=== PATIENT | female | born 1975 | race Caucasian/White ===

== ENCOUNTER → 2020-08-11 12:19 | Outpatient (BNVA) | payer MEDICARE, SELFPAY | PROVIDERS: PCP Internal Medicine; Referring Provider Internal Medicine; Visit Provider Dietitian, Registered | DX: Z76.89 Persons encountering health services in other specified circumstances (principal) ==

== ENCOUNTER → 2020-10-16 08:24 | Outpatient (BNVA) | payer MEDICARE, SELFPAY | PROVIDERS: Visit Provider Physician Assistant | DX: Z76.89 Persons encountering health services in other specified circumstances (principal) ==

== ENCOUNTER → 2020-10-21 13:48 | Outpatient (BNVA) | payer MEDICARE, SELFPAY | PROVIDERS: PCP Internal Medicine; Visit Provider Physician Assistant | DX: Z90.3 Acquired absence of stomach [part of] (principal); Z98.84 Bariatric surgery status | CPT/HCPCS: Q3014 ==

== ENCOUNTER 2020-11-19 11:56 | Outpatient (REF) | payer MEDICARE, SELFPAY ==
[2020-11-19 13:27] LABS: MANUAL DIFF FLAG NO
[2020-11-19 13:46] LABS: Basophils Percent Auto 0.2 % (0-2); Eosinophils Absolute Auto 0.2 X10*3/uL (0.0-0.4); Eosinophils Percent Auto 5.5 % (0-4); Hematocrit 45.2 % (37-47); Hemoglobin 14.4 g/dl (12.0-16.0); Imm Gran Abs Auto 0.01 X10*3/uL (0.00-0.03); Imm Gran Pct Auto 0.2 % (0.0-0.4); Lymphocytes Absolute Auto 1.2 X10*3/uL (1.2-4.9); Lymphocytes Percent Auto 28.6 % (20-40); Mean Corpuscular HGB Conc 31.9 g/dl (31.0-35.0); Mean Corpuscular Hemoglobin 28.9 pg (27.0-33.0); Mean Corpuscular Volume 90.8 fL (80-98); Mean Platelet Volume 10.8 fL (9.4-12.3); Monocytes Absolute Auto 0.2 X10*3/uL (0.1-1.2); Monocytes Percent Auto 4.8 % (2-11); Neutrophils Absolute Auto 2.6 X10*3/uL (2.0-8.3); Neutrophils Percent Auto 60.7 % (45-73); Platelet Count 274 X10*3/uL (160-400); Red Blood Count 4.98 X10*6/uL (4.20-5.50); Red Cell Distribution Width 12.7 % (11.0-16.0); White Blood Count 4.2 X10*3/uL (4.8-10.8)
[2020-11-19 14:07] LABS: Alanine Aminotransferase 9 U/L (0-31); Albumin Level 4.8 g/dL (3.5-5.0); Alkaline Phosphatase 88 U/L (39-117); Anion Gap 14 (12-20); Aspartate Amino Transferase 23 U/L (5-31); Bilirubin Total 0.5 mg/dL (0.0-1.0); Blood Urea Nitrogen 15 mg/dL (9-16); Calcium 9.2 mg/dL (8.4-10.2); Carbon Dioxide 27 mmol/L (22-29); Chloride 106 mmol/L (96-108); Estimated Glomerular Filt Rate > 60; Glucose Random 48 mg/dL (60-115); Potassium 3.8 mmol/l (3.3-5.1); Sodium 143 mmol/L (135-145); Total Protein 8.4 g/dL (6.5-8.0)
[2020-11-19 14:37] LABS: Erythrocyte Sedimentation Rate 19 MM/HR (0-20)
== END 2020-11-19 11:57 | disposition home or self-care (01) ==
LOC: HO.LAB 11:56
PROVIDERS: PCP Internal Medicine; Visit Provider Student in an Organized Health Care Education/Training Program
DX: M05.9 Rheumatoid arthritis with rheumatoid factor, unspecified (principal); M79.7 Fibromyalgia; Z79.899 Other long term (current) drug therapy
CPT/HCPCS: 36415; 80053; 85025; 85652; 86140

== ENCOUNTER 2021-01-09 15:39 | Emergency (ER) | payer MEDICARE, SELFPAY ==
--- NOTE | ~2021-01-09 | XR_ITS ---
EXAMINATION: XR LUMBOSACRAL SPINE XR ELBOW LEFT XR KNEE RIGHT CLINICAL INFORMATION: Status post fall COMPARISON: CT 05/22/2019. Right knee radiographs 11/18/2014 TECHNIQUE: AP and lateral views of the lumbar spine with an additional coned down lateral spot view of the lumbosacral junction. AP, lateral, and oblique views of left elbow. AP, lateral, and bilateral oblique views of the right knee. FINDINGS: 5 non-rib bearing lumbar type vertebral bodies are seen. Prior posterior spinal fusion L4-S1. Intervertebral disc spacers at L4-L5 and L5-S1. There is degenerative endplate irregularity of the superior endplate of S1. Normal sagittal alignment. Vertebral body heights are maintained. No acute osseous abnormality seen. The left elbow is intact. No fracture, dislocation, or joint effusion seen. There is mild medial compartment joint space narrowing of the right knee. No fracture, dislocation, or joint effusion. XR/XR lumbar spine 2-3V IMPRESSION: No acute osseous abnormality of the left elbow, right knee, or lumbar spine.
--- NOTE | ~2021-01-09 | XR_ITS ---
EXAMINATION: XR LUMBOSACRAL SPINE XR ELBOW LEFT XR KNEE RIGHT CLINICAL INFORMATION: Status post fall COMPARISON: CT 05/22/2019. Right knee radiographs 11/18/2014 TECHNIQUE: AP and lateral views of the lumbar spine with an additional coned down lateral spot view of the lumbosacral junction. AP, lateral, and oblique views of left elbow. AP, lateral, and bilateral oblique views of the right knee. FINDINGS: 5 non-rib bearing lumbar type vertebral bodies are seen. Prior posterior spinal fusion L4-S1. Intervertebral disc spacers at L4-L5 and L5-S1. There is degenerative endplate irregularity of the superior endplate of S1. Normal sagittal alignment. Vertebral body heights are maintained. No acute osseous abnormality seen. The left elbow is intact. No fracture, dislocation, or joint effusion seen. There is mild medial compartment joint space narrowing of the right knee. No fracture, dislocation, or joint effusion. XR/XR elbow LT 2V IMPRESSION: No acute osseous abnormality of the left elbow, right knee, or lumbar spine.
--- NOTE | ~2021-01-09 | XR_ITS ---
EXAMINATION: XR LUMBOSACRAL SPINE XR ELBOW LEFT XR KNEE RIGHT CLINICAL INFORMATION: Status post fall COMPARISON: CT 05/22/2019. Right knee radiographs 11/18/2014 TECHNIQUE: AP and lateral views of the lumbar spine with an additional coned down lateral spot view of the lumbosacral junction. AP, lateral, and oblique views of left elbow. AP, lateral, and bilateral oblique views of the right knee. FINDINGS: 5 non-rib bearing lumbar type vertebral bodies are seen. Prior posterior spinal fusion L4-S1. Intervertebral disc spacers at L4-L5 and L5-S1. There is degenerative endplate irregularity of the superior endplate of S1. Normal sagittal alignment. Vertebral body heights are maintained. No acute osseous abnormality seen. The left elbow is intact. No fracture, dislocation, or joint effusion seen. There is mild medial compartment joint space narrowing of the right knee. No fracture, dislocation, or joint effusion. XR/XR knee RT 2V IMPRESSION: No acute osseous abnormality of the left elbow, right knee, or lumbar spine.
[2021-01-09 15:44] VITALS: BP 155/98; PULSE 82; RESP 16; TEMP 36.3; O2SAT 100; BMI 30.4
--- NOTE | 2021-01-09 17:42 | ED_ITS ---
HPI - Fall General Chief Complaint: Fall Stated Complaint: R side pain/back pain S/P fall Time Seen by Provider: 01/09/21 15:59 Source: patient Mode of arrival: ambulatory Limitations: no limitations History of Present Illness HPI Narrative: Slip and fall at home yesterday on ice complaining of right knee, lower back and left elbow pain. Denies any head injury, no LOC, no neck pain. Onset (ago): day(s) Fall from: standing Fall witnessed: yes, by family Place fall occurred: home Loss of consciousness: none Prolonged down time: no Symptoms prior to fall: none Context: tripped/slipped Location of injury: other (Left level, lower back, right knee) Associated symptoms (after fall): denies Related Data Home Medications Medication Instructions Recorded Confirmed albuterol sulfate 90 mcg/actuation 2 puff INHALATION Q4-6H PRN 08/06/20 10/21/20 aerosol inhaler buprenorphine 8 mg-naloxone 2 mg 2 film SUBLINGUAL DAILY 08/06/20 10/21/20 sublingual film bupropion HCl 100 mg tablet 100 mg PO TID 08/06/20 10/21/20 clonazepam 1 mg tablet 1 mg PO BID 08/06/20 10/21/20 dicyclomine 10 mg capsule 10 mg PO TID 08/06/20 10/21/20 fluticasone propionate 50 1 spray INTRANASAL DAILY 08/06/20 10/21/20 mcg/actuation nasal spray,suspension hydroxychloroquine 200 mg tablet 200 mg PO BID 08/06/20 10/21/20 [id number]-opt-[id number] fumarate 18 1 tab-cap PO DAILY 08/06/20 10/21/20 mg-FA 600 mcg-vit K 40 mcg capsule omeprazole 40 mg-sodium 1 cap PO DAILY 08/06/20 08/06/20 bicarbonate 1.1 gram capsule ondansetron 4 mg disintegrating 4 mg PO Q8H 08/06/20 08/06/20 tablet pantoprazole 40 mg tablet,delayed 40 mg PO DAILY 08/06/20 08/06/20 release sod picosulf 10 mg-magnes 3.5 160 ml PO DAILY 08/06/20 08/06/20 gram-citric 12 gram/160 mL oral solution mecobalamin (vitamin B12) 1,000 1,000 mcg PO DAILY 10/21/20 10/21/20 mcg chewable tablet Previous Rx's Medication Instructions Recorded tizanidine 4 mg tablet 4 mg PO TID PRN #90 tab 08/21/20 linaclotide 290 mcg capsule 290 mcg PO QAM #30 cap 09/11/20 alcohol swabs 1 pad TOPICAL DIRECTED #100 pad 10/06/20 folic acid 1 mg tablet 1 mg PO QAM #30 tab 10/28/20 gabapentin 400 mg capsule 400 mg PO TID #90 cap 11/04/20 methotrexate (PF) 25 mg/0.5 mL 25 mg SUBCUT QWEEK #2 ml 12/01/20 subcutaneous auto-injector ibuprofen 600 mg PO Q6H PRN #20 tab 01/09/21 Allergies Allergy/AdvReac Type Severity Reaction Status Date / Time shellfish derived Allergy Severe ANAPHYLAXIS Unverified 07/23/20 16:59 [SHELLFISH DERIVED] latex [LATEX] Allergy Intermediate RASH Unverified 07/23/20 16:59 onion [ONION] Allergy Intermediate RASH Unverified 07/23/20 16:59 ENVIROMENTAL Allergy Intermediate HAYFEVER Uncoded 07/23/20 16:59 Food Allergy Formula Allergy Unknown Uncoded 09/11/19 00:00 latex Allergy Unknown Uncoded 06/24/20 00:00 Onions Allergy Unknown Uncoded 06/24/20 00:00 Pt states no medication Allergy Unknown Uncoded 06/24/20 00:00 allerg seasonal allergies Allergy Unknown Uncoded 09/11/19 00:00 shellfish Allergy Unknown Uncoded 06/24/20 00:00 Review of Systems Review of Systems: Constitutional: No Weight loss, No Fever, No Chills, No Night Sweats, No Fatigue, No Malaise ENT/Mouth: No Hearing loss, No Ear Pain, No Nasal Congestion, No Sinus Pain, No Hoarseness, No sore throat, No Rhinorrhea, No Swallowing Difficulty Eyes: No Eye Pain, No Swelling, No Redness, No Foreign Body, No Discharge, No Vision Changes Cardiovascular: No Chest Pain, No SOB, No Dyspnea on Exertion, No Orthopnea, No Edema, No Palpitations Respiratory: No Cough, No Sputum, No Wheezing, No Dyspnea Gastrointestinal: No Nausea, No Vomiting, No Diarrhea, No Constipation, No abdominal Pain, No Hematochezia, No Melena Genitourinary: No Dysuria, No Urinary Frequency, No Hematuria, No Urinary Incontinence, No Urgency, No Flank Pain, No Urinary Flow Changes, No Hesitancy Musculoskeletal: No joint pain, No Myalgias, No Joint Swelling, as noted per HPI Skin: No Skin Lesions, No rash Neuro: No Weakness, No Numbness, No Paresthesias, No Loss of Consciousness, No Dizziness, No Headache Psych: No Social Issues Heme/Lymph: No Bruising, No Bleeding,No Lymphadenopathy Endocrine: No Polyuria, No Polydipsia, No Temperature Intolerance Yes all other systems are reviewed and are negative [facility] Past Medical History Medical History Anemia Arthritis Asthma Carpal tunnel syndrome on both sides Depression Fibromyalgia Hypertension Kidney calculi Surgical History H/O abdominoplasty H/O section H/O gastric bypass H/O hemorrhoidectomy H/O tubal ligation History of bilateral breast reduction surgery History of knee surgery Social History Social History Advance Directives: No Advance Directives Information Provided: Yes Physical Exam Vital Signs: Vital Signs: Last Vital Signs Temp 97.3 F 01/09/21 15:44 Pulse 82 01/09/21 15:44 Resp 16 01/09/21 15:44 BP 155/98 H 01/09/21 15:44 Pulse Ox 100 01/09/21 15:44 Body Mass Index 30.4 Reviewed Const: General: cooperative and healthy appearing; No acute distress or intoxicated appearing Nutritional Appearance: overweight Orientation/consciousness: patient oriented x3 HENMT: Head: Yes normal to inspection Ears: hearing grossly normal bilaterally Eyes: General: appearance normal, both eyes and all related structures Visual White: normal visual white by confrontation Neck: Neck: Yes normal visual inspection, No positive Brudzinski's sign, No positive Kernig's sign and No tender Thyroid: Thyroid normal Chest: Chest palpation & inspection: normal inspection of the chest, no crepitus and no tenderness Resp: Effort & Inspection: normal respiratory effort Auscultation: clear to auscultation bilaterally Cardio: Jugular venous distension: no JVD Rhythm: regular rhythm Heart sounds: S1 normal heart sound present and S2 normal heart sound present GI: Inspection: Yes normal to inspection Palpation (GI): Soft to palpation Percussion: Yes normal to percussion Auscultation: normal bowel sounds : General: Yes no CVA tenderness Back/Spine/Pelvis: Back: no CVA tenderness Thoracic/Lumbar Spine: paraspinal muscle tenderness (No step-off, rash) on the right Skin: Other: No signs of abrasion or ecchymosis General skin exam: no rashes or lesions noted Neuro: General: patient oriented x3 Extrem: General: Yes normal to inspection Right upper extremity: normal to inspection, full ROM and elbow/forearm Details: tenderness Location: of the olecranon Right lower extremity: full ROM and knee Details: normal to inspection, tenderness Location: of the infrapatellar area and other (Otherwise ligament exam within normal limits) MDM - Fall MDM Narrative Medical decision making narrative: Mechanical fall without prolonged downtime no prodromal symptoms AP strain /contusion type injury plain films rule out acute osseous and treat with muscle relaxants/NSAIDs. Medical Records Attestation: I reviewed the patient's medical records. Lab Data Attestation: I reviewed the patient's lab results. Discharge Plan Discharge Clinical Impression: Fall, Acute lumbar myofascial strain, Contusion Patient Disposition: Home, Self-Care Instructions: Muscle Strain (ED), Contusion in Adults (ED) Additional Instructions: The x-rays of you're right knee lower back and left elbow did not show any evidence of any fracture You have soft tissue contusion and muscle strain You need to do gentle stretching warm compresses and take anti-inflammatory medications such as ibuprofen as prescribed and muscle relaxants such as cyclobenzaprine which will give her prescription today Do not drink alcohol or drive while taking this medication as it can make her sleepy and drowsy Follow up with her primary care doctor as needed Return if any concerns worsening symptoms Thank you Prescriptions: New ibuprofen 600 mg tablet 600 mg PO Q6H PRN (Reason: pain) Qty: 20 RF: 0 No Action tizanidine 4 mg tablet 4 mg PO TID PRN (Reason: muscle spasticity) Qty: 90 RF: 5 linaclotide [Linzess] 290 mcg capsule 290 mcg PO QAM Qty: 30 RF: 3 alcohol swabs [Alcohol Prep Pads] Pads, Medicated 1 pad topical DIRECTED Qty: 100 RF: 5 folic acid 1 mg tablet 1 mg PO QAM Qty: 30 RF: 5 gabapentin 400 mg capsule 400 mg PO TID Qty: 90 RF: 3 Rasuvo (PF) 25 mg/0.5 mL auto-injector 25 mg subcut QWEEK Qty: 2 RF: 3 hydroxychloroquine [Plaquenil] 200 mg tablet 200 mg PO BID RF: 0 Clenpiq 10 mg-3.5 gram -12 gram/160 mL solution 160 ml PO DAILY RF: 0 ondansetron 4 mg tablet,disintegrating 4 mg PO Q8H RF: 0 omeprazole-sodium bicarbonate [Zegerid] 40-1.1 mg-gram capsule 1 cap PO DAILY RF: 0 dicyclomine 10 mg capsule 10 mg PO TID RF: 0 pantoprazole 40 mg tablet,delayed release (DR/EC) 40 mg PO DAILY RF: 0 Multi For Her 18 mg iron-600 mcg-40 mcg capsule 1 tab-cap PO DAILY RF: 0 fluticasone propionate 50 mcg/actuation spray,suspension 1 spray intranasal DAILY RF: 0 bupropion HCl 100 mg tablet 100 mg PO TID RF: 0 buprenorphine-naloxone [Suboxone] 8-2 mg film 2 film sublingual DAILY RF: 0 albuterol sulfate 90 mcg/actuation HFA aerosol inhaler 2 puff inhalation Q4-6H PRNRF: 0 clonazepam 1 mg tablet 1 mg PO BID RF: 0 mecobalamin (vitamin B12) 1,000 mcg tablet,chewable 1,000 mcg PO DAILY RF: 0 Referrals: Kyra Drisocll MD [Primary Care Provider] - 1 week Interventions: ED Discharge Assessment Last Done: 01/09/21 18:05 Discharge Date/Time: 01/09/21 18:05
== END 2021-01-09 18:05 | disposition home or self-care (01) ==
PROVIDERS: Emergency Provider Emergency Medicine; PCP Internal Medicine
DX: S39.012A Strain of muscle, fascia and tendon of lower back, initial encounter (principal); S50.02XA Contusion of left elbow, initial encounter; S80.01XA Contusion of right knee, initial encounter; W00.0XXA Fall on same level due to ice and snow, initial encounter; I10 Essential (primary) hypertension; Y93.89 Activity, other specified; Y92.014 Private driveway to single-family (private) house as the place of occurrence of the external cause; Y99.9 Unspecified external cause status
CPT/HCPCS: 72100; 73070; 73560; 99283

== ENCOUNTER → 2021-02-03 08:09 | Outpatient (BNVA) | payer MEDICARE, SELFPAY | PROVIDERS: PCP Internal Medicine; Visit Provider Physician Assistant | DX: Z13.89 Encounter for screening for other disorder (principal) | CPT/HCPCS: 99212 ==

== ENCOUNTER → 2021-03-02 11:01 | Outpatient (BNVA) | payer MEDICARE, SELFPAY | PROVIDERS: PCP Internal Medicine; Visit Provider Internal Medicine Gastroenterology | CPT/HCPCS: Q3014 ==

== ENCOUNTER 2021-03-04 08:39 | Outpatient (REF) | payer OTHER, SELFPAY ==
[2021-03-04 09:42] LABS: Anion Gap 12 (12-20); Blood Urea Nitrogen 20 mg/dL (9-16); Calcium 9.8 mg/dL (8.4-10.2); Carbon Dioxide 29 mmol/L (22-29); Chloride 102 mmol/L (96-108); Estimated Glomerular Filt Rate > 60; Glucose Fasting 95 mg/dL (60-99); Potassium 4.2 mmol/L (3.3-5.1); Sodium 139 mmol/L (135-145)
[2021-03-04 09:50] LABS: Glucose Fasting 95 mg/dL (60-99)
[2021-03-04 10:04] LABS: Free T4 (Free Thyroxine) 0.86 ng/dL (0.71-1.85); Thyroid Stimulating Hormone 1.93 uIU/mL (0.32-4.0); Vitamin D 25-OH Total 18.1 ng/mL (>30)
[2021-03-04 10:54] LABS: Glucose 1 Hour 161 mg/dL
[2021-03-04 12:51] LABS: Glucose 2 Hour 27 mg/dL
[2021-03-04 13:27] LABS: Glucose 3 Hour 65 mg/dL
[2021-03-05 05:07] LABS: C Peptide 1.09 ng/mL (0.80-3.85)
[2021-03-05 10:17] LABS: DHEA Sulfate 102 mcg/dL (19-231); Insulin Level Total 4.7 uIU/mL
[2021-03-05 22:43] LABS: Adrenocorticotropic Hormone 52 pg/mL (6-50)
[2021-03-10 04:37] LABS: Proinsulin <4.0 pmol/L (< OR = 18.8)
[2021-03-10 21:11] LABS: Insulin Auto Antibody <0.4 U/mL (<0.4)
[2021-03-11 08:22] LABS: Chlorpropamide None Detected; Glimepiride None Detected; Glipizide None Detected; Glyburide None Detected; Nateglinide None Detected; Pioglitazone None Detected; Repaglinide None Detected; Rosiglitazone None Detected; Tolazamide None Detected; Tolbutamide None Detected
[2021-03-12 14:42] LABS: Insulin Growth Factor 2 473 ng/mL (267-616)
[2021-03-19 08:42] LABS: Beta-Hydroxybutyrate 0.5 mg/dL (0.0-3.0)
== END 2021-03-04 08:40 | disposition home or self-care (01) ==
LOC: HO.LAB 08:39
PROVIDERS: PCP Internal Medicine; Visit Provider Internal Medicine
DX: E16.2 Hypoglycemia, unspecified (principal); E55.9 Vitamin D deficiency, unspecified
CPT/HCPCS: 36415; 80048; 80337; 82010; 82024; 82306; 82533; 82627; 82951; 82952; 83525; 83789; 84206; 84439; 84443; 84681; 86337

== ENCOUNTER 2021-03-10 07:51 | Outpatient (REF) | payer OTHER, SELFPAY ==
[2021-03-11 20:56] LABS: Adrenocorticotropic Hormone 14 pg/mL (6-50)
[2021-03-17 12:44] LABS: Dexamethasone 123 ng/dL
== END 2021-03-10 07:52 | disposition home or self-care (01) ==
LOC: HO.LAB 07:51
PROVIDERS: PCP Internal Medicine; Visit Provider Internal Medicine
DX: R79.89 Other specified abnormal findings of blood chemistry (principal)
CPT/HCPCS: 36415; 80299; 82024; 82533

== ENCOUNTER 2021-03-22 12:43 | Day surgery (SDC) | payer OTHER, SELFPAY ==
--- NOTE | 2021-03-19 08:58 | P.CONAN_ITS ---
HPI - Anesthesia Eval Consult details Narrative: 45yo F for Upper Endoscopy and Colonoscopy s/p colonoscopy 07/2020 with [facility] Active Problems Active Problems: All Active Problems (Updated 03/08/21 @ 16:01 by [place] Ospina DO) Elevated cortisol level (Acute) Hypoglycemia (Acute) Epigastric abdominal pain (Acute) Excess skin (Acute) Vitamin D deficiency (Acute) Fibromyalgia (Acute) Arthritis (Acute) History of sleeve gastrectomy (Acute) Past Medical History Medical History Anemia Arthritis Asthma Carpal tunnel syndrome on both sides Depression Elevated cortisol level Fibromyalgia Hypertension Hypoglycemia Kidney calculi Family History Family History Father Diabetes HTN (hypertension) Cancer Heart disease Mother Cancer Diabetes HTN (hypertension) Surgical History Surgical History H/O abdominoplasty H/O section H/O colonoscopy H/O esophagogastroduodenoscopy H/O gastric bypass H/O hemorrhoidectomy H/O tubal ligation History of bilateral breast reduction surgery History of knee surgery Social History Social History Household Members: Children Alcohol intake: current Alcohol intake frequency: does not drink Smoking Status: Current some day smoker Substance Use Type: Marijuana Meds Allergies Allergy/AdvReac Type Severity Reaction Status Date / Time shellfish derived Allergy Severe ANAPHYLAXIS Verified 03/03/21 11:49 [SHELLFISH DERIVED] latex [LATEX] Allergy Intermediate RASH Verified 03/03/21 11:49 onion [ONION] Allergy Intermediate RASH Verified 03/03/21 11:49 ENVIROMENTAL Allergy Intermediate HAYFEVER Uncoded 03/03/21 11:49 Food Allergy Formula Allergy Unknown Anaphylaxis Uncoded 03/03/21 11:49 latex Allergy Unknown Anaphylaxis Uncoded 03/03/21 11:49 Onions Allergy Unknown Anaphylaxis Uncoded 03/03/21 11:49 Pt states no medication Allergy Unknown Anaphylaxis Uncoded 03/03/21 11:49 allerg seasonal allergies Allergy Unknown Anaphylaxis Uncoded 03/03/21 11:49 shellfish Allergy Unknown Anaphylaxis Uncoded 03/03/21 11:49 Home Medications Medication Instructions Recorded Confirmed Last Taken Type albuterol sulfate 90 mcg/actuation 2 puff INHALATION Q4-6H PRN 08/06/20 03/03/21 Unknown History aerosol inhaler buprenorphine 8 mg-naloxone 2 mg 2 film SUBLINGUAL DAILY 08/06/20 03/03/21 Unknown History sublingual film bupropion HCl 100 mg tablet 100 mg PO TID 08/06/20 03/03/21 Unknown History clonazepam 1 mg tablet 1 mg PO BID 08/06/20 03/03/21 Unknown History fluticasone propionate 50 1 spray INTRANASAL DAILY 08/06/20 03/03/21 Unknown History mcg/actuation nasal spray,suspension hydroxychloroquine 200 mg tablet 200 mg PO BID 08/06/20 03/03/21 Unknown History tzdycxhmy-evc-picf fumarate 18 1 tab-cap PO DAILY 08/06/20 03/03/21 Unknown History mg-FA 600 mcg-vit K 40 mcg capsule omeprazole 40 mg-sodium 1 cap PO DAILY 08/06/20 03/03/21 Unknown History bicarbonate 1.1 gram capsule ondansetron 4 mg disintegrating 4 mg PO Q8H 08/06/20 03/03/21 Unknown History tablet pantoprazole 40 mg tablet,delayed 40 mg PO DAILY 08/06/20 03/03/21 Unknown History release sod picosulf 10 mg-magnes 3.5 160 ml PO DAILY 08/06/20 03/03/21 Unknown History gram-citric 12 gram/160 mL oral solution mecobalamin (vitamin B12) 1,000 1,000 mcg PO DAILY 10/21/20 03/03/21 Unknown History mcg chewable tablet buspirone 15 mg tablet 15 mg PO BID 03/02/21 03/03/21 Unknown History vitamin E (dl, acetate) 45 mg (100 100 unit PO BEDTIME 03/02/21 03/03/21 Unknown History unit) capsule blood-glucose meter #1 ea 03/03/21 03/03/21 Unknown History ergocalciferol (vitamin D2) 1,250 1,250 mcg PO 2XW 03/03/21 03/03/21 Unknown History mcg (50,000 unit) capsule glucose 4 gram chewable tablet 4 g PO DIRECTED 03/03/21 03/03/21 Unknown Hist ory lancets 33 gauge #100 ea 03/03/21 03/03/21 Unknown History montelukast 10 mg tablet 10 mg PO QPM 03/03/21 03/03/21 Unknown History thiamine HCl (vitamin B1) 50 mg 50 mg PO QPM 03/03/21 03/03/21 Unknown History tablet Exam Exam Date and Time: March 19, 2021 0858 Pertinent Lab Results Pertinent Lab Results: Laboratory Tests 03/04/21 09:00 Sodium 139 Potassium 4.2 Chloride 102 Carbon Dioxide 29 BUN 20 H Creatinine 0.82 Assessment and Plan Assessment Anesthesia Assessment: Chart Reviewed
[2021-03-22 13:48] VITALS: BP 109/63; PULSE 48; RESP 15; TEMP 36.1; O2SAT 99; BMI 29.2
[2021-03-22] MEDS: Lactated Ringers 1,000 ML 100 ML IVCONT (14:00)
[2021-03-22 14:06] LABS: Glucose, Whole Blood 76 mg/dL (60-115)
--- NOTE | 2021-03-22 14:20 | PC.NURSE ---
Patients BS 76, Asymptomatic. Dr. Dee notified. 100ml dextrose 5% IV hung wide open per order. BS checked again after administration, 76. Patient remains asymptomatic. Dr. Dee aware. Okay to proceed.
--- NOTE | 2021-03-22 14:31 | MHC.SHP ---
Pre-Procedural Eval Section B Chief Complaint: epigastric pain Relevant Family History (Specify if Yes): Yes Relevant Social History: Other (specify) (THC) Present Medications: see Short Stay Collaborative assessment Medical History: Significant History (Anemia Arthritis Asthma Carpal tunnel syndrome on both sides Depression Elevated cortisol level Fibromyalgia Hypertension Hypoglycemia Kidney calculi) History of Previous Operations: Relevant previous surgery/procedure and date(s) (H/O abdominoplasty H/O section H/O colonoscopy H/O esophagogastroduodenoscopy H/O gastric bypass H/O hemorrhoidectomy H/O tubal ligation History of bilateral breast reduction surgery History of knee surgery) Allergies: Allergies Allergy/AdvReac Type Severity Reaction Status Date / Time shellfish derived Allergy Severe ANAPHYLAXIS Verified 03/03/21 11:49 [SHELLFISH DERIVED] latex [LATEX] Allergy Intermediate RASH Verified 03/03/21 11:49 onion [ONION] Allergy Intermediate RASH Verified 03/03/21 11:49 ENVIROMENTAL Allergy Intermediate HAYFEVER Uncoded 03/03/21 11:49 Food Allergy Formula Allergy Unknown Anaphylaxis Uncoded 03/03/21 11:49 latex Allergy Unknown Anaphylaxis Uncoded 03/03/21 11:49 Onions Allergy Unknown Anaphylaxis Uncoded 03/03/21 11:49 Pt states no medication Allergy Unknown Anaphylaxis Uncoded 03/03/21 11:49 allerg seasonal allergies Allergy Unknown Anaphylaxis Uncoded 03/03/21 11:49 shellfish Allergy Unknown Anaphylaxis Uncoded 03/03/21 11:49 Review of Systems Sugical H&P ROS: Negative: Constitution, Cardiovascular, Respiratory, Neurological, Psychiatric, Hem-Onc, Allergic/Immunologic, Gastrointestinal, Genitourinary, Musculoskeletal, Integumentary, Endocrine and Eyes/Ears/Nose/Throat Exam Surgical H&P Exam: Normal: HEENT, Normal: Heart, Normal: Lungs, Normal: Extremities, Normal: Abdomen, Normal: Skin and Normal: Neurological Plan Diagnosis/Plan: Unchanged I have reviewed the history and physical and performed a pertinent physical examination on my patient. No changes have occurred unless specified.
--- NOTE | 2021-03-22 14:43 | P.CONAN_ITS ---
[facility] Active Problems Active Problems: All Active Problems (Updated 03/08/21 @ 16:01 by [place] young DO) Elevated cortisol level (Acute) Hypoglycemia (Acute) Epigastric abdominal pain (Acute) Excess skin (Acute) Vitamin D deficiency (Acute) Fibromyalgia (Acute) Arthritis (Acute) History of sleeve gastrectomy (Acute) Past Medical History Medical History Anemia Arthritis Asthma Carpal tunnel syndrome on both sides Depression Elevated cortisol level Fibromyalgia Hypertension Hypoglycemia Kidney calculi Family History Family History Father Diabetes HTN (hypertension) Cancer Heart disease Mother Cancer Diabetes HTN (hypertension) Surgical History Surgical History H/O abdominoplasty H/O section H/O colonoscopy H/O esophagogastroduodenoscopy H/O gastric bypass H/O hemorrhoidectomy H/O tubal ligation History of bilateral breast reduction surgery History of knee surgery Social History Social History Household Members: Children Alcohol intake: current Alcohol intake frequency: does not drink Smoking Status: Current some day smoker Use of substances other than those prescribed or required for medical reasons: Yes Substance Use Type: Marijuana Substance Use Frequency: Occasionally Advance Directives: No Advance Directives Information Provided: Yes Recently lost weight without trying: No Meds Allergies Allergy/AdvReac Type Severity Reaction Status Date / Time shellfish derived Allergy Severe ANAPHYLAXIS Verified 03/03/21 11:49 [SHELLFISH DERIVED] latex [LATEX] Allergy Intermediate RASH Verified 03/03/21 11:49 onion [ONION] Allergy Intermediate RASH Verified 03/03/21 11:49 ENVIROMENTAL Allergy Intermediate HAYFEVER Uncoded 03/03/21 11:49 Food Allergy Formula Allergy Unknown Anaphylaxis Uncoded 03/03/21 11:49 latex Allergy Unknown Anaphylaxis Uncoded 03/03/21 11:49 Onions Allergy Unknown Anaphylaxis Uncoded 03/03/21 11:49 Pt states no medication Allergy Unknown Anaphylaxis Uncoded 03/03/21 11:49 allerg seasonal allergies Allergy Unknown Anaphylaxis Uncoded 03/03/21 11:49 shellfish Allergy Unknown Anaphylaxis Uncoded 03/03/21 11:49 Active Medications: Current Medications Generic Name Dose Route Start Last Admin Trade Name Freq PRN Reason Stop Dose Admin Albuterol Sulfate 2.5 mg 03/22/21 13:19 Albuterol Sulfate (0.083%) 2.5 Mg/3 Ml Vial.Neb INHALE ONCE PRN Shortness of Breath/Wheezing Lactated Ringer's 1,000 mls @ 100 mls/hr 03/22/21 13:30 03/22/21 14:00 Lr IVCONT 100 mls/hr .Q10H BONITA Administration Home Medications Medication Instructions Recorded Confirmed Last Taken Type albuterol sulfate 90 mcg/actuation 2 puff INHALATION Q4-6H PRN 08/06/20 03/03/21 Unknown History aerosol inhaler buprenorphine 8 mg-naloxone 2 mg 2 film SUBLINGUAL DAILY 08/06/20 03/03/21 Unknown History sublingual film bupropion HCl 100 mg tablet 100 mg PO TID 08/06/20 03/03/21 Unknown History clonazepam 1 mg tablet 1 mg PO BID 08/06/20 03/03/21 Unknown History fluticasone propionate 50 1 spray INTRANASAL DAILY 08/06/20 03/03/21 Unknown History mcg/actuation nasal spray,suspension hydroxychloroquine 200 mg tablet 200 mg PO BID 08/06/20 03/03/21 Unknown History rqbeoxeqv-iei-rsuh fumarate 18 1 tab-cap PO DAILY 08/06/20 03/03/21 Unknown History mg-FA 600 mcg-vit K 40 mcg capsule omeprazole 40 mg-sodium 1 cap PO DAILY 08/06/20 03/03/21 Unknown History bicarbonate 1.1 gram capsule ondansetron 4 mg disintegrating 4 mg PO Q8H 08/06/20 03/03/21 Unknown History tablet pantoprazole 40 mg tablet,delayed 40 mg PO DAILY 08/06/20 03/03/21 Unknown History release sod picosulf 10 mg-magnes 3.5 160 ml PO DAILY 08/06/20 03/03/21 Unknown History gram-citric 12 gram/160 mL oral solution mecobalamin (vitamin B12) 1,000 1,000 mcg PO DAILY 10/21/20 03/03/21 Unknown History mcg chewable tablet buspirone 15 mg tablet 15 mg PO BID 03/02/21 03/03/21 Unknown History vitamin E (dl, acetate) 45 mg (100 100 unit PO BEDTIME 03/02/21 03/03/21 Unknown History unit) capsule blood-glucose meter #1 ea 03/03/21 03/03/21 Unknown History ergocalciferol (vitamin D2) 1,250 1,250 mcg PO 2XW 03/03/21 03/03/21 Unknown History mcg (50,000 unit) capsule glucose 4 gram chewable tablet 4 g PO DIRECTED 03/03/21 03/03/21 Unknown History lancets 33 gauge #100 ea 03/03/21 03/03/21 Unknown History montelukast 10 mg tablet 10 mg PO QPM 03/03/21 03/03/21 Unknown History thiamine HCl (vitamin B1) 50 mg 50 mg PO QPM 03/03/21 03/03/21 Unknown History tablet Exam Exam Date and Time: March 22, 2021 1443 Height,Weight and Vital Signs: Height 5 ft 3 in Weight 74.843 kg Last Vital Signs Temp 97.0 F 03/22/21 13:48 Pulse 48 L 03/22/21 13:48 Resp 15 03/22/21 13:48 BP 109/63 03/22/21 13:48 Pulse Ox 99 03/22/21 13:48 Pertinent Lab Results Pertinent Lab Results: Laboratory Tests 03/22/21 13:45 POC Glucose 76 Airway Mallampati Class: II TM Dist: >3cm Neck ROM: Full Denture: Upper and Lower Partial: Lower Heart: RRR Lungs: CTA
[2021-03-22 14:45] LABS: Glucose, Whole Blood 76 mg/dL (60-115)
--- NOTE | 2021-03-22 15:16 | P.OP_ITS ---
Operative Note Operative Note Date of Service: 03/22/21 Narrative: Operative Information Procedure Description: EGD, Colonoscopy FLEXIBLE TRANSORAL UPPER GASTROINTESTINAL ENDOSCOPY AND COLONOSCOPY PROCEDURE NOTE UPPER ENDOSCOPY Consent: Indications for the procedure and potential complications of bleeding, perforation, reaction to medications and missed diagnosis were discussed with the patient and informed consent was obtained. Instrument: Olympus GIF H 190 J mid size upper endoscope Monitoring: Vital signs and clinical assessment, continuous EKG monitoring, Pulse oximetry, Carbon Dioxide monitoring and blood pressure monitoring were done throughout the procedure. Procedure: The patient was placed in the left lateral decubitis position and pre-procedure medications were administered and a bite block was placed. The endoscope was inserted into the mouth and advanced under direct vision to the jejunum. A careful inspection was made as the upper endoscope was withdrawn including a retroflexed examination of the proximal stomach; Findings and interventions are described below. Findings: Larynx:normal Esophagus: GE junction at 37 cm, diaphragm hiatus at 37 cm, normal mucosa Stomach pouch: Normal mucosa. Biopsies were obtained. Grade 2 flap valve on retroflexed examination of the cardia. Jejunum: Normal Intervention: none COLONOSCOPY Instrument: Olympus variable stiffness pediatric scope 190L Colonoscopy Monitoring: Vital signs and clinical assessment, continuous EKG monitoring, Pulse oximetry, Carbon Dioxide monitoring and blood pressure monitoring were done throughout the procedure. Colon withdrawal time was 8 minutes. Procedure: The patient was placed in the left lateral decubitis position and pre-procedure medications were administered. After a digital rectal examination of the ano-rectum, the video colonoscope was inserted into the rectum and advanced through the colon to the cecum/TI. The colonoscope was slowly withdrawn in a retrograde panoramic fashion and the colon mucosa was carefully examined including a retroflexed view of the rectum. Findings and interventions are described below. Procedure Difficulty:moderate Findings: Terminal Ileum-normal Cecum:normal Ascending Colon: normal Transverse Colon -normal Descending Colon:normal Sigmoid Colon: normal Rectum: Retroflexion with small internal hemorrhoids, grade I Anorectum - normal Colon preparation: [place] Bowel Preparation Scale Right colon; 2 Transverse colon: 2 Left colon; 1 (0 = Unprepared colon segment with mucosa not seen due to solid stool that cannot be cleared. 1 = Portion of mucosa of the colon segment seen, but other areas of the colon segment not well seen due to staining, residual stool and/or opaque liquid. 2 = Minor amount of residual staining, small fragments of stool and/or opaque liquid, but mucosa of colon segment seen well. 3 = Entire mucosa of colon segment seen well with no residual staining, small fragments of stool or opaque liquid) Impression and Post Procedure Diagnosis: Endoscopy Findings: normal Colonoscopy Findings: internal hemorrhoids Plan: Await Pathology results Repeat Colonoscopy in 1-2 years or earlier if clinically indicated High fiber diet leaflet avoid straining at stool, epsom salts and sitz bath, anusol supps or cream prn Above findings were reviewed with the patient and relevant handouts were provided if indicated.
--- NOTE | 2021-03-22 15:16 | PM.OP ---
Brief Operative Note Date of Service: 03/22/21 Pre-op diagnosis: epigastric pain, constipation Post-op diagnosis: same Procedure: see op note Surgeon: Manjula Back MD Anesthesia: MAC Was an Analytics Specialist used for this Procedure?: No Estimated blood loss (mL): 0 Condition: stable Disposition: PACU
[2021-03-22 15:24] VITALS: BP 102/58; PULSE 50; RESP 16; TEMP 36.3; O2SAT 99
[2021-03-22 15:37] VITALS: BP 109/65; PULSE 54; RESP 16; O2SAT 100
[2021-03-22 15:52] VITALS: BP 104/61; PULSE 59; RESP 16; TEMP 36.3; O2SAT 99
[2021-03-22 16:29] LABS: Glucose, Whole Blood 85 mg/dL (60-115)
== END 2021-03-22 16:31 | disposition home or self-care (01) ==
PROVIDERS: PCP Internal Medicine; Visit Provider Internal Medicine Gastroenterology
PROC: (CPT 45378; principal; 2021-03-22 14:10)
DX: K59.00 Constipation, unspecified (principal); R10.13 Epigastric pain; K64.0 First degree hemorrhoids; K44.9 Diaphragmatic hernia without obstruction or gangrene; I10 Essential (primary) hypertension; D64.9 Anemia, unspecified; K64.8 Other hemorrhoids; J45.909 Unspecified asthma, uncomplicated; E16.2 Hypoglycemia, unspecified; R94.7 Abnormal results of other endocrine function studies; Z79.899 Other long term (current) drug therapy; Z91.040 Latex allergy status; Z98.84 Bariatric surgery status; F17.210 Nicotine dependence, cigarettes, uncomplicated; F12.90 Cannabis use, unspecified, uncomplicated
CPT/HCPCS: 45378; 43239; 82947

== ENCOUNTER → 2021-03-23 09:11 | Outpatient (BNVA) | payer OTHER, SELFPAY | PROVIDERS: PCP Internal Medicine; Visit Provider Physician Assistant ==

== ENCOUNTER 2021-03-24 14:00 | Outpatient (RCR) | payer MEDICARE, SELFPAY | END 2021-04-12 13:47 | disposition other institution (70) | LOC: HO.PT 14:00 | PROVIDERS: PCP Internal Medicine; Visit Provider Internal Medicine | DX: M54.5 Low back pain (principal) | CPT/HCPCS: 97110; 97162 ==

== ENCOUNTER 2021-04-13 09:28 | Outpatient (REF) | payer OTHER, SELFPAY ==
[2021-04-13 10:54] LABS: MANUAL DIFF FLAG NO
[2021-04-13 11:06] LABS: Basophils Percent Auto 0.5 % (0-2); Eosinophils Absolute Auto 0.2 X10*3/uL (0.0-0.4); Hematocrit 38.6 % (37-47); Hemoglobin 12.3 g/dl (12.0-16.0); Imm Gran Abs Auto 0.01 X10*3/uL (0.00-0.03); Imm Gran Pct Auto 0.3 % (0.0-0.4); Lymphocytes Absolute Auto 1.3 X10*3/uL (1.2-4.9); Mean Corpuscular HGB Conc 31.9 g/dl (31.0-35.0); Mean Platelet Volume 10.8 fL (9.4-12.3); Monocytes Absolute Auto 0.3 X10*3/uL (0.1-1.2); Monocytes Percent Auto 6.5 % (2-11); Neutrophils Absolute Auto 2.2 X10*3/uL (2.0-8.3); Neutrophils Percent Auto 55.7 % (45-73); Platelet Count 248 X10*3/uL (160-400); Red Blood Count 4.24 X10*6/uL (4.20-5.50); Red Cell Distribution Width 15.1 % (11.0-16.0)
[2021-04-13 11:50] LABS: Erythrocyte Sedimentation Rate 14 MM/HR (0-20)
[2021-04-13 12:02] LABS: Alanine Aminotransferase 7 U/L (0-31); Albumin Level 4.3 g/dL (3.5-5.0); Alkaline Phosphatase 82 U/L (39-117); Anion Gap 10 (12-20); Aspartate Amino Transferase 23 U/L (5-31); Bilirubin Total 0.5 mg/dL (0.0-1.0); Blood Urea Nitrogen 14 mg/dL (9-16); C Reactive Protein 0.24 mg/dL (< or = 0.50); Calcium 9.2 mg/dL (8.4-10.2); Carbon Dioxide 28 mmol/L (22-29); Chloride 107 mmol/L (96-108); Estimated Glomerular Filt Rate > 60; Glucose Random 87 mg/dL (60-115); Potassium 4.4 mmol/L (3.3-5.1); Sodium 141 mmol/L (135-145); Total Protein 7.3 g/dL (6.5-8.0)
== END 2021-04-13 09:29 | disposition home or self-care (01) ==
LOC: HO.LAB 09:28
PROVIDERS: PCP Internal Medicine; Visit Provider Student in an Organized Health Care Education/Training Program
DX: M19.90 Unspecified osteoarthritis, unspecified site (principal)
CPT/HCPCS: 36415; 80053; 85025; 85652; 86140

== ENCOUNTER → 2021-04-26 08:29 | Outpatient (BNVA) | payer OTHER, SELFPAY | PROVIDERS: Visit Provider Internal Medicine | CPT/HCPCS: Q3014 ==

== ENCOUNTER 2021-04-27 13:00 | Outpatient (RCR) | payer OTHER, SELFPAY | END 2021-06-11 11:41 | disposition other institution (70) | LOC: HO.OT 13:00 | PROVIDERS: Visit Provider Student in an Organized Health Care Education/Training Program | DX: M05.9 Rheumatoid arthritis with rheumatoid factor, unspecified (principal) | CPT/HCPCS: 97033; 97110; 97140; 97167 ==

== ENCOUNTER 2021-04-28 06:58 | Outpatient (REF) | payer OTHER, SELFPAY ==
[2021-04-28 08:15] LABS: Alanine Aminotransferase < 6 U/L (0-31); Albumin Level 4.1 g/dL (3.5-5.0); Alkaline Phosphatase 69 U/L (39-117); Anion Gap 9 (12-20); Aspartate Amino Transferase 18 U/L (5-31); Bilirubin Total 0.5 mg/dL (0.0-1.0); Blood Urea Nitrogen 12 mg/dL (9-16); Carbon Dioxide 31 mmol/L (22-29); Chloride 105 mmol/L (96-108); Estimated Glomerular Filt Rate > 60; Glucose Random 101 mg/dL (60-115); Potassium 4.2 mmol/L (3.3-5.1); Sodium 141 mmol/L (135-145); Total Protein 6.7 g/dL (6.5-8.0)
[2021-04-28 08:17] LABS: Vitamin D 25-OH Total 27.5 ng/mL (>30)
[2021-04-30 17:07] LABS: Adrenocorticotropic Hormone 17 pg/mL (6-50)
[2021-05-05 12:27] LABS: Dexamethasone 38 ng/dL
== END 2021-04-28 06:59 | disposition home or self-care (01) ==
LOC: HO.LAB 06:58
PROVIDERS: PCP Internal Medicine; Visit Provider Internal Medicine
DX: R79.89 Other specified abnormal findings of blood chemistry (principal); E16.2 Hypoglycemia, unspecified; E55.9 Vitamin D deficiency, unspecified
CPT/HCPCS: 36415; 80053; 80299; 82024; 82306; 82533

== ENCOUNTER → 2021-05-04 15:44 | Outpatient (BNVA) | payer OTHER, SELFPAY | PROVIDERS: PCP Internal Medicine; Visit Provider Internal Medicine Pulmonary Disease | DX: J45.909 Unspecified asthma, uncomplicated (principal); Z91.09 Other allergy status, other than to drugs and biological substances; G47.33 Obstructive sleep apnea (adult) (pediatric) | CPT/HCPCS: 99202 ==

== ENCOUNTER → 2021-05-07 10:56 | Outpatient (BNVA) | payer OTHER, SELFPAY | PROVIDERS: PCP Internal Medicine; Referring Provider Internal Medicine; Visit Provider Physician Assistant | DX: L98.7 Excessive and redundant skin and subcutaneous tissue (principal); Z90.3 Acquired absence of stomach [part of] | CPT/HCPCS: 99212 ==

== ENCOUNTER → 2021-05-25 15:40 | Outpatient (BNVA) | payer OTHER, SELFPAY | PROVIDERS: PCP Internal Medicine; Visit Provider Student in an Organized Health Care Education/Training Program | DX: M05.9 Rheumatoid arthritis with rheumatoid factor, unspecified (principal); M79.7 Fibromyalgia; Z79.891 Long term (current) use of opiate analgesic; Z79.899 Other long term (current) drug therapy | CPT/HCPCS: 99212 ==

== ENCOUNTER 2021-06-01 12:01 | Emergency (ER) | payer OTHER, SELFPAY ==
--- NOTE | ~2021-06-01 | XR_ITS ---
EXAMINATION: XR CHEST CLINICAL INFORMATION: Chest pain COMPARISON: Chest radiographs 08/08/2019, 02/20/2019 TECHNIQUE: 2 views of the chest were obtained. FINDINGS: Lungs are clear. There is no pneumothorax or pneumomediastinum. No pleural reaction, infiltrate, or effusion. The costophrenic sulci are clear. The heart is normal in size. The hilar and mediastinal contours are unremarkable. No visible acute bony abnormality. XR/XR chest 2V IMPRESSION: Unremarkable examination.
[2021-06-01 12:01] VITALS: BP 135/68; PULSE 43; RESP 16; TEMP 37.3; O2SAT 98; BMI 31.5
--- NOTE | 2021-06-01 12:12 | ECG_ITS ---
Test Reason : WEAKNESS Blood Pressure : / mmHG Vent. Rate : 043 BPM Atrial Rate : 043 BPM P-R Int : 148 ms QRS Dur : 092 ms QT Int : 444 ms P-R-T Axes : 032 024 007 degrees QTc Int : 375 ms Marked sinus bradycardia Abnormal ECG When compared with ECG of 08-AUG-2019 13:21, Vent. rate has decreased BY 23 BPM QT has shortened Referred By: Generic ED Physician Electronically Signed By:STELLA ROBLEDO
[2021-06-01 12:23] LABS: Glucose, Whole Blood 104 mg/dL (60-115)
--- NOTE | 2021-06-01 13:23 | ED.WEAKNESS ---
HPI - Weakness General Chief complaint: Weakness Stated complaint: WEAKNESS X'S 1WEEK,L FOREARM PAIN Time Seen by Provider: 06/01/21 13:06 Source: EMS Mode of arrival: EMS Limitations: no limitations History of Present Illness HPI Narrative: 45 yo female with past medical history of anemia, arthritis, asthma, carpal tunnel syndrome on both sides, depression, seizure disorder, fibromyalgia, seropositive rheumatoid arthritis on methotrexte with complaints of generalized weakness for the last 1 week with feeling lightheaded like she might pass out. Two days ago she started to notice some chest pressure which has been intermittent since then. She feels like this was related to her anxiety. She denies any chest pressure at this time. No shortness of breath, cough, leg swelling, leg pain, fevers or chills. She received her J and J vaccine and January. No sick contact. No recent travel. She tells me she has not had much of an appetite this week. No weight loss. Also complaining of continued left arm pain after a fall in January. She has been seen by her primary care doctor several times for this. She has had negative x-rays. She has done physical therapy with feels like it has not helped. He is scheduling an outpatient MRI for her. She is on Suboxone. She also takes gabapentin, tizanidine. Of note the patient has a heart rate of 43. Patient tells me she used to have a history of tachycardia and was taking medications but has been off of these medications for more than 1 year. Under review of her chart she is noted to have heart rates ranging from 47-52 on her previous visits. Related Data Home Medications Medication Instructions Recorded Confirmed albuterol sulfate 90 mcg/actuation 2 puff INHALATION Q4-6H PRN 08/06/20 05/07/21 aerosol inhaler buprenorphine 8 mg-naloxone 2 mg 2 film SUBLINGUAL DAILY 08/06/20 05/07/21 sublingual film bupropion HCl 100 mg tablet 100 mg PO TID 08/06/20 05/07/21 clonazepam 1 mg tablet 1 mg PO BID 08/06/20 05/07/21 fluticasone propionate 50 1 spray INTRANASAL DAILY 08/06/20 05/07/21 mcg/actuation nasal spray,suspension [id number] fumarate 18 1 tab-cap PO DAILY 08/06/20 05/07/21 mg-FA 600 mcg-vit K 40 mcg capsule omeprazole 40 mg-sodium 1 cap PO DAILY 08/06/20 05/07/21 bicarbonate 1.1 gram capsule ondansetron 4 mg disintegrating 4 mg PO Q8H 08/06/20 05/07/21 tablet pantoprazole 40 mg tablet,delayed 40 mg PO DAILY 08/06/20 05/07/21 release sod picosulf 10 mg-magnes 3.5 160 ml PO DAILY 08/06/20 05/07/21 gram-citric 12 gram/160 mL oral solution mecobalamin (vitamin B12) 1,000 1,000 mcg PO DAILY 10/21/20 05/07/21 mcg chewable tablet buspirone 15 mg tablet 15 mg PO BID 03/02/21 05/07/21 vitamin E (dl, acetate) 45 mg (100 100 unit PO BEDTIME 03/02/21 05/07/21 unit) capsule blood-glucose meter #1 ea 03/03/21 05/07/21 ergocalciferol (vitamin D2) 1,250 1,250 mcg PO 2XW 03/03/21 05/07/21 mcg (50,000 unit) capsule glucose 4 gram chewable tablet 4 g PO DIRECTED 03/03/21 05/07/21 lancets 33 gauge #100 ea 03/03/21 05/07/21 montelukast 10 mg tablet 10 mg PO QPM 03/03/21 05/07/21 thiamine HCl (vitamin B1) 50 mg 50 mg PO QPM 03/03/21 05/07/21 tablet oxcarbazepine 600 mg tablet 600 mg PO BID 05/07/21 05/07/21 Previous Rx's Medication Instructions Recorded linaclotide 290 mcg capsule 290 mcg PO QAM #30 cap 09/11/20 alcohol swabs 1 pad TOPICAL DIRECTED #100 pad 10/06/20 ibuprofen 600 mg PO Q6H PRN #20 tab 01/09/21 gabapentin 400 mg capsule 400 mg PO TID #90 cap 02/16/21 tizanidine 4 mg tablet 4 mg PO TID PRN #90 tab 03/02/21 acarbose 25 mg tablet 25 mg PO TID 30 Days #90 tab 03/04/21 bisacodyl 5 mg tablet,delayed 10 mg PO ONCE 1 Days #2 tab 03/18/21 release polyethylene glycol 3350 17 238 g PO ONCE #238 g 03/18/21 gram/dose oral powder folic acid 1 mg tablet 1 mg PO QAM #30 tab 04/13/21 methotrexate (PF) 25 mg/0.5 mL 25 mg SUBCUT QWEEK #2 ml 04/21/21 subcutaneous auto-injector dexamethasone 1 mg tablet 1 mg PO DAILY 1 Days #1 tab 04/26/21 fluticasone furoate 200 1 inh INHALATION DAILY 30 Days #1 05/04/21 mcg-vilanterol 25 mcg/dose ea inhalation powder hydroxychloroquine 200 mg tablet 400 mg PO QAM #180 tab 05/14/21 dicyclomine 10 mg capsule 10 mg PO .prn 30 Days #30 cap 05/31/21 Allergies Allergy/AdvReac Type Severity Reaction Status Date / Time latex [LATEX] Allergy Intermediate RASH Verified 06/01/21 12:07 ENVIROMENTAL Allergy Intermediate HAYFEVER Uncoded 06/01/21 12:07 Food Allergy Formula Allergy Unknown Anaphylaxis Uncoded 06/01/21 12:07 Onions Allergy Unknown Anaphylaxis Uncoded 06/01/21 12:07 Pt states no medication Allergy Unknown Anaphylaxis Uncoded 06/01/21 12:07 allerg seasonal allergies Allergy Unknown Anaphylaxis Uncoded 06/01/21 12:07 shellfish Allergy Unknown Anaphylaxis Uncoded 06/01/21 12:07 Review of Systems Review of Systems: Yes all other systems are reviewed and are negative Constitutional: Constitutional: Reports no additional constitutional complaints, Denies body ache(s), Denies chills, Denies fever(s), Denies headache(s) and Reports weakness Eyes: Eyes: Reports no additional eye complaints and Denies change in vision ENT: Reports system reviewed and no additional complaints, except as documented, Reports dizziness, Denies headache(s), Denies nasal congestion, Denies nasal discharge and Denies neck pain Cardiovascular: Cardiovascular: Reports no additional cardiovascular complaints, Reports chest pain, Denies leg edema and Denies dyspnea Respiratory: Respiratory: Reports no additional respiratory complaints, Denies cough and Denies dyspnea Gastrointestinal: Gastrointestinal: Reports no additional gastrointestinal complaints, Denies abdominal pain, Denies diarrhea, Denies nausea and Denies vomiting Genitourinary: Genitourinary: Reports no additional female genitourinary complaints and Denies urinary incontinence Musculoskeletal: Musculoskeletal: Reports no additional musculoskeletal complaints, Denies back pain, Denies arthralgias, Denies joint swelling, Denies neck pain, Denies numbness and Denies tingling Integumentary/Breasts: Skin/Breast: Reports system reviewed and no additional complaints, except as docu and Denies rash Neurologic: Reports system reviewed and no additional complaints, except as documented, Denies Abnormal speech present, Reports dizziness, Denies headache(s), Denies numbness, Denies tingling and Reports weakness PMFSH Past Medical History Attestation statement: The following information was validated with the patient. Source: old records reviewed and nursing notes reviewed Medical History Anemia Arthritis Asthma Carpal tunnel syndrome on both sides Depression Elevated cortisol level Fibromyalgia Hypertension Hypoglycemia Kidney calculi Seropositive rheumatoid arthritis Surgical History H/O abdominoplasty H/O section H/O colonoscopy H/O esophagogastroduodenoscopy H/O gastric bypass H/O hemorrhoidectomy H/O tubal ligation History of bilateral breast reduction surgery History of knee surgery Family History Family History Father Diabetes HTN (hypertension) Cancer Heart disease Mother Cancer Diabetes HTN (hypertension) Social History Social History Household Members: Children Alcohol intake: current Alcohol intake frequency: does not drink Patient Tobacco Use Status: Never used Tobacco Substance Use Type: Marijuana Physical Exam Vital Signs: Vital Signs: Last Vital Signs Temp 98.8 F 06/01/21 14:52 Pulse 59 06/01/21 14:52 Resp 14 06/01/21 14:52 BP 118/70 06/01/21 14:52 Pulse Ox 100 06/01/21 14:52 Body Mass Index 31.5 Const: General: cooperative, healthy appearing, comfortable and no acute distress Orientation/consciousness: patient oriented x3 Limitations: no limitations HENMT: Head: Yes normal to inspection Ears: hearing grossly normal bilaterally General nose exam: Normal external nose present Face and sinus: Yes normal facial exam Mouth: Normal oral and palatal mucosa present Throat: Yes posterior oropharynx normal Eyes: General: appearance normal, both eyes and all related structures Pupils: Equal, round and reactive pupils present Neck: Neck: Yes normal visual inspection Chest: Chest palpation & inspection: normal inspection of the chest Resp: Effort & Inspection: normal respiratory effort Auscultation: clear to auscultation bilaterally Cardio: Rate: bradycardic (SB) Rhythm: regular rhythm Peripheral pulses: Peripheral pulses 2+ throughout GI: Inspection: Yes normal to inspection Palpation (GI): Soft to palpation and nontender Auscultation: normal bowel sounds Back/Spine/Pelvis: Thoracic/Lumbar Spine: thoracic and lumbar spine normal to inspection Skin: General skin exam: no rashes or lesions noted Neuro: General: patient oriented x3, no focal motor deficits and normal sensation to monofilament Cranial nerves: Yes CN's II-XII intact bilaterally, Yes Equal, round and reactive pupils present, Yes Bilaterally intact EOM present, Yes Nystagmus not present, Yes Normal facial strength present and Yes Midline tongue present Cognition (Neuro): normal cognition Speech: No Abnormal speech present Gait exam (Neuro): Normal gait present Motor exam (neuro): 5/5 motor strength present throughout Sensory Exam: Normal double simultaneous stimulation for sensation Extrem: General: Yes normal to inspection Course Course Course Narrative: 45-year-old female here with complaints of generalized weakness and feeling lightheaded for the last week worsened with position changes now with chest pressure for 2 days. Seen at [facility] and referred into the emergency department for further evaluation. Patient is not currently complaining of chest pain. Denies any shortness of breath, nausea, vomiting, fevers, chills, cough, leg swelling or pain. No recent travel or sick contact. Of note, the patient is also complaining of chronic left arm pain. She has been followed by her primary care doctor for this and has outpatient physical therapy and it has MRI which is pending. Complaining of continued pain. No new injury or trauma.. On exam the patient is well appearing neuro intact. Vital signs stable. She is noted to have bradycardia with rate of 43-47. Sinus Daniel on EKG. Patient was a previous history of tachycardia but is no longer on any rate control medications for greater than 1 year. On review of the chart the patient is noted to have a heart rate of 40s to 50s on her previous ED visits. Will check labs, EKG, orthostatic vital signs, UA, chest x-ray. [id number]+ortho. Will give 2LNS and re-assess. 1800-patient is feeling improved. Up and ambulatory with a steady gait. Labs, EKG, UA and chest x-ray all unremarkable. Patient tells me she does have continued pain in the left forearm but has a planned follow-up with her primary care doctor and for an outpatient MRI. This has been a chronic problem for her. Reviewed worrisome signs and symptoms of when to return to the emergency department. Comfortable discharge home. MDM - Weakness Medical Records Attestation: I reviewed the patient's medical records. Lab Data Attestation: I reviewed the patient's lab results. Result diagrams: 06/01/21 13:26 06/01/21 13:26 Labs: Lab Results 06/01/21 06/01/21 06/01/21 Range/Units 12:18 13:26 13:26 WBC 4.1 L (4.8-10.8) X10*3/uL RBC 4.18 L (4.20-5.50) X10*6/uL Hgb 12.2 (12.0-16.0) g/dl Hct 37.7 (37-47) % MCV 90.2 (80-98) fL MCH 29.2 (27.0-33.0) pg MCHC 32.4 (31.0-35.0) g/dl RDW 13.3 (11.0-16.0) % Plt Count 196 (160-400) X10*3/uL MPV 11.1 (9.4-12.3) fL Immature Gran % (Auto) 0.2 (0.0-0.4) % Neut % (Auto) 54.0 (45-73) % Lymph % (Auto) 32.8 (20-40) % [place] % (Auto) 9.6 (2-11) % Eos % (Auto) 2.7 (0-4) % Baso % (Auto) 0.7 (0-2) % Lymph # (Auto) 1.3 (1.2-4.9) X10*3/uL [place] # (Auto) 0.4 (0.1-1.2) X10*3/uL Eos # (Auto) 0.1 (0.0-0.4) X10*3/uL Baso # (Auto) 0.0 (0.0-0.2) X10*3/uL Abs Immat Gran (auto) 0.01 (0.00-0.03) X10*3/uL Absolute Neuts (auto) 2.2 (2.0-8.3) X10*3/uL Absolute Nucleated RBC 0.000 (0.0-0.012) X10*3/uL Nucleated RBC % (auto) 0.0 (0.0-0.2) /100WBC PT (9.9-13.0) SEC INR (0.9-1.1) Sodium 142 (135-145) mmol/L Potassium 4.3 (3.3-5.1) mmol/L Chloride 107 (96-108) mmol/L Carbon Dioxide 27 (22-29) mmol/L Anion Gap 12 (12-20) BUN 13 (9-16) mg/dL Creatinine 0.74 (0.5-1.4) mg/dL Estim Creat Clear Calc 94.5 Estimated GFR > 60 POC Glucose 104 (60-115) mg/dL Random Glucose 94 (60-115) mg/dL Calcium 9.3 (8.4-10.2) mg/dL Magnesium 1.9 (1.6-2.6) mg/dL Total Bilirubin (0.0-1.0) mg/dL Direct Bilirubin (0.0-0.5) mg/dL AST (5-31) U/L ALT (0-31) U/L Alkaline Phosphatase (39-117) U/L Total Creatine Kinase (26-140) U/L Troponin I High Sens (<3.5-17.0) ng/L Total Protein (6.5-8.0) g/dL Albumin (3.5-5.0) g/dL COVID-19 ([facility]) (Negative) COVID-19 Clin Com 06/01/21 06/01/21 06/01/21 Range/Units 13:26 13:49 13:49 WBC (4.8-10.8) X10*3/uL RBC (4.20-5.50) X10*6/uL Hgb (12.0-16.0) g/dl Hct (37-47) % MCV (80-98) fL MCH (27.0-33.0) pg MCHC (31.0-35.0) g/dl RDW (11.0-16.0) % Plt Count (160-400) X10*3/uL MPV (9.4-12.3) fL Immature Gran % (Auto) (0.0-0.4) % Neut % (Auto) (45-73) % Lymph % (Auto) (20-40) % [place] % (Auto) (2-11) % Eos % (Auto) (0-4) % Baso % (Auto) (0-2) % Lymph # (Auto) (1.2-4.9) X10*3/uL [place] # (Auto) (0.1-1.2) X10*3/uL Eos # (Auto) (0.0-0.4) X10*3/uL Baso # (Auto) (0.0-0.2) X10*3/uL Abs Immat Gran (auto) (0.00-0.03) X10*3/uL Absolute Neuts (auto) (2.0-8.3) X10*3/uL Absolute Nucleated RBC (0.0-0.012) X10*3/uL Nucleated RBC % (auto) (0.0-0.2) /100WBC PT (9.9-13.0) SEC INR (0.9-1.1) Sodium (135-145) mmol/L Potassium (3.3-5.1) mmol/L Chloride (96-108) mmol/L Carbon Dioxide (22-29) mmol/L Anion Gap (12-20) BUN (9-16) mg/dL Creatinine (0.5-1.4) mg/dL Estim Creat Clear Calc Estimated GFR POC Glucose (60-115) mg/dL Random Glucose (60-115) mg/dL Calcium (8.4-10.2) mg/dL Magnesium (1.6-2.6) mg/dL Total Bilirubin 0.2 (0.0-1.0) mg/dL Direct Bilirubin < 0.2 (0.0-0.5) mg/dL AST 24 (5-31) U/L ALT 10 (0-31) U/L Alkaline Phosphatase 68 (39-117) U/L Total Creatine Kinase 53 (26-140) U/L Troponin I High Sens 3.6 (<3.5-17.0) ng/L Total Protein 6.8 (6.5-8.0) g/dL Albumin 3.9 (3.5-5.0) g/dL COVID-19 ([facility]) Negative (Negative) COVID-19 Clin Com See Note 06/01/21 Range/Units 13:49 WBC (4.8-10.8) X10*3/uL RBC (4.20-5.50) X10*6/uL Hgb (12.0-16.0) g/dl Hct (37-47) % MCV (80-98) fL MCH (27.0-33.0) pg MCHC (31.0-35.0) g/dl RDW (11.0-16.0) % Plt Count (160-400) X10*3/uL MPV (9.4-12.3) fL Immature Gran % (Auto) (0.0-0.4) % Neut % (Auto) (45-73) % Lymph % (Auto) (20-40) % [place] % (Auto) (2-11) % Eos % (Auto) (0-4) % Baso % (Auto) (0-2) % Lymph # (Auto) (1.2-4.9) X10*3/uL [place] # (Auto) (0.1-1.2) X10*3/uL Eos # (Auto) (0.0-0.4) X10*3/uL Baso # (Auto) (0.0-0.2) X10*3/uL Abs Immat Gran (auto) (0.00-0.03) X10*3/uL Absolute Neuts (auto) (2.0-8.3) X10*3/uL Absolute Nucleated RBC (0.0-0.012) X10*3/uL Nucleated RBC % (auto) (0.0-0.2) /100WBC PT 11.8 (9.9-13.0) SEC INR 1.0 (0.9-1.1) Sodium (135-145) mmol/L Potassium (3.3-5.1) mmol/L Chloride (96-108) mmol/L Carbon Dioxide (22-29) mmol/L Anion Gap (12-20) BUN (9-16) mg/dL Creatinine (0.5-1.4) mg/dL Estim Creat Clear Calc Estimated GFR POC Glucose (60-115) mg/dL Random Glucose (60-115) mg/dL Calcium (8.4-10.2) mg/dL Magnesium (1.6-2.6) mg/dL Total Bilirubin (0.0-1.0) mg/dL Direct Bilirubin (0.0-0.5) mg/dL AST (5-31) U/L ALT (0-31) U/L Alkaline Phosphatase (39-117) U/L Total Creatine Kinase (26-140) U/L Troponin I High Sens (<3.5-17.0) ng/L Total Protein (6.5-8.0) g/dL Albumin (3.5-5.0) g/dL COVID-19 ([facility]) (Negative) COVID-19 Clin Com Imaging Data Chest x-ray: Attestation: I personally reviewed and interpreted this imaging study as follows: Radiologist's impression: EXAMINATION: XR CHEST CLINICAL INFORMATION: Chest pain COMPARISON: Chest radiographs 08/08/2019, 02/20/2019 TECHNIQUE: 2 views of the chest were obtained. FINDINGS: Lungs are clear. There is no pneumothorax or pneumomediastinum. No pleural reaction, infiltrate, or effusion. The costophrenic sulci are clear. The heart is normal in size. The hilar and mediastinal contours are unremarkable. No visible acute bony abnormality. XR/XR chest 2V IMPRESSION: Unremarkable examination. ECG Data Attestation: I personally reviewed and interpreted this ECG as follows: ECG interpretation date: 06/01/21 ECG interpretation time: 12:27 Interpretation: Sinus bradycardia with rate of 43, normal SC, normal QRS, normal QT Discharge Plan Discharge Clinical Impression: Orthostasis, Dehydration Patient Disposition: Home, Self-Care Instructions: Dehydration (ED) Additional Instructions: Increase fluids rest Change positions slowly Follow-up with your primary care doctor in regards to your chronic arm pain Prescriptions: No Action linaclotide [Linzess] 290 mcg capsule 290 mcg PO QAM Qty: 30 RF: 3 alcohol swabs [Alcohol Prep Pads] Pads, Medicated 1 pad topical DIRECTED Qty: 100 RF: 5 gabapentin 400 mg capsule 400 mg PO TID Qty: 90 RF: 3 tizanidine 4 mg tablet 4 mg PO TID PRN (Reason: for muscle spasm) Qty: 90 RF: 5 acarbose 25 mg tablet 25 mg PO TID 30 Days Qty: 90 RF: 11 polyethylene glycol 3350 [Miralax] 17 gram/dose powder 238 g PO ONCE Qty: 238 RF: 0 bisacodyl [Dulcolax (bisacodyl)] 5 mg tablet,delayed release (DR/EC) 10 mg PO ONCE 1 Days Qty: 2 RF: 0 folic acid 1 mg tablet 1 mg PO QAM Qty: 30 RF: 5 Rasuvo (PF) 25 mg/0.5 mL auto-injector 25 mg subcut QWEEK Qty: 2 RF: 3 hydroxychloroquine 200 mg tablet 400 mg PO QAM Qty: 180 RF: 1 dicyclomine 10 mg capsule 10 mg PO .prn 30 Days Qty: 30 RF: 1 ibuprofen 600 mg tablet 600 mg PO Q6H PRN (Reason: pain) Qty: 20 RF: 0 Clenpiq 10 mg-3.5 gram -12 gram/160 mL solution 160 ml PO DAILY RF: 0 ondansetron 4 mg tablet,disintegrating 4 mg PO Q8H RF: 0 omeprazole-sodium bicarbonate [Zegerid] 40-1.1 mg-gram capsule 1 cap PO DAILY RF: 0 pantoprazole 40 mg tablet,delayed release (DR/EC) 40 mg PO DAILY RF: 0 Multi For Her 18 mg iron-600 mcg-40 mcg capsule 1 tab-cap PO DAILY RF: 0 fluticasone propionate 50 mcg/actuation spray,suspension 1 spray intranasal DAILY RF: 0 bupropion HCl 100 mg tablet 100 mg PO TID RF: 0 buprenorphine-naloxone [Suboxone] 8-2 mg film 2 film sublingual DAILY RF: 0 albuterol sulfate 90 mcg/actuation HFA aerosol inhaler 2 puff inhalation Q4-6H PRNRF: 0 clonazepam 1 mg tablet 1 mg PO BID RF: 0 vitamin E (dl, acetate) 100 unit capsule 100 unit PO BEDTIME RF: 0 buspirone 15 mg tablet 15 mg PO BID RF: 0 oxcarbazepine 600 mg tablet 600 mg PO BID RF: 0 dexamethasone 1 mg tablet 1 mg PO DAILY 1 Days Qty: 1 RF: 0 mecobalamin (vitamin B12) 1,000 mcg tablet,chewable 1,000 mcg PO DAILY RF: 0 (DME) lancets 33 gauge misc See Rx Instructions ea Not Applicable BID Qty: 100 RF: 0 thiamine HCl (vitamin B1) 50 mg tablet 50 mg PO QPM RF: 0 ergocalciferol (vitamin D2) 1,250 mcg (50,000 unit) capsule 1,250 mcg PO 2XW RF: 0 montelukast 10 mg tablet 10 mg PO QPM RF: 0 glucose 4 gram tablet,chewable 4 g PO DIRECTED RF: 0 (DME) blood-glucose meter Kit See Rx Instructions ea Not Applicable BID Qty: 1 RF: 0 Breo Ellipta 200-25 mcg/dose blister with device 1 inh inhalation DAILY 30 Days Qty: 1 RF: 6 Interventions: ED Discharge Assessment Last Done: 06/01/21 20:25 Discharge Date/Time: 06/01/21 20:26
[2021-06-01 13:32] LABS: MANUAL DIFF FLAG NO
[2021-06-01 13:33] LABS: Basophils Percent Auto 0.7 % (0-2); Eosinophils Absolute Auto 0.1 X10*3/uL (0.0-0.4); Eosinophils Percent Auto 2.7 % (0-4); Hematocrit 37.7 % (37-47); Hemoglobin 12.2 g/dl (12.0-16.0); Imm Gran Abs Auto 0.01 X10*3/uL (0.00-0.03); Imm Gran Pct Auto 0.2 % (0.0-0.4); Lymphocytes Absolute Auto 1.3 X10*3/uL (1.2-4.9); Lymphocytes Percent Auto 32.8 % (20-40); Mean Corpuscular HGB Conc 32.4 g/dl (31.0-35.0); Mean Corpuscular Hemoglobin 29.2 pg (27.0-33.0); Mean Corpuscular Volume 90.2 fL (80-98); Mean Platelet Volume 11.1 fL (9.4-12.3); Monocytes Absolute Auto 0.4 X10*3/uL (0.1-1.2); Monocytes Percent Auto 9.6 % (2-11); Neutrophils Absolute Auto 2.2 X10*3/uL (2.0-8.3); Platelet Count 196 X10*3/uL (160-400); Red Blood Count 4.18 X10*6/uL (4.20-5.50); Red Cell Distribution Width 13.3 % (11.0-16.0); White Blood Count 4.1 X10*3/uL (4.8-10.8)
[2021-06-01 13:59] LABS: Anion Gap 12 (12-20); Blood Urea Nitrogen 13 mg/dL (9-16); Calcium 9.3 mg/dL (8.4-10.2); Carbon Dioxide 27 mmol/L (22-29); Chloride 107 mmol/L (96-108); Creatinine Clr Calc Pharmacy 94.5; Estimated Glomerular Filt Rate > 60; Glucose Random 94 mg/dL (60-115); Magnesium 1.9 mg/dL (1.6-2.6); Potassium 4.3 mmol/L (3.3-5.1); Sodium 142 mmol/L (135-145)
[2021-06-01 14:02] LABS: Prothrombin Time 11.8 SEC (9.9-13.0)
[2021-06-01] MEDS: Acetaminophen 325 MG TABLET 975 MG PO (14:02)
[2021-06-01 14:03] LABS: Troponin-I High Sensitivity 3.6 ng/L (<3.5-17.0)
[2021-06-01 14:06] VITALS: BP 126/65; PULSE 48
[2021-06-01 14:08] VITALS: BP 133/65; BP 136/79; PULSE 49; PULSE 65
[2021-06-01 14:09] LABS: COVID-19 Test Negative (Negative)
[2021-06-01 14:26] LABS: Alanine Aminotransferase 10 U/L (0-31); Albumin Level 3.9 g/dL (3.5-5.0); Alkaline Phosphatase 68 U/L (39-117); Aspartate Amino Transferase 24 U/L (5-31); Bilirubin Direct < 0.2 mg/dL (0.0-0.5); Bilirubin Total 0.2 mg/dL (0.0-1.0); Total Protein 6.8 g/dL (6.5-8.0)
[2021-06-01] MEDS: 0.9 % Sodium Chloride 2,000 ML 999 ML IV (14:31)
[2021-06-01 14:52] VITALS: BP 118/70; PULSE 59; RESP 14; TEMP 37.1; O2SAT 100
[2021-06-02 21:31] LABS: Lyme Abs Screen <0.90 index
== END 2021-06-01 20:26 | disposition home or self-care (01) ==
PROVIDERS: Nurse Practitioner Family; Emergency Provider Emergency Medicine Emergency Medical Services
DX: I95.1 Orthostatic hypotension (principal); E86.0 Dehydration; R53.1 Weakness; M79.632 Pain in left forearm; Z20.822 Contact with and (suspected) exposure to COVID-19; J45.909 Unspecified asthma, uncomplicated; Z79.899 Other long term (current) drug therapy
CPT/HCPCS: 36415; 71046; 80048; 80076; 82550; 82947; 83735; 84484; 85025; 85610; 86617; 86618; 87635; 93005; 96360; 96361; 99285

== ENCOUNTER 2021-06-07 08:18 | Outpatient (REF) | payer OTHER, SELFPAY ==
--- NOTE | ~2021-06-07 | XR_ITS ---
EXAMINATION: XR FOREARM, LEFT CLINICAL INFORMATION: Pain COMPARISON: None TECHNIQUE: AP and lateral views of the left forearm were obtained. FINDINGS: The bones and soft tissues are normal. No fracture. Imaged portions of the elbow and wrist are unremarkable. XR/XR forearm LT 2V IMPRESSION: Normal left forearm.
== END 2021-06-07 08:19 | disposition home or self-care (01) ==
LOC: HO.XRAY 08:18
PROVIDERS: PCP Internal Medicine; Visit Provider Internal Medicine
DX: M79.632 Pain in left forearm (principal)
CPT/HCPCS: 73090

== ENCOUNTER → 2021-06-08 08:53 | Outpatient (BNVA) | payer OTHER, SELFPAY | PROVIDERS: PCP Internal Medicine; Visit Provider Physician Assistant ==

== ENCOUNTER → 2021-06-09 07:49 | Outpatient (BNVA) | payer OTHER, SELFPAY | PROVIDERS: PCP Internal Medicine; Visit Provider Physician Assistant | DX: L98.7 Excessive and redundant skin and subcutaneous tissue (principal) | CPT/HCPCS: 99212 ==

== ENCOUNTER → 2021-07-05 14:49 | Outpatient (REF) | payer OTHER, SELFPAY ==
--- NOTE | ~2021-07-05 | XR_ITS ---
EXAMINATION: XR ANKLE, RIGHT XR FOOT, RIGHT CLINICAL INFORMATION: Sprain of tibiofibular ligament of right ankle. COMPARISON: None TECHNIQUE: AP and oblique views of the right ankle and right foot were obtained. A lateral view was obtained to include the ankle and foot. FINDINGS: RIGHT ANKLE: There is no acute fracture or malalignment. The ankle mortise is intact. There is mild lateral soft tissue swelling. RIGHT FOOT: There is no acute fracture or malalignment. There is a small plantar calcaneal spur. There are dorsal marginal osteophytes at the talonavicular joint. XR/XR ankle RT min 3V IMPRESSION: Right Ankle: Mild lateral soft tissue swelling. No acute fracture. Right Foot: Small plantar calcaneal spur. Mild osteoarthritis of the talonavicular joint. No acute fracture.
--- NOTE | ~2021-07-05 | XR_ITS ---
EXAMINATION: XR ANKLE, RIGHT XR FOOT, RIGHT CLINICAL INFORMATION: Sprain of tibiofibular ligament of right ankle. COMPARISON: None TECHNIQUE: AP and oblique views of the right ankle and right foot were obtained. A lateral view was obtained to include the ankle and foot. FINDINGS: RIGHT ANKLE: There is no acute fracture or malalignment. The ankle mortise is intact. There is mild lateral soft tissue swelling. RIGHT FOOT: There is no acute fracture or malalignment. There is a small plantar calcaneal spur. There are dorsal marginal osteophytes at the talonavicular joint. XR/XR foot RT min 3V IMPRESSION: Right Ankle: Mild lateral soft tissue swelling. No acute fracture. Right Foot: Small plantar calcaneal spur. Mild osteoarthritis of the talonavicular joint. No acute fracture.
== END ==
LOC: HO.SL 14:49
PROVIDERS: Absent Provider Internal Medicine; PCP Internal Medicine; Visit Provider Internal Medicine Pulmonary Disease
DX: G47.33 Obstructive sleep apnea (adult) (pediatric) (principal); S93.431A Sprain of tibiofibular ligament of right ankle, initial encounter
CPT/HCPCS: 73610; 73630; 95806

== ENCOUNTER → 2021-07-21 08:31 | Outpatient (BNVA) | payer OTHER, SELFPAY | PROVIDERS: PCP Internal Medicine; Referring Provider Internal Medicine; Visit Provider Physician Assistant Surgical | DX: E66.3 Overweight (principal); K21.9 Gastro-esophageal reflux disease without esophagitis; L98.7 Excessive and redundant skin and subcutaneous tissue; Z90.3 Acquired absence of stomach [part of] | CPT/HCPCS: 99212 ==

== ENCOUNTER 2021-07-26 14:50 | Outpatient (REF) | payer OTHER, SELFPAY ==
--- NOTE | ~2021-07-26 | MR_ITS ---
EXAMINATION: MR ELBOW WITHOUT CONTRAST, LEFT CLINICAL INFORMATION: Pain in left forearm, lateral epicondylitis. Patient reports left elbow swelling and pain, limited range of motion, unable to bear weight, no recent injury and no previous surgery. COMPARISON: XR left elbow 01/09/2021. TECHNIQUE: MRI of the elbow was performed using routine sequences on a high-field scanner. FINDINGS: Ulnar collateral ligament: Intact Common flexor tendon: Intact Radial collateral ligament: Intact Common extensor tendon: There is slight swelling and patchy signal abnormality of the proximal common extensor tendon. This includes an interstitial tear at the origin measuring 5 mm craniocaudal and 8 mm AP, involving slightly greater than 50% of the thickness of the tendon. Biceps/triceps tendon: Intact Articular cartilage/bone: Intact Ulnar nerve: Intact Joint fluid/soft tissues: Within normal limits. MR/MR elbow LT wo con IMPRESSION: Proximal common extensor tendinosis with focal interstitial tear at the origin.
== END 2021-07-26 14:51 | disposition home or self-care (01) ==
LOC: HO.MRI 14:50
PROVIDERS: Visit Provider Internal Medicine Pulmonary Disease
DX: M77.10 Lateral epicondylitis, unspecified elbow (principal); M79.632 Pain in left forearm
CPT/HCPCS: 73221

== ENCOUNTER 2021-08-02 | Outpatient (REF) | payer OTHER, SELFPAY | END 2021-08-02 00:01 | disposition home or self-care (01) | LOC: CF | PROVIDERS: Visit Provider Physician Assistant | DX: S93.401A Sprain of unspecified ligament of right ankle, initial encounter (principal); E66.3 Overweight; K21.9 Gastro-esophageal reflux disease without esophagitis; Z90.3 Acquired absence of stomach [part of] | CPT/HCPCS: 99202 ==

== ENCOUNTER → 2021-09-09 13:05 | Outpatient (BNVA) | payer OTHER, SELFPAY | PROVIDERS: PCP Internal Medicine; Referring Provider Internal Medicine; Visit Provider Internal Medicine | DX: I95.9 Hypotension, unspecified (principal); R00.1 Bradycardia, unspecified | CPT/HCPCS: 93005; 99202 ==

== ENCOUNTER → 2021-09-20 08:42 | Outpatient (BNVA) | payer OTHER, SELFPAY | PROVIDERS: PCP Internal Medicine; Visit Provider Physician Assistant Surgical | CPT/HCPCS: Q3014 ==

== ENCOUNTER 2021-09-22 19:42 | Outpatient (REF) | payer OTHER, SELFPAY ==
--- NOTE | ~2021-09-22 | MR_ITS ---
EXAMINATION: MR ANKLE WITHOUT CONTRAST, RIGHT CLINICAL INFORMATION: Lateral right ankle pain. COMPARISON: Right ankle and foot radiographs dated 07/05/2021. TECHNIQUE: Multisequence MR imaging of the right ankle was obtained without contrast on a high-field strength scanner. FINDINGS: BONE AND ARTICULAR CARTILAGE: Small plantar calcaneal spur with mild marrow edema. No additional abnormal marrow signal. No stress reaction or fracture. Intact articular cartilage. No talar osteochondral lesion. ACHILLES TENDON: Mild distal Achilles tendinosis. No measurable tendon defect. OTHER TENDONS: Mild fluid within the posterior tibialis tendon sheath, consistent with mild tenosynovitis. No measurable tendon defect. LIGAMENTS: Attenuation the anterior talofibular ligament, consistent with a remote sprain/partial tear. No acute ligament injury. JOINT FLUID AND SOFT TISSUES: Small tibiotalar joint effusion. No abnormal soft tissue mass or fluid collection. PLANTAR FASCIA: Thickening of the proximal plantar fascia without associated edema, consistent with a remote injury. No measurable defect. SINUS TARSI AND TARSAL TUNNEL: Normal. MR/MR ankle RT wo con IMPRESSION: 1. Small plantar calcaneal spur with mild marrow edema. Thickening of the proximal plantar fascia without associated edema, consistent with a remote injury. No measurable defect. 2. Mild distal Achilles tendinosis without a measurable tendon defect. 3. Posterior tibialis tenosynovitis. No tendon tear. 4. Remote sprain/partial tear of the anterior talofibular ligament. 5. Small tibiotalar joint effusion.
== END 2021-09-22 19:43 | disposition home or self-care (01) ==
LOC: HO.MRI 19:42
PROVIDERS: Visit Provider Physician Assistant
DX: S93.401A Sprain of unspecified ligament of right ankle, initial encounter (principal)
CPT/HCPCS: 73721

== ENCOUNTER → 2021-09-27 09:38 | Outpatient (REF) | payer OTHER, SELFPAY ==
--- NOTE | 2021-09-27 09:43 | HM_ITS ---
Conclusion: 1. Patient was monitored for total period of 3 days 2. Baseline rhythm is normal sinus rhythm with average heart rate of 73 beats per minute 3. No significant pauses noted 4. Seven total runs of supraventricular episodes with longest lasting 16 beats at about 150 beats per minute 5. Total 59 PVCs and 242 PACs accounting for rare ectopy 6. Patient reported events correlated mostly with sinus rhythm MTDD
== END ==
LOC: HO.CARD 09:38
PROVIDERS: PCP Internal Medicine; Visit Provider Internal Medicine
DX: R00.1 Bradycardia, unspecified (principal)
CPT/HCPCS: 93242

== ENCOUNTER → 2021-10-11 11:27 | Outpatient (BNVA) | payer OTHER, SELFPAY | PROVIDERS: PCP Internal Medicine; Visit Provider Physician Assistant | DX: S93.401D Sprain of unspecified ligament of right ankle, subsequent encounter (principal) | CPT/HCPCS: 99212 ==

== ENCOUNTER → 2021-10-14 13:05 | Outpatient (BNVA) | payer OTHER, SELFPAY | PROVIDERS: PCP Internal Medicine; Referring Provider Internal Medicine; Visit Provider Internal Medicine | DX: I95.9 Hypotension, unspecified (principal); R00.1 Bradycardia, unspecified | CPT/HCPCS: 99212 ==

== ENCOUNTER → 2021-12-01 08:01 | Outpatient (BNVA) | payer OTHER, SELFPAY | PROVIDERS: PCP Internal Medicine; Visit Provider Surgery | DX: L03.90 Cellulitis, unspecified (principal) | CPT/HCPCS: Q3014 ==

== ENCOUNTER 2021-12-02 13:58 | Outpatient (REF) | payer OTHER, SELFPAY ==
[2021-12-02 14:22] LABS: MANUAL DIFF FLAG NO
[2021-12-02 14:33] LABS: Basophils Percent Auto 0.4 % (0-2); Eosinophils Absolute Auto 0.1 X10*3/uL (0.0-0.4); Eosinophils Percent Auto 1.1 % (0-4); Hematocrit 37.6 % (37.0-47.0); Hemoglobin 12.2 g/dl (12.0-16.0); Imm Gran Abs Auto 0.01 X10*3/uL (0.00-0.03); Imm Gran Pct Auto 0.2 % (0.0-0.4); Lymphocytes Absolute Auto 1.2 X10*3/uL (1.2-4.9); Lymphocytes Percent Auto 25.7 % (20-40); Mean Corpuscular HGB Conc 32.4 g/dl (31.0-35.0); Mean Corpuscular Hemoglobin 28.5 pg (27.0-33.0); Mean Corpuscular Volume 87.9 fL (80.0-98.0); Mean Platelet Volume 10.2 fL (9.4-12.3); Monocytes Absolute Auto 0.3 X10*3/uL (0.1-1.2); Monocytes Percent Auto 5.5 % (2-11); Neutrophils Percent Auto 67.1 % (45-73); Platelet Count 188 X10*3/uL (160-400); Red Blood Count 4.28 X10*6/uL (4.20-5.50); Red Cell Distribution Width 13.7 % (11.0-16.0); White Blood Count 4.5 X10*3/uL (4.8-10.8)
[2021-12-02 14:58] LABS: Prothrombin Time 11.6 SEC (9.9-13.0)
[2021-12-02 14:59] LABS: Alanine Aminotransferase 8 U/L (0-31); Albumin Level 4.2 g/dL (3.5-5.0); Alkaline Phosphatase 74 U/L (39-117); Anion Gap 10 (12-20); Aspartate Amino Transferase 25 U/L (5-31); Bilirubin Direct < 0.2 mg/dL (0.0-0.5); Bilirubin Total 0.2 mg/dL (0.0-1.0); Blood Urea Nitrogen 13 mg/dL (9-16); Calcium 9.2 mg/dL (8.4-10.2); Carbon Dioxide 28 mmol/L (22-29); Chloride 104 mmol/L (96-108); Cholesterol 143 mg/dL; Estimated Glomerular Filt Rate > 60; Glucose Random 101 mg/dL (60-115); HDL Cholesterol 66 mg/dL; LDL Cholesterol Calculated 66 mg/dl; Potassium 3.6 mmol/L (3.3-5.1); Sodium 138 mmol/L (135-145); Total Protein 7.3 g/dL (6.5-8.0); Triglycerides 59 mg/dL
[2021-12-02 15:00] LABS: Alanine Aminotransferase 7 U/L (0-31); Albumin Level 4.2 g/dL (3.5-5.0); Alkaline Phosphatase 74 U/L (39-117); Anion Gap 10 (12-20); Aspartate Amino Transferase 25 U/L (5-31); Bilirubin Total 0.3 mg/dL (0.0-1.0); Blood Urea Nitrogen 13 mg/dL (9-16); Calcium 9.4 mg/dL (8.4-10.2); Carbon Dioxide 28 mmol/L (22-29); Chloride 104 mmol/L (96-108); Estimated Glomerular Filt Rate > 60; Glucose Random 102 mg/dL (60-115); Partial Thromboplastin Time 38.9 SEC (24.1-38.0); Potassium 3.7 mmol/L (3.3-5.1); Sodium 138 mmol/L (135-145); Total Protein 7.4 g/dL (6.5-8.0)
[2021-12-02 15:21] LABS: Vitamin D 25-OH Total 18.1 ng/mL (>30)
[2021-12-02 18:38] LABS: Estimated Average Glucose 108 mg/dL; Hemoglobin A1c % 5.4 %
== END 2021-12-02 13:59 | disposition home or self-care (01) ==
LOC: HO.LAB 13:58
PROVIDERS: Absent Provider Surgery; PCP Internal Medicine; Visit Provider Internal Medicine
DX: K91.2 Postsurgical malabsorption, not elsewhere classified (principal); Z90.3 Acquired absence of stomach [part of]
CPT/HCPCS: 36415; 80048; 80053; 80061; 80076; 82248; 82306; 83036; 85025; 85610; 85730; 86850; 86900; 86901

== ENCOUNTER → 2021-12-06 10:15 | Outpatient (BNVA) | payer OTHER, SELFPAY | PROVIDERS: PCP Internal Medicine; Referring Provider Internal Medicine; Visit Provider Physician Assistant Surgical | DX: L98.7 Excessive and redundant skin and subcutaneous tissue (principal) | CPT/HCPCS: 99212 ==

== ENCOUNTER 2021-12-09 06:05 | Day surgery (SDC) | payer OTHER, SELFPAY ==
[2021-12-01 08:36] VITALS: BMI 26.7
--- NOTE | 2021-12-05 14:00 | MHC.SHP ---
Pre-Procedural Eval Section A Date of Service: 12/05/21 The patient is an INPATIENT: No The History & Physical has been completed within 30 days and I have reviewed it.: Yes Section B Chief Complaint: excessive and redundant skin Relevant Family History (Specify if Yes): No Relevant Social History: None Present Medications: None Medical History: No relevant PMH History of Previous Operations: Relevant previous surgery/procedure and date(s) (Laparoscopic gastric bypass and revision of gastric bypass) Allergies: Allergies Allergy/AdvReac Type Severity Reaction Status Date / Time latex [LATEX] Allergy Intermediate RASH Verified 12/01/21 11:11 ENVIROMENTAL Allergy Intermediate HAYFEVER Uncoded 12/01/21 11:11 Food Allergy Formula Allergy Unknown Anaphylaxis Uncoded 12/01/21 11:11 Onions Allergy Unknown Anaphylaxis Uncoded 12/01/21 11:11 Pt states no medication Allergy Unknown none Uncoded 12/01/21 11:11 allerg seasonal allergies Allergy Unknown Anaphylaxis Uncoded 12/01/21 11:11 shellfish Allergy Unknown Anaphylaxis Uncoded 12/01/21 11:11 Review of Systems Sugical H&P ROS: Negative: Constitution, Cardiovascular, Respiratory, Neurological, Psychiatric, Hem-Onc, Allergic/Immunologic, Gastrointestinal, Genitourinary, Musculoskeletal, Integumentary, Endocrine and Eyes/Ears/Nose/Throat Exam Surgical H&P Exam: Normal: HEENT, Normal: Heart, Normal: Lungs, Normal: Extremities, Normal: Abdomen, Normal: Skin and Normal: Neurological Plan Diagnosis/Plan: Unchanged I have reviewed the history and physical and performed a pertinent physical examination on my patient. No changes have occurred unless specified.
--- NOTE | 2021-12-08 10:53 | P.CONAN_ITS ---
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) Overweight (BMI 25.0-29.9) (Acute) GERD (gastroesophageal reflux disease) (Acute) Sprain of ankle, right (Acute) Bradycardia (Acute) Hypotension (Acute) Seropositive rheumatoid arthritis (Acute) Elevated cortisol level (Acute) Hypoglycemia (Acute) Fibromyalgia (Acute) Arthritis (Acute) Past Medical History Medical History Anemia Arthritis Asthma Carpal tunnel syndrome on both sides Depression Elevated cortisol level Fibromyalgia History of bipolar disorder History of irregular heartbeat History of opioid abuse History of schizophrenia History of seizures Hypertension Hypoglycemia Kidney calculi Migraine Postoperative nausea and vomiting Seropositive rheumatoid arthritis Family History Family History Father Diabetes HTN (hypertension) Cancer Heart disease Mother Cancer Diabetes HTN (hypertension) Surgical History Surgical History H/O abdominoplasty H/O section H/O colonoscopy H/O esophagogastroduodenoscopy H/O gastric bypass H/O hemorrhoidectomy H/O tubal ligation History of back surgery History of bilateral breast reduction surgery History of blepharoplasty History of endometrial ablation History of knee surgery Social History Social History Household Members: Children Household Members Other:: Daughter Are you a primary attending ambulatory care to a significant other at home: No 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 If so, by whom?: No Are you DNR?: No Advance Directives: No Advance Directives Information Provided: Yes (mailed with pre-op instructions) Advance Directives on File: No Recently lost weight without trying: No Eating poorly because of decreased appetite: No Nutrition Risks: No Nutritional Risk Patient : No Current occupational status: retired Current occupation: [employer] Meds Allergies Allergy/AdvReac Type Severity Reaction Status Date / Time latex [LATEX] Allergy Intermediate RASH Verified 12/09/21 06:40 ENVIROMENTAL Allergy Intermediate HAYFEVER Uncoded 12/01/21 11:11 Food Allergy Allergy Unknown Anaphylaxis Uncoded 12/01/21 11:11 Formula Onions Allergy Unknown Anaphylaxis Uncoded 12/01/21 11:11 Pt states no Allergy Unknown none Uncoded 12/01/21 11:11 medication allerg seasonal allergies Allergy Unknown Anaphylaxis Uncoded 12/01/21 11:11 shellfish Allergy Unknown Anaphylaxis Uncoded 12/01/21 11:11 Home Medications Medication Instructions Recorded Confirmed Last Taken Type albuterol sulfate 2 puff 08/06/20 12/01/21 Unknown History 90 mcg/actuation INHALATION Q4-6H PRN aerosol inhaler buprenorphine 8 2 film 08/06/20 12/01/21 Unknown History mg-naloxone 2 mg SUBLINGUAL DAILY sublingual film (Suboxone) fluticasone 1 spray 08/06/20 12/01/21 Unknown History propionate 50 INTRANASAL DAILY mcg/actuation nasal spray,suspension [id number] 1 tab-cap PO BID 08/06/20 12/01/21 Unknown History n fumarate 18 mg-FA 600 mcg-vit K 40 mcg capsule (Multi For Her) ondansetron 4 mg 4 mg PO Q8H PRN 08/06/20 12/01/21 Unknown History disintegrating tablet pantoprazole 40 40 mg PO DAILY 08/06/20 12/01/21 Unknown History mg tablet,delayed release mecobalamin 1,000 mcg PO 10/21/20 12/01/21 Unknown History (vitamin B12) DAILY 1,000 mcg chewable tablet buspirone 15 mg 15 mg PO BID 03/02/21 12/01/21 Unknown History tablet vitamin E (dl, 100 unit PO 03/02/21 12/01/21 Unknown History acetate) 45 mg BEDTIME (100 unit) capsule blood-glucose #1 ea 03/03/21 12/01/21 Unknown History meter ergocalciferol 1,250 mcg PO 2XW 03/03/21 12/01/21 Unknown History (vitamin D2) 1,250 mcg (50,000 unit) capsule glucose 4 gram 4 g PO 03/03/21 12/01/21 Unknown History chewable tablet DIRECTED lancets 33 gauge #100 ea 03/03/21 12/01/21 Unknown History montelukast 10 mg 10 mg PO QPM 03/03/21 12/01/21 Unknown History tablet thiamine HCl 50 mg PO QPM 03/03/21 12/01/21 Unknown History (vitamin B1) 50 mg tablet oxcarbazepine 600 600 mg PO BID 05/07/21 12/01/21 Unknown History mg tablet acarbose 25 mg 25 mg PO TIDAC 12/01/21 12/01/21 Unknown History tablet albuterol sulfate 1 amp INHALATION 12/01/21 12/01/21 Unknown History Q6H PRN ascorbic acid 1 tab PO TID 12/01/21 12/01/21 Unknown History (vitamin C) 250 mg tablet (Vitamin C) clonazepam 1 mg 1 mg PO BID 12/01/21 12/01/21 Unknown History tablet epinephrine 0.3 IM DIRECTED 12/01/21 12/01/21 Unknown History mg/0.3 mL injection, auto-injector Exam Exam Date and Time: December 08, 2021 1053 Height,Weight and Vital Signs: Height 5 ft 4 in Weight 70.76 kg Pertinent Lab Results Pertinent Lab Results: Laboratory Tests 12/02/21 14:15 Blood Type O Positive Antibody Screen NEGATIVE Laboratory Tests 12/02/21 12/02/21 14:15 14:15 WBC 4.5 L Hgb 12.2 Hct 37.6 Plt Count 188 Sodium 138 Potassium 3.7 Chloride 104 Carbon Dioxide 28 BUN 13 Creatinine 0.80 Narrative Narrative: EKG 09/2021 sinus rhythm at 70/Min; incomplete right bundle-branch block pattern 3 Day Holter 09/2021 1. Patient was monitored for total period of 3 days 2. Baseline rhythm is normal sinus rhythm with average heart rate of 73 beats per minute 3. No significant pauses noted 4. Seven total runs of supraventricular episodes with longest lasting 16 beats at about 150 beats per minute 5. Total 59 PVCs and 242 PACs accounting for rare ectopy 6. Patient reported events correlated mostly with sinus rhythm Per 09/2021 cardiol visit echocardiogram from 2016 had shown LVEF of 60-65%, mild LVH, but was otherwise grossly unremarkable.? Last myocardial perfusion imaging studies from 2018 and that shows normal perfusion. Assessment and Plan Assessment Anesthesia Assessment: Chart Reviewed Documented by User: Jimmy Butt 12/09/21 16:27 [facility] Past Medical History Medical History Anemia Arthritis Asthma Carpal tunnel syndrome on both sides Depression Elevated cortisol level Fibromyalgia History of bipolar disorder History of irregular heartbeat History of opioid abuse History of schizophrenia History of seizures Hypertension Hypoglycemia Kidney calculi Migraine Postoperative nausea and vomiting Seropositive rheumatoid arthritis Family History Family History Father Diabetes HTN (hypertension) Cancer Heart disease Mother Cancer Diabetes HTN (hypertension) Family history of problems with anesthesia: No Surgical History Surgical History H/O abdominoplasty H/O section H/O colonoscopy H/O esophagogastroduodenoscopy H/O gastric bypass H/O hemorrhoidectomy H/O tubal ligation History of back surgery History of bilateral breast reduction surgery History of blepharoplasty History of endometrial ablation History of knee surgery History of Problems with Anesthesia: No Social History Social History Household Members: Children Household Members Other:: Daughter Are you a primary attending ambulatory care to a significant other at home: No 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 If so, by whom?: No Are you DNR?: No Advance Directives: No Advance Directives Information Provided: Yes (mailed with pre-op instructions) Advance Directives on File: No Recently lost weight without trying: No Eating poorly because of decreased appetite: No Nutrition Risks: No Nutritional Risk Patient : No Current occupational status: retired Current occupation: [employer] Meds Allergies Allergy/AdvReac Type Severity Reaction Status Date / Time latex [LATEX] Allergy Intermediate RASH Verified 12/09/21 06:40 ENVIROMENTAL Allergy Intermediate HAYFEVER Uncoded 12/01/21 11:11 Food Allergy Allergy Unknown Anaphylaxis Uncoded 12/01/21 11:11 Formula Onions Allergy Unknown Anaphylaxis Uncoded 12/01/21 11:11 Pt states no Allergy Unknown none Uncoded 12/01/21 11:11 medication allerg seasonal allergies Allergy Unknown Anaphylaxis Uncoded 12/01/21 11:11 shellfish Allergy Unknown Anaphylaxis Uncoded 12/01/21 11:11 Home Medications Medication Instructions Recorded Confirmed Last Taken Type albuterol sulfate 2 puff 08/06/20 12/01/21 Unknown History 90 mcg/actuation INHALATION Q4-6H PRN aerosol inhaler buprenorphine 8 2 film 08/06/20 12/01/21 Unknown History mg-naloxone 2 mg SUBLINGUAL DAILY sublingual film (Suboxone) fluticasone 1 spray 08/06/20 12/01/21 Unknown History propionate 50 INTRANASAL DAILY mcg/actuation nasal spray,suspension [id number] 1 tab-cap PO BID 08/06/20 12/01/21 Unknown History n fumarate 18 mg-FA 600 mcg-vit K 40 mcg capsule (Multi For Her) ondansetron 4 mg 4 mg PO Q8H PRN 08/06/20 12/01/21 Unknown History disintegrating tablet pantoprazole 40 40 mg PO DAILY 08/06/20 12/01/21 Unknown History mg tablet,delayed release mecobalamin 1,000 mcg PO 10/21/20 12/01/21 Unknown History (vitamin B12) DAILY 1,000 mcg chewable tablet buspirone 15 mg 15 mg PO BID 03/02/21 12/01/21 Unknown History tablet vitamin E (dl, 100 unit PO 03/02/21 12/01/21 Unknown History acetate) 45 mg BEDTIME (100 unit) capsule blood-glucose #1 ea 03/03/21 12/01/21 Unknown History meter ergocalciferol 1,250 mcg PO 2XW 03/03/21 12/01/21 Unknown History (vitamin D2) 1,250 mcg (50,000 unit) capsule glucose 4 gram 4 g PO 03/03/21 12/01/21 Unknown History chewable tablet DIRECTED lancets 33 gauge #100 ea 03/03/21 12/01/21 Unknown History montelukast 10 mg 10 mg PO QPM 03/03/21 12/01/21 Unknown History tablet thiamine HCl 50 mg PO QPM 03/03/21 12/01/21 Unknown History (vitamin B1) 50 mg tablet oxcarbazepine 600 600 mg PO BID 05/07/21 12/01/21 Unknown History mg tablet acarbose 25 mg 25 mg PO TIDAC 12/01/21 12/01/21 Unknown History tablet albuterol sulfate 1 amp INHALATION 12/01/21 12/01/21 Unknown History Q6H PRN ascorbic acid 1 tab PO TID 12/01/21 12/01/21 Unknown History (vitamin C) 250 mg tablet (Vitamin C) clonazepam 1 mg 1 mg PO BID 12/01/21 12/01/21 Unknown History tablet epinephrine 0.3 IM DIRECTED 12/01/21 12/01/21 Unknown History mg/0.3 mL injection, auto-injector Exam Airway Mallampati Class: III Neck ROM: Full Denture: Upper and Lower Loose/Missing/Broken Teeth: Yes Heart: rrr Lungs: bl breath sounds Assessment and Plan Final Anesthetic Review Family History of Problems with Anesthesia: No History of Problems with Anesthesia: No NPO: Yes ASA Class: III Final Preanesthetic Review: Meds/Allgs Chart Reviewed, Consent Obtained/Reviewed and Anes Risks/Benef Reviewed Patient Risk: High Procedure Risk: Intermediate Anesthetic Plan Anesthetic Plan: GA Disposition: Standard PACU
--- NOTE | 2021-12-08 10:53 | HO.ANESPROP2 ---
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) Overweight (BMI 25.0-29.9) (Acute) GERD (gastroesophageal reflux disease) (Acute) Sprain of ankle, right (Acute) Bradycardia (Acute) Hypotension (Acute) Seropositive rheumatoid arthritis (Acute) Elevated cortisol level (Acute) Hypoglycemia (Acute) Fibromyalgia (Acute) Arthritis (Acute) Past Medical History Medical History Anemia Arthritis Asthma Carpal tunnel syndrome on both sides Depression Elevated cortisol level Fibromyalgia History of bipolar disorder History of irregular heartbeat History of opioid abuse History of schizophrenia History of seizures Hypertension Hypoglycemia Kidney calculi Migraine Postoperative nausea and vomiting Seropositive rheumatoid arthritis Family History Family History Father Diabetes HTN (hypertension) Cancer Heart disease Mother Cancer Diabetes HTN (hypertension) Surgical History Surgical History H/O abdominoplasty H/O section H/O colonoscopy H/O esophagogastroduodenoscopy H/O gastric bypass H/O hemorrhoidectomy H/O tubal ligation History of back surgery History of bilateral breast reduction surgery History of blepharoplasty History of endometrial ablation History of knee surgery Social History Social History Household Members: Children Household Members Other:: Daughter Are you a primary primary care provider to a significant other at home: No Do you presently have visiting nurse or other home services: Yes (hand lens polisher) Alcohol intake: current Alcohol intake frequency: does not drink Patient Tobacco Use Status: Never used Tobacco Use of substances other than those prescribed or required for medical reasons: Yes Substance Use Type: Marijuana Substance Use Frequency: Daily Have you been hit, kicked, punched, or otherwise hurt by someone within the past year? If so, by whom?: No Are you DNR?: No Advance Directives: No Advance Directives Information Provided: Yes (mailed with pre-op instructions) Advance Directives on File: No Recently lost weight without trying: No Eating poorly because of decreased appetite: No Nutrition Risks: No Nutritional Risk Patient : No Current occupational status: retired Current occupation: [employer] Meds Allergies Allergy/AdvReac Type Severity Reaction Status Date / Time latex [LATEX] Allergy Intermediate RASH Verified 12/09/21 06:40 ENVIROMENTAL Allergy Intermediate HAYFEVER Uncoded 12/01/21 11:11 Food Allergy Formula Allergy Unknown Anaphylaxis Uncoded 12/01/21 11:11 Onions Allergy Unknown Anaphylaxis Uncoded 12/01/21 11:11 Pt states no medication Allergy Unknown none Uncoded 12/01/21 11:11 allerg seasonal allergies Allergy Unknown Anaphylaxis Uncoded 12/01/21 11:11 shellfish Allergy Unknown Anaphylaxis Uncoded 12/01/21 11:11 Home Medications Medication Instructions Recorded Confirmed Last Taken Type albuterol sulfate 90 mcg/actuation 2 puff INHALATION Q4-6H PRN 08/06/20 12/01/21 Unknown History aerosol inhaler buprenorphine 8 mg-naloxone 2 mg 2 film SUBLINGUAL DAILY 08/06/20 12/01/21 Unknown History sublingual film (Suboxone) fluticasone propionate 50 1 spray INTRANASAL DAILY 08/06/20 12/01/21 Unknown History mcg/actuation nasal spray,suspension [id number] fumarate 18 1 tab-cap PO BID 08/06/20 12/01/21 Unknown History mg-FA 600 mcg-vit K 40 mcg capsule (Multi For Her) ondansetron 4 mg disintegrating 4 mg PO Q8H PRN 08/06/20 12/01/21 Unknown History tablet pantoprazole 40 mg tablet,delayed 40 mg PO DAILY 08/06/20 12/01/21 Unknown History release mecobalamin (vitamin B12) 1,000 1,000 mcg PO DAILY 10/21/20 12/01/21 Unknown History mcg chewable tablet buspirone 15 mg tablet 15 mg PO BID 03/02/21 12/01/21 Unknown History vitamin E (dl, acetate) 45 mg (100 100 unit PO BEDTIME 03/02/21 12/01/21 Unknown History unit) capsule blood-glucose meter #1 ea 03/03/21 12/01/21 Unknown History ergocalciferol (vitamin D2) 1,250 1,250 mcg PO 2XW 03/03/21 12/01/21 Unknown History mcg (50,000 unit) capsule glucose 4 gram chewable tablet 4 g PO DIRECTED 03/03/21 12/01/21 Unknown History lancets 33 gauge #100 ea 03/03/21 12/01/21 Unknown History montelukast 10 mg tablet 10 mg PO QPM 03/03/21 12/01/21 Unknown History thiamine HCl (vitamin B1) 50 mg 50 mg PO QPM 03/03/21 12/01/21 Unknown History tablet oxcarbazepine 600 mg tablet 600 mg PO BID 05/07/21 12/01/21 Unknown History acarbose 25 mg tablet 25 mg PO TIDAC 12/01/21 12/01/21 Unknown History albuterol sulfate 1 amp INHALATION Q6H PRN 12/01/21 12/01/21 Unknown History ascorbic acid (vitamin C) 250 mg 1 tab PO TID 12/01/21 12/01/21 Unknown History tablet (Vitamin C) clonazepam 1 mg tablet 1 mg PO BID 12/01/21 12/01/21 Unknown History epinephrine 0.3 mg/0.3 mL IM DIRECTED 12/01/21 12/01/21 Unknown History injection, auto-injector Exam Exam Date and Time: December 08, 2021 1053 Height,Weight and Vital Signs: Height 5 ft 4 in Weight 70.76 kg Pertinent Lab Results Pertinent Lab Results: Laboratory Tests 12/02/21 14:15 Blood Type O Positive Antibody Screen NEGATIVE Laboratory Tests 12/02/21 12/02/21 14:15 14:15 WBC 4.5 L Hgb 12.2 Hct 37.6 Plt Count 188 Sodium 138 Potassium 3.7 Chloride 104 Carbon Dioxide 28 BUN 13 Creatinine 0.80 Narrative Narrative: EKG 09/2021 sinus rhythm at 70/Min; incomplete right bundle-branch block pattern 3 Day Holter 09/2021 1. Patient was monitored for total period of 3 days 2. Baseline rhythm is normal sinus rhythm with average heart rate of 73 beats per minute 3. No significant pauses noted 4. Seven total runs of supraventricular episodes with longest lasting 16 beats at about 150 beats per minute 5. Total 59 PVCs and 242 PACs accounting for rare ectopy 6. Patient reported events correlated mostly with sinus rhythm Per 09/2021 cardiol visit echocardiogram from 2016 had shown LVEF of 60-65%, mild LVH, but was otherwise grossly unremarkable.? Last myocardial perfusion imaging studies from 2018 and that shows normal perfusion. Assessment and Plan Assessment Anesthesia Assessment: Chart Reviewed Documented by User: Jimmy Butt 12/09/21 16:27 [facility] Past Medical History Medical History Anemia Arthritis Asthma Carpal tunnel syndrome on both sides Depression Elevated cortisol level Fibromyalgia History of bipolar disorder History of irregular heartbeat History of opioid abuse History of schizophrenia History of seizures Hypertension Hypoglycemia Kidney calculi Migraine Postoperative nausea and vomiting Seropositive rheumatoid arthritis Family History Family History Father Diabetes HTN (hypertension) Cancer Heart disease Mother Cancer Diabetes HTN (hypertension) Family history of problems with anesthesia: No Surgical History Surgical History H/O abdominoplasty H/O section H/O colonoscopy H/O esophagogastroduodenoscopy H/O gastric bypass H/O hemorrhoidectomy H/O tubal ligation History of back surgery History of bilateral breast reduction surgery History of blepharoplasty History of endometrial ablation History of knee surgery History of Problems with Anesthesia: No Social History Social History Household Members: Children Household Members Other:: Daughter Are you a primary primary care provider to a significant other at home: No Do you presently have visiting nurse or other home services: Yes (hand lens polisher) Alcohol intake: current Alcohol intake frequency: does not drink Patient Tobacco Use Status: Never used Tobacco Use of substances other than those prescribed or required for medical reasons: Yes Substance Use Type: Marijuana Substance Use Frequency: Daily Have you been hit, kicked, punched, or otherwise hurt by someone within the past year? If so, by whom?: No Are you DNR?: No Advance Directives: No Advance Directives Information Provided: Yes (mailed with pre-op instructions) Advance Directives on File: No Recently lost weight without trying: No Eating poorly because of decreased appetite: No Nutrition Risks: No Nutritional Risk Patient : No Current occupational status: retired Current occupation: [employer] Meds Allergies Allergy/AdvReac Type Severity Reaction Status Date / Time latex [LATEX] Allergy Intermediate RASH Verified 12/09/21 06:40 ENVIROMENTAL Allergy Intermediate HAYFEVER Uncoded 12/01/21 11:11 Food Allergy Formula Allergy Unknown Anaphylaxis Uncoded 12/01/21 11:11 Onions Allergy Unknown Anaphylaxis Uncoded 12/01/21 11:11 Pt states no medication Allergy Unknown none Uncoded 12/01/21 11:11 allerg seasonal allergies Allergy Unknown Anaphylaxis Uncoded 12/01/21 11:11 shellfish Allergy Unknown Anaphylaxis Uncoded 12/01/21 11:11 Home Medications Medication Instructions Recorded Confirmed Last Taken Type albuterol sulfate 90 mcg/actuation 2 puff INHALATION Q4-6H PRN 08/06/20 12/01/21 Unknown History aerosol inhaler buprenorphine 8 mg-naloxone 2 mg 2 film SUBLINGUAL DAILY 08/06/20 12/01/21 Unknown History sublingual film (Suboxone) fluticasone propionate 50 1 spray INTRANASAL DAILY 08/06/20 12/01/21 Unknown History mcg/actuation nasal spray,suspension [id number]-jeq-atgr fumarate 18 1 tab-cap PO BID 08/06/20 12/01/21 Unknown History mg-FA 600 mcg-vit K 40 mcg capsule (Multi For Her) ondansetron 4 mg disintegrating 4 mg PO Q8H PRN 08/06/20 12/01/21 Unknown History tablet pantoprazole 40 mg tablet,delayed 40 mg PO DAILY 08/06/20 12/01/21 Unknown History release mecobalamin (vitamin B12) 1,000 1,000 mcg PO DAILY 10/21/20 12/01/21 Unknown History mcg chewable tablet buspirone 15 mg tablet 15 mg PO BID 03/02/21 12/01/21 Unknown History vitamin E (dl, acetate) 45 mg (100 100 unit PO BEDTIME 03/02/21 12/01/21 Unknown History unit) capsule blood-glucose meter #1 ea 03/03/21 12/01/21 Unknown History ergocalciferol (vitamin D2) 1,250 1,250 mcg PO 2XW 03/03/21 12/01/21 Unknown History mcg (50,000 unit) capsule glucose 4 gram chewable tablet 4 g PO DIRECTED 03/03/21 12/01/21 Unknown History lancets 33 gauge #100 ea 03/03/21 12/01/21 Unknown History montelukast 10 mg tablet 10 mg PO QPM 03/03/21 12/01/21 Unknown History thiamine HCl (vitamin B1) 50 mg 50 mg PO QPM 03/03/21 12/01/21 Unknown History tablet oxcarbazepine 600 mg tablet 600 mg PO BID 05/07/21 12/01/21 Unknown History acarbose 25 mg tablet 25 mg PO TIDAC 12/01/21 12/01/21 Unknown History albuterol sulfate 1 amp INHALATION Q6H PRN 12/01/21 12/01/21 Unknown History ascorbic acid (vitamin C) 250 mg 1 tab PO TID 12/01/21 12/01/21 Unknown History tablet (Vitamin C) clonazepam 1 mg tablet 1 mg PO BID 12/01/21 12/01/21 Unknown History epinephrine 0.3 mg/0.3 mL IM DIRECTED 12/01/21 12/01/21 Unknown History injection, auto-injector Exam Airway Mallampati Class: III Neck ROM: Full Denture: Upper and Lower Loose/Missing/Broken Teeth: Yes Heart: rrr Lungs: bl breath sounds Assessment and Plan Final Anesthetic Review Family History of Problems with Anesthesia: No History of Problems with Anesthesia: No NPO: Yes ASA Class: III Final Preanesthetic Review: Meds/Allgs Chart Reviewed, Consent Obtained/Reviewed and Anes Risks/Benef Reviewed Patient Risk: High Procedure Risk: Intermediate Anesthetic Plan Anesthetic Plan: GA Disposition: Standard PACU
[2021-12-08 12:54] LABS: COVID-19 Test Negative (Negative); IDNOW Serial# 9DD0AD1C
[2021-12-09] VITALS (15 sets, daily range): BP systolic 122–170; BP diastolic 76–97; PULSE 59–84; RESP 16–20; TEMP 36.1–37.7; O2SAT 97–99
[2021-12-09] MEDS: Scopolamine 1.5 MG PATCH.TD.3 TRANSDERMA (06:23)
[2021-12-09] MEDS: Lactated Ringers 1,000 ML 999 ML IV (06:39)
[2021-12-09 06:49] LABS: Glucose, Whole Blood 90 mg/dL (60-115)
--- NOTE | 2021-12-09 14:11 | PM.OP ---
Brief Operative Note Date of Service: 12/09/21 Pre-op diagnosis: Excessive skin and cellulitis Post-op diagnosis: same Procedure: PROCEDURE: Bilateral brachioplasty and thighplasty INDICATION: This a 46 year old female who underwent laparoscopic sleeve gastrectomy of the gastric pouch (gastric bypass revision) on 03/01/2019. She had an excellent result achieving a BMI of 23.4 kg/m2 with a total weight loss of 93.6lbs, or 40.77% of her TBWL. As a result, she has developed skin irritation and intetrigo in both upper arms and medial thighs. On exam she has extreme skin laxity due to massive weight loss and age with the upper arms 6 cm below the level of the triceps and friction between the?inner thighs. Bilateral brachioplasty and thighplasty was recommended.?Risks and complications were discussed with the patient including bleeding, infection, flap necrosis, asymmetry, dehiscence, seroma, VTE. The patient understood the risks and was in agreement to proceed with surgery. PROCEDURE: The incisions were appropriately marked at the preop area with the patient standing and laying down. After induction of general anesthesia a Fernandez catheter and pneumatic compression devices were placed. The patient was prepped and draped in the usual sterile manner and the incisions were marked again and confirmed. In similar fashion both upper arms and thighs were also marked when the patient was standing. The upper arms were performed first. The skin was infiltrated with lidocaine and epinephrine. Skin was excised with the #15 blade. The anterior incision was made first. I did not commit to the posterior incision until dissection was completed and I could assess the appropriate location for the posterior incision to prevent excessive tension. Cautery was used to separate the skin from subcutaneous tissues. Careful attention was paid to make sure that the plain of excision was superficial as close to the skin as possible and superior to the fascia. The right upper arm skin was 19 cm x 9 cm (weight: 107gr) and the left 28 cm x 9 cm (weight: 113gr). Skin was closed in two layers using interrupted 3.0 Monocryl sutures for the dermis and 4.0 subcuticular Monocryl suture for the skin. In a similar manner the thigh incisions were appropriately marked. The legs were flexed at the knees and abducted at the hip level.?The anterior incision was made first. I did not commit to the posterior incision until dissection was completed and I could assess the appropriate location for the posterior incision to prevent excessive tension. Cautery was used to separate the skin from subcutaneous tissues. Careful attention was paid to make sure that the plain of excision was superficial as close to the skin as possible and superior to the fascia. The right thigh skin was 30 cm x 10 cm (weight: 215gr) and the left 33 cm x 10 cm (weight: 215gr). Skin was closed in two layers using interrupted 3.0 Monocryl sutures for the dermis and 4.0 subcuticular Monocryl suture for the skin. The patient was extubated and was transferred in a stable condition at the recovery room. I was present and performed all steps of the procedure. There were no residents available to assist. Mr. Ruiz was the orthopaedic physician assistant and Ms. Elizabeth Matias PA-C was the second high school assistant football coach. Phil Son MD, PhD, FACS Surgeon: Curtis Son MD Anesthesia: GETA and local Was an Auto Tester used for this Procedure?: Yes Auto Tester: Gregorio Ruiz Estimated blood loss (mL): 20 IV fluids (mL): 2,500 Urine output (mL): 400 Pathology: other (bilateral upper arm and thigh skins) Condition: stable Disposition: PACU
[2021-12-09] MEDS: fentaNYL citrate/PF 100 MCG/2 ML VIAL 50 MCG IVPUSH ×4 (15:26→15:59)
[2021-12-09] MEDS: oxyCODONE HCl Immed Release 5 MG TABLET 10 MG PO (15:51)
== END 2021-12-09 17:39 ==
LOC: HO.SSS 06:05
PROVIDERS: Physician Assistant; PCP Internal Medicine; Visit Provider Surgery
PROC: (CPT 15836; principal; 2021-12-09 07:30)
PROC: (CPT 15836; 2021-12-09 07:30)
DX: L98.7 Excessive and redundant skin and subcutaneous tissue (principal); L03.114 Cellulitis of left upper limb; L03.113 Cellulitis of right upper limb; L03.116 Cellulitis of left lower limb; L03.115 Cellulitis of right lower limb; K91.2 Postsurgical malabsorption, not elsewhere classified; Z98.84 Bariatric surgery status; F32.9 Major depressive disorder, single episode, unspecified; D64.9 Anemia, unspecified; J45.909 Unspecified asthma, uncomplicated; R94.7 Abnormal results of other endocrine function studies; I10 Essential (primary) hypertension; E16.2 Hypoglycemia, unspecified; M05.9 Rheumatoid arthritis with rheumatoid factor, unspecified; M79.7 Fibromyalgia; Z79.51 Long term (current) use of inhaled steroids; Z79.899 Other long term (current) drug therapy; Z91.040 Latex allergy status
CPT/HCPCS: 15836; 15832; 82947; 86850; 86900; 86901; 87635; 88304; J0131; J0690; J1100; J1170; J2250; J2405; J3010

== ENCOUNTER → 2021-12-15 07:57 | Outpatient (BNVA) | payer OTHER, SELFPAY | PROVIDERS: PCP Internal Medicine; Referring Provider Internal Medicine; Visit Provider Surgery | DX: L03.90 Cellulitis, unspecified (principal) | CPT/HCPCS: 99212 ==

== ENCOUNTER → 2022-01-03 14:15 | Outpatient (BNVA) | payer OTHER, SELFPAY | PROVIDERS: PCP Internal Medicine; Visit Provider Physician Assistant Surgical | DX: Z48.89 Encounter for other specified surgical aftercare (principal) | CPT/HCPCS: 99212 ==

== ENCOUNTER → 2022-01-07 11:04 | Outpatient (BNVA) | payer OTHER, SELFPAY | PROVIDERS: PCP Internal Medicine; Referring Provider Internal Medicine; Visit Provider Physician Assistant Surgical | DX: T81.31XD Disruption of external operation (surgical) wound, not elsewhere classified, subsequent encounter (principal); L98.7 Excessive and redundant skin and subcutaneous tissue | CPT/HCPCS: 99212 ==

== ENCOUNTER → 2022-01-14 08:26 | Outpatient (BNVA) | payer OTHER, SELFPAY | PROVIDERS: PCP Internal Medicine; Referring Provider Internal Medicine; Visit Provider Physician Assistant Surgical | DX: L98.7 Excessive and redundant skin and subcutaneous tissue (principal); Z98.84 Bariatric surgery status | CPT/HCPCS: 99212 ==

== ENCOUNTER → 2022-02-01 10:28 | Outpatient (BNVA) | payer OTHER, SELFPAY | PROVIDERS: PCP Internal Medicine; Referring Provider Internal Medicine; Visit Provider Physician Assistant Surgical | DX: L98.7 Excessive and redundant skin and subcutaneous tissue (principal) | CPT/HCPCS: 99212 ==

== ENCOUNTER → 2022-02-14 08:10 | Outpatient (BNVA) | payer OTHER, SELFPAY | PROVIDERS: PCP Internal Medicine; Visit Provider Surgery | DX: M79.3 Panniculitis, unspecified (principal) | CPT/HCPCS: Q3014 ==

== ENCOUNTER → 2022-02-22 05:54 | Day surgery (SDC) | payer OTHER, SELFPAY ==
[2022-02-14 10:36] VITALS: BMI 26.4
[2022-02-16 08:20] LABS: MANUAL DIFF FLAG NO
[2022-02-16 08:53] LABS: Basophils Percent Auto 0.5 % (0-2); Eosinophils Absolute Auto 0.1 X10*3/uL (0.0-0.4); Eosinophils Percent Auto 1.6 % (0-4); Hematocrit 39.4 % (37.0-47.0); Hemoglobin 12.7 g/dl (12.0-16.0); Imm Gran Abs Auto 0.01 X10*3/uL (0.00-0.03); Imm Gran Pct Auto 0.2 % (0.0-0.4); Lymphocytes Absolute Auto 1.1 X10*3/uL (1.2-4.9); Lymphocytes Percent Auto 25.9 % (20-40); Mean Corpuscular HGB Conc 32.2 g/dl (31.0-35.0); Mean Corpuscular Hemoglobin 28.5 pg (27.0-33.0); Mean Corpuscular Volume 88.5 fL (80.0-98.0); Mean Platelet Volume 10.3 fL (9.4-12.3); Monocytes Absolute Auto 0.3 X10*3/uL (0.1-1.2); Monocytes Percent Auto 6.9 % (2-11); Neutrophils Absolute Auto 2.8 x10*3/uL (2.0-8.3); Neutrophils Percent Auto 64.9 % (45-73); Platelet Count 210 X10*3/uL (160-400); Red Blood Count 4.45 X10*6/uL (4.20-5.50); Red Cell Distribution Width 12.8 % (11.0-16.0); White Blood Count 4.4 X10*3/uL (4.8-10.8)
[2022-02-16 08:58] LABS: Prothrombin Time 11.3 SEC (9.9-13.0)
[2022-02-16 09:01] LABS: Partial Thromboplastin Time 43.8 SEC (24.1-38.0)
[2022-02-16 09:13] LABS: Alanine Aminotransferase 8 U/L (0-31); Albumin Level 4.1 g/dL (3.5-5.0); Alkaline Phosphatase 74 U/L (39-117); Anion Gap 11 (12-20); Aspartate Amino Transferase 20 U/L (5-31); Bilirubin Total 0.4 mg/dL (0.0-1.0); Blood Urea Nitrogen 11 mg/dL (9-16); Calcium 9.3 mg/dL (8.4-10.2); Carbon Dioxide 29 mmol/L (22-29); Chloride 105 mmol/L (96-108); Creatinine Clr Calc Pharmacy 94.3; Estimated Glomerular Filt Rate > 60; Glucose Random 95 mg/dL (60-115); Sodium 141 mmol/L (135-145); Total Protein 7.1 g/dL (6.5-8.0)
--- NOTE | 2022-02-16 12:59 | W.MHC.F2F ---
Service Date Service Date: 02/16/22 Encounter Date of encounter: 02/22/22 Reasons for Services Signs and symptoms assessed: pain at incision site Reason for detention: postoperative assessment and/or care MD Overseeing Care: Curtis Son Homebound: Leaving the home is medically contraindicated at this time without the asist of a device and/or another person due th the listed conditions above and below. Reason homebound: pain with ambulation and unable to drive Certification: Based on the above findings, I certify that this patient is confined to the home and needs intermittent detention care, physical therapy and/or speech therapy, or continues to need occupational therapy. The patient is under my care, and I have initiated the establishment of the plan of care. The patient will be followed by a physician who will periodically review the plan of care.
--- NOTE | 2022-02-18 08:46 | P.CONAN_ITS ---
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 (Acute) Overweight (BMI 25.0-29.9) (Acute) GERD (gastroesophageal reflux disease) (Acute) Sprain of ankle, right (Acute) Bradycardia (Acute) Hypotension (Acute) Cellulitis (Acute) Postgastrectomy malabsorption (Acute) Nausea (Acute) Panniculitis (Acute) Seropositive rheumatoid arthritis (Acute) Elevated cortisol level (Acute) Hypoglycemia (Acute) Fibromyalgia (Acute) Arthritis (Acute) Past Medical History Medical History Anemia Arthritis Asthma Carpal tunnel syndrome on both sides Depression Elevated cortisol level Fibromyalgia History of bipolar disorder History of irregular heartbeat History of opioid abuse History of schizophrenia History of seizures Hypertension Hypoglycemia Kidney calculi Migraine Postoperative nausea and vomiting Seropositive rheumatoid arthritis Family History Family History Father Diabetes HTN (hypertension) Cancer Heart disease Mother Cancer Diabetes HTN (hypertension) Family history of problems with anesthesia: No Surgical History Surgical History (Updated 02/22/22 @ 15:36 by JUAN CARLOS Holloway) H/O abdominoplasty H/O section H/O colonoscopy H/O esophagogastroduodenoscopy H/O gastric bypass H/O hemorrhoidectomy H/O tubal ligation History of back surgery History of bilateral breast reduction surgery History of blepharoplasty History of endometrial ablation History of knee surgery S/P brachioplasty S/P thighplasty History of Problems with Anesthesia: No Social History Social History Household Members: Children Household Members Other:: daughter Are you a primary manager medicare to a significant other at home: No Do you 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 If so, by whom?: No Are you DNR?: No Advance Directives: No Advance Directives Information Provided: Yes Advance Directives on File: No Recently lost weight without trying: No Eating poorly because of decreased appetite: No Nutrition Risks: No Nutritional Risk Patient : No Current occupational status: retired Current occupation: [employer] Allergies Allergy/AdvReac Type Severity Reaction Status Date / Time latex [LATEX] Allergy Intermediate RASH Verified 02/22/22 06:29 ENVIROMENTAL Allergy Intermediate HAYFEVER Uncoded 02/22/22 06:29 Food Allergy Formula Allergy Unknown Anaphylaxis Uncoded 02/22/22 06:29 Onions Allergy Unknown Anaphylaxis Uncoded 02/22/22 06:29 Pt states no medication Allergy Unknown none Uncoded 02/22/22 06:29 allerg seasonal allergies Allergy Unknown Difficulty Uncoded 02/22/22 06:29 Breathing shellfish Allergy Unknown Anaphylaxis Uncoded 02/22/22 06:29 Home Medications Medication Instructions Recorded Confirmed Last Taken Type albuterol sulfate 90 mcg/actuation 2 puff INHALATION Q4-6H PRN 08/06/20 02/14/22 Unknown History aerosol inhaler buprenorphine 8 mg-naloxone 2 mg 2 film SUBLINGUAL DAILY 08/06/20 02/22/22 02/21/22 History sublingual film (Suboxone) fluticasone propionate 50 1 spray INTRANASAL DAILY 08/06/20 02/14/22 Unknown History mcg/actuation nasal spray,suspension toxhnhbhz-vac-wrqw fumarate 18 1 tab-cap PO BID 08/06/20 02/14/22 Unknown History mg-FA 600 mcg-vit K 40 mcg capsule (Multi For Her) pantoprazole 40 mg tablet,delayed 40 mg PO DAILY 08/06/20 02/14/22 Unknown History release mecobalamin (vitamin B12) 1,000 1,000 mcg PO DAILY 10/21/20 02/14/22 Unknown History mcg chewable tablet buspirone 15 mg tablet 15 mg PO BID 03/02/21 02/14/22 Unknown History vitamin E (dl, acetate) 45 mg (100 100 unit PO BEDTIME 03/02/21 02/14/22 02/14/22 History unit) capsule blood-glucose meter #1 ea 03/03/21 02/14/22 Unknown History ergocalciferol (vitamin D2) 1,250 1,250 mcg PO 2XW 03/03/21 02/14/22 Unknown History mcg (50,000 unit) capsule glucose 4 gram chewable tablet 4 g PO DIRECTED 03/03/21 02/14/22 Unknown History lancets 33 gauge #100 ea 03/03/21 02/14/22 Unknown History montelukast 10 mg tablet 10 mg PO QPM 03/03/21 02/14/22 Unknown History thiamine HCl (vitamin B1) 50 mg 50 mg PO QPM 03/03/21 02/14/22 Unknown History tablet oxcarbazepine 600 mg tablet 600 mg PO BID 05/07/21 02/14/22 02/14/22 History acarbose 25 mg tablet 25 mg PO TIDAC 12/01/21 02/14/22 02/14/22 History albuterol sulfate 1 amp INHALATION Q6H PRN 12/01/21 02/14/22 Unknown History ascorbic acid (vitamin C) 250 mg 1 tab PO TID 12/01/21 02/14/22 Unknown History tablet (Vitamin C) clonazepam 1 mg tablet 1 mg PO BID 12/01/21 02/14/22 Unknown History epinephrine 0.3 mg/0.3 mL IM DIRECTED 12/01/21 02/14/22 Unknown History injection, auto-injector ferrous sulfate 325 mg (65 mg 325 mg PO BID 12/15/21 02/22/22 02/21/22 History iron) tablet (Feosol) Exam Exam Date and Time: February 18, 2022 0846 Height,Weight and Vital Signs: Height 5 ft 4 in Weight 69.853 kg Pertinent Lab Results Pertinent Lab Results: Laboratory Tests 02/16/22 02/16/22 02/16/22 08:10 08:10 08:10 WBC 4.4 L RBC 4.45 Hgb 12.7 Hct 39.4 MCV 88.5 MCH 28.5 MCHC 32.2 RDW 12.8 Plt Count 210 MPV 10.3 Immature Gran % (Auto) 0.2 Neut % (Auto) 64.9 Lymph % (Auto) 25.9 [place] % (Auto) 6.9 Eos % (Auto) 1.6 Baso % (Auto) 0.5 Lymph # (Auto) 1.1 L [place] # (Auto) 0.3 Eos # (Auto) 0.1 Baso # (Auto) 0.0 Abs Immat Gran (auto) 0.01 Absolute Neuts (auto) 2.8 Absolute Nucleated RBC 0.000 Nucleated RBC % (auto) 0.0 PT 11.3 INR 1.0 APTT 43.8 H Sodium 141 Potassium 4.0 Chloride 105 Carbon Dioxide 29 Anion Gap 11 L BUN 11 Creatinine 0.70 Estim Creat Clear Calc 94.3 Estimated GFR > 60 Random Glucose 95 Calcium 9.3 Total Bilirubin 0.4 AST 20 ALT 8 Alkaline Phosphatase 74 Total Protein 7.1 Albumin 4.1 Blood Type Antibody Screen 02/16/22 08:10 WBC RBC Hgb Hct MCV MCH MCHC RDW Plt Count MPV Immature Gran % (Auto) Neut % (Auto) Lymph % (Auto) [place] % (Auto) Eos % (Auto) Baso % (Auto) Lymph # (Auto) [place] # (Auto) Eos # (Auto) Baso # (Auto) Abs Immat Gran (auto) Absolute Neuts (auto) Absolute Nucleated RBC Nucleated RBC % (auto) PT INR APTT Sodium Potassium Chloride Carbon Dioxide Anion Gap BUN Creatinine Estim Creat Clear Calc Estimated GFR Random Glucose Calcium Total Bilirubin AST ALT Alkaline Phosphatase Total Protein Albumin Blood Type O Positive Antibody Screen NEGATIVE Narrative Narrative: EKG 09/2021 sinus rhythm at 70/Min; incomplete right bundle-branch block pattern 3 Day Holter 09/2021 1. Patient was monitored for total period of 3 days 2. Baseline rhythm is normal sinus rhythm with average heart rate of 73 beats per minute 3. No significant pauses noted 4. Seven total runs of supraventricular episodes with longest lasting 16 beats at about 150 beats per minute 5. Total 59 PVCs and 242 PACs accounting for rare ectopy 6. Patient reported events correlated mostly with sinus rhythm Per 09/2021 cardiol visit echocardiogram from 2016 had shown LVEF of 60-65%, mild LVH, but was otherwise grossly unremarkable.? Last myocardial perfusion imaging studies from 2018 and that shows normal perfusion. Assessment and Plan Assessment Anesthesia Assessment: Chart Reviewed Final Anesthetic Review Family History of Problems with Anesthesia: No History of Problems with Anesthesia: No Documented by User: Jimmy Butt MD 02/22/22 18:37 HPI - Anesthesia Eval Consult details Narrative: 46yo F for Panniculectomy s/p brachioplasty 12/2021 with GA-ETT 7 suboxone daily. Tapperred the dose and stopped it PMFSH Past Medical History Medical History Anemia Arthritis Asthma Carpal tunnel syndrome on both sides Depression Elevated cortisol level Fibromyalgia History of bipolar disorder History of irregular heartbeat History of opioid abuse History of schizophrenia History of seizures Hypertension Hypoglycemia Kidney calculi Migraine Postoperative nausea and vomiting Seropositive rheumatoid arthritis Family History Family History Father Diabetes HTN (hypertension) Cancer Heart disease Mother Cancer Diabetes HTN (hypertension) Surgical History Surgical History (Updated 02/22/22 @ 15:36 by JUAN CARLOS Holloway) H/O abdominoplasty H/O section H/O colonoscopy H/O esophagogastroduodenoscopy H/O gastric bypass H/O hemorrhoidectomy H/O tubal ligation History of back surgery History of bilateral breast reduction surgery History of blepharoplasty History of endometrial ablation History of knee surgery S/P brachioplasty S/P thighplasty Social History Social History Household Members: Children Household Members Other:: daughter Are you a primary manager medicare to a significant other at home: No Do you 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 If so, by whom?: No Are you DNR?: No Advance Directives: No Advance Directives Information Provided: Yes Advance Directives on File: No Recently lost weight without trying: No Eating poorly because of decreased appetite: No Nutrition Risks: No Nutritional Risk Patient : No Current occupational status: retired Current occupation: [employer] Allergies Allergy/AdvReac Type Severity Reaction Status Date / Time latex [LATEX] Allergy Intermediate RASH Verified 02/22/22 06:29 ENVIROMENTAL Allergy Intermediate HAYFEVER Uncoded 02/22/22 06:29 Food Allergy Formula Allergy Unknown Anaphylaxis Uncoded 02/22/22 06:29 Onions Allergy Unknown Anaphylaxis Uncoded 02/22/22 06:29 Pt states no medication Allergy Unknown none Uncoded 02/22/22 06:29 allerg seasonal allergies Allergy Unknown Difficulty Uncoded 02/22/22 06:29 Breathing shellfish Allergy Unknown Anaphylaxis Uncoded 02/22/22 06:29 Home Medications Medication Instructions Recorded Confirmed Last Taken Type albuterol sulfate 90 mcg/actuation 2 puff INHALATION Q4-6H PRN 08/06/20 02/14/22 Unknown History aerosol inhaler buprenorphine 8 mg-naloxone 2 mg 2 film SUBLINGUAL DAILY 08/06/20 02/22/22 02/21/22 History sublingual film (Suboxone) fluticasone propionate 50 1 spray INTRANASAL DAILY 08/06/20 02/14/22 Unknown History mcg/actuation nasal spray,suspension [id number]-tow-idan fumarate 18 1 tab-cap PO BID 08/06/20 02/14/22 Unknown History mg-FA 600 mcg-vit K 40 mcg capsule (Multi For Her) pantoprazole 40 mg tablet,delayed 40 mg PO DAILY 08/06/20 02/14/22 Unknown History release mecobalamin (vitamin B12) 1,000 1,000 mcg PO DAILY 10/21/20 02/14/22 Unknown History mcg chewable tablet buspirone 15 mg tablet 15 mg PO BID 03/02/21 02/14/22 Unknown History vitamin E (dl, acetate) 45 mg (100 100 unit PO BEDTIME 03/02/21 02/14/22 02/14/22 History unit) capsule blood-glucose meter #1 ea 03/03/21 02/14/22 Unknown History ergocalciferol (vitamin D2) 1,250 1,250 mcg PO 2XW 03/03/21 02/14/22 Unknown History mcg (50,000 unit) capsule glucose 4 gram chewable tablet 4 g PO DIRECTED 03/03/21 02/14/22 Unknown History lancets 33 gauge #100 ea 03/03/21 02/14/22 Unknown History montelukast 10 mg tablet 10 mg PO QPM 03/03/21 02/14/22 Unknown History thiamine HCl (vitamin B1) 50 mg 50 mg PO QPM 03/03/21 02/14/22 Unknown History tablet oxcarbazepine 600 mg tablet 600 mg PO BID 05/07/21 02/14/22 02/14/22 History acarbose 25 mg tablet 25 mg PO TIDAC 12/01/21 02/14/22 02/14/22 History albuterol sulfate 1 amp INHALATION Q6H PRN 12/01/21 02/14/22 Unknown History ascorbic acid (vitamin C) 250 mg 1 tab PO TID 12/01/21 02/14/22 Unknown History tablet (Vitamin C) clonazepam 1 mg tablet 1 mg PO BID 12/01/21 02/14/22 Unknown History epinephrine 0.3 mg/0.3 mL IM DIRECTED 12/01/21 02/14/22 Unknown History injection, auto-injector ferrous sulfate 325 mg (65 mg 325 mg PO BID 12/15/21 02/22/22 02/21/22 History iron) tablet (Feosol) Exam Airway Mallampati Class: II Neck ROM: Limited Denture: Upper and Lower Loose/Missing/Broken Teeth: Yes Heart: S1, S2 Lungs: b/l breath sounds Assessment and Plan Assessment Anesthesia Assessment: Anesthesia Plan Discussed Final Anesthetic Review NPO: Yes ASA Class: III Final Preanesthetic Review: No Changes in Pt Med Stat, Meds/Allgs Chart Reviewed, Consent Obtained/Reviewed and Anes Risks/Benef Reviewed Patient Risk: Intermediate Procedure Risk: Intermediate Anesthetic Plan Anesthetic Plan: GA Disposition: Standard PACU
--- NOTE | 2022-02-19 14:39 | P.HPSUR_ITS ---
Pre-Procedural Eval Section A Date of Service: 02/19/22 The patient is an INPATIENT: No The History & Physical has been completed within 30 days and I have reviewed it.: Yes Section B Chief Complaint: excessive and redundant skin and tissue Relevant Family History (Specify if Yes): No Relevant Social History: None Present Medications: None Medical History: No relevant PMH History of Previous Operations: Relevant previous surgery/procedure and date(s) (Sleeve gastrectomy) Allergies: Allergies Allergy/AdvReac Type Severity Reaction Status Date / Time latex [LATEX] Allergy Intermediate RASH Verified 02/14/22 10:00 ENVIROMENTAL Allergy Intermediate HAYFEVER Uncoded 02/14/22 10:00 Food Allergy Formula Allergy Unknown Anaphylaxis Uncoded 02/14/22 10:00 Onions Allergy Unknown Anaphylaxis Uncoded 02/14/22 10:00 Pt states no medication Allergy Unknown none Uncoded 02/14/22 10:00 allerg seasonal allergies Allergy Unknown Anaphylaxis Uncoded 02/14/22 10:00 shellfish Allergy Unknown Anaphylaxis Uncoded 02/14/22 10:00 Review of Systems Sugical H&P ROS: Negative: Constitution, Cardiovascular, Respiratory, Neurological, Psychiatric, Hem-Onc, Allergic/Immunologic, Gastrointestinal, Genitourinary, Musculoskeletal, Integumentary, Endocrine and Eyes/Ears/Nose/Throat Exam Surgical H&P Exam: Normal: HEENT, Normal: Heart, Normal: Lungs, Normal: E xtremities, Normal: Abdomen, Normal: Skin and Normal: Neurological Plan Diagnosis/Plan: Unchanged I have reviewed the history and physical and performed a pertinent physical examination on my patient. No changes have occurred unless specified.
[2022-02-22] VITALS (25 sets, daily range): BP systolic 113–143; BP diastolic 53–85; PULSE 48–77; RESP 13–18; TEMP 36–37.1; O2SAT 98–100
[2022-02-22 06:41] LABS: Glucose, Whole Blood 88 mg/dL (60-115)
[2022-02-22] MEDS: Scopolamine 1.5 MG PATCH.TD.3 TRANSDERMA (06:46)
[2022-02-22] MEDS: Lactated Ringers 1,000 ML 80 ML IVCONT ×2 (06:56→15:26)
--- NOTE | 2022-02-22 11:39 | PM.OP ---
Brief Operative Note Date of Service: 02/22/22 Pre-op diagnosis: Recurrent panniculitis Post-op diagnosis: same Procedure: PROCEDURE: Panniculectomy and subcutaneous fat flap INDICATION: This a 46 year old female who underwent laparoscopic sleeve gastrectomy of her gastric pouch on 02/19/2019. She had an excellent result achieving a BMI of 25.8 kg/m2 with a total weight loss of 79.6lbs, or 35.6% of her TBWL. As a result, she has developed panniculitis which has not resolved despite continuous use of clotrimazole ointment. On exam she has extreme skin laxity due to massive weight loss and age with the abdominal pannus. The patient has a previous panniculectomy. Redo panniculectomy was recommended. We discussed the two options for the panniculectomy of using a combined vertical and horizontal incisions or just a horizontal (bikini) incision. It was my recommendation to do only horizontal incision based on her body habitus and skin laxity. The patient agreed with this. Risks and complications were discussed with the patient including bleeding, infection, umbilical loss, flap necrosis, asymmetry, dehiscence, seroma, VTE. The patient understood the risks and was in agreement to proceed with surgery. PROCEDURE: The incisions were appropriately marked at the preop area with the patient standing and laying down. After induction of general anesthesia, pneumatic compression devices were placed. The patient was prepped and draped in the usual sterile manner and the incisions were marked again and confirmed. The skin was infiltrated with lidocaine and epinephrine. The #10 blade scalpel was used. Cautery was used to divide the subcutaneous tissues until the fascia was identified. Cautery was also used to separate the pannus from the fascia. The inferior incision was made initially and I mobilized the upper flap. This was dififcult due to extensive scarring from previous panniculectomy. When I reached the umbilicus which was transposed at the time of the first panniculectomy, I determined that there would be too much tension to resect above the umbilicus and transpose it again. With the patient in reflex position I confirmed that the skin flaps were appropriate and would allow for the tissues to come together with reasonable tension. At that point a horizontal incision was made 3 cm below the umbilicus. #10 blade was used for the skin and cautery for the remaining tissues. A subcutaneous fat flap was raised from the upper flap in order to fill the space under the skin and support the closure of the two flaps. With this flap I was also able to preserve the umbilical stalk. In addition the inferior flap was mobilized caudally for a few centimeters to create a space for the subcutaneous fat flap as well as relieve tension from the closure. No bleeding was noted anywhere. One ELIZA drain was placed from the left corner of the horizontal incision across the wound and was secured in place with a silk suture. Zynrelef was applied at the fascial bed and underneat the subcutaneous fat flap. The subcutaneous fat flap was secured under the inferior flap with several interrupted 3.0 Monocryl sutures. The two flaps were brought together and were attached at the midline of the horizontal incision with a #3.0 Monocryl suture. In a similar fashion the skin flaps were re-approximated with multiple 3.0 Monocryl sutures. The skin was closed in all incisions with 4.0 Monocryl sutures. Steri-strips, xeroform gauzes and gauzes were used to cover the incisions. An abdominal binder was also placed. The was awaken and was transferred to the recover room in a stable condition. I was present and performed the entire procedure. Mr. Ruiz was the list of first job ideas. Phil Son MD, PhD, FACS Surgeon: Curtis Son MD Surgeon: Curtis Son MD Anesthesia: GETA and local Was an Briquetter Operator used for this Procedure?: Yes Briquetter Operator: Gregorio Ruiz Estimated blood loss (mL): 10 IV fluids (mL): 1,500 Urine output (mL): 0 (No Fernandez to record) Pathology: other (Abdominal pannus) Condition: stable Disposition: PACU
[2022-02-22] MEDS: fentaNYL citrate/PF 100 MCG/2 ML VIAL 25 MCG IVPUSH ×4 (12:21→12:36)
[2022-02-22] MEDS: HYDROmorphone HCl 0.5 MG/0.5 ML SYRINGE 0.25 MG IVPUSH ×4 (12:36→12:51)
[2022-02-22 12:47] LABS: Glucose, Whole Blood 115 mg/dL (60-115)
[2022-02-22] MEDS: HYDROmorphone HCl 0.5 MG/0.5 ML SYRINGE IVPUSH ×3 (13:20→14:00)
--- NOTE | 2022-02-22 15:38 | P.DS_ITS ---
DS: Providers Provider Date of Service: 02/23/22 Primary care physician: Kyra Doyle MD DS: Summary Hospital Course Hospital Course: DISCHARGE SUMMARY ? ADMITTING DIAGNOSIS: panniculitis, s/p GBP revision with laparoscopic sleeve gastrectomy and hiatal hernia repair. ? DISCHARGE DIAGNOSIS: The same. ? PAST SURGICAL HISTORY: , GBP, revision of GBP with Laparoscopic sleeve gastrectomy and hiatal hernia repair. ? PROCEDURE: Panniculectomy. ? HISTORY OF PRESENT ILLNESS: The patient is a46 year-old female with a BMI of 26.4 kg/m2 and associated co- morbidities as described previous. The patient had a revision of GBP with laparoscopic sleeve gastrectomy on02/19/2019 and has lost a total of 79.6 lbs, or 34.67 % of her initial weight and her BMI reduced to 26.4 kg/m2 from 46.3 kg/m2. As a result of the massive weight loss she developed a large abdominal pannus and persistent panniculitis recalcitrant to medical treatment. The patient was electively scheduled for panniculectomy. Risks and complications of the surgery were discussed with the patient in advance, particularly the possibility of , pulmonary embolism, skin necrosis, loss of umbilicus, flap necrosis, wound dehiscence, flap asymmetry, bleeding requiring transfusion. The patient understood all the risks and was in agreement with the surgical plan. ? ? ? On postoperative day #1 the patient was started on Phase 3 bariatric diet. The Fernandez was discontinued. She was allowed to ambulate and she had no dizziness. During the first day, the patient did fairly well,having some incisional pain, but able to ambulate adequately and to tolerate liquids well. All dressings were taken down and the all incisions were inspected. There was no evidence of infection or bleeding or significant discharge. All flaps and umbilicus were viable and there was no dehiscence. ELIZA drains had minimal output with serosanguinous fluid. ? Since the patient is doing well, we decided that the patient was ready to be discharged. The patient was given instructions to follow-up with me next week and to call my office for any fever over 101, persistent abdominal pain, nausea, vomiting, and symptoms of DVT such as calf tenderness, or leg swelling, or pulmonary embolism such as chest pain or shortness of breath. The patient was also instructed to drink 40-60 ounces of liquids per day using the 1-ounce cups and start on 3 Pure protein shakes per day. The patient was given prescription for Tylenol for pain, Zofran prn for nausea and a 10-day course of Keflex twice a day. The patient was encouraged to ambulate and use the incentive spirometer. However it was strongly recommended to do so with assistance and avoid any abdominal straining for at least one month. The patient was allowed only to do sponge baths, and encouraged to use the recliner at home and not the bed. All of these instructions were given to the patient personally. All questions were answered and the patient understood all instructions. The instructions were given to the patient in print as well. Time Spent with Patient Time attestation: Total time spent providing and/or coordinating discharge services: Discharge coordination time: Less than 30 minutes Quality: Safe Use of Opioids Does Pt have an Active Cancer Diagnosis on the Problem List?: No Quality: Stroke Does the patient have a stroke diagnosis?: No Physical Exam Vital Signs: Vital Signs: Last Vital Signs Temp 98.3 F 02/22/22 11:36 Pulse 64 02/22/22 15:30 Resp 16 02/22/22 15:30 BP 128/72 02/22/22 15:30 Pulse Ox 98 02/22/22 15:30 BMI result Body Mass Index 26.4 DS: Data Data Completed and Pending Pending studies at discharge: Pending at discharge 02/22/22 10:10 Surgical [PTH] Routine Labs on day of discharge: Laboratory Results - last 24 hr 02/22/22 02/22/22 06:36 12:43 POC Glucose 88 115 Discharge Plan Discharge Patient Disposition: Home Health Service Referrals: Kyra Driscoll MD [Primary Care Provider] - 1 Week Discharge Medications: Continued alcohol swabs [Alcohol Prep Pads] Pads, Medicated 1 pad topical DIRECTED Qty: 100 5RF tizanidine 4 mg tablet 4 mg PO TID PRN (Reason: for muscle spasm) Qty: 90 5RF hydroxychloroquine 200 mg tablet 400 mg PO QAM Qty: 180 1RF dicyclomine 10 mg capsule 10 mg PO .prn 30 Days Qty: 30 1RF gabapentin 400 mg capsule 400 mg PO TID Qty: 90 5RF Rasuvo (PF) 25 mg/0.5 mL auto-injector 25 mg subcut QWEEK Qty: 2 3RF ondansetron HCl 4 mg tablet 4 mg PO Q6H PRN (Reason: nausea and vomiting) Qty: 30 0RF bacitracin zinc [Antibiotic (bacitracin zinc)] 500 unit/gram ointment 1 appl topical DAILY Qty: 14 0RF Rx Instructions: apply sparingly as directed Breo Ellipta 200-25 mcg/dose blister with device 1 ea inhalation DAILY Qty: 60 0RF acarbose 25 mg tablet 25 mg PO TIDAC 0RF albuterol sulfate 2.5 mg /3 mL (0.083 %) solution for nebulization 1 amp inhalation Q6H PRN (Reason: Wheezing) 0RF clonazepam 1 mg tablet 1 mg PO BID 0RF Rx Instructions: 1 in am 2 in pm epinephrine 0.3 mg/0.3 mL auto-injector IM DIRECTED 0RF ascorbic acid (vitamin C) [Vitamin C] 250 mg tablet 1 tab PO TID 0RF pantoprazole 40 mg tablet,delayed release (DR/EC) 40 mg PO DAILY 0RF Multi For Her 18 mg iron-600 mcg-40 mcg capsule 1 tab-cap PO BID 0RF fluticasone propionate 50 mcg/actuation spray,suspension 1 spray intranasal DAILY 0RF Rx Instructions: administer into each nostril buprenorphine-naloxone [Suboxone] 8-2 mg film 2 film sublingual DAILY 0RF Rx Instructions: place 1 strip/tab under (each) side of tongue albuterol sulfate 90 mcg/actuation HFA aerosol inhaler 2 puff inhalation Q4-6H PRN (Reason: Wheezing) 0RF vitamin E (dl, acetate) 100 unit capsule 100 unit PO BEDTIME 0RF buspirone 15 mg tablet 15 mg PO BID 0RF oxcarbazepine 600 mg tablet 600 mg PO BID 0RF mecobalamin (vitamin B12) 1,000 mcg tablet,chewable 1,000 mcg PO DAILY 0RF (DME) lancets 33 gauge misc See Rx Instructions ea Not Applicable BID Qty: 100 0RF Rx Instructions: As directed thiamine HCl (vitamin B1) 50 mg tablet 50 mg PO QPM 0RF ergocalciferol (vitamin D2) 1,250 mcg (50,000 unit) capsule 1,250 mcg PO 2XW 0RF montelukast 10 mg tablet 10 mg PO QPM 0RF glucose 4 gram tablet,chewable 4 g PO DIRECTED 0RF (DME) blood-glucose meter Kit See Rx Instructions ea Not Applicable BID Qty: 1 0RF Rx Instructions: As directed ferrous sulfate [Feosol] 325 mg (65 mg iron) tablet 325 mg PO BID 0RF cephalexin 500 mg capsule 500 mg PO Q12H Qty: 30 2RF Discontinued clotrimazole 1 % cream 1 appl topical BID Qty: 45 2RF Discharge Orders: Discharge Order (Routine); Ordered 02/23/22 Ordered By: Curtis Son Diet: other Activity on Discharge: Use cane or walker Activity Restrictions/Additional Instructions: 1) Start Keflex antibiotic tonight and take one pill every 12 hours 2) No showers. Only sponge baths 3) Avoid any tension at the abdomen and always have help getting up. Keep knees slightly bent and upper torso flexed forward. No abdominal stretching 4) Take 1 tab of Colace and one tablespoon of Metamucil daily Diet: 4 Celebrate protein shakes with 1 scoop in 8oz of almond milk each one and one Zone Perfect bar until you have a bowel movement. Once you have a bowel movement please change diet plan to 3 Celebrate 4:1 shakes, one Zone Perfect bar and one meal with 4 forks of meat and 4 forks of vegetables or salad. Do not stop or reduce shakes and bars. They are very important for your healing 5) Change dressings daily and send pictures to Dr. Son. Replace loose steri-strips and xeroform gauze along the incisions.On top of the xeroform gauzes place 4x4 dressings and paper tape 6) Supplies needed: Kerlex rolls, 4x4 dressings, xeroform gauze, 1/2'' steri- strips, paper tape. You will need to use several of the above supplies on a daily basis. 7) Avoid heavy lifting for 3 weeks 8) Take Tylenol 500mg every 4 hours, around the clock for the next 3-4 days. If pain has improved you may slowly reduce its frequency 9) Avoid aspirin, Motrin, Aleve, Advil, Naproxyn, Ibuprofen for 2 weeks 7) Call Dr[address] Son at [phone] for fever >101F, persistent incisional pain,, discharge from any of the incisions, swelling, redness, shortness of breath, calf pain 8) A visiting nurse will be seeing you daily to help with dressing changes. Please send me pictures of the drain fluid, the incisions and the umbilicus daily with each dressing change 9) Measure accurately the drain output and record it in a paper for 24 hour periods (7am to 7am). Please bring that sheet with you at your next office appointment.? Care Plan Goals: incisional healing and good protein intake Health Concerns: s/p panniculectomy Plan of Treatment: as above Assessment: stable s/p panniculectomy
[2022-02-22] MEDS: Lactated Ringers 1,000 ML 100 ML IVCONT (15:44)
[2022-02-22] MEDS: ceFAZolin Sodium/Dextrose,Iso 2 GM/50 ML PIGGYBACK IV (15:48)
[2022-02-22 15:59] LABS: Hematocrit 35.3 % (37.0-47.0); Hemoglobin 11.5 g/dl (12.0-16.0)
[2022-02-22 16:18] LABS: Anion Gap 13 (12-20); Blood Urea Nitrogen 11 mg/dL (9-16); Calcium 8.8 mg/dL (8.4-10.2); Carbon Dioxide 25 mmol/L (22-29); Chloride 104 mmol/L (96-108); Creatinine Clr Calc Pharmacy 95.6; Estimated Glomerular Filt Rate > 60; Glucose Random 152 mg/dL (60-115); Potassium 4.3 mmol/L (3.3-5.1); Sodium 138 mmol/L (135-145)
--- NOTE | 2022-02-22 17:28 | P.PNGS_ITS ---
Subjective Subjective Date of Service: 02/23/22 Interval history: Feeling well. Mild incisonal pain. Tolerating phase 3 bariatric diet Physical Exam Vital Signs: Vital Signs: Last Vital Signs Temp 96.8 F 02/22/22 17:20 Pulse 62 02/22/22 17:20 Resp 16 02/22/22 17:20 BP 140/78 H 02/22/22 17:20 Pulse Ox 100 02/22/22 17:20 BMI result Body Mass Index 26.4 GI: Inspection: Yes normal to inspection, Yes incision (clean, dry and intact) and Yes other (Keegan drain with serosanguinous fluid) Extrem: Right lower extremity: normal to inspection (no calf tenderness) Left lower extremity: normal to inspection (no calf tenderness) Objective Data Active Medications Albuterol Sulfate (Albuterol Sulfate (0.083%) 2.5 Mg/3 Ml Vial.Neb) 2.5 mg INHALE Q6H PRN PRN Reason: Wheezing Buprenorphine/Naloxone (Buprenorphine/Naloxone 8/2 Mg Film) 2 film SUBLINGUAL DAILY [facility] Buspirone HCl (Buspirone Hcl 5 Mg Tablet) 15 mg PO BID [facility] Clonazepam (Clonazepam 1 Mg Tablet) 1 mg PO BID [facility] Famotidine (Famotidine/Pf 20 Mg/2 Ml Vial) 20 mg IVPUSH BID [facility] Fluticasone Propionate (Fluticasone Propionate Nasal 16 Gm [place]) 1 spray NOSTRIL-B DAILY [facility] Fluticasone/Vilanterol (Fluticasone/Vilanterol 200/25 Blst.W.Dev) 1 puff INHALE RDAILY [facility] Lactated Ringer's (Lr) 1,000 mls @ 100 mls/hr IVCONT .Q10H [facility] Last Admin: 02/22/22 15:44 Dose: 100 mls/hr Documented by: NELLA Cefazolin Sodium/Dextrose (Ancef) 2 gm in 50 mls @ 100 mls/hr IV POSTOP [facility] Last Admin: 02/22/22 15:48 Dose: 100 mls/hr Documented by: NELLA Acetaminophen (Ofirmev) 1,000 mg in 100 mls @ 16.7 mls/hr IV .Q6H [facility] Last Admin: 02/22/22 16:20 Dose: 16.7 mls/hr Documented by: NELLA Metoclopramide HCl (Metoclopramide Hcl 10 Mg/2 Ml Vial) 10 mg IVPUSH Q6H PRN PRN Reason: Nausea Montelukast Sodium (Montelukast Sodium 10 Mg Tablet) 10 mg PO BEDTIME [facility] Omeprazole (Omeprazole 20 Mg Capsule.Dr) 20 mg PO DAILY [facility] Ondansetron HCl (Ondansetron Hcl 4 Mg/2 Ml Vial) 4 mg IVPUSH Q8H [facility] Oxcarbazepine (Oxcarbazepine 300 Mg Tablet) 600 mg PO BID [facility] Sodium Chloride (0.9 % Sodium Chloride Flush 3 Ml Syringe) 3 ml IVFLUSH QSHIFT [facility] Tizanidine HCl (Tizanidine Hcl 4 Mg Tablet) 4 mg PO TID PRN PRN Reason: for muscle spasm Labs CBC & Chem 7: 02/23/22 05:47 02/23/22 05:47 Labs: Laboratory Results - last 24 hr 02/22/22 02/22/22 02/22/22 06:36 12:43 15:52 Anion Gap 13 Estim Creat Clear Calc 95.6 Estimated GFR > 60 POC Glucose 88 115 Random Glucose 152 H Calcium 8.8 Procedures Date of Service Date of Service: 02/23/22 Progress Note: A&P Assessment and plan (1) S/P panniculectomy: Status: Acute Assessment and Plan: Doing well Dressings were changed. Flaps viable. No bleeding Discharge instructions were discussed and the patient will be discharged home (2) History of sleeve gastrectomy: Status: Acute (3) Excess skin: Status: Acute (4) Panniculitis: Status: Acute Fall Risk Details Current Medications: Current Medications Albuterol Sulfate (Albuterol Sulfate (0.083%) 2.5 Mg/3 Ml Vial.Neb) 2.5 mg INHALE Q6H PRN PRN Reason: Wheezing Buprenorphine/Naloxone (Buprenorphine/Naloxone 8/2 Mg Film) 2 film SUBLINGUAL DAILY [facility] Buspirone HCl (Buspirone Hcl 5 Mg Tablet) 15 mg PO BID [facility] Clonazepam (Clonazepam 1 Mg Tablet) 1 mg PO BID [facility] Famotidine (Famotidine/Pf 20 Mg/2 Ml Vial) 20 mg IVPUSH BID [facility] Fluticasone Propionate (Fluticasone Propionate Nasal 16 Gm [place]) 1 spray NO STRIL-B DAILY [facility] Fluticasone/Vilanterol (Fluticasone/Vilanterol 200/25 Blst.W.Dev) 1 puff INHALE RDAILY [facility] Lactated Ringer's (Lr) 1,000 mls @ 100 mls/hr IVCONT .Q10H [facility] Last Admin: 02/22/22 15:44 Dose: 100 mls/hr Documented by: Cefazolin Sodium/Dextrose (Ancef) 2 gm in 50 mls @ 100 mls/hr IV POSTOP [facility] Last Admin: 02/22/22 15:48 Dose: 100 mls/hr Documented by: Acetaminophen (Ofirmev) 1,000 mg in 100 mls @ 16.7 mls/hr IV .Q6H [facility] Last Admin: 02/22/22 16:20 Dose: 16.7 mls/hr Documented by: Metoclopramide HCl (Metoclopramide Hcl 10 Mg/2 Ml Vial) 10 mg IVPUSH Q6H PRN PRN Reason: Nausea Montelukast Sodium (Montelukast Sodium 10 Mg Tablet) 10 mg PO BEDTIME [facility] Omeprazole (Omeprazole 20 Mg Capsule.Dr) 20 mg PO DAILY [facility] Ondansetron HCl (Ondansetron Hcl 4 Mg/2 Ml Vial) 4 mg IVPUSH Q8H [facility] Oxcarbazepine (Oxcarbazepine 300 Mg Tablet) 600 mg PO BID [facility] Sodium Chloride (0.9 % Sodium Chloride Flush 3 Ml Syringe) 3 ml IVFLUSH QSHIFT [facility] Tizanidine HCl (Tizanidine Hcl 4 Mg Tablet) 4 mg PO TID PRN PRN Reason: for muscle spasm Time Spent With Patient Time: Total time spent is greater than 50% in coordination of care (as documented) at patient's floor/unit and/or counseling patient: Quality Stroke Does the patient have a stroke diagnosis?: No VTE Prior VTE?: No VTE Risk Level:: Surgical - moderate VTE Device Contraindication: N/A - Device Ordered VTE Drug Contraindication: Treatment Not Indicated
[2022-02-22] MEDS: TiZANidine HCL 4 MG TABLET PO (17:52)
[2022-02-22] MEDS: clonazePAM 1 MG TABLET PO (20:05)
[2022-02-22] MEDS: Montelukast Sodium 10 MG TABLET PO (20:05)
[2022-02-22] MEDS: OXcarbazepine 300 MG TABLET 600 MG PO (20:05)
[2022-02-22] MEDS: Famotidine/PF 20 MG/2 ML VIAL IVPUSH (20:05)
[2022-02-22] MEDS: busPIRone HCl 5 MG TABLET 15 MG PO (20:05)
[2022-02-23] MEDS: Lactated Ringers 1,000 ML 100 ML IVCONT (03:33)
[2022-02-23 04:00] VITALS: BP 118/66; PULSE 45; RESP 16; TEMP 36.7; O2SAT 96
[2022-02-23 05:55] LABS: MANUAL DIFF FLAG NO
[2022-02-23 06:16] LABS: Basophils Percent Auto 0.2 % (0-2); Eosinophils Percent Auto 0.5 % (0-4); Hematocrit 31.7 % (37.0-47.0); Hemoglobin 10.3 g/dl (12.0-16.0); Imm Gran Abs Auto 0.02 X10*3/uL (0.00-0.03); Imm Gran Pct Auto 0.3 % (0.0-0.4); Lymphocytes Absolute Auto 1.4 X10*3/uL (1.2-4.9); Lymphocytes Percent Auto 21.2 % (20-40); Mean Corpuscular HGB Conc 32.5 g/dl (31.0-35.0); Mean Corpuscular Hemoglobin 28.9 pg (27.0-33.0); Mean Platelet Volume 10.8 fL (9.4-12.3); Monocytes Absolute Auto 0.6 X10*3/uL (0.1-1.2); Monocytes Percent Auto 8.4 % (2-11); Neutrophils Absolute Auto 4.6 x10*3/uL (2.0-8.3); Neutrophils Percent Auto 69.4 % (45-73); Platelet Count 158 X10*3/uL (160-400); Red Blood Count 3.56 X10*6/uL (4.20-5.50); Red Cell Distribution Width 13.2 % (11.0-16.0); White Blood Count 6.6 X10*3/uL (4.8-10.8)
[2022-02-23 06:20] LABS: Anion Gap 13 (12-20); Blood Urea Nitrogen 13 mg/dL (9-16); Calcium 8.6 mg/dL (8.4-10.2); Carbon Dioxide 25 mmol/L (22-29); Chloride 104 mmol/L (96-108); Estimated Glomerular Filt Rate > 60; Glucose Random 99 mg/dL (60-115); Potassium 4.5 mmol/L (3.3-5.1); Sodium 137 mmol/L (135-145)
[2022-02-23 07:57] VITALS: BP 137/63; PULSE 45; RESP 18; TEMP 36.9; O2SAT 100
[2022-02-23] MEDS: Omeprazole 20 MG CAPSULE.DR PO (08:29)
[2022-02-23] MEDS: clonazePAM 1 MG TABLET PO (08:30)
[2022-02-23] MEDS: Famotidine/PF 20 MG/2 ML VIAL IVPUSH (08:30)
[2022-02-23] MEDS: OXcarbazepine 300 MG TABLET 600 MG PO (08:30)
[2022-02-23] MEDS: ondansetron HCL 4 MG/2 ML VIAL IVPUSH (08:30)
[2022-02-23] MEDS: busPIRone HCl 5 MG TABLET 15 MG PO (08:30)
[2022-02-23] MEDS: Buprenorphine/Naloxone 8/2 mg FILM 2 FILM SUBLINGUAL (08:30)
--- NOTE | 2022-02-23 09:16 | MHC.CM.PN ---
pt dcd home myriam coreas approved by [facility]
--- NOTE | 2022-02-23 09:24 | HO.POSTANES ---
Post Anesthesia Evaluation Post Anesthesia Evaluation Vital Signs: Vital Signs Temp Pulse Resp BP Pulse Ox 02/23/22 07:57 98.5 F 45 L 18 137/63 100 02/23/22 04:00 98.1 F 45 L 16 118/66 96 02/22/22 23:35 97.1 F 48 L 16 129/71 99 Anesthesia: General Endotracheal-GETA Mental Status: Awake Pain Control: Satisfactory Nausea/Vomiting: None Hydration: Adequate Anesthesia-Related Issues: No Anes. Related Issues
== END | disposition home health service (06) ==
LOC: HO.SSS 15:38 → HO.S3 02-23 08:10 → HO.SSS 11-22 03:14
PROVIDERS: Physician Assistant Surgical; PCP Internal Medicine; Visit Provider Surgery
PROC: 0JB80ZZ Excision of Abdomen Subcutaneous Tissue and Fascia, Open Approach (ICD-10-PCS; CPT 15830; principal; 2022-02-22 07:30)
DX: L98.7 Excessive and redundant skin and subcutaneous tissue (principal); M79.3 Panniculitis, unspecified; K91.2 Postsurgical malabsorption, not elsewhere classified; I95.9 Hypotension, unspecified; E16.2 Hypoglycemia, unspecified; E55.9 Vitamin D deficiency, unspecified; M05.9 Rheumatoid arthritis with rheumatoid factor, unspecified; M79.7 Fibromyalgia; Z98.84 Bariatric surgery status; Z90.3 Acquired absence of stomach [part of]; Z98.890 Other specified postprocedural states; J30.2 Other seasonal allergic rhinitis; Z91.02 Food additives allergy status; Z91.040 Latex allergy status; Z91.013 Allergy to seafood; Z91.018 Allergy to other foods; Z79.899 Other long term (current) drug therapy
CPT/HCPCS: 15830; 15847; 36415; 80048; 80053; 82947; 85014; 85018; 85025; 85610; 85730; 86850; 86900; 86901; 88304; 99024; C9399; J0131; J0690; J1100; J1170; J2250; J2405; J3010; J3370

== ENCOUNTER → 2022-03-01 14:44 | Outpatient (BNVA) | payer OTHER, SELFPAY | PROVIDERS: PCP Internal Medicine; Referring Provider Internal Medicine; Visit Provider Surgery | DX: Z48.817 Encounter for surgical aftercare following surgery on the skin and subcutaneous tissue (principal); Z71.3 Dietary counseling and surveillance; Z98.890 Other specified postprocedural states | CPT/HCPCS: 99212 ==

== ENCOUNTER → 2022-03-08 09:46 | Outpatient (BNVA) | payer OTHER, SELFPAY | PROVIDERS: PCP Internal Medicine; Referring Provider Internal Medicine; Visit Provider Physician Assistant Surgical | DX: Z48.89 Encounter for other specified surgical aftercare (principal) | CPT/HCPCS: 99212 ==

== ENCOUNTER → 2022-03-15 12:28 | Outpatient (BNVA) | payer OTHER, SELFPAY | PROVIDERS: PCP Internal Medicine; Referring Provider Internal Medicine; Visit Provider Physician Assistant Surgical | DX: Z98.890 Other specified postprocedural states (principal) | CPT/HCPCS: 99212 ==

== ENCOUNTER → 2022-03-21 10:16 | Outpatient (BNVA) | payer OTHER, SELFPAY | PROVIDERS: PCP Internal Medicine; Visit Provider Internal Medicine | DX: E16.2 Hypoglycemia, unspecified (principal); E55.9 Vitamin D deficiency, unspecified; R79.89 Other specified abnormal findings of blood chemistry; Z98.890 Other specified postprocedural states | CPT/HCPCS: 99212; Q3014 ==

== ENCOUNTER 2022-05-17 06:47 | Outpatient (REF) | payer OTHER, SELFPAY ==
[2022-05-17 08:39] LABS: Vitamin D 25-OH Total 22.5 ng/mL (>30)
[2022-05-17 09:21] LABS: Cortisol Random < 1.0 ug/dL
[2022-05-18 14:57] LABS: Adrenocorticotropic Hormone 8 pg/mL (6-50)
[2022-05-25 16:07] LABS: Dexamethasone 64 ng/dL
== END 2022-05-17 06:48 | disposition home or self-care (01) ==
LOC: HO.LAB 06:47
PROVIDERS: PCP Internal Medicine; Visit Provider Internal Medicine
DX: R79.89 Other specified abnormal findings of blood chemistry (principal); E55.9 Vitamin D deficiency, unspecified
CPT/HCPCS: 36415; 80299; 82024; 82306; 82533

== ENCOUNTER → 2022-05-20 09:19 | Outpatient (BNVA) | payer OTHER, SELFPAY | PROVIDERS: PCP Internal Medicine; Visit Provider Internal Medicine | DX: R79.89 Other specified abnormal findings of blood chemistry (principal); E16.2 Hypoglycemia, unspecified; E55.9 Vitamin D deficiency, unspecified | CPT/HCPCS: 99212 ==

== ENCOUNTER → 2022-05-25 12:39 | Outpatient (BNVA) | payer OTHER, SELFPAY | PROVIDERS: PCP Internal Medicine; Visit Provider Physician Assistant Surgical | DX: Z98.890 Other specified postprocedural states (principal) | CPT/HCPCS: 99212 ==

== ENCOUNTER 2022-06-02 07:18 | Outpatient (REF) | payer OTHER, SELFPAY ==
[2022-06-02 08:03] LABS: Anion Gap 11 (12-20); Blood Urea Nitrogen 16 mg/dL (9-16); Calcium 8.4 mg/dL (8.4-10.2); Carbon Dioxide 28 mmol/L (22-29); Chloride 105 mmol/L (96-108); Estimated Glomerular Filt Rate > 60; Glucose Random 93 mg/dL (60-115); Potassium 3.7 mmol/L (3.3-5.1); Sodium 140 mmol/L (135-145)
[2022-06-02 10:22] LABS: Cortisol Random 21.7 ug/dL
[2022-06-06 21:26] LABS: Adrenocorticotropic Hormone 77 pg/mL (6-50)
== END 2022-06-02 07:19 | disposition home or self-care (01) ==
LOC: HO.LAB 07:18
PROVIDERS: PCP Internal Medicine; Visit Provider Internal Medicine
DX: E16.2 Hypoglycemia, unspecified (principal); M79.7 Fibromyalgia; D64.9 Anemia, unspecified; M05.9 Rheumatoid arthritis with rheumatoid factor, unspecified; Z79.899 Other long term (current) drug therapy
CPT/HCPCS: 36415; 80048; 82024; 82533; 99212

== ENCOUNTER 2022-07-21 10:14 | Emergency (ER) | payer OTHER, SELFPAY ==
--- NOTE | ~2022-07-21 | XR_ITS ---
EXAMINATION: XR CHEST CLINICAL INFORMATION: Chest pain and shortness of breath COMPARISON: 06/01/2021 TECHNIQUE: Frontal view of the chest was obtained. FINDINGS: No significant abnormality is noted involving the heart, lungs, mediastinum, bony thorax or soft tissues. Surgical clips are noted beneath the left hemidiaphragm. XR/XR chest 1V IMPRESSION: Unremarkable examination.
[2022-07-21 10:41] VITALS: BP 153/93; PULSE 59; RESP 18; TEMP 36.9; O2SAT 100; BMI 26.7
--- NOTE | 2022-07-21 10:43 | ECG_ITS ---
Test Reason : chest pain Blood Pressure : / mmHG Vent. Rate : 057 BPM Atrial Rate : 057 BPM P-R Int : 148 ms QRS Dur : 116 ms QT Int : 390 ms P-R-T Axes : 011 008 014 degrees QTc Int : 379 ms Sinus bradycardia Incomplete right bundle branch block Borderline ECG When compared with ECG of 01-JUN-2021 12:27, Incomplete right bundle branch block is now Present Referred By: Generic ED Physician Electronically Signed By:ALPESH MANCINI
--- NOTE | 2022-07-21 10:45 | PC.NURSE ---
PT REFUSED COVID TEST
[2022-07-21 11:08] LABS: Glucose, Whole Blood 81 mg/dL (60-115)
--- NOTE | 2022-07-21 12:01 | ED.CHESTPAIN ---
HPI - Chest Pain General Chief Complaint: General Medical Stated Complaint: chest pain Time Seen by Provider: 07/21/22 12:00 Source: patient and staff interpreter Mode of arrival: ambulatory Limitations: no limitations History of Present Illness HPI narrative: 47 yo female with hx of bipolar, asthma, GERD, HTN, opiate dependence, anemia presents with c/o anxiety and chest pain/shortness of breath for 2 weeks since using nicotine vape. She states she feels like she can't breathe, relax, her chest is tight. She is very anxious. MD complaint: chest discomfort Onset (ago): week(s) (2) Timing of current episode: constant Prior episodes: Yes Onset: other (after using vape pen) Pain location: substernal Pain radiation: none Severity: mild Quality: tightness Relieving factors: nothing Exacerbating factors: movement and stress Associated symptoms: dyspnea and other (anxiety, feels like she has no strength) Treatment prior to arrival: none Related Data Home Medications Medication Instructions Recorded Confirmed albuterol sulfate 90 mcg/actuation 2 puff inhalation Q4-6H PRN 08/06/20 05/25/22 aerosol inhaler Wheezing buprenorphine 8 mg-naloxone 2 mg 2 film sublingual DAILY 08/06/20 06/02/22 sublingual film (Suboxone) fluticasone propionate 50 1 spray intranasal DAILY 08/06/20 06/02/22 mcg/actuation nasal spray,suspension [id number] fumarate 18 1 tab-cap PO BID 08/06/20 06/02/22 mg-FA 600 mcg-vit K 40 mcg capsule (Multi For Her) pantoprazole 40 mg tablet,delayed 40 mg PO DAILY 08/06/20 06/02/22 release mecobalamin (vitamin B12) 1,000 1,000 mcg PO DAILY 10/21/20 06/02/22 mcg chewable tablet buspirone 15 mg tablet 15 mg PO BID 03/02/21 06/02/22 vitamin E (dl, acetate) 45 mg (100 100 unit PO BEDTIME 03/02/21 05/25/22 unit) capsule blood-glucose meter #1 ea 03/03/21 05/25/22 glucose 4 gram chewable tablet 4 g PO DIRECTED hypoglycemia 03/03/21 05/25/22 lancets 33 gauge #100 ea 03/03/21 05/25/22 montelukast 10 mg tablet 10 mg PO QPM 03/03/21 06/02/22 thiamine HCl (vitamin B1) 50 mg 50 mg PO QPM 03/03/21 06/02/22 tablet oxcarbazepine 600 mg tablet 600 mg PO BID 05/07/21 06/02/22 albuterol sulfate 2.5 mg/3 mL 1 amp inhalation Q6H PRN Wheezing 12/01/21 06/02/22 (0.083 %) solution for nebulization ascorbic acid (vitamin C) 250 mg 1 tab PO TID 12/01/21 06/02/22 tablet (Vitamin C) clonazepam 1 mg tablet 1 mg PO BID 12/01/21 05/25/22 epinephrine 0.3 mg/0.3 mL IM DIRECTED 12/01/21 06/02/22 injection, auto-injector ferrous sulfate 325 mg (65 mg 325 mg PO BID 12/15/21 06/02/22 iron) tablet (Feosol) zolpidem 10 mg tablet (Ambien) 10 mg PO BEDTIME PRN 06/02/22 06/02/22 Previous Rx's Medication Instructions Recorded alcohol swabs (Alcohol Prep Pads) 1 pad topical DIRECTED #100 pad 10/06/20 tizanidine 4 mg tablet 4 mg PO TID PRN for muscle spasm 03/02/21 #90 tabs dicyclomine 10 mg capsule 10 mg PO .prn 30 days #30 caps 05/31/21 gabapentin 400 mg capsule 400 mg PO TID #90 caps 06/08/21 methotrexate (PF) 25 mg/0.5 mL 25 mg (0.5 mL) subcut QWEEK #2 mL 08/04/21 subcutaneous auto-injector (Rasuvo (PF)) Breo Ellipta 200 mcg-25 mcg/dose 1 ea inhalation DAILY #60 ea 01/10/22 powder for inhalation (fluticasone furoate-vilanterol) ergocalciferol (vitamin D2) 1,250 1,250 mcg PO 2XW 30 days #9 caps 05/20/22 mcg (50,000 unit) capsule acarbose 50 mg tablet 50 mg PO TID 30 days #90 tabs 06/23/22 cholecalciferol (vitamin D3) 50 50 mcg PO DAILY 30 days #30 caps 06/23/22 mcg (2,000 unit) capsule hydroxychloroquine 200 mg tablet 200 mg PO QAM #90 tabs 06/28/22 cyclobenzaprine 10 mg tablet 10 mg PO TID PRN muscle spasm #14 07/21/22 tabs prednisone 20 mg tablet 20 mg PO DAILY 5 days #5 tabs 07/21/22 Allergies Allergy/AdvReac Type Severity Reaction Status Date / Time latex [LATEX] Allergy Intermediate RASH Verified 06/02/22 07:51 ENVIROMENTAL Allergy Intermediate HAYFEVER Uncoded 06/02/22 07:51 Food Allergy Formula Allergy Unknown Anaphylaxis Uncoded 06/02/22 07:51 Onions Allergy Unknown Anaphylaxis Uncoded 06/02/22 07:51 Pt states no medication Allergy Unknown none Uncoded 06/02/22 07:51 allerg seasonal allergies Allergy Unknown Difficulty Uncoded 06/02/22 07:51 Breathing shellfish Allergy Unknown Anaphylaxis Uncoded 06/02/22 07:51 Review of Systems Review of Systems: Constitutional : No Fever, No Chills ENT/Mouth : No Hoarseness, No sore throat, No Rhinorrhea Eyes: No Redness, No Discharge, No Vision Changes Cardiovascular : pos Chest Pain, positive SOB, positive Dyspnea on Exertion, No Edema Respiratory : positive Cough, No Sputum, positive Wheezing, Gastrointestinal : No Nausea, No Vomiting, No Diarrhea, No abdominal Pain Genitourinary : No Dysuria, No Hematuria Musculoskeletal : No joint pain, No Myalgias Skin : No rash Neuro : pos Weakness, No Numbness, No Headache Psych : pos No anxiety, depression Heme/Lymph: No Bruising, No Bleeding Endocrine : No Polyuria, No Polydipsia All other systems reviewed and are negative [facility] Past Medical History Attestation statement: The following information was validated with the patient. Medical History Anemia Arthritis Asthma Carpal tunnel syndrome on both sides Cellulitis Depression Elevated cortisol level Epigastric abdominal pain Fibromyalgia History of bipolar disorder History of irregular heartbeat History of opioid abuse History of schizophrenia History of seizures Hypertension Hypoglycemia Kidney calculi Migraine Nausea Obstructive sleep apnea Panniculitis Postoperative nausea and vomiting Seropositive rheumatoid arthritis Sprain of ankle, right Surgical History H/O abdominoplasty H/O section H/O colonoscopy H/O esophagogastroduodenoscopy H/O gastric bypass H/O hemorrhoidectomy H/O tubal ligation History of back surgery History of bilateral breast reduction surgery History of blepharoplasty History of endometrial ablation History of knee surgery S/P brachioplasty S/P panniculectomy S/P thighplasty Family History Family History Father Diabetes HTN (hypertension) Cancer Heart disease Mother Cancer Diabetes HTN (hypertension) Social History Social History Household Members: Children Household Members Other:: daughter Are you a primary resident care technician to a significant other at home: No Do you presently have visiting nurse or other home services: Yes ([employer]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 Oriented X3. No acute distress. Eyes: Pupils equal, round and reactive to light. ENT: Pharynx normal. Neck: Normal inspection. Neck supple. CVS: Normal heart rate and rhythm. Pulses normal. Respiratory: No respiratory distress. Breath sounds mild exp wheezes upper lobes Chest: diffuse chest wall ttp Abdomen: Soft and nontender. Skin: Skin warm and dry. Normal skin color. Normal skin turgor. Extremities: No lower extremity edema. No calf ttp Neuro: Oriented X 3. No motor deficit. No sensory deficit. Course Course Course Narrative: negative CXR, trop negative COVID negative stable for DC MDM - Chest Pain MDM Narrative Medical decision making narrative: 48 yo female with hx of HTN, DM, HLD, stroke yesterday here with c/o asthma, wheezing, chest wall pain and feeling overall not well since using vape pen. She is PERC Negative. Will need labs, troponin x 1, CXR, PO ativan for anxiety. albuterol treatment. Dispo per results and findings. Lab Data Result diagrams: 07/21/22 12:32 07/21/22 12:32 Labs: Lab Results 07/21/22 07/21/22 07/21/22 Range/Units 11:05 11:56 12:32 WBC 4.0 L (4.8-10.8) X10*3/uL RBC 4.44 D (4.20-5.50) X10*6/uL Hgb 13.7 D (12.0-16.0) g/dl Hct 40.0 D (37.0-47.0) % MCV 90.1 (80.0-98.0) fL MCH 30.9 (27.0-33.0) pg MCHC 34.3 (31.0-35.0) g/dl RDW 12.4 (11.0-16.0) % Plt Count 193 (160-400) X10*3/uL MPV 10.2 (9.4-12.3) fL Immature Gran % (Auto) 0.2 (0.0-0.4) % Neut % (Auto) 70.5 (45-73) % Lymph % (Auto) 21.9 (20-40) % [place] % (Auto) 6.0 (2-11) % Eos % (Auto) 0.7 (0-4) % Baso % (Auto) 0.7 (0-2) % Lymph # (Auto) 0.9 L (1.2-4.9) X10*3/uL [place] # (Auto) 0.2 (0.1-1.2) X10*3/uL Eos # (Auto) 0.0 (0.0-0.4) X10*3/uL Baso # (Auto) 0.0 (0.0-0.2) X10*3/uL Abs Immat Gran (auto) 0.01 (0.00-0.03) X10*3/uL Absolute Neuts (auto) 2.8 (2.0-8.3) x10*3/uL Absolute Nucleated RBC 0.000 (0.0-0.012) X10*3/uL Nucleated RBC % (auto) 0.0 (0.0-0.2) /100WBC Sodium (135-145) mmol/L Potassium (3.3-5.1) mmol/L Chloride (96-108) mmol/L Carbon Dioxide (22-29) mmol/L Anion Gap (12-20) BUN (9-16) mg/dL Creatinine (0.5-1.4) mg/dL Estim Creat Clear Calc Estimated GFR POC Glucose 81 (60-115) mg/dL Random Glucose (60-115) mg/dL Calcium (8.4-10.2) mg/dL Troponin I High Sens (<3.5-17.0) ng/L COVID-19 (YVONNE) Negative (Negative) COVID-19 Clin Com See Note 07/21/22 07/21/22 Range/Units 12:32 12:32 WBC (4.8-10.8) X10*3/uL RBC (4.20-5.50) X10*6/uL Hgb (12.0-16.0) g/dl Hct (37.0-47.0) % MCV (80.0-98.0) fL MCH (27.0-33.0) pg MCHC (31.0-35.0) g/dl RDW (11.0-16.0) % Plt Count (160-400) X10*3/uL MPV (9.4-12.3) fL Immature Gran % (Auto) (0.0-0.4) % Neut % (Auto) (45-73) % Lymph % (Auto) (20-40) % [place] % (Auto) (2-11) % Eos % (Auto) (0-4) % Baso % (Auto) (0-2) % Lymph # (Auto) (1.2-4.9) X10*3/uL [place] # (Auto) (0.1-1.2) X10*3/uL Eos # (Auto) (0.0-0.4) X10*3/uL Baso # (Auto) (0.0-0.2) X10*3/uL Abs Immat Gran (auto) (0.00-0.03) X10*3/uL Absolute Neuts (auto) (2.0-8.3) x10*3/uL Absolute Nucleated RBC (0.0-0.012) X10*3/uL Nucleated RBC % (auto) (0.0-0.2) /100WBC Sodium 141 (135-145) mmol/L Potassium 4.5 D (3.3-5.1) mmol/L Chloride 103 (96-108) mmol/L Carbon Dioxide 28 (22-29) mmol/L Anion Gap 15 (12-20) BUN 19 H (9-16) mg/dL Creatinine 0.72 (0.5-1.4) mg/dL Estim Creat Clear Calc 87.7 Estimated GFR > 60 POC Glucose (60-115) mg/dL Random Glucose 96 (60-115) mg/dL Calcium 9.3 D (8.4-10.2) mg/dL Troponin I High Sens < 3.5 (<3.5-17.0) ng/L COVID-19 (YVONNE) (Negative) COVID-19 Clin Com ECG Data ECG #1: Attestation: I personally reviewed and interpreted this ECG as follows: ECG interpretation date: 07/21/22 ECG interpretation time: 13:05 Interpretation: Rate: 57 Rhythm: sinus bradycardia [place]: normal Normal P waves. Normal DANNIELLE. incomplete RBBB ST T wave : normal no GIOVANNI qTC:normal prior studies: RBBB noted 2017 The study has been interpreted contemporaneously by me. . Discharge Plan Discharge Clinical Impression: Anxiety, Atypical chest pain Patient Disposition: Home, Self-Care Instructions: Chest Pain (ED), Anxiety (ED) Additional Instructions: return to ED for any worsening symptoms or concerns EKG Chest xray - COVID test normal labs normal Prescriptions: New cyclobenzaprine 10 mg tablet 10 mg PO TID PRN (Reason: muscle spasm) Qty: 14 0RF prednisone 20 mg tablet 20 mg PO DAILY 5 Days Qty: 5 0RF No Action alcohol swabs [Alcohol Prep Pads] Pads, Medicated 1 pad topical DIRECTED Qty: 100 5RF tizanidine 4 mg tablet 4 mg PO TID PRN (Reason: for muscle spasm) Qty: 90 5RF dicyclomine 10 mg capsule 10 mg PO .prn 30 Days Qty: 30 1RF gabapentin 400 mg capsule 400 mg PO TID Qty: 90 5RF Rasuvo (PF) 25 mg/0.5 mL auto-injector 25 mg subcut QWEEK Qty: 2 3RF Breo Ellipta 200-25 mcg/dose blister with device 1 ea inhalation DAILY Qty: 60 0RF acarbose 50 mg tablet 50 mg PO TID 30 Days Qty: 90 3RF cholecalciferol (vitamin D3) 50 mcg (2,000 unit) capsule 50 mcg PO DAILY 30 Days Qty: 30 11RF hydroxychloroquine 200 mg tablet 200 mg PO QAM Qty: 90 1RF albuterol sulfate 2.5 mg /3 mL (0.083 %) solution for nebulization 1 amp inhalation Q6H PRN (Reason: Wheezing) clonazepam 1 mg tablet 1 mg PO BID Rx Instructions: 1 in am 2 in pm epinephrine 0.3 mg/0.3 mL auto-injector IM DIRECTED ascorbic acid (vitamin C) [Vitamin C] 250 mg tablet 1 tab PO TID pantoprazole 40 mg tablet,delayed release (DR/EC) 40 mg PO DAILY Multi For Her 18 mg iron-600 mcg-40 mcg capsule 1 tab-cap PO BID fluticasone propionate 50 mcg/actuation spray,suspension 1 spray intranasal DAILY Rx Instructions: administer into each nostril buprenorphine-naloxone [Suboxone] 8-2 mg film 2 film sublingual DAILY Rx Instructions: place 1 strip/tab under (each) side of tongue albuterol sulfate 90 mcg/actuation HFA aerosol inhaler 2 puff inhalation Q4-6H PRN (Reason: Wheezing) vitamin E (dl, acetate) 100 unit capsule 100 unit PO BEDTIME buspirone 15 mg tablet 15 mg PO BID oxcarbazepine 600 mg tablet 600 mg PO BID mecobalamin (vitamin B12) 1,000 mcg tablet,chewable 1,000 mcg PO DAILY (DME) lancets 33 gauge misc See Rx Instructions Not Applicable BID Qty: 100 Rx Instructions: As directed thiamine HCl (vitamin B1) 50 mg tablet 50 mg PO QPM montelukast 10 mg tablet 10 mg PO QPM glucose 4 gram tablet,chewable 4 g PO DIRECTED (DME) blood-glucose meter Kit See Rx Instructions Not Applicable BID Qty: 1 Rx Instructions: As directed ferrous sulfate [Feosol] 325 mg (65 mg iron) tablet 325 mg PO BID ergocalciferol (vitamin D2) 1,250 mcg (50,000 unit) capsule 1,250 mcg PO 2XW 30 Days Qty: 9 11RF zolpidem [Ambien] 10 mg tablet 10 mg PO BEDTIME PRN Referrals: Kyra Driscoll MD [Primary Care Provider] - 2 days (if not better) Stand Alone Forms: Work/School Release
[2022-07-21] MEDS: LORazepam 1 MG TABLET PO (12:18)
[2022-07-21 12:37] LABS: MANUAL DIFF FLAG NO
[2022-07-21 12:38] LABS: COVID-19 Test Negative (Negative); IDNOW Serial# 9DD0AD1C
[2022-07-21 12:42] LABS: Basophils Percent Auto 0.7 % (0-2); Eosinophils Percent Auto 0.7 % (0-4); Hemoglobin 13.7 g/dl (12.0-16.0); Imm Gran Abs Auto 0.01 X10*3/uL (0.00-0.03); Imm Gran Pct Auto 0.2 % (0.0-0.4); Lymphocytes Absolute Auto 0.9 X10*3/uL (1.2-4.9); Lymphocytes Percent Auto 21.9 % (20-40); Mean Corpuscular HGB Conc 34.3 g/dl (31.0-35.0); Mean Corpuscular Hemoglobin 30.9 pg (27.0-33.0); Mean Corpuscular Volume 90.1 fL (80.0-98.0); Mean Platelet Volume 10.2 fL (9.4-12.3); Monocytes Absolute Auto 0.2 X10*3/uL (0.1-1.2); Neutrophils Absolute Auto 2.8 x10*3/uL (2.0-8.3); Neutrophils Percent Auto 70.5 % (45-73); Platelet Count 193 X10*3/uL (160-400); Red Blood Count 4.44 X10*6/uL (4.20-5.50); Red Cell Distribution Width 12.4 % (11.0-16.0)
[2022-07-21] MEDS: Albuterol Sulfate (0.083%) 2.5 MG/3 ML VIAL.NEB INHALE (12:42)
[2022-07-21 12:43] VITALS: PULSE 59; RESP 18; O2SAT 99
[2022-07-21] MEDS: Acetaminophen 325 MG TABLET 650 MG PO (12:49)
[2022-07-21 12:58] LABS: Troponin-I High Sensitivity < 3.5 ng/L (<3.5-17.0)
[2022-07-21 13:01] LABS: Anion Gap 15 (12-20); Blood Urea Nitrogen 19 mg/dL (9-16); Calcium 9.3 mg/dL (8.4-10.2); Carbon Dioxide 28 mmol/L (22-29); Chloride 103 mmol/L (96-108); Creatinine Clr Calc Pharmacy 87.7; Estimated Glomerular Filt Rate > 60; Glucose Random 96 mg/dL (60-115); Potassium 4.5 mmol/L (3.3-5.1); Sodium 141 mmol/L (135-145)
== END 2022-07-21 13:22 | disposition home or self-care (01) ==
PROVIDERS: Emergency Provider Emergency Medicine; PCP Internal Medicine
DX: R07.89 Other chest pain (principal); R06.02 Shortness of breath; F41.1 Generalized anxiety disorder; F43.0 Acute stress reaction; Z20.822 Contact with and (suspected) exposure to COVID-19; Z79.899 Other long term (current) drug therapy
CPT/HCPCS: 36415; 71045; 80048; 82947; 84484; 85025; 87635; 93005; 94640; 99284

== ENCOUNTER 2022-08-19 08:32 | Outpatient (REF) | payer OTHER, SELFPAY ==
--- NOTE | ~2022-08-19 | XR_ITS ---
EXAMINATION: XR HAND, BILATERAL XR THORACIC SPINE CLINICAL INFORMATION: Rheumatoid arthritis with rheumatoid factor. COMPARISON: None TECHNIQUE: 3 views each hand. 3 views thoracic spine. FINDINGS: LEFT HAND: There is no visible acute fracture, dislocation or subluxation seen. The joint spaces are maintained normal. RIGHT HAND: There is no visible acute fracture, dislocation or subluxation seen. The joint spaces are normal. The soft tissues are normal. THORACIC SPINE 3 VIEWS: There is normal thoracic kyphosis. The vertebral heights, alignment and disc heights are normal. No visible acute fracture, dislocation or subluxation seen. No aggressive lytic or sclerotic process seen. There is mild ventral spondylosis. The paravertebral soft tissues are normal. XR/XR hand RT min 3V IMPRESSION: Unremarkable bilateral hand exam. No visible acute fracture, dislocation or subluxation seen in the dorsal spine.
--- NOTE | ~2022-08-19 | XR_ITS ---
EXAMINATION: XR HAND, BILATERAL XR THORACIC SPINE CLINICAL INFORMATION: Rheumatoid arthritis with rheumatoid factor. COMPARISON: None TECHNIQUE: 3 views each hand. 3 views thoracic spine. FINDINGS: LEFT HAND: There is no visible acute fracture, dislocation or subluxation seen. The joint spaces are maintained normal. RIGHT HAND: There is no visible acute fracture, dislocation or subluxation seen. The joint spaces are normal. The soft tissues are normal. THORACIC SPINE 3 VIEWS: There is normal thoracic kyphosis. The vertebral heights, alignment and disc heights are normal. No visible acute fracture, dislocation or subluxation seen. No aggressive lytic or sclerotic process seen. There is mild ventral spondylosis. The paravertebral soft tissues are normal. XR/XR thoracic spine 2V IMPRESSION: Unremarkable bilateral hand exam. No visible acute fracture, dislocation or subluxation seen in the dorsal spine.
--- NOTE | ~2022-08-19 | XR_ITS ---
EXAMINATION: XR HAND, BILATERAL XR THORACIC SPINE CLINICAL INFORMATION: Rheumatoid arthritis with rheumatoid factor. COMPARISON: None TECHNIQUE: 3 views each hand. 3 views thoracic spine. FINDINGS: LEFT HAND: There is no visible acute fracture, dislocation or subluxation seen. The joint spaces are maintained normal. RIGHT HAND: There is no visible acute fracture, dislocation or subluxation seen. The joint spaces are normal. The soft tissues are normal. THORACIC SPINE 3 VIEWS: There is normal thoracic kyphosis. The vertebral heights, alignment and disc heights are normal. No visible acute fracture, dislocation or subluxation seen. No aggressive lytic or sclerotic process seen. There is mild ventral spondylosis. The paravertebral soft tissues are normal. XR/XR hand LT min 3V IMPRESSION: Unremarkable bilateral hand exam. No visible acute fracture, dislocation or subluxation seen in the dorsal spine.
[2022-08-19 09:22] LABS: Anion Gap 13 (12-20); Blood Urea Nitrogen 16 mg/dL (9-16); Calcium 8.8 mg/dL (8.4-10.2); Carbon Dioxide 29 mmol/L (22-29); Chloride 103 mmol/L (96-108); Estimated Glomerular Filt Rate > 60; Glucose Fasting 93 mg/dL (60-99); Phosphorus 3.5 mg/dL (2.7-4.5); Sodium 141 mmol/L (135-145)
[2022-08-19 09:48] LABS: Vitamin D 25-OH Total 19.4 ng/mL (>30)
[2022-08-21 15:42] LABS: Calcium (PTHI) 8.9 mg/dL (8.6-10.2); PTHI 60 pg/mL (16-77)
== END 2022-08-19 08:33 | disposition home or self-care (01) ==
LOC: HO.XRAY 08:32
PROVIDERS: Absent Provider Internal Medicine; PCP Internal Medicine; Visit Provider Internal Medicine Rheumatology
DX: E55.9 Vitamin D deficiency, unspecified (principal); M05.9 Rheumatoid arthritis with rheumatoid factor, unspecified
CPT/HCPCS: 36415; 72070; 73130; 80048; 82040; 82306; 83970; 84100

== ENCOUNTER → 2022-09-13 10:41 | Outpatient (BNVA) | payer OTHER, SELFPAY | PROVIDERS: PCP Internal Medicine; Visit Provider Nurse Practitioner Family | DX: R06.83 Snoring (principal); F51.8 Other sleep disorders not due to a substance or known physiological condition; R40.0 Somnolence | CPT/HCPCS: 99202 ==

== ENCOUNTER 2022-09-16 13:07 | Outpatient (REF) | payer OTHER, SELFPAY ==
--- NOTE | ~2022-09-16 | MM_ITS ---
EXAMINATION: MM SCREENING DIGITAL BREAST TOMOSYNTHESIS, BILATERAL CLINICAL INFORMATION: Screening. Asymptomatic. History reduction mammoplasty, 2002. COMPARISON: Mammography: 08/03/2018, 04/18/2017 TECHNIQUE: Digital breast tomosynthesis is performed in both the craniocaudal and mediolateral oblique views along with computer-aided detection (CAD). Synthesized 2D images are generated from the tomosynthesis. FINDINGS: There are scattered areas of fibroglandular density (ACR BI-RADS breast composition Category b). There are no significant masses, abnormal calcifications, or other abnormalities. Again, there is minor scarring and some scattered benign calcifications anterior breasts and skin calcifications consistent with the reduction mammoplasty. There is no interval architectural abnormality or developing density or abnormal calcifications. The axilla are unremarkable. MM/MM tomosynthesis screening BI IMPRESSION: No mammographic evidence of malignancy. ASSESSMENT: BI-RADS 2: Benign RECOMMENDATION: Routine annual mammography screening. This patient's information was entered into a reminder system with a target due date for their next mammogram.
== END 2022-09-16 13:08 | disposition home or self-care (01) ==
LOC: HO.MAMMO 13:07
PROVIDERS: Visit Provider Internal Medicine
DX: Z12.31 Encounter for screening mammogram for malignant neoplasm of breast (principal)
CPT/HCPCS: 77063; 77067

== ENCOUNTER 2022-09-30 08:10 | Outpatient (REF) | payer OTHER, SELFPAY ==
--- NOTE | ~2022-09-30 | XR_ITS ---
EXAMINATION: XR CHEST CLINICAL INFORMATION: Preprocedural exam COMPARISON: None TECHNIQUE: 2 views of the chest were obtained. FINDINGS: The cardiac and mediastinal contours are normal. The lungs are clear. No pleural effusion or pneumothorax. Normal bony structures. Evidence of previous surgery under the left hemidiaphragm. XR/XR chest 2V IMPRESSION: No evidence for acute disease in the chest.
== END 2022-09-30 08:11 | disposition home or self-care (01) ==
LOC: HO.XRAY 08:10
PROVIDERS: PCP Internal Medicine; Visit Provider General Practice
DX: Z01.818 Encounter for other preprocedural examination (principal)
CPT/HCPCS: 71046

== ENCOUNTER → 2022-10-19 14:16 | Outpatient (BNVA) | payer OTHER, SELFPAY | PROVIDERS: PCP Internal Medicine; Visit Provider Student in an Organized Health Care Education/Training Program | DX: M05.9 Rheumatoid arthritis with rheumatoid factor, unspecified (principal); M79.7 Fibromyalgia; Z79.899 Other long term (current) drug therapy | CPT/HCPCS: 99212 ==

== ENCOUNTER 2022-10-24 09:20 | Outpatient (REF) | payer OTHER, SELFPAY ==
[2022-10-24 09:35] LABS: MANUAL DIFF FLAG NO
[2022-10-24 10:29] LABS: Basophils Percent Auto 0.7 % (0-2); Eosinophils Absolute Auto 0.1 X10*3/uL (0.0-0.4); Eosinophils Percent Auto 2.1 % (0-4); Hematocrit 40.2 % (37.0-47.0); Hemoglobin 12.9 g/dl (12.0-16.0); Imm Gran Abs Auto 0.01 X10*3/uL (0.00-0.03); Imm Gran Pct Auto 0.2 % (0.0-0.4); Lymphocytes Absolute Auto 1.2 X10*3/uL (1.2-4.9); Lymphocytes Percent Auto 26.7 % (20-40); Mean Corpuscular HGB Conc 32.1 g/dl (31.0-35.0); Mean Corpuscular Hemoglobin 30.4 pg (27.0-33.0); Mean Corpuscular Volume 94.8 fL (80.0-98.0); Monocytes Absolute Auto 0.3 X10*3/uL (0.1-1.2); Monocytes Percent Auto 7.2 % (2-11); Neutrophils Absolute Auto 2.7 x10*3/uL (2.0-8.3); Neutrophils Percent Auto 63.1 % (45-73); Platelet Count 186 X10*3/uL (160-400); Red Blood Count 4.24 X10*6/uL (4.20-5.50); Red Cell Distribution Width 12.2 % (11.0-16.0); White Blood Count 4.3 X10*3/uL (4.8-10.8)
[2022-10-24 10:53] LABS: Alanine Aminotransferase 8 U/L (0-31); Albumin Level 4.3 g/dL (3.5-5.0); Alkaline Phosphatase 87 U/L (39-117); Anion Gap 12 (12-20); Aspartate Amino Transferase 19 U/L (5-31); Bilirubin Total 0.4 mg/dL (0.0-1.0); Blood Urea Nitrogen 13 mg/dL (9-16); C Reactive Protein 0.15 mg/dL (< or = 0.50); Calcium 8.9 mg/dL (8.4-10.2); Carbon Dioxide 29 mmol/L (22-29); Chloride 103 mmol/L (96-108); Estimated Glomerular Filt Rate > 60; Glucose Random 89 mg/dL (60-115); Potassium 3.8 mmol/L (3.3-5.1); Sodium 140 mmol/L (135-145); Total Protein 7.2 g/dL (6.5-8.0)
[2022-10-24 11:33] LABS: Erythrocyte Sedimentation Rate 9 MM/HR (0-20)
== END 2022-10-24 09:21 | disposition home or self-care (01) ==
LOC: HO.LAB 09:20
PROVIDERS: PCP Internal Medicine; Visit Provider Student in an Organized Health Care Education/Training Program
DX: Z79.899 Other long term (current) drug therapy (principal)
CPT/HCPCS: 36415; 80053; 85025; 85652; 86140

== ENCOUNTER → 2022-11-13 19:30 | Outpatient (REF) | payer OTHER, SELFPAY | LOC: HO.SL 19:30 | PROVIDERS: PCP Internal Medicine; Visit Provider Nurse Practitioner Family | DX: R06.83 Snoring (principal); R40.0 Somnolence; F51.8 Other sleep disorders not due to a substance or known physiological condition | CPT/HCPCS: 95810 ==

== ENCOUNTER 2022-11-21 09:10 | Outpatient (REF) | payer OTHER, SELFPAY ==
[2022-11-21 09:53] LABS: Estimated Average Glucose 100 mg/dL; Hemoglobin A1c % 5.1 %
[2022-11-21 10:23] LABS: Alanine Aminotransferase 10 U/L (0-31); Alkaline Phosphatase 92 U/L (39-117); Anion Gap 11 (12-20); Aspartate Amino Transferase 26 U/L (5-31); Bilirubin Total 0.3 mg/dL (0.0-1.0); Blood Urea Nitrogen 19 mg/dL (9-16); Calcium 9.1 mg/dL (8.4-10.2); Carbon Dioxide 30 mmol/L (22-29); Chloride 104 mmol/L (96-108); Estimated Glomerular Filt Rate > 60; Glucose Random 62 mg/dL (60-115); Potassium 3.8 mmol/L (3.3-5.1); Sodium 141 mmol/L (135-145); Total Protein 7.1 g/dL (6.5-8.0)
[2022-11-21 10:41] LABS: Vitamin D 25-OH Total 15.6 ng/mL (>30)
== END 2022-11-21 09:11 | disposition home or self-care (01) ==
LOC: HO.LAB 09:10
PROVIDERS: PCP Internal Medicine; Visit Provider Internal Medicine
DX: E16.2 Hypoglycemia, unspecified (principal); E55.9 Vitamin D deficiency, unspecified; Z79.899 Other long term (current) drug therapy
CPT/HCPCS: 36415; 80053; 82306; 82947; 83036; 99212

== ENCOUNTER → 2022-11-23 13:39 | Outpatient (BNVA) | payer OTHER, SELFPAY | PROVIDERS: PCP Internal Medicine; Visit Provider Physician Assistant Surgical | DX: E66.3 Overweight (principal); Z68.29 Body mass index [BMI] 29.0-29.9, adult | CPT/HCPCS: 99212 ==

== ENCOUNTER → 2022-12-15 12:32 | Outpatient (BNVA) | payer OTHER, SELFPAY | PROVIDERS: PCP Internal Medicine; Visit Provider Student in an Organized Health Care Education/Training Program | DX: M05.9 Rheumatoid arthritis with rheumatoid factor, unspecified (principal); M79.7 Fibromyalgia; M70.61 Trochanteric bursitis, right hip; M70.62 Trochanteric bursitis, left hip; Z79.899 Other long term (current) drug therapy | CPT/HCPCS: 20610; 99212 ==

== ENCOUNTER 2022-12-22 10:24 | Emergency (ER) | payer OTHER, SELFPAY ==
--- NOTE | ~2022-12-22 | XR_ITS ---
EXAMINATION: XR CHEST CLINICAL INFORMATION: Chest pain. COMPARISON: 09/30/2022 chest radiographs TECHNIQUE: 2 views of the chest were obtained. FINDINGS: No significant abnormality is noted involving the heart, lungs, mediastinum, bony thorax or soft tissues. XR/XR chest 2V IMPRESSION: No acute cardiopulmonary process.
[2022-12-22 10:39] VITALS: BP 125/78; BP 138/80; PULSE 64; PULSE 69; RESP 16; TEMP 36.9; O2SAT 97; O2SAT 98; BMI 28.3
[2022-12-22 10:56] LABS: Glucose, Whole Blood 93 mg/dL (60-115)
[2022-12-22 11:51] LABS: Hematocrit 39.9 % (37.0-47.0); Hemoglobin 13.4 g/dl (12.0-16.0); Mean Corpuscular HGB Conc 33.6 g/dl (31.0-35.0); Mean Corpuscular Hemoglobin 30.7 pg (27.0-33.0); Mean Corpuscular Volume 91.3 fL (80.0-98.0); Mean Platelet Volume 9.4 fL (9.4-12.3); Platelet Count 241 X10*3/uL (160-400); Red Blood Count 4.37 X10*6/uL (4.20-5.50); Red Cell Distribution Width 12.5 % (11.0-16.0); White Blood Count 7.6 X10*3/uL (4.8-10.8)
[2022-12-22 12:17] LABS: Anion Gap 15 (12-20); Blood Urea Nitrogen 20 mg/dL (9-16); Calcium 8.8 mg/dL (8.4-10.2); Carbon Dioxide 26 mmol/L (22-29); Chloride 104 mmol/L (96-108); Creatinine Clr Calc Pharmacy 86.6; Estimated Glomerular Filt Rate > 60; Glucose Random 97 mg/dL (60-115); Potassium 4.8 mmol/L (3.3-5.1); Sodium 140 mmol/L (135-145)
--- NOTE | 2022-12-22 12:34 | ED_ITS ---
HPI - General Adult General Chief complaint: General Medical Stated complaint: CP,BLE PAIN PER EMS Time Seen by Provider: 12/22/22 11:37 Source: patient Mode of arrival: ambulatory Limitations: no limitations History of Present Illness HPI narrative: 47-year-old female presents with constellation of symptoms that include chest pain, myalgias, foot cramping. Symptoms started last night with foot cramping. She describes that is severe in nature. Did not generalized. She does not have any active cramping at this time. She does describe some chest discomfort. It is nonexertional in nature. An 8/10. Worse with deep inspiration. She has no history of PE or DVT. She has no lower extremity edema. She has no recent surgery or immobilization. There is no clear relieving features at this time. He has had no fevers, chills, cough, mucus production, nausea, vomiting, diarrhea, constipation. Patient describes her symptoms currently is severe. She still continues to feel lightheaded. She denies any dizziness/vertiginous symptoms. Patient denies any history of these symptoms in the past. She does describe a history of low blood sugar that goes back a year and half. She is post gastric bypass several years ago. Related Data Home Medications Medication Instructions Recorded Confirmed albuterol sulfate 90 mcg/actuation 2 puff inhalation Q4-6H PRN 08/06/20 12/15/22 aerosol inhaler Wheezing buprenorphine 8 mg-naloxone 2 mg 2 film sublingual DAILY 08/06/20 12/15/22 sublingual film (Suboxone) fluticasone propionate 50 1 spray intranasal DAILY 08/06/20 12/15/22 mcg/actuation nasal spray,suspension [id number] fumarate 18 1 tab-cap PO BID 08/06/20 12/15/22 mg-FA 600 mcg-vit K 40 mcg capsule (Multi For Her) pantoprazole 40 mg tablet,delayed 40 mg PO DAILY 08/06/20 12/15/22 release buspirone 15 mg tablet 15 mg PO BID 03/02/21 12/15/22 vitamin E (dl, acetate) 45 mg (100 100 unit PO BEDTIME 03/02/21 12/15/22 unit) capsule glucose 4 gram chewable tablet 4 g PO DIRECTED hypoglycemia 03/03/21 12/15/22 lancets 33 gauge #100 ea 03/03/21 12/15/22 montelukast 10 mg tablet 10 mg PO QPM 03/03/21 12/15/22 thiamine HCl (vitamin B1) 50 mg 50 mg PO QPM 03/03/21 12/15/22 tablet oxcarbazepine 600 mg tablet 600 mg PO BID 05/07/21 12/15/22 albuterol sulfate 2.5 mg/3 mL 1 amp inhalation Q6H PRN Wheezing 12/01/21 12/15/22 (0.083 %) solution for nebulization ascorbic acid (vitamin C) 250 mg 1 tab PO TID 12/01/21 12/15/22 tablet (Vitamin C) epinephrine 0.3 mg/0.3 mL IM DIRECTED 12/01/21 12/15/22 injection, auto-injector ferrous sulfate 325 mg (65 mg 325 mg PO BID 12/15/21 12/15/22 iron) tablet (Feosol) clonazepam 1 mg tablet 1 mg PO BID 09/13/22 12/15/22 diphenhydramine HCl 25 mg tablet 0 mg PO 09/13/22 12/15/22 (Colleen-Dryl) fexofenadine 180 mg tablet 180 mg PO DAILY 09/13/22 12/15/22 (Allergy Relief (fexofenadine)) ketotifen fumarate 0.025 % (0.035 1 drp ophthalmic (eye) BID 09/13/22 12/15/22 %) eye drops ondansetron 4 mg disintegrating 4 mg PO Q12H 09/13/22 12/15/22 tablet cyanocobalamin (vitamin B-12) 1,000 mcg PO DAILY 10/19/22 12/15/22 1,000 mcg tablet docusate sodium 100 mg capsule 100 mg PO DAILY 10/19/22 12/15/22 mirtazapine 30 mg tablet 30 mg PO BEDTIME 10/19/22 12/15/22 multivitamin 1 tab PO 10/19/22 12/15/22 sumatriptan succinate 25 mg tablet 25 mg PO DAILY PRN 10/19/22 12/15/22 meclizine 25 mg tablet mg PO PRN 12/15/22 12/15/22 Previous Rx's Medication Instructions Recorded alcohol swabs (Alcohol Prep Pads) 1 pad topical DIRECTED #100 pad 10/06/20 tizanidine 4 mg tablet 4 mg PO TID PRN for muscle spasm 03/02/21 #90 tabs dicyclomine 10 mg capsule 10 mg PO .prn 30 days #30 caps 05/31/21 Breo Ellipta 200 mcg-25 mcg/dose 1 ea inhalation DAILY #60 ea 01/10/22 powder for inhalation (fluticasone furoate-vilanterol) ergocalciferol (vitamin D2) 1,250 1,250 mcg PO 2XW 30 days #9 caps 05/20/22 mcg (50,000 unit) capsule cholecalciferol (vitamin D3) 50 50 mcg PO DAILY 30 days #30 caps 06/23/22 mcg (2,000 unit) capsule cyclobenzaprine 10 mg tablet 10 mg PO TID PRN muscle spasm #14 07/21/22 tabs acarbose 50 mg tablet 50 mg PO TID 30 days #90 tabs 10/11/22 folic acid 1 mg tablet 1 mg PO DAILY #90 tabs 10/19/22 methotrexate (PF) 25 mg/0.5 mL 25 mg (0.5 mL) subcut QWEEK #2 mL 10/19/22 subcutaneous auto-injector (Rasuvo (PF)) blood-glucose meter #1 ea 11/21/22 flash glucose scanning reader #1 ea 11/24/22 (FreeStyle Cindy 2 Leipsic) flash glucose sensor (FreeStyle #2 ea 11/24/22 Cindy 2 Sensor kit) hydroxychloroquine 200 mg tablet 200 mg PO QAM #90 tabs 12/09/22 gabapentin 400 mg capsule 400 mg PO .COMPLEX #90 caps 12/15/22 Allergies Allergy/AdvReac Type Severity Reaction Status Date / Time latex [LATEX] Allergy Intermediate RASH Verified 12/15/22 12:44 ENVIROMENTAL Allergy Intermediate HAYFEVER Uncoded 12/15/22 12:44 Food Allergy Formula Allergy Unknown Anaphylaxis Uncoded 12/15/22 12:44 Onions Allergy Unknown Anaphylaxis Uncoded 12/15/22 12:44 seasonal allergies Allergy Unknown Difficulty Uncoded 12/15/22 12:44 Breathing shellfish Allergy Unknown Anaphylaxis Uncoded 12/15/22 12:44 Review of Systems Review of Systems: CONSTITUTIONAL: Denies weight loss, fever and chills. HEENT: Denies changes in vision and hearing. RESPIRATORY: Denies SOB and cough. CV: Denies palpitations no CP. GI: Denies abdominal pain, nausea, vomiting and diarrhea. : Denies dysuria and urinary frequency. MSK: Denies myalgia and joint pain. SKIN: Denies rash and pruritus. NEUROLOGICAL: Denies headache and syncope. PSYCHIATRIC: Denies recent changes in mood. Denies anxiety and depression. All other ROS are negative unless in HPI PMFSH Past Medical History Medical History Anemia Arthritis Asthma Carpal tunnel syndrome on both sides Cellulitis Depression Elevated cortisol level Epigastric abdominal pain Fibromyalgia History of bipolar disorder History of irregular heartbeat History of opioid abuse History of schizophrenia History of seizures Hypertension Hypoglycemia Hypoglycemia Kidney calculi Migraine Nausea Obstructive sleep apnea Panniculitis Postoperative nausea and vomiting Seropositive rheumatoid arthritis Sprain of ankle, right Surgical History H/O abdominoplasty H/O section H/O colonoscopy H/O esophagogastroduodenoscopy H/O gastric bypass H/O hemorrhoidectomy H/O tubal ligation History of back surgery History of bilateral breast reduction surgery History of blepharoplasty History of endometrial ablation History of knee surgery S/P brachioplasty S/P panniculectomy S/P thighplasty Family History Family History Father Diabetes HTN (hypertension) Cancer Heart disease Mother Cancer Diabetes HTN (hypertension) Social History Social History Household Members: Children Household Members Other:: daughter Are you a primary resident care director to a significant other at home: No Do you presently have 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) Alcohol intake: never Patient Tobacco Use Status: Never used Tobacco Smoked in Last 30 Days: No Use of substances other than those prescribed or required for medical reasons: No Substance Use Type: Marijuana Advance Directives: No Patient : No service: No Current occupational status: retired 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 Physical Exam ED Vital Signs: Vital Signs - 24 hr 12/22/22 10:39 12/22/22 13:10 12/22/22 13:57 Temperature 98.5 F 98.4 F Pulse Rate 64 69 78 Respiratory Rate 16 16 Blood Pressure 125/78 131/79 122/75 Pulse Oximetry 98 Oxygen Delivery Method Room Air 12/22/22 13:58 12/22/22 13:59 12/22/22 14:25 Temperature 97.8 F Pulse Rate 82 94 76 Respiratory Rate 16 Blood Pressure 130/83 138/94 H 124/73 Pulse Oximetry 99 Oxygen Delivery Method Room Air BMI result Body Mass Index 28.3 GEN: Well developed, no acute distress, alert, oriented HEENT: Normocephalic, atraumatic, normal external ears, nose appears normal, no oropharyngeal edema or exudates Eyes: Normal to appearance Neck: Supple, no lymphadenopathy Respiratory: Talks in complete sentences, no respiratory distress, clear to auscultation bilaterally Cardiovascular: Regular rate and rhythm, no murmurs rubs or gallops Abdomen: Soft, nontender, nondistended, no guarding, no rebound Back: No CVA tenderness Extremities: No clubbing cyanosis or edema Neurologic: No focal neurologic deficits, cranial nerves 2-12 intact, strength is 5/5 bilaterally, gait normal Skin: No rash Course Course Course Narrative: 47-year-old female presents with a constellation symptoms including cramping, chest pain discomfort, lightheadedness. Examination was benign. Possible diagnosis could include electrolyte abnormality, anemia, dehydration, cardiac dysrhythmia. Will have EKG, laboratory analysis. Will also order chest x-ray make sure there is no anatomical reason for symptoms. Will try a GI cocktail and famotidine with IV fluids. Will check orthostatic vital signs. Disposition pending full workup for completion Reevaluation(s) Reevaluation #1: Patient is feeling slightly better. Will repeat troponin. This is negative, her chest discomfort is certainly unlikely to be acute coronary syndrome or cardiac in nature given the atypical story. Etiology of her cramping sensation is unclear at this time. If her workup is negative, I would recommend discharge with follow-up with her primary care provider which I discussed with the patient. Time: 14:48 Reevaluation #2: Second troponin actually decreased. Since her symptoms are atypical, doubt this represents acute coronary syndrome. She can be discharged at this time. Discussed all results and discharge planning with patient. Time: 15:37 Medications Administered Discontinued Medications Generic Name Dose Route Start Last Admin Trade Name Freq PRN Reason Stop Dose Admin Acetaminophen 975 mg 12/22/22 13:03 12/22/22 13:07 Acetaminophen 325 Mg Tablet PO 12/22/22 13:04 Not Given ONCE ONE Acetaminophen 975 mg 12/22/22 13:03 12/22/22 13:08 Acetaminophen 325 Mg Tablet PO 12/22/22 13:04 975 mg ONCE ONE Administration Al Hydroxide/Mg Hydroxide 30 ml 12/22/22 12:33 12/22/22 13:01 Magnesium Hydrox/Alum Hydrox 30 Ml Oral.Susp PO 12/22/22 12:34 Not Given ONCE ONE Belladonna Alkaloids/Phenobarbital 10 ml 12/22/22 12:33 12/22/22 13:01 Phenobarb/Hyoscy/Atropine/Scop 10 Ml Elixir PO 12/22/22 12:34 Not Given ONCE ONE Cyclobenzaprine HCl 10 mg 12/22/22 14:47 12/22/22 15:10 Cyclobenzaprine Hcl 10 Mg Tablet PO 12/22/22 14:48 10 mg ONCE ONE Administration Famotidine 20 mg 12/22/22 12:33 12/22/22 13:08 Famotidine/Pf 20 Mg/2 Ml Vial IVPUSH 12/22/22 12:34 20 mg ONCE ONE Administration Gabapentin 300 mg 12/22/22 14:47 12/22/22 15:09 Gabapentin 300 Mg Capsule PO 12/22/22 14:48 300 mg ONCE ONE Administration Lidocaine HCl 15 ml 12/22/22 12:33 12/22/22 13:01 Lidocaine Hcl Viscous 2 % 15 Ml Solution MUCOUS MEM 12/22/22 12:34 Not Given ONCE ONE Medical Decision Making Medical Decision Making MDM Narrative: 47-year-old female presents with a constellation symptoms including cramping, chest pain discomfort, lightheadedness. Examination was benign. Possible diagnosis could include electrolyte abnormality, anemia, dehydration, cardiac dysrhythmia. Will have EKG, laboratory analysis. Will also order chest x-ray make sure there is no anatomical reason for symptoms. Will try a GI cocktail and famotidine with IV fluids. Will check orthostatic vital signs. Disposition pending full workup for completion Differential Diagnosis Differential Diagnoses: The differential diagnosis associated with the presentation includes (Dehydration, electrolyte abnormality, anemia, cardiac, cardiac dysrhythmia, orthostatic hypertension, vasovagal) Admission/Observation Consideration of admission/observation: Escalation of care including admission/observation considered Lab Data MDM Lab Attestation statement: I reviewed the patient's lab results. 12/22/22 11:46 12/22/22 11:46 Labs: Lab Results 12/22/22 12/22/22 12/22/22 Range/Units 10:52 11:46 11:46 WBC 7.6 (4.8-10.8) X10*3/uL RBC 4.37 (4.20-5.50) X10*6/uL Hgb 13.4 (12.0-16.0) g/dl Hct 39.9 (37.0-47.0) % MCV 91.3 (80.0-98.0) fL MCH 30.7 (27.0-33.0) pg MCHC 33.6 (31.0-35.0) g/dl RDW 12.5 (11.0-16.0) % Plt Count 241 D (160-400) X10*3/uL MPV 9.4 (9.4-12.3) fL Absolute Nucleated RBC 0.000 (0.0-0.012) X10*3/uL Nucleated RBC % (auto) 0.0 (0.0-0.2) /100WBC Sodium 140 (135-145) mmol/L Potassium 4.8 D (3.3-5.1) mmol/L Chloride 104 (96-108) mmol/L Carbon Dioxide 26 (22-29) mmol/L Anion Gap 15 (12-20) BUN 20 H (9-16) mg/dL Creatinine 0.75 (0.5-1.4) mg/dL Estim Creat Clear Calc 86.6 Estimated GFR > 60 POC Glucose 93 (60-115) mg/dL Random Glucose 97 (60-115) mg/dL Calcium 8.8 (8.4-10.2) mg/dL Troponin I High Sens (<3.5-17.0) ng/L 12/22/22 12/22/22 Range/Units 12:51 15:06 WBC (4.8-10.8) X10*3/uL RBC (4.20-5.50) X10*6/uL Hgb (12.0-16.0) g/dl Hct (37.0-47.0) % MCV (80.0-98.0) fL MCH (27.0-33.0) pg MCHC (31.0-35.0) g/dl RDW (11.0-16.0) % Plt Count (160-400) X10*3/uL MPV (9.4-12.3) fL Absolute Nucleated RBC (0.0-0.012) X10*3/uL Nucleated RBC % (auto) (0.0-0.2) /100WBC Sodium (135-145) mmol/L Potassium (3.3-5.1) mmol/L Chloride (96-108) mmol/L Carbon Dioxide (22-29) mmol/L Anion Gap (12-20) BUN (9-16) mg/dL Creatinine (0.5-1.4) mg/dL Estim Creat Clear Calc Estimated GFR POC Glucose (60-115) mg/dL Random Glucose (60-115) mg/dL Calcium (8.4-10.2) mg/dL Troponin I High Sens 7.5 4.5 (<3.5-17.0) ng/L Independent Interpretation I performed an independent interpretation of an: EKG (Normal sinus rhythm heart rate 75, incomplete right bundle branch block, no acute ST elevations depressions, no significant changes compared to 07/21/2022) and Plain X-Ray (Chest x-ray no acute cardiopulmonary disease) External Record Review External record reviewed: Office record (Office note 07/23/2021 endocrinology visit 11/21/2022) Prescription Management I considered prescription management with: Other (Dextrose) Chronic Conditions Patient?s care impacted by: Other (Hypoglycemia) Discharge Plan Discharge Clinical Impression: Hypoglycemia, Light-headedness, Atypical chest pain, Cramping of feet Patient Disposition: Home, Self-Care Instructions: Noncardiac Chest Pain (ED), Non-diabetic Hypoglycemia (ED), Lightheadedness (ED), Leg Cramps (ED) Prescriptions: No Action alcohol swabs [Alcohol Prep Pads] Pads, Medicated 1 pad topical DIRECTED Qty: 100 5RF tizanidine 4 mg tablet 4 mg PO TID PRN (Reason: for muscle spasm) Qty: 90 5RF dicyclomine 10 mg capsule 10 mg PO .prn 30 Days Qty: 30 1RF Breo Ellipta 200-25 mcg/dose blister with device 1 ea inhalation DAILY Qty: 60 0RF cholecalciferol (vitamin D3) 50 mcg (2,000 unit) capsule 50 mcg PO DAILY 30 Days Qty: 30 11RF acarbose 50 mg tablet 50 mg PO TID 30 Days Qty: 90 3RF (DME) blood-glucose meter Kit See Rx Instructions Not Applicable BID Qty: 1 0RF Rx Instructions: As directed (DME) FreeStyle Cindy 2 [place] Misc See Rx Instructions .ROUTE .MEDSUPPLY Qty: 1 0RF Rx Instructions: As directed (DME) FreeStyle Cindy 2 Sensor Kit See Rx Instructions .ROUTE .MEDSUPPLY Qty: 2 11RF Rx Instructions: Once every 14 days hydroxychloroquine 200 mg tablet 200 mg PO QAM Qty: 90 1RF cyclobenzaprine 10 mg tablet 10 mg PO TID PRN (Reason: muscle spasm) Qty: 14 0RF albuterol sulfate 2.5 mg /3 mL (0.083 %) solution for nebulization 1 amp inhalation Q6H PRN (Reason: Wheezing) epinephrine 0.3 mg/0.3 mL auto-injector IM DIRECTED ascorbic acid (vitamin C) [Vitamin C] 250 mg tablet 1 tab PO TID clonazepam 1 mg tablet 1 mg PO BID Rx Instructions: 1 in am 2 in pm pantoprazole 40 mg tablet,delayed release (DR/EC) 40 mg PO DAILY Multi For Her 18 mg iron-600 mcg-40 mcg capsule 1 tab-cap PO BID fluticasone propionate 50 mcg/actuation spray,suspension 1 spray intranasal DAILY Rx Instructions: administer into each nostril buprenorphine-naloxone [Suboxone] 8-2 mg film 2 film sublingual DAILY Rx Instructions: place 1 strip/tab under (each) side of tongue albuterol sulfate 90 mcg/actuation HFA aerosol inhaler 2 puff inhalation Q4-6H PRN (Reason: Wheezing) vitamin E (dl, acetate) 100 unit capsule 100 unit PO BEDTIME buspirone 15 mg tablet 15 mg PO BID oxcarbazepine 600 mg tablet 600 mg PO BID (DME) lancets 33 gauge misc See Rx Instructions Not Applicable BID Qty: 100 Rx Instructions: As directed thiamine HCl (vitamin B1) 50 mg tablet 50 mg PO QPM montelukast 10 mg tablet 10 mg PO QPM glucose 4 gram tablet,chewable 4 g PO DIRECTED ferrous sulfate [Feosol] 325 mg (65 mg iron) tablet 325 mg PO BID mirtazapine 30 mg tablet 30 mg PO BEDTIME cyanocobalamin (vitamin B-12) 1,000 mcg tablet 1,000 mcg PO DAILY multivitamin Tablet 1 tab PO Rasuvo (PF) 25 mg/0.5 mL auto-injector 25 mg subcut QWEEK Qty: 2 3RF folic acid 1 mg tablet 1 mg PO DAILY Qty: 90 1RF meclizine 25 mg tablet PO PRN fexofenadine [Allergy Relief (fexofenadine)] 180 mg tablet 180 mg PO DAILY ondansetron 4 mg tablet,disintegrating 4 mg PO Q12H ketotifen fumarate 0.025 % (0.035 %) drops 1 drp ophthalmic (eye) BID diphenhydramine HCl [Colleen-Dryl] 25 mg tablet 0 mg PO sumatriptan succinate 25 mg tablet 25 mg PO DAILY PRN docusate sodium 100 mg capsule 100 mg PO DAILY ergocalciferol (vitamin D2) 1,250 mcg (50,000 unit) capsule 1,250 mcg PO 2XW 30 Days Qty: 9 11RF gabapentin 400 mg capsule 400 mg PO .COMPLEX Qty: 90 1RF Rx Instructions: Take 1 capsule nightly for 1 week then 1 capsule twice daily for 1 week then 1 capsule 3 times a day Referrals: Kyra Driscoll MD [Primary Care Provider] - 3 days
--- NOTE | 2022-12-22 12:44 | ECG_ITS ---
Test Reason : CP Blood Pressure : / mmHG Vent. Rate : 075 BPM Atrial Rate : 075 BPM P-R Int : 144 ms QRS Dur : 108 ms QT Int : 370 ms P-R-T Axes : 039 006 009 degrees QTc Int : 413 ms Normal sinus rhythm Incomplete right bundle branch block Borderline ECG When compared with ECG of 21-JUL-2022 10:46, No significant change was found Referred By: Marcos Healy Electronically Signed By:Livan Villa
[2022-12-22] MEDS: Famotidine/PF 20 MG/2 ML VIAL IVPUSH (13:08)
[2022-12-22] MEDS: Acetaminophen 325 MG TABLET 975 MG PO (13:08)
[2022-12-22 13:10] VITALS: BP 131/79; PULSE 69; RESP 16; TEMP 36.9
[2022-12-22 13:22] LABS: Troponin-I High Sensitivity 7.5 ng/L (<3.5-17.0)
[2022-12-22 13:57] VITALS: BP 122/75; PULSE 78
[2022-12-22 13:58] VITALS: BP 130/83; PULSE 82
[2022-12-22 13:59] VITALS: BP 138/94; PULSE 94
[2022-12-22 14:25] VITALS: BP 124/73; PULSE 76; RESP 16; TEMP 36.6; O2SAT 99
[2022-12-22] MEDS: Gabapentin 300 MG CAPSULE PO (15:09)
[2022-12-22] MEDS: Cyclobenzaprine HCl 10 MG TABLET PO (15:10)
[2022-12-22 15:29] LABS: Troponin-I High Sensitivity 4.5 ng/L (<3.5-17.0)
== END 2022-12-22 15:47 | disposition home or self-care (01) ==
PROVIDERS: Emergency Provider Emergency Medicine; PCP Internal Medicine
DX: R07.89 Other chest pain (principal); R25.2 Cramp and spasm; R42 Dizziness and giddiness; Z79.899 Other long term (current) drug therapy
CPT/HCPCS: 36415; 71046; 80048; 82947; 84484; 85027; 93005; 96374; 99284; 99285

== ENCOUNTER → 2023-02-21 13:35 | Outpatient (BNVA) | payer OTHER, SELFPAY | PROVIDERS: PCP Internal Medicine; Visit Provider Physician Assistant Surgical | DX: Z90.3 Acquired absence of stomach [part of] (principal) | CPT/HCPCS: 99212 ==

== ENCOUNTER 2023-03-01 12:11 | Outpatient (REF) | payer OTHER, SELFPAY ==
[2023-03-01 12:27] LABS: MANUAL DIFF FLAG NO
[2023-03-01 12:55] LABS: Basophils Percent Auto 0.5 % (0-2); Eosinophils Absolute Auto 0.1 X10*3/uL (0.0-0.4); Hematocrit 40.5 % (37.0-47.0); Hemoglobin 13.3 g/dl (12.0-16.0); Imm Gran Abs Auto 0.01 X10*3/uL (0.00-0.03); Imm Gran Pct Auto 0.3 % (0.0-0.4); Lymphocytes Absolute Auto 1.1 X10*3/uL (1.2-4.9); Lymphocytes Percent Auto 26.8 % (20-40); Mean Corpuscular HGB Conc 32.8 g/dl (31.0-35.0); Mean Corpuscular Hemoglobin 30.8 pg (27.0-33.0); Mean Corpuscular Volume 93.8 fL (80.0-98.0); Mean Platelet Volume 9.6 fL (9.4-12.3); Monocytes Absolute Auto 0.2 X10*3/uL (0.1-1.2); Monocytes Percent Auto 4.8 % (2-11); Neutrophils Absolute Auto 2.6 x10*3/uL (2.0-8.3); Neutrophils Percent Auto 65.6 % (45-73); Platelet Count 250 X10*3/uL (160-400); Red Blood Count 4.32 X10*6/uL (4.20-5.50); Red Cell Distribution Width 13.2 % (11.0-16.0)
[2023-03-01 13:37] LABS: Erythrocyte Sedimentation Rate 18 MM/HR (0-20)
[2023-03-01 13:42] LABS: Alanine Aminotransferase 8 U/L (0-31); Albumin Level 4.3 g/dL (3.5-5.0); Alkaline Phosphatase 82 U/L (39-117); Anion Gap 14 (12-20); Aspartate Amino Transferase 25 U/L (5-31); Bilirubin Total 0.3 mg/dL (0.0-1.0); Blood Urea Nitrogen 11 mg/dL (9-16); Calcium 9.1 mg/dL (8.4-10.2); Carbon Dioxide 26 mmol/L (22-29); Chloride 106 mmol/L (96-108); Cholesterol 171 mg/dL; Estimated Glomerular Filt Rate > 60; Glucose Random 133 mg/dL (60-115); HDL Cholesterol 76 mg/dL; Iron 89 mcg/dL (30-160); LDL Cholesterol Calculated 90 mg/dl; Percent Iron Saturation 31 % (15-50); Potassium 3.9 mmol/L (3.3-5.1); Sodium 142 mmol/L (135-145); Total Iron Binding Capacity 284 mcg/dL (228-428); Total Protein 7.3 g/dL (6.5-8.0); Triglycerides 29 mg/dL; Unsaturated Iron Binding 195 ug/dL
[2023-03-01 14:13] LABS: Folate 11.7 ng/mL (> or = 4.0); Vitamin B12 884 pg/mL (200-900)
[2023-03-03 23:53] LABS: TS Negative Control Passed; TS Panel A 0; TS Panel B 0; TS Positive Control Passed; TSpotTB Negative (Negative)
[2023-03-05 21:09] LABS: Zinc 53 mcg/dL (60-130)
[2023-03-09 16:44] LABS: Vitamin B1 52 nmol/L (8-30)
[2023-03-10 00:34] LABS: Vitamin A 26 mcg/dL (38-98)
== END 2023-03-01 12:12 | disposition home or self-care (01) ==
LOC: HO.LAB 12:11
PROVIDERS: Physician Assistant Surgical; PCP Internal Medicine; Visit Provider Student in an Organized Health Care Education/Training Program
DX: Z11.7 Encounter for testing for latent tuberculosis infection (principal); Z79.899 Other long term (current) drug therapy; Z90.3 Acquired absence of stomach [part of]
CPT/HCPCS: 36415; 80053; 80061; 82306; 82607; 82746; 83540; 84425; 84590; 84630; 85025; 85652; 86140; 86481

== ENCOUNTER → 2023-03-09 14:54 | Outpatient (BNVA) | payer OTHER, SELFPAY | PROVIDERS: PCP Internal Medicine; Visit Provider Student in an Organized Health Care Education/Training Program | DX: M05.9 Rheumatoid arthritis with rheumatoid factor, unspecified (principal); M79.7 Fibromyalgia; M70.61 Trochanteric bursitis, right hip; M70.62 Trochanteric bursitis, left hip; Z79.899 Other long term (current) drug therapy | CPT/HCPCS: 99212 ==

== ENCOUNTER 2025-02-25 13:55 | Outpatient (REF) | payer OTHER, SELFPAY ==
--- OUTSIDE RECORDS SUMMARY | 2025-02-25 16:40 | XMS_ITS | Encounter Summary ---
Author Organization [employer] Address [address] [place] [address] Care Team Providers Care Dispatcher Chief Oil Name Role Phone Kyra Driscoll MD Primary Care Provide r Elizabeth Dean NP Primary Care Provider [phone] Reason for Visit * Reason Comments Med Refill Encounter Details Date Type Department Care Team ([facility] st Contact Info) Description 02/25/2023 Refill [facility] MEDICINE [address], [place] [phone] Porfirio Saldivar MD [address] [place], [place] [phone] Uncomplicated opioid dependence (CMS/HCC) Social History Tobacco Use Types Packs/Day Years Used Date Smoking Tobacco: Never Passive Smoke Exposure: Never Smokeless Tobacco: Never Alcohol Use Standard Drinks/Week Comments Never 0 (1 standard drink = 0.6 oz pur e alcohol) Depression Answer Date Recorded Patient Health Questionnaire-2 Score 0 12/02/2022 Comments Unknown Sex and Gender Information Value Date Recorded Sex Assigned at Female 09/05/2022 10:16 AM EDT Legal Sex Female 10:16 AM EDT Gender Identity Female 09/05/2022 10:16 AM EDT Sexual Orientation Choose not to disclose 2021 10:16 AM EDT COVID-19 Exposure Response Date Recorded In the last 10 days, have yo u been in contact with someone who was confirmed or suspected to have Coronavirus/COVID-19? No / Unsure 02/27/2023 1:08 PM EDT documented as of this encounter Miscellaneous Notes * Telephone Encounter - Noemy Pina RN - 03/07/2023 9:53 AM EDT Pt has been having elevated BP states it is due to pain from fibromyalgia. Denies CP- Message sent to team nurses as a FYI- Today 152 documented in this encounter Plan of Treatment Upcoming Encounters Date Type Department Care Team (Late st Contact Info) Description 03/03/2025 2:30 PM EDT Office Visit [address] [id number] Elizabeth Dean NP [address] [place] [id number] 03/04/2025 10:30 AM EDT Clinical Support [address] [address] Julia Lu RN documented as of this encounter Visit Diagnoses Diagnosis Uncomplicated opioid dependence (CMS/HCC) documented in this encounter Care Teams Dispatcher Chief Oil Relationship Specialty Start Date End Date Kyra Driscoll MD [address] [place] [phone] PCP - General Family Medicine 06/03/19 03/03/24 Elizabeth Dean NP [address] [place] [phone] PCP - General Family Medicine 02/25/25 documented as of this encounter
--- OUTSIDE RECORDS SUMMARY | 2025-02-25 16:40 | XMS_ITS | Clinical Summary ---
Author Organization [employer] Address [address] [place] [address] Care Team Providers Care Information Security Consultant Name Role Phone Kyra Driscoll MD Primary Care Provide r Surgical History Surgery Date Site/Laterality Comments TUBAL LIGATION 2006 Bilateral PROCEDURE: HISTORICAL TUBAL LIGATION OTHER SURGICAL HISTORY 2006 PROCEDURE: [place] HYSTEROSCOPY ENDOMETRIAL ABLATION GASTRIC BYPASS 2003 PROCEDURE: GASTRIC BYPASS FOR OBESIT; COMMENT: revision 2019 BREAST REDUCTION 2002 PROCEDURE: HI BREAST REDUCTION OTHER SURGICAL HISTORY 2009 PROCEDURE: ---- HEMORRHOIDS ---- CARPAL TUNNEL RELEASE 2010 PROCEDURE: HI NEUROPLASTY &/TRANSPOS MEDIAN NRV CARPAL TUNNE KNEE ARTHROPLASTY Right PROCEDURE: HI ARTHRS KNEE ABRASION ARTHRP/PROCESS CONTROL ENGINEER DRLG/MICROFX BACK SURGERY PROCEDURE: HISTORICAL BACK SURGERY; COMMENT: lower back ? 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 ([facility] V24, [facility] V28) DX:Opioid depend w opioid-in maxime psychotic disorder w delusions ([facility]) Back pain DX:Back pain 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 Gastric bypass status for obesity DX:Gastric bypass status for obesity Knee pain DX:Knee pain Back pain DX:Back pain Systolic murmur DX:Systolic murm ur Seizure disorder ([facility] V2 4, [facility] V28) DX:Seizure disorder ([facility]) Bilateral hearing loss DX:Bilate ral hearing loss Bronchitis DX:Bronchitis Migraine DX:Migraine Scalp psoriasis DX:Scalp psorias is Bipolar 1 disorder (CMS/[facility] V24, [facility]/HCC V28) DX:Bipolar 1 disorder (HCC) Family History Medical History Relation Name Comments Breast cancer Aunt maternal Cervical cancer Maternal Grandmother Relation Name Status Comments Aunt Maternal Grandmother Social History Tobacco Use Types Packs/Day Years Used Date Smoking Tobacco: Never Smokeless Tobacco: Never Alcohol Use Standard Drinks/Week Comments No 0 (1 standard drink = 0.6 oz pur e alcohol) Comments Unknown Sex and Gender Information Value Date Recorded Sex Assigned at Not on file Legal Sex Female 8:59 AM EST Gender Identity Not on file Sexual Orientation Not on file Obstetrics History Last Filed Vital Signs Vital Sign Reading Time Taken Comments Blood Pressure - - Pulse 67 02/01/2022 1:46 PM EDT Temperature - - Respiratory Rate - - Oxygen Saturation - - Inhaled Oxygen Concentration - - Weight 83.9 kg (185 lb) 02/01/2022 1:46 PM EDT Height 160 cm (5' 3 ) 02/01/2022 1:46 PM EDT Body Mass Index 32.77 02/01/2022 1:46 PM EDT Plan of Treatment Health Maintenance Due Date Last Done Comments Breast Cancer Screening 1973 COVID-19 Vaccine (#1) 1978 DTaP,Tdap,and Td Vaccines (1 - Tdap) 1992 Hepatitis B Vaccines (1 of 3 - 19+ 3-dose series) 1992 Colorectal Cancer Screening: Colonoscopy 10/09/2022 Depression Screening 10/09/2022 HIV Screening 10/09/2022 Hepatitis C Screening 10/09/2022 Social Influencers of Health Screening 10/09/2022 Cervical Cancer Screening: P ap Smear 03/19/2023 03/19/2020 Pneumococcal Vaccine: 50+ Ye ars (1 of 1 - PCV) 2023 Zoster Vaccines (1 of 2) 2023 Influenza Vaccine (Season Ended) 2025 HIB Vaccines Aged Out No longer eligi ble based on patient's age to complete this topic HPV Vaccines Aged Out No longer eligi ble based on patient's age to complete this topic Hepatitis A Vaccines Aged Out No long er eligible based on patient's age to complete this topic IPV Vaccines Aged Out No longer eligi ble based on patient's age to complete this topic MMR Vaccines Aged Out No longer eligi ble based on patient's age to complete this topic Meningococcal ACWY Vaccine Aged Out N o longer eligible based on patient's age to complete this topic Meningococcal B Vaccine Aged Out No l onger eligible based on patient's age to complete this topic Pneumococcal Vaccine: Pediat rics (0 to 5 Years) and At-Risk Patients (6 to 64 Years) Aged Out No longer eligi ble based on patient's age to complete this topic RSV Immunization Patients Un ludin 20 months Aged Out No longer eligible b ased on patient's age to complete this topic Varicella Vaccines Aged Out No longer eligible based on patient's age to complete this topic Procedures Procedure Name Priority Date/Time Associated Diagnosis Comments PAP SMEAR Routine 03/19/2020 from Last 3 Months or Most Recently Relevant to Health Maintenance Results * Pap smear (03/19/2020) 03/19/2020 Narrative HISTORICAL TESTING LAB RESULTING AGENCY - 03/27/2020 12:15 PM EDT [id number] THINPREP PAP, IMAGED: NEGATIVE FOR SQUAMOUS INTRAEPITHELIAL LESION AND MALIGNANCY . REACTIVE CELLULAR CHANGES. RPATEEK WORRELL , CT(ASCP) (CASE SCREENED 03 25 2020) SABRINA ALAS M.D. , PATHOLOGIST (CASE ELECTRONICALLY SIGNED 03 26 2020) RESULT OF APTIMA HIGH RISK HPV ASSAY: HIGH RISK HPV: ??NEGATIVE (SEROTYPES 16,18,31,33,35,39,45,51,52,56,58,59,66,68) COMPLETED ON 2020-03-23 ADEQUACY: SATISFACTORY ENDOCERVICAL/TRANSFORMATION ZONE COMPONENT PRESENT. SOURCE: THINPREP PAP HPV ANY DX: ??REFLEX 16 AND 18, CERVICAL, IMAGED CLINICAL INFORMATION: HPV ANY DIAGNOSIS. PAP HX NEG, Z12.4. us Isma Casey MD LAB CYTOLOGY ORDERABLES Final Result HISTORICAL TESTING LAB RESULTING AGENCY from Last 3 Months or Most Recently Relevant to Health Maintenance Care Teams Information Security Consultant Relationship Specialty Start Date End Date Kyra Driscoll MD [address] [phone] PCP - General Internal Medicine 08/13/21
--- OUTSIDE RECORDS SUMMARY | 2025-02-25 16:40 | XMS_ITS | Encounter Summary ---
Author Organization [email or web address] Address [address] [facility] [address] [place] [address] Care Team Providers Care Physical Medicine Teacher Name Role Phone Kyra Driscoll MD Primary Care Provide r Elizabeth Dean NP Primary Care Provider [phone] Reason for Visit * Reason Comments Med Refill Encounter Details Date Type Department Care Team ([facility] Contact Info) Description 02/06/2023 Refill [facility] [address] [place] [address] Rachel Cash FNP [address] [place] [address] IFG (impaired fasting glucose); Uncomplicated opioid dependence (CMS/HCC) Social History Tobacco [...] suspected to have Coronavirus/COVID-19? No / Unsure 02/09/2023 10:51 AM EDT documented as of this encounter Plan of Treatment Upcoming Encounters Date Type Department Care Team ([facility] Contact Info) Description 03/03/2025 2:30 PM EDT Office Visit [address] [phone] Elizabeth Dean NP [address] [place] [address] 03/04/2025 10:30 AM EDT Clinical Support [address] [address] Julia Lu RN documented as of this encounter Visit Diagnoses Diagnosis IFG (impaired fasting glucose) Uncomplicated opioid dependence (CMS/HCC) documented in this encounter Care Teams Physical Medicine Teacher Relationship Specialty Start Date End Date Kyra Driscoll MD [address] [place] [id number] PCP - General Family Medicine 06/03/19 03/03/24 Elizabeth Dean NP [address] [place] [phone] PCP - General Family Medicine 02/25/25 documented as of this encounter
--- OUTSIDE RECORDS SUMMARY | 2025-02-25 16:40 | XMS_ITS | Encounter Summary ---
Author Organization [employer] [facility] Address [address] [place] [address] [address] [address] Care Team Providers Care Environmental Program Manager Name Role Phone Kyra Driscoll MD Primary Care Provide r Elizabeth Dean NP Primary Care Provider [phone] Encounter Details Date Type Department Care Team (Late st Contact Info) Description 09/26/[address] [facility] [address] [place] [address] [phone] Kyra Driscoll MD [address] [place] [address] [phone] Social History Tobacco Use Types Packs/Day Years Used Date Smoking Tobacco: Never Assessed Comments Unknown Sex and Gender Information Value Date Recorded Sex Assigned at Female 09/05/2022 10:16 AM EDT Legal Sex Female 10:16 AM EDT Gender Identity Female 09/05/2022 10:16 AM EDT Sexual Orientation Choose not to disclose 2021 10:16 AM EDT documented as of this encounter Plan of Treatment Upcoming Encounters Date Type Department Care Team (Late st Contact Info) Description 03/03/2025 2:30 PM EDT Office Visit [facility] [address] [place] [address] [phone] Elizabeth Dean NP [address] [place], [place] [phone] 03/04/2025 10:30 AM EDT Clinical Support [facility] [address] [place] [phone] Julia Lu RN documented as of this encounter Visit Diagnoses Not on filedocumented in this encounter Care Teams Environmental Program Manager Relationship Specialty Start Date End Date Kyra Driscoll MD [address] [place] [address] PCP - General Family Medicine 06/03/19 03/03/24 Elizabeth Dean NP [address] [place] [address] PCP - General Family Medicine 02/25/25 documented as of this encounter
--- OUTSIDE RECORDS SUMMARY | 2025-02-25 16:40 | XMS_ITS | Encounter Summary ---
Author Organization [employer] [facility] Address [address] [place] [address] [address] [place] [address] Care Team Providers Care Paper Tester Name Role Phone Kyra Driscoll MD Primary Care Provide r Elizabeth Dean NP Primary Care Provider [phone] Reason for Visit * Reason Comments Med Refill Encounter Details Date Type Department Care Team (Late Contact Info) Description 06/16/2023 Refill [facility] [address] [place], [place] [phone] Kyra Driscoll MD [address] [place], [place] [phone] Other muscle spasm Social History Tobacco Use Types Packs/Day Years [...] Description 03/03/2025 2:30 PM EDT Office Visit [facility] [address] [place], [place] [phone] Elizabeth Dean NP [address] [place], [place] [phone] 03/04/2025 10:30 AM EDT Clinical Support [facility] [address] [place] [address] Julia Lu RN documented as of this encounter Visit Diagnoses Diagnosis Other muscle spasm documented in this encounter Care Teams Paper Tester Relationship Specialty Start Date End Date Kyra Driscoll MD [address] [place] [address] PCP - General Family Medicine 06/03/19 03/03/24 Elizabeth Dean NP [address] [place] [address] PCP - General Family Medicine 02/25/25 documented as of this encounter
--- OUTSIDE RECORDS SUMMARY | 2025-02-25 16:41 | XMS_ITS | Encounter Summary ---
Author Organization [employer] Address [address] [facility] [address] 7t [place] [address] Care Team Providers Care Restoration Silversmith Name Role Phone Elizabeth Dean NP Primary Care Provider Encounter Details Date Type Department Care Team (Late st Contact Info) Description 02/25/2025 1:00 PM EDT Office Visit [facility] [address] [place], [place] [phone] Elizabeth Dean NP [address] [place], [place] [phone] Mild intermittent asthma, unspecified whether complicated (Primary Dx); Viral upper respiratory tract infection; Allergy, initial encounter Social History Tobacco Use Types Packs/Day Years Used Date Smoking Tobacco: Never Passive Smoke Exposure: Never Smokeless Tobacco: Never Alcohol Use Standard Drinks/Week Comments Never 0 (1 standard drink = 0.6 oz pur e alcohol) Housing Stability Answer Date Recorded What is your housing situation today? I have francesco kai 02/18/[address] you li ve. Do you have problems with any of the following? None of the above 02/18/2025 Food Insecurity Answer Date Recorded Within the past 12 months, y ou worried that your food would run out before you got money to buy more: Never True 02/18/2025 Within the past 12 months,th e food you bought just didn't last and you didn't have enough money to get more: Never True Transportation Answer Date Recorded In the past 12 months, has l ack of transportation kept you from medical appts, meetings, work or from getting things needed for daily living? No 02/18/2025 Utilities Answer Date Recorded In the past 12 months, has t he electric, gas, oil or water [employer] threatened to shut off services in your home? No 02/18/2025 Depression Answer Date Recorded Patient Health Questionnaire-2 Score 1 02/18/2025 Internet Access Answer Date Recorded Internet Access Q1 No 02/18/2025 Internet Access Q2 I do not want or need it 02/04 Comments Unknown Sex and Gender Information Value Date Recorded Sex Assigned at Female 09/05/2022 10:16 AM EDT Legal Sex Female 10:16 AM EDT Gender Identity Female 09/05/2022 10:16 AM EDT Sexual Orientation Choose not to disclose 2021 10:16 AM EDT documented as of this encounter Last Filed Vital Signs Vital Sign Reading Time Taken Comments Blood Pressure 144/85 02/25/2025 11:01 AM EDT Pulse 84 02/25/2025 11:01 AM EDT Temperature 36.9 ??C (98.4 ??F) 02/25/2025 11:01 AM E DT Respiratory Rate - - Oxygen Saturation 100% 02/25/2025 11:01 AM EDT Inhaled Oxygen Concentration - - Weight - - Height - - Body Mass Index - - documented in this encounter Progress Notes * Nicci Hdz RN - 02/25/2025 1:00 PM EDT Patient presestns to walk in center with a complaint of SOB and chest pain. Pt O2 sat on room air 100 percent pt taking in full sentences shows no signs of respiratory distress wit RR of 18. Last night pt began to have chest pain only when taking a deep breaths and she last used her inhaler 3 weeksago has intermittent dry cough. She reports she also felt like her legs were shaky denies any of these symptoms at this time. * Elizabeth Dean NP - 02/25/2025 1:00 PM EDT Subjective: Christie Ortiz is a 49 y.o. female who presents to the office for a sick visit. HPI 1 day of dry cough, no fever no one side at home Feels burning with inspiration, have albuterol, Not taking roseline, just came from [place] Would like to establish primary care, denies chest pain , fever declines URI poct tests today Patient Active Problem List Diagnosis Anxiety Arthritis Asthma Bilateral hearing loss Chest pain COPD (chronic obstructive pulmonary disease) with chronic bronchitis (CMS/HCC) Cramps of lower extremity Dermatochalasis of both upper eyelids Dyspnea Fibromyositis Gastroesophageal reflux disease HTN (hypertension) Hypoglycemia IFG (impaired fasting glucose) Irregular periods Knee pain Lumbar back pain Migraine headache Migraine without aura, not refractory Mixed stress and urge urinary incontinence Moderate persistent asthma without complication Mood disorder (CMS/HCC) Multiple joint pain Neck pain Obesity Obstructive sleep apnea syndrome Opioid dependence (CMS/HCC) Pain in elbow Positive antinuclear antibody Pterygium Rash Scalp psoriasis Seasonal allergic rhinitis Seizure (CMS/HCC) Seropositive rheumatoid arthritis (CMS/HCC) Snoring Sprain of distal tibiofibular ligament Systolic murmur Tear of ulnar collateral ligament of left elbow Vertigo History of bariatric surgery Folliculitis Allergies Chronic bilateral low back pain without sciatica Neuropathic pain Viral upper respiratory tract infection Review of Systems Constitutional: Negative for activity change and appetite change. Respiratory: Positive for cough and shortness of breath. Negative for apnea, chest tightness, wheezing and stridor. Cardiovascular: Negative for chest pain, palpitations and leg swelling. Genitourinary: Negative for difficulty urinating and dyspareunia. Neurological: Negative for dizziness. Allergies Allergen Reactions Onion Anaphylaxis Latex Other reaction(s): rash Shellfish Allergy Other reaction(s): swelling, rash Objective: Visit Vitals BP (!) 144/85 (BP Location: Left arm, Patient Position: Sitting, BP Cuff Size: Adult) Pulse 84 Temp 98.4 ??F (36.9 ??C) (Oral) SpO2 100% Smoking Status Never Physical Exam Vitals reviewed. HENT: Head: Normocephalic and atraumatic. Nose: Nose normal. Eyes: Conjunctiva/sclera: Conjunctivae normal. Cardiovascular: Rate and Rhythm: Normal rate and regular rhythm. Heart sounds: Normal heart sounds. Pulmonary: Effort: Pulmonary effort is normal. Breath sounds: Normal breath sounds. Musculoskeletal: Cervical back: Normal range of motion and neck supple. Neurological: General: No focal deficit present. Mental Status: She is alert. Assessment/Plan: Problem List Items Addressed This Visit Asthma - Primary Current Assessment & Plan Resume inhalers, pt notes benefit Pt with reassuring resp exam, suspect allergies are trigger from inspirational discomfort No crackles, hypoxia or wheeze Allergies Current Assessment & Plan Resume roseline, Rx sent Viral upper respiratory tract infection Current Outpatient Medications Medication Sig Dispense Refill acarbose (Precose) 50 MG tablet Take 50 mg by mouth 3 times daily. acetaminophen (Tylenol) 500 MG tablet Take 1 tablet by mouth every 6 (six) hours. albuterol (2.5 MG/3ML) 0.083% nebulizer solution USE 1 AMPULE USING A NEBULIZER EVERY 6 HOURS NEEDED 90 mL 1 albuterol (Ventolin HFA) 108 (90 Base) MCG/ACT inhaler Inhale 2 puffs every 4 (four) hours if needed for wheezing or shortness of breath. 18 g 3 Alcohol Swabs (Alcohol Prep) 70 % pads Use twice daily 100 each 11 Ascorbic Acid (vitamin C) 250 MG tablet TAKE 1 TABLET BY MOUTH THREE TIMES DAILY IN THE MORNING, ATNOON, AND IN THE EVENING 90 tablet 11 baclofen (Lioresal) 10 MG tablet Take 1 tablet by mouth in the morning and 1 tablet at noon and 1 tablet in the evening. Blood Glucose Monitoring Suppl ([employer] Lite) w/Device kit USE DIRECTED Blood Pressure Monitoring (Omron 3 Series BP Monitor) device USE ONCE DAILY DIRECTED Buprenorphine HCl-Naloxone HCl (Suboxone) 8-[address] 1 Film under the tongue 3 times daily for 7 days. 21 Film 0 busPIRone (Buspar) 15 MG tablet TAKE 1 TABLET BY MOUTH THREE TIMES DAILY IN THE MORNING, AT NOON, AND IN THE EVENING chpzsrvxde-rpmysbzxnxtyj-qmudlkqm 50-325-40 MG tablet TAKE 1 TO 2 TABLETS BY MOUTH IF NEEDED FOR SEVERE HEADACHE, NOT TO EXCEED 2 TABLETS PER DAY 20 tablet 0 calcium carbonate (Os-Doron) 1250 (500 Ca) MG chewable tablet Chew 1 tablet in the morning. cholecalciferol (D3-5) 5,000 Units tablet Take 1 capsule by mouth in the morning. clonazePAM (KlonoPIN) 1 MG tablet TAKE 1 TABLET BY MOUTH EVERY MORNING and TAKE 2 TABLETS BY MOUTH EVERY DAY AT BEDTIME Continuous Blood Gluc Emt P (Horranceyle Cindy 2 [place]) device USE DIRECTED Continuous Blood Gluc Sensor ([employer], [employer]tyle Cindy 2 Sensor) misc USE DIRECTED. CHANGE EVERY 14 DAYS cromolyn (Opticrom) 4 % ophthalmic solution Administer 1 drop into affected eye(s) every 6 (six) hours. cyanocobalamin (Vitamin B-12) 1000 MCG tablet TAKE 1 TABLET BY MOUTH EVERY MORNING 90 tablet 3 cyclobenzaprine (Flexeril) 10 MG tablet Take 10 mg by mouth if needed in the morning, at noon, and at bedtime. dexAMETHasone (Decadron) 1 MG tablet Take 1 mg by mouth 1 (one) time. Diclofenac Sodium 1 % gel Apply topically every 8 (eight) hours. dilTIAZem ER (Tiazac) 240 MG 24 hr capsule Take 240 mg by mouth. diphenhydrAMINE (BENADryl) 25 MG capsule Take 2 capsules (50 mg) by mouth every 6 (six) hours if needed for sleep or allergies. 30 capsule 3 diphenhydrAMINE (Colleen-Dryl) 25 MG tablet TAKE 2 TABLETS BY MOUTH EVERY 4 TO 6 HOURS NEEDED 60 tablet 0 docusate sodium (Colace) 100 MG capsule TAKE 1 CAPSULE BY MOUTH TWICE DAILY IN THE MORNING AND IN THE EVENING 180 capsule 1 EPINEPHrine (Epipen) 0.3 MG/0.3ML injection syringe Inject into upper leg. Call 911 after use. 2 each 0 ferrous sulfate (FeroSul) 325 (65 Fe) MG tablet TAKE 1 TABLET BY MOUTH THREE TIMES DAILY IN THE MORNING, AT NOON, AND IN THE EVENING 90 tablet 5 fexofenadine (Roseline) 180 MG tablet Take 1 tablet (180 mg) by mouth Once per day. 90 tablet 0 fluocinolone (Necedah-Smoothe) 0.01 % external oil apply by topical route thin layer to damp scalp massage well and cover use for twice weekly. Leave for overnight then wash off fluticasone (Flonase) 50 MCG/ACT nasal spray Administer 1 spray into affected nostril(s) every 12 (twelve) hours. Fluticasone Furoate-Vilanterol (Breo Ellipta) 200-25 MCG/ACT aerosol powder Inhale 1 puff Once per day. INHALE 1 PUFF ONCE DAILY 60 each 1 folic acid (Folvite) 1 MG tablet TAKE 1 TABLET BY MOUTH EVERY MORNING 90 tablet 0 FREESTYLE LITE test strip TEST BLOOD SUGAR TWICE DAILY 100 each 11 gabapentin (Neurontin) 600 MG tablet TAKE 1 TABLET BY MOUTH THREE TIMES DAILY IN THE MORNING, EVENING, AND BEDTIME 90 tablet 1 gabapentin (Neurontin) 800 MG tablet Take 1 tablet (800 mg) by mouth 3 times daily. 270 tablet 0 glucose-vitamin C 4-6 GM-MG oral gel take one in case of low blood sugar hydroxychloroquine (Plaquenil) 200 MG tablet Take 1 tablet by mouth in the morning. ketotifen (Zaditor) 0.025 % ophthalmic solution INSTILL 1 DROP TWICE DAILY INTO THE AFFECTED EYE(S) lisinopril (Zestril) 30 MG tablet Take 1 tablet (30 mg) by mouth in the morning. 30 tablet 11 meclizine (Antivert) 25 MG tablet Take 25 mg by mouth if needed in the morning, at noon, and at bedtime. mirtazapine (Remeron) 30 MG tablet Take 30 mg by mouth at bedtime. montelukast (Singulair) 10 MG tablet Take 1 tablet (10 mg) by mouth at bedtime. 90 tablet 3 Multiple Vitamin (Multivitamin) tablet TAKE 1 TABLET BY MOUTH TWICE DAILY IN THE MORNING AND IN THEEVENING WITH FOOD 180 tablet 3 mupirocin (Bactroban) 2 % ointment APPLY TOPICALLY TO AFFECTED AREA(S) THREE TIMES DAILY IN THE MORNING, AT NOON, AND AT BEDTIME FOR 10 DAYS 22 g 3 nabumetone (Relafen) 500 MG tablet Take 1 tablet by mouth every 12 (twelve) hours. naloxone (Narcan) 4 mg/0.1 mL nasal spray Administer 1 spray (4 mg) into affected nostril(s) if needed for opioid reversal. May repeat every 2-3 minutes if needed, alternating nostrils, until medicalassistance becomes available. 2 each 0 omeprazole (PriLOSEC) [address] capsule Take 1 capsule by mouth every 12 (twelve) hours. ondansetron ODT (Zofran-ODT) 4 MG disintegrating tablet DISSOLVE 1 TABLET BY MOUTH EVERY TWELVE HOURS DIRECTED 30 tablet 1 OXcarbazepine (Trileptal) 600 MG tablet TAKE 1 TABLET BY MOUTH TWICE DAILY IN THE MORNING AND IN THE EVENING pancrelipase, Afm-Gusf-Qmtj, (Creon) 7176-5677 units capsule Take 1 capsule by mouth. Rasuvo 25 MG/0.5ML solution auto-injector INJECT 0.5mls SUBCUTANEOUSLY ONCE WEEKLY DIRECTED Spacer/Aero-Holding Chambers (OptiChamber Sophia) misc 1 each every 4 (four) hours if needed (asthma). 1 each 0 SUMAtriptan (Imitrex) 25 MG tablet TAKE 1 TABLET BY MOUTH AT ONSET OF MIGRAINE. MAY REPEAT ONCE AFTER 2 HOURS IF NEEDED. NO MORE THAN 8 TABLETS DAILY 10 tablet 1 thiamine (Vitamin B-1) 50 MG tablet Take 50 mg by mouth at bedtime. tiZANidine (Zanaflex) 4 MG tablet TAKE 1 TABLET EVERY 8 HOURS NEEDED DO NOT EXCEED 3 TABLET DAILY 90 tablet 0 traZODone (Desyrel) 50 MG tablet take 2 tablet by oral route every day at bedtime as needed TRUEplus Glucose On The Go 4 g chewable tablet CHEW 4 TABLETS BY MOUTH NEEDED FOR BLOOD SUGAR (<70 MG/DL) DIRECTED 40 tablet 1 TRUEplus Lancets 33G [facility] [place] TEST BLOOD SUGAR TWICE DAILY 100 each 11 Vitamin E 45 MG (100 UNIT) capsule TAKE 1 CAPSULE BY MOUTH EVERY EVENING 90 capsule 3 zolpidem (Ambien) 10 MG tablet Take 10 mg by mouth if needed at bedtime. No current facility-administered medications for this visit. documented in this encounter Miscellaneous Notes * Assessment & Plan Note - Elizabeth Dean NP - 02/25/2025 1:16 PM EDTAssociated Problem(s): Allergies Resume roseline, Rx sent * Assessment & Plan Note - Elizabeth Dean NP - 02/25/2025 1:16 PM EDTAssociated Problem(s): Asthma Resume inhalers, pt notes benefit Pt with reassuring resp exam, suspect allergies are trigger from inspirational discomfort No crackles, hypoxia or wheeze documented in this encounter Plan of Treatment Upcoming Encounters Date Type Department Care Team (Late st Contact Info) Description 03/03/2025 2:30 PM EDT Office Visit [facility] MEDICINE [address] [place] [phone] Elizabeth Dean NP [address] [place] [address] 03/04/2025 10:30 AM EDT Clinical Support [facility] [address] [place] [address] Julia Lu RN documented as of this encounter Visit Diagnoses Diagnosis Mild intermittent asthma, unspecified whether complicated- Primary Viral upper respiratory tract infection Acute upper respiratory infections of unspecified site Allergy, initial encounter documented in this encounter Care Teams Restoration Silversmith Relationship Specialty Start Date End Date Elizabeth Dean NP [address] [place] [address] PCP - General Family Medicine 02/25/25 documented as of this encounter
--- OUTSIDE RECORDS SUMMARY | 2025-02-25 16:41 | XMS_ITS | Encounter Summary ---
Author Organization [employer] Address [address] [facility] 7t [place] [address] Care Team Providers Care Community Cultural Development Officer Name Role Phone Elizabeth Dean MARCO Primary Care Provider [phone] Reason for Referral * Consultation (Routine) - Authorized Specialty Diagnoses / Procedures Referred By Randi t Referred To Contact Family Medicine Diagnoses Uncomplicated opioid dependence (CMS/HCC) Porfirio Saldivar MD [address] [place] [address] Phone: tel: fax: Nurys Mcdonnell MD [address] [place] [address] Phone: tel: fax: Referral ID Status Reason Start Date Expiration Date Visits Requested Visits Authorized [id number] Authorized Consult and Treat 02/25/2025 02/25/2026 1 1 * Consultation (Routine) - Authorized Specialty Diagnoses / Procedures Referred By Randi t Referred To Contact Behavioral Health Diagnoses Uncomplicated opioid dependence (CMS/HCC) Porfirio Saldivar MD [address] [place] [address] Phone: tel: fax: Emily Dhaliwal [address] [place], [place] Phone: tel: fax: Referral ID Status Reason Start Date Expiration Date Visits Requested Visits Authorized [id number] Authorized Specialty Services Required 02/25/2025 02/25/2026 1 1 Reason for Visit * Reason Comments OBAT Encounter Details Date Type Department Care Team (Latest Contact Info) Description 02/25/2025 10:15 AM EDT Office Visit [facility] MED[facility] [address] [place] [address] Porfirio Saldivar MD [address] [place] [address] Uncomplicated opioid dependence (CMS/HCC) (Primary Dx) Social History Tobacco Use Types Packs/Day Years Used Date Smoking Tobacco: Never Passive Smoke Exposure: Never Smokeless Tobacco: Never Alcohol Use Standard Drinks/Week Comments Never 0 (1 standard drink = 0.6 oz pur e alcohol) Housing Stability Answer Date Recorded What is your housing situation today? I have francesco quinn 02/18/[address] you li [...] t he electric, gas, oil or water company threatened to shut off services in your [...] Description 03/03/2025 2:30 PM EDT Office Visit [facility] MED[facility]INE [address] [place] [phone] Elizabeth Dean NP [address] [place] [address] 03/04/2025 10:30 AM EDT Clinical Support [facility] [address] [place] [phone] Julia Lu RN Scheduled Orders Name Type Priority Associated Diagnoses Orde r Schedule CBC auto differential Lab Routine Uncomplicated opioid dependence ([facility]/HCC) Expected: 02/25/2025 (Approximate), Expires: 02/25/2026 Drug Monitoring, Barbiturates, Quantitative, Urine Lab Routine Uncomplicated opioid dependence (CMS/HCC) Expected: 02/25/2025 (Approximate), Expires: 02/25/2026 Scheduled Referrals Name Type Priority Associated Diagnoses Order Schedule Referral to Behavioral Health Outpatient Referral Routine Uncomplicated opioid dependence (CMS/HCC) Expected: 02/25/2025 (Approximate), Expires: 02/25/2026 [facility] Referral Routine Uncomplicated opioid dependence (CMS/HCC) Expected: 02/25/2025 (Approximate), Expires: 02/25/2026 documented as of this encounter Procedures Procedure Name Priority Date/Time Associated Diagnosis Comments POCT PERLA-14 URINE DRUG SCREEN Routine 02/25/2025 10:14 AM EDT Uncomplicated opioid dependence ([facility]) documented in this encounter Results * POCT PERLA-14 Urine Drug Screen (02/25/2025 10:14 AM EDT) THC Negative Cocaine Screen, Urine Negative Opiate Screen, Urine Negative Methamphetamine Screen Urine Negative Amphetamine Screen, Urine Negative Benzodiazepines Screen, Urine Negative Barbiturate Screen, Urine Positive Methadone Screen, Urine Negative Buprenophine Screen, Urine Positive TCA, Urine Negative MDMA Urine Negative ng/mL Oxycodone Screen, Urine Negative Phencyclidine (PCP), Urine Negative Fentanyl, Urine Negative Urine Urine specimen obtained by clean catch procedure / Unknown 02/25/2025 10:14 AM EDT us Porfirio Saldivar MD POINT OF CARE TEST ENTER/EDIT ORDERABLES Final Result documented in this encounter Visit Diagnoses Diagnosis Uncomplicated opioid dependence (CMS/HCC)- Primary documented in this encounter Care Teams Community Cultural Development Officer Relationship Specialty Start Date End Date Elizabeth Dean NP [address] [place] [phone] PCP - General Family Medicine 02/25/25 documented as of this encounter
--- OUTSIDE RECORDS SUMMARY | 2025-02-25 16:41 | XMS_ITS | Encounter Summary ---
Author Organization [employer] Address 75 [facility] 7t [place] [address] Care Team Providers Care Bit Sharpener Operator Name Role Phone Kyra Driscoll MD Primary Care Provide r Elizabeth Dean NP Primary Care Provider [phone] Reason for Visit * Reason Comments Med Refill Encounter Details Date Type Department Care Team (Late Contact Info) Description 03/15/2023 Refill [facility] [address] [place], [place] [phone] Nurys Mcdonnell MD [address] [place] [address] Other migraine without status migrainosus, not intractable Social History Tobacco Use Types Packs/Day Years [...] suspected to have Coronavirus/COVID-19? No / Unsure 03/10/2023 1:30 PM EDT documented as of this encounter Plan of Treatment Upcoming Encounters Date Type Department Care Team ([facility] Contact Info) Description 03/03/2025 2:30 PM EDT Office Visit [address] [address] Elizabeth Dean NP [address] [place] [address] 03/04/2025 10:30 AM EDT Clinical Support [address] [address] Julia Lu RN documented as of this encounter Visit Diagnoses Diagnosis Other migraine without status migrainosus, not intractable documented in this encounter Care Teams Bit Sharpener Operator Relationship Specialty Start Date End Date Kyra Driscoll MD [address] [place] [phone] PCP - General Family Medicine 06/03/19 03/03/24 Elizabeth Dean NP [address] [place] [address] PCP - General Family Medicine 02/25/25 documented as of this encounter
--- OUTSIDE RECORDS SUMMARY | 2025-02-25 16:41 | XMS_ITS | Encounter Summary ---
Author Organization [employer] Address 75 [facility] 7t [place] [address] Care Team Providers Care Or Director Name Role Phone Kyra Driscoll MD Primary Care Provide r Elizabeth Dean NP Primary Care Provider [phone] Reason for Visit * Reason Comments Med Refill Encounter Details Date Type Department Care Team (Late Contact Info) Description 04/17/2023 Refill [facility] [address] [place], [place] [phone] [facility] [address] [place] [address] Iron deficiency Social History Tobacco Use Types Packs/Day Years [...] suspected to have Coronavirus/COVID-19? No / Unsure 04/19/2023 9:32 AM EDT documented as of this encounter Plan of Treatment Upcoming Encounters Date Type Department Care Team (Late Contact Info) Description 03/03/2025 2:30 PM EDT Office Visit [address] [phone] Elizabeth Dean NP [address] [place] [address] 03/04/2025 10:30 AM EDT Clinical Support [address] [address] Julia Lu RN documented as of this encounter Visit Diagnoses Diagnosis Iron deficiency Disorders of iron metabolism documented in this encounter Care Teams Or Director Relationship Specialty Start Date End Date Kyra Driscoll MD [address] [place] [phone] PCP - General Family Medicine 06/03/19 03/03/24 Elizabeth Dean NP [address] [place] [phone] PCP - General Family Medicine 02/25/25 documented as of this encounter
--- OUTSIDE RECORDS SUMMARY | 2025-02-25 16:41 | XMS_ITS | Encounter Summary ---
Author Organization [employer] Address 75 [facility] 7t [place] [address] Care Team Providers Care Pathology Manager Name Role Phone Kyra Driscoll MD Primary Care Provide r Elizabeth Dean NP Primary Care Provider [phone] Reason for Visit * Reason Comments Med Refill Encounter Details Date Type Department Care Team ([facility] Contact Info) Description 04/22/2023 Refill [facility] MED[facility] [address] [place], [place] [phone] Kyra Driscoll MD [address] [place], [place] [phone] Moderate persistent asthma without complication Social History Tobacco Use Types Packs/Day Years [...] Upcoming Encounters Date Type Department Care Team ([facility] Contact Info) Description 03/03/2025 2:30 PM EDT Office Visit [address] [address] Elizabeth Dean NP [address] [place] [address] 03/04/2025 10:30 AM EDT Clinical Support [address] [address] Julia Lu RN documented as of this encounter Visit Diagnoses Diagnosis Moderate persistent asthma without complication documented in this encounter Care Teams Pathology Manager Relationship Specialty Start Date End Date Kyra Driscoll MD [address] [place] [phone] PCP - General Family Medicine 06/03/19 03/03/24 Elizabeth Dean NP [address] [place] [phone] PCP - General Family Medicine 02/25/25 documented as of this encounter
--- OUTSIDE RECORDS SUMMARY | 2025-02-25 16:41 | XMS_ITS | Encounter Summary ---
Author Organization [employer] Address [address] [facility] 7t [place] [address] Care Team Providers Care Sulfonator Operator Name Role Phone Kyra Driscoll MD Primary Care Provide r Elizabeth Dean NP Primary Care Provider [phone] Reason for Visit * Reason Comments Med Refill Encounter Details Date Type Department Care Team (Late Contact Info) Description 06/07/2023 Refill [facility] [address] [place], [place] [phone] Kyra Driscoll MD [address] [place], [place] [phone] Chronic nausea; Allergy, subsequent encounter Social History Tobacco Use Types Packs/Day [...] Description 03/03/2025 2:30 PM EDT Office Visit [facility] [address], [place] [phone] Elizabeth Dean NP [address] [place], [place] [phone] 03/04/2025 10:30 AM EDT Clinical Support [facility] [address] [place] [address] Julia Lu RN documented as of this encounter Visit Diagnoses Diagnosis Chronic nausea Nausea alone Allergy, subsequent encounter documented in this encounter Care Teams Sulfonator Operator Relationship Specialty Start Date End Date Kyra Driscoll MD [address] [place] [address] PCP - General Family Medicine 06/03/19 03/03/24 Elizabeth Dean NP [address] [place] [address] PCP - General Family Medicine 02/25/25 documented as of this encounter
--- OUTSIDE RECORDS SUMMARY | 2025-02-25 16:41 | XMS_ITS | Encounter Summary ---
Author Organization [employer] Address [address] [place] [address] [address] [place] [address] Care Team Providers Care Professional Nursing Tutor Name Role Phone Kyra Driscoll MD Primary Care Provide r Elizabeth Dean NP Primary Care Provider [phone] Reason for Visit * Reason Comments Med Refill Encounter Details Date Type Department Care Team (Late Contact Info) Description 06/13/2023 Refill [facility] MED[facility]INE [address] [place], [place] [phone] Porfirio Saldivar MD [address] [place], [place] [phone] Uncomplicated opioid dependence (CMS/HCC) Social History Tobacco [...] Description 03/03/2025 2:30 PM EDT Office Visit [facility]INE [address] [place], [place] [phone] Elizabeth Dean NP [address] [place], [place] [phone] 03/04/2025 10:30 AM EDT Clinical Support [facility] [address] [place] [address] Julia Lu RN documented as of this encounter Visit Diagnoses Diagnosis Uncomplicated opioid dependence (CMS/HCC) documented in this encounter Care Teams Professional Nursing Tutor Relationship Specialty Start Date End Date Kyra Driscoll MD [address] [place] [address] PCP - General Family Medicine 06/03/19 03/03/24 Elizabeth Dean NP [address] [place] [address] PCP - General Family Medicine 02/25/25 documented as of this encounter
--- OUTSIDE RECORDS SUMMARY | 2025-02-25 16:41 | XMS_ITS | Encounter Summary ---
Author Organization [employer] Address [address] [facility] [address] [place] [address] Care Team Providers Care Leather Cutter Name Role Phone Elizabeth Dean MARCO Primary Care Provider [phone] Encounter Details Date Type Department Care Team (Latest Contact Info) Description 02/25/2025 Travel Social History Tobacco Use Types Packs/Day Years [...] Description 03/03/2025 2:30 PM EDT Office Visit [facility] MEDICINE [address] [place] [phone] Elizabeth Dean NP [address] [place] [address] 03/04/2025 10:30 AM EDT Clinical Support [address] [address] Julia Lu RN documented as of this encounter Visit Diagnoses Not on filedocumented in this encounter Care Teams Leather Cutter Relationship Specialty Start Date End Date Elizabeth Dean NP [address] [place] [address] PCP - General Family Medicine 02/25/25 documented as of this encounter
--- OUTSIDE RECORDS SUMMARY | 2025-02-25 16:41 | XMS_ITS | Encounter Summary ---
Author Organization [employer] Address [address] [facility] 7t [place] [address] Care Team Providers Care Shearing Shed Worker Name Role Phone Elizabeth Dean MARCO Primary Care Provider [phone] Reason for Visit * Reason Onset Date Comments Med Refill 02/25/2025 Encounter Details Date Type Department Care Team (Late st Contact Info) Description 02/25/2025 Refill [facility] MED[facility]INE [address] [place], [place] [phone] Julia Lu RN Uncomplicated opioid dependence (CMS/[facility]) Social History Tobacco Use Types Packs/Day Years [...] 03/03/2025 2:30 PM EDT Office Visit [facility] MEDICINE [address] [place] [phone] Elizabeth Dean NP [address] [place] [phone] 03/04/2025 10:30 AM EDT Clinical Support [address] [address] Julia Lu RN documented as of this encounter Visit Diagnoses Diagnosis Uncomplicated opioid dependence (CMS/HCC) documented in this encounter Care Teams Shearing Shed Worker Relationship Specialty Start Date End Date Elizabeth Dean NP [address] [place] [address] PCP - General Family Medicine 02/25/25 documented as of this encounter
--- OUTSIDE RECORDS SUMMARY | 2025-02-25 16:41 | XMS_ITS | Encounter Summary ---
Author Organization [facility] [facility] Address [address] [facility] 7t [place] [address] Care Team Providers Care Supervisor Frame Assembly Name Role Phone Kyra Driscoll MD Primary Care Provide r Elizabeth Dean NP Primary Care Provider [phone] Reason for Visit * Reason Comments Med Refill Encounter Details Date Type Department Care Team ([facility] Contact Info) Description 04/24/2023 Refill [facility] MED[facility] [address] [place], [place] [phone] Kyra Driscoll MD [address] [place], [place] [phone] Allergy, subsequent encounter Social History Tobacco Use [...] Upcoming Encounters Date Type Department Care Team ([facility] Contact Info) Description 03/03/2025 2:30 PM EDT Office Visit [address] [phone] Elizabeth Dean NP [address] [place] [address] 03/04/2025 10:30 AM EDT Clinical Support [address] [address] Julia Lu RN documented as of this encounter Visit Diagnoses Diagnosis Allergy, subsequent encounter documented in this encounter Care Teams Supervisor Frame Assembly Relationship Specialty Start Date End Date Kyra Driscoll MD [address] [place] [address] PCP - General Family Medicine 06/03/19 03/03/24 Elizabeth Dean NP [address] [place] [address] PCP - General Family Medicine 02/25/25 documented as of this encounter
--- OUTSIDE RECORDS SUMMARY | 2025-02-25 16:41 | XMS_ITS | Encounter Summary ---
Author Organization [employer] Address [address] [facility] 7t [place] [address] Care Team Providers Care Advanced Practice Rn Name Role Phone Kyra Driscoll MD Primary Care Provide r Elizabeth Dean NP Primary Care Provider [phone] Reason for Visit * Reason Comments Med Refill Encounter Details Date Type Department Care Team (Late Contact Info) Description 03/10/2023 Refill [facility] [address] [place], [place] [phone] Nurys Mcdonnell MD [address] [place], [place] [phone] Allergy, subsequent encounter Social History Tobacco Use [...] Upcoming Encounters Date Type Department Care Team [facility] Description 03/03/2025 2:30 PM EDT Office Visit [facility] [address] [place] [address] Elizabeth Dean NP [address] [place] [address] 03/04/2025 10:30 AM EDT Clinical Support [address] [address] Julia Lu RN documented as of this encounter Visit Diagnoses Diagnosis Allergy, subsequent encounter documented in this encounter Care Teams Advanced Practice Rn Relationship Specialty Start Date End Date Kyra Driscoll MD [address] [place] [address] PCP - General Family Medicine 06/03/19 03/03/24 Elizabeth Dean NP [address] [place] [address] PCP - General Family Medicine 02/25/25 documented as of this encounter
--- OUTSIDE RECORDS SUMMARY | 2025-02-25 16:41 | XMS_ITS | Clinical Summary ---
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 acetaminophen (Tylenol) 500 MG tablet Take 1 tablet by mouth every 6 (six) hours. Active acarbose (Precose) 50 MG tablet Take 50 mg by mouth 3 times daily. 023 Active baclofen (Lioresal) 10 MG tablet Take 1 tablet by mouth in the morning and 1 tablet at noon and 1 tablet in the evening. 021 Active Blood Glucose Monitoring Suppl ([employer] J[employer]anyle [place] Lite) w/Device kit USE DIRECTED 023 Active Blood Pressure Monitoring (Omron 3 Series BP Monitor) device USE ONCE DAILY DIRECTED 022 Active busPIRone (Buspar) 15 MG tablet TAKE 1 TABLET BY MOUTH THREE TIMES DAILY IN THE MORNING, AT NOON, AND IN THE EVENING 023 Active calcium carbonate (Os-Doron) 1250 (500 Ca) MG chewable tablet Chew 1 tablet in the morning. 019 Active clonazePAM (KlonoPIN) 1 MG tablet TAKE 1 TABLET BY MOUTH EVERY MORNING and TAKE 2 TABLETS BY MOUTH EVERY DAY AT BEDTIME 023 Active Continuous Blood Gluc Bead Cutter ([employer] AmericasStyle Cindy 2 Beauty) device USE DIRECTED 01/20/2 023 Active Continuous Blood Gluc Sensor (FreeStyle Cindy 2 Sensor) [facility] USE DIRECTED. CHANGE EVERY 14 DAYS Active cromolyn (Opticrom) 4 % ophthalmic solution Administer 1 drop into affected eye(s) every 6 (six) hours. Active cyclobenzaprine (Flexeril) 10 MG tablet Take 10 mg by mouth if needed in the morning, at noon, and at bedtime. Active dexAMETHasone (Decadron) 1 MG tablet Take 1 mg by mouth 1 (one) time. Active Diclofenac Sodium 1 % gel Apply topically every 8 (eight) hours. Active dilTIAZem ER (Tiazac) 240 MG 24 hr capsule Take 240 mg by mouth. Active fluocinolone ([place]-Smoothe) 0.01 % external oil apply by topical route thin layer to damp scalp massage well and cover use for twice weekly. Leave for overnight then wash off Active fluticasone (Flonase) 50 MCG/ACT nasal spray Administer 1 spray into affected nostril(s) every 12 (twelve) hours. Active glucose-vitamin C 4-6 GM-MG oral gel take one in case of low blood sugar Active hydroxychloroqui ne (Plaquenil) 200 MG tablet Take 1 tablet by mouth in the morning. Active ketotifen (Zaditor) 0.025 % ophthalmic solution INSTILL 1 DROP TWICE DAILY INTO THE AFFECTED EYE(S) Active meclizine (Antivert) 25 MG tablet Take 25 mg by mouth if needed in the morning, at noon, and at bedtime. Active Rasuvo 25 MG/0.5ML solution auto-injector INJECT 0.5mls SUBCUTANEOUSLY ONCE WEEKLY DIRECTED Active mirtazapine (Remeron) 30 MG tablet Take 30 mg by mouth at bedtime. Active nabumetone (Relafen) 500 MG tablet Take 1 tablet by mouth every 12 (twelve) hours. Active omeprazole (PriLOSEC) [address] capsule Take 1 capsule by mouth every 12 (twelve) hours. 018 Active OXcarbazepine (Trileptal) 600 MG tablet TAKE 1 TABLET BY MOUTH TWICE DAILY IN THE MORNING AND IN THE EVENING Active pancrelipase, Yvc-Puet-Takn, (Creon) 1563-3571 units capsule Take 1 capsule by mouth. 018 Active thiamine (Vitamin B-1) 50 MG tablet Take 50 mg by mouth at bedtime. 022 Active traZODone (Desyrel) 50 MG tablet take 2 tablet by oral route every day at bedtime as needed Active zolpidem (Ambien) 10 MG tablet Take 10 mg by mouth if needed at bedtime. Active cholecalciferol (D3-5) 5,000 Units tablet Take 1 capsule by mouth in the morning. Active diphenhydrAMINE (BENADryl) 25 MG capsuleIndicatio ns:Allergy, subsequent encounter Take 2 capsules (50 mg) by mouth every 6 (six) hours if needed for sleep or allergies. 30 capsule 3 023 Active montelukast (Singulair) 10 MG tabletIndication s:COPD (chronic obstructive pulmonary disease) with chronic bronchitis (CMS/HCC) Take 1 tablet (10 mg) by mouth at bedtime. 90 tablet 3 023 Active FREESTYLE LITE test stripIndications :IFG (impaired fasting glucose) TEST BLOOD SUGAR TWICE DAILY 100 each 11 023 Active TRUEplus Lancets 33G miscIndications: IFG (impaired fasting glucose) TEST BLOOD SUGAR TWICE DAILY 100 each 023 Active Alcohol Swabs (Alcohol Prep) 70 % padsIndications: IFG (impaired fasting glucose) Use twice daily 100 each 11 023 Active Multiple Vitamin (Multivitamin) tablet TAKE 1 TABLET BY MOUTH TWICE DAILY IN THE MORNING AND IN THE EVENING WITH FOOD 180 tablet 3 023 Active albuterol (2.5 MG/3ML) 0.083% nebulizer solutionIndicati ons:Moderate persistent asthma without complication USE 1 AMPULE USING A NEBULIZER EVERY 6 HOURS NEEDED 90 mL 1 023 Active ondansetron ODT (Zofran-ODT) 4 MG disintegrating tabletIndication s:Chronic nausea DISSOLVE 1 TABLET BY MOUTH EVERY TWELVE HOURS DIRECTED 30 tablet 1 023 Active mupirocin (Bactroban) 2 % ointmentIndicati ons:Folliculitis APPLY TOPICALLY TO AFFECTED AREA(S) THREE TIMES DAILY IN THE MORNING, AT NOON, AND AT BEDTIME FOR 10 DAYS 22 g 3 023 Active lisinopril (Zestril) 30 MG tabletIndication s:Primary hypertension Take 1 tablet (30 mg) by mouth in the morning. 30 tablet 11 023 Active gabapentin (Neurontin) 600 MG tabletIndication s:Chronic bilateral low back pain without sciatica TAKE 1 TABLET BY MOUTH THREE TIMES DAILY IN THE MORNING, EVENING, AND BEDTIME 90 tablet 1 023 Active gabapentin (Neurontin) 800 MG tabletIndication s:Neuropathic pain Take 1 tablet (800 mg) by mouth 3 times daily. 270 tablet 023 Active Ascorbic Acid (vitamin C) 250 MG tablet TAKE 1 TABLET BY MOUTH THREE TIMES DAILY IN THE MORNING, AT NOON, AND IN THE EVENING 90 tablet 11 023 Active ferrous sulfate (FeroSul) 325 (65 Fe) MG tabletIndication s:Iron deficiency TAKE 1 TABLET BY MOUTH THREE TIMES DAILY IN THE MORNING, AT NOON, AND IN THE EVENING 90 tablet 5 023 Active EPINEPHrine (Epipen) 0.3 MG/0.3ML injection syringeIndicatio ns:Allergy to bee sting Inject into upper leg. Call 911 after use. 2 each 023 Active Vitamin E 45 MG (100 UNIT) capsule TAKE 1 CAPSULE BY MOUTH EVERY EVENING 90 capsule 3 023 Active cyanocobalamin (Vitamin B-12) 1000 MCG tablet TAKE 1 TABLET BY MOUTH EVERY MORNING 90 tablet 3 023 Active folic acid (Folvite) 1 MG tablet TAKE 1 TABLET BY MOUTH EVERY MORNING 90 tablet 023 Active tiZANidine (Zanaflex) 4 MG tabletIndication s:Other muscle spasm TAKE 1 TABLET EVERY 8 HOURS NEEDED DO NOT EXCEED 3 TABLET DAILY 90 tablet 023 Active TRUEplus Glucose On The Go 4 g chewable tabletIndication s:IFG (impaired fasting glucose) CHEW 4 TABLETS BY MOUTH NEEDED FOR BLOOD SUGAR (<70 MG/DL) DIRECTED 40 tablet 1 023 Active SUMAtriptan (Imitrex) 25 MG tabletIndication s:Other migraine without status migrainosus, not intractable TAKE 1 TABLET BY MOUTH AT ONSET OF MIGRAINE. MAY REPEAT ONCE AFTER 2 HOURS IF NEEDED. NO MORE THAN 8 TABLETS DAILY 10 tablet 1 Active diphenhydrAMINE (Colleen-Dryl) 25 MG tabletIndication s:Allergy, subsequent encounter TAKE 2 TABLETS BY MOUTH EVERY 4 TO 6 HOURS NEEDED 60 tablet 023 Active butalbital-aceta minophen-caffein e 50-325-40 MG tablet TAKE 1 TO 2 TABLETS BY MOUTH IF NEEDED FOR SEVERE HEADACHE, NOT TO EXCEED 2 TABLETS PER DAY 20 tablet Active docusate sodium (Colace) 100 MG capsule TAKE 1 CAPSULE BY MOUTH TWICE DAILY IN THE MORNING AND IN THE EVENING 180 capsule 1 Active naloxone (Narcan) 4 mg/0.1 mL nasal spray Administer 1 spray (4 mg) into affected nostril(s) if needed for opioid reversal. May repeat every 2-3 minutes if needed, alternating nostrils, until medical assistance becomes available. 2 each 025 2025 Active albuterol (Ventolin HFA) 108 (90 Base) MCG/ACT inhaler Inhale 2 puffs every 4 (four) hours if needed for wheezing or shortness of breath. 18 g 3 Active Spacer/Aero-Hold ing Chambers (OptiChamber Sophia) misc 1 each every 4 (four) hours if needed (asthma). 1 each Active Fluticasone Furoate-Vilanter ol (Breo Ellipta) 200-25 MCG/ACT aerosol powder Inhale 1 puff Once per day. INHALE 1 PUFF ONCE DAILY 60 each 1 025 2025 Active fexofenadine (Nupur) 180 MG tablet Take 1 tablet (180 mg) by mouth Once per day. 90 tablet Active Buprenorphine HCl-Naloxone HCl (Suboxone) 8-2 MG SL filmIndications: Uncomplicated opioid dependence (CMS/HCC) Place 1 Film under the tongue 3 times daily for 7 days. 21 Film 025 2024 Active predniSONE (Deltasone) 20 MG tablet TAKE 1 TABLET BY MOUTH ONCE DAILY FOR 5 DAYS 022 2024 Discontinued(T herapy completed) Ventolin HFA 108 (90 Base) MCG/ACT inhaler INHALE 2 PUFFS EVERY 4 TO 6 HOURS NEEDED 18 g 11 023 2024 Discontinued(R eorder (will not trigger notification to Pharmacy)) docusate sodium (Colace) 100 MG capsule TAKE 1 CAPSULE BY MOUTH TWICE DAILY IN THE MORNING AND IN THE EVENING 180 capsule 1 023 2024 Discontinued(R eorder (will not trigger notification to Pharmacy)) Fluticasone Furoate-Vilanter ol (Breo Ellipta) 200-25 MCG/ACT aerosol powder Inhale 1 puff in the morning. INHALE 1 PUFF ONCE DAILY 60 each 1 023 2024 Discontinued(R eorder (will not trigger notification to Pharmacy)) fexofenadine (Nupur) 180 MG tablet TAKE 1 TABLET BY MOUTH EVERY DAY 90 tablet 023 2024 Discontinued(R eorder (will not trigger notification to Pharmacy)) Buprenorphine HCl-Naloxone HCl (Suboxone) 8-2 MG SL filmIndications: Uncomplicated opioid dependence (CMS/HCC) Place 1 Film under the tongue 3 times daily for 8 days. 24 Film 025 2024 Discontinued(R eorder (will not trigger notification to Pharmacy)) Buprenorphine HCl-Naloxone HCl (Suboxone) 8-2 MG SL filmIndications: Uncomplicated opioid dependence (CMS/HCC) Place 1 Film under the tongue 3 times daily for 8 days. 24 Film 025 2024 Discontinued(D uplicate order (will not trigger notification to Pharmacy)) Buprenorphine HCl-Naloxone HCl (Suboxone) 8-2 MG SL filmIndications: Uncomplicated opioid dependence (CMS/HCC) Place 1 Film under the tongue 3 times daily for 7 days. 21 Film 025 2024 Discontinued(R eorder (will not trigger notification to Pharmacy)) Active Problems Problem Noted Date Diagnosed Date Viral upper respiratory tract infection 02/26/20 25 Neuropathic pain 04/04/2023 Assessment & Plan (04/04/2023 2:58 PM EDT): I will increase er gabapentin to see if this medication helps with leg pain and cramps Chronic bilateral low back pain without sciatica 02/09/2023 Assessment & Plan (02/09/2023 12:15 PM EDT): C/w acetaminophen PRN I will increase today her gabapentin to 600mg TID History of bariatric surgery 12/04/2022 Folliculitis 12/04/2022 Allergies 12/04/2022 Assessment & Plan (02/25/2025 1:16 PM EDT): [facility], Rx sent Anxiety 12/02/2022 Arthritis 12/02/2022 Chest pain 12/02/2022 Overview (12/22/2022): 47 y/o woman with HTN, and lupus presents with substernal chest pain 10/10 this morning now 7/10 found to be hypertensive with a new right RBB on EKG. Pt is clinically stable. Referred to ER via ambulance for CP with new right RBB. Assessment & Plan (12/22/2022 10:01 AM EST): 47 y/o woman with HTN, and lupus presents with substernal chest pain 10/10 this morning now 7/10 found to be hypertensive with a new right RBB on EKG. Pt is clinically stable. Referred to ER via ambulance for CP with new right RBB. Gastroesophageal reflux disease 12/02/2022 Hypoglycemia 12/02/2022 Assessment & Plan (04/04/2023 3:00 PM EDT): Continue following with endocrinology Patient will bring paper work for her to be allowed to have a service dog, I advise to bring documentation to medical records and I will help with this as much as I can Assessment & Plan (02/09/2023 12:13 PM EDT): Do not miss appointment with endocrinology 03/06/23 Please report to bariatric specialist It is recommended frequent small meal high in protein low in sugar and carbohydrates Assessment & Plan (01/04/2023 3:58 PM EST): Patient is concerned about her blood sugar. She has an open endo referral. I called [facility]. They said they recently lost 4 or 5 providers so they are booked out until October. They happened to have an open appointment MondayMarch 06 at 1545. [address] [facility], [address], [place]. I called patient and informed her of her appointment. Migraine headache 12/02/2022 Multiple joint pain 12/02/2022 Neck pain 12/02/2022 Obstructive sleep apnea syndrome 12/02/2022 Pain in elbow 12/02/2022 Positive antinuclear antibody 12/02/2022 Rash 12/02/2022 Seropositive rheumatoid arthritis 12/02/2022 Snoring 12/02/2022 Sprain of distal tibiofibular ligament 3 Tear of ulnar collateral ligament of left elbow 12/02/2022 Vertigo 12/02/2022 Mixed stress and urge urinary incontinence 03/13 Dermatochalasis of both upper eyelids 03/15/2019 Seizure 03/15/2019 Bilateral hearing loss 09/17/2018 Dyspnea 09/17/2018 Scalp psoriasis 09/17/2018 Systolic murmur 06/13/2018 Irregular periods 02/06/2018 Moderate persistent asthma without complication 01/17/2018 Pterygium 01/17/2018 COPD (chronic obstructive pu lmonary disease) with chronic bronchitis 11/29/2017 Cramps of lower extremity 11/29/2017 Assessment & Plan (02/09/2023 12:14 PM EDT): I will order today blood work patient to be contacted with results It is advise to maintain hydration Migraine without aura, not refractory 11/29/2017 Seasonal allergic rhinitis 11/29/2017 Opioid dependence 09/04/2015 Fibromyositis 04/26/2013 Asthma 01/23/2013 Assessment & Plan (02/25/2025 1:16 PM EDT): Resume inhalers, pt notes benefit Pt with reassuring resp exam, suspect allergies are trigger from inspirational discomfort No crackles, hypoxia or wheeze HTN (hypertension) 01/23/2013 Assessment & Plan (04/04/2023 2:58 PM EDT): C/w current medication regimen Assessment & Plan (03/24/2023 2:34 PM EDT): - Aerobic exercise to reduce BP. Initial goal of 30 min walk 3-5x/week. Increase as tolerated. - low-sodium diet (goal: <2g/day) and heart healthy diet such as DASH to reduce BP and prevent ASCVD. - Home BP monitoring 1-2 x day with goal of <140/90. - Seek immediate medical attention for chest pain, palpitations, SOB, syncope, or sudden changes in mental status. -I discontinue losartan and put her on lisinopril 30mg - Do not change or discontinue current prescriptions without first consulting health care provider Assessment & Plan (02/09/2023 12:17 PM EDT): Today her BP is high patient states that it is high because of her back pain I recommended: - Aerobic exercise to reduce BP. Initial goal of 30 min walk 3-5x/week. Increase as tolerated. - low-sodium diet (goal: <2g/day) and heart healthy diet such as DASH to reduce BP and prevent ASCVD. - Home BP monitoring 1-2 x day with goal of <140/90. If BP is persistently high please report back - Seek immediate medical attention for chest pain, palpitations, SOB, syncope, or sudden changes in mental status. IFG (impaired fasting glucose) 01/23/2013 Knee pain 01/23/2013 Lumbar back pain 01/23/2013 Assessment & Plan (01/04/2023 3:41 PM EST): Patient states her back is hurting her. We put her on the recall list for an appointment for lumbar back pain. Mood disorder 01/23/2013 Obesity 01/23/2013 Encounters * This document contains information received from the source organization and may not represent a complete record from that organization. Date Type Department Care Team Description 02/25/2025 1:00 PM EDT Office Visit [facility] WALK-IN [address] [address] Elizabeth Dean, MARCO Mild intermittent asthma, unspecified whether complicated (Primary Dx); Viral upper respiratory tract infection; Allergy, initial encounter 02/25/2025 10:15 AM EDT Office Visit [facility] MEDICINE [address] [place] [phone] Porfirio Saldivar MD Uncomplicated opioid dependence ([facility]/HCC) (Primary Dx) 02/25/2025 Refill [facility] MEDICINE [address] [place] [phone] Julia Lu RN Uncomplicated opioid dependence ([facility]/HCC) 02/25/2025 Travel 02/19/2025 Telephone [facility] WALK-IN CENTER [address] [place] [phone] Torres Morillo MD 02/18/2025 1:00 PM EDT Office Visit [facility] MEDICINE [address] [place] [phone] Torres Morillo MD Opioid type dependence, continuous ([facility]/HCC) (Primary Dx) 02/18/2025 Refill [facility] MEDICINE [address] [place] [phone] Julia Lu RN Uncomplicated opioid dependence ([facility]/HCC) 02/18/2025 Travel 02/10/2025 11:30 AM EDT Office Visit [facility] MEDICINE [address] [place] [phone] Julia Lu RN Uncomplicated opioid dependence ([facility]/HCC) 02/10/2025 Refill [facility] MEDICINE [address] [place] [phone] Julia Lu RN Uncomplicated opioid dependence ([facility]/HCC) (Primary Dx) 02/10/2025 Travel 02/05/2025 Telephone [facility] MEDICINE [address] [place] [phone] Daniele Mcfarlane MD New Patient appt. 02/04/2025 Telephone [facility] MEDICINE [address] [place] [phone] Nurys Mcdonnell MD New patient appt from Last 3 Months Immunizations Name Administration Dates Next Due Hep B, adult 06/26/2007,02/06/2007,01/05/2007 Influenza Injectable Quadriv alant Preservative Free IIV4 MDCK 11/11/2020 Influenza injectable quadriv alent IIV4 with preservative 08/22/2019 Influenza injectable quadriv alent preservative free 11/22/2018 Influenza, Split (incl. harshad fied surface antigen) 09/20/2013 Pfizer Covid-19 Vaccine 12+ Bivalent 11/08/2022 Pneumococcal Polysaccharide PPSV23 01/05/2007 TD (adult), 2 Lf tetanus tox oid, preservative free, adsorbed 06/26/2007 Tdap 09/20/2013 Social History Tobacco Use Types Packs/Day Years Used Date Smoking Tobacco: Never Passive Smoke Exposure: Never Smokeless Tobacco: Never Tobacco Cessation:Counseling Given: Not Answered Alcohol Use Standard Drinks/Week Comments Never 0 [...] the past 12 months, has t he [employer], gas, oil or water company threatened to [...] not to disclose 2021 10:16 AM EDT Last Filed Vital Signs Vital Sign Reading Time Taken Comments Blood Pressure 144/85 02/25/2025 11:01 AM EDT Pulse 84 02/25/2025 11:01 AM EDT Temperature 36.9 ??C (98.4 ??F) 02/25/2025 11:01 AM E DT Respiratory Rate 16 03/24/2023 9:25 AM EDT Oxygen Saturation 100% 02/25/2025 11:01 AM EDT Inhaled Oxygen Concentration - - Weight 85.3 kg (188 lb) 02/18/2025 1:11 PM EDT Height 160 cm (5' 3 ) 03/24/2023 9:25 AM EDT Body Mass Index 33.3 03/24/2023 9:25 AM EDT Plan of Treatment Upcoming Encounters Date Type Department Care Team (Late st Contact Info) Description 03/03/2025 2:30 PM EDT Office Visit [facility] MEDICINE [address] [place] [phone] Elizabeth Dean NP [address] [place] [address] 03/04/2025 10:30 AM EDT Clinical Support [address] [phone] Julia Lu, RN Health Maintenance Due Date Last Done Comments CT Colonography 1973 Colonoscopy 1973 Colorectal Cancer Screening 1973 Dental Oral Exam 1973 Dental Prophylaxis 1973 Dental X-Ray: Bitewings 1973 Dental X-Ray: Full Mouth 1973 FIT DNA/Cologuard 1973 FIT 1973 FOBT 1973 Sigmoidoscopy 1973 Family Planning (PISQ) 1988 Pneumococcal Vaccine: 50+ Years (2 of 2 - PCV) 01/06/2008 01/05/2007 Zoster Vaccines (1 of 2) 2023 DTaP/Tdap/Td Vaccines (2 - Td or Tdap) 09/20/2023 09/20/2013, 06/26/2007 COVID-19 Vaccine ( season) 2024 11/08/2022, 02/01/2021 Influenza Vaccine (#1) 2024 , 08/22/2019, 11/22/2018, Additional history exists Mammogram 09/16/2024 09/16/2022, 08/06/2018 Cervical Cancer Screening 03/27/2025 HPV/Cotest 03/27/2025 03/27/2020 Pap Smear 03/27/2025 03/27/2020 Alcohol/Substance Use Screening 02/18/2026 02/18/2025 Depression Screening 02/18/2026 02/18/2025, 02/19/20 25 SDOH Screening 02/18/2026 02/18/2025 Tobacco Screening 02/18/2026 02/18/2025 Lipid Panel 03/01/2028 03/01/2023, 02/05, 11/10/2020 RSV Patients and Patients Aged 60 years or older (1 - 1-dose 75+ series) 2048 Hepatitis B Vaccines Completed 06/26/2007, 02/06/2007, 01/05/2007 HIV Screening Completed 09/20/2022 Hepatitis C Screening Completed 09/20/2022 HIB Vaccines Aged Out No longer eligi [...] patient's age to complete this topic Meningococcal Vaccine Aged Out No jimenez jolene eligible based on patient's age to complete this topic RSV under 20 months Aged Out No longe r eligible based on patient's age to complete this topic Rotavirus Vaccines Aged Out No longer eligible based on patient's age to complete this topic Procedures Procedure Name Priority Date/Time Associated Diagnosis Comments POCT PERLA-14 URINE DRUG SCREEN Routine 02/25/2025 10:14 AM EDT Uncomplicated opioid dependence (CMS/HCC) POCT PERLA-14 URINE DRUG SCREEN Routine 02/18/2025 1:03 PM EDT Opioid type dependence, continuous (CMS/HCC) LIPID PANEL, STANDARD Routine 03/01/2023 11:10 AM EDT Cramps of lower extremity Hypoglycemia Primary hypertension ZZZ HISTORICAL HEPATITIS C AB W/REFL TO HCV RNA, QN, PCR Routine 09/20/2022 9:25 AM EST HIV 1/2 ANTIGEN/ANTIBODY, FOURTH GENERATION W/RFL Routine 09/20/2022 9:25 AM EST MAMMOGRAM GENERIC Routine 09/16/2022 1:3 2 PM EST HM PAP/HPV Routine 03/27/2020 from Last 3 Months or Most Recently Relevant to Health Maintenance Results * POCT PERLA-14 Urine Drug Screen (02/25/2025 10:14 AM EDT) Only the most recent of2 resultswithin the time period is included. THC Negative Cocaine Screen, Urine Negative Opiate [...] procedure / Unknown 02/25/2025 10:14 AM EDT Porfirio Saldivar MD POINT OF CARE TEST ENTER/EDIT ORDERABLES Final Result * Lipid Panel, Standard (03/01/2023 11:10 AM EDT) Cholesterol, Total 159 <200 mg/dL [email or web address] [facility] [facility] HDL Cholesterol 79 > OR = 50 mg/dL [email or web address] [facility] Triglycerides 44 <150 mg/dL [email or web address] [facility] [facility] LDL Cholesterol 67 mg/dL (calc) [facility] [employer] [facility] Comment: Reference range: <100 Desirable range <100 mg/dL for primary prevention; ?? <70 mg/dL for patients with CHD or diabetic patients with > or = 2 CHD risk factors. LDL-C is now calculated using the Jordan calculation, which is a validated novel method providing better accuracy than the Friedewald equation in the estimation of LDL-C. Rayray KESSLER et al. GUILLAUME. 2013;310(19): 7180-8275 (http://[employer]/faq/VQY423) Chol/HDLC Ratio 2.0 <5.0 (calc) [email or web address] [facility] Non-HDL Cholesterol 80 <130 mg/dL (calc) [email or web address] [facility] [facility] Comment: For patients with diabetes plus 1 major ASCVD risk factor, treating to a non-HDL-C goal of <100 mg/dL (LDL-C of <70 mg/dL) is considered a therapeutic option. Blood Venous blood specimen / Unknown 03/01/2023 11:10 AM EDT 03/01/2023 11:11 AM EDT Narrative [facility] - 03/04/2023 6:21 AM EDT FASTING:NO FASTING: NO Kyra Doyle MD LAB BLOOD ORDERABLES Final Result [facility] [address], [place] [address] [email or web address] [facility] [address] [place] [address] * HEPATITIS C AB W/REFL TO HCV RNA, QN, PCR (09/20/2022 9:25 AM EST) HEPATITIS C ANTIBODY NON-REACTI VE NON-REACT GIGI CONVERTED LEGACY LABS INDEX 0.05 <1.00 CONVERTED LEGACY LABS Comment: ?? HCV antibody was non-reactive. There is no laboratory ?? evidence of HCV infection. ?? In most cases, no further action is required. However, if recent HCV exposure is suspected, a test for HCV RNA (test code 01468) is suggested. ?? For additional information please refer to http://[facility].[employer]/faq/ONB39v1 (This link is being provided for informational/ educational purposes only.) ?? 09/20/2022 9:25 AM EST us Porfirio Saldivar MD HISTORICAL/NON ORDERABLE LABS Final Result Performing Organization Address [facility] Co de Phone Number CONVERTED LEGACY LABS * HIV 1/2 ANTIGEN/ANTIBODY,FOURTH GENERATION W/RFL (09/20/2022 9:25 AM EST) HIV-1/2 ANTIGEN AND ANTIBODIES, 4TH GENERATION W/ REFLEX NON-REACT GIGI NON-REACT GIGI CONVERTED LEGACY LABS Comment: HIV-1 antigen and HIV-1/HIV-2 antibodies were not detected. There is no laboratory evidence of HIV infection. ?? PLEASE NOTE: This information has been disclosed to you from records whose confidentiality may be protected by state law. ??If your state requires such protection, then the state law prohibits you from making any further disclosure of the information without the specific written consent of the person to whom it pertains, or as otherwise permitted by law. A general authorization for the release of medical or other information is NOT sufficient for this purpose. ? For additional information please refer to http://education.[employer]/faq/YAY118 (This link is being provided for informational/ educational purposes only.) ? The performance of this assay has not been clinically validated in patients less than 2 years old. ?? 09/20/2022 9:25 AM EST Porfirio Saldivar MD LAB BLOOD ORDERABLES Final Res ult Performing Organization Address [facility] Co de Phone Number CONVERTED LEGACY LABS * Mammography Report 1 (09/16/2022 1:32 PM EST) Anatomical Region Laterality Modality Breast Bilateral Mammography 09/16/2022 1:32 PM EST Narrative 09/19/2022 4:00 PM EST Refer to the Notes tab for result details Legacy Procedure: Mammography Report 1 Procedure Note ProviderDiogo MD - 01/29/2023 Refer to the Notes tab for result details Legacy Procedure: Mammography Report 1 Kyra Doyle MD IMG BI PROCEDURES Fin al Result * Hm Pap Smear (03/27/2020) Pap Negative for intraephithelial lesion or malignancy Negative for intraephithelial lesion or malignancy, Other HPV Undetected Undetected, Indeterminate, Quantitative, Not Detected Historical Provider HEALTH MAINTENANCE Final Result from Last 3 Months or Most Recently Relevant to Health Maintenance Insurance [facility] Care Teams Whey Department Operator Relationship Specialty Start Date End Date Elizabeth Dean NP [address] [place] [address] PCP - General Family Medicine 02/25/25
--- OUTSIDE RECORDS SUMMARY | 2025-02-25 16:41 | XMS_ITS | Encounter Summary ---
Author Organization [employer] Address [address] [facility] [address]t [place] [address] Care Team Providers Care Park Worker Supervisor Name Role Phone Kyra Driscoll MD Primary Care Provide r Elizabeth Dean NP Primary Care Provider [phone] Reason for Visit * Reason Onset Date Comments Durable Medical Equipment 03/28/2023 Encounter Details Date Type Department Care Team (Late st Contact Info) Description 03/28/2023 Telephone [facility] [address] [place], [place] [phone] Kyra Driscoll MD [address] [place], [place] [phone] Durable Medical Equipment Social History Tobacco Use Types Packs/Day Years [...] suspected to have Coronavirus/COVID-19? No / Unsure 03/24/2023 8:57 AM EDT documented as of this encounter Miscellaneous Notes * Telephone Encounter - Kiera Nice - 03/28/2023 1:35 PM EDT Script for pull ups generated for signature * Telephone Encounter - Kieraleeanna Nice - 03/28/2023 9:46 AM EDT Please review DME request for pull ups and advise, thank you. * Telephone Encounter - Sariah Lynn - 03/28/2023 9:38 AM EDT Tc from pt requesting a new script for pull up size M. documented in this encounter Plan of Treatment Upcoming Encounters Date Type Department Care Team (Late st Contact Info) Description 03/03/2025 2:30 PM EDT Office Visit [address] [address] Elizabeth Dean NP [address] [place] [phone] 03/04/2025 10:30 AM EDT Clinical Support [address] [address] Julia Lu, BEN documented as of this encounter Visit Diagnoses Not on filedocumented in this encounter Care Teams Park Worker Supervisor Relationship Specialty Start Date End Date Kyra Driscoll MD [address] [place] [address] PCP - General Family Medicine 06/03/19 03/03/24 Elizabeth Dean NP [address] [place] [address] PCP - General Family Medicine 02/25/25 documented as of this encounter
--- OUTSIDE RECORDS SUMMARY | 2025-02-25 16:41 | XMS_ITS | Encounter Summary ---
Author Organization [employer] Address [address] [place] [address] 7[address] [place] [address] Care Team Providers Care Student Life Coordinator Name Role Phone Kyra Driscoll MD Primary Care Provide r Elizabeth Dean NP Primary Care Provider [phone] Reason for Visit * Reason Comments Med Refill Encounter Details Date Type Department Care Team (Late st Contact Info) Description 05/23/2023 Refill [facility] MEDICINE [address] [place] [address] [phone] Nurys Mcdonnell MD [address] [place], [place] [phone] COPD (chronic obstructive pulmonary disease) with chronic bronchitis ([facility]/HCC) Social History Tobacco Use Types Packs/Day Years [...] Description 03/03/2025 2:30 PM EDT Office Visit [facility] [address] [place] [address] [phone] Elizabeth Dean NP [address] [place] [address] 03/04/2025 10:30 AM EDT Clinical Support [facility] [address] [place] [address] Julia Lu RN documented as of this encounter Visit Diagnoses Diagnosis COPD (chronic obstructive pulmonary disease) with chronic bronchitis (CMS/HCC) documented in this encounter Care Teams Student Life Coordinator Relationship Specialty Start Date End Date Kyra Driscoll MD [address] [place] [address] PCP - General Family Medicine 06/03/19 03/03/24 Elizabeth Dean NP [address] [place] [address] PCP - General Family Medicine 02/25/25 documented as of this encounter
--- OUTSIDE RECORDS SUMMARY | 2025-02-25 16:41 | XMS_ITS | Encounter Summary ---
Author Organization [employer] Address [address] [facility] 7t [place] [address] Care Team Providers Care Title I Director Name Role Phone Kyra Driscoll MD Primary Care Provide r Elizabeth Dean NP Primary Care Provider [phone] Reason for Visit * Reason Comments Med Refill Encounter Details Date Type Department Care Team (Late Contact Info) Description 06/07/2023 Refill [facility] [address] [place], [place] [phone] Rachel Cash FNP [address] [place], [place] [phone] Allergy, subsequent encounter Social History Tobacco Use [...] Description 03/03/2025 2:30 PM EDT Office Visit [facility] [address] [place], [place] [phone] Elizabeth Dean NP [address] [place], [place] [phone] 03/04/2025 10:30 AM EDT Clinical Support [facility] [address] [place] [address] Julia Lu RN documented as of this encounter Visit Diagnoses Diagnosis Allergy, subsequent encounter documented in this encounter Care Teams Title I Director Relationship Specialty Start Date End Date Kyra Driscoll MD [address] [place] [address] PCP - General Family Medicine 06/03/19 03/03/24 Elizabeth Dean NP [address] [place] [address] PCP - General Family Medicine 02/25/25 documented as of this encounter
--- OUTSIDE RECORDS SUMMARY | 2025-02-25 16:41 | XMS_ITS | Encounter Summary ---
Author Organization [employer] Address [address] [facility] 7t [place] [address] Care Team Providers Care Heatset Winder Operator Name Role Phone Kyra Driscoll MD Primary Care Provide r Elizabeth Dean NP Primary Care Provider [phone] Reason for Visit * Reason Comments Med Refill Encounter Details Date Type Department Care Team (Late Contact Info) Description 05/23/2023 Refill [facility] [address] [place], [place] [phone] Kyra Driscoll MD [address] [place], [place] [phone] Social History Tobacco Use Types Packs/Day Years [...] Description 03/03/2025 2:30 PM EDT Office Visit [facility] MEDICINE [address] [place], [place] [phone] Elizabeth Dean NP [address] [place], [place] [phone] 03/04/2025 10:30 AM EDT Clinical Support [facility] MED[facility]INE [address] [place] [address] Julia Lu RN documented as of this encounter Visit Diagnoses Not on filedocumented in this encounter Care Teams Heatset Winder Operator Relationship Specialty Start Date End Date Kyra Driscoll MD [address] [place] [address] PCP - General Family Medicine 06/03/19 03/03/24 Elizabeth Dean NP [address] [place] [address] PCP - General Family Medicine 02/25/25 documented as of this encounter
== END 2025-02-25 13:56 | disposition home or self-care (01) ==
LOC: HO.HHCLNP 13:55
PROVIDERS: Visit Provider Emergency Medicine
DX: F11.20 Opioid dependence, uncomplicated (principal)
CPT/HCPCS: G0480

== ENCOUNTER 2025-03-03 16:39 | Emergency (ER) | payer MEDICARE, SELFPAY ==
--- NOTE | ~2025-03-03 | XR_ITS ---
CLINICAL HISTORY: CP , asthma 1 view chest x-ray Comparison: CR/SR - XR CHEST 2V - 12/22/22 13:38 EST Findings: The lungs are clear. Heart size is normal. No acute fracture. There are surgical clips overlying the left upper quadrant. IMPRESSION: 1. No acute findings. This document has been electronically signed by: Kelli Fowler MD on 03/03/2025 17:20:08
[2025-03-03 16:52] VITALS: BP 123/76; BP 131/75; PULSE 86; PULSE 93; RESP 20; TEMP 37; O2SAT 100; O2SAT 99; BMI 23.4
[2025-03-03 16:58] LABS: Glucose, Whole Blood 107 mg/dL (60-115)
--- NOTE | 2025-03-03 17:02 | ECG_ITS ---
Test Reason : CP Blood Pressure : */* mmHG Vent. Rate : 84 BPM Atrial Rate : 84 BPM P-R Int : 142 ms QRS Dur : 106 ms QT Int : 368 ms P-R-T Axes : 62 -2 10 degrees QTcB Int : 434 ms Normal sinus rhythm Incomplete right bundle branch block Cannot rule out Anterior infarct , age undetermined Abnormal ECG When compared with ECG of 22-Dec-2022 13:24, No significant change was found Referred By: Samantha Pike Electronically Signed By: Livan Villa
--- NOTE | 2025-03-03 17:03 | ED_ITS ---
HPI - SOB/Dyspnea General Chief Complaint: Dyspnea Stated Complaint: sob hx low bgl, poc 52 Time Seen by Provider: 03/03/25 16:53 Source: patient Mode of arrival: ambulatory Limitations: no limitations History of Present Illness ED Provider: Dr. Samantha Pike HPI Narrative: Patient comes to the emergency room, referred from [facility]. Patient states that she has been having pain in his perforation for about 1 week. Patient states that otherwise, she has no chest pain. Patient states she has been having frequent asthma exacerbations, using her inhaler more frequent. Patient states that she has not been diagnosed with COPD. Patient has never smoked but admits that she has been exposed extensively to secondhand smoke. Patient denies any lower extremity pain, no leg swelling, patient denies any chest pain or palpitations. Patient denies any recent history of traveling or sitting for a prolonged period of time Related Data Home Medications ?Medication ?Instructions ?Recorded ?Confirmed albuterol sulfate 90 mcg/actuation 2 puff inhalation Q4-6H PRN 08/06/20 02/21/23 aerosol inhaler Wheezing buprenorphine 8 mg-naloxone 2 mg 2 film sublingual DAILY 08/06/20 02/21/23 sublingual film (Suboxone) fluticasone propionate 50 1 spray intranasal DAILY 08/06/20 02/21/23 mcg/actuation nasal spray,suspension [id number] fumarate 18 1 tab-cap PO BID 08/06/20 02/21/23 mg-FA 600 mcg-vit K 40 mcg capsule (Multi For Her) pantoprazole 40 mg tablet,delayed 40 mg PO DAILY 08/06/20 02/21/23 release buspirone 15 mg tablet 15 mg PO BID 03/02/21 02/21/23 vitamin E (dl, acetate) 45 mg (100 100 unit PO BEDTIME 03/02/21 02/21/23 unit) capsule glucose 4 gram chewable tablet 4 g PO DIRECTED hypoglycemia 03/03/21 02/21/23 lancets 33 gauge #100 ea 03/03/21 02/21/23 montelukast 10 mg tablet 10 mg PO QPM 03/03/21 02/21/23 oxcarbazepine 600 mg tablet 600 mg PO BID 05/07/21 02/21/23 albuterol sulfate 2.5 mg/3 mL 1 amp inhalation Q6H PRN Wheezing 12/01/21 02/21/23 (0.083 %) solution for nebulization ascorbic acid (vitamin C) 250 mg 1 tab PO TID 12/01/21 02/21/23 tablet (Vitamin C) epinephrine 0.3 mg/0.3 mL IM DIRECTED 12/01/21 02/21/23 injection, auto-injector ferrous sulfate 325 mg (65 mg 325 mg PO BID 12/15/21 02/21/23 iron) tablet (Feosol) clonazepam 1 mg tablet 1 mg PO BID 09/13/22 02/21/23 diphenhydramine HCl 25 mg tablet 0 mg PO 09/13/22 02/21/23 (Colleen-Dryl) fexofenadine 180 mg tablet 180 mg PO DAILY 09/13/22 02/21/23 (Allergy Relief (fexofenadine)) ketotifen fumarate 0.025 % (0.035 1 drp ophthalmic (eye) BID 09/13/22 02/21/23 %) eye drops ondansetron 4 mg disintegrating 4 mg PO Q12H 09/13/22 02/21/23 tablet cyanocobalamin (vitamin B-12) 1,000 mcg PO DAILY 10/19/22 02/21/23 1,000 mcg tablet docusate sodium 100 mg capsule 100 mg PO DAILY 10/19/22 02/21/23 mirtazapine 30 mg tablet 30 mg PO BEDTIME 10/19/22 02/21/23 sumatriptan succinate 25 mg tablet 25 mg PO DAILY PRN 10/19/22 02/21/23 meclizine 25 mg tablet mg PO PRN 12/15/22 02/21/23 Previous Rx's ?Medication ?Instructions ?Recorded alcohol swabs (Alcohol Prep Pads) 1 pad topical DIRECTED #100 pad 10/06/20 dicyclomine 10 mg capsule 10 mg PO .prn 30 days #30 caps 05/31/21 Breo Ellipta 200 mcg-25 mcg/dose 1 ea inhalation DAILY #60 ea 01/10/22 powder for inhalation (fluticasone furoate-vilanterol) ergocalciferol (vitamin D2) 1,250 1,250 mcg PO 2XW 30 days #9 caps 05/20/22 mcg (50,000 unit) capsule folic acid 1 mg tablet 1 mg PO DAILY #90 tabs 10/19/22 methotrexate (PF) 25 mg/0.5 mL 25 mg (0.5 mL) subcut QWEEK #2 mL 10/19/22 subcutaneous auto-injector (Rasuvo (PF)) blood-glucose meter #1 ea 11/21/22 flash glucose sensor (FreeStyle #2 ea 11/24/22 Cindy 2 Sensor kit) flash glucose scanning reader #1 ea 12/22/22 (FreeStyle Cindy 2 [place]) flash glucose sensor (FreeStyle #1 ea 12/22/22 Cindy 2 Sensor kit) flash glucose scanning reader #1 ea 12/27/22 (FreeStyle Cindy 2 [place]) gabapentin 400 mg capsule 400 mg PO TID #90 caps 02/14/23 tizanidine 4 mg tablet 4 mg PO TID PRN for muscle spasm 03/10/23 #90 tabs vitamin A palmitate 3,000 mcg 3,000 mcg PO DAILY #60 caps 03/10/23 (10,000 unit) capsule cholecalciferol (vitamin D3) 50 50 mcg PO DAILY 30 days #30 caps 04/20/23 mcg (2,000 unit) capsule hydroxychloroquine 200 mg tablet 200 mg PO QAM #90 tabs 05/23/23 Enbrel SureClick 50 mg/mL (1 mL) 50 mg subcut QWEEK #4 mL 08/23/23 subcutaneous pen injector (etanercept) ibuprofen 600 mg tablet 600 mg PO TID PRN pain #20 tabs 03/03/25 Allergies Allergy/AdvReac Type Severity Reaction Status Date / Time latex [LATEX] Allergy Intermediate RASH Verified 03/03/25 16:55 ENVIROMENTAL Allergy Intermediate HAYFEVER Uncoded 03/03/25 16:55 Food Allergy Formula Allergy Unknown Anaphylaxis Uncoded 03/03/25 16:55 Onions Allergy Unknown Anaphylaxis Uncoded 03/03/25 16:55 seasonal allergies Allergy Unknown Difficulty Uncoded 03/03/25 16:55 Breathing shellfish Allergy Unknown Anaphylaxis Uncoded 03/03/25 16:55 Review of Systems 2 Review of Systems: Constitutional : No Weight loss, No Fever, No Chills, No Night Sweats, No Fatigue, No Malaise ENT/Mouth : No Hearing loss, No Ear Pain, No Nasal Congestion, No Sinus Pain, No Hoarseness, No sore throat, No Rhinorrhea, No Swallowing Difficulty Eyes: No Eye Pain, No Swelling, No Redness, No Foreign Body, No Discharge, No Vision Changes Cardiovascular : Complaining of substernal chest pain with deep inspiration, otherwise no chest pain., No SOB, No Dyspnea on Exertion, No Orthopnea, No Edema, No Palpitations Respiratory : No Cough, No Sputum, No Wheezing, No Smoke Exposure, No Dyspnea Gastrointestinal : No Nausea, No Vomiting, No Diarrhea, No Constipation, No abdominal Pain, No Hematochezia, No Melena Genitourinary : no irregular bleeding, No Dysuria, No Urinary Frequency, No Hematuria, No Urinary Incontinence, No Urgency, No Flank Pain, No Urinary Flow Changes, No Hesitancy Musculoskeletal : No joint pain, No Myalgias, No Joint Swelling Skin : No Skin Lesions, No rash Neuro : No Weakness, No Numbness, No Paresthesias, No Loss of Consciousness, No Dizziness, No Headache Psych : No Anxiety/Panic, No Depression, No SI/HI/AH/VH, No Social Issues, Heme/Lymph: No Bruising, No Bleeding,No Lymphadenopathy Endocrine : No Polyuria, No Polydipsia, No Temperature Intolerance PMFSH Past Medical History Medical History Hypoglycemia Panniculitis Nausea Cellulitis Postoperative nausea and vomiting Migraine History of irregular heartbeat History of opioid abuse History of schizophrenia History of bipolar disorder History of seizures Sprain of ankle, right Obstructive sleep apnea Elevated cortisol level Hypoglycemia Epigastric abdominal pain Asthma Anemia Fibromyalgia Depression Hypertension Kidney calculi Carpal tunnel syndrome on both sides Surgical History S/P panniculectomy S/P thighplasty S/P brachioplasty History of back surgery History of endometrial ablation History of blepharoplasty H/O esophagogastroduodenoscopy H/O colonoscopy H/O section History of knee surgery H/O tubal ligation H/O hemorrhoidectomy H/O abdominoplasty History of bilateral breast reduction surgery H/O gastric bypass Family History Family History Father Diabetes HTN (hypertension) Cancer Heart disease Mother Cancer Diabetes HTN (hypertension) Social History Social History Household Members: Children Household Members Other:: daughter Are you a primary cna caregiver to a significant other at home: No Do you presently have visiting nurse or other home services: 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 Oriented X3. No acute distress. Eyes: Pupils equal, round and reactive to light. ENT: Pharynx normal. Neck: Normal inspection. Neck supple. No lymph nodes noted. No crepitus CVS: Normal heart rate and rhythm. Pulses normal. Normal S1 and S2 Respiratory: No respiratory distress. Breath sounds normal. No Wheezing. No rales , no chest pain to palpation Abdomen: Soft and nontender. No rigidity. No distention. Skin: Skin warm and dry. Normal skin color. Normal skin turgor. Extremities: No lower extremity edema. No Lacerations. No Rash Neuro: Oriented X 3. No motor deficit. No sensory deficit. Moving all extremities. No slurred speech. CN 2 through 12 grossly intact Psych: calm, cooperative, normal affect Course Course Course Narrative: Patient's blood pressure 123/76, heart rate 86, respirations 20, oxygen saturation 100% on room air At this time patient is asymptomatic, denies any chest pain at this time. Denies shortness of breath. Patient states that she does have episodes of hypoglycemia, patient is not diabetic. Patient states that since she had her gastric bypass surgery, her glucose tends to drop. Patient denies any symptoms at this time. Glucose 107 Medical Decision Making Medical Decision Making [facility] Narrative: my interpretation of labs: At baseline hematology and chemistry, D-dimer negative, BNP negative chest x-ray negative Wells criteria score for pulmonary embolism is 0 vitals: Blood pressure 123/76, heart rate 86, respirations 20, temperature 98.6 degrees, oxygen saturation 100% on room air patient likely has pleuritic chest pain Differential Diagnosis Differential Diagnoses: The differential diagnosis associated with the presentation includes ( pleurisy, musculoskeletal pain, costochondritis, less likely PE) Admission/Observation Consideration of admission/observation: Escalation of care including admission/observation considered ( given patient's symptoms, observation was considered) Lab Data MDM Lab Attestation statement: I reviewed the patient's lab results. 03/03/25 17:39 03/03/25 17:39 Labs: Lab Results 03/03/25 03/03/25 03/03/25 Range/Units 16:54 17:39 17:48 WBC 7.8 (4.8-10.8) X10*3/uL RBC 4.03 L (4.20-5.50) X10*6/uL Hgb 12.2 (12.0-16.0) g/dl Hct 36.5 L (37.0-47.0) % MCV 90.6 (80.0-98.0) fL MCH 30.3 (27.0-33.0) pg MCHC 33.4 (31.0-35.0) g/dl RDW 12.0 (11.0-16.0) % Plt Count 174 D (160-400) X10*3/uL MPV 9.6 (9.4-12.3) fL Immature Gran % (Auto) 0.3 (0.0-0.4) % Neut % (Auto) 74.4 H (45-73) % Lymph % (Auto) 17.1 L (20-40) % [place] % (Auto) 5.9 (2-11) % Eos % (Auto) 1.9 (0-4) % Baso % (Auto) 0.4 (0-2) % Lymph # (Auto) 1.3 (1.2-4.9) X10*3/uL [place] # (Auto) 0.5 (0.1-1.2) X10*3/uL Eos # (Auto) 0.2 (0.0-0.4) X10*3/uL Baso # (Auto) 0.0 (0.0-0.2) X10*3/uL Abs Immat Gran (auto) 0.02 (0.00-0.03) X10*3/uL Absolute Neuts (auto) 5.8 (2.0-8.3) x10*3/uL Absolute Nucleated RBC 0.000 (0.0-0.012) X10*3/uL Nucleated RBC % (auto) 0.0 (0.0-0.2) /100WBC D-Dimer High Sensitivty < 150 NG/ML Sodium 140 (135-145) mmol/L Potassium 4.3 (3.3-5.1) mmol/L Chloride 106 (96-108) mmol/L Carbon Dioxide 25 (22-29) mmol/L Anion Gap 13 (12-20) BUN 8 L (9-16) mg/dL Creatinine 0.69 (0.5-1.4) mg/dL Estim Creat Clear Calc 90.3 Estimated GFR > 60 POC Glucose 107 91 (60-115) mg/dL Random Glucose 102 (60-115) mg/dL Calcium 8.6 (8.4-10.2) mg/dL Total Bilirubin 0.2 (0.0-1.0) mg/dL Direct Bilirubin < 0.2 (0.0-0.5) mg/dL AST 45 H (5-31) U/L ALT 24 (0-31) U/L Alkaline Phosphatase 143 H (39-117) U/L Troponin I High Sens 3.2 (<3.5-17.0) ng/L B-Natriuretic Peptide 26 (<100) pg/mL Total Protein 6.6 (6.5-8.0) g/dL Albumin 3.7 (3.5-5.0) g/dL Independent Interpretation I performed an independent interpretation of an: EKG ( my interpretation of EKG, normal sinus rhythm, heart rate 84, no ST segment depression or elevation, nonspecific T-wave inversion in lead 3, QTC 434) Critical Care Time Critical Care Time Critical Care Time: Yes Total Critical Care Time: 35 Attestation: I have personally provided critical care time. Time includes review of lab data, radiology results, discussion with consultants, and monitoring for potential decompensation. Intervention performed as documented. Discharge Plan Discharge Clinical Impression: Pleurisy Patient Disposition: Home, Self-Care Instructions: Pleurisy (ED) Additional Instructions: Please follow-up with your primary care physician tomorrow. If you have any worsening or new symptoms, please return to the emergency room or call 911 Prescriptions: New ibuprofen 600 mg tablet 600 mg PO TID PRN (Reason: pain) Qty: 20 0RF No Action alcohol swabs [Alcohol Prep Pads] Pads, Medicated 1 pad topical DIRECTED Qty: 100 5RF dicyclomine 10 mg capsule 10 mg PO .prn 30 Days Qty: 30 1RF Breo Ellipta 200-25 mcg/dose blister with device 1 ea inhalation DAILY Qty: 60 0RF (DME) blood-glucose meter Kit See Rx Instructions Not Applicable BID Qty: 1 0RF Rx Instructions: As directed (DME) FreeStyle Cindy 2 Sensor Kit See Rx Instructions .ROUTE .MEDSUPPLY Qty: 2 11RF Rx Instructions: Once every 14 days (DME) FreeStyle Cindy 2 [place] Misc See Rx Instructions .ROUTE .MEDSUPPLY Qty: 1 0RF Rx Instructions: As directed gabapentin 400 mg capsule 400 mg PO TID Qty: 90 2RF vitamin A palmitate 3,000 mcg (10,000 unit) capsule 3,000 mcg PO DAILY Qty: 60 0RF cholecalciferol (vitamin D3) 50 mcg (2,000 unit) capsule 50 mcg PO DAILY 30 Days Qty: 30 11RF hydroxychloroquine 200 mg tablet 200 mg PO QAM Qty: 90 1RF Enbrel SureClick 50 mg/mL (1 mL) pen injector 50 mg subcut QWEEK Qty: 4 2RF (DME) FreeStyle Cindy 2 [place] Misc See Rx Instructions .Route Qty: 1 0RF Rx Instructions: As directed (DME) FreeStyle Cindy 2 Sensor Kit See Rx Instructions .Route Qty: 1 0RF Rx Instructions: As directed albuterol sulfate 2.5 mg /3 mL (0.083 %) solution for nebulization 1 amp inhalation Q6H PRN (Reason: Wheezing) epinephrine 0.3 mg/0.3 mL auto-injector IM DIRECTED ascorbic acid (vitamin C) [Vitamin C] 250 mg tablet 1 tab PO TID clonazepam 1 mg tablet 1 mg PO BID Rx Instructions: 1 in am 2 in pm pantoprazole 40 mg tablet,delayed release (DR/EC) 40 mg PO DAILY Multi For Her 18 mg iron-600 mcg-40 mcg capsule 1 tab-cap PO BID fluticasone propionate 50 mcg/actuation spray,suspension 1 spray intranasal DAILY Rx Instructions: administer into each nostril buprenorphine-naloxone [Suboxone] 8-2 mg film 2 film sublingual DAILY Rx Instructions: place 1 strip/tab under (each) side of tongue albuterol sulfate 90 mcg/actuation HFA aerosol inhaler 2 puff inhalation Q4-6H PRN (Reason: Wheezing) vitamin E (dl, acetate) 100 unit capsule 100 unit PO BEDTIME buspirone 15 mg tablet 15 mg PO BID oxcarbazepine 600 mg tablet 600 mg PO BID (DME) lancets 33 gauge misc See Rx Instructions Not Applicable BID Qty: 100 Rx Instructions: As directed montelukast 10 mg tablet 10 mg PO QPM glucose 4 gram tablet,chewable 4 g PO DIRECTED ferrous sulfate [Feosol] 325 mg (65 mg iron) tablet 325 mg PO BID mirtazapine 30 mg tablet 30 mg PO BEDTIME cyanocobalamin (vitamin B-12) 1,000 mcg tablet 1,000 mcg PO DAILY Rasuvo (PF) 25 mg/0.5 mL auto-injector 25 mg subcut QWEEK Qty: 2 3RF folic acid 1 mg tablet 1 mg PO DAILY Qty: 90 1RF meclizine 25 mg tablet PO PRN fexofenadine [Allergy Relief (fexofenadine)] 180 mg tablet 180 mg PO DAILY ondansetron 4 mg tablet,disintegrating 4 mg PO Q12H ketotifen fumarate 0.025 % (0.035 %) drops 1 drp ophthalmic (eye) BID diphenhydramine HCl [Colleen-Dryl] 25 mg tablet 0 mg PO sumatriptan succinate 25 mg tablet 25 mg PO DAILY PRN docusate sodium 100 mg capsule 100 mg PO DAILY ergocalciferol (vitamin D2) 1,250 mcg (50,000 unit) capsule 1,250 mcg PO 2XW 30 Days Qty: 9 11RF tizanidine 4 mg tablet 4 mg PO TID PRN (Reason: for muscle spasm) Qty: 90 2RF Print Language: Lithuanian
[2025-03-03 17:43] LABS: MANUAL DIFF FLAG NO
[2025-03-03 17:46] LABS: Basophils Percent Auto 0.4 % (0-2); Eosinophils Absolute Auto 0.2 X10*3/uL (0.0-0.4); Eosinophils Percent Auto 1.9 % (0-4); Hematocrit 36.5 % (37.0-47.0); Hemoglobin 12.2 g/dl (12.0-16.0); Imm Gran Abs Auto 0.02 X10*3/uL (0.00-0.03); Imm Gran Pct Auto 0.3 % (0.0-0.4); Lymphocytes Absolute Auto 1.3 X10*3/uL (1.2-4.9); Lymphocytes Percent Auto 17.1 % (20-40); Mean Corpuscular HGB Conc 33.4 g/dl (31.0-35.0); Mean Corpuscular Hemoglobin 30.3 pg (27.0-33.0); Mean Corpuscular Volume 90.6 fL (80.0-98.0); Mean Platelet Volume 9.6 fL (9.4-12.3); Monocytes Absolute Auto 0.5 X10*3/uL (0.1-1.2); Monocytes Percent Auto 5.9 % (2-11); Neutrophils Absolute Auto 5.8 x10*3/uL (2.0-8.3); Neutrophils Percent Auto 74.4 % (45-73); Platelet Count 174 X10*3/uL (160-400); Red Blood Count 4.03 X10*6/uL (4.20-5.50); White Blood Count 7.8 X10*3/uL (4.8-10.8)
[2025-03-03 17:52] LABS: Glucose, Whole Blood 91 mg/dL (60-115)
[2025-03-03 17:55] LABS: D Dimer High Sensitivity < 150 NG/ML
[2025-03-03 18:07] LABS: B Type Natriuretic Peptide 26 pg/mL (<100)
[2025-03-03 18:09] LABS: Troponin-I High Sensitivity 3.2 ng/L (<3.5-17.0)
[2025-03-03 18:10] LABS: Alanine Aminotransferase 24 U/L (0-31); Albumin Level 3.7 g/dL (3.5-5.0); Anion Gap 13 (12-20); Aspartate Amino Transferase 45 U/L (5-31); Bilirubin Direct < 0.2 mg/dL (0.0-0.5); Bilirubin Total 0.2 mg/dL (0.0-1.0); Blood Urea Nitrogen 8 mg/dL (9-16); Calcium 8.6 mg/dL (8.4-10.2); Carbon Dioxide 25 mmol/L (22-29); Chloride 106 mmol/L (96-108); Creatinine Clr Calc Pharmacy 90.3; Estimated Glomerular Filt Rate > 60; Glucose Random 102 mg/dL (60-115); Potassium 4.3 mmol/L (3.3-5.1); Sodium 140 mmol/L (135-145); Total Protein 6.6 g/dL (6.5-8.0)
[2025-03-03 18:13] LABS: Alkaline Phosphatase 143 U/L (39-117)
[2025-03-03 18:59] VITALS: BP 123/76; PULSE 86; RESP 20; TEMP 37; O2SAT 100
--- OUTSIDE RECORDS SUMMARY | 2025-03-03 19:08 | XMS_ITS | Clinical Summary ---
[facility] [address] [place] [address] Care Team Providers Care Medical Records Auditor Name Role Phone Kyra Driscoll MD Primary Care Provide r Surgical History Surgery Date Site/Laterality Comments TUBAL LIGATION 2006 Bilateral PROCEDURE: HISTORICAL TUBAL LIGATION OTHER SURGICAL HISTORY 2006 PROCEDURE: [place] HYSTEROSCOPY ENDOMETRIAL ABLATION GASTRIC BYPASS 2003 PROCEDURE: GASTRIC BYPASS FOR OBESIT; COMMENT: revision 2019 BREAST REDUCTION 2002 PROCEDURE: AK BREAST REDUCTION OTHER SURGICAL HISTORY 2009 PROCEDURE: ---- HEMORRHOIDS ---- CARPAL TUNNEL RELEASE 2010 PROCEDURE: AK NEUROPLASTY &/TRANSPOS MEDIAN NRV CARPAL TUNNE KNEE ARTHROPLASTY Right PROCEDURE: AK ARTHRS KNEE ABRASION ARTHRP/SUPERVISOR LENS GENERATING DRLG/MICROFX BACK SURGERY PROCEDURE: HISTORICAL BACK SURGERY; COMMENT: lower back ? 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 ([facility] V24, [facility] V28) DX:Opioid depend w opioid-in maxime psychotic disorder w delusions ([facility]) Back pain DX:Back pain Cramps of lower extremity DX:[employer] mps of lower extremity Gastric bypass status for obesity DX:Gastric bypass status for obesity Knee pain DX:Knee pain Back pain DX:Back pain Systolic murmur DX:Systolic murm ur Seizure disorder ([facility] V2 4, [facility] V28) DX:Seizure disorder ([facility]) Bilateral hearing loss DX:Bilate ral hearing loss Bronchitis DX:Bronchitis Migraine DX:Migraine Scalp psoriasis DX:Scalp psorias is Bipolar 1 disorder (CMS/[facility] V24, [facility]/HCC V28) DX:Bipolar 1 disorder (HCC) Family [...] RESULTING AGENCY - 03/27/2020 12:15 PM EDT [id number] THINPREP PAP, IMAGED: NEGATIVE FOR SQUAMOUS INTRAEPITHELIAL LESION AND MALIGNANCY . REACTIVE CELLULAR CHANGES. PRATEEK WORRELL , CT(ASCP) (CASE SCREENED 03 25 [...] Recently Relevant to Health Maintenance Care Teams Medical Records Auditor Relationship Specialty Start Date End Date Kyra Driscoll MD [address] [id number] PCP - General Internal Medicine 08/13/21
--- OUTSIDE RECORDS SUMMARY | 2025-03-03 19:08 | XMS_ITS | Clinical Summary ---
Author Organization [employer] Address [address] [facility] 7t [place] [address] Care Team Providers Care Sueding Machine Operator Name Role Phone Elizabeth Dean MARCO Primary Care Provider [phone] Allergies Active Allergy Reactions Criticality Noted Date [...] evening. 021 Active Blood Glucose Monitoring Suppl (Kaos Solutionsyle [place] Lite) w/Device kit USE DIRECTED 023 Active [...] AT BEDTIME 023 Active Continuous Blood Gluc Operations Intelligence (Pond BiofuelsStyle Cindy 2 [place]) device USE DIRECTED 01/20/2 023 Active Continuous Blood Gluc Sensor (FreeStyle Cindy 2 Sensor) [facility] USE DIRECTED. CHANGE EVERY 14 DAYS Active [...] Take 240 mg by mouth. Active fluocinolone ([place]-Smoothe) 0.01 % external oil apply by topical [...] MORNING AND IN THE EVENING Active pancrelipase, Vkg-Ftgo-Uumg, (Creon) 9429-1543 units capsule Take 1 capsule by mouth. [...] Active Problems Problem Noted Date Diagnosed Date Tachycardia 03/03/2025 Seizures 02/28/2025 NARCISO positive 02/28/2025 Class 1 obesity 02/28/2025 Migraine 02/28/2025 Hypertension 02/28/2025 GERD (gastroesophageal reflux disease) Viral upper respiratory tract infection 02/26/20 Overproduction of ACTH 01/17/2025 Calculus of gallbladder with acute cholecystitis without obstruction 01/13/2025 Cervical spondylosis without myelopathy 01/14/20 Hospital discharge follow-up 01/13/2025 Incomplete right bundle branch block 01/13/2025 Lumbar radiculopathy 01/13/2025 Mixed bipolar affective disorder, mild Multiple sclerosis 01/13/2025 Spasm 01/13/2025 Systemic lupus erythematosus 01/13/2025 Chest discomfort 01/13/2025 Generalized abdominal pain 01/08/2025 Cholecystitis 01/03/2025 Neuropathic pain 04/04/2023 Assessment & Plan (04/04/2023 [...] and lupus presents with substernal chest pain 08/15 this morning now 05/15 found to be hypertensive with a new [...] has an open endo referral. I called [facility] endo. They said they recently lost 4 or 5 providers so they are booked out until October. They happened to have an open appointment MondayMarch 06 at 1545. [address] [facility], [address], [place]. I called patient and informed her of her appointment. Migraine headache 12/02/2022 Multiple joint pain 12/02/2022 Neck pain 12/02/2022 Obstructive sleep apnea syndrome 12/02/2022 Pain in elbow 12/02/2022 Positive antinuclear antibody 12/02/2022 Rash 12/02/2022 Seropositive rheumatoid arthritis 12/02/2022 Snoring 12/02/2022 Sprain of distal tibiofibular ligament Tear of ulnar collateral ligament of left elbow 12/02/2022 Vertigo 12/02/2022 Atypical chest pain 12/02/2022 Overview (02/28/2025): 47 y/o woman with HTN, and lupus presents with substernal chest pain 10/10 this morning now 7/10 found to be hypertensive with a new right RBB on EKG. Pt is clinically stable. Referred to ER via ambulance for CP with new right RBB. Mixed stress and urge urinary incontinence 03/13 [...] organization. Date Type Department Care Team Description 03/03/2025 2:30 PM EDT Office Visit [facility] [address] [place] [phone] Elizabeth Dean NP Systolic murmur (Primary Dx); Tachycardia 03/03/2025 Travel 02/28/2025 Telephone [facility] [address] [place] [address] [phone] Kenzie Loera MA Chart Prep 02/25/2025 1:00 PM EDT Office Visit [facility] [address] [place] [address] [phone] Elizabeth Dean NP Mild intermittent asthma, unspecified whether complicated (Primary Dx); Viral upper respiratory tract infection; Allergy, initial encounter 02/25/2025 10:15 AM EDT Office Visit [facility] [address] [place] [address] 78052 Porfirio Saldivar MD Uncomplicated opioid dependence (CMS/HCC) (Primary Dx) 02/25/2025 Orders Only [facility] [address] [place] [address] [phone] Porfirio Saldivar MD 02/25/2025 Refill [facility] [address] [place] [address] Julia Lu RN Uncomplicated opioid dependence ([facility]/HCC) 02/25/2025 Travel 02/19/2025 Telephone [facility] [address] [place] [address] 79967 Torres Morillo MD 02/18/2025 1:00 PM EDT Office Visit [facility] [address] [place] [address] [phone] Torres Morillo MD Opioid type dependence, continuous ([facility]/HCC) (Primary Dx) 02/18/2025 Refill [facility] [address] [place] [address] [phone] Julia Lu RN Uncomplicated opioid dependence ([facility]/HCC) 02/18/2025 Travel 02/10/2025 11:30 AM EDT Office Visit [facility] [address] [place] [address] 41933 Julia Lu RN Uncomplicated opioid dependence ([facility]/HCC) 02/10/2025 Refill [facility] [address] [place] [address] 24713 Julia Lu RN Uncomplicated opioid dependence ([facility]/HCC) (Primary Dx) 02/10/2025 Travel 02/05/2025 Telephone [facility] [address] [place] [address] 64979 Daniele Mcfarlane MD New Patient appt. 02/04/2025 Telephone [facility] [address] [place] [address] 32891 Nurys Mcdonnell MD New patient appt from [...] Sign Reading Time Taken Comments Blood Pressure 153/89 03/03/2025 2:41 PM EDT Pulse 111 03/03/2025 2:41 PM EDT Temperature 36.6 ??C (97.8 ??F) 03/03/2025 2:41 PM ED T Respiratory Rate 16 03/03/2025 2:41 PM EDT Oxygen Saturation 97% 03/03/2025 2:41 PM EDT Inhaled Oxygen Concentration - - Weight 86.8 kg (191 lb 6.4 oz) 03/03/2025 2:41 P M EDT Height 160 cm (5' 3 ) 03/03/2025 2:41 PM EDT Body Mass Index 33.9 03/03/2025 2:41 PM EDT Plan of Treatment Upcoming Encounters Date Type Department Care Team (Late st Contact Info) Description 03/04/2025 10:30 AM EDT Clinical Support [facility] [address] [place] [address] 52836 Julia Lu RN 03/11/2025 9:30 AM EDT Office Visit [facility] [address] [place] [address] [phone] Porfirio Saldivar MD [address] [place] [address] [phone] Health Maintenance Due Date Last Done Comments [...] Tdap) 09/20/2023 09/20/2013, 06/26/2007 COVID-19 Vaccine ( - season) 2024 11/08/2022, 02/01/2021 Influenza Vaccine (#1) 2024 , 08/22/2019, 11/22/2018, Additional history exists Mammogram 09/16/2024 09/16/2022, 08/06/2018 Cervical Cancer Screening 03/27/2025 HPV/Cotest 03/27/2025 03/27/2020 Pap Smear 03/27/2025 03/27/2020 Alcohol/Substance Use Screening 02/18/2026 02/18/2025 Depression Screening 02/18/2026 02/18/2025, 02/19/20 SDOH Screening 02/18/2026 02/18/2025 Tobacco Screening 03/03/2026 03/03/2025 Lipid Panel 03/01/2028 03/01/2023, 02/05, 11/10/2020 RSV [...] Procedure Name Priority Date/Time Associated Diagnosis Comments GLUCOSE, WHOLE BLOOD Routine 03/03/2025 5:48 PM EDT XR CHEST 1 VIEW Routine 03/03/2025 5:20 PM EDT ECG 12-LEAD Routine 03/03/2025 2:57 PM EDT Tachycardia OTHER REF TEST - MISC Routine 02/25/2025 11:54 AM EDT POCT PERLA-14 URINE DRUG SCREEN Routine 02/25/2025 [...] Recently Relevant to Health Maintenance Results * Glucose, Whole Blood (03/03/2025 5:48 PM EDT) Glucose, Whole Blood 91 60 - 115 mg/dL [facility] Comment:METER #: [id number] 03/03/2025 5:48 PM EDT 03/03/2025 5:51 PM EDT us Generic External Data Provider LAB BLOOD ORDERAB LES Final Result [facility] [address] [place] [phone] * XR Chest 1 View (03/03/2025 5:20 PM EDT) Anatomical Region Laterality Modality Chest Radiographic Jenna ging 03/03/2025 5:20 PM EDT Narrative 03/03/2025 5:21 PM EDT ? [facility] ?[address] ?[place] [address] ?XRay Report ? Signed ? Patient: Ortiz,Christie N ?MR#: [id number] ?? 29 ? : 1975 ?Acct:[id number] ? Age/Sex: 49 / F ?ADM Date: 04/28/25 ? Loc: HO.ED ? Attending Dr: ? Ordering Physician: Samantha Pike MD ?? Date of Service: 03/03/25 ?? Procedure(s): XR chest 1V ?? Accession Number(s): [id number] ? cc: Elizabeth Dean APPLIED BEHAVIOR SPECIALIST; Samantha Pike MD ? CLINICAL HISTORY: CP , asthma ? 1 view chest x-ray ? Comparison: CR/SR - XR CHEST 2V - 12/22/22 13:38 EST ? Findings: ?? The lungs are clear. ?? Heart size is normal. ?? No acute fracture. ? There are surgical clips overlying the left upper quadrant. ? IMPRESSION: ?? 1. No acute findings. ? This document has been electronically signed by: Kelli Fowler MD on ?? 03/03/2025 17:20:08 ? Dictated By: ?Kelli Fowler MD ? Signed By: ?<Electronically signed by Kelli Fowler MD in OV> ? 03/03/25 1721 ? DD/ 1720 ? TD/TT: 03/03/25 1720 ? Senior Research Engineer: ? Procedure Note Jose Cary - 03/03/[address] [address] XRay Report Signed Patient: Christie Ortiz [facility]#: [id number] [birth year] : 1975Acct:[id number] Age/Sex: 49 / FADM Date: 03/03/25 Loc: .ED Attending Dr: Ordering Physician: Samantha Pike MD Date of Service: 03/03/25 Procedure(s): XR chest 1V Accession Number(s): [id number] cc: Elizabeth Dean APPLIED BEHAVIOR SPECIALIST; Samantha Pike MD CLINICAL HISTORY: CP , asthma 1 view chest x-ray Comparison: CR/SR - XR CHEST 2V - 12/22/22 13:38 EST Findings: The lungs are clear. Heart size is normal. No acute fracture. There are surgical clips overlying the left upper quadrant. IMPRESSION: 1. No acute findings. This document has been electronically signed by: Kelli Fowler MD on 03/03/2025 17:20:08 Dictated By: Kelli Fowler MD Signed By: <Electronically signed by Kelli Fowler MD in OV> 03/03/25 1721 DD/ 1720 TD/TT: 03/03/25 1720 Senior Research Engineer: Result [facility] External Provider IMG XR PROCEDURES Final Result * ECG 12 lead (03/03/2025 2:57 PM EDT) Result [facility] Elizabeth Dean NP ECG ORDERABLES Final Result * Other Reference Test - Misc (02/25/2025 11:54 AM EDT) 02/25/2025 11:5 4 AM EDT 02/25/2025 1:56 PM EDT Narrative [facility] - 02/27/2025 10:45 AM EDT [id number] Result [facility] Porfirio Saldivar MD LAB BLOOD ORDERABLES Final Res ult [facility] [address] [place] [phone] * POCT PERLA-14 Urine Drug Screen (02/25/2025 [...] procedure / Unknown 02/25/2025 10:14 AM EDT Result [facility] Porfirio Saldivar MD POINT OF CARE TEST ENTER/EDIT ORDERABLES Final Result * Lipid Panel, Standard (03/01/2023 11:10 AM EDT) Cholesterol, Total 159 <200 mg/dL [facility] [employer] [facility] [employer] HDL Cholesterol 79 > OR = 50 mg/dL [facility] [place] [employer] Triglycerides 44 <150 mg/dL [facility] [place] [facility] LDL Cholesterol 67 mg/dL (calc) [employer] [place] [facility] Comment: Reference range: <100 Desirable range <100 mg/dL for primary prevention; ?? <70 mg/dL for patients with CHD or diabetic patients with > or = 2 CHD risk factors. LDL-C is now calculated using the Jordan calculation, which is a validated novel method providing better accuracy than the Friedewald equation in the estimation of LDL-C. Rayray SS et al. GUILLAUME. 2013;310(19): 0998-6253 (http://education.Grabhouse/faq/JKQ820) Chol/HDLC Ratio 2.0 <5.0 (calc) [facility] [place] [facility] Non-HDL Cholesterol 80 <130 mg/dL (calc) [employer] [facility] [place] [facility] Comment: For patients with diabetes plus 1 major ASCVD risk factor, treating to a non-HDL-C goal of <100 mg/dL (LDL-C of <70 mg/dL) is considered a therapeutic option. Blood Venous blood specimen / Unknown 03/01/2023 11:10 AM EDT 03/01/2023 11:11 AM EDT Narrative [facility] - 03/04/2023 6:21 AM EDT FASTING:NO FASTING: NO Kyra Doyle MD LAB BLOOD ORDERABLES Final Result [facility] [address], [place] [address] [employer] [place] [facility] [address] [place] [address] * HEPATITIS C AB W/REFL TO HCV [...] a test for HCV RNA (test code 82341) is suggested. ?? For additional information please refer to http://Lessons Only.[employer]./faq/IIL70r3 (This link is being provided for informational/ educational purposes only.) ?? 09/20/2022 9:25 AM EST us Porfirio Saldivar MD HISTORICAL/NON ORDERABLE LABS Final Result [facility] * HIV 1/2 ANTIGEN/ANTIBODY,FOURTH [...] ? For additional information please refer to http://[employer]faq/GLU790 (This link is being provided for informational/ educational purposes only.) ? The performance of this assay has not been clinically validated in patients less than 2 years old. ?? 09/20/2022 9:25 AM EST us Porfirio Saldivar MD LAB BLOOD ORDERABLES Final Res ult [facility] * Mammography Report 1 (09/16/2022 1:32 PM EST) Anatomical Region Laterality Modality Breast Bilateral Mammography 09/16/2022 1:32 PM EST Narrative 09/19/2022 4:00 PM EST Refer to the Notes tab for result details [facility] Procedure: Mammography Report 1 Procedure Note Provider, MD Diogo - 01/29/2023 Refer to the Notes tab for result details [facility] Procedure: Mammography Report 1 Kyra Doyle MD IMG BI PROCEDURES Fin al Result * Hm Pap Smear (03/27/2020) Pap Negative for intraephithelial lesion or malignancy Negative for intraephithelial lesion or malignancy, Other HPV Undetected Undetected, Indeterminate, Quantitative, Not Detected us Historical Provider HEALTH MAINTENANCE Final Result from Last 3 Months or Most Recently Relevant to Health Maintenance Insurance [facility] STANDARD MEDICARE Care Teams Sueding Machine Operator Relationship Specialty Start Date End Date Elizabeth Dean NP [address] [place] [address] [phone] PCP - General Family Medicine 02/25/25
--- OUTSIDE RECORDS SUMMARY | 2025-03-03 19:08 | XMS_ITS | Encounter Summary ---
Author Organization [employer] Address [address] [facility] 7t [place] [address] Care Team Providers Care Water Treatment Plant Operator Name Role Phone Kyra Driscoll MD Primary Care Provide r Elizabeth Dean NP Primary Care Provider [phone] Reason for Visit * Reason Comments Med Refill Encounter Details Date Type Department Care Team ([facility] st Contact Info) Description 02/25/2023 Refill [facility] [address], [place] [phone] Porfirio Saldivar MD [address] [place], [place] [phone] Uncomplicated opioid dependence (CMS/HCC) Social History Tobacco [...] Description 03/04/2025 10:30 AM EDT Clinical Support [address] [address] Julia Lu RN 03/11/2025 9:30 AM EDT Office Visit [address] [address] Porfirio Saldivar MD [address] [place] [phone] documented as of this encounter Visit Diagnoses Diagnosis Uncomplicated opioid dependence (CMS/HCC) documented in this encounter Care Teams Water Treatment Plant Operator Relationship Specialty Start Date End Date Kyra Driscoll MD [address] [place] [address] PCP - General Family Medicine 06/03/19 03/03/24 Elizabeth Dean NP [address] [place] [address] 25129 PCP - General Family Medicine 02/25/25 documented as of this encounter
--- OUTSIDE RECORDS SUMMARY | 2025-03-03 19:08 | XMS_ITS | Encounter Summary ---
Author Organization [employer] Address [address] [facility] 7t [place] [address] Care Team Providers Care Double End Tenoner Operator Name Role Phone Kyra Driscoll MD Primary Care Provide r Elizabeth Dean NP Primary Care Provider [phone] Reason for Visit * Reason Comments Med Refill Encounter Details Date Type Department Care Team ([facility] Contact Info) Description 02/06/2023 Refill [facility] [address] [place] [address] Rachel Cash FNP [address] [place] [address] IFG (impaired fasting glucose); Uncomplicated opioid dependence [...] Upcoming Encounters Date Type Department Care Team ([facility] Contact Info) Description 03/04/2025 10:30 AM EDT Clinical Support [address] [address] Julia Lu RN 03/11/2025 9:30 AM EDT Office Visit [address] [address] Porfirio Saldivar MD [address] [place] [phone] documented as of this encounter Visit Diagnoses Diagnosis IFG (impaired fasting glucose) Uncomplicated opioid dependence (CMS/HCC) documented in this encounter Care Teams Double End Tenoner Operator Relationship Specialty Start Date End Date Kyra Driscoll MD [address] [place] [phone] PCP - General Family Medicine 06/03/19 03/03/24 Elizabeth Dean NP [address] [place] [address]79 PCP - General Family Medicine 02/25/25 documented as of this encounter
--- OUTSIDE RECORDS SUMMARY | 2025-03-03 19:08 | XMS_ITS | Encounter Summary ---
Author Organization [employer] [facility] Address [address] [place] [address] 7t h Floor [place] [phone] Care Team Providers Care Cottage Attendant Name Role Phone Kyra Driscoll MD Primary Care Provide r Elizabeth Dean NP Primary Care Provider [phone] Encounter Details Date Type Department Care Team (Late st Contact Info) Description 09/26/2022 Abstract [facility] [address] [place] [address] [phone] Kyra Driscoll MD [address] [place] [address] [phone] Social History Tobacco Use Types Packs/Day Years [...] Description 03/04/2025 10:30 AM EDT Clinical Support [facility] [address] [place] [address] [phone] Julia Lu RN 03/11/2025 9:30 AM EDT Office Visit [facility] [address] [place] [address] [phone] Porfirio Saldivar MD [address] [place] [address] [phone] documented as of this encounter Visit Diagnoses Not on filedocumented in this encounter Care Teams Cottage Attendant Relationship Specialty Start Date End Date Kyra Driscoll MD [address] [place] [address] PCP - General Family Medicine 06/03/19 03/03/24 Elizabeth Dean NP [address] [place] [address] PCP - General Family Medicine 02/25/25 documented as of this encounter
--- OUTSIDE RECORDS SUMMARY | 2025-03-03 19:08 | XMS_ITS | Encounter Summary ---
Author Organization [employer] [facility] Address [address] [facility] 7t [place] [address] Care Team Providers Care Ceramic Painter Name Role Phone Kyra Driscoll MD Primary Care Provide r Elizabeth Dean NP Primary Care Provider [phone] Reason for Visit * Reason Comments Med Refill Encounter Details Date Type Department Care Team (Late st Contact Info) Description 06/16/2023 Refill [facility] [address] [place] [address] [phone] Kyra Driscoll MD [address] [place], [place] [phone] Other muscle spasm Social History Tobacco Use [...] Description 03/04/2025 10:30 AM EDT Clinical Support [facility] [address] [place] [address] [phone] Julia Lu RN 03/11/2025 9:30 AM EDT Office Visit [facility] [address] [place] [address] Porfirio Saldivar MD [address] [place] [address] documented as of this encounter Visit Diagnoses Diagnosis Other muscle spasm documented in this encounter Care Teams Ceramic Painter Relationship Specialty Start Date End Date Kyra Driscoll MD [address] [place] [address] PCP - General Family Medicine 06/03/19 03/03/24 Elizabeth Dean NP [address] [place] [address] PCP - General Family Medicine 02/25/25 documented as of this encounter
--- OUTSIDE RECORDS SUMMARY | 2025-03-03 19:09 | XMS_ITS | Encounter Summary ---
Author Organization [employer] Address [address] [facility] 7t [place] [address] Care Team Providers Care Weed Cutter Name Role Phone Kyra Driscoll MD Primary Care Provide r Elizabeth Dean NP Primary Care Provider [phone] Reason for Visit * Reason Onset Date Comments Durable Medical Equipment 03/28/2023 Encounter Details Date Type Department Care Team (Late st Contact Info) Description 03/28/2023 Telephone [facility] [address] [place], [place] [phone] Kyra Driscoll MD 230 [place], [place] [phone] Durable Medical Equipment Social History Tobacco Use [...] generated for signature * Telephone Encounter - Kiera Tex - 03/28/2023 9:46 AM EDT Please review [...] Description 03/04/2025 10:30 AM EDT Clinical Support [facility] [address] [place] [phone] Julia Lu RN 03/11/2025 9:30 AM EDT Office Visit [facility] [address] [place] [phone] Porfirio Saldivar MD [address] [place] [phone] documented as of this encounter Visit Diagnoses Not on filedocumented in this encounter Care Teams Weed Cutter Relationship Specialty Start Date End Date Kyra Driscoll MD [address] [place] [address] PCP - General Family Medicine 06/03/19 03/03/24 Elizabeth Dean NP [address] [place] [address] PCP - General Family Medicine 02/25/25 documented as of this encounter
--- OUTSIDE RECORDS SUMMARY | 2025-03-03 19:09 | XMS_ITS | Encounter Summary ---
Author Organization [employer] Address [address] [facility] [address] [place] [address] Care Team Providers Care Human Resources Operations Coordinator Name Role Phone Elizabeth Dean NP Primary Care Provider [phone] Encounter Details Date Type Department Care Team ([facility] st Contact Info) Description 03/03/2025 2:30 PM EDT Office Visit [facility] [address] [place], [place] [phone] Elizabeth Dean NP [address] [place], [place] [phone] Systolic murmur (Primary Dx); Tachycardia Social History Tobacco Use Types Packs/Day Years [...] Mass Index 33.9 03/03/2025 2:41 PM EDT documented in this encounter Plan of Treatment Upcoming Encounters Date Type Department Care Team (Late st Contact Info) Description 03/04/2025 10:30 AM EDT Clinical Support [facility] [address] [place] [address] Julia Lu RN 03/11/2025 9:30 AM EDT Office Visit [facility] [address] [place] [address] Porfirio Saldivar MD [address] [place] [address] documented as of this encounter Procedures Procedure Name Priority Date/Time Associated Diagnosis Comments ECG 12-LEAD Routine 03/03/2025 2:57 PM EDT Tachycardia documented in this encounter Results * ECG 12 lead (03/03/2025 2:57 PM EDT) us Elizabeth Dean NP ECG ORDERABLES Final Result documented in this encounter Visit Diagnoses Diagnosis Systolic murmur- Primary Undiagnosed cardiac murmurs Tachycardia Unspecified tachycardia documented in this encounter Care Teams Human Resources Operations Coordinator Relationship Specialty Start Date End Date Elizabeth Dean NP [address] [place] [address] PCP - General Family Medicine 02/25/25 documented as of this encounter
--- OUTSIDE RECORDS SUMMARY | 2025-03-03 19:09 | XMS_ITS | Encounter Summary ---
Author Organization [employer] Address [address] [facility] 7t [place] [address] Care Team Providers Care Authorization Rep Name Role Phone Elizabeth Dean MARCO Primary Care Provider [phone] Encounter Details Date Type Department Care Team (Latest Contact Info) Description 03/03/2025 Travel Social History Tobacco Use Types Packs/Day [...] Description 03/04/2025 10:30 AM EDT Clinical Support [facility] [address] [place] [address] Julia Lu RN 03/11/2025 9:30 AM EDT Office Visit [facility] [address] [place] [address] 28826 Porfirio Saldivar MD [address] [place] [address] 19[address] documented as of this encounter Visit Diagnoses Not on filedocumented in this encounter Care Teams Authorization Rep Relationship Specialty Start Date End Date Elizabeth Dean NP [address] [place] [address]702 PCP - General Family Medicine 02/25/25 documented as of this encounter
--- OUTSIDE RECORDS SUMMARY | 2025-03-03 19:09 | XMS_ITS | Encounter Summary ---
Author Organization [employer] Address 75 [facility] 7t [place] [address] Care Team Providers Care Dehydrogenation Supervisor Name Role Phone Kyra Driscoll MD Primary Care Provide r Elizabeth Dean NP Primary Care Provider [phone] Reason for Visit * Reason Comments Med Refill Encounter Details Date Type Department Care Team ([facility] Contact Info) Description 06/07/2023 Refill [facility] [address] [place], [place] [phone] Kyra Driscoll MD 230 [place], [place] [phone] Chronic nausea; Allergy, subsequent encounter Social History [...] Upcoming Encounters Date Type Department Care Team ([facility] Contact Info) Description 03/04/2025 10:30 AM EDT Clinical Support [facility] [address] [place] [address] [phone] Julia Lu RN 03/11/2025 9:30 AM EDT Office Visit [facility] 230 [place] [address] Porfirio Saldivar MD 230 [place], [place] [phone] documented as of this encounter Visit Diagnoses Diagnosis Chronic nausea Nausea alone Allergy, subsequent encounter documented in this encounter Care Teams Dehydrogenation Supervisor Relationship Specialty Start Date End Date Kyra Driscoll MD [address] [place] [address] [phone] PCP - General Family Medicine 06/03/19 03/03/24 Elizabeth Dean NP 230 [place], [place] [phone] PCP - General Family Medicine 02/25/25 documented as of this encounter
--- OUTSIDE RECORDS SUMMARY | 2025-03-03 19:09 | XMS_ITS | Encounter Summary ---
Author Organization [employer] Address 75 [facility] 7t [place] [address] Care Team Providers Care Capacitor Assembler Name Role Phone Kyra Driscoll MD Primary Care Provide r Elizabeth Dean NP Primary Care Provider [phone] Reason for Visit * Reason Comments Med Refill Encounter Details Date Type Department Care Team (Late Contact Info) Description 04/17/2023 Refill [facility]S 505 [place], [place] [phone] [facility] 230 [place] [address] Iron deficiency Social History Tobacco Use Types [...] Department Care Team (Late Contact Info) Description 03/04/2025 10:30 AM EDT Clinical Support [address] [address] Julia Lu RN 03/11/2025 9:30 AM EDT Office Visit [address] [address] Porfirio Saldivar MD 230 [place] [address] documented as of this encounter Visit Diagnoses Diagnosis Iron deficiency Disorders of iron metabolism documented in this encounter Care Teams Capacitor Assembler Relationship Specialty Start Date End Date Kyra Driscoll MD [address] [place] [address] 27659 PCP - General Family Medicine 06/03/19 03/03/24 Elizabeth Dean NP [address] [place] [address] 11897 PCP - General Family Medicine 02/25/25 documented as of this encounter
--- OUTSIDE RECORDS SUMMARY | 2025-03-03 19:09 | XMS_ITS | Encounter Summary ---
Author Organization [employer] Address 75 [facility] 7t [place] [address] Care Team Providers Care Lead Burner Apprentice Name Role Phone JovannaElizabeth ham MARCO Primary Care Provider [phone] Reason for Visit * Reason Onset Date Comments Chart Prep 02/28/2025 Encounter Details Date Type Department Care Team ([facility] st Contact Info) Description 02/28/2025 Telephone [facility] 230 [place], [place] [phone] Kenzie Loera MA Chart Prep Social History Tobacco Use Types Packs/Day Years [...] encounter Miscellaneous Notes * Telephone Encounter - Kenzie Loera MA - 02/28/2025 3:47 PM EDT Chart Prep Labs: done Images: done Referrals: complete Vaccines due: Covid, Tdap, Pcv20, Flu, Shingles Screenings: colonoscopy, mammogram, and Cervical cancer Overdue care gaps: Disability screen and Tobacco documented in this encounter Plan of Treatment Upcoming Encounters Date Type Department Care Team (Late st Contact Info) Description 03/04/2025 10:30 AM EDT Clinical Support [facility] [address] [place] [phone] Julia Lu RN 03/11/2025 9:30 AM EDT Office Visit [facility] [address] [place] [address] Porfirio Saldivar MD [address] [place] [address] documented as of this encounter Visit Diagnoses Not on filedocumented in this encounter Care Teams Lead Burner Apprentice Relationship Specialty Start Date End Date Elizabeth Dean NP [address] [place] [address] PCP - General Family Medicine 02/25/25 documented as of this encounter
--- OUTSIDE RECORDS SUMMARY | 2025-03-03 19:09 | XMS_ITS | Encounter Summary ---
Author Organization [employer] Address 75 [facility] 7t [place] [address] Care Team Providers Care Worsted Winder Name Role Phone Elizabeth Dean MARCO Primary Care Provider [phone] Encounter Details Date Type Department Care Team ([facility] st Contact Info) Description 02/25/2025 Orders Only [facility] 230 [place], [place] [phone] Porfirio Saldivar MD 230 [place], [place] [phone] Social History Tobacco Use Types Packs/Day Years [...] Description 03/04/2025 10:30 AM EDT Clinical Support [facility] 230 [place], [place] [phone] Julia Lu RN 03/11/2025 9:30 AM EDT Office Visit [facility] 230 [place], [place] [phone] Porfirio Saldivar MD 230 [place], [place] [phone] documented as of this encounter Procedures Procedure Name Priority Date/Time Associated Diagnosis Comments GLUCOSE, WHOLE BLOOD Routine 03/03/2025 5:48 PM EDT XR CHEST 1 VIEW Routine 03/03/2025 5:20 PM EDT OTHER REF TEST - [facility] Routine 02/25/2025 11:54 AM EDT documented in this encounter Results * Glucose, Whole Blood (03/03/2025 5:48 PM EDT) Glucose, Whole Blood 91 60 - 115 mg/dL [facility] Comment:METER #: [id number] 03/03/2025 5:48 PM EDT 03/03/2025 5:51 PM EDT us Generic External Data Provider LAB BLOOD ORDERAB LES Final Result [facility] [address] [place] [phone] * XR Chest 1 View (03/03/2025 5:20 PM EDT) Anatomical Region Laterality Modality Chest Radiographic Jenna ging 03/03/2025 5:20 PM EDT Narrative 03/03/2025 5:21 PM EDT ? [facility] ?[address] ?Cassandra Thakkar [address] ?XRay Report ? Signed ? Patient: Ortiz,Christie N ?MR#: [id number] ?? 31 ? : 1975 ?Acct:[id number] ? Age/Sex: 49 / F ?ADM Date: 03/03/25 ? Loc: HO.ED ? Attending Dr: ? Ordering Physician: Samantha Pike MD ?? Date of Service: 03/03/25 ?? Procedure(s): XR chest 1V ?? Accession Number(s): [id number] ? cc: Elizabeth Dean NP; Samantha Pike MD ? CLINICAL HISTORY: CP [...] DD/ 1720 ? TD/TT: 03/03/25 1720 ? Patient Navigator: ? Procedure Note Raeann, Jose - 03/03/[address] [address] XRay Report Signed Patient: Christie Ortiz [facility]#: [id number] [birth year] : 1975Acct:[id number] Age/Sex: 49 / FADM Date: 03/03/25 Loc: HO.ED Attending Dr: Ordering Physician: Samantha Pike MD Date of Service: 03/03/25 Procedure(s): XR chest 1V Accession Number(s): [id number] cc: Elizabeth Dean MUSIC SPECIALIST; Samantha Pike MD CLINICAL HISTORY: CP [...] by Kelli Fowler MD in OV> 03/03/25 172 DD/ 19 TD/TT: 03/03/251719 Patient Navigator: [facility] External Provider IMG XR PROCEDURES Final Result * Other Reference Test - Misc (02/25/2025 11:54 AM EDT) 02/25/2025 11:5 4 AM EDT 02/25/2025 1:56 PM EDT Narrative [facility] - 02/27/2025 10:45 AM EDT [phone] Porfirio Saldivar MD LAB BLOOD ORDERABLES Final Res ult [facility] [address] [place] [address] [phone] documented in this encounter Visit Diagnoses Not on filedocumented in this encounter Care Teams Worsted Winder Relationship Specialty Start Date End Date Elizabeth Dean NP [address] [place] [address] PCP - General Family Medicine 02/25/25 documented as of this encounter
--- OUTSIDE RECORDS SUMMARY | 2025-03-03 19:09 | XMS_ITS | Encounter Summary ---
Author Organization [employer] Address 75 [facility] 7t [place] [address] Care Team Providers Care Cell Maker Name Role Phone Kyra Driscoll MD Primary Care Provide r Elizabeth Dean NP Primary Care Provider [phone] Reason for Visit * Reason Comments Med Refill Encounter Details Date Type Department Care Team (Late Contact Info) Description 03/10/[address] [facility] 230 [place], [place] [phone] Nurys Mcdonnell MD 230 [place], [place] [phone] Allergy, subsequent encounter Social History Tobacco Use [...] Description 03/04/2025 10:30 AM EDT Clinical Support [address] [address] Julia Lu RN 03/11/2025 9:30 AM EDT Office Visit [address] [address] Porfirio Saldivar MD [address] [place] [address] documented as of this encounter Visit Diagnoses Diagnosis Allergy, subsequent encounter documented in this encounter Care Teams Cell Maker Relationship Specialty Start Date End Date Kyra Driscoll MD [address] [place] [address] PCP - General Family Medicine 06/03/19 03/03/24 Elizabeth Dean NP [address] [place] [address] PCP - General Family Medicine 02/25/25 documented as of this encounter
--- OUTSIDE RECORDS SUMMARY | 2025-03-03 19:09 | XMS_ITS | Encounter Summary ---
Author Organization [employer] Address 75 [facility] 7t [place] [address] Care Team Providers Care Floor Layer Apprentice Name Role Phone Kyra Driscoll MD Primary Care Provide r Elizabeth Dean NP Primary Care Provider [phone] Reason for Visit * Reason Comments Med Refill Encounter Details Date Type Department Care Team ([facility] Contact Info) Description 05/23/2023 Refill [facility] & PEDS [address] [place], [place] [phone] Kyra Driscoll MD 230 [place], [place] [phone] Social History Tobacco Use Types Packs/Day Years [...] 10:30 AM EDT Clinical Support [facility] [address] [place] [address] [phone] Julia Lu RN 03/11/2025 9:30 AM EDT Office Visit [facility] [address] [place] [address] Porfirio Saldivra MD 230 [place] [address] documented as of this encounter Visit Diagnoses Not on filedocumented in this encounter Care Teams Floor Layer Apprentice Relationship Specialty Start Date End Date Kyra Driscoll MD 230 [place] [address] PCP - General Family Medicine 06/03/19 03/03/24 Elizabeth Dean NP 230 [place] [address] PCP - General Family Medicine 02/25/25 documented as of this encounter
--- OUTSIDE RECORDS SUMMARY | 2025-03-03 19:09 | XMS_ITS | Encounter Summary ---
Author Organization [employer] Address 75 [facility] 7t [place] [address] Care Team Providers Care Manager Nuclear Name Role Phone Kyra Driscoll MD Primary Care Provide r Elizabeth Dean NP Primary Care Provider [phone] Reason for Visit * Reason Comments Med Refill Encounter Details Date Type Department Care Team ([facility] Contact Info) Description 04/22/2023 Refill [facility] 230 [place], [place] [phone] Kyra Driscoll MD 230 [place], [place] [phone] Moderate persistent asthma without complication Social History [...] Encounters Date Type Department Care Team ([facility] Contact Info) Description 03/04/2025 10:30 AM EDT Clinical Support [address] [address] Julia Lu RN 03/11/2025 9:30 AM EDT Office Visit [address] [address] Porfirio Saldivar MD 230 [place] [address] documented as of this encounter Visit Diagnoses Diagnosis Moderate persistent asthma without complication documented in this encounter Care Teams Manager Nuclear Relationship Specialty Start Date End Date Kyra Driscoll MD [address] [place] [address] PCP - General Family Medicine 06/03/19 03/03/24 Elizabeth Dean NP [address] [place] [address] PCP - General Family Medicine 02/25/25 documented as of this encounter
--- OUTSIDE RECORDS SUMMARY | 2025-03-03 19:09 | XMS_ITS | Encounter Summary ---
Author Organization [employer] Address 75 [facility] 7t [place] [address] Care Team Providers Care Partner Marketing Manager Name Role Phone Kyra Driscoll MD Primary Care Provide r Elizabeth Dean NP Primary Care Provider [phone] Reason for Visit * Reason Comments Med Refill Encounter Details Date Type Department Care Team ([facility] Contact Info) Description 04/24/2023 Refill [facility] 230 [place], [place] [phone] Kyra Driscoll MD 230 [place], [place] [phone] Allergy, subsequent encounter Social History Tobacco Use [...] Upcoming Encounters Date Type Department Care Team ([facility] Contact Info) Description 03/04/2025 10:30 AM EDT Clinical Support [address] [address] Jluia Lu RN 03/11/2025 9:30 AM EDT Office Visit [address] [address] Porfirio Saldivar MD 230 [place] [address] documented as of this encounter Visit Diagnoses Diagnosis Allergy, subsequent encounter documented in this encounter Care Teams Partner Marketing Manager Relationship Specialty Start Date End Date Kyra Driscoll MD [address] [place] [address] [phone] PCP - General Family Medicine 06/03/19 03/03/24 Elizabeth Dean NP [address] [place] [address] [phone] PCP - General Family Medicine 02/25/25 documented as of this encounter
--- OUTSIDE RECORDS SUMMARY | 2025-03-03 19:09 | XMS_ITS | Encounter Summary ---
Author Organization [employer] Address [address] [facility] 7t [place] [address] Care Team Providers Care Log Getter Name Role Phone Kyra Driscoll MD Primary Care Provide r Elizabeth Dean NP Primary Care Provider [phone] Reason for Visit * Reason Comments Med Refill Encounter Details Date Type Department Care Team ([facility] Contact Info) Description 06/07/2023 Refill [facility] [address] [place] [address] [phone] Rachel Cash FNP 505 [place], [place] [phone] Allergy, subsequent encounter Social History Tobacco Use [...] 03/04/2025 10:30 AM EDT Clinical Support [facility] [address] [place] [address] [phone] Julia Lu RN 03/11/2025 9:30 AM EDT Office Visit [facility] [address] [place] [address] Porfirio Saldivar MD 230 [place] [address] documented as of this encounter Visit Diagnoses Diagnosis Allergy, subsequent encounter documented in this encounter Care Teams Log Getter Relationship Specialty Start Date End Date Kyra Driscoll MD 230 [place] [address] PCP - General Family Medicine 06/03/19 03/03/24 Elizabeth Dean NP 230 [place], [place] [phone] PCP - General Family Medicine 02/25/25 documented as of this encounter
--- OUTSIDE RECORDS SUMMARY | 2025-03-03 19:09 | XMS_ITS | Encounter Summary ---
Author Organization [employer] Address 75 [facility] 7t [place] [address] Care Team Providers Care Shot Polisher And Inspector Name Role Phone Kyra Driscoll MD Primary Care Provide r Elizabeth Dean NP Primary Care Provider [phone] Reason for Visit * Reason Comments Med Refill Encounter Details Date Type Department Care Team (Late st Contact Info) Description 06/13/2023 Refill [facility] [address] [place] [address] [phone] Porfirio Saldivar MD 230 [place], [place] [phone] Uncomplicated opioid dependence (CMS/HCC) Social History Tobacco [...] Description 03/04/2025 10:30 AM EDT Clinical Support [facility] [address] [place] [address] [phone] Julia Lu RN 03/11/2025 9:30 AM EDT Office Visit [facility] [address] [place] [address] Porfirio Saldivar MD 230 [place], [place] [phone] documented as of this encounter Visit Diagnoses Diagnosis Uncomplicated opioid dependence (CMS/HCC) documented in this encounter Care Teams Shot Polisher And Inspector Relationship Specialty Start Date End Date Kyra Driscoll MD 230 [place], [place] [phone] PCP - General Family Medicine 06/03/19 03/03/24 Elizabeth Dean NP 230 [place], [place] [phone] PCP - General Family Medicine 02/25/25 documented as of this encounter
--- OUTSIDE RECORDS SUMMARY | 2025-03-03 19:09 | XMS_ITS | Encounter Summary ---
Author Organization [employer] Address 75 [facility] 7t [place] [address] Care Team Providers Care Improvement Manager Name Role Phone Kyra Driscoll MD Primary Care Provide r Elizabeth Dean NP Primary Care Provider [phone] Reason for Visit * Reason Comments Med Refill Encounter Details Date Type Department Care Team (Late st Contact Info) Description 05/23/2023 Refill [facility] [address] [place] [address] [phone] Nurys Mcdonnell MD [address] [place] [address] [phone] COPD (chronic obstructive pulmonary disease) with chronic bronchitis ([facility]/HCC) Social History Tobacco Use Types Packs/Day Years [...] Clinical Support [facility] [address] [place] [address] [phone] Julia Lu RN 03/11/2025 9:30 AM EDT Office Visit [facility] 230 [place] [address] Porfirio Saldivar MD 230 [place], [place] [phone] documented as of this encounter Visit Diagnoses Diagnosis COPD (chronic obstructive pulmonary disease) with chronic bronchitis ([facility]) documented in this encounter Care Teams Improvement Manager Relationship Specialty Start Date End Date Kyra Driscoll MD [address] [place] [address] PCP - General Family Medicine 06/03/19 03/03/24 Elizabeth Dean NP 230 [place] [address] PCP - General Family Medicine 02/25/25 documented as of this encounter
--- OUTSIDE RECORDS SUMMARY | 2025-03-03 19:09 | XMS_ITS | Encounter Summary ---
Author Organization [employer] Address 75 [facility] 7t [place] [address] Care Team Providers Care Physical Therapy Aides Teacher Name Role Phone Kyra Driscoll MD Primary Care Provide r Elizabeth Dean NP Primary Care Provider [phone] Reason for Visit * Reason Comments Med Refill Encounter Details Date Type Department Care Team (Late Contact Info) Description 03/15/2023 Refill [facility] MED & PEDS [address] [place], [place] [phone] Nurys Mcdonnell MD 230 [place] [address] Other migraine without status migrainosus, not intractable [...] Upcoming Encounters Date Type Department Care Team ([facility] Contact Info) Description 03/04/2025 10:30 AM EDT Clinical Support [address] [address] Julia Lu RN 03/11/2025 9:30 AM EDT Office Visit [address] [address] Porfirio Saldivar MD [address] [place] [address] documented as of this encounter Visit Diagnoses Diagnosis Other migraine without status migrainosus, not intractable documented in this encounter Care Teams Physical Therapy Aides Teacher Relationship Specialty Start Date End Date Kyra Driscoll MD [address] [place] [address] [phone] PCP - General Family Medicine 06/03/19 03/03/24 Elizabeth Dean NP [address] [place] [address] PCP - General Family Medicine 02/25/25 documented as of this encounter
== END 2025-03-03 18:59 | disposition home or self-care (01) ==
PROVIDERS: Emergency Provider Emergency Medicine; PCP Nurse Practitioner Family
DX: R09.1 Pleurisy (principal); R06.02 Shortness of breath; R07.89 Other chest pain; Z79.899 Other long term (current) drug therapy
CPT/HCPCS: 36415; 71045; 80048; 80076; 82947; 83880; 84484; 85025; 85379; 93005; 99283

== ENCOUNTER → 2025-03-03 17:02 | Outpatient (BNV) | payer OTHER, SELFPAY | PROVIDERS: Emergency Provider Emergency Medicine; PCP Nurse Practitioner Family; Visit Provider Radiology Diagnostic Radiology | DX: R07.9 Chest pain, unspecified (principal); J45.909 Unspecified asthma, uncomplicated | CPT/HCPCS: 71045 ==

== ENCOUNTER → 2025-03-03 17:02 | Outpatient (BNV) | payer OTHER, SELFPAY | PROVIDERS: Emergency Provider Emergency Medicine; PCP Nurse Practitioner Family; Visit Provider Internal Medicine Cardiovascular Disease | DX: I45.10 Unspecified right bundle-branch block (principal) | CPT/HCPCS: 93010 ==

== ENCOUNTER 2025-03-04 10:13 | Outpatient (REF) | payer OTHER, SELFPAY ==
[2025-03-04 11:26] LABS: MANUAL DIFF FLAG NO
--- OUTSIDE RECORDS SUMMARY | 2025-03-04 11:40 | XMS_ITS | Encounter Summary ---
Author Organization [employer] Address 75 [facility] 7t [place] [address] Care Team Providers Care Associate Producer Name Role Phone Kyra Driscoll MD Primary Care Provide r Elizabeth Dean NP Primary Care Provider [phone] Reason for Visit * Reason Comments Med Refill Encounter Details Date Type Department Care Team ([facility] Contact Info) Description 02/06/2023 Refill [facility]INE 230 [place] [address] Rachel Cash FNP 505 [place] [address] IFG (impaired fasting glucose); Uncomplicated opioid dependence [...] Upcoming Encounters Date Type Department Care Team ([facility] Contact Info) Description 03/11/2025 9:30 AM EDT Office Visit [facility] [address] [place] [address] Porfirio Saldivar MD 230 [place] [address] 03/11/2025 11:30 AM EDT Telemedicine [address] [phone] Elizabeth Dean NP 230 [place], [place] [phone] documented as of this encounter Visit Diagnoses Diagnosis IFG (impaired fasting glucose) Uncomplicated opioid dependence (CMS/HCC) documented in this encounter Care Teams Associate Producer Relationship Specialty Start Date End Date Kyra Driscoll MD [address] [place] [address] [phone] PCP - General Family Medicine 06/03/19 03/03/24 Elizabeth Dean NP [address] [place] [address] [phone] PCP - General Family Medicine 02/25/25 documented as of this encounter
--- OUTSIDE RECORDS SUMMARY | 2025-03-04 11:40 | XMS_ITS | Encounter Summary ---
Author Organization [employer] [facility] Address [address] [place] [address] 7t [place] [address] Care Team Providers Care Earth Science Teacher Name Role Phone Kyra Driscoll MD Primary Care Provide r Elizabeth Dean NP Primary Care Provider [phone] Reason for Visit * Reason Comments Med Refill Encounter Details Date Type Department Care Team (Late st Contact Info) Description 06/16/2023 Refill [facility] 230 [place], [place] [phone] Kyra Driscoll MD 230 [place], [place] [phone] Other muscle spasm Social History Tobacco Use [...] Care Team (Late st Contact Info) Description 03/11/2025 9:30 AM EDT Office Visit [facility]INE 230 [place], [place] [phone] Porfirio Saldivar MD 230 [place], [place] [phone] 03/11/2025 11:30 AM EDT Telemedicine [facility]INE 230 [place], [place] [phone] Elizabeth Dean NP 230 [place], [place] [phone] documented as of this encounter Visit Diagnoses Diagnosis Other muscle spasm documented in this encounter Care Teams Earth Science Teacher Relationship Specialty Start Date End Date Kyra Driscoll MD [address] [place] [address] [phone] PCP - General Family Medicine 06/03/19 03/03/24 Elizabeth Dean NP [address] [place] [address] [phone] PCP - General Family Medicine 02/25/25 documented as of this encounter
--- OUTSIDE RECORDS SUMMARY | 2025-03-04 11:40 | XMS_ITS | Encounter Summary ---
Author Organization [employer] Address [address] [place] [address] 7t [place] [address] Care Team Providers Care Casino Banker Name Role Phone Kyra Driscoll MD Primary Care Provide r Elizabeth Dean NP Primary Care Provider [phone] Encounter Details Date Type Department Care Team (Late st Contact Info) Description 09/26/2022 Abstract [facility] [address] [place] [address] [phone] Kyra Driscoll MD [address] [place] [address] [phone] Social History Tobacco Use Types Packs/Day Years [...] Description 03/11/2025 9:30 AM EDT Office Visit [facility] [address] [place] [address] [phone] Porfirio Saldivar MD [address] [place] [address] [phone] 03/11/2025 11:30 AM EDT Telemedicine [facility] [address] [place] [phone] Elizabeth Dean NP [address] [place], [place] [phone] documented as of this encounter Visit Diagnoses Not on filedocumented in this encounter Care Teams Casino Banker Relationship Specialty Start Date End Date Kyra Driscoll MD 230 [place] [address] PCP - General Family Medicine 06/03/19 03/03/24 Elizabeth Dean NP [address] [place] [address] PCP - General Family Medicine 02/25/25 documented as of this encounter
--- OUTSIDE RECORDS SUMMARY | 2025-03-04 11:40 | XMS_ITS | Encounter Summary ---
Author Organization [employer] Address [address] [facility] 7t [place] [address] Care Team Providers Care Supervisor Backfilling Name Role Phone Kyra Driscoll MD Primary Care Provide r Elizabeth Dean NP Primary Care Provider [phone] Reason for Visit * Reason Comments Med Refill Encounter Details Date Type Department Care Team ([facility] st Contact Info) Description 02/25/2023 Refill [facility] 230 [place], [place] [phone] Porfirio Saldivar MD 230 [place], [place] [phone] Uncomplicated opioid dependence (CMS/HCC) Social History Tobacco [...] Description 03/11/2025 9:30 AM EDT Office Visit [facility] [address] [place] [phone] Porfirio Saldivar MD [address] [place] [address] 03/11/2025 11:30 AM EDT Telemedicine [address] [address] Elizabeth Dean NP [address] [place] [phone] documented as of this encounter Visit Diagnoses Diagnosis Uncomplicated opioid dependence (CMS/[facility]) documented in this encounter Care Teams Supervisor Backfilling Relationship Specialty Start Date End Date Kyra Driscoll MD [address] [place] [phone] PCP - General Family Medicine 06/03/19 03/03/24 Elizabeth Dean NP [address] [place] [phone] PCP - General Family Medicine 02/25/25 documented as of this encounter
--- OUTSIDE RECORDS SUMMARY | 2025-03-04 11:40 | XMS_ITS | Clinical Summary ---
Author Organization [facility] Address [address] [place] [address] Care Team Providers Care Corporate Affairs Manager Name Role Phone Kyra Driscoll MD Primary Care Provide r Surgical History Surgery Date Site/Laterality Comments TUBAL LIGATION 2006 Bilateral PROCEDURE: HISTORICAL TUBAL LIGATION OTHER SURGICAL HISTORY 2006 PROCEDURE: [place] HYSTEROSCOPY ENDOMETRIAL ABLATION GASTRIC BYPASS 2003 PROCEDURE: GASTRIC BYPASS FOR OBESIT; COMMENT: revision 2019 BREAST REDUCTION 2002 PROCEDURE: [place] BREAST REDUCTION OTHER SURGICAL HISTORY 2009 PROCEDURE: ---- HEMORRHOIDS ---- CARPAL TUNNEL RELEASE 2010 PROCEDURE: [place] NEUROPLASTY &/TRANSPOS MEDIAN NRV CARPAL TUNNE KNEE ARTHROPLASTY Right PROCEDURE: [place] ARTHRS KNEE ABRASION ARTHRP/AERIAL PLANTING AND CULTIVATION MANAGER DRLG/MICROFX BACK SURGERY PROCEDURE: HISTORICAL BACK SURGERY; COMMENT: lower back ? 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 ([facility] V24, [facility] V28) DX:Opioid depend w opioid-in maxime psychotic disorder w delusions ([facility]) Back pain DX:Back pain Cramps of lower extremity DX:Mixer Whipped Topping mps of lower extremity Gastric bypass status for obesity DX:Gastric bypass status for obesity Knee pain DX:Knee pain Back pain DX:Back pain Systolic murmur DX:Systolic murm ur Seizure disorder ([facility] V2 4, [facility] V28) DX:Seizure disorder ([facility]) Bilateral hearing loss DX:Bilate ral hearing loss Bronchitis DX:Bronchitis Migraine DX:Migraine Scalp psoriasis DX:Scalp psorias is Bipolar 1 disorder (CMS/[facility] V24, [facility]/HCC V28) DX:Bipolar 1 disorder (HCC) Family History [...] RESULTING AGENCY - 03/27/2020 12:15 PM EDT [id number] THINPREP PAP, IMAGED: NEGATIVE FOR SQUAMOUS INTRAEPITHELIAL [...] Recently Relevant to Health Maintenance Care Teams Corporate Affairs Manager Relationship Specialty Start Date End Date Kyra Driscoll MD [address] [phone] PCP - General Internal Medicine 08/13/21
--- OUTSIDE RECORDS SUMMARY | 2025-03-04 11:41 | XMS_ITS | Clinical Summary ---
Author Organization [employer] Address [address] [facility] 7t [place] [address] Care Team Providers Care Organic Extractions Technician Name Role Phone Elizabeth Dean MARCO Primary Care Provider [phone] Allergies Active Allergy Reactions Criticality Noted Date [...] tablet in the evening. 021 Active Blood Pressure Monitoring (Omron 3 Series [...] AT BEDTIME 023 Active Continuous Blood Gluc College Coach (FreeStyle Cindy 2 [place]) device USE DIRECTED Active Continuous Blood Gluc Sensor (FreeStyle Cindy 2 Sensor) misc USE DIRECTED. CHANGE EVERY 14 DAYS Active [...] Take 240 mg by mouth. Active fluocinolone ([place]eriet-Smoothe) 0.01 % external oil apply by topical [...] capsule by mouth every 12 (twelve) hours. Active OXcarbazepine (Trileptal) 600 MG tablet TAKE 1 TABLET BY MOUTH TWICE DAILY IN THE MORNING AND IN THE EVENING Active pancrelipase, Xkb-Udak-Piyc, (Creon) 6991-0432 units capsule Take 1 capsule by mouth. 018 Active thiamine (Vitamin B-1) 50 MG tablet Take 50 mg by mouth at bedtime. 022 Active traZODone (Desyrel) 50 MG tablet take 2 tablet by oral route every day at bedtime as needed Active zolpidem (Ambien) 10 MG tablet Take 10 mg by mouth if needed at bedtime. 022 Active cholecalciferol (D3-5) 5,000 Units tablet Take [...] SUGAR TWICE DAILY 100 each 023 Active TRUEplus Lancets 33G miscIndications: IFG [...] THAN 8 TABLETS DAILY 10 tablet 1 023 Active diphenhydrAMINE (Colleen-Dryl) 25 MG tabletIndication s:Allergy, subsequent encounter TAKE 2 TABLETS BY MOUTH EVERY 4 TO 6 HOURS NEEDED 60 tablet 023 Active butalbital-aceta minophen-caffein e 50-325-40 MG tablet TAKE 1 TO 2 TABLETS BY MOUTH IF NEEDED FOR SEVERE HEADACHE, NOT TO EXCEED 2 TABLETS PER DAY 20 tablet 023 Active docusate sodium (Colace) 100 MG capsule [...] or shortness of breath. 18 g 3 025 Active Spacer/Aero-Hold ing Chambers (OptiChamber Sophia) misc [...] 7 days. 21 Film 025 2024 Active Blood Glucose Monitoring Suppl (ONE TOUCH ULTRA 2) w/Device kit Acti ve glucose blood (OneTouch Ultra Test) test strip 1 each by Other route. Active Lancets (OneTouch Delica) lancets 30G 1 each by Other route. Active Blood Glucose Monitoring Suppl (FreeStyle [place] Lite) w/Device kit USE DIRECTED 023 2024 Discontinued(F ormulary change) predniSONE (Deltasone) 20 MG tablet TAKE 1 [...] for 7 days. 21 Film 025 2024 Discontinued(D uplicate order (will not trigger notification to Pharmacy)) Active [...] & Plan (02/25/2025 1:16 PM EDT): Resume nupur, Rx sent Anxiety 12/02/2022 Arthritis 12/02/2022 Chest [...] has an open endo referral. I called [facility] endo. They said they recently lost 4 or 5 providers so they are booked out until October. They happened to have an open appointment MondayMarch 06 at 1545. [address] [facility], [address], [place]. I called patient and informed her of [...] organization. Date Type Department Care Team Description 03/04/2025 9:45 AM EDT Office Visit [facility] [address] [place] [address] Porfirio Saldivar MD Uncomplicated opioid dependence (CMS/HCC) (Primary Dx) 03/04/2025 Refill [facility] [address] [place] [address] Julia Lu RN Uncomplicated opioid dependence (CMS/HCC) 03/04/2025 Refill [facility] [address] [place] [address] Julia Lu RN Uncomplicated opioid dependence ([facility]/HCC) 03/04/2025 Travel 03/04/2025 Refill [facility] [address] [place] [address] Elizabeth Dean, INDUSTRIAL CLEANING TECHNICIAN Other muscle spasm (Primary Dx); Hypoglycemia 03/03/2025 2:30 PM EDT Office Visit [facility] [address] [place] [phone] Elizabeth Dean, MARCO Systolic murmur (Primary Dx); Tachycardia 03/03/2025 Travel 02/28/2025 Telephone [facility] [address] [place] [phone] Kenzie Loera MA Chart Prep 02/25/2025 1:00 PM EDT Office Visit [facility] [address] [place] [phone] Elizabeth Dean, MARCO Mild intermittent asthma, unspecified whether complicated (Primary Dx); Viral upper respiratory tract infection; Allergy, initial encounter 02/25/2025 10:15 AM EDT Office Visit [facility] [address] [place] [phone] Porfirio Saldivar MD Uncomplicated opioid dependence ([facility]) (Primary Dx) 02/25/2025 Orders Only [facility] [address] [place] [phone] Porfirio Saldivar MD 02/25/2025 Refill [facility] [address] [place] [address] Julia Lu RN Uncomplicated opioid dependence ([facility]/HCC) 02/25/2025 Travel 02/19/2025 Telephone [facility] [address] [place] [phone] Torres Morillo MD 02/18/2025 1:00 PM EDT Office Visit [facility] [address] [place] [phone] Torres Morillo MD Opioid type dependence, continuous ([facility]/HCC) (Primary Dx) 02/18/2025 Refill [facility] [address] [place] [address] Julia Lu RN Uncomplicated opioid dependence ([facility]/HCC) 02/18/2025 Travel 02/10/2025 11:30 AM EDT Office Visit [facility] [address] [place] [address] Julia Lu RN Uncomplicated opioid dependence (CMS/HCC) 02/10/2025 Refill [facility] [address] [place] [address] Julia Lu RN Uncomplicated opioid dependence ([facility]) (Primary Dx) 02/10/2025 Travel 02/05/2025 Telephone [facility] [address] [place] [phone] Daniele Mcfarlane MD New Patient appt. 02/04/2025 Telephone [facility] [address] [place] [address] [phone] Nurys Mcdonnell MD New patient appt from [...] Description 03/11/2025 9:30 AM EDT Office Visit [facility] [address] [place] [address] Porfirio Saldivar MD 230 [place], [place] [phone] 03/11/2025 11:30 AM EDT Telemedicine [facility] [address] [place], [place] [phone] Elizabeth Dean NP [address] [place], [place] [phone] Health Maintenance Due Date Last Done Comments [...] or Tdap) 09/20/2023 09/20/2013, 06/26/2007 COVID-19 Vaccine (3 - season) 2024 11/08/2022, 02/01/2021 Influenza Vaccine [...] Comments POCT PERLA-14 URINE DRUG SCREEN Routine 03/04/2025 9:51 AM EDT Uncomplicated opioid dependence (CMS/HCC) GLUCOSE, WHOLE BLOOD Routine 03/03/2025 5:48 PM [...] Relevant to Health Maintenance Results * POCT PERAL-14 Urine Drug Screen (03/04/2025 9:51 AM EDT) Only the most recent of3 resultswithin the time period is included. THC [...] obtained by clean catch procedure / Unknown 03/04/2025 9:51 AM EDT Porfirio Saldivar MD POINT OF CARE TEST ENTER/EDIT ORDERABLES Final Result * Glucose, Whole Blood (03/03/2025 5:48 PM EDT) Glucose, Whole Blood 91 60 - 115 mg/dL [facility] Comment:METER #: [id number] 03/03/2025 5:48 PM EDT 03/03/2025 5:51 PM EDT us Generic External Data Provider LAB BLOOD ORDERAB LES Final Result [facility] [address] [place] [phone] * XR Chest 1 View (03/03/2025 5:20 PM EDT) Anatomical Region Laterality Modality Chest Radiographic Jenna ging 03/03/2025 5:20 PM EDT Narrative 03/03/2025 5:21 PM EDT ? [facility] ?[address] ?[place] [address] ?XRay Report ? Signed ? Patient: Ortiz,Christie N ?MR#: [id number] ?? 31 ? : 1975 ?Acct:[id number] ? Age/Sex: 49 / F ?ADM Date: 03/03/25 ? Loc: HO.ED ? Attending Dr: ? Ordering Physician: aSmantha Pike MD ?? Date of Service: 03/03/25 ?? Procedure(s): XR chest 1V ?? Accession Number(s): [id number] ? cc: Elizabeth Dean NP; Samantha Pike [...] DD/ 1720 ? TD/TT: 03/03/25 1720 ? Pharmacy Billing Adjudicator: ? Procedure Note Raeann, Image - 03/03/2025 [place] [address] XRay Report Signed Patient: Christie Ortiz NMR#: [id number] 31 : 1975Acct:[id number] Age/Sex: 49 / FADM Date: 03/03/25 Loc: HO.ED Attending Dr: Ordering Physician: Samantha Pike MD Date of Service: 03/03/25 Procedure(s): XR chest 1V Accession Number(s): [id number] cc: Elizabeth Dean INDUSTRIAL CLEANING TECHNICIAN; Samantha Pike MD CLINICAL HISTORY: CP , [...] Fowler MD in OV> 03/03/25 172 DD/ 172 TD/TT: 03/03/25 172 Pharmacy Billing Adjudicator: [employer] External Provider IMG XR PROCEDURES Final Result * ECG 12 lead (03/03/2025 2:57 PM EDT) Result [facility] Elizabeth Dean NP ECG ORDERABLES Final Result * Other Reference Test - Misc (02/25/2025 11:54 AM EDT) 02/25/2025 11:5 4 AM EDT 02/25/2025 1:56 PM EDT Narrative [facility] - 02/27/2025 10:45 AM EDT [phone] Porfirio Saldivar MD LAB BLOOD ORDERABLES Final Res ult [facility] [address] [place] [phone] * Lipid Panel, Standard (03/01/2023 11:10 AM EDT) Cholesterol, Total 159 <200 mg/dL [facility] HDL Cholesterol 79 > OR = 50 mg/dL [facility] Triglycerides 44 <150 mg/dL [facility] LDL Cholesterol 67 mg/dL (calc) [facility] Comment: Reference range: <100 Desirable range <100 mg/dL for primary prevention; ?? <70 mg/dL for patients with CHD or diabetic patients with > or = 2 CHD risk factors. LDL-C is now calculated using the Rayray-Oakes calculation, which is a validated novel method providing better accuracy than the Friedewald equation in the estimation of LDL-C. Rayray SS et al. GUILLAUME. 2013;310(19): 7427-3267 (http://Zakada.Calypso Wireless/faq/RDL677) Chol/HDLC Ratio 2.0 <5.0 (calc) [facility] Non-HDL Cholesterol 80 <130 mg/dL (calc) [facility] Comment: For patients with diabetes plus 1 major ASCVD risk factor, treating to a non-HDL-C goal of <100 mg/dL (LDL-C of <70 mg/dL) is considered a therapeutic option. Blood Venous blood specimen / Unknown 03/01/2023 11:10 AM EDT 03/01/2023 11:11 AM EDT Narrative [facility] - 03/04/2023 6:21 AM EDT FASTING:NO FASTING: NO us Kyra Doyle MD LAB BLOOD ORDERABLES Final Result [facility] [address], [place] [address] [facility] [address] [place] [address] * HEPATITIS C AB W/REFL TO HCV [...] a test for HCV RNA (test code 71294) is suggested. ?? For additional information please refer to http://education.Desk/faq/QHH11w2 (This link is being provided for informational/ educational purposes only.) ?? 09/20/2022 9:25 AM EST us Porfirio Saldivar MD HISTORICAL/NON ORDERABLE LABS Final Result Performing Organization Address [facility] Co de Phone Number CONVERTED LEGACY [...] ? For additional information please refer to http://education.Desk/faq/FNL068 (This link is being provided for informational/ educational purposes only.) ? The performance of this assay has not been clinically validated in patients less than 2 years old. ?? 09/20/2022 9:25 AM EST Porfirio Saldivar MD LAB BLOOD ORDERABLES Final Res ult Performing Organization Address [facility] Co de Phone Number CONVERTED LEGACY [...] Most Recently Relevant to Health Maintenance Insurance [facility] [employer] [place] [address] [phone] Care Teams Organic Extractions Technician Relationship Specialty Start Date End Date Elizabeth Dean NP [address] [place] [address] [phone] PCP - General Family Medicine 02/25/25
--- OUTSIDE RECORDS SUMMARY | 2025-03-04 11:41 | XMS_ITS | Encounter Summary ---
Author Organization [employer] Address [address] [facility] 7t [place] [address] Care Team Providers Care Neighborhood Conservation Officer Name Role Phone Kyra Driscoll MD Primary Care Provide r Elizabeth Dean NP Primary Care Provider [phone] Reason for Visit * Reason Onset Date Comments Durable Medical Equipment 03/28/2023 Encounter Details Date Type Department Care Team (Late st Contact Info) Description 03/28/2023 Telephone [facility] [address] [place], [place] [phone] Kyra Driscoll MD 230 [place], [place] [phone] Durable Medical Equipment Social History Tobacco Use [...] for signature * Telephone Encounter - Kiera Nice - 03/28/2023 9:46 AM EDT Please [...] Description 03/11/2025 9:30 AM EDT Office Visit [facility] [address] [place] [phone] Porfirio Saldivar MD [address] [place] [phone] 03/11/2025 11:30 AM EDT Telemedicine [address] [address] Elizabeth Dean NP 230 [place] [address] documented as of this encounter Visit Diagnoses Not on filedocumented in this encounter Care Teams Neighborhood Conservation Officer Relationship Specialty Start Date End Date Kyra Driscoll MD [address] [place] [phone] PCP - General Family Medicine 06/03/19 03/03/24 Elizabeth Dean NP [address] [place] [phone] PCP - General Family Medicine 02/25/25 documented as of this encounter
--- OUTSIDE RECORDS SUMMARY | 2025-03-04 11:41 | XMS_ITS | Encounter Summary ---
Author Organization [employer] Address [address] [facility] 7t [place] [address] Care Team Providers Care Studio Hand Name Role Phone Elizabeth Dean MARCO Primary Care Provider [phone] Encounter Details Date Type Department Care Team ([facility] st Contact Info) Description 02/25/2025 Orders Only [facility] [address] [place], [place] [phone] Porfirio Saldivar MD [address] [place], [place] [phone] Social History Tobacco Use Types Packs/Day Years [...] Description 03/11/2025 9:30 AM EDT Office Visit [facility] [address] [place] [phone] Porfirio Saldivar MD 230 [place] [address] 03/11/2025 11:30 AM EDT Telemedicine [facility] [address] [place] [address] Elizabeth Dean NP [address] [place] [address] documented as of this encounter Procedures Procedure Name Priority Date/Time Associated Diagnosis Comments GLUCOSE, WHOLE BLOOD Routine 03/03/2025 5:48 PM EDT XR CHEST 1 VIEW Routine 03/03/2025 5:20 PM EDT OTHER [place] [facility] [place] 02/25/2025 11:54 AM EDT documented in this encounter Results * Glucose, Whole Blood (03/03/2025 5:48 PM EDT) Glucose, Whole Blood 91 60 - 115 mg/dL [facility] Comment:METER #: [id number] 03/03/2025 5:48 PM EDT 03/03/2025 5:51 PM EDT us Generic External Data Provider LAB BLOOD ORDERAB LES Final Result [facility] [address] [place] [phone] * XR Chest 1 View (03/03/2025 5:20 PM EDT) Anatomical Region Laterality Modality Chest Radiographic Jenna ging 03/03/2025 5:20 PM EDT Narrative 03/03/2025 5:21 PM EDT ? [facility] ?[address] ?[place] [address] ?XRay Report ? Signed ? Patient: OrtizChristie N ?MR#: [id number] ?? 31 ? : 1975 ?Acct:[id number] ? Age/Sex: 49 / F ?ADM Date: 03/03/25 ? Loc: HO.ED ? Attending Dr: ? Ordering Physician: Samantha Pike MD ?? Date of Service: 03/03/25 ?? Procedure(s): XR chest 1V ?? Accession Number(s): [id number] ? cc: Elizabeth Dean NP; Samantha Pike [...] Kelli Fowler MD in OV> ? 03/03/25 172 ? DD/ 172 ? TD/TT: 03/03/25 1720 ? Beauty Therapist: ? Procedure Note Jose Cary - 03/03/[address] [address] XRay Report Signed Patient: Christie Ortiz NMR#: [id number] 31 : 1975Acct:[id number] Age/Sex: 49 / FADM Date: 03/03/25 Loc: HO.ED Attending Dr: Ordering Physician: Samantha Pike MD Date of Service: 03/03/25 Procedure(s): XR chest 1V Accession Number(s): [id number] cc: Elizabeth Dean BAGGAGE CHECKER; Samantha Pike MD CLINICAL HISTORY: CP , [...] 03/03/25 1721 DD/ 1720 TD/TT: 03/03/25 1720 Beauty Therapist: [facility] External Provider IMG XR PROCEDURES Final Result * Other Reference Test [place] [facility] (02/25/2025 11:54 AM EDT) 02/25/2025 11:5 4 AM EDT 02/25/2025 1:56 PM EDT Narrative [facility] - 02/27/2025 10:45 AM EDT [phone] Porfirio Saldivar MD LAB BLOOD ORDERABLES Final Res ult [facility] [address] [place] [phone] documented in this encounter Visit Diagnoses Not on filedocumented in this encounter Care Teams Studio Hand Relationship Specialty Start Date End Date Elizabeth Dean NP [address] [place] [phone] PCP - General Family Medicine 02/25/25 documented as of this encounter
--- OUTSIDE RECORDS SUMMARY | 2025-03-04 11:41 | XMS_ITS | Encounter Summary ---
Author Organization [employer] Address [address] [employer] 7t [place] [address] Care Team Providers Care Licensing Director Name Role Phone Kyra Driscoll MD Primary Care Provide r Elizabeth Dean NP Primary Care Provider [phone] Reason for Visit * Reason Comments Med Refill Encounter Details Date Type Department Care Team ([facility] Contact Info) Description 06/07/[address] [facility] MEDICINE 230 [place], [place] [phone] Rachel Cash FNP [address] [place], [place] [phone] Allergy, subsequent encounter Social History Tobacco Use [...] Department Care Team (Late Contact Info) Description 03/11/2025 9:30 AM EDT Office Visit [facility] MEDICINE 230 [place], [place] [phone] Porfirio Saldivar MD 230 [place], [place] [phone] 03/11/2025 11:30 AM EDT Telemedicine [facility] MEDICINE [address] [place], [place] [phone] Elizabeth Dean NP 230 [place], [place] [phone] documented as of this encounter Visit Diagnoses Diagnosis Allergy, subsequent encounter documented in this encounter Care Teams Licensing Director Relationship Specialty Start Date End Date Kyra Driscoll MD [address] [place] [address] [phone] PCP - General Family Medicine 06/03/19 03/03/24 Elizabeth Dean NP [address] [place] [address] [phone] PCP - General Family Medicine 02/25/25 documented as of this encounter
--- OUTSIDE RECORDS SUMMARY | 2025-03-04 11:41 | XMS_ITS | Encounter Summary ---
Author Organization [employer] Address [address] [facility] 7t [place] [address] Care Team Providers Care Film Splicer Name Role Phone Elizabeth Dean MARCO Primary Care Provider [phone] Reason for Visit * Reason Comments OBAT F/U Encounter Details Date Type Department Care Team (Latest Contact Info) Description 03/04/2025 9:45 AM EDT Office Visit [facility] MEDICINE 230 [place], [place] [phone] Porfirio Saldivar MD 230 [place] [address] Uncomplicated opioid dependence (CMS/HCC) (Primary Dx) Social History Tobacco Use Types Packs/Day Years Used Date Smoking Tobacco: Never Passive Smoke Exposure: Never Smokeless Tobacco: Never Alcohol Use Standard Drinks/Week Comments Never 0 (1 standard drink = 0.6 oz pur e alcohol) Housing Stability Answer Date Recorded What is your housing situation today? I have francescopieter quinn 02/18/[address] you [...] the past 12 months, has t he Wish, [employer], oil or water [employer] threatened to shut off services in your [...] Description 03/11/2025 9:30 AM EDT Office Visit [facility] MEDICINE [address] [place] [address] Porfirio Saldivar MD [address] [place] [address] [phone] 03/11/2025 11:30 AM EDT Telemedicine [facility] MEDICINE [address] [place] [address] Elizabeth Dean NP 230 [place], [place] [phone] documented as of this encounter Procedures Procedure Name Priority Date/Time Associated Diagnosis Comments POCT PERLA-14 URINE DRUG SCREEN Routine 03/04/2025 9:51 AM EDT Uncomplicated opioid dependence ([facility]) documented in this encounter Results * POCT PERLA-14 Urine Drug Screen (03/04/2025 9:51 AM EDT) THC Negative Cocaine Screen, Urine [...] procedure / Unknown 03/04/2025 9:51 AM EDT us Porfirio Saldivar MD POINT OF CARE TEST ENTER/EDIT ORDERABLES Final Result documented in this encounter Visit Diagnoses Diagnosis Uncomplicated opioid dependence (CMS/HCC)- Primary documented in this encounter Care Teams Film Splicer Relationship Specialty Start Date End Date Elizabeth Dean NP [address] [place] [address] PCP - General Family Medicine 02/25/25 documented as of this encounter
--- OUTSIDE RECORDS SUMMARY | 2025-03-04 11:41 | XMS_ITS | Encounter Summary ---
Author Organization [email or web address] Address 75 [facility] 7t [place] [address] Care Team Providers Care Collector Of Internal Revenue Name Role Phone Kyra Driscoll MD Primary Care Provide r Elizabeth Dean NP Primary Care Provider [phone] Reason for Visit * Reason Comments Med Refill Encounter Details Date Type Department Care Team (Late Contact Info) Description 06/07/2023 Refill [facility] MED & PEDS [address] [place], [place] [phone] Kyra Driscoll MD 230 [place], [place] [phone] Chronic nausea; Allergy, subsequent encounter Social History [...] Upcoming Encounters Date Type Department Care Team ([facility] Contact Info) Description 03/11/2025 9:30 AM EDT Office Visit [facility] MEDICINE 230 [place], [place] [phone] Porfirio Saldivar MD 230 [place], [place] [phone] 03/11/2025 11:30 AM EDT Telemedicine [facility] MEDICINE 230 [place], [place] [phone] Elizabeth Dean NP 230 [place] [address] documented as of this encounter Visit Diagnoses Diagnosis Chronic nausea Nausea alone Allergy, subsequent encounter documented in this encounter Care Teams Collector Of Internal Revenue Relationship Specialty Start Date End Date Kyra Driscoll MD [address] [place] [address] [phone] PCP - General Family Medicine 06/03/19 03/03/24 Elizabeth Dean NP 230 [place], [place] [phone] PCP - General Family Medicine 02/25/25 documented as of this encounter
--- OUTSIDE RECORDS SUMMARY | 2025-03-04 11:41 | XMS_ITS | Encounter Summary ---
Author Organization [employer] Address [address] [place] [address] 7t [place] [address] Care Team Providers Care Fishing Guide Name Role Phone Kyra Driscoll MD Primary Care Provide r Elizabeth Dean NP Primary Care Provider [phone] Reason for Visit * Reason Comments Med Refill Encounter Details Date Type Department Care Team (Late st Contact Info) Description 05/23/2023 Refill [facility] MEDICINE 230 [place], [place] [phone] Nurys Mcdonnell MD 230 [place], [place] [phone] COPD (chronic obstructive pulmonary disease) with chronic bronchitis ([facility]/HCC) Social History Tobacco Use Types Packs/Day Years [...] Description 03/11/2025 9:30 AM EDT Office Visit [facility] MEDICINE 230 [place], [place] [phone] Porfirio Saldivar MD 230 [place], [place] [phone] 03/11/2025 11:30 AM EDT Telemedicine [facility] MEDICINE 230 [place], [place] [phone] Elizabeth Dean NP 230 [place], [place] [phone] documented as of this encounter Visit Diagnoses Diagnosis COPD (chronic obstructive pulmonary disease) with chronic bronchitis ([facility]) documented in this encounter Care Teams Fishing Guide Relationship Specialty Start Date End Date Kyra Driscoll MD [address] [place] [address] [phone] PCP - General Family Medicine 06/03/19 03/03/24 Elizabeth Dean NP [address] [place] [address] [phone] PCP - General Family Medicine 02/25/25 documented as of this encounter
--- OUTSIDE RECORDS SUMMARY | 2025-03-04 11:41 | XMS_ITS | Encounter Summary ---
Author Organization [email or web address] Address [address] [facility] 7t [place] [address] Care Team Providers Care Transportation Escort Name Role Phone Elizabeth Dean MARCO Primary Care Provider [phone] Reason for Visit * Reason Onset Date Comments Med Refill 03/04/2025 Encounter Details Date Type Department Care Team (Late st Contact Info) Description 03/04/2025 Refill [facility] MEDICINE 230 [place], [place] [phone] Julia Lu RN Uncomplicated opioid dependence (CMS/[facility]) Social History Tobacco Use Types Packs/Day Years [...] 9:30 AM EDT Office Visit [facility] MEDICINE [address] [place] [address] Porfirio Saldivar MD [address] [place] [address] 03/11/2025 11:30 AM EDT Telemedicine [facility] MEDICINE [address] [place] [address] Elizabeth Dean NP [address] [place] [address] documented as of this encounter Visit Diagnoses Diagnosis Uncomplicated opioid dependence (CMS/HCC) documented in this encounter Care Teams Transportation Escort Relationship Specialty Start Date End Date Elizabeth Dean NP [address] [place] [address] PCP - General Family Medicine 02/25/25 documented as of this encounter
--- OUTSIDE RECORDS SUMMARY | 2025-03-04 11:41 | XMS_ITS | Encounter Summary ---
Author Organization [employer] Address [address] [place] [address] 7t [place] [address] Care Team Providers Care Human Resources Recruiter Name Role Phone Kyra Driscoll MD Primary Care Provide r Elizabeth Dean NP Primary Care Provider [phone] Reason for Visit * Reason Comments Med Refill Encounter Details Date Type Department Care Team (Late Contact Info) Description 06/13/[address] [facility] MEDICINE 230 [place], [place] [phone] Porfirio Saldivar MD 230 [place], [place] [phone] Uncomplicated opioid dependence (CMS/HCC) Social History Tobacco [...] Description 03/11/2025 9:30 AM EDT Office [address] [facility] MEDICINE 230 [place], [place] [phone] Porfirio Saldivar MD 230 [place], [place] [phone] 03/11/2025 11:[address] [facility] MEDICINE 230 [place], [place] [phone] Elizabeth Dean NP 230 [place] [address] documented as of this encounter Visit Diagnoses Diagnosis Uncomplicated opioid dependence (CMS/HCC) documented in this encounter Care Teams Human Resources Recruiter Relationship Specialty Start Date End Date Kyra Driscoll MD [address] [place] [address] PCP - General Family Medicine 06/03/19 03/03/24 Elizabeth Dean NP [address] [place] [address] PCP - General Family Medicine 02/25/25 documented as of this encounter
--- OUTSIDE RECORDS SUMMARY | 2025-03-04 11:41 | XMS_ITS | Encounter Summary ---
Author Organization [employer] Address 75 [facility] 7t [place] [address] Care Team Providers Care Building Maintenance Mechanic Name Role Phone Kyra Driscoll MD Primary Care Provide r Elizabeth Dean NP Primary Care Provider Reason for Visit * Reason Comments Med Refill Encounter Details Date Type Department Care Team (Late Contact Info) Description 04/17/2023 Refill [facility] CHC MED & PEDS 505 [place], [place] [phone] [facility] 230 [place] [address] Iron deficiency Social History Tobacco Use Types [...] Upcoming Encounters Date Type Department Care Team ([facility] Contact Info) Description 03/11/2025 9:30 AM EDT Office Visit [facility] MEDICINE [address] [place] [phone] Porfirio Saldivar MD 230 [place] [address] 03/11/2025 11:30 AM EDT Telemedicine [facility] MEDICINE [address] [place] [address] Elizabeth Dean NP 230 [place] [address] documented as of this encounter Visit Diagnoses Diagnosis Iron deficiency Disorders of iron metabolism documented in this encounter Care Teams Building Maintenance Mechanic Relationship Specialty Start Date End Date Kyra Driscoll MD [address] [place] [address]683 PCP - General Family Medicine 06/03/19 03/03/24 Elizabeth Dean NP [address] [place] [address] PCP - General Family Medicine 02/25/25 documented as of this encounter
--- OUTSIDE RECORDS SUMMARY | 2025-03-04 11:41 | XMS_ITS | Encounter Summary ---
Author Organization [employer] Address [address] [facility] 7t [place] [address] Care Team Providers Care Order Entry Clerk Name Role Phone Elizabeth Dean NP Primary Care Provider [phone] Reason for Visit * Reason Onset Date Comments Medication Question 03/04/2025 Patient walk ed in Concern with her sensor pt wants to know if she can remove it. Because the reading are different when she does it in her fingers readings. Med Refill 03/04/2025 Patient requesti ng med refill for Naloxone 4mg Encounter Details Date Type Department Care Team (Late st Contact Info) Description 03/04/2025 Refill [facility] MEDICINE 230 [place], [place] [phone] Elizabeth Dean NP 230 [place], [place] [phone] Other muscle spasm (Primary Dx); Hypoglycemia Social History Tobacco Use Types Packs/Day Years [...] encounter Miscellaneous Notes * Telephone Encounter - Kelli Arroyo RN - 03/04/2025 10:56 AM EDT Pt evaluated at [facility] ED 03/03/25 dx: Pleurisy. Appt detail updated for upcoming f/u with pcp. T/C to [facility] pharmacy. Anuja states that pharmacy can fill naloxone rx for pt now. T/C to pt who reports that she was rx a cgm in [place]. Reports that she removed sensor because it was constantly alarming due to low blood sugar but when she checked on her glucometer her sugar was low normal . Pt reports that she no longer has a glucometer as it was lost during travel. No s/s of hypoglycemia reported now. Advised pt of WIC availability if symptomatic. Pt also requesting a med refill for tizanidine 4 mg. Call returned to [facility] pharmacy. Anuja states pt's insurance will pay for One touch Ultra 2 meter, ultra test strips and Delica Lancets. [facility] pharmacy will call insurance to request override oncerx are received. Meds pended to pcp for review. * Telephone Encounter - Baylee Cai - 03/04/2025 9:44 AM EDT Patient requesting med refill for Naloxone 4mg * Telephone Encounter - Baylee Cai - 03/04/2025 9:27 AM EDT Patient walked in Concern with her sensor pt wants to know if she can remove it. Because the reading are different when she does it in her fingers readings. documented in this encounter Plan of Treatment Upcoming Encounters Date Type Department Care Team (Late st Contact Info) Description 03/11/2025 9:30 AM EDT Office Visit [facility] MEDICINE [address] [place] [address] Porfirio Saldivar MD 230 [place] [address] 03/11/2025 11:30 AM EDT Telemedicine [facility] MEDICINE 230 [place] [address] Elizabeth Dean NP 230 [place] [address] documented as of this encounter Visit Diagnoses Diagnosis Other muscle spasm- Primary Hypoglycemia Hypoglycemia, unspecified documented in this encounter Care Teams Order Entry Clerk Relationship Specialty Start Date End Date Elizabeth Dean NP 230 [place] [address] PCP - General Family Medicine 02/25/25 documented as of this encounter
--- OUTSIDE RECORDS SUMMARY | 2025-03-04 11:41 | XMS_ITS | Encounter Summary ---
Author Organization [employer] Address [address] [facility] [address] 7t [place] [address] Care Team Providers Care Cable Lacer Name Role Phone Elizabeth Dean NP Primary Care Provider [phone] Encounter Details Date Type Department Care Team ([facility] st Contact Info) Description 03/03/2025 2:30 PM EDT Office Visit [facility] MEDICINE 230 [place], [place] [phone] Elizabeth Dean NP 230 [place], [place] [phone] Systolic murmur (Primary Dx); Tachycardia Social History [...] Description 03/11/2025 9:30 AM EDT Office Visit [facility] MEDICINE 230 [place] [address] Porfirio Saldivar MD 230 [place] [address] 03/11/2025 11:30 AM EDT Telemedicine [facility] MEDICINE 230 [place], [place] [phone] Elizabeth Dean NP 230 [place] [address] documented as of this encounter Procedures Procedure Name Priority Date/Time Associated Diagnosis Comments ECG 12-LEAD Routine 03/03/2025 2:57 PM EDT Tachycardia documented in this encounter Results * ECG 12 lead (03/03/2025 2:57 PM EDT) Elizabeth Dean NP ECG ORDERABLES Final Result documented in this encounter Visit Diagnoses Diagnosis Systolic murmur- Primary Undiagnosed cardiac murmurs Tachycardia Unspecified tachycardia documented in this encounter Care Teams Cable Lacer Relationship Specialty Start Date End Date Elizabeth Dean NP [address] [place] [address] PCP - General Family Medicine 02/25/25 documented as of this encounter
--- OUTSIDE RECORDS SUMMARY | 2025-03-04 11:41 | XMS_ITS | Encounter Summary ---
Author Organization [employer] Address 75 [facility] 7t [place] [address] Care Team Providers Care Test Borer Name Role Phone Kyra Driscoll MD Primary Care Provide r Elizabeth Dean NP Primary Care Provider [phone] Reason for Visit * Reason Comments Med Refill Encounter Details Date Type Department Care Team ([facility] Contact Info) Description 04/22/2023 Refill [facility] MEDICINE 230 [place], [place] [phone] Kyra Driscoll MD 230 [place], [place] [phone] Moderate persistent asthma without complication Social History [...] Upcoming Encounters Date Type Department Care Team ([facility] Contact Info) Description 03/11/2025 9:30 AM EDT Office Visit [facility] MEDICINE [address] [place] [address] Porfirio Saldivar MD 230 [place] [address] 03/11/2025 11:30 AM EDT Telemedicine [address] [address] Elizabeth Dean NP 230 [place] [address] documented as of this encounter Visit Diagnoses Diagnosis Moderate persistent asthma without complication documented in this encounter Care Teams Test Borer Relationship Specialty Start Date End Date Kyra Driscoll MD [address] [place] [address] PCP - General Family Medicine 06/03/19 03/03/24 Elizabeth Dean NP [address] [place] [address] PCP - General Family Medicine 02/25/25 documented as of this encounter
--- OUTSIDE RECORDS SUMMARY | 2025-03-04 11:41 | XMS_ITS | Encounter Summary ---
Author Organization [employer] Address [address] [facility] 7t [place] [address] Care Team Providers Care Metal Window Screen Assembler Name Role Phone Kyra Driscoll MD Primary Care Provide r Elizabeth Dean NP Primary Care Provider [phone] Reason for Visit * Reason Comments Med Refill Encounter Details Date Type Department Care Team (Late Contact Info) Description 03/15/2023 Refill [facility] CHC MED & PEDS 505 [place], [place] [phone] Nurys Mcdonnell MD 230 [place] [address] Other migraine without status migrainosus, not intractable [...] Upcoming Encounters Date Type Department Care Team ([facility] Contact Info) Description 03/11/2025 9:30 AM EDT Office Visit [facility] MEDICINE [address] [place] [address] Porfirio Saldivar MD [address] [place] [address] 03/11/2025 11:30 AM EDT Telemedicine [address] [address] Elizabeth Dean NP [address] [place] [address] documented as of this encounter Visit Diagnoses Diagnosis Other migraine without status migrainosus, not intractable documented in this encounter Care Teams Metal Window Screen Assembler Relationship Specialty Start Date End Date Kyra Driscoll MD [address] [place] [address] [phone] PCP - General Family Medicine 06/03/19 03/03/24 Elizabeth Dean NP [address] [place] [address] [phone] PCP - General Family Medicine 02/25/25 documented as of this encounter
--- OUTSIDE RECORDS SUMMARY | 2025-03-04 11:41 | XMS_ITS | Encounter Summary ---
Author Organization [employer] Address [address] [facility] [address] 7t [place] [address] Care Team Providers Care Customer Account Representative Name Role Phone Elizabeth Dean MARCO Primary Care Provider [phone] Encounter Details Date Type Department Care Team (Latest Contact Info) Description 03/04/2025 Travel Social History Tobacco Use Types Packs/Day [...] 03/11/2025 9:30 AM EDT Office Visit [facility] MEDICINE [address] [place] [address] Porfirio Saldivar MD 230 [place] [address] 03/11/2025 11:30 AM EDT Telemedicine [facility] MEDICINE [address] [place] [address] Elizabeth Dean NP 230 [place] [address] documented as of this encounter Visit Diagnoses Not on filedocumented in this encounter Care Teams Customer Account Representative Relationship Specialty Start Date End Date Elizabeth Dean NP [address] [place] [address] PCP - General Family Medicine 02/25/25 documented as of this encounter
--- OUTSIDE RECORDS SUMMARY | 2025-03-04 11:41 | XMS_ITS | Encounter Summary ---
Author Organization [employer] Address [address] [facility] [address] 7t [place] [address] Care Team Providers Care Cotton Candy Maker Name Role Phone Elizabeth Dean MARCO Primary Care Provider [phone] Encounter Details Date Type Department Care Team [...] Description 03/11/2025 9:30 AM EDT Office Visit [facility] MEDICINE [address] [place] [address] Porfirio Saldivar MD 230 [place] [address] 03/11/2025 11:30 AM EDT Telemedicine [facility] MEDICINE [address] [place] [address] Elizabeth Dean NP 230 [place] [address] documented as of this encounter Visit Diagnoses Not on filedocumented in this encounter Care Teams Cotton Candy Maker Relationship Specialty Start Date End Date Elizabeth Dean NP [address] [place] [address] PCP - General Family Medicine 02/25/25 documented as of this encounter
--- OUTSIDE RECORDS SUMMARY | 2025-03-04 11:41 | XMS_ITS | Encounter Summary ---
Author Organization [employer] Address 75 [facility] 7t [place] [address] Care Team Providers Care Shoe Lining Fitter Name Role Phone JovannaElizabeth ham MARCO Primary Care Provider [phone] Reason for Visit * Reason Onset Date Comments Chart Prep 02/28/2025 Encounter Details Date Type Department Care Team ([facility] st Contact Info) Description 02/28/2025 Telephone [facility] MEDICINE 230 [place], [place] [phone] Kenzie Loera MA Chart Prep Social History [...] Description 03/11/2025 9:30 AM EDT Office Visit [facility] MEDICINE [address] [place] [address] Porfirio Saldivar MD [address] [place] [address] 03/11/2025 11:30 AM EDT Telemedicine [facility] MEDICINE [address] [place] [address] Elizabeth Dean NP [address] [place] [address] documented as of this encounter Visit Diagnoses Not on filedocumented in this encounter Care Teams Shoe Lining Fitter Relationship Specialty Start Date End Date Elizabeth Dean NP [address] [place] [address] PCP - General Family Medicine 02/25/25 documented as of this encounter
--- OUTSIDE RECORDS SUMMARY | 2025-03-04 11:41 | XMS_ITS | Encounter Summary ---
Author Organization [facility] Address [address] [facility] 7t [place] [address] Care Team Providers Care Corporate Strategist Name Role Phone Kyra Driscoll MD Primary Care Provide r Elizabeth Dean NP Primary Care Provider Reason for Visit * Reason Comments Med Refill Encounter Details Date Type Department Care Team ([facility] Contact Info) Description 04/24/2023 Refill [facility] 230 [place], [place] [phone] Kyra Driscoll MD 230 [place], [place] [phone] Allergy, subsequent encounter Social History Tobacco Use [...] Team ([facility] Contact Info) Description 03/11/2025 9:30 AM EDT Office Visit [facility] [address] [place] [phone] Porfirio Saldivar MD 230 [place] [address] 03/11/2025 11:30 AM EDT Telemedicine [address] [address] Elizabeth Dean NP 230 [place] [address] documented as of this encounter Visit Diagnoses Diagnosis Allergy, subsequent encounter documented in this encounter Care Teams Corporate Strategist Relationship Specialty Start Date End Date Kyra Driscoll MD [address] [place] [address] PCP - General Family Medicine 06/03/19 03/03/24 Elizabeth Dean NP [address] [place] [address] PCP - General Family Medicine 02/25/25 documented as of this encounter
--- OUTSIDE RECORDS SUMMARY | 2025-03-04 11:41 | XMS_ITS | Encounter Summary ---
Author Organization [employer] Address [address] [facility] 7t [place] [address] Care Team Providers Care Director Wholesale Name Role Phone Kyra Driscoll MD Primary Care Provide r Elizabeth Dean NP Primary Care Provider [phone] Reason for Visit * Reason Comments Med Refill Encounter Details Date Type Department Care Team (Late Contact Info) Description 03/10/2023 Refill [facility] 230 [place], [place] [phone] Nurys Mcdonnell MD 230 [place], [place] [phone] Allergy, subsequent encounter Social History Tobacco Use [...] Type Department Care Team ([facility] Contact Info) Description 03/11/2025 9:30 AM EDT Office Visit [facility] [address] [place] [address] [phone] Porfirio Saldivar MD [address] [place], [place] [phone] 03/11/2025 11:30 AM EDT Telemedicine [facility] [address] [place] [phone] Elizabeth Dean NP 230 [place] [address] documented as of this encounter Visit Diagnoses Diagnosis Allergy, subsequent encounter documented in this encounter Care Teams Director Wholesale Relationship Specialty Start Date End Date Kyra Driscoll MD [address] [place] [address] [phone] PCP - General Family Medicine 06/03/19 03/03/24 Elizabeth Dean NP [address] [place] [address] [phone] PCP - General Family Medicine 02/25/25 documented as of this encounter
--- OUTSIDE RECORDS SUMMARY | 2025-03-04 11:41 | XMS_ITS | Encounter Summary ---
Author Organization [employer] Address [address] [facility] 7t [place] [address] Care Team Providers Care Pediatric Critical Care Nurse Name Role Phone Elizabeth Dean MARCO Primary Care Provider [phone] Reason for Visit * Reason Onset Date Comments Med Refill 03/04/2025 Insurance 03/04/2025 Encounter Details Date Type Department Care Team (Late st Contact Info) Description 03/04/2025 Refill [facility] 230 [place], [place] [phone] Julia Lu RN Uncomplicated opioid dependence (CMS/[facility]) Social History Tobacco Use Types Packs/Day Years [...] encounter Miscellaneous Notes * Telephone Encounter - Doreen Louie - 03/04/2025 11:17 AM EDT Outgoing call to patient. No answer. Left a voicemail informing the patient that her insurance on file is assigned to the [facility]. Patient needs to switch Insurance to the [facility]. documented in this encounter Plan of Treatment Upcoming Encounters Date Type Department Care Team (Late st Contact Info) Description 03/11/2025 9:30 AM EDT Office Visit [facility] MED[facility] [address] [place] [address] Porfirio Saldivar MD [address] [place] [address] 03/11/2025 11:30 AM EDT Telemedicine [facility] [address] [place] [address] Elizabeth Dean NP 230 [place] [address] documented as of this encounter Visit Diagnoses Diagnosis Uncomplicated opioid dependence (CMS/HCC) documented in this encounter Care Teams Pediatric Critical Care Nurse Relationship Specialty Start Date End Date Elizabeth Dean NP [address] [place] [phone] PCP - General Family Medicine 02/25/25 documented as of this encounter
--- OUTSIDE RECORDS SUMMARY | 2025-03-04 11:41 | XMS_ITS | Encounter Summary ---
Author Organization [employer] Address [address] [facility] 7t [place] [address] Care Team Providers Care Division Officer Weapons Department Name Role Phone Kyra Driscoll MD Primary Care Provide r Elizabeth Dean NP Primary Care Provider [phone] Reason for Visit * Reason Comments Med Refill Encounter Details Date Type Department Care Team (Late st Contact Info) Description 05/23/2023 Refill [facility] [address] [place], [place] [phone] Kyra Driscoll MD 230 [place], [place] [phone] Social History Tobacco Use Types Packs/Day Years [...] Description 03/11/2025 9:30 AM EDT Office Visit [facility] 230 [place], [place] [phone] Porfirio Saldivar MD 230 [place], [place] [phone] 03/11/2025 11:30 AM EDT Telemedicine [facility] MED[facility]INE 230 [place], [place] [phone] Elizabeth Dean NP 230 [place], [place] [phone] documented as of this encounter Visit Diagnoses Not on filedocumented in this encounter Care Teams Division Officer Weapons Department Relationship Specialty Start Date End Date Kyra Driscoll MD [address] [place] [address] [phone] PCP - General Family Medicine 06/03/19 03/03/24 Elizabeth Dean NP [address] [place] [address] [phone] PCP - General Family Medicine 02/25/25 documented as of this encounter
[2025-03-04 11:44] LABS: Basophils Percent Auto 0.4 % (0-2); Eosinophils Absolute Auto 0.2 X10*3/uL (0.0-0.4); Eosinophils Percent Auto 3.6 % (0-4); Hematocrit 39.5 % (37.0-47.0); Hemoglobin 12.7 g/dl (12.0-16.0); Imm Gran Abs Auto 0.02 X10*3/uL (0.00-0.03); Imm Gran Pct Auto 0.4 % (0.0-0.4); Lymphocytes Absolute Auto 0.9 X10*3/uL (1.2-4.9); Lymphocytes Percent Auto 16.7 % (20-40); Mean Corpuscular HGB Conc 32.2 g/dl (31.0-35.0); Mean Corpuscular Hemoglobin 29.7 pg (27.0-33.0); Mean Corpuscular Volume 92.5 fL (80.0-98.0); Mean Platelet Volume 10.5 fL (9.4-12.3); Monocytes Absolute Auto 0.4 X10*3/uL (0.1-1.2); Monocytes Percent Auto 6.7 % (2-11); Neutrophils Absolute Auto 3.8 x10*3/uL (2.0-8.3); Neutrophils Percent Auto 72.2 % (45-73); Platelet Count 199 X10*3/uL (160-400); Red Blood Count 4.27 X10*6/uL (4.20-5.50); Red Cell Distribution Width 12.1 % (11.0-16.0); White Blood Count 5.2 X10*3/uL (4.8-10.8)
[2025-03-04 11:56] LABS: Alanine Aminotransferase 23 U/L (0-31); Alkaline Phosphatase 144 U/L (39-117); Aspartate Amino Transferase 42 U/L (5-31); Bilirubin Direct 0.1 mg/dL (0.0-0.5); Bilirubin Total 0.3 mg/dL (0.0-1.0); Total Protein 7.1 g/dL (6.5-8.0)
[2025-03-04 12:10] LABS: HBS Num1 14.81 mIU/mL (0-7.99); HBc Num1 0.26 S/CO (0.00-0.79); HBsAGNum1 0.32 S/CO (0.00-0.99); HIV AB/AG Nonreactive (Nonreactive); HIV Num 1 0.09 S/CO (0.00-0.99); Hepatitis B Core Antibody Nonreactive (Nonreactive); Hepatitis B Surface Antigen Negative (Negative); ~HepC Num1 0.13 S/CO (0.00-0.79); ~Hepatitis B Surface Antibody REACTIVE (Nonreactive); ~Hepatitis C Antibody Nonreactive (Nonreactive)
[2025-03-04 12:32] LABS: Hepatitis A Antibody IgG Nonreactive (Nonreactive); ~Hepatitis A Antibody IgG 0.35 S/CO (0.00-0.99)
[2025-03-06 10:09] LABS: RPR Rapid Plasma Reagin NON-REACTIVE (NON-REACTIVE)
[2025-03-07 01:54] LABS: TS Negative Control Passed; TS Panel A 0; TS Panel B 1; TS Positive Control Passed; TSpotTB Negative (Negative)
== END 2025-03-04 10:14 | disposition home or self-care (01) ==
LOC: HO.HHCL 10:13
PROVIDERS: Emergency Medicine; Visit Provider Emergency Medicine
DX: F11.20 Opioid dependence, uncomplicated (principal)
CPT/HCPCS: 36415; 80076; 85025; 86481; 86592; 86704; 86706; 86708; 86803; 87340; 87389

== ENCOUNTER 2025-04-07 14:00 | Outpatient (REF) | payer OTHER, SELFPAY ==
--- NOTE | ~2025-04-07 | XR_ITS ---
EXAMINATION: XR CHEST CLINICAL INFORMATION: PAIN, right lower chest pain COMPARISON: 01/19/2023 TECHNIQUE: 2 views of the chest were obtained. FINDINGS: Lungs are clear and well aerated. No pleural effusions are evident. Heart and mediastinal contours are within normal limits. Bony structures are unremarkable. Surgical clips project over the left hemidiaphragm. XR/XR chest 2V IMPRESSION: Stable chest x-ray. No acute disease. Electronically signed by: Garcia Ortiz MD 04/07/2025 02:32 PM EDT
--- OUTSIDE RECORDS SUMMARY | 2025-04-07 15:19 | XMS_ITS | Clinical Summary ---
[facility] Organization [facility] Address [address] [place] [address] Care Team Providers Care Jet Worker Name Role Phone Kyra Driscoll MD Primary Care Provide r Surgical History Surgery Date Site/Laterality Comments TUBAL LIGATION 2006 Bilateral PROCEDURE: HISTORICAL TUBAL LIGATION OTHER SURGICAL HISTORY 2006 PROCEDURE: [place] HYSTEROSCOPY ENDOMETRIAL ABLATION GASTRIC BYPASS 2003 PROCEDURE: GASTRIC BYPASS FOR OBESIT; COMMENT: revision 2019 BREAST REDUCTION 2002 PROCEDURE: [place] BREAST REDUCTION OTHER SURGICAL HISTORY 2009 PROCEDURE: ---- HEMORRHOIDS ---- CARPAL TUNNEL RELEASE 2010 PROCEDURE: [place] NEUROPLASTY &/TRANSPOS MEDIAN NRV CARPAL TUNNE KNEE ARTHROPLASTY Right PROCEDURE: [place] ARTHRS KNEE ABRASION ARTHRP/JOB COMPOSITOR DRLG/MICROFX BACK SURGERY PROCEDURE: HISTORICAL BACK SURGERY; COMMENT: lower back ? 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 ([facility] V24, [facility] V28) DX:Opioid depend w opioid-in maxime psychotic disorder w delusions ([facility]) Back pain DX:Back pain Cramps of lower extremity DX:Gum Sprayer mps of lower extremity Gastric bypass status for obesity DX:Gastric bypass status for obesity Knee pain DX:Knee pain Back pain DX:Back pain Systolic murmur DX:Systolic murm ur Seizure disorder ([facility] V2 4, [facility] V28) DX:Seizure disorder ([facility]) Bilateral hearing loss DX:Bilate ral hearing loss Bronchitis DX:Bronchitis Migraine DX:Migraine Scalp psoriasis DX:Scalp psorias is Bipolar 1 disorder (CMS/[facility] V24, [facility]/HCC V28) DX:Bipolar 1 disorder (HCC) Family [...] RESULTING AGENCY - 03/27/2020 12:15 PM EDT [id number] THINPREP PAP, IMAGED: NEGATIVE FOR SQUAMOUS INTRAEPITHELIAL [...] Recently Relevant to Health Maintenance Care Teams Jet Worker Relationship Specialty Start Date End Date Kyra Driscoll MD [address] [address] PCP - General Internal Medicine 08/13/21
== END 2025-04-07 14:01 | disposition home or self-care (01) ==
LOC: HO.HHCX 14:00
PROVIDERS: Visit Provider Nurse Practitioner Family
DX: R07.9 Chest pain, unspecified (principal)
CPT/HCPCS: 71046

== ENCOUNTER → 2025-04-07 14:04 | Outpatient (BNV) | payer OTHER, SELFPAY | PROVIDERS: Visit Provider Radiology Diagnostic Radiology | DX: R07.89 Other chest pain (principal) | CPT/HCPCS: 71046 ==

== ENCOUNTER 2025-04-15 13:12 | Outpatient (REF) | payer MEDICARE, MEDICAID, SELFPAY ==
[2025-04-15 13:32] LABS: Barbiturates, Urine POSITIVE (Not Detect)
--- OUTSIDE RECORDS SUMMARY | 2025-04-15 15:35 | XMS_ITS | Encounter Summary ---
Author Organization [employer] Address [address] [facility] 7t [place] [address] Care Team Providers Care Manager Front Office Name Role Phone Kyra Driscoll MD Primary Care Provide r Elizabeth Dean NP Primary Care Provider [phone] Reason for Visit * Reason Comments Med Refill Encounter Details Date Type Department Care Team (Late Contact Info) Description 06/16/2023 Refill [facility] 230 [place], [place] [phone] Kyra Driscoll MD 230 [place], [place] [phone] Other muscle spasm Social History Tobacco Use [...] Care Team (Late st Contact Info) Description 04/22/2025 2:30 PM EDT Office Visit [facility] 230 [place], [place] [phone] Elizabeth Dean NP 230 [place], [place] [phone] 04/29/2025 10:30 AM EDT Clinical Support [facility] [address] [place] [address] Julia Lu RN documented as of this encounter Visit Diagnoses Diagnosis Other muscle spasm documented in this encounter Care Teams Manager Front Office Relationship Specialty Start Date End Date Kyra Driscoll MD 230 [place] [address] PCP - General Family Medicine 06/03/19 03/03/24 Elizabeth Dean NP 230 [place] [address] PCP - General Family Medicine 02/25/25 documented as of this encounter
== END 2025-04-15 13:13 | disposition home or self-care (01) ==
LOC: HO.HHCLNP 13:12
PROVIDERS: Visit Provider Emergency Medicine
DX: F11.20 Opioid dependence, uncomplicated (principal)
CPT/HCPCS: 80307; G0480

== ENCOUNTER 2025-04-22 17:24 | Outpatient (REF) | payer MEDICARE, MEDICAID, SELFPAY ==
--- OUTSIDE RECORDS SUMMARY | 2025-04-22 18:44 | XMS_ITS | Encounter Summary ---
Author Organization [employer] Address [address] [facility] 7t [place] [address] Care Team Providers Care Supervisor Lace Tearing Name Role Phone Kyra Driscoll MD Primary Care Provide r Elizabeth Dean NP Primary Care Provider [phone] Reason for Visit * Reason Comments Med Refill Encounter Details Date Type Department Care Team (Late st Contact Info) Description 06/16/2023 Refill [facility] MED[facility]INE [address] [place] [address] [phone] Kyra Driscoll MD 230 [place], [place] [phone] Other muscle spasm Social History Tobacco Use [...] Care Team (Late st Contact Info) Description 04/29/2025 10:30 AM EDT Clinical Support [facility] [address] [place] [address] [phone] Julia Lu RN 05/12/2025 11:00 AM EDT Office Visit [facility] [address] [place] [address] [phone] 06/10/2025 1:00 PM EDT Procedure Visit [facility] 230 [place], [place] [phone] Elizabeth Dean NP 230 [place], [place] [phone] documented as of this encounter Visit Diagnoses Diagnosis Other muscle spasm documented in this encounter Care Teams Supervisor Lace Tearing Relationship Specialty Start Date End Date Kyra Driscoll MD 230 [place], [place] [phone] PCP - General Family Medicine 06/03/19 03/03/24 Elizabeth Dean NP 230 [place], [place] [phone] PCP - General Family Medicine 02/25/25 documented as of this encounter
[2025-04-23 10:06] LABS: Bacterial Vaginosis PCR NEGATIVE (Negative); Candida Group PCR DETECTED (Not Detect); Candida glab krusei PCR NOT DETECTED (Not Detect); Trichomonas vaginalis PCR NOT DETECTED (Not Detect)
== END 2025-04-22 17:25 | disposition home or self-care (01) ==
LOC: HO.HHCLNP 17:24
PROVIDERS: Visit Provider Nurse Practitioner Family
DX: N89.8 Other specified noninflammatory disorders of vagina (principal)
CPT/HCPCS: 81515

== ENCOUNTER 2025-06-10 16:06 | Outpatient (REF) | payer MEDICARE, MEDICAID, SELFPAY ==
--- OUTSIDE RECORDS SUMMARY | 2025-06-10 16:15 | XMS_ITS | Clinical Summary ---
Author Organization [facility] Address [address] [place] [address] Care Team Providers Care Heater Room Helper Name Role Phone Kyra Driscoll MD Primary Care Provide r Surgical History Surgery Date Site/Laterality Comments TUBAL LIGATION 2006 Bilateral PROCEDURE: HISTORICAL TUBAL LIGATION OTHER SURGICAL HISTORY 2006 PROCEDURE: [place] HYSTEROSCOPY ENDOMETRIAL ABLATION GASTRIC BYPASS 2003 PROCEDURE: GASTRIC BYPASS FOR OBESIT; COMMENT: revision 2019 BREAST REDUCTION 2002 PROCEDURE: [place] BREAST REDUCTION OTHER SURGICAL HISTORY 2009 PROCEDURE: ---- HEMORRHOIDS ---- CARPAL TUNNEL RELEASE 2010 PROCEDURE: [place] NEUROPLASTY &/TRANSPOS MEDIAN NRV CARPAL TUNNE KNEE ARTHROPLASTY Right PROCEDURE: [place] ARTHRS KNEE ABRASION ARTHRP/COLLISION TECHNICIAN DRLG/MICROFX BACK SURGERY PROCEDURE: HISTORICAL BACK SURGERY; COMMENT: lower back ? 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 ([facility] V24, [facility] V28) DX:Opioid depend w opioid-in maxime psychotic disorder w delusions ([facility]) Back pain DX:Back pain Cramps of lower extremity DX:Stock Clerk mps of lower extremity Gastric bypass status for obesity DX:Gastric bypass status for obesity Knee pain DX:Knee pain Back pain DX:Back pain Systolic murmur DX:Systolic murm ur Seizure disorder ([facility] V2 4, [facility] V28) DX:Seizure disorder ([facility]) Bilateral hearing loss DX:Bilate ral hearing loss Bronchitis DX:Bronchitis Migraine DX:Migraine Scalp psoriasis DX:Scalp psorias is Bipolar 1 disorder (CMS/[facility] V24, [facility]/HCC V28) DX:Bipolar 1 disorder (HCC) Family [...] series) 1992 Colorectal Cancer Screening: Colonoscopy 10/09/2022 HIV Screening 10/09/2022 Hepatitis C Screening 10/09/2022 Social Influencers of Health Screening 10/09/2022 Cervical Cancer Screening: P ap Smear 03/19/2023 03/19/2020 Pneumococcal Vaccine: 50+ Ye ars (1 of 1 - PCV) 2023 Zoster Vaccines (1 of 2) 2023 Depression Screening 11/06/2024 Influenza Vaccine (#1) 2025 HIB Vaccines Aged Out No longer [...] RESULTING AGENCY - 03/27/2020 12:15 PM EDT [id number] THINPREP PAP, IMAGED: NEGATIVE FOR SQUAMOUS INTRAEPITHELIAL LESION AND MALIGNANCY . REACTIVE CELLULAR CHANGES. PRATEEK WORRELL , CT(ASCP) (CASE SCREENED 03 25 2020) SABRINA ALAS M.D. , PATHOLOGIST (CASE ELECTRONICALLY SIGNED 03 26 2020) RESULT OF [facility] HIGH RISK HPV ASSAY: HIGH RISK HPV: NEGATIVE (SEROTYPES 16,18,31,33,35,39,45,51,52,56,58,59,66,68) COMPLETED ON 2020-03-23 ADEQUACY: SATISFACTORY ENDOCERVICAL/TRANSFORMATION ZONE COMPONENT PRESENT. SOURCE: THINPREP PAP HPV ANY DX: REFLEX 16 AND 18, CERVICAL, IMAGED CLINICAL INFORMATION: HPV ANY DIAGNOSIS. PAP HX NEG, Z12.4. us Isma Casey MD LAB CYTOLOGY ORDERABLES Final Result HISTORICAL TESTING LAB RESULTING AGENCY from Last 3 Months or Most Recently Relevant to Health Maintenance Care Teams Heater Room Helper Relationship Specialty Start Date End Date Kyra Driscoll MD [address] [phone] PCP - General Internal Medicine 08/13/21
--- OUTSIDE RECORDS SUMMARY | 2025-06-10 16:15 | XMS_ITS | Encounter Summary ---
Author Organization [facility] Address [address] [facility] [address] [place] [address] Phone Care Team Providers Care Binder Roller Name Role Phone Nohemi Nunez DO Primary Care Provider Encounter Details Date Type Department Care Team (Late st Contact Info) Description 01/15/2018 Ancillary Orders [facility] [address] [place] [address] [place], [place] [phone] Kyle Lundberg DO [address] [place] [address] Tachycardia Social History Tobacco Use Types Packs/Day Years Used Date Smoking Tobacco: Never Assessed Comments Unknown Sex and Gender Information Value Date Recorded Sex Assigned at Not on file Legal Sex Female 10:31 PM EDT Gender Identity Not on file Sexual Orientation Not on file documented as of this encounter Plan of Treatment Not on file documented as of this encounter Results * Holter Monitor 24 Hours (01/15/2018 11:23 AM EDT) Anatomical Region Laterality Modality Heart Other Narrative 01/15/2018 4:56 PM EDT 24-hour monitor: No symptoms reported. Patient event markers pressed. Baseline rhythm is sinus with a minimum heart rate 50 maximum 155 average 86 bpm. Rare PACs and PVCs present. Patient event markers during sinus rhythm and sinus tachycardia. Impression: Normal 24-hour monitor. Symptoms during sinus rhythm and sinus tachycardia. Kyle Lundberg DO [facility] ORDERABLE S Final Result documented in this encounter Visit Diagnoses Diagnosis Tachycardia Unspecified tachycardia Tachycardia Unspecified tachycardia documented in this encounter Care Teams Binder Roller Relationship Specialty Start Date End Date Nohemi Nunez DO [address] [place] [address] PCP - General 11/09/17 documented as of this encounter Additional Source Comments The information contained in this document represents components of the legal health record. It is not the complete legal health record.[facility]
== END 2025-06-10 16:07 | disposition home or self-care (01) ==
LOC: HO.HHCLNP 16:06
PROVIDERS: Visit Provider Nurse Practitioner Family
DX: Z12.4 Encounter for screening for malignant neoplasm of cervix (principal); Z11.51 Encounter for screening for human papillomavirus (HPV)
CPT/HCPCS: 87626; 88175

== ENCOUNTER 2025-08-27 09:59 | Outpatient (REF) | payer MEDICARE, MEDICAID, SELFPAY ==
--- OUTSIDE RECORDS SUMMARY | 2025-08-27 12:04 | XMS_ITS | Clinical Summary ---
Author Organization [facility] Address [address] [place] [address] Phone Care Team Providers Care Mobile Web Application Developer Name Role Phone Mayra Nohemi Primary Care Provider Social History Tobacco Use Types Packs/Day Years Used Date Smoking Tobacco: Never Assessed Education Answer Date Recorded Are you interested in more education? Not on citlali e 03/03/2023 Are you concerned about learning? Not on file 03/03/2023 No 03/03/2023 No 03/03/2023 Digital Access Answer Date Recorded No 04/03/2023 No 04/03/2023 No 04/03/2023 Reliable internet access at home? Not on file 04/03/2023 Device with a working camera? Not on file Comments Unknown Sex and Gender Information Value Date Recorded Sex Assigned at Not on file Legal Sex Female 10:31 PM EDT Gender Identity Not on file Sexual Orientation Not on file Plan of Treatment Not on file Medical Devices Not on file Insurance MEDICARE PART A & B [facility] MEDICARE PART A & B [facility] MEDICARE PART A & B [place] [facility] & [place] & B Member Subscriber Plan / Payer ( fective 2017-Present) Name:Christie Ortiz Member ID:[id number] Relation to Subscriber:Self Name:Christie Ortiz Subscriber ID:[id number] Payer ID:[id number] Group ID:Not on file Type:Medicare Address: [employer] [address] [place] [phone] [place] [facility] Care Teams Mobile Web Application Developer Relationship Specialty Start Date End Date Nohemi Nunez DO [address] [place] [phone] PCP - General 11/09/17 Additional Source Comments The information contained in this document represents components of the legal health record. It is not the complete legal health record.[facility]
--- OUTSIDE RECORDS SUMMARY | 2025-08-27 12:04 | XMS_ITS | Clinical Summary ---
Author Organization [facility] Address [address] [place] [address] Care Team Providers Care Leaf Blender Name Role Phone Kyra Driscoll MD Primary Care Provide r Surgical History Surgery Date Site/Laterality Comments TUBAL LIGATION 2006 Bilateral PROCEDURE: HISTORICAL TUBAL LIGATION OTHER SURGICAL HISTORY 2006 PROCEDURE: [place] HYSTEROSCOPY ENDOMETRIAL ABLATION GASTRIC BYPASS 2003 PROCEDURE: GASTRIC BYPASS FOR OBESIT; COMMENT: revision 2019 BREAST REDUCTION 2002 PROCEDURE: [place] BREAST REDUCTION OTHER SURGICAL HISTORY 2009 PROCEDURE: ---- HEMORRHOIDS ---- CARPAL TUNNEL RELEASE 2010 PROCEDURE: [place] NEUROPLASTY &/TRANSPOS MEDIAN NRV CARPAL TUNNE KNEE ARTHROPLASTY Right PROCEDURE: [place] ARTHRS KNEE ABRASION ARTHRP/TRANSPORTATION COORDINATOR DRLG/MICROFX BACK SURGERY PROCEDURE: HISTORICAL BACK SURGERY; COMMENT: lower back ? 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 ([facility] V24, [facility] V28) DX:Opioid depend w opioid-in maxime psychotic disorder w delusions ([facility]) Back pain DX:Back pain Cramps of lower extremity DX:Plastic Parts Fabricator mps of lower extremity Gastric bypass status for obesity DX:Gastric bypass status for obesity Knee pain DX:Knee pain Back pain DX:Back pain Systolic murmur DX:Systolic murm ur Seizure disorder ([facility] V2 4, [facility] V28) DX:Seizure disorder ([facility]) Bilateral hearing loss DX:Bilate ral hearing loss Bronchitis DX:Bronchitis Migraine DX:Migraine Scalp psoriasis DX:Scalp psorias is Bipolar 1 disorder (CMS/[facility] V24, [facility]/HCC V28) DX:Bipolar 1 disorder (HCC) Family [...] Last Done Comments Breast Cancer Screening 1973 Colorectal Cancer Screening: Colonoscopy 1973 DTaP,Tdap,and Td Vaccines (1 - Tdap) 1992 Hepatitis B Vaccines (1 of 3 - 19+ 3-dose series) 1992 HIV Screening 10/09/2022 Hepatitis C Screening 10/09/2022 Social Influencers of Health Screening 10/09/2022 Cervical Cancer Screening: P ap Smear 03/19/2023 03/19/2020 Pneumococcal Vaccine: 50+ Ye ars (1 of 1 - PCV) 2023 Zoster Vaccines (1 of 2) 2023 Depression Screening 11/06/2024 COVID-19 Vaccine ( - 2023-2 5 season) 2025 Influenza Vaccine (#1) 2025 RSV Immunization Adult Patie nts (1 - 1-dose 75+ series) 2048 HIB Vaccines Aged Out No longer eligi [...] RESULTING AGENCY - 03/27/2020 12:15 PM EDT [id number] THINPREP PAP, IMAGED: NEGATIVE FOR SQUAMOUS INTRAEPITHELIAL [...] Recently Relevant to Health Maintenance Care Teams Leaf Blender Relationship Specialty Start Date End Date Kyra Driscoll MD [address] [phone] PCP - General Internal Medicine 08/13/21
--- OUTSIDE RECORDS SUMMARY | 2025-08-27 12:04 | XMS_ITS | Encounter Summary ---
Author Organization [facility] Address [address] [facility] [address] [place] [address] Phone Care Team Providers Care Die Reamer Name Role Phone Nohemi Nunez Primary Care Provider [phone] Encounter Details Date Type Department Care Team (Late st Contact Info) Description 01/16/2019 Ancillary Orders [facility] [address] [place] [address] Zora Hughes PA [address] [place] [address] [email or web address] Social History Tobacco Use Types Packs/Day Years [...] of this encounter Results * Holter Monitor 48 Hours (01/16/2019 11:59 AM EDT) Anatomical Region Laterality Modality Heart Other Narrative 01/16/2019 1:18 PM EDT Holter monitor of good quality recorded for 48 hours. Baseline rhythm is sinus with an average heart rate of 69 and a range of 32 to a maximum of 135. There is rare supraventricular and ventricular ectopy with a single 3 beat atrial run. Remaining ectopic beats are all isolated. No high-grade dysrhythmia. Diary is submitted and there are 12 patient activations including chest pain fainting dizziness shortness of breath and palpitations. All occurred during sinus rhythm without ectopy. Impression: Normal 48-hour Holter monitor. Patient symptoms occurred during sinus rhythm without ectopy. Procedure Note Wilfred Burrell MD - 01/16/2019 Holter monitor of good quality recorded for 48 hours. Baseline rhythm issinus with an average heart rate of 69 and a range of 32 to a maximum of135. There is rare supraventricular and ventricular ectopy with a single3 beat atrial run. Remaining ectopic beats are all isolated. Nohigh-grade dysrhythmia. Diary is submitted and there are 12 patientactivations including chest pain fainting dizziness shortness of breathand palpitations. All occurred during sinus rhythm without ectopy. Impression: Normal 48-hour Holter monitor. Patient symptoms occurredduring sinus rhythm without ectopy. [facility]ora [facility] ORDER[facility] BLES Final Result documented in this encounter Visit Diagnoses Diagnosis Palpitations Palpitations documented in this encounter Care Teams Die Reamer Relationship Specialty Start Date End Date Nohemi Nunez DO [address] [place] [address] PCP - General 11/09/17 documented as of this encounter Additional Source Comments The information contained in this document represents components of the legal health record. It is not the complete legal health record.[facility]
--- OUTSIDE RECORDS SUMMARY | 2025-08-27 12:04 | XMS_ITS | Encounter Summary ---
Author Organization [facility] Address [address] [facility] [address] [place] [address] Phone Care Team Providers Care Sap Business Intelligence Consultant Name Role Phone Nohemi Nunez DO Primary Care Provider Encounter Details Date Type Department Care Team (Late st Contact Info) Description 01/15/2018 Ancillary Orders [facility] [address] [place] [address] [place], [place] [id number] Kyle Lundberg DO [address] [place] [address] Tachycardia Social History Tobacco Use Types Packs/Day [...] tachycardia documented in this encounter Care Teams Sap Business Intelligence Consultant Relationship Specialty Start Date End Date Nohemi Nunez DO [address] [place] [address] PCP - General 11/09/17 documented as of this encounter Additional Source Comments The information contained in this document represents components of the legal health record. It is not the complete legal health record.[facility]
[2025-08-27 12:31] LABS: Alanine Aminotransferase 14 U/L (0-31); Albumin Level 4.6 g/dL (3.5-5.0); Alkaline Phosphatase 132 U/L (39-117); Anion Gap 11 (12-20); Aspartate Amino Transferase 37 U/L (5-31); Blood Urea Nitrogen 11 mg/dL (9-16); Calcium 9.0 mg/dL (8.4-10.2); Carbon Dioxide 28 mmol/L (22-29); Chloride 108 mmol/L (96-108); Estimated Glomerular Filt Rate > 60; Potassium 3.5 mmol/L (3.3-5.1); Sodium 143 mmol/L (135-145); Total Protein 7.8 g/dL (6.5-8.0)
== END 2025-08-27 10:00 | disposition home or self-care (01) ==
LOC: HO.HHCL 09:59
PROVIDERS: PCP Internal Medicine; Visit Provider Nurse Practitioner Family
DX: R73.03 Prediabetes (principal)
CPT/HCPCS: 36415; 80053; 83036

== ENCOUNTER 2025-09-01 13:51 | Outpatient (AMB) | payer MEDICARE, MEDICAID, SELFPAY ==
[2025-09-01 13:57] VITALS: BP 124/68; PULSE 84; BMI 32.4
--- NOTE | 2025-09-01 13:57 | MHC.OFFVIS ---
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 rosario Enrollment Consultant Required: Yes Enrollment Consultant Services: Enrollment Consultant Offered & Declined Allergies latex (LATEX) Allergy (Intermediate, Verified 03/03/25 16:55) RASH ENVIROMENTAL Allergy (Intermediate, Uncoded 03/03/25 16:55) HAYFEVER Food Allergy Formula Allergy (Unknown, Uncoded 03/03/25 16:55) Anaphylaxis Onions Allergy (Unknown, Uncoded 03/03/25 16:55) Anaphylaxis seasonal allergies Allergy (Unknown, Uncoded 03/03/25 16:55) Difficulty Breathing shellfish Allergy (Unknown, Uncoded 03/03/25 16:55) Anaphylaxis Medication List - Last Reconciled 09/01/25 by Paul Rosario MD albuterol sulfate 1 amp inhalation Q6H PRN albuterol sulfate 90 mcg/actuation 2 puffs inhalation Q4-6H PRN alcohol swabs (Alcohol Prep Pads) 1 pad topical DIRECTED ascorbic acid (vitamin C) (Vitamin C) 1 tab PO TID blood-glucose meter As directed Breo Ellipta 200-25 mcg/dose (fluticasone furoate-vilanterol) 1 ea inhalation DAILY NS buprenorphine-naloxone 8-2 mg (Suboxone) 2 film sublingual DAILY buspirone 15 mg PO BID cyanocobalamin (vitamin B-12) 1,000 mcg PO DAILY diphenhydramine HCl (Colleen-Dryl) 0 mg PO docusate sodium 100 mg PO DAILY Enbrel SureClick (etanercept) 50 mg subcut QWEEK NS epinephrine IM DIRECTED fexofenadine (Allergy Relief (fexofenadine)) 180 mg PO DAILY flash glucose scanning reader (FreeStyle Cindy 2 Rutherford) As directed flash glucose scanning reader (FreeStyle Cindy 2 Rutherford) As directed flash glucose sensor (FreeStyle Cindy 2 Sensor kit) As directed flash glucose sensor (FreeStyle Cindy 2 Sensor kit) Once every 14 days fluticasone propionate 50 mcg/actuation 1 spray intranasal DAILY glucose 4 grams PO DIRECTED ketotifen fumarate 0.025%(0.035%) 1 drp ophthalmic (eye) BID lancets As directed meclizine mg PO PRN montelukast 10 mg PO QPM vcekuhlnuryu-aou-vrpg-FA-vit K 18 mg iron-600 mcg-40 mcg (Multi For Her) 1 tab-cap PO BID ondansetron 4 mg PO Q12H oxcarbazepine 600 mg PO BID tizanidine 4 mg PO TID PRN HPI Comments Details: The patient is a 50-year-old female presenting with dizziness, chest pain, and shortness of breath. The dizziness has been a recurring issue, although it has subsided at times. The patient reports experiencing chest pain that occurs both at rest and during activity, described as a feeling of tightness or pressure. The chest pain is sometimes accompanied by shortness of breath, particularly when walking or engaging in physical activity. She has a history of morbid obesity with weight as much as 400 lb but currently at 200 lb. The patient is being evaluated for sleep apnea, as she reports breathing difficulties that cause discomfort. [facility] Medical History Hypoglycemia Panniculitis Nausea Cellulitis Postoperative nausea and vomiting Migraine History of irregular heartbeat History of opioid abuse History of schizophrenia History of bipolar disorder History of seizures Sprain of ankle, right Obstructive sleep apnea Elevated cortisol level Hypoglycemia Epigastric abdominal pain Asthma Anemia Fibromyalgia Depression Hypertension Kidney calculi Carpal tunnel syndrome on both sides Surgical History S/P panniculectomy S/P thighplasty S/P brachioplasty History of back surgery History of endometrial ablation History of blepharoplasty H/O esophagogastroduodenoscopy H/O colonoscopy H/O section History of knee surgery H/O tubal ligation H/O hemorrhoidectomy H/O abdominoplasty History of bilateral breast reduction surgery H/O gastric bypass Family History Father Diabetes HTN (hypertension) Cancer Heart disease Mother Cancer Diabetes HTN (hypertension) Social History Household Members: Children Household Members Other:: daughter Are you a primary child care attendant school to a significant other at home: No Do you presently have visiting nurse or other home services: Yes ([employer]) Alcohol intake: never Patient Tobacco Use Status: Never used Tobacco Substance Use Type: Marijuana service: No Current occupational status: retired 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 Review of Systems Const Denies weakness ENT Reports dizziness Card Denies chest pain, Denies chest pain with activity, Denies syncope, Denies rapid heart rate, Denies pedal edema, Denies edema, Denies leg edema, Denies lightheadedness, Reports palpitations, Reports dyspnea, Reports dyspnea on exertion and Denies orthopnea Resp Denies cough, Reports dyspnea and Reports dyspnea on exertion GI Denies hematochezia and Denies change in stool character Musc Denies abnormal gait, Denies muscle cramps, Denies muscle weakness, Denies numbness, Denies radiating pain into limb and Denies tingling Neuro Denies abnormal gait, Reports dizziness, Denies syncope, Denies numbness, Denies tingling and Denies weakness Endo Reports palpitations Physical Exam Vital Signs: Last Vital Signs Pulse 84 09/01/25 13:57 BP 124/68 09/01/25 13:57 BMI result Body Mass Index 32.4 Const General: comfortable and no acute distress Orientation/consciousness: patient oriented x3 HEENT Other: Unremarkable Head: Yes normal to inspection Neck Neck: Yes normal visual inspection Chest Chest palpation & inspection: normal inspection of the chest Resp Auscultation: clear to auscultation bilaterally Cardio Palpation: normal PMI Heart sounds: S1 normal heart sound present, S2 normal heart sound present, no gallops, no murmurs and no rubs GI Palpation (GI): Soft to palpation Back/Spine/Pelvis Other: unremarkable Skin General skin exam: no rashes or lesions noted Neuro General: patient oriented x3 Extrem General: Yes normal to inspection Psych Mental Status: mental status grossly normal Assessment & Plan Assessment & Plan (1) Precordial chest pain: Code(s): R07.2 - Precordial pain Category: Medical (2) SOB (shortness of breath) on exertion: Code(s): R06.02 - Shortness of breath Category: Medical Plan In the EKG, underlying rhythm is sinus at 84/Min; incomplete right bundle-branch block pattern; normal NC and corrected QT. The right bundle-branch block pattern goes more than 10 years. Somewhat atypical sounding symptoms but with morbid obesity history. Coronary CTA is a reasonable test for her, but there are numerous listed allergies and hence we can start with an echocardiogram/stress test. Based on the findings, we will plan further care. Orders: Orders NM cardiolite stress test Today R07.2 - Precordial pain CA lexiscan stress w santiago Today I20.9 - Angina pectoris, unspecified, R07.2 - Precordial pain CA echo transthoracic complete Today R06.02 - Shortness of breath Coding Level of Care Code New Pt Level 4 (67131) Complex EM visit Add On G2211 Diagnoses Precordial chest pain R07.2 SOB (shortness of breath) on exertion R06.02
--- OUTSIDE RECORDS SUMMARY | 2025-09-01 17:30 | XMS_ITS | Encounter Summary ---
Author Organization [facility] Address [address] [facility] [address] [place] [address] Phone Care Team Providers Care Uptwist Spinner Name Role Phone Nohemi Nunez DO Primary Care Provider Encounter Details Date Type Department Care Team (Late st Contact Info) Description 01/15/2018 Ancillary Orders [facility] [address] [place] [address] [place], [place] [phone] Kyle Lundberg DO [address] [place] [address] Tachycardia Social History Tobacco Use Types Packs/Day [...] tachycardia documented in this encounter Care Teams Uptwist Spinner Relationship Specialty Start Date End Date Nohemi Nunez DO [address] [place] [address] PCP - General 11/09/17 documented as of this encounter Additional Source Comments The information contained in this document represents components of the legal health record. It is not the complete legal health record.[facility]
--- OUTSIDE RECORDS SUMMARY | 2025-09-01 17:30 | XMS_ITS | Encounter Summary ---
Author Organization [facility] Address [address] [facility] [address] [place] [address] Phone Care Team Providers Care National Van Truck Driver Name Role Phone Nohemi Nunez Primary Care Provider [phone] Encounter Details Date Type Department Care Team (Late st Contact Info) Description 01/16/2019 Ancillary Orders [facility] [address] [place] [address] Zora Hughes PA [address] [place] [address] [email or web address] Social History Tobacco Use Types Packs/Day [...] Palpitations documented in this encounter Care Teams National Van Truck Driver Relationship Specialty Start Date End Date Nohemi Nunez DO [address] [place] [address] PCP - General 11/09/17 documented as of this encounter Additional Source Comments The information contained in this document represents components of the legal health record. It is not the complete legal health record.[facility]
--- OUTSIDE RECORDS SUMMARY | 2025-09-01 17:30 | XMS_ITS | Clinical Summary ---
[facility] Address [address] [place] [address] Care Team Providers Care Pelletizer Operator Name Role Phone Kyra Driscoll MD Primary Care Provide r Surgical History Surgery Date Site/Laterality Comments TUBAL LIGATION 2006 Bilateral PROCEDURE: HISTORICAL TUBAL LIGATION OTHER SURGICAL HISTORY 2006 PROCEDURE: PA HYSTEROSCOPY ENDOMETRIAL ABLATION GASTRIC BYPASS 2003 PROCEDURE: GASTRIC BYPASS FOR OBESIT; COMMENT: revision 2019 BREAST REDUCTION 2002 PROCEDURE: PA BREAST REDUCTION OTHER SURGICAL HISTORY 2009 PROCEDURE: ---- HEMORRHOIDS ---- CARPAL TUNNEL RELEASE 2010 PROCEDURE: PA NEUROPLASTY &/TRANSPOS MEDIAN NRV CARPAL TUNNE KNEE ARTHROPLASTY Right PROCEDURE: PA ARTHRS KNEE ABRASION ARTHRP/FOUNTAIN MANAGER DRLG/MICROFX BACK SURGERY PROCEDURE: HISTORICAL BACK SURGERY; COMMENT: lower back ? 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 ([facility] V24, [facility] V28) DX:Opioid depend w opioid-in maxime psychotic disorder w delusions ([facility]) Back pain DX:Back pain Cramps of lower extremity DX:Ash Conveyor Operator mps of lower extremity Gastric bypass status for obesity DX:Gastric bypass status for obesity Knee pain DX:Knee pain Back pain DX:Back pain Systolic murmur DX:Systolic murm ur Seizure disorder ([facility] V2 4, [facility] V28) DX:Seizure disorder ([facility]) Bilateral hearing loss DX:Bilate ral hearing loss Bronchitis DX:Bronchitis Migraine DX:Migraine Scalp psoriasis DX:Scalp psorias is Bipolar 1 disorder (CMS/[facility] V24, [facility]/HCC V28) DX:Bipolar 1 disorder (HCC) Family History [...] RESULTING AGENCY - 03/27/2020 12:15 PM EDT [id number] THINPREP PAP, IMAGED: NEGATIVE FOR SQUAMOUS INTRAEPITHELIAL [...] Recently Relevant to Health Maintenance Care Teams Pelletizer Operator Relationship Specialty Start Date End Date Kyra Driscoll MD [address] [id number] PCP - General Internal Medicine 08/13/21
--- OUTSIDE RECORDS SUMMARY | 2025-09-01 17:30 | XMS_ITS | Clinical Summary ---
Author Organization [facility] Address [address] [facility] [address] [place] [address] Phone Care Team Providers Care Weasand Trimmer Name Role Phone Mayra Nohemi Primary Care [...] file Insurance MEDICARE PART A & B [facility] MEDICARE PART A & B [facility] MEDICARE PART A & B Member Subscriber Plan / Payer ( fective 2017-Present) Name:Christie Ortiz Member ID:[id number] Relation to Subscriber:Self Name:Christie Ortiz Subscriber ID:[id number] Payer ID:[id number] Group ID:Not on file Type:Medicare Address: [employer] [address] [place] [phone] [place] [facility] [place] B Member Subscriber Plan / Payer ( fective 2017-Present) Name:Christie Ortiz Member ID:[id number] Relation to Subscriber:Self Name:Christie Ortiz Subscriber ID:[id number] Payer ID:[id number] Group ID:Not on file Type:Medicare Address: [employer] [address] [place] [phone] [place] [facility] Care Teams Weasand Trimmer Relationship Specialty Start Date End Date Nohemi Nunez DO [address] [place] [address] PCP - General 11/09/17 Additional Source Comments The information contained in this document represents components of the legal health record. It is not the complete legal health record.[facility]
== END 2025-09-01 14:40 | disposition home or self-care (01) ==
LOC: HO.HCS 13:51
PROVIDERS: PCP Internal Medicine; Visit Provider Internal Medicine
DX: R07.2 Precordial pain (principal); R06.02 Shortness of breath
CPT/HCPCS: 99204; G2211

== ENCOUNTER → 2025-09-01 13:51 | Outpatient (BNVA) | payer MEDICARE, MEDICAID, SELFPAY | PROVIDERS: PCP Internal Medicine; Visit Provider Internal Medicine | DX: R07.2 Precordial pain (principal); R06.02 Shortness of breath; R42 Dizziness and giddiness | CPT/HCPCS: 99202 ==

== ENCOUNTER 2025-09-05 13:10 | Outpatient (AMB) | payer MEDICARE, MEDICAID, SELFPAY ==
--- NOTE | 2025-09-05 13:42 | MHC.OFFVIS ---
Vital Signs 09/05/25 13:44 Height 5 ft 6 in Weight 206 lb 9.17 oz BMI 33.3 BP 132/78 Blood Pressure Location Lt brachial Position Sitting Pulse 80 Pulse Source Pulse Oximeter Pulse Oximetry (%) 98 Oxygen Delivery Method Room Air Intake Visit Reasons: RA Intake Note: Patient presents for RA follow up today. Patient is requesting Rheumatology refills today. Interventional Physician Required: No Accompanied by: Self / Same As Patient Allergies latex (LATEX) Allergy (Intermediate, Verified 09/05/25 13:48) RASH ENVIROMENTAL Allergy (Intermediate, Uncoded 09/05/25 13:48) HAYFEVER Food Allergy Formula Allergy (Unknown, Uncoded 09/05/25 13:48) Anaphylaxis Onions Allergy (Unknown, Uncoded 09/05/25 13:48) Anaphylaxis seasonal allergies Allergy (Unknown, Uncoded 09/05/25 13:48) Difficulty Breathing shellfish Allergy (Unknown, Uncoded 09/05/25 13:48) Anaphylaxis Medication List - Last Reconciled 09/05/25 by Tamar Sanchez MD albuterol sulfate 1 amp inhalation Q6H PRN albuterol sulfate 90 mcg/actuation 2 puffs inhalation Q4-6H PRN alcohol swabs (Alcohol Prep Pads) 1 pad topical DIRECTED ascorbic acid (vitamin C) (Vitamin C) 1 tab PO TID Breo Ellipta 200-25 mcg/dose (fluticasone furoate-vilanterol) 1 ea inhalation DAILY NS buprenorphine-naloxone 8-2 mg (Suboxone) 2 film sublingual DAILY buspirone 15 mg PO BID cyanocobalamin (vitamin B-12) 1,000 mcg PO DAILY diphenhydramine HCl (Colleen-Dryl) 0 mg PO docusate sodium 100 mg PO DAILY epinephrine IM DIRECTED fexofenadine (Allergy Relief (fexofenadine)) 180 mg PO DAILY fluticasone propionate 50 mcg/actuation 1 spray intranasal DAILY folic acid 1 mg PO DAILY gabapentin 800 mg PO TID glucose 4 grams PO DIRECTED ketotifen fumarate 0.025%(0.035%) 1 drp ophthalmic (eye) BID lancets As directed meclizine mg PO PRN methotrexate sodium 15 mg (6 x 2.5 mg) PO QWEEK 90 days montelukast 10 mg PO QPM doxdzoxceepq-top-zhde-FA-vit K 18 mg iron-600 mcg-40 mcg (Multi For Her) 1 tab-cap PO BID ondansetron 4 mg PO Q12H oxcarbazepine 600 mg PO BID tizanidine 2 mg PO TID PRN HPI Comments Details: Patient is a 50-year-old female with depression, schizophrenia, bipolar disorder, hypertension, MEL, seropositive rheumatoid arthritis and fibromyalgia here today for follow up Interval History: Patient last seen 03/09/[address] Restrepo - On Rasuvo 25mg weekly, folic acid and Hydroxychloroquine 200mg daily - Patient has been on Rasuvo since November of 2022. She also takes hydroxychloroquine 1 tab daily. Patient continues to have diffuse body pain especially in her hands, fingers, the outside of both hips. She stated that the steroid injection for her hips helped her for 3 or 4 weeks then the pain came back. She gained 6 lb after that injection that she attributes to the steroid injection. It mentions that gabapentin provides some relief of her generalized fibromyalgia pain. - Had synovitis on exam - Enbrel added Today - Not on any DMARDs - Moved to [place] and could not get an appointment with rheumatology - Has been off medication for about 1 year - Since stopping her medication she has noticed worsening of her joint pain and stiffness - Davidson the Enbrel was helping with 70% of her pain Rheumatologic History: +RF+NARCISO -ve CCP Plaquenil 02/2018. Methotrexate added 12/2018. Stopped sometime in 2021 MTX Restarted 11/28 Current Rheumatology Medication(s): [facility] Medical History Hypoglycemia Panniculitis Nausea Cellulitis Postoperative nausea and vomiting Migraine History of irregular heartbeat History of opioid abuse History of schizophrenia History of bipolar disorder History of seizures Sprain of ankle, right Obstructive sleep apnea Elevated cortisol level Hypoglycemia Epigastric abdominal pain Asthma Anemia Fibromyalgia Depression Hypertension Kidney calculi Carpal tunnel syndrome on both sides Surgical History S/P panniculectomy S/P thighplasty S/P brachioplasty History of back surgery History of endometrial ablation History of blepharoplasty H/O esophagogastroduodenoscopy H/O colonoscopy H/O section History of knee surgery H/O tubal ligation H/O hemorrhoidectomy H/O abdominoplasty History of bilateral breast reduction surgery H/O gastric bypass Family History Father Diabetes HTN (hypertension) Cancer Heart disease Mother Cancer Diabetes HTN (hypertension) Social History Household Members: Children Household Members Other:: daughter Are you a primary foster care social worker to a significant other at home: No Do you presently have visiting nurse or other home services: Yes ([employer]) Alcohol intake: never Patient Tobacco Use Status: Never used Tobacco Substance Use Type: Marijuana service: No Current occupational status: retired Current occupation: [employer] Review of Systems Narrative Review of Systems Constitutional: Denies fever, chills, weight loss ENT: Denies vision changes, eye pain or eye redness, dental caries, dry mouth GI: Denies nausea, vomiting, diarrhea, abdominal pain, change in BM Pulm: Denies SOB, CORONA, hemoptysis, wheezing Cards: Denies chest pain, palpitations Skin: Denies Raynaud's, rash, nail changes, photosensitivity, BANDER HAND: Denies headaches, weakness, paresthesias, recurrent falls MSK: as per HPI All other systems reviewed and are unremarkable except noted above Physical Exam Exam Exam: Vital signs reviewed Physical Examination CONSTITUITIONAL Patient alert and cooperative. Well appearing and in no apparent painful distress MSK Hands Right Hand: Able to make a fist. No swelling but TTP of the MCPs, PIPs and DIPs Left Hand: Able to make a fist. No swelling but TTP of the MCPs, PIPs and DIPs Herbedens nodes noted bilaterally Wrists Right Wrist: Full ROM to flexion and extension. No swelling but TTP Left Wrist: Full ROM to flexion and extension. No swelling but TTP Elbows Right Elbow: Full ROM. No swelling or TTP. No TTP of the medial epicondyle. No TTP of the lateral epicondyle Left Elbow: Full ROM. No swelling or TTP. No TTP of the medial epicondyle. No TTP of the lateral epicondyle Shoulders Right shoulder: No swelling noted. No TTP of the AC joint. No TTP of the subacromial bursa. No TTP of the posterior shoulder Left shoulder: No swelling noted. No TTP of the AC joint. No TTP of the subacromial bursa. No TTP of the posterior shoulder Decreased ROM bilaterally 2/2 pain in the neck and tight trapezius Hip bursa: Tenderness to palpation bilaterally Knees Right knee: In brace. No swelling noted. TTP of the knee joint line. TTP of pes anserine bursa Left knee: Decreased ROM. No swelling noted. TTP of the knee joint line. TTP of pes anserine bursa. Crepitations felt bilaterally Ankles Right ankle: Good ankle dorsiflexion and plantar flexion. No swelling. No TTP of the ankle joint Left ankle: Good ankle dorsiflexion and plantar flexion. No swelling. No TTP of the ankle joint Feet Right foot: Negative squeeze test Left foot: Negative squeeze test Tender points? Tenderness to palpation of the bilateral trapezius, supraspinatus, anterior costochondral junctions, bilateral suboccipital muscle insertions SKIN No rashes Vital Signs: Last Vital Signs Pulse 80 09/05/25 13:44 BP 132/78 09/05/25 13:44 Pulse Ox 98 09/05/25 13:44 Oxygen Delivery Method Room Air 09/05/25 13:44 BMI result Body Mass Index 33.3 Results Reviewed Results Reviewed: Laboratory Tests 03/01/23 03/04/25 08/27/25 12:22 10:16 10:10 WBC 5.2 RBC 4.27 Hgb 12.7 Hct 39.5 Plt Count 199 ESR 18 Sodium 143 Potassium 3.5 Chloride 108 Carbon Dioxide 28 BUN 11 Creatinine 0.69 AST 37 H ALT 14 Laboratory Tests 11/15/18 09:35 Rheumatoid Factor 46.8 H Cycl Citrul Peptide IgG <16 Assessment & Plan Assessment & Plan (1) Seropositive rheumatoid arthritis: Comment: +RF+NARCISO -ve CCP Plaquenil 02/2018. Methotrexate added 12/2018. Stopped sometime in 2021 MTX Restarted 11/28 Code(s): M05.9 - Rheumatoid arthritis with rheumatoid factor, unspecified Category: Medical Plan: #RA Patient is a 50-year-old female with seropositive rheumatoid arthritis here today to reestablish care. Patient not on any DMARD due to leaving the state to move to [place] and not finding a telephone ad taker there. Her exam shows tenderness to palpation of several joints indicating RA activity. We will start patient back gradually with methotrexate 15 mg weekly. We will also get updated x-rays involving her hands, neck, knees and hips. Plan - Methotrexate 15mg PO weekly - Folic acid 1mg - XRs: hands, knees, C spine, L spine, SI joint, hips - Labs: CBC, CMP, ESR, CRP, Hepatitis panel and T spot, RF, CCP - RTC 3 months - Labs before visit: CBC, CMP, ESR, CRP (2) Fibromyalgia: Code(s): M79.7 - Fibromyalgia Category: Medical Plan: #Fibromylagia Patient's disease course is complicated by fibromyalgia. Currently on maximum dose gabapentin and tizanidine as well as antidepressants. Discussed with the patient that unfortunately fibromyalgia is not a disease that can be treated in totality and all the current medications on the market simply reduce the pain by a small amount. The real treatment for fibromyalgia is continue daily stretching and activity (3) Polyarticular osteoarthritis: Code(s): M15.9 - Polyosteoarthritis, unspecified Plan: #Polyarticular OA Patient's disease is also complicated by polyarticular osteoarthritis. We will 1st try to treat her rheumatoid arthritis symptoms and then we will consider other modalities for treating her osteoarthritis (4) Encounter for methotrexate monitoring: Code(s): Z51.81 - Encounter for therapeutic drug level monitoring; Z79.631 - long-term (current) use of antimetabolite agent Plan: #Long-term Current Use of Methotrexate Discussed with patient the benefits and risks of methotrexate for managing their rheumatic condition Benefits include reduced pain, reduced mortality, maintenance of remission and reduction of flares Risks include oral ulcers, photosensitivity, hepatotoxicity, hematologic toxicity, pneumonitis, flu-like symptoms (especially day after administration), nodulosis, lymphomas ? Limit alcohol and avoid Bactrim ? Monitoring: CBC, BMP, LFTs every 3-4 months and hepatitis serologies as needed ? Methotrexate is teratogenic. If planning need to discontinue 3 months prior to conception Plan This is my 1st visit with the patient. I spent 45 minutes reviewing the record and labs, taking a history, examining the patient, discussing the treatment plan, counseling patient, ordering diagnostic work up and documenting in the medical record Orders: Orders C Reactive Protein Today M05.9 - Rheumatoid arthritis with rheumatoid factor, unspecified, Z79.899 - Other telecommunications network planner (current) drug therapy T Spot TB Today M05.9 - Rheumatoid arthritis with rheumatoid factor, unspecified, Z79.899 - Other telecommunications network planner (current) drug therapy Rheumatoid Factor Today M05.9 - Rheumatoid arthritis with rheumatoid factor, unspecified Cyclic Citrullinated Peptide Today M05.9 - Rheumatoid arthritis with rheumatoid factor, unspecified XR Hand Bilat min 3v Today M05.9 - Rheumatoid arthritis with rheumatoid factor, unspecified XR wrist LT min 3V Today M05.9 - Rheumatoid arthritis with rheumatoid factor, unspecified Complete Blood Count Auto Diff Today M05.9 - Rheumatoid arthritis with rheumatoid factor, unspecified, Z79.899 - Other telecommunications network planner (current) drug therapy Comprehensive Met. Panel Today M05.9 - Rheumatoid arthritis with rheumatoid factor, unspecified, Z79.899 - Other custodial (current) drug therapy Erythrocyte Sedimentation Rate Today M05.9 - Rheumatoid arthritis with rheumatoid factor, unspecified, Z79.899 - Other custodial (current) drug therapy Hepatitis B,C Profile Today M05.9 - Rheumatoid arthritis with rheumatoid factor, unspecified, Z79.899 - Other telecommunications network planner (current) drug therapy XR lumbar spine 4V min Today M05.9 - Rheumatoid arthritis with rheumatoid factor, unspecified XR sacroiliac joint min 3V Today M05.9 - Rheumatoid arthritis with rheumatoid factor, unspecified XR cervical spine w flex/ext Today M05.9 - Rheumatoid arthritis with rheumatoid factor, unspecified XR knee RT 3V Today M05.9 - Rheumatoid arthritis with rheumatoid factor, unspecified XR knee LT 3V Today M05.9 - Rheumatoid arthritis with rheumatoid factor, unspecified XR wrist RT min 3V Today M05.9 - Rheumatoid arthritis with rheumatoid factor, unspecified XR hip LT min 2V Today M05.9 - Rheumatoid arthritis with rheumatoid factor, unspecified XR hip RT min 2V Today M05.9 - Rheumatoid arthritis with rheumatoid factor, unspecified Medications: New methotrexate sodium 15 mg (6 x 2.5 mg) PO QWEEK 78 tabs 1RF 90 days M05.9 - Rheumatoid arthritis with rheumatoid factor, unspecified folic acid 1 mg PO DAILY 90 tabs 1RF M05.9 - Rheumatoid arthritis with rheumatoid factor, unspecified Discontinued flash glucose sensor (FreeStyle Cindy 2 Sensor kit) Discontinued Reason: Doctor's Order As directed 1 ea 0RF E16.2 - Hypoglycemia, unspecified flash glucose scanning reader (FreeStyle Cindy 2 Amidon) Discontinued Reason: Patient Completed Course As directed 1 ea 0RF E16.2 - Hypoglycemia, unspecified blood-glucose meter Discontinued Reason: Patient Completed Course As directed 1 ea 0RF diabetes mellitus flash glucose sensor (FreeStyle Cindy 2 Sensor kit) Discontinued Reason: Patient Completed Course Once every 14 days 2 ea 11RF E16.2 - Hypoglycemia, unspecified, E55.9 - Vitamin D deficiency, unspecified flash glucose scanning reader (FreeStyle Cindy 2 Amidon) Discontinued Reason: Patient Completed Course As directed 1 ea 0RF E16.2 - Hypoglycemia, unspecified tizanidine Discontinued Reason: Patient Completed Course 4 mg PO TID PRN 90 tabs 2RF for muscle spasm Enbrel SureClick (etanercept) Discontinued Reason: Doctor's Order 50 mg subcut QWEEK 4 mL 2RF NS Coding Level of Care Code Est Pt Level 5 (36023) Complex EM visit Add On G2211 Diagnoses Seropositive rheumatoid arthritis M05.9 Fibromyalgia M79.7 Polyarticular osteoarthritis M15.9 Encounter for methotrexate monitoring Z51.81; Z79.631
[2025-09-05 13:44] VITALS: BP 132/78; PULSE 80; O2SAT 98; BMI 33.3
--- OUTSIDE RECORDS SUMMARY | 2025-09-05 14:18 | XMS_ITS | Encounter Summary ---
Author Organization [employer] Address [address] [place] [address] 7t [place] [address] Care Team Providers Care Sheet Finisher Name Role Phone Kyra Driscoll MD Primary Care Provide r Elizabeth Dean NP Primary Care Provider [phone] Reason for Visit * Reason Comments Med Refill Encounter Details Date Type Department Care Team (Late st Contact Info) Description 05/23/2023 Refill [facility] [address] [place], [place] [phone] Nurys Mcdonnell MD [address] [place], [place] [phone] COPD (chronic obstructive pulmonary disease) with chronic bronchitis ([facility]/HCC) Social History Tobacco Use Types Packs/Day [...] Department Care Team (Late Contact Info) Description 09/09/2025 2:00 PM EST Medication Management [facility] [address] [place], [place] [phone] Juni Haji, HennyD [address] [place], [place] [phone] 09/16/2025 10:30 AM EST Office Visit [facility] [address] [place] [address] Porfirio Saldivar MD [address] [place] [phone] 11/04/2025 1:45 PM EST Office Visit [facility] [address] [place] [phone] Elizabeth Dean NP [address] [place] [address] documented as of this encounter Visit Diagnoses Diagnosis COPD (chronic obstructive pulmonary disease) with chronic bronchitis (CMS/HCC) (HCC) documented in this encounter Care Teams Sheet Finisher Relationship Specialty Start Date End Date Kyra Driscoll MD [address] [place] [phone] PCP - General Family Medicine 06/03/19 03/03/24 Elizabeth Dean NP [address] [place] [address] [phone] PCP - General Family Medicine 02/25/25 documented as of this encounter
--- OUTSIDE RECORDS SUMMARY | 2025-09-05 14:18 | XMS_ITS | Encounter Summary ---
Author Organization [employer] Address [address] [facility] 7t [place] [address] Care Team Providers Care Scouring Machine Tender Name Role Phone Kyra Driscoll MD Primary Care Provide r Elizabeth Dean NP Primary Care Provider [phone] Reason for Visit * Reason Comments Med Refill Encounter Details Date Type Department Care Team ([facility] Contact Info) Description 04/24/2023 Refill [facility] [address] [place], [place] [phone] Kyra Driscoll MD [address] [place], [place] [phone] Allergy, subsequent encounter Social History Tobacco Use [...] Care Team ([facility] Contact Info) Description 09/09/2025 2:00 PM EST Medication Management [address] [address] Juni Haji, eHnnyD [address] [place] [address] 09/16/2025 10:30 AM EST Office Visit [address] [address] Porfirio Saldivar MD [address] [place] [address] 11/04/2025 1:45 PM EST Office Visit [address] [address] Elizabeth Dean NP [address] [place] [address] documented as of this encounter Visit Diagnoses Diagnosis Allergy, subsequent encounter documented in this encounter Care Teams Scouring Machine Tender Relationship Specialty Start Date End Date Kyra Driscoll MD [address] [place] [address] [phone] PCP - General Family Medicine 06/03/19 03/03/24 Elizabeth Dean NP [address] [place] [address] [phone] PCP - General Family Medicine 02/25/25 documented as of this encounter
--- OUTSIDE RECORDS SUMMARY | 2025-09-05 14:18 | XMS_ITS | Encounter Summary ---
Author Organization [employer] Address [address] [facility] 7t [place] [address] Care Team Providers Care Sectionizer Name Role Phone Kyra Driscoll MD Primary Care Provide r Elizabeth Dean NP Primary Care Provider [phone] Reason for Visit * Reason Comments Med Refill Encounter Details Date Type Department Care Team ([facility] Contact Info) Description 04/22/2023 Refill [facility] [address] [place], [place] [phone] Kyra Driscoll MD [address] [place], [place] [phone] Moderate persistent asthma without complication Social History [...] Date Type Department Care Team ([facility] Contact Info) Description 09/09/2025 2:00 PM EST Medication Management [address] [address] Juni Haji, HennyD [address] [place] [address] 09/16/2025 10:30 AM EST Office Visit [address] [address] Porfirio Saldivar MD [address] [place] [address] 11/04/2025 1:45 PM EST Office Visit [address] [address] Elizabeth Dean NP [address] [place] [address] documented as of this encounter Visit Diagnoses Diagnosis Moderate persistent asthma without complication documented in this encounter Care Teams Sectionizer Relationship Specialty Start Date End Date Kyra Driscoll MD [address] [place] [phone] PCP - General Family Medicine 06/03/19 03/03/24 Elizabeth Dean NP [address] [place] [address] [phone] PCP - General Family Medicine 02/25/25 documented as of this encounter
--- OUTSIDE RECORDS SUMMARY | 2025-09-05 14:18 | XMS_ITS | Encounter Summary ---
Author Organization [employer] Address [address] [facility] 7t [place] [address] Care Team Providers Care Correctional Treatment Specialist Name Role Phone Kyra Driscoll MD Primary Care Provide r Elizabeth Dean NP Primary Care Provider [phone] Reason for Visit * Reason Comments Med Refill Encounter Details Date Type Department Care Team ([facility] Contact Info) Description 06/07/2023 Refill [facility] [address] [place], [place] [phone] Rachel Cash FNP [address] [place], [place] [phone] Allergy, subsequent encounter Social History Tobacco Use [...] Description 09/09/2025 2:00 PM EST Medication Management [facility] [address] [place], [place] [phone] Juni Haji, PharmD [address] [place], [place] [phone] 09/16/2025 10:30 AM EST Office Visit [address] [address] Porfirio Saldivar MD [address] [place] [address] 11/04/2025 1:45 PM EST Office Visit [address] [address] Elizabeth eDan NP [address] [place] [phone] documented as of this encounter Visit Diagnoses Diagnosis Allergy, subsequent encounter documented in this encounter Care Teams Correctional Treatment Specialist Relationship Specialty Start Date End Date Kyra Driscoll MD [address] [place] [phone] PCP - General Family Medicine 06/03/19 03/03/24 Elizabeth Dean NP [address] [place] [phone] PCP - General Family Medicine 02/25/25 documented as of this encounter
--- OUTSIDE RECORDS SUMMARY | 2025-09-05 14:18 | XMS_ITS | Encounter Summary ---
Author Organization [employer] Address [address] [place] [address] 7[address] [place] [address] Care Team Providers Care Butter Maker Name Role Phone Kyra Driscoll MD Primary Care Provide r Elizabeth Dean NP Primary Care Provider [phone] Reason for Visit * Reason Comments Med Refill Encounter Details Date Type Department Care Team (Late st Contact Info) Description 06/16/2023 Refill [facility] [address] [place], [place] [phone] Kyra Driscoll MD [address] [place], [place] [phone] Other muscle spasm Social History Tobacco Use [...] Care Team (Late st Contact Info) Description 09/09/2025 2:00 PM EST Medication Management [facility] [address] [place], [place] [phone] Juni Haji, PharmD [address] [place], [place] [phone] 09/16/2025 10:30 AM EST Office Visit [address] [address] Porfirio Saldivar MD [address] [place] [address] 11/04/2025 1:45 PM EST Office Visit [address] [address] Elizabeth Dean NP [address] [place] [address] documented as of this encounter Visit Diagnoses Diagnosis Other muscle spasm documented in this encounter Care Teams Butter Maker Relationship Specialty Start Date End Date Kyra Driscoll MD [address] [place] [address] PCP - General Family Medicine 06/03/19 03/03/24 Elizabeth Dean NP [address] [place] [phone] PCP - General Family Medicine 02/25/25 documented as of this encounter
--- OUTSIDE RECORDS SUMMARY | 2025-09-05 14:18 | XMS_ITS | Encounter Summary ---
Author Organization [employer] Address [address] [facility] 7t [place] [address] Care Team Providers Care Nuclear Plant Operator Name Role Phone Kyra Driscoll MD Primary Care Provide r Elizabeth Dean NP Primary Care Provider [phone] Reason for Visit * Reason Comments Med Refill Encounter Details Date Type Department Care Team (Late st Contact Info) Description 05/23/[address] [facility] [address] [place], [place] [phone] Kyra Driscoll MD [address] [place], [place] [phone] Social History Tobacco Use Types Packs/Day Years [...] Description 09/09/2025 2:00 PM EST Medication Management [facility] 230 [place], [place] [phone] Juni Haji, PharmD [address] [place], [place] [phone] 09/16/2025 10:30 AM EST Office Visit [address] [address] Porfirio Saldivar MD [address] [place] [address] 11/04/2025 1:45 PM EST Office Visit [address] [address] Elizabeth Dean NP [address] [place] [address] documented as of this encounter Visit Diagnoses Not on filedocumented in this encounter Care Teams Nuclear Plant Operator Relationship Specialty Start Date End Date Kyra Driscoll MD [address] [place] [phone] PCP - General Family Medicine 06/03/19 03/03/24 Elizabeth Dean NP [address] [place] [phone] PCP - General Family Medicine 02/25/25 documented as of this encounter
--- OUTSIDE RECORDS SUMMARY | 2025-09-05 14:18 | XMS_ITS | Encounter Summary ---
Author Organization [employer] Address [address] [place] [address] [address] [place] [address] Care Team Providers Care Technician Anatomic Pathology Name Role Phone Kyra Driscoll MD Primary Care Provide r Elizabeth Dean NP Primary Care Provider [phone] Encounter Details Date Type Department Care Team (Late st Contact Info) Description 09/26/2022 Abstract [facility] [address] [place] [address] [phone] Kyra Driscoll MD [address] [place] [address] [phone] Social History Tobacco Use Types Packs/Day Years [...] Description 09/09/2025 2:00 PM EST Medication Management [facility] [address] [place] [address] [phone] Juni Haji, PharmD [address] [place] [address] [phone] 09/16/2025 10:30 AM EST Office Visit [facility] [address] [place] [address] Porfirio Saldivar MD [address] [place] [address] [phone] 11/04/2025 1:45 PM EST Office Visit [facility] 230 [place], [place] [phone] Elizabeth Dean NP 230 [place], [place] [phone] documented as of this encounter Visit Diagnoses Not on filedocumented in this encounter Care Teams Technician Anatomic Pathology Relationship Specialty Start Date End Date Kyra Driscoll MD [address] [place] [address] [phone] PCP - General Family Medicine 06/03/19 03/03/24 Elizabeth Dean NP [address] [place] [address] [phone] PCP - General Family Medicine 02/25/25 documented as of this encounter
--- OUTSIDE RECORDS SUMMARY | 2025-09-05 14:18 | XMS_ITS | Encounter Summary ---
Author Organization [employer] Address [address] [facility] 7t [place] [address] Care Team Providers Care Construction Foreman Name Role Phone Elizabeth Dean NP Primary Care Provider [phone] Reason for Visit * Reason Comments Med Refill Encounter Details Date Type Department Care Team ([facility] st Contact Info) Description 08/11/2025 Refill [facility]INE 230 [place], [place] [phone] Elizabeth Dean NP 230 [place], [place] [phone] Moderate persistent asthma without complication Social History Tobacco Use Types Packs/Day Years Used Date Smoking Tobacco: Never Passive Smoke Exposure: Never Smokeless Tobacco: Never Alcohol Use Standard Drinks/Week Comments Never 0 (1 standard drink = 0.6 oz pur e alcohol) Depression Answer Date Recorded Patient Health Questionnaire-9 Score 20 04/11/2025 Patient Health Questionnaire-9 Score 20 04/11/2025 Last PHQ-9: Questionnaire Data Not on file 0 04/11/2025 Housing Stability Answer Date Recorded What is [...] Answer Date Recorded Patient Health Questionnaire-2 Score 5 04/11/2025 Internet Access Answer Date Recorded Internet Access [...] Description 09/09/2025 2:00 PM EST Medication Management [facility] MED[facility]INE [address] [place] [address] Juni Haji, PharmD [address] [place] [address] 09/16/2025 10:30 AM EST Office Visit [address] [address] Porfirio Saldivar MD [address] [place] [address] 11/04/2025 1:45 PM EST Office Visit [address] [address] Elizabeth Dean NP [address] [place] [address] documented as of this encounter Visit Diagnoses Diagnosis Moderate persistent asthma without complication documented in this encounter Additional Health Concerns Assessment Noted Time PHQ-9 Depression Total Score: 20 025 7:51 AM EDT documented as of this encounter Care Teams Construction Foreman Relationship Specialty Start Date End Date Elizabeth Dean NP [address] [place] [address] PCP - General Family Medicine 02/25/25 documented as of this encounter
--- OUTSIDE RECORDS SUMMARY | 2025-09-05 14:18 | XMS_ITS | Encounter Summary ---
Author Organization [employer] Address [address] [facility] 7t [place] [address] Care Team Providers Care Pad Assembler Name Role Phone Kyra Driscoll MD Primary Care Provide r Elizabeth Dean NP Primary Care Provider [phone] Reason for Visit * Reason Comments Med Refill Encounter Details Date Type Department Care Team (Late st Contact Info) Description 06/13/2023 Refill [facility] 230 [place], [place] [phone] Porfirio Saldivar MD 230 [place], [place] [phone] Uncomplicated opioid dependence (CMS/HCC) Social History Tobacco [...] Description 09/09/2025 2:00 PM EST Medication Management [facility] 230 [place], [place] [phone] Juni Haji, PharmD 230 [place], [place] [phone] 09/16/2025 10:30 AM EST Office Visit [address] [address] Porfirio Saldivar MD [address] [place] [address] 11/04/2025 1:45 PM EST Office Visit [facility] [address] [place] [address] Elizbaeth Dean NP [address] [place] [address] documented as of this encounter Visit Diagnoses Diagnosis Uncomplicated opioid dependence (CMS/HCC) (HCC) documented in this encounter Care Teams Pad Assembler Relationship Specialty Start Date End Date Kyra Driscoll MD [address] [place] [address] [phone] PCP - General Family Medicine 06/03/19 03/03/24 Elizabeth Dean NP [address] [place] [address] [phone] PCP - General Family Medicine 02/25/25 documented as of this encounter
--- OUTSIDE RECORDS SUMMARY | 2025-09-05 14:19 | XMS_ITS | Encounter Summary ---
Author Organization [facility] Address [address] [facility] [address] [place] [address] Phone Care Team Providers Care Graphic Art Designer Name Role Phone Nohemi Nunez Primary Care Provider [phone] Encounter Details Date Type Department Care Team (Late st Contact Info) Description 01/16/2019 Ancillary Orders [facility] [address] [place] [address] Zora Hughes PA [address] [place] [address] [email or web address] Palpitations Social History Tobacco Use Types Packs/Day [...] Palpitations documented in this encounter Care Teams Graphic Art Designer Relationship Specialty Start Date End Date Nohemi Nunez DO 230 [place] [address] PCP - General 11/09/17 documented as of this encounter Additional Source Comments The information contained in this document represents components of the legal health record. It is not the complete legal health record.[facility]
--- OUTSIDE RECORDS SUMMARY | 2025-09-05 14:19 | XMS_ITS | Encounter Summary ---
Author Organization [employer] Address [address] [facility] 7t [place] [address] Care Team Providers Care Fulfillment Mail Clerk Name Role Phone Kyra Driscoll MD Primary Care Provide r Elizabeth Dean NP Primary Care Provider [phone] Reason for Visit * Reason Comments Med Refill Encounter Details Date Type Department Care Team ([facility] Contact Info) Description 02/06/2023 Refill [facility] 230 [place], [place] [phone] Rachel Cash FNP [address] [place] [address] IFG (impaired fasting glucose); Uncomplicated opioid dependence [...] Upcoming Encounters Date Type Department Care Team ([facility] Contact Info) Description 09/09/2025 2:00 PM EST Medication Management [address] [address] Juni Haji, HennyD [address] [place] [address] 09/16/2025 10:30 AM EST Office Visit [address] [address] Porfirio Saldivar MD [address] [place] [address] 11/04/2025 1:45 PM EST Office Visit [address] [address] Elizabeth Dean NP [address] [place] [phone] documented as of this encounter Visit Diagnoses Diagnosis IFG (impaired fasting glucose) Uncomplicated opioid dependence (CMS/HCC) (HCC) documented in this encounter Care Teams Fulfillment Mail Clerk Relationship Specialty Start Date End Date Kyra Driscoll MD [address] [place] [phone] PCP - General Family Medicine 06/03/19 03/03/24 Elizabeth Dean NP [address] [place] [address] PCP - General Family Medicine 02/25/25 documented as of this encounter
--- OUTSIDE RECORDS SUMMARY | 2025-09-05 14:19 | XMS_ITS | Encounter Summary ---
Author Organization [employer] Address [address] [facility] 7t [place] [address] Care Team Providers Care Carboy Filler Name Role Phone Kyra Driscoll MD Primary Care Provide r Elizabeth Dean NP Primary Care Provider [phone] Reason for Visit * Reason Comments Med Refill Encounter Details Date Type Department Care Team ([facility] st Contact Info) Description 02/25/2023 Refill [facility] MED[facility]INE 230 [place], [place] [phone] Porfirio Saldivar MD 230 [place], [place] [phone] Uncomplicated opioid dependence (CMS/HCC) Social History Tobacco [...] Description 09/09/2025 2:00 PM EST Medication Management [facility]ICINE [address] [place] [address] Juni Haji, PharmD [address] [place] [address] 09/16/2025 10:30 AM EST Office Visit [address] [address] Porfirio Saldivar MD [address] [place] [address] 11/04/2025 1:45 PM EST Office Visit [address] [address] Elizabeth Dean NP [address] [place] [address] documented as of this encounter Visit Diagnoses Diagnosis Uncomplicated opioid dependence (CMS/HCC) (HCC) documented in this encounter Care Teams Carboy Filler Relationship Specialty Start Date End Date Kyra Driscoll MD [address] [place] [address] PCP - General Family Medicine 06/03/19 03/03/24 Elizabeth Dean NP [address] [place] [address] PCP - General Family Medicine 02/25/25 documented as of this encounter
--- OUTSIDE RECORDS SUMMARY | 2025-09-05 14:19 | XMS_ITS | Encounter Summary ---
Author Organization [employer] Address [address] [facility] 7t [place] [address] Care Team Providers Care Manufacturing Sales Representative Name Role Phone Kyra Driscoll MD Primary Care Provide r Elizabeth Dean NP Primary Care Provider [phone] Reason for Visit * Reason Comments Med Refill Encounter Details Date Type Department Care Team (Late Contact Info) Description 04/17/2023 Refill [facility] [address] [place], [place] [phone] [facility] [address] [place] [address] Iron deficiency Social History Tobacco Use Types [...] Description 09/09/2025 2:00 PM EST Medication Management [address] [address] Juni Haji, HennyD [address] [place] [address] 09/16/2025 10:30 AM EST Office Visit [address] [address] Porfirio Saldivar MD [address] [place] [address] 11/04/2025 1:45 PM EST Office Visit [address] [address] Elizabeth Dean NP [address] [place] [address] documented as of this encounter Visit Diagnoses Diagnosis Iron deficiency Disorders of iron metabolism documented in this encounter Care Teams Manufacturing Sales Representative Relationship Specialty Start Date End Date Kyra Driscoll MD [address] [place] [address] PCP - General Family Medicine 06/03/19 03/03/24 Elizabeth Dean NP [address] [place] [address] PCP - General Family Medicine 02/25/25 documented as of this encounter
--- OUTSIDE RECORDS SUMMARY | 2025-09-05 14:19 | XMS_ITS | Encounter Summary ---
Author Organization [employer] Address [address] [facility] 7t [place] [address] Care Team Providers Care Lawyer Criminal Name Role Phone Elizabeth Dean NP Primary Care Provider [phone] Reason for Visit * Reason Comments Med Refill Encounter Details Date Type Department Care Team ([facility] Contact Info) Description 03/27/2025 Refill [facility] 230 [place], [place] [phone] Elizabeth Dean NP 230 [place], [place] [phone] Other muscle spasm Social History Tobacco Use Types Packs/Day Years Used Date Smoking Tobacco: Never Passive Smoke Exposure: Never Smokeless Tobacco: Never Alcohol Use Standard Drinks/Week Comments Never 0 (1 standard drink = 0.6 oz pur e alcohol) Depression Answer Date Recorded Patient Health Questionnaire-9 Score 19 03/07/2025 Patient Health Questionnaire-9 Score 19 03/07/2025 Last PHQ-9: Questionnaire Data Not on file 0 03/07/2025 Housing Stability Answer Date Recorded What is [...] Date Recorded Patient Health Questionnaire-2 Score 5 03/07/2025 Internet Access Answer Date Recorded Internet Access [...] encounter Miscellaneous Notes * Telephone Encounter - Odilia Dhaliwal MA - 04/08/2025 1:05 PM EDT Patient came explaing that PCP said she was gonna prescribe clonozopin 1mg until PT saw phyciatric but patient didnt recieve medication during yesterday medication pickup. documented in this encounter Plan of Treatment Upcoming Encounters Date Type Department Care Team (Late st Contact Info) Description 09/09/2025 2:00 PM EST Medication Management [facility] MED[facility]INE [address] [place] [address] Juni Haji, PharmD [address] [place] [address] 09/16/2025 10:30 AM EST Office Visit [address] [address] Porfirio Saldivar MD [address] [place] [address] 11/04/2025 1:45 PM EST Office Visit [address] [address] Elizabeth Dean NP [address] [place] [address] documented as of this encounter Visit Diagnoses Diagnosis Other muscle spasm documented in this encounter Additional Health Concerns Assessment Noted Time PHQ-9 Depression Total Score: 19 025 7:51 AM EDT documented as of this encounter Care Teams Lawyer Criminal Relationship Specialty Start Date End Date Elizabeth Dean NP 230 [place] [address] PCP - General Family Medicine 02/25/25 documented as of this encounter
--- OUTSIDE RECORDS SUMMARY | 2025-09-05 14:19 | XMS_ITS | Encounter Summary ---
Author Organization [employer] Address [address] [facility] 7t [place] [address] Care Team Providers Care Document Management Specialist Name Role Phone Elizabeth Dean NP Primary Care Provider [phone] Encounter Details Date Type Department Care Team ([facility] st Contact Info) Description 09/01/2025 Telephone [facility] MEDICINE 230 [place], [place] [phone] Elizabeth Dean NP 230 [place], [place] [phone] Social History Tobacco Use Types Packs/Day Years [...] encounter Miscellaneous Notes * Telephone Encounter - Kasia Moran LPN - 09/01/2025 1:51 PM EDT 2nd call to Hoda Haji, [facility], to 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 Nurse will call Monday, after 8:00 AM documented in this encounter Plan of Treatment Upcoming Encounters Date Type Department Care Team (Late st Contact Info) Description 09/09/2025 2:00 PM EST Medication Management [facility] MEDICINE [address] [place] [address] Juni Haji, PharmD [address] [place] [address] 09/16/2025 10:30 AM EST Office Visit [address] [address] Porfirio Saldivar MD [address] [place] [address] 11/04/2025 1:45 PM EST Office Visit [address] [address] Elizabeth Dean NP [address] [place] [address] documented as of this encounter Visit Diagnoses Not on filedocumented in this encounter Additional Health Concerns Assessment Noted Time PHQ-9 Depression Total Score: 20 025 7:51 AM EDT documented as of this encounter Care Teams Document Management Specialist Relationship Specialty Start Date End Date Elizabeth Dean NP 230 [place] [address] PCP - General Family Medicine 02/25/25 documented as of this encounter
--- OUTSIDE RECORDS SUMMARY | 2025-09-05 14:19 | XMS_ITS | Encounter Summary ---
Author Organization [employer] Address [address] [facility] 7t [place] [address] Care Team Providers Care Fur Examiner Name Role Phone Krya Driscoll MD Primary Care Provide r Elizabeth eDan NP Primary Care Provider [phone] Reason for Visit * Reason Comments Med Refill Encounter Details Date Type Department Care Team (Late Contact Info) Description 03/15/2023 Refill [facility] 505 [place], [place] [phone] Nurys Mcdonnell MD 230 [place] [address] Other migraine without status migrainosus, not intractable [...] Care Team [facility]) Description 09/09/2025 2:00 PM EST Medication Management [address] [address] Juni Haji, PharmD 230 [place] [address] 09/16/2025 10:30 AM EST Office Visit [address] [address] Porfirio Saldivar MD 230 [place] [address] 11/04/2025 1:45 PM EST Office Visit [address] [address] Elizabeth Dean NP 230 [place] [address] documented as of this encounter Visit Diagnoses Diagnosis Other migraine without status migrainosus, not intractable documented in this encounter Care Teams Fur Examiner Relationship Specialty Start Date End Date Kyra Driscoll MD [address] [place] [address] PCP - General Family Medicine 06/03/19 03/03/24 Elizabeth Dean NP [address] [place] [address] PCP - General Family Medicine 02/25/25 documented as of this encounter
--- OUTSIDE RECORDS SUMMARY | 2025-09-05 14:19 | XMS_ITS | Clinical Summary ---
Author Organization [employer] Address [address] [place] [address] Care Team Providers Care Billet Inspector Name Role Phone Elizabeth Dean MARCO Primary Care Provider [phone] Allergies Active Allergy Reactions Criticality Noted Date [...] device USE ONCE DAILY DIRECTED 022 Active calcium carbonate (Os-Doron) 1250 (500 Ca) MG chewable tablet Chew 1 tablet in the morning. 019 Active clonazePAM (KlonoPIN) 1 MG tablet TAKE 1 TABLET BY MOUTH EVERY MORNING and TAKE 2 TABLETS BY MOUTH EVERY DAY AT BEDTIME 023 Active Continuous Blood Gluc Senior Bi Architect (FreeStyle Cindy 2 [place]) device USE DIRECTED 023 Active Continuous Blood Gluc Sensor (FreeStyle Cindy 2 Sensor) misc USE DIRECTED. CHANGE EVERY 14 DAYS 023 Active cromolyn (Opticrom) 4 % ophthalmic solution Administer 1 drop into affected eye(s) every 6 (six) hours. 05/09/2 019 Active cyclobenzaprine (Flexeril) 10 MG tablet Take 10 mg by mouth if needed in the morning, at noon, and at bedtime. Active dexAMETHasone (Decadron) 1 MG tablet Take 1 mg by mouth 1 (one) time. Active Diclofenac Sodium 1 % gel Apply topically every 8 (eight) hours. Active dilTIAZem ER (Tiazac) 240 MG 24 hr capsule Take 240 mg by mouth. Active fluocinolone ([place]-Smoothe) 0.01 % external oil apply by topical [...] tablet by mouth in the morning. Active meclizine (Antivert) 25 MG tablet Take 25 mg by mouth if needed in the morning, at noon, and at bedtime. Active nabumetone (Relafen) 500 MG tablet Take 1 tablet by mouth every 12 (twelve) hours. Active omeprazole (PriLOSEC) [address] capsule Take 1 capsule by mouth every 12 (twelve) hours. Active pancrelipase, Wku-Qjdv-Mnyk, (Creon) 1402-5653 units capsule Take 1 capsule by mouth. Active thiamine (Vitamin B-1) 50 MG tablet Take 50 mg by mouth at bedtime. Active cholecalciferol (D3-5) 5,000 Units tablet Take 1 capsule by mouth in the morning. Active diphenhydrAMINE (BENADryl) 25 MG capsuleIndicatio ns:Allergy, subsequent encounter Take 2 capsules (50 mg) by mouth every 6 (six) hours if needed for sleep or allergies. 30 capsule 3 01/29/2 023 Active FREESTYLE LITE test stripIndications :IFG (impaired fasting glucose) TEST BLOOD SUGAR TWICE DAILY 100 each 023 Active TRUEplus Lancets 33G miscIndications: IFG (impaired fasting glucose) TEST BLOOD SUGAR TWICE DAILY 100 each 023 Active Multiple Vitamin (Multivitamin) tablet TAKE 1 TABLET BY MOUTH TWICE DAILY IN THE MORNING AND IN THE EVENING WITH FOOD 180 tablet 3 023 Active mupirocin (Bactroban) 2 % ointmentIndicati ons:Folliculitis APPLY TOPICALLY TO AFFECTED AREA(S) THREE TIMES DAILY IN THE MORNING, AT NOON, AND AT BEDTIME FOR 10 DAYS 22 g 023 Active gabapentin (Neurontin) 600 MG tabletIndication s:Chronic bilateral low back pain without sciatica TAKE 1 TABLET BY MOUTH THREE TIMES DAILY IN THE MORNING, EVENING, AND BEDTIME 90 tablet 1 023 Active Ascorbic Acid (vitamin C) 250 MG tablet TAKE 1 TABLET BY MOUTH THREE TIMES DAILY IN THE MORNING, AT NOON, AND IN THE EVENING 90 tablet 11 023 Active ferrous sulfate (FeroSul) 325 (65 Fe) MG tabletIndication s:Iron deficiency TAKE 1 TABLET BY MOUTH THREE TIMES DAILY IN THE MORNING, AT NOON, AND IN THE EVENING 90 tablet 5 023 Active Vitamin E 45 MG (100 UNIT) capsule TAKE 1 CAPSULE BY MOUTH EVERY EVENING 90 capsule 023 Active cyanocobalamin (Vitamin B-12) 1000 MCG tablet TAKE 1 TABLET BY MOUTH EVERY MORNING 90 tablet 023 Active folic acid (Folvite) 1 MG tablet TAKE 1 TABLET BY MOUTH EVERY MORNING 90 tablet 023 Active TRUEplus Glucose On The Go 4 g chewable tabletIndication s:IFG (impaired fasting glucose) CHEW 4 TABLETS BY MOUTH NEEDED FOR BLOOD SUGAR (<70 MG/DL) DIRECTED 40 tablet 023 Active butalbital-aceta minophen-caffein e 50-325-40 MG tablet TAKE 1 TO 2 TABLETS BY MOUTH IF NEEDED FOR SEVERE HEADACHE, NOT TO EXCEED 2 TABLETS PER DAY 20 tablet 023 Active Spacer/Aero-Hold ing Chambers (OptiChamber Sophia) misc 1 each every 4 (four) hours if needed (asthma). 1 each 025 Active Blood Glucose Monitoring Suppl (ONE TOUCH ULTRA 2) w/Device kitIndications:H ypoglycemia 1 Units if needed in the morning, at noon, in the evening, and at bedtime (hypoglycmia). Use to check blood sugar once daily by fingerstick route 1 kit Active glucose blood (OneTouch Ultra Test) test stripIndications :Hypoglycemia 1 each by Other route if needed in the morning, at noon, in the evening, and at bedtime (hypoglcemia). Use to check blood sugar by subcutaneous route once daily 100 each 3 025 Active lamoTRIgine (LaMICtal) 25 MG tablet Take 1 tablet (25 mg) by mouth every other day. 30 tablet 2 Active magnesium oxide (Mag-Ox) 400 MG tablet Take 1 tablet (400 mg) by mouth Once per day. 30 tablet 11 025 2025 Active ketoconazole (NIZOral) 2 % shampooIndicatio ns:Seborrheic dermatitis Apply topically 2 (two) times a week. 240 mL 1 025 Active albuterol 108 (90 Base) MCG/ACT inhaler INHALE 2 PUFFS BY MOUTH EVERY 4 HOURS NEEDED FOR WHEEZING OR SHORTNESS OF BREATH 18 g 3 025 Active Accu-Chek FastClix Lancets miscIndications: Hypoglycemia 1 each by Other route every 8 (eight) hours if needed (for low blood sugar). Use to check blood sugar by fingerstick route once daily. 100 each 2 Active fexofenadine (Nupur) 180 MG tabletIndication s:Allergy, subsequent encounter Take 1 tablet (180 mg) by mouth Once per day. 90 tablet 025 Active diphenhydrAMINE (Colleen-Dryl) 25 MG tabletIndication s:Allergy, subsequent encounter TAKE 2 TABLETS BY MOUTH EVERY 4 TO 6 HOURS NEEDED 60 tablet Active gabapentin (Neurontin) 800 MG tabletIndication s:Neuropathic pain Take 1 tablet (800 mg) by mouth 3 times daily. 270 tablet 025 2025 Active Alcohol Swabs (Alcohol Prep) 70 % padsIndications: IFG (impaired fasting glucose) Use twice daily 100 each 11 025 Active naloxone (Narcan) 4 mg/0.1 mL nasal spray FOR SUSPECTED OPIOID OVERDOSE. SPRAY 0.1mL IN ONE NOSTRIL. REPEAT IN ALTERNATE NOSTRIL 2-3 MINUTES IF NEEDED. SEEK MEDICAL ATTENTION IMMEDIATELY EVEN IF PATIENT RESPONDS. 2 each 025 Active primidone (Mysoline) 50 MG tablet TAKE 1/2 TABLET BY MOUTH AT BEDTIME 15 tablet 2 025 Active albuterol (2.5 MG/3ML) 0.083% nebulizer solutionIndicati ons:Moderate persistent asthma without complication USE 1 AMPULE USING A NEBULIZER EVERY 6 HOURS NEEDED 90 mL 1 025 Active clobetasol (Temovate) 0.05 % external solutionIndicati ons:Seborrheic dermatitis APPLY TO THE AFFECTED AREA(S) THREE TIMES PER WEEK 50 mL 1 025 Active escitalopram (Lexapro) 5 MG tabletIndication s:Major depressive disorder in full remission, unspecified whether recurrent (CMS/HCC) TAKE 1 TABLET BY MOUTH EVERY DAY 30 tablet 1 025 Active Suboxone 8-2 MG SL filmIndications: Uncomplicated opioid dependence (CMS/HCC) ([facility]) Place 1 Film under the tongue 3 times daily for 28 days. 84 Film 025 2024 Active Vraylar 1.5 MG capsule TAKE 1 CAPSULE BY MOUTH ONCE DAILY 30 capsule 025 Active tiZANidine (Zanaflex) 4 MG tabletIndication s:Other muscle spasm TAKE 1 TABLET BY MOUTH EVERY 8 HOURS NEEDED. DO NOT EXCEED 3 TABLETS PER DAY. 90 tablet 025 Active ondansetron (Zofran) 4 MG tabletIndication s:Nausea,Anxiety TAKE 2 TABLETS BY MOUTH EVERY 12 HOURS NEEDED FOR NAUSEA AND VOMITING FOR UP TO 7 DAYS 20 tablet 025 Active docusate sodium (Colace) 100 MG capsule TAKE 1 CAPSULE BY MOUTH TWICE DAILY IN THE MORNING AND IN THE EVENING 180 capsule 1 025 Active Blood Pressure kit 1 kit Once per day. 1 kit 025 2024 Active Fluticasone Furoate-Vilanter ol (Breo Ellipta) 200-25 MCG/ACT aerosol powder Inhale 1 puff Once per day. 30 each 1 025 2024 Active OXcarbazepine (Trileptal) 600 MG tabletIndication s:Seizure (CMS/HCC) ([facility]) Take 1 tablet (600 mg) by mouth 2 times daily. 60 tablet 2 Active ondansetron ODT (Zofran-ODT) 4 MG disintegrating tabletIndication s:Chronic nausea DISSOLVE 1 TABLET BY MOUTH EVERY TWELVE HOURS DIRECTED 30 tablet 1 Active montelukast (Singulair) 10 MG tabletIndication s:COPD (chronic obstructive pulmonary disease) with chronic bronchitis (CMS/HCC) ([facility]) Take 1 tablet (10 mg) by mouth at bedtime. 90 tablet 3 Active topiramate (Topamax) 25 MG tablet Take 1 tablet (25 mg) by mouth Once per day. 30 tablet 2 025 2025 Active Ubrogepant (Ubrelvy) 100 MG tabletIndication s:Other migraine without status migrainosus, intractable Take 1 tablet (100 mg) by mouth Once daily as needed (headache) for up to 28 days. 14 tablet 1 025 2024 Active Ketotifen Fumarate 0.035 % solutionIndicati ons:Seasonal allergic rhinitis due to pollen INSTILL 1 DROP IN EACH EYE TWICE DAILY IN THE MORNING AND AT BEDTIME NEEDED FOR ITCHING OR FOR ALLERGIES 10 mL 2 Active prazosin (Minipress) 1 MG capsule TAKE 1 CAPSULE BY MOUTH EVERY DAY AT BEDTIME NEEDED 30 capsule 1 Active EPINEPHrine (Epipen) 0.3 MG/0.3ML injection syringeIndicatio ns:Allergy, subsequent encounter INJECT INTRAMUSCULARLY DIRECTED ON PACKAGE AND GO TO EMERGENCY ROOM 2 each 2 Active OXcarbazepine (Trileptal) 600 MG tablet TAKE 1 TABLET BY MOUTH TWICE DAILY IN THE MORNING AND IN THE EVENING 023 2024 Discontinued( Reorder (will not trigger notification to Pharmacy)) montelukast (Singulair) 10 MG tabletIndication s:COPD (chronic obstructive pulmonary disease) with chronic bronchitis (CMS/HCC) ([facility]) Take 1 tablet (10 mg) by mouth at bedtime. 90 tablet 3 023 2024 Discontinued( Reorder (will not trigger notification to Pharmacy)) ondansetron ODT (Zofran-ODT) 4 MG disintegrating tabletIndication s:Chronic nausea DISSOLVE 1 TABLET BY MOUTH EVERY TWELVE HOURS DIRECTED 30 tablet 1 023 2024 Discontinued( Reorder (will not trigger notification to Pharmacy)) SUMAtriptan (Imitrex) 25 MG tabletIndication s:Other migraine without status migrainosus, not intractable TAKE 1 TABLET BY MOUTH AT ONSET OF MIGRAINE. MAY REPEAT ONCE AFTER 2 HOURS IF NEEDED. NO MORE THAN 8 TABLETS DAILY 10 tablet 1 023 2024 Discontinued( Ineffective) docusate sodium (Colace) 100 MG capsule TAKE 1 CAPSULE BY MOUTH TWICE DAILY IN THE MORNING AND IN THE EVENING 180 capsule 1 025 2024 Discontinued Ketotifen Fumarate 0.035 % solutionIndicati ons:Seasonal allergic rhinitis due to pollen Administer 1 drop into both eyes if needed in the morning and at bedtime (itching watering eyes). 10 mL 2 025 2024 Discontinued Vraylar 1.5 MG capsule TAKE 1 CAPSULE BY MOUTH ONCE DAILY 30 capsule 025 2024 Discontinued ondansetron (Zofran) 4 MG tabletIndication s:Nausea,Anxiety TAKE 2 TABLETS BY MOUTH EVERY 12 HOURS NEEDED FOR NAUSEA AND VOMITING FOR UP TO 7 DAYS 20 tablet 025 2024 Discontinued prazosin (Minipress) 1 MG capsule TAKE 1 CAPSULE BY MOUTH EVERY DAY AT BEDTIME NEEDED (NIGHTMARES) 30 capsule 1 025 2024 Discontinued tiZANidine (Zanaflex) 4 MG tabletIndication s:Other muscle spasm TAKE 1 TABLET BY MOUTH EVERY 8 HOURS NEEDED. DO NOT EXCEED 3 TABLETS PER DAY. 90 tablet 025 2024 Discontinued Suboxone 8-2 MG SL filmIndications: Uncomplicated opioid dependence (CMS/HCC) ([facility]) Place 1 Film under the tongue 3 times daily for 28 days. 84 Film 025 2024 Discontinued( Reorder (will not trigger notification to Pharmacy)) EPINEPHrine (Epipen) 0.3 MG/0.3ML injection syringeIndicatio ns:Allergy, subsequent encounter INJECT INTRAMUSCULARLY DIRECTED ON PACKAGE AND GO TO EMERGENCY ROOM 2 each 2 025 2024 Discontinued Fluticasone Furoate-Vilanter ol (Breo Ellipta) 200-25 MCG/ACT aerosol powder INHALE 1 PUFF BY MOUTH EVERY DAY AT THE SAME TIME RINSE MOUTH AFTER USING 30 each 1 025 2024 Discontinued( Reorder (will not trigger notification to Pharmacy)) ondansetron (Zofran) 4 MG tabletIndication s:Nausea,Anxiety TAKE 2 TABLETS BY MOUTH EVERY TWELVE HOURS NEEDED FOR NAUSEA AND VOMITING OF FOR UP TO 7 DAYS 20 tablet 025 2024 Discontinued Active Problems Problem Noted Date Diagnosed Date Acute right ankle pain 08/25/2025 Assessment & Plan (08/25/2025 1:04 PM EDT): Orders: Referral to Orthopaedic Surgery; Future Referral to Physical Therapy; Future Elevated blood pressure reading 08/25/2025 Assessment & Plan (08/25/2025 1:04 PM EDT): Hypoglycemia after GI (gastrointestinal) surgery 08/25/2025 Assessment & Plan (08/25/2025 1:04 PM EDT): Orders: Referral to Endocrinology; Future Referral to Pharmacy MTM Pre-diabetes 08/25/2025 Assessment & Plan (08/25/2025 1:04 PM EDT): Orders: Referral to Endocrinology; Future Comprehensive Metabolic Panel; Future Hemoglobin A1c; Future Primary osteoarthritis of right knee 06/10/2025 Assessment & Plan (06/10/2025 3:22 PM EDT): Rx for new hinged knee brace sent Seborrheic dermatitis 06/10/2025 Assessment & Plan (06/10/2025 3:23 PM EDT): Of scalp, possible psoriasis, Topical ketoconazole, and topical steroid rx Breast screening 06/10/2025 Assessment & Plan (06/10/2025 3:22 PM EDT): Mammogram ordered Cervical cancer screening 06/10/2025 Overview (06/10/2025): Screening hpv and cytology 2024 Assessment & Plan (06/10/2025 3:23 PM EDT): Pap and hpv cotesting sent today Vaginal discharge 04/22/2025 Assessment & Plan (04/29/2025 12:44 PM EDT): Self swab completed Major depressive disorder with current active ep isode 04/22/2025 Assessment & Plan (04/29/2025 12:43 PM EDT): Trial low dose lexapro, pt recalls benefit from SSRI but cannot recall which one, pt self discontinued cymbalta Sprain of right ankle 04/22/2025 Assessment & Plan (05/07/2025 1:52 PM EDT): Chronic issue, now impacting lumbar region Would benefit from stability of air cast as this is impacting chronic pain level Grief 04/11/2025 Disturbance of skin sensation 04/08/2025 Nausea 04/07/2025 Assessment & Plan (04/07/2025 4:22 PM EDT): Zofran rx sent Pt reports was also on magnesium (likely for headaches) Magnesium renewed Incontinence in female 04/07/2025 Assessment & Plan (08/25/2025 1:04 PM EDT): Assessment & Plan (04/07/2025 4:19 PM EDT): Stress incontinence and dysuria Internal hemorrhoids 04/04/2025 Essential hypertension 04/04/2025 Palpitation 03/11/2025 Tachycardia 03/03/2025 Assessment & Plan (03/27/2025 12:06 PM EDT): Pt with complicated pmh inclduing vague cardiac hx, today presents tachycardia, sob, incomplete rbbb on EKG, as well as increased sense of difficulty breathing. case reviewed with Dr. Heidi Foreman called to [facility] and pt transported via ambulance Seizures ([facility]) 02/28/2025 NARCISO positive 02/28/2025 Class 1 obesity 02/28/2025 Migraine 02/28/2025 Assessment & Plan (08/25/2025 1:04 PM EDT): Orders: Ubrogepant (Ubrelvy) 100 MG tablet; Take 1 tablet (100 mg) by mouth Once daily as needed (headache) for up to 28 days. Hypertension 02/28/2025 GERD (gastroesophageal reflux disease) Overproduction of ACTH 01/17/2025 Calculus of gallbladder with acute cholecystitis without obstruction 01/13/2025 Cervical spondylosis without myelopathy 01/14/20 Assessment & Plan (04/07/2025 4:21 PM EDT): Pt requesting neck pillow Dme set up Incomplete right bundle branch block 01/13/2025 Lumbar radiculopathy 01/13/2025 Mixed bipolar affective disorder, mild ([facility]) 01/13/2025 Assessment & Plan (04/07/2025 4:20 PM EDT): Referral to psychiatry, [facility] meds Multiple sclerosis 01/13/2025 Spasm 01/13/2025 Systemic lupus erythematosus ([facility]) Assessment & Plan (03/11/2025 11:55 AM EDT): Referral to rheum Generalized abdominal pain 01/08/2025 Cholecystitis 01/03/2025 Neuropathic [...] 1:16 PM EDT): Resume nupur, Rx sent SHERYL (generalized anxiety disorder) 12/02/2022 Assessment & Plan (04/29/2025 12:46 PM EDT): With insomnia, pt endorses night terrors, discontinue mirtazapine as pt stated was no longer working Prn prazazosin sent Arthritis 12/02/2022 Assessment & Plan (04/29/2025 12:45 PM EDT): Limiting ability to sit on lowered toilet, toilet seat rx ed Chest pain 12/02/2022 Overview (04/07/2025): RBB. Assessment & Plan (04/07/2025 4:17 PM EDT): Pain with inspiration right lower lobe denies sob, X-ray ordered Assessment & Plan (03/11/2025 11:54 AM EDT): Referral to cardiology due to intermittent palpitations and RBB Assessment & Plan (12/22/2022 10:01 AM EST): [...] has an open endo referral. I called [facility] endo. They said they recently lost 4 or 5 providers so they are booked out until October. They happened to have an open appointment MondayMarch 06 at 1545. [address], [address], [place]. I called patient and informed her of her appointment. Migraine headache 12/02/2022 Neck pain 12/02/2022 Obstructive sleep apnea syndrome 12/02/2022 Assessment & Plan (08/25/2025 1:04 PM EDT): Orders: Referral to Sleep Medicine; Future Pain in elbow 12/02/2022 Positive antinuclear antibody 12/02/2022 Rash 12/02/2022 Seropositive rheumatoid arthritis ([facility]/HCC) 11/07 Assessment & Plan (03/11/2025 11:55 AM EDT): Referral to rheumatolgy Dme for walker with seat Snoring 12/02/2022 Sprain of distal tibiofibular ligament [...] Mixed stress and urge urinary incontinence 03/13 Assessment & Plan (04/29/2025 12:44 PM EDT): Chronic issue, referrals for incontinence supplies, Dermatochalasis of both upper eyelids 03/15/2019 Seizure ([facility]) 03/15/2019 Assessment & Plan (08/25/2025 1:04 PM EDT): Orders: Referral to Neurology; Future Referral to Pharmacy MTM OXcarbazepine (Trileptal) 600 MG tablet; Take 1 tablet (600 mg) by mouth 2 times daily. Referral to Physical Therapy; Future Assessment & Plan (04/07/2025 4:21 PM EDT): Hx of , referral to neurology Bilateral hearing loss 09/17/2018 Dyspnea 09/17/2018 Scalp psoriasis 09/17/2018 Systolic murmur 06/13/2018 Irregular periods 02/06/2018 Moderate persistent asthma without complication 01/17/2018 Pterygium 01/17/2018 COPD (chronic obstructive pu lmonary disease) with chronic bronchitis ([facility]) 11/29/2017 Assessment & Plan (08/25/2025 1:04 PM EDT): Orders: montelukast (Singulair) 10 MG tablet; Take 1 tablet (10 mg) by mouth at bedtime. Assessment & Plan (03/11/2025 11:55 AM EDT): Referral to pulm as pt report persistent pain with inspiration No wheeze Cramps of lower extremity 11/29/2017 Assessment & Plan (02/09/2023 12:14 PM EDT): I will order today blood work patient to be contacted with results It is advise to maintain hydration Migraine without aura, not refractory 11/29/2017 Seasonal allergic rhinitis 11/29/2017 Opioid use disorder, moderat e, in early remission, on maintenance therapy, dependence ([facility]) 09/04/2015 Fibromyositis 04/26/2013 Assessment & Plan (04/08/2025 3:32 PM EDT): Pt attended and participated in chronic pain group today - good engagement with group model of care - continue to use combination of non-pharmacological modalities to address pain - followup in one week for theme stress and pain Asthma 01/23/2013 Assessment & Plan (08/25/2025 1:04 PM EDT): Orders: Referral to Pulmonology; Future Referral to Allergy; Future Assessment & Plan (02/25/2025 1:16 PM EDT): [...] (impaired fasting glucose) 01/23/2013 Knee pain 01/23/2013 Assessment & Plan (08/25/2025 1:04 PM EDT): Orders: Referral to Orthopaedic Surgery; Future Referral to Physical Therapy; Future Lumbar back pain 01/23/2013 Assessment & Plan (01/04/2023 3:41 PM EST): Patient states her back is hurting her. We put her on the recall list for an appointment for lumbar back pain. Resolved Problems Problem Noted Date Diagnosed Date Resolved Date Anxiety 04/07/2025 04/11/2025 Anxiety state 04/04/2025 04/08/2025 Muscle pain 04/04/2025 04/08/2025 Depressive disorder 04/04/2025 04/11/20 25 Viral upper respiratory tract infection 02/25/2025 04/08/2025 Hospital discharge follow-up 01/13/2025 04/08/2025 Chest discomfort 01/13/2025 04/08/2025 Multiple joint pain 12/02/2022 04/08/20 25 Mood disorder 01/23/2013 03/07/2025 Obesity 01/23/2013 04/08/2025 Encounters Date Type Department Care Team Description 09/03/[address] [facility] [address] [place] [phone] Elizabeth Dean NP Seasonal allergic rhinitis due to pollen; Allergy, subsequent encounter 09/01/[address] [facility] [address] [place] [address] [phone] Elizabeth Dean NP 08/29/[address] [facility] [address] [place] [address] [phone] Elizabeth Dean NP Durable Medical Equipment 08/28/[address] [facility] [address] [place] [address] [phone] Mile Neri [facility] Supports 08/28/[address] [facility] [address] [place] [address] [phone] Elizabeth Dean NP 08/25/2025 11:30 AM EDT Office Visit [facility] [address] [place] [address] [phone] Elizabeth Dean NP Acute right ankle pain (Primary Dx); Acute pain of right knee; Pre-diabetes; Hypoglycemia after GI (gastrointestinal) surgery; Seizure ([facility]) ([facility]); Moderate asthma without complication, unspecified whether persistent; Elevated blood pressure reading; Chronic nausea; COPD (chronic obstructive pulmonary disease) with chronic bronchitis ([facility]) ([facility]); Other migraine without status migrainosus, intractable; Incontinence in female; Obstructive sleep apnea syndrome; Morbid obesity ([facility]) ([facility]) 08/25/2025 Travel 08/25/[address] [facility] [address] [place] [phone] Torres Morillo MD 08/22/[address] [facility] [address] [place] [phone] Elizabeth Dean NP chart prep 08/19/2025 9:30 AM EDT Clinical Support [facility] [address] [place] [address] [phone] Julia Lu RN Uncomplicated opioid dependence ([facility]) ([facility]) 08/19/2025 Travel 08/14/[address] [facility] [address] [place] [address] [phone] Elizabeth Dean NP Other muscle spasm; Nausea; Anxiety 08/12/[address] [facility] [address] [place] [phone] Julia Lu RN Uncomplicated opioid dependence ([facility]) ([facility]) 08/11/[address] [facility] [address] [place] [phone] Aron Hernández Recovery Supports 08/11/[address] [facility] [address] [place] [phone] Elizabeth Dean NP Moderate persistent asthma without complication 08/06/[address] [facility] [address] [place] [address] [phone] Elizabeth Dean NP Nausea; Anxiety 08/02/[address] [facility] [address] [place] [address] [phone] Elizabeth Dean NP Seborrheic dermatitis; Major depressive disorder in full remission, unspecified whether recurrent ([facility]) 07/31/[address] [facility] [address] [place] [address] [phone] Elizabeth Dean NP Prior Authorization 07/31/[address] [facility] [address] [place] [address] [phone] Elizabeth Dean NP med b form 07/29/[address] [facility] [address] [place] [address] [phone] Elizabeth Dean NP Moderate persistent asthma without complication 07/25/2025 Patient Outreach [address] [phone] Bartolo Petit Recovery Supports 07/22/2025 9:15 AM EDT Office Visit [address] [phone] Porfirio Saldivar MD Uncomplicated opioid dependence ([facility]) (Primary Dx) 07/22/[address] [facility] [address] [place] [phone] Elizabeth Dean NP Allergy, subsequent encounter 07/22/2025 Travel 07/15/[address] [facility] [address] [place] [address] Julia Lu RN Uncomplicated opioid dependence (CMS/HCC) 07/03/[address] [facility] [address] [place] [phone] Elizabeth Dean NP 07/03/[address] [facility] [address] [place] [address] 17769 Elizabeth Dean NP Per Elizabeth 07/02/[address] [facility] [address] [place] [address] 13975 Elizabeth Dean NP Other muscle spasm 06/26/[address] [facility] [address] [place] [address] Elizabeth Dean NP 06/24/2025 Results Follow-Up [address] [address] Elizabeth Dean NP Pap Smear, HPV High Risk with Reflex to Subtypes 06/23/[address] [facility] [address] [place] [address] 84288 Porfirio Saldivar MD Hypoglycemia; Allergy, subsequent encounter; Neuropathic pain; IFG (impaired fasting glucose) 06/23/[address] [facility] [place] [place] [address] Elizabeth Dean NP Hypoglycemia; Nausea; Anxiety; Other muscle spasm 06/23/[address] [facility] [place] [address] Torres Morillo MD 06/19/2025 Telephone [facility] [address] Julia Lu RN Med Refill; Durable Medical Equipment (Pt walked in staying the ankle brace she haves bothers her and is very uncomfortable. Pt is requesting a different ankle brace . ) 06/18/[address] [facility] [place] [address] Julia Lu RN Uncomplicated opioid dependence (CMS/HCC) 06/17/2025 10:00 AM EDT Clinical Support [facility] [place] [address] Julia Lu RN Uncomplicated opioid dependence (CMS/HCC) (Primary Dx) 06/17/2025 Travel 06/14/[address] [facility] [place] [address] Elizabeth Dean NP Major depressive disorder in full remission, unspecified whether recurrent (CMS/HCC) 06/13/[address] [facility] [place] [address] Torres Morillo MD 06/10/2025 1:00 PM EDT Procedure Visit [facility] [place] [address] Elizabeth Dean NP Cervical cancer screening (Primary Dx); Breast screening; Seborrheic dermatitis; Primary osteoarthritis of right knee 06/10/2025 Telephone [facility] [place] [address] Elizabeth Dean NP Durable Medical Equipment 06/10/[address] [facility] [place] [address] Elizabeth Dean NP Seborrheic dermatitis 06/10/[address] [facility] [address] [place] [address] Julia Lu RN Uncomplicated opioid dependence ([facility]) 06/10/2025 Travel 06/09/[address] [facility] [address] [place] [address] Julia Lu RN Uncomplicated opioid dependence ([facility]) 06/09/[address] [facility] [address] [place] [address] Porfirio Saldivar MD 06/05/[address] [facility] [address] [place] [address] Elizabeth Dean NP Other muscle spasm from Last 3 Months Immunizations Immunization Administration Dates Next Due Hep B, adult [...] the past 12 months, has t he [employer], gas, oil or water company threatened to [...] Sign Reading Time Taken Comments Blood Pressure 158/98 08/25/2025 11:55 AM EDT Pulse 71 08/25/2025 11:43 AM EDT Temperature 36.7 C (98.1 F) 08/25/2025 11:43 AM EDT Respiratory Rate 16 08/25/2025 11:43 AM EDT Oxygen Saturation 99% 08/25/2025 11:43 AM EDT Inhaled Oxygen Concentration - - Weight 93.2 kg (205 lb 8 oz) 08/25/2025 11:43 AM EDT Height 160 cm (5' 3 ) 08/25/2025 11:43 AM EDT Body Mass Index 36.4 08/25/2025 11:43 AM EDT Plan of Treatment Upcoming Encounters Date Type Department Care Team (Late st Contact Info) Description 09/09/2025 2:00 PM EST Medication Management [facility] [address] [place] [address] Juni Haji, PharmD [address] [place], [place] [phone] 09/16/2025 10:30 AM EST Office Visit [facility] [address] [place] [address] Porfirio Saldivar MD [address] [place] [address] 11/04/2025 1:45 PM EST Office Visit [facility] [address] [place] [phone] Elizabeth Dean, MARCO [address] [place] [address] Health Maintenance Due Date Last Done Comments [...] - Td or Tdap) 09/20/2023 09/20/2013, 06/26/2007 Mammogram 09/16/2024 09/16/2022, 08/06/2018 COVID-19 Vaccine (3 - season) 2025 11/08/2022, 02/01/2021 Influenza Vaccine (#1) 2025 , 08/22/2019, 11/22/2018, Additional history exists Depression Monitoring 10/11/2025 04/11/2025, 025 Alcohol/Substance Use Screening 02/18/2026 02/18/2025 SDOH Screening 02/18/2026 02/18/2025 Disability Screening 03/03/2026 03/03/2025 Tobacco Screening 08/25/2026 08/25/2025 Lipid Panel 03/01/2028 03/01/2023, 02/05, 11/10/2020 Cervical Cancer Screening 06/10/2030 HPV/Cotest 06/10/2030 06/10/2025, 03/27/2020 Pap Smear 06/10/2030 06/10/2025, 03/27/2020 RSV Patients and Patients Aged 60 years or older (1 - 1-dose 75+ series) 2048 Hepatitis B Vaccines Completed 06/26/2007, 02/06/2007, 01/05/2007 HIV Screening Completed 03/04/2025, 09/20/2022 Hepatitis C Screening Completed 03/04/2025, 022 HIB Vaccines Aged Out No longer eligi [...] Procedure Name Priority Date/Time Associated Diagnosis Comments HEMOGLOBIN A1C Routine 08/27/2025 10:10 AM EDT Pre-diabetes COMPREHENSIVE METABOLIC PANEL Routine 08/27/2025 10:10 AM EDT Pre-diabetes POCT PERLA-14 URINE DRUG SCREEN Routine 07/22/2025 9:47 AM EDT Uncomplicated opioid dependence (CMS/HCC) POCT PERLA-14 URINE DRUG SCREEN Routine 06/17/2025 10:01 AM EDT Uncomplicated opioid dependence (CMS/HCC) PAP SMEAR Routine 06/10/2025 1:25 PM EDT Cervical cancer screening HPV DNA, LOW/HIGH RISK Routine 06/10/2025 1:25 PM EDT Cervical cancer screening HEPATITIS C AB W/REFL TO HCV RNA, QN, PCR Routine 03/04/2025 10:16 AM EDT Opioid type dependence, continuous (CMS/HCC) HIV 1/2 ANTIGEN/ANTIBODY, FOURTH GENERATION W/RFL Routine 03/04/2025 10:16 AM EDT Opioid type dependence, continuous (CMS/HCC) LIPID PANEL, STANDARD Routine 03/01/2023 11:10 AM EDT Cramps of lower extremity Hypoglycemia Primary hypertension MAMMOGRAM GENERIC Routine 09/16/2022 1:3 2 PM EST from Last 3 Months or Most Recently Relevant to Health Maintenance Results * Hemoglobin A1c (08/27/2025 10:10 AM EDT) Hemoglobin A1c 5.5 <6.0 % [facility] Comment:Hemoglobin A1C Refer ence Range Adults: 4.8 - 6.0 % Non diabetic: < 6.0 % Goal: < 7.0 %Additional Action Suggested: > 8.0 %Note: Hemoglobin A1c results are invalid for patients with abnormal amounts of HbF. Blood transfusions may impact the HbA1c concentration in the patient sample. Estimated Average Glucose 111 mg/dL [facility] Comment:eAG = Estimated ave rage glucose which is %A1C expressed asaverage glucose, using the formula of the G7E-RbsnldlVwvzaah Glucose study (ADAG), Diabetes Care, Vol.31,#8,Jun. 2007 Blood Venous blood specimen / Unknown 08/27/2025 10:10 AM EDT 08/27/2025 11:26 AM EDT us Elizabeth Dean NP LAB BLOOD ORDERABLES Final Resul t [facility] [address] [place] [phone] * (ABNORMAL) Comprehensive Metabolic Panel (08/27/2025 10:10 AM EDT) Sodium 143 135 - 145 mmol/L [facility] Potassium 3.5 3.3 - 5.1 mmol/L [facility] Chloride 108 96 - 108 mmol/L [facility] Carbon Dioxide 28 22 - 29 mmol/L [facility] Anion Gap 11(L) 12 - 20 [facility] Urea Nitrogen (BUN) 11 9 - 16 mg/dL [facility] Creatinine, Serum 0.69 0.5 - 1.4 mg/dL [facility] Estimated Glomerular Filt Rate >60 [facility] Comment:Chronic Kidney Disea se: Estimated GFR < 60 mL/min/[id number] Kidney Disease: Estimated GFR < 15 mL/min/1.73m2 Glucose 121(H) 60 - 115 mg/dL [facility] Calcium 9.0 8.4 - 10.2 mg/dL [facility] Bilirubin, Total 0.4 0.0 - 1.0 mg/dL [facility] Aspartate Amino Transferase 37(H) 5 - 31 U/L [facility] Alanine Aminotransferase 14 0 - 31 U/L [facility] Total Protein 7.8 6.5 - 8.0 g/dL [facility] Albumin Level 4.6 3.5 - 5.0 g/dL [facility] Alkaline Phosphatase 132(H) 39 - 117 U/L [facility] Blood Venous blood specimen / Unknown 08/27/2025 10:10 AM EDT 08/27/2025 11:26 AM EDT us Elizabeth Dean NP LAB BLOOD ORDERABLES Final Resul t [facility] [address] [place] [phone] * (ABNORMAL) POCT PERLA-14 Urine Drug Screen (07/22/2025 9:47 AM EDT) Only the most recent of2 resultswithin the time period is included. THC Negative Negative Cocaine Screen, Urine Negative Negative Opiate Screen, Urine Negative Negative Methamphetamine Screen Urine Negative Negative Amphetamine Screen, Urine Negative Negative Benzodiazepines Screen, Urine Negative Negative Barbiturate Screen, Urine Positive(A) Negative Methadone Screen, Urine Negative Negative Buprenophine Screen, Urine Positive(A) Negative TCA, Urine Negative Negative MDMA Urine Negative Negative ng/mL Oxycodone Screen, Urine Negative Negative Phencyclidine (PCP), Urine Negative Negative Fentanyl, Urine Negative Negative Urine Urine specimen obtained by clean catch procedure / Unknown 07/22/2025 9:47 AM EDT us Porfirio Saldivar MD POINT OF CARE TEST ENTER/EDIT ORDERABLES Final Result * HPV High Risk with Reflex to Subtypes (06/10/2025 1:25 PM EDT) HPV High Risk Negative Negative [facility] HPV Genotype 16 Negative Negative [facility] HPV Genotype 18 Negative Negative [facility] Comment:HPV testing performe d at [facility] (CLIA#[id number]), [address] [place] [address].Testing for HPV was performed using the Osorio LOLA 6800system. The presence of HPV in the female genital tract isassociated with a number of diseases, including cervicalcarcinoma. The HPV DNA high risk pool tests for HPV 31, 33,35, 39, 45, 51, 52, 56, 58, 59, 66 and 68. The testing forHPV 16 and 18 genotypes has also been performed. A positiveresult indicates detection of nucleic acid sequences fromone or more subtypes, whereas a negative result indicatessuch sequences were not detected. Pap Vial 06/10/2025 1:25 PM EDT 06/11/2025 8:30 AM EDT us Elizabeth Dean NP LAB BLOOD ORDERABLES Final Resul t [facility] [address] [place] [phone] * Pap Smear (06/10/2025 1:25 PM EDT) Swab Cervix uteri structure / Unknown 06/10/2025 1:25 PM EDT 06/11/2025 8:30 AM EDT [facility] - 06/17/2025 8:19 AM EDT ----- ------- Name: Christie Ortiz Kal Age/Sex: 49/F : 1975 Unit#: [id number] Attend Dr: Elizabeth Dean BRINE PURIFIER Re06/10/25 Status: DEP REF Location: HO.HHCLNP Disch: ----- ------- SPEC : [id number] RECD: 06/11/25 STATUS: SUMMER GARCIA NUM: [id number] RADHA: 06/10/25-[address] [facility] [address]: Elizabeth Dean BRINE PURIFIER ENTERED: 06/11/25 SP TYPE: Pap Smr OTHR : ORDERED: Pap Smear Interpretation Satisfactory for evaluation (following reprocessing with acid wash procedure) Negative for intraepithelial lesion or malignancy. Scant cellularity. HPV High Risk: Negative HPV Genotyping 16: Negative HPV Genotyping 18: Negative Clinical Information LMP: Postmenopausal Previous PAP test: Unknown date/findings Material Received ThinPrep-Cervical PAP Disclaimer As of August 28, 2024, the technical services to include automated prescreening performed by the ThinPrep Imaging System, PAP screening and HPV testing will be performed at [facility] (CLIA #[id number]), [address] [place] [address]. Testing for HPV was performed using the [employer]ai[employer] LOLA 6800 system. The presence of HPV in the female genital tract is associated with a number of diseases, including cervical carcinoma. The HPV DNA high risk pool tests for HPV 31, 33, 35, 39, 45, 51, 52, 56, 58, 59, 66 and 68. The testing for HPV 16 and 18 genotypes has also been performed. A positive result indicates detection of nucleic acid sequences from one or more subtypes, whereas a negative result indicates such sequences were not detected. All professional services are performed by [facility] ([address], [place] [id number]; ; CLIA #[id number]). The PAP Test is a screening procedure with the inherent possibility of both false negative and false positive results. Results should be interpreted in the context of historic and current clinical findings. Reliability of the PAP Test is enhanced by performing the test on a regular repetitive basis. ----- ------- Signed (signature on file) CORDELIA Frederick (ASCP) 06/17/25 0819 ----- ------- END OF REPORT us Elizabeth Dean NP LAB CYTOLOGY ORDERABLES Final Re sult Performing Organization Address [facility] Co de Phone Number [facility] [address] [place] [address] [phone] * Hepatitis C Antibody with Reflex to HCV, RNA, Quantitative, Real-Time PCR (03/04/2025 10:16 AM EDT) Hepatitis C Antibody Nonreactive Nonreactive [facility] Comment:Antibodies to HCV no t detected; does not exclude early acuteHCV infection. Blood Venous blood specimen / Unknown 03/04/2025 10:16 AM EDT 03/04/2025 11:22 AM EDT us Torres Morillo MD LAB BLOOD ORDERABLES Final Resul t Performing Organization Address [facility] Co de Phone Number [facility] [address] [place] [phone] * HIV-1/2 Antigen and Antibodies, Fourth Generation, with Reflexes (03/04/2025 10:16 AM EDT) HIV AB/AG Nonreactive Nonreactive [facility] Comment:HIV-1 p24 Ag and/or HIV-1/HIV-2 Ab not detected.A test result that is nonreactive does not exclude thepossibility of exposure to or infection with HIV-1 and/orHIV-2. Nonreactive results in this assay for individualswith prior exposure to HIV-1 and/or HIV-2 may be due toantigen and antibody levels that are below the limit ofdetection of this assay.The [employer] HIV Ag/Ab Combo assay result andsupplemental assay results should be interpreted inconjunction with the patient's clinical presentation,history and other laboratory results. If the results areinconsistent with clinical evidence, additional testing issuggested to confirm the result. Blood Venous blood specimen / Unknown 03/04/2025 10:16 AM EDT 03/04/2025 11:22 AM EDT us Torres Morillo MD LAB BLOOD ORDERABLES Final Resul t Performing Organization Address City/[facility]/ZIP Co de Phone Number [facility] [address] [place] [address] [phone] * Lipid Panel, Standard (03/01/2023 11:10 AM EDT) Cholesterol, Total 159 <200 mg/dL [facility] HDL Cholesterol 79 > OR = 50 mg/dL [facility] Triglycerides 44 <150 mg/dL [facility] LDL Cholesterol 67 mg/dL (calc) [facility] Comment: Reference range: <100 Desirable range <100 mg/dL for primary prevention; <70 mg/dL for patients with CHD or diabetic patients with > or = 2 CHD risk factors. LDL-C is now calculated using the Jordan calculation, which is a validated novel method providing better accuracy than the Friedewald equation in the estimation of LDL-C. Rayray SS et al. GUILLAUME. 2013;310(19): 5791-3343 (http://education.[employer]/faq/QMJ873) Chol/HDLC Ratio 2.0 <5.0 (calc) [facility] Non-HDL Cholesterol 80 <130 mg/dL (calc) [facility] Comment: For patients with diabetes plus 1 major ASCVD risk factor, treating to a non-HDL-C goal of <100 mg/dL (LDL-C of <70 mg/dL) is considered a therapeutic option. Blood Venous blood specimen / Unknown 03/01/2023 11:10 AM EDT 03/01/2023 11:11 AM EDT Narrative [facility] - 03/04/2023 6:21 AM EDT FASTING:NO FASTING: NO Kyra Doyle MD LAB BLOOD ORDERABLES Final Result Performing Organization Address City/[facility]/ZIP Co de Phone Number [facility] [address], [place] [address] [facility] [address] [place] [phone] * Mammography Report 1 (09/16/2022 1:32 PM [...] MD IMG BI PROCEDURES Fin al Result from Last 3 Months or Most Recently Relevant to Health Maintenance Insurance [facility] STANDARD MEDICARE Care Teams Billet Inspector Relationship Specialty Start Date End Date Elizabeth Dean NP [address] [place] [phone] PCP - General Family Medicine 02/25/25
--- OUTSIDE RECORDS SUMMARY | 2025-09-05 14:19 | XMS_ITS | Encounter Summary ---
Author Organization [employer] Address [address] [facility] 7t [place] [address] Care Team Providers Care Administration Internship Name Role Phone Elizabeth Dean NP Primary Care Provider [phone] Reason for Visit * Reason Comments Med Refill Encounter Details Date Type Department Care Team ([facility] st Contact Info) Description 09/03/2025 Refill [facility] [address] [place], [place] [phone] Elizabeth Dean NP [address] [place], [place] [phone] Seasonal allergic rhinitis due to pollen; Allergy, subsequent encounter Social History Tobacco Use [...] Description 09/09/2025 2:00 PM EST Medication Management [address] [address] Juni Haji, PharmD [address] [place] [address] 09/16/2025 10:30 AM EST Office Visit [address] [address] Porfirio Saldivar MD [address] [place] [address] 11/04/2025 1:45 PM EST Office Visit [address] [address] Elizabeth Dean NP [address] [place] [address] documented as of this encounter Visit Diagnoses Diagnosis Seasonal allergic rhinitis due to pollen Allergy, subsequent encounter documented in this encounter Additional Health Concerns Assessment Noted Time PHQ-9 Depression Total Score: 20 025 7:51 AM EDT documented as of this encounter Care Teams Administration Internship Relationship Specialty Start Date End Date Elizabeth Dean NP [address] [place] [phone] PCP - General Family Medicine 02/25/25 documented as of this encounter
--- OUTSIDE RECORDS SUMMARY | 2025-09-05 14:19 | XMS_ITS | Encounter Summary ---
Author Organization [email or web address] Address [address] [facility] 7t [place] [address] Care Team Providers Care Message And Delivery Service Pricer Name Role Phone Kyra Driscoll MD Primary Care Provide r Elizabeth Dean NP Primary Care Provider [phone] Reason for Visit * Reason Onset Date Comments Durable Medical Equipment 03/28/2023 Encounter Details Date Type Department Care Team (Late st Contact Info) Description 03/28/2023 Telephone [facility] [address] [place], [place] [phone] Kyra Driscoll MD [address] [place], [place] [phone] Durable Medical Equipment Social History Tobacco Use [...] Description 09/09/2025 2:00 PM EST Medication Management [address] [address] Juni Haji, PharmD [address] [place] [address] 09/16/2025 10:30 AM EST Office Visit [address] [address] Porfirio Saldivar MD [address] [place] [address] 11/04/2025 1:45 PM EST Office Visit [address] [address] Elizabeth Dean NP [address] [place] [address] documented as of this encounter Visit Diagnoses Not on filedocumented in this encounter Care Teams Message And Delivery Service Pricer Relationship Specialty Start Date End Date Kyra Driscoll MD [address] [place] [phone] PCP - General Family Medicine 06/03/19 03/03/24 Elizabeth Dean NP [address] [place] [phone] PCP - General Family Medicine 02/25/25 documented as of this encounter
--- OUTSIDE RECORDS SUMMARY | 2025-09-05 14:19 | XMS_ITS | Encounter Summary ---
Author Organization [employer] Address [address] [facility] 7t [place] [address] Care Team Providers Care Analysis Mgr Name Role Phone Kyra Driscoll MD Primary Care Provide r Elizabeth Dean NP Primary Care Provider [phone] Reason for Visit * Reason Comments Med Refill Encounter Details Date Type Department Care Team (Late st Contact Info) Description 06/07/2023 Refill [facility] [address] [place], [place] [phone] Kyra Driscoll MD [address] [place], [place] [phone] Chronic nausea; Allergy, subsequent encounter Social History [...] Description 09/09/2025 2:00 PM EST Medication Management [facility] [address] [place], [place] [phone] Juni Haji, PharmD [address] [place], [place] [phone] 09/16/2025 10:30 AM EST Office Visit [facility] [address] [place] [address] Porfirio Saldivar MD [address] [place] [address] 11/04/2025 1:45 PM EST Office Visit [address] [address] Elizabeth Dean NP [address] [place] [address] documented as of this encounter Visit Diagnoses Diagnosis Chronic nausea Nausea alone Allergy, subsequent encounter documented in this encounter Care Teams Analysis Mgr Relationship Specialty Start Date End Date Kyra Driscoll MD [address] [place] [address] [phone] PCP - General Family Medicine 06/03/19 03/03/24 Elizabeth Dean NP [address] [place] [address] PCP - General Family Medicine 02/25/25 documented as of this encounter
--- OUTSIDE RECORDS SUMMARY | 2025-09-05 14:19 | XMS_ITS | Encounter Summary ---
Author Organization [employer] Address [address] [facility] 7t [place] [address] Care Team Providers Care Farm Manager Name Role Phone Elizabeth Dean MARCO Primary Care Provider [phone] Reason for Visit * Reason Comments Med Refill Encounter Details Date Type Department Care Team ([facility] st Contact Info) Description 03/25/2025 Refill [facility] [address] [place], [place] [phone] Porfirio Saldivar MD [address] [place], [place] [phone] Uncomplicated opioid dependence (CMS/HCC) Social History Tobacco [...] Description 09/09/2025 2:00 PM EST Medication Management [address] [address] Juni Haji, PharmD [address] [place] [address] 09/16/2025 10:30 AM EST Office Visit [address] [address] Porfirio Saldivar MD [address] [place] [address] 11/04/2025 1:45 PM EST Office Visit [address] [address] Elizabeth Dean NP [address] [place] [address] documented as of this encounter Visit Diagnoses Diagnosis Uncomplicated opioid dependence (CMS/HCC) (HCC) documented in this encounter Additional Health Concerns Assessment Noted Time PHQ-9 Depression Total Score: 19 025 7:51 AM EDT documented as of this encounter Care Teams Farm Manager Relationship Specialty Start Date End Date Elizabeth Dean NP [address] [place] [phone] PCP - General Family Medicine 02/25/25 documented as of this encounter
--- OUTSIDE RECORDS SUMMARY | 2025-09-05 14:19 | XMS_ITS | Encounter Summary ---
Author Organization [employer] Address [address] [facility] 7t [place] [address] Care Team Providers Care Four Corner Former Machine Operator Name Role Phone Kyra Driscoll MD Primary Care Provide r Elizabeth Dean NP Primary Care Provider [phone] Reason for Visit * Reason Comments Med Refill Encounter Details Date Type Department Care Team (Late Contact Info) Description 03/10/2023 Refill [facility] MEDICINE 230 [place], [place] [phone] Nurys Mcdonnell MD 230 [place], [place] [phone] Allergy, subsequent encounter Social History Tobacco Use [...] Care Team ([facility] Contact Info) Description 09/09/2025 2:00 PM EST Medication Management [address] [address] Juni Haji, PharmD [address] [place] [address] 09/16/2025 10:30 AM EST Office Visit [address] [address] Porfirio Saldivar MD [address] [place] [address] 11/04/2025 1:45 PM EST Office Visit [address] [address] Elizabeth Dean NP [address] [place] [address] documented as of this encounter Visit Diagnoses Diagnosis Allergy, subsequent encounter documented in this encounter Care Teams Four Corner Former Machine Operator Relationship Specialty Start Date End Date Kyra Driscoll MD [address] [place] [address] PCP - General Family Medicine 06/03/19 03/03/24 Elizabeth Dean NP [address] [place] [address] PCP - General Family Medicine 02/25/25 documented as of this encounter
--- OUTSIDE RECORDS SUMMARY | 2025-09-05 14:19 | XMS_ITS | Clinical Summary ---
Author Organization [facility] Address [address] [facility] [address] [place] [address] Phone Care Team Providers Care Rn Immunology Name Role Phone Mayra Nohemi Primary Care [...] file Insurance MEDICARE PART A & B [facility] MEDICARE PART A & B [facility] MEDICARE PART A & B [place] [facility] PART [facility] [place] & B Member Subscriber Plan / Payer ( fective 2017-Present) Name:Christie Ortiz Member ID:[id number] Relation to Subscriber:Self Name:Christie Ortiz Subscriber ID:[id number] Payer ID:[id number] Group ID:Not on file Type:Medicare Address: [employer] [address] [place] [phone] [place] A & [place] & B [facility] Care Teams Rn Immunology Relationship Specialty Start Date End Date Nohemi Nunez DO [address] [place] [address] PCP - General 11/09/17 Additional Source Comments The information contained in this document represents components of the legal health record. It is not the complete legal health record.[facility]
--- OUTSIDE RECORDS SUMMARY | 2025-09-05 14:19 | XMS_ITS | Encounter Summary ---
Author Organization [facility] Address [address] [facility] [address] [place] [address] Phone Care Team Providers Care Auto Heater Mechanic Name Role Phone Nohemi Nunez DO Primary Care Provider Encounter Details Date Type Department Care Team (Late st Contact Info) Description 01/15/2018 Ancillary Orders [facility] [address] [place] [address] [place], [place] [phone] Kyle Lundberg DO [address] [place] [address] Tachycardia Social History Tobacco Use Types Packs/Day [...] tachycardia documented in this encounter Care Teams Auto Heater Mechanic Relationship Specialty Start Date End Date Nohemi Nunez DO [address] [place] [address] PCP - General 11/09/17 documented as of this encounter Additional Source Comments The information contained in this document represents components of the legal health record. It is not the complete legal health record.[facility]
--- OUTSIDE RECORDS SUMMARY | 2025-09-05 14:19 | XMS_ITS | Clinical Summary ---
Author Organization [facility] Address [address] [place] [address] Care Team Providers Care Dental Scheduler Name Role Phone Kyra Driscoll MD Primary Care Provide r Surgical History Surgery Date Site/Laterality Comments TUBAL LIGATION 2006 Bilateral PROCEDURE: HISTORICAL TUBAL LIGATION OTHER SURGICAL HISTORY 2006 PROCEDURE: CO HYSTEROSCOPY ENDOMETRIAL ABLATION GASTRIC BYPASS 2003 PROCEDURE: GASTRIC BYPASS FOR OBESIT; COMMENT: revision 2019 BREAST REDUCTION 2002 PROCEDURE: CO BREAST REDUCTION OTHER SURGICAL HISTORY 2009 PROCEDURE: ---- HEMORRHOIDS ---- CARPAL TUNNEL RELEASE 2010 PROCEDURE: CO NEUROPLASTY &/TRANSPOS MEDIAN NRV CARPAL TUNNE KNEE ARTHROPLASTY Right PROCEDURE: CO ARTHRS KNEE ABRASION ARTHRP/CAMP ADVISOR DRLG/MICROFX BACK SURGERY PROCEDURE: HISTORICAL BACK SURGERY; COMMENT: lower back ? 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 ([facility] V24, [facility] V28) DX:Opioid depend w opioid-in maxime psychotic disorder w delusions ([facility]) Back pain DX:Back pain Cramps of lower extremity DX:Reconciliation Specialist mps of lower extremity Gastric bypass status for obesity DX:Gastric bypass status for obesity Knee pain DX:Knee pain Back pain DX:Back pain Systolic murmur DX:Systolic murm ur Seizure disorder ([facility] V2 4, [facility] V28) DX:Seizure disorder ([facility]) Bilateral hearing loss DX:Bilate ral hearing loss Bronchitis DX:Bronchitis Migraine DX:Migraine Scalp psoriasis DX:Scalp psorias is Bipolar 1 disorder (CMS/[facility] V24, [facility]/HCC V28) DX:Bipolar 1 disorder (HCC) Family History [...] RESULTING AGENCY - 03/27/2020 12:15 PM EDT [id number] THINPREP PAP, IMAGED: NEGATIVE FOR SQUAMOUS INTRAEPITHELIAL [...] Recently Relevant to Health Maintenance Care Teams Dental Scheduler Relationship Specialty Start Date End Date Kyra Driscoll MD [address] [phone] PCP - General Internal Medicine 08/13/21
== END 2025-09-05 14:25 | disposition home or self-care (01) ==
LOC: HO.RHES 13:11
PROVIDERS: PCP Internal Medicine; Visit Provider Student in an Organized Health Care Education/Training Program
DX: M05.79 Rheumatoid arthritis with rheumatoid factor of multiple sites without organ or systems involvement (principal); M79.7 Fibromyalgia; M15.9 Polyosteoarthritis, unspecified; Z51.81 Encounter for therapeutic drug level monitoring; Z79.631 Long term (current) use of antimetabolite agent
CPT/HCPCS: 99215; G2211

== ENCOUNTER → 2025-09-05 13:10 | Outpatient (BNVA) | payer MEDICARE, MEDICAID, SELFPAY | PROVIDERS: PCP Internal Medicine; Visit Provider Student in an Organized Health Care Education/Training Program | DX: M05.9 Rheumatoid arthritis with rheumatoid factor, unspecified (principal); M79.7 Fibromyalgia; M15.9 Polyosteoarthritis, unspecified; Z51.81 Encounter for therapeutic drug level monitoring; Z79.631 Long term (current) use of antimetabolite agent | CPT/HCPCS: 99212 ==

== ENCOUNTER 2025-09-10 14:12 | Outpatient (AMB) | payer MEDICARE, MEDICAID, SELFPAY ==
[2025-09-10 14:34] VITALS: BMI 36.4
--- NOTE | 2025-09-10 14:34 | MHC.OFFVIS ---
Vital Signs 09/10/25 14:34 Height 5 ft 3 in Weight 205 lb 8 oz BMI 36.4 Intake Visit Reasons: Right Ankle Pain Intake Note: Christie is a 50 year old female who presents today for an evaluation of her right ankle pain without injuries. Patient reports she has been experiencing this pain for over 1 month. She was prescribed naproxen by her PCP, and she takes OTC tylenol to help manage her pain symptoms and she has found slight relief. Allergies latex (LATEX) Allergy (Intermediate, Verified 09/10/25 14:36) RASH ENVIROMENTAL Allergy (Intermediate, Uncoded 09/05/25 13:48) HAYFEVER Food Allergy Formula Allergy (Unknown, Uncoded 09/05/25 13:48) Anaphylaxis Onions Allergy (Unknown, Uncoded 09/05/25 13:48) Anaphylaxis seasonal allergies Allergy (Unknown, Uncoded 09/05/25 13:48) Difficulty Breathing shellfish Allergy (Unknown, Uncoded 09/05/25 13:48) Anaphylaxis HPI Comments Details: The patient is a 50-year-old female with a past medical history as seen below presenting with severe right ankle pain. The pain is localized to the right ankle and is noted mostly to the lateral aspect of the ankle and has been persistent without any recent trauma or fall. The patient reports a history of epilepsy but denies any recent seizures or falls associated with her condition. The patient has been using a sleeve brace which she finds ineffective. Patient states she was previously prescribed naproxen which provides mild relief. Patient states she takes [id number] Tylenol with mild relief. Patient denies any radiation of pain. Patient states she experiences intermittent swelling to the right ankle. She denies any other pedal concerns. [facility] Medical History (Updated 09/10/25 @ 14:53 by Sagrario Diane DPM) Chronic instability of ankle Right ankle pain Hypoglycemia Panniculitis Nausea Cellulitis Postoperative nausea and vomiting Migraine History of irregular heartbeat History of opioid abuse History of schizophrenia History of bipolar disorder History of seizures Sprain of ankle, right Obstructive sleep apnea Elevated cortisol level Hypoglycemia Epigastric abdominal pain Asthma Anemia Fibromyalgia Depression Hypertension Kidney calculi Carpal tunnel syndrome on both sides Surgical History S/P panniculectomy S/P thighplasty S/P brachioplasty History of back surgery History of endometrial ablation History of blepharoplasty H/O esophagogastroduodenoscopy H/O colonoscopy H/O section History of knee surgery H/O tubal ligation H/O hemorrhoidectomy H/O abdominoplasty History of bilateral breast reduction surgery H/O gastric bypass Family History Father Diabetes HTN (hypertension) Cancer Heart disease Mother Cancer Diabetes HTN (hypertension) Social History Household Members: Children Household Members Other:: daughter Are you a primary respiratory care faculty to a significant other at home: No Do you presently have visiting nurse or other home services: Yes ([employer]) Alcohol intake: never Patient Tobacco Use Status: Never used Tobacco Substance Use Type: Marijuana service: No Current occupational status: retired Current occupation: [employer] Review of Systems Const Details: - Musculoskeletal: Reports severe right ankle pain and swelling, denies radiation of pain - Neurological: Denies recent seizures or falls, reports intact sensation in the ankle region. All systems reviewed & are unremarkable except as noted in HPI and below Physical Exam Vital Signs: BMI result Body Mass Index 36.4 Extrem Other: Right lower extremity focused physical exam: Derm: No open lesions abrasions or wounds noted. No ecchymosis or discoloration noted. No maceration or clinical signs of infection noted. Skin supple and turgor within normal limits. Vascular: DP/PT pulses palpable. Capillary refill time less than 3 seconds. Temperature gradient warm to warm. Pedal hair absent. No varicosities noted. Mild edema noted to the ankle. Neuro: Protective sensation is grossly intact. MSK: Pain on palpation to the ankle mostly to the lateral aspect of the ankle in the lateral gutter along the course of the ATFL , PTFL, and CFL. Mild Pain on palpation along the deltoid ligaments in medial gutter. Positive anterior drawer test. Range of motion of the ankle noted to be painful and limited due to guarding from pain. MMT 4/5. Range of motion of the forefoot and hindfoot within normal limits. No crepitus noted. Antalgic gait noted with the use of a walker. Results Reviewed Results Reviewed: Ordered right ankle three-view weight-bearing x-rays to be performed prior to next visit. Assessment & Plan Assessment & Plan (1) Right ankle pain: Code(s): M25.571 - Pain in right ankle and joints of right foot Category: Medical Qualifiers: Chronicity: chronic Qualified Code(s): M25.571 - Pain in right ankle and joints of right foot; G89.29 - Other chronic pain (2) Sprain of ankle, right: Code(s): S93.401A - Sprain of unspecified ligament of right ankle, initial encounter Category: Medical Qualifiers: Encounter type: initial encounter Involved ligament of ankle: unspecified ligament Qualified Code(s): S93.401A - Sprain of unspecified ligament of right ankle, initial encounter (3) Chronic instability of ankle: Code(s): M25.373 - Other instability, unspecified ankle Category: Medical Plan Patient was informed and verbally consented to the use of an ambient scribe for clinic note documentation during this visit. I discussed with the patient the likely diagnosis of a ligament sprain and chronic ankle instability and the management plan, including the use of a new brace, physical therapy, and medication adjustment. We reviewed the need for new x-rays. We also discussed the potential for surgery if conservative measures fail. The patient was advised to return in three weeks for a follow-up evaluation. - Ordered right ankle x-rays to be performed prior to next visit.. - provided patient with a lace-up stabilizing ankle brace to be worn while ambulating and with activity. - provided referral for physical therapy to strengthen the ankle and improve function. - prescribed Tylenol 650 mg to be taken as needed for pain. - advised patient to avoid barefoot walking and to wear supportive shoe gear. - adhere to RICE protocol. RTC in 3 weeks. Orders: Orders PT Evaluation and Treatment Today M25.373 - Other instability, unspecified ankle, M25.571 - Pain in right ankle and joints of right foot, M70.61 - Trochanteric bursitis, right hip, M70.62 - Trochanteric bursitis, left hip, S93.401A - Sprain of unspecified ligament of right ankle, initial encounter XR ankle RT min 3V Today M25.571 - Pain in right ankle and joints of right foot Medications: New acetaminophen ER (Tylenol Arthritis Pain) 650 mg PO Q8H PRN 30 tabs 1RF pain M25.373 - Other instability, unspecified ankle, M25.571 - Pain in right ankle and joints of right foot, S93.401A - Sprain of unspecified ligament of right ankle, initial encounter Coding Level of Care Code New Pt Level 4 (92403) Diagnoses Chronic pain of right ankle M25.571; G89.29 Chronicity: chronic Sprain of right ankle, unspecified ligament, initial encounter S93.401A Encounter type: initial encounter Involved ligament of ankle: unspecified ligament Chronic instability of ankle M25.373 Time Spent (min) 46
--- OUTSIDE RECORDS SUMMARY | 2025-09-10 17:21 | XMS_ITS | Encounter Summary ---
Author Organization [employer] Address [address] [facility] 7t [place] [address] Care Team Providers Care Flash Designer Name Role Phone Kyra Driscoll MD Primary Care Provide r Elizabeth Dean NP Primary Care Provider [phone] Reason for Visit * Reason Comments Med Refill Encounter Details Date Type Department Care Team ([facility] Contact Info) Description 04/24/2023 Refill [facility] MEDICINE 230 [place], [place] [phone] Kyra Driscoll MD 230 [place], [place] [phone] Allergy, subsequent encounter Social History Tobacco Use [facility] Description 09/16/2025 10:30 AM EST Office Visit [address] [address] Porfirio Saldivar MD [address] [place] [address] 09/16/2025 2:00 PM EST Medication Management [address] [address] Juni Haji, PharmD [address] [place] [address] 10/14/2025 9:30 AM EST Clinical Support [address] [address] Julia Lu RN 11/04/2025 1:45 PM EST Office Visit [address] [address] Elizabeth Dean NP [address] [place] [address] documented as of this encounter Visit Diagnoses Diagnosis Allergy, subsequent encounter documented in this encounter Care Teams Flash Designer Relationship Specialty Start Date End Date Kyra Driscoll MD [address] [place] [address] PCP - General Family Medicine 06/03/19 03/03/24 Elizabeth Dean NP [address] [place] [address] PCP - General Family Medicine 02/25/25 documented as of this encounter
--- OUTSIDE RECORDS SUMMARY | 2025-09-10 17:21 | XMS_ITS | Encounter Summary ---
Author Organization [employer] Address [address] [facility] 7t [place] [address] Care Team Providers Care Chief Talent Officer Name Role Phone Kyra Driscoll MD Primary Care Provide r Elizabeth Dean NP Primary Care Provider [phone] Reason for Visit * Reason Comments Med Refill Encounter Details Date Type Department Care Team ([facility] Contact Info) Description 04/22/2023 Refill [facility] MEDICINE 230 [place], [place] [phone] Kyra Driscoll MD 230 [place], [place] [phone] Moderate persistent asthma without complication Social History [...] Upcoming Encounters Date Type Department Care Team ([facility] Contact Info) Description 09/16/2025 10:30 AM EST Office Visit [address] [address] Porfirio Saldivar MD [address] [place] [address] 09/16/2025 2:00 PM EST Medication Management [address] [address] Juni Haji, PharmD [address] [place] [address] 10/14/2025 9:30 AM EST Clinical Support [address] [address] Julia Lu RN 11/04/2025 1:45 PM EST Office Visit [address] [address] Elizabeth Dean NP [address] [place] [address] documented as of this encounter Visit Diagnoses Diagnosis Moderate persistent asthma without complication documented in this encounter Care Teams Chief Talent Officer Relationship Specialty Start Date End Date Kyra Driscoll MD [address] [place] [address] PCP - General Family Medicine 06/03/19 03/03/24 Elizabeth Dean NP [address] [place] [address] PCP - General Family Medicine 02/25/25 documented as of this encounter
--- OUTSIDE RECORDS SUMMARY | 2025-09-10 17:21 | XMS_ITS | Encounter Summary ---
Author Organization [employer] Address [address] [facility] 7t [place] [address] Care Team Providers Care Coater Operator Name Role Phone Kyra Driscoll MD Primary Care Provide r Elizabeth Dean NP Primary Care Provider [phone] Reason for Visit * Reason Comments Med Refill Encounter Details Date Type Department Care Team ([facility] st Contact Info) Description 02/25/2023 Refill [facility] MEDICINE 230 [place], [place] [phone] Porfirio Saldivar MD 230 [place], [place] [phone] Uncomplicated opioid dependence (CMS/HCC) Social History Tobacco [...] Care Team (Late st Contact Info) Description 09/16/2025 10:30 AM EST Office Visit [address] [address] Porfirio Saldivar MD [address] [place] [address] 09/16/2025 2:00 PM EST Medication Management [address] [address] Juni Haji, PharmD [address] [place] [address] 10/14/2025 9:30 AM EST Clinical Support [address] [address] Julia Lu RN 11/04/2025 1:45 PM EST Office Visit [address] [address] Elizabeth Dean NP [address] [place] [address] documented as of this encounter Visit Diagnoses Diagnosis Uncomplicated opioid dependence (CMS/HCC) (HCC) documented in this encounter Care Teams Coater Operator Relationship Specialty Start Date End Date Kyra Driscoll MD [address] [place] [address] PCP - General Family Medicine 06/03/19 03/03/24 Elizabeth Dean NP [address] [place] [address] PCP - General Family Medicine 02/25/25 documented as of this encounter
--- OUTSIDE RECORDS SUMMARY | 2025-09-10 17:21 | XMS_ITS | Encounter Summary ---
Author Organization [facility] Address [address] [facility] [address] [place] [address] Phone Care Team Providers Care Block Cleaner Name Role Phone Nohemi Nunez DO Primary Care Provider Encounter Details Date Type Department Care Team (Late st Contact Info) Description 01/15/2018 Ancillary Orders [facility] [address] [place] [address] [place], [place] [phone] Kyle Lundberg DO 146 [place] [address] Tachycardia Social History Tobacco Use Types Packs/Day [...] tachycardia documented in this encounter Care Teams Block Cleaner Relationship Specialty Start Date End Date Nohemi Nunez DO [address] [place] [address] PCP - General 11/09/17 documented as of this encounter Additional Source Comments The information contained in this document represents components of the legal health record. It is not the complete legal health record.[facility]
--- OUTSIDE RECORDS SUMMARY | 2025-09-10 17:21 | XMS_ITS | Encounter Summary ---
Author Organization [employer] Address [address] [facility] 7t [place] [address] Care Team Providers Care Data Center Engineer Name Role Phone Kyra Driscoll MD Primary Care Provide r Elizabeth Dean NP Primary Care Provider [phone] Reason for Visit * Reason Comments Med Refill Encounter Details Date Type Department Care Team (Late Contact Info) Description 06/07/[address] [facility] MEDICINE 230 [place], [place] [phone] Rachel Cash FNP [address] [place], [place] [phone] Allergy, subsequent encounter Social History Tobacco Use [...] Description 09/16/2025 10:30 AM EST Office Visit [facility] 230 [place], [place] [phone] Porfirio Saldivar MD 230 [place], [place] [phone] 09/16/2025 2:00 PM EST Medication Management [address] [address] Juni Haji, HennyD [address] [place] [address] 10/14/2025 9:30 AM EST Clinical Support [address] [address] Julia Lu, BEN 11/04/2025 1:45 PM EST Office Visit [address] [address] Elizabeth Dean NP [address] [place] [address] documented as of this encounter Visit Diagnoses Diagnosis Allergy, subsequent encounter documented in this encounter Care Teams Data Center Engineer Relationship Specialty Start Date End Date Kyra Driscoll MD [address] [place] [address] PCP - General Family Medicine 06/03/19 03/03/24 Elizabeth Dean NP [address] [place] [address] PCP - General Family Medicine 02/25/25 documented as of this encounter
--- OUTSIDE RECORDS SUMMARY | 2025-09-10 17:21 | XMS_ITS | Encounter Summary ---
Author Organization [facility] Address [address] [facility] [address] [place] [address] Phone Care Team Providers Care Lead Process Engineer Name Role Phone Nohemi Nunez Primary Care Provider [phone] Encounter Details Date Type Department Care Team (Late st Contact Info) Description 01/16/2019 Ancillary Orders [facility] [address] [place] [address] Zora Hughes PA [address] [place] [address] [email or web address] Palpitations Social History Tobacco Use Types Packs/Day [...] Palpitations documented in this encounter Care Teams Lead Process Engineer Relationship Specialty Start Date End Date Nohemi Nunez DO 230 [place] [address] PCP - General 11/09/17 documented as of this encounter Additional Source Comments The information contained in this document represents components of the legal health record. It is not the complete legal health record.[facility]
--- OUTSIDE RECORDS SUMMARY | 2025-09-10 17:21 | XMS_ITS | Encounter Summary ---
Author Organization [employer] Address [address] [facility] 7t [place] [address] Care Team Providers Care Senior Principal Process Engineer Name Role Phone Kyra Driscoll MD Primary Care Provide r Elizabeth Dean NP Primary Care Provider [phone] Reason for Visit * Reason Comments Med Refill Encounter Details Date Type Department Care Team (Late Contact Info) Description 03/15/2023 Refill [facility] CHC MED & PEDS [address] [place], [place] [phone] Nurys Mcdonnell MD 230 [place] [address] Other migraine without status migrainosus, not intractable [...] Department Care Team (Late Contact Info) Description 09/16/2025 10:30 AM EST Office Visit [address] [place] [address] Porfirio Saldivar MD [facility] [place] [place] [address] 09/16/2025 2:00 PM EST Medication Management [address] [address] Juni Haji, PharmD [address] [place] [address] [place] [address] 10/14/2025 9:30 AM EST Clinical Support [address] [address] Julia Lu RN 11/04/2025 1:45 PM EST Office Visit [address] [place] [address] Elizabeth Dean NP [address] [place] [address] documented as of this encounter Visit Diagnoses Diagnosis Other migraine without status migrainosus, not intractable documented in this encounter Care Teams Senior Principal Process Engineer Relationship Specialty Start Date End Date Kyra Driscoll MD [facility] [place] [address] PCP - General Family Medicine 06/03/19 03/03/24 Elizabeth Dean NP [address] [place] [address] PCP - General Family Medicine 02/25/25 documented as of this encounter
--- OUTSIDE RECORDS SUMMARY | 2025-09-10 17:21 | XMS_ITS | Encounter Summary ---
Author Organization [employer] Address 75 [facility] 7t [place] [address] Care Team Providers Care Sintering Plant Supervisor Name Role Phone Kyra Driscoll MD Primary Care Provide r Elizabeth Dean NP Primary Care Provider [phone] Reason for Visit * Reason Comments Med Refill Encounter Details Date Type Department Care Team (Late Contact Info) Description 04/17/2023 Refill [facility] CHC MED & PEDS [address] [place], [place] [phone] [facility] [address] [place] [address] Iron deficiency Social History Tobacco Use Types [...] Description 09/16/2025 10:30 AM EST Office Visit [address] [address] Porfirio Saldivar MD [address] [place] [address] 09/16/2025 2:00 PM EST Medication Management [address] [address] Juni Haji, PharmD [address] [place] [address] 10/14/2025 9:30 AM EST Clinical Support [address] [address] Julia Lu RN 11/04/2025 1:45 PM EST Office Visit [address] [address] Elizabeth Dean NP [address] [place] [address] documented as of this encounter Visit Diagnoses Diagnosis Iron deficiency Disorders of iron metabolism documented in this encounter Care Teams Sintering Plant Supervisor Relationship Specialty Start Date End Date Kyra Driscoll MD [address] [place] [address] PCP - General Family Medicine 06/03/19 03/03/24 Elizabeth Dean NP [address] [place] [address] PCP - General Family Medicine 02/25/25 documented as of this encounter
--- OUTSIDE RECORDS SUMMARY | 2025-09-10 17:21 | XMS_ITS | Encounter Summary ---
Author Organization [employer] Address [address] [place] [address] 7[place] [address] Care Team Providers Care Bottle Tester Name Role Phone Kyra Driscoll MD Primary Care Provide r Elizabeth Dean NP Primary Care Provider [phone] Encounter Details Date Type Department Care Team (Late st Contact Info) Description 09/26/2022 Abstract [facility] MEDICINE [address] [place] [address] [phone] Kyra Driscoll MD [address] [place] [address] [phone] Social History Tobacco Use Types Packs/Day Years [...] Description 09/16/2025 10:30 AM EST Office Visit [facility] MEDICINE [address] [place] [address] [phone] Porfirio Saldivar MD [address] [place] [address] [phone] 09/16/2025 2:00 PM EST Medication Management [facility] MEDICINE [address] [place] [address] [phone] Juni Haji, PharmD [address] [place] [address] [phone] 10/14/2025 9:30 AM EST Clinical Support [address] [address] Julia Lu RN 11/04/2025 1:45 PM EST Office Visit [address] [address] Elizabeth Dean NP [address] [place] [address] documented as of this encounter Visit Diagnoses Not on filedocumented in this encounter Care Teams Bottle Tester Relationship Specialty Start Date End Date Kyra Driscoll MD [address] [place] [address] PCP - General Family Medicine 06/03/19 03/03/24 Elizabeth Dean NP [address] [place] [address] PCP - General Family Medicine 02/25/25 documented as of this encounter
--- OUTSIDE RECORDS SUMMARY | 2025-09-10 17:21 | XMS_ITS | Encounter Summary ---
Author Organization [employer] Address 75 [facility] 7t [place] [address] Care Team Providers Care Manager Educational Name Role Phone Kyra Driscoll MD Primary Care Provide r Elizabeth Dean NP Primary Care Provider [phone] Reason for Visit * Reason Comments Med Refill Encounter Details Date Type Department Care Team (Late st Contact Info) Description 05/23/[address] [facility] MEDICINE [address] [place], [place] [phone] Nurys Mcdonnell MD 230 [place], [place] [phone] COPD (chronic obstructive pulmonary disease) with chronic bronchitis ([facility]/HCC) Social History Tobacco Use Types Packs/Day Years [...] Office Visit [facility] MEDICINE 230 [place], [place] [phone] Porfirio Saldivar MD 230 [place], [place] [phone] 09/16/2025 2:00 PM EST Medication Management [address] [address] Juni Haji, PharmD [address] [place] [address] 10/14/2025 9:30 AM EST Clinical Support [address] [address] Julia Lu, BEN 11/04/2025 1:45 PM EST Office Visit [address] [address] Elizabeth Dean NP [address] [place] [address] documented as of this encounter Visit Diagnoses Diagnosis COPD (chronic obstructive pulmonary disease) with chronic bronchitis (CMS/HCC) (HCC) documented in this encounter Care Teams Manager Educational Relationship Specialty Start Date End Date Kyra Driscoll MD [address] [place] [address] PCP - General Family Medicine 06/03/19 03/03/24 Elizabeth Dean NP [address] [place] [address] PCP - General Family Medicine 02/25/25 documented as of this encounter
--- OUTSIDE RECORDS SUMMARY | 2025-09-10 17:21 | XMS_ITS | Encounter Summary ---
Author Organization [employer] Address 75 [facility] 7t [place] [address] Care Team Providers Care Curator Of Collections Name Role Phone Kyra Driscoll MD Primary Care Provide r Elizabeth Dean NP Primary Care Provider [phone] Reason for Visit * Reason Onset Date Comments Durable Medical Equipment 03/28/2023 Encounter Details Date Type Department Care Team (Late st Contact Info) Description 03/28/2023 Telephone [facility] MEDICINE 230 [place], [place] [phone] Kyra Driscoll MD 230 [place], [place] [phone] Durable Medical Equipment Social History Tobacco Use [...] Description 09/16/2025 10:30 AM EST Office Visit [address] [address] Porfirio Saldivar MD [address] [place] [address] 09/16/2025 2:00 PM EST Medication Management [address] [address] Juni Haji, PharmD [address] [place] [address] 10/14/2025 9:30 AM EST Clinical Support [address] [address] Julia Lu, BEN 11/04/2025 1:45 PM EST Office Visit [address] [address] Elizabeth Dean NP [address] [place] [address] documented as of this encounter Visit Diagnoses Not on filedocumented in this encounter Care Teams Curator Of Collections Relationship Specialty Start Date End Date Kyra Driscoll MD [address] [place] [address], [place] [address] PCP - General Family Medicine 06/03/19 03/03/24 Elizabeth Dean NP 230 [place] [address] PCP - General Family Medicine 02/25/25 documented as of this encounter
--- OUTSIDE RECORDS SUMMARY | 2025-09-10 17:21 | XMS_ITS | Encounter Summary ---
Author Organization [employer] Address 75 [facility] 7t [place] [address] Care Team Providers Care Day Treatment Clinician/Art Therapist Name Role Phone Kyra Driscoll MD Primary Care Provide r Elizabeth Dean NP Primary Care Provider [phone] Reason for Visit * Reason Comments Med Refill Encounter Details Date Type Department Care Team ([facility] Contact Info) Description 02/06/2023 Refill [facility] MEDICINE 230 [place], [place] [phone] Rachel Cash FNP 505 [place] [address] IFG (impaired fasting glucose); Uncomplicated opioid dependence [...] Encounters Date Type Department Care Team ([facility] Contact Info) Description 09/16/2025 10:30 AM EST Office Visit [address] [address] Porfirio Saldivar MD [address] [place] [address] 09/16/2025 2:00 PM EST Medication Management [address] [address] Juni Haji, PharmD [address] [place] [address] 10/14/2025 9:30 AM EST Clinical Support [address] [address] Julia Lu RN 11/04/2025 1:45 PM EST Office Visit [address] [address] Elizabeth Dean NP [address] [place] [address] documented as of this encounter Visit Diagnoses Diagnosis IFG (impaired fasting glucose) Uncomplicated opioid dependence (CMS/HCC) (HCC) documented in this encounter Care Teams Day Treatment Clinician/Art Therapist Relationship Specialty Start Date End Date Kyra Driscoll MD [address] [place] [address] PCP - General Family Medicine 06/03/19 03/03/24 Elizabeth Dean NP [address] [place] [address] PCP - General Family Medicine 02/25/25 documented as of this encounter
--- OUTSIDE RECORDS SUMMARY | 2025-09-10 17:21 | XMS_ITS | Clinical Summary ---
Author Organization [facility] Address [address] [place] [address] Care Team Providers Care Inventory Controller Name Role Phone Kyra Driscoll MD Primary Care Provide r Surgical History Surgery Date Site/Laterality Comments TUBAL LIGATION 2006 Bilateral PROCEDURE: HISTORICAL TUBAL LIGATION OTHER SURGICAL HISTORY 2006 PROCEDURE: [place] HYSTEROSCOPY ENDOMETRIAL ABLATION GASTRIC BYPASS 2003 PROCEDURE: GASTRIC BYPASS FOR OBESIT; COMMENT: revision 2019 BREAST REDUCTION 2002 PROCEDURE: [place] BREAST REDUCTION OTHER SURGICAL HISTORY 2009 PROCEDURE: ---- HEMORRHOIDS ---- CARPAL TUNNEL RELEASE 2010 PROCEDURE: [place] NEUROPLASTY &/TRANSPOS MEDIAN NRV CARPAL TUNNE KNEE ARTHROPLASTY Right PROCEDURE: [place] ARTHRS KNEE ABRASION ARTHRP/MOLDING AND TRIM INSTALLER DRLG/MICROFX BACK SURGERY PROCEDURE: HISTORICAL BACK SURGERY; COMMENT: lower back ? 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 ([facility] V24, [facility] V28) DX:Opioid depend w opioid-in maxime psychotic disorder w delusions ([facility]) Back pain DX:Back pain Cramps of lower extremity DX:Rigging Man mps of lower extremity Gastric bypass status for obesity DX:Gastric bypass status for obesity Knee pain DX:Knee pain Back pain DX:Back pain Systolic murmur DX:Systolic murm ur Seizure disorder ([facility] V2 4, [facility] V28) DX:Seizure disorder ([facility]) Bilateral hearing loss DX:Bilate ral hearing loss Bronchitis DX:Bronchitis Migraine DX:Migraine Scalp psoriasis DX:Scalp psorias is Bipolar 1 disorder (CMS/[facility] V24, [facility]/HCC V28) DX:Bipolar 1 disorder (HCC) Family [...] RESULTING AGENCY - 03/27/2020 12:15 PM EDT [id number] THINPREP PAP, IMAGED: NEGATIVE FOR SQUAMOUS INTRAEPITHELIAL [...] Recently Relevant to Health Maintenance Care Teams Inventory Controller Relationship Specialty Start Date End Date Kyra Driscoll MD [address] [phone] PCP - General Internal Medicine 08/13/21
--- OUTSIDE RECORDS SUMMARY | 2025-09-10 17:21 | XMS_ITS | Encounter Summary ---
Author Organization [employer] Address 75 [facility] 7t [place] [address] Care Team Providers Care Surgical Nurse Name Role Phone Kyra Driscoll MD Primary Care Provide r Elizabeth Dean NP Primary Care Provider [phone] Reason for Visit * Reason Comments Med Refill Encounter Details Date Type Department Care Team (Late st Contact Info) Description 06/07/2023 Refill [facility] CHC MED & PEDS [address] [place], [place] [phone] Kyra Driscoll MD 230 [place], [place] [phone] Chronic nausea; Allergy, subsequent encounter Social History [...] Description 09/16/2025 10:30 AM EST Office Visit [facility] MEDICINE 230 [place], [place] [phone] Porfirio Saldivar MD 230 [place], [place] [phone] 09/16/2025 2:00 PM EST Medication Management [address] [address] Juni Haji, PharmD [address] [place] [address] 10/14/2025 9:30 AM EST Clinical Support [address] [phone] Julia Lu, BEN 11/04/2025 1:45 PM EST Office Visit [address] [address] Elizabeth Dean NP [address] [place] [address] documented as of this encounter Visit Diagnoses Diagnosis Chronic nausea Nausea alone Allergy, subsequent encounter documented in this encounter Care Teams Surgical Nurse Relationship Specialty Start Date End Date Kyra Driscoll MD [address] [place] [address] PCP - General Family Medicine 06/03/19 03/03/24 Elizabeth Dean NP [address] [place] [address] PCP - General Family Medicine 02/25/25 documented as of this encounter
--- OUTSIDE RECORDS SUMMARY | 2025-09-10 17:21 | XMS_ITS | Encounter Summary ---
Author Organization [employer] Address [address] [place] [address] 7[place] [address] Care Team Providers Care Valet Cashier Name Role Phone Kyra Driscoll MD Primary Care Provide r Elizabeth Dean NP Primary Care Provider [phone] Reason for Visit * Reason Comments Med Refill Encounter Details Date Type Department Care Team (Late st Contact Info) Description 06/16/2023 Refill [facility] MEDICINE 230 [place], [place] [phone] Kyra Driscoll MD 230 [place], [place] [phone] Other muscle spasm Social History Tobacco Use [...] Description 09/16/2025 10:30 AM EST Office Visit [facility] MEDICINE 230 [place], [place] [phone] Porfirio Saldivar MD 230 [place], [place] [phone] 09/16/2025 2:00 PM EST Medication Management [address] [address] Juni Haji, PharmD 230 [place] [address] 10/14/2025 9:30 AM EST Clinical Support [address] [address] Julia Lu, BEN 11/04/2025 1:45 PM EST Office Visit [address] [address] Elizabeth Dean NP [address] [place] [address] documented as of this encounter Visit Diagnoses Diagnosis Other muscle spasm documented in this encounter Care Teams Valet Cashier Relationship Specialty Start Date End Date Kyra Driscoll MD [address] [place] [address] PCP - General Family Medicine 06/03/19 03/03/24 Elizabeth Dean NP [address] [place] [address] PCP - General Family Medicine 02/25/25 documented as of this encounter
--- OUTSIDE RECORDS SUMMARY | 2025-09-10 17:21 | XMS_ITS | Encounter Summary ---
Author Organization [employer] Address 75 [facility] 7t [place] [address] Care Team Providers Care Copy Cutter Name Role Phone Kyra Driscoll MD Primary Care Provide r Elizabeth Dean NP Primary Care Provider [phone] Reason for Visit * Reason Comments Med Refill Encounter Details Date Type Department Care Team (Late st Contact Info) Description 06/13/2023 Refill [facility] MEDICINE 230 [place], [place] [phone] Porfirio Saldivar MD 230 [place], [place] [phone] Uncomplicated opioid dependence (CMS/HCC) Social History Tobacco [...] Description 09/16/2025 10:30 AM EST Office Visit [facility] MEDICINE 230 [place], [place] [phone] Porfirio Saldivar MD 230 [place], [place] [phone] 09/16/2025 2:00 PM EST Medication Management [address] [address] Juni Haji, PharmD [address] [place] [address] 10/14/2025 9:30 AM EST Clinical Support [address] [address] Julia Lu, BEN 11/04/2025 1:45 PM EST Office Visit [address] [address] Elizabeth Dean NP [address] [place] [address] documented as of this encounter Visit Diagnoses Diagnosis Uncomplicated opioid dependence (CMS/HCC) (HCC) documented in this encounter Care Teams Copy Cutter Relationship Specialty Start Date End Date Kyra Driscoll MD [address] [place] [address] PCP - General Family Medicine 06/03/19 03/03/24 Elizabeth Dean NP [address] [place] [address] PCP - General Family Medicine 02/25/25 documented as of this encounter
--- OUTSIDE RECORDS SUMMARY | 2025-09-10 17:21 | XMS_ITS | Encounter Summary ---
Author Organization [employer] Address 75 [facility] 7t [place] [address] Care Team Providers Care Medication Administration Professional Name Role Phone Elizabeth Dean NP Primary Care Provider [phone] Reason for Visit * Reason Comments Med Refill Encounter Details Date Type Department Care Team ([facility] st Contact Info) Description 08/11/2025 Refill [facility] MEDICINE 230 [place], [place] [phone] Elizabeth Dean NP 230 [place], [place] [phone] Moderate persistent asthma without complication Social History [...] Description 09/16/2025 10:30 AM EST Office Visit [address] [address] Porfirio Saldivar MD [address] [place] [address] 09/16/2025 2:00 PM EST Medication Management [address] [address] Juni Haji, PharmD [address] [place] [address] 10/14/2025 9:30 AM EST Clinical Support [address] [address] Julia Lu, BEN 11/04/2025 1:45 PM EST Office Visit [address] [address] Elizabeth Dean NP [address] [place] [address] documented as of this encounter Visit Diagnoses Diagnosis Moderate persistent asthma without complication documented in this encounter Additional Health Concerns Assessment Noted Time PHQ-9 Depression Total Score: 20 025 7:51 AM EDT documented as of this encounter Care Teams Medication Administration Professional Relationship Specialty Start Date End Date Elizabeth Dean NP 230 [place] [address] PCP - General Family Medicine 02/25/25 documented as of this encounter
--- OUTSIDE RECORDS SUMMARY | 2025-09-10 17:21 | XMS_ITS | Encounter Summary ---
Author Organization [employer] Address 75 [facility] 7t [place] [address] Care Team Providers Care Knife Edger Name Role Phone Kyra Driscoll MD Primary Care Provide r Elizabeth Dean NP Primary Care Provider [phone] Reason for Visit * Reason Comments Med Refill Encounter Details Date Type Department Care Team (Late st Contact Info) Description 05/23/2023 Refill [facility] CHC MED & PEDS [address] [place], [place] [phone] Kyra Driscoll MD 230 [place], [place] [phone] Social History Tobacco Use Types Packs/Day Years [...] Description 09/16/2025 10:30 AM EST Office Visit [facility] MEDICINE 230 [place], [place] [phone] Porfirio Saldivar MD 230 [place], [place] [phone] 09/16/2025 2:00 PM EST Medication Management [address] [address] Juni Haji, PharmD 230 [place] [address] 10/14/2025 9:30 AM EST Clinical Support [address] [address] Julia Lu, BEN 11/04/2025 1:45 PM EST Office Visit [address] [address] Elizabeth Dean NP [address] [place] [address] documented as of this encounter Visit Diagnoses Not on filedocumented in this encounter Care Teams Knife Edger Relationship Specialty Start Date End Date Kyra Driscoll MD [address] [place] [address] PCP - General Family Medicine 06/03/19 03/03/24 Elizabeth Dean NP [address] [place] [address] PCP - General Family Medicine 02/25/25 documented as of this encounter
--- OUTSIDE RECORDS SUMMARY | 2025-09-10 17:21 | XMS_ITS | Encounter Summary ---
Author Organization [employer] Address 75 [facility] 7t [place] [address] Care Team Providers Care Shopper Marketing Manager Name Role Phone Kyra Driscoll MD Primary Care Provide r Elizabeth Dean NP Primary Care Provider [phone] Reason for Visit * Reason Comments Med Refill Encounter Details Date Type Department Care Team (Late Contact Info) Description 03/10/2023 Refill [facility] MEDICINE 230 [place], [place] [phone] Nurys Mcdonnell MD 230 [place], [place] [phone] Allergy, subsequent encounter Social History Tobacco Use [...] Upcoming Encounters Date Type Department Care Team ([facility] Contact Info) Description 09/16/2025 10:30 AM EST Office Visit [address] [address] Porfirio Saldivar MD [address] [place] [address] 09/16/2025 2:00 PM EST Medication Management [address] [address] Juni Haji, PharmD [address] [place] [address] 10/14/2025 9:30 AM EST Clinical Support [address] [address] Julia Lu RN 11/04/2025 1:45 PM EST Office Visit [address] [address] Elizabeth Dean NP [address] [place] [address] documented as of this encounter Visit Diagnoses Diagnosis Allergy, subsequent encounter documented in this encounter Care Teams Shopper Marketing Manager Relationship Specialty Start Date End Date Kyra Driscoll MD [address] [place] [address] PCP - General Family Medicine 06/03/19 03/03/24 Elizabeth Dean NP [address] [place] [address] PCP - General Family Medicine 02/25/25 documented as of this encounter
--- OUTSIDE RECORDS SUMMARY | 2025-09-10 17:22 | XMS_ITS | Clinical Summary ---
Author Organization [employer] Address [address] [facility] 7[address] [place] [address] Care Team Providers Care Brick Kiln Burner Name Role Phone Elizabeth Dean MARCO Primary Care Provider [phone] Allergies Active Allergy Reactions Criticality Noted Date [...] AT BEDTIME 023 Active Continuous Blood Gluc Data Modeling Specialist (FreeStyle Cindy 2 [place]) device USE DIRECTED 023 Active Continuous Blood [...] Take 240 mg by mouth. Active fluocinolone (Manley-Smoothe) 0.01 % external oil apply by topical [...] mouth every 12 (twelve) hours. Active pancrelipase, Ecx-Gnnx-Oirr, (Creon) 2877-7221 units capsule Take 1 capsule by mouth. [...] EVERY DAY 30 tablet 1 025 Active Vraylar 1.5 MG capsule TAKE 1 CAPSULE BY MOUTH ONCE DAILY 30 capsule 025 Active ondansetron (Zofran) 4 MG tabletIndication [...] OXcarbazepine (Trileptal) 600 MG tabletIndication s:Seizure (CMS/HCC) (HCC) Take 1 tablet (600 mg) by mouth 2 times daily. 60 tablet 2 025 Active ondansetron ODT (Zofran-ODT) 4 MG disintegrating tabletIndication s:Chronic nausea DISSOLVE 1 TABLET BY MOUTH EVERY TWELVE HOURS DIRECTED 30 tablet 1 Active montelukast (Singulair) 10 MG tabletIndication s:COPD (chronic obstructive pulmonary disease) with chronic bronchitis (CMS/HCC) ([facility]) Take 1 tablet (10 mg) by mouth [...] TO EMERGENCY ROOM 2 each 2 Active tiZANidine (Zanaflex) 4 MG tabletIndication s:Other muscle spasm TAKE 1 TABLET BY MOUTH EVERY 8 HOURS NEEDED, DO NOT EXCEED 3 TABLETS / DAY 90 tablet Active Suboxone 8-2 MG SL filmIndications: Uncomplicated opioid dependence (CMS/HCC) ([facility]) Place 1 Film under the tongue 3 times daily for 28 days. 84 Film 025 2024 Active OXcarbazepine (Trileptal) 600 MG tablet TAKE 1 TABLET BY MOUTH TWICE DAILY IN THE MORNING AND IN THE EVENING 023 2024 Discontinued( Reorder (will not trigger notification to Pharmacy)) montelukast (Singulair) 10 MG tabletIndication s:COPD (chronic obstructive pulmonary disease) with chronic bronchitis (CMS/HCC) ([facility]) Take 1 tablet (10 mg) by mouth [...] ONCE DAILY 30 capsule 025 2024 Discontinued prazosin (Minipress) 1 MG capsule TAKE 1 CAPSULE BY MOUTH EVERY DAY AT BEDTIME NEEDED ([facility]) 30 capsule 1 025 2024 Discontinued tiZANidine (Zanaflex) 4 MG tabletIndication s:Other muscle spasm TAKE 1 TABLET BY MOUTH EVERY 8 HOURS NEEDED. DO NOT EXCEED 3 TABLETS PER DAY. 90 tablet 025 2024 Discontinued Suboxone 8-2 MG SL filmIndications: Uncomplicated opioid dependence (CMS/HCC) ([facility]) Place 1 Film under the tongue 3 [...] 7 DAYS 20 tablet 025 2024 Discontinued Suboxone 8-2 MG SL filmIndications: Uncomplicated opioid dependence (CMS/HCC) ([facility]) Place 1 Film under the tongue 3 times daily for 28 days. 84 Film 025 2024 Discontinued( Reorder (will not trigger notification to Pharmacy)) tiZANidine (Zanaflex) 4 MG tabletIndication s:Other muscle spasm TAKE 1 TABLET BY MOUTH EVERY 8 HOURS NEEDED. DO NOT EXCEED 3 TABLETS PER DAY. 90 tablet 025 2024 Discontinued Active Problems Problem [...] reviewed with Dr. Heidi Foreman called to [facility] and pt transported via ambulance Seizures ([facility]) 02/28/2025 NARCISO positive 02/28/2025 Class 1 obesity [...] radiculopathy 01/13/2025 Mixed bipolar affective disorder, mild ([facility]) 01/13/2025 Assessment & Plan (04/07/2025 4:20 PM EDT): Referral to psychiatry, Renewed meds Multiple sclerosis 01/13/2025 Spasm 01/13/2025 Systemic lupus erythematosus ([facility]) Assessment & Plan (03/11/2025 11:55 AM EDT): [...] substernal chest pain 08/15 this morning now 10 found to be hypertensive with a new [...] has an open endo referral. I called [facility] endo. They said they recently lost 4 or 5 providers so they are booked out until October. They happened to have an open appointment MondayMarch 06 at 1545. [address], [address], [place]. I called patient and informed her of her appointment. Migraine headache 12/02/2022 Neck pain 12/02/2022 Obstructive sleep apnea syndrome 12/02/2022 Assessment & Plan (08/25/2025 1:04 PM EDT): Orders: Referral to Sleep Medicine; Future Pain in elbow 12/02/2022 Positive antinuclear antibody 12/02/2022 Rash 12/02/2022 Seropositive rheumatoid arthritis ([facility]) 11/07 Assessment & Plan (03/11/2025 11:55 AM [...] Dermatochalasis of both upper eyelids 03/15/2019 Seizure ([facility]) 03/15/2019 Assessment & Plan (08/25/2025 1:04 PM [...] obstructive pu lmonary disease) with chronic bronchitis ([facility]) 11/29/2017 Assessment & Plan (08/25/2025 1:04 PM [...] in early remission, on maintenance therapy, dependence ([facility]) 09/04/2015 Fibromyositis 04/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 Assessment & Plan (04/08/2025 [...] Encounters Date Type Department Care Team Description 09/08/2025 Refill [facility] [address] [place] [address] Julia Lu RN Uncomplicated opioid dependence (CMS/[facility]) ([facility]) 09/08/2025 Refill [facility] [address] [place] [address] Elizabeth Dean NP Other muscle spasm 09/03/2025 Refill [facility] [address] [place] [address] Elizabeth Dean NP Seasonal allergic rhinitis due to pollen; Allergy, subsequent encounter 09/01/2025 Telephone [facility] [address] [place] [address] Elizabeth Dean NP 08/29/2025 Telephone [facility] [address] [place] [address] Elizabeth Dean NP Durable Medical Equipment 08/28/2025 Patient Outreach [facility] [address] [facility] [place] [address] [facility] 08/28/2025 Telephone [facility] [address] [facility] [place] [address] Elizabeth Dean NP 08/25/2025 11:30 AM EDT Office Visit [facility] [address] [facility] [place] [address] Elizabeth Dean NP Acute right ankle pain (Primary Dx); Acute pain of right knee; Pre-diabetes; Hypoglycemia after GI (gastrointestinal) surgery; Seizure ([facility]) ([facility]); Moderate asthma without complication, unspecified whether persistent; Elevated blood pressure reading; Chronic nausea; COPD (chronic obstructive pulmonary disease) with chronic bronchitis ([facility]) ([facility]); Other migraine without status migrainosus, intractable; Incontinence in female; Obstructive sleep apnea syndrome; Morbid obesity ([facility]) ([facility]) 08/25/2025 Travel 08/25/2025 Refill [facility] [address] [facility] [place] [address] Torres Morillo MD 08/22/2025 Telephone [facility] Juan Daniel [facility] [place] [address] Elizabeth Dean NP chart prep 08/19/2025 9:30 AM EDT Clinical Support [facility] Juan Daniel [facility] [place] [address] Julia Lu RN Uncomplicated opioid dependence ([facility]) ([facility]) 08/19/2025 Travel 08/14/2025 Refill [facility] [address] [facility] [place] [address] Elizabeth Dean NP Other muscle spasm; Nausea; Anxiety 08/12/2025 Refill [facility] [address] [facility] [place] [address] Julia Lu, RN Uncomplicated opioid dependence ([facility]) ([facility]) 08/11/2025 Patient Outreach [facility] [address] [facility] [place] [address] Aron Hernández [facility] 08/11/2025 Refill [facility] [address] [place] [address] Elizabeth Dean NP Moderate persistent asthma without complication 08/06/2025 Refill [facility] [address] [place] [address] Elizabeth Dean NP Nausea; Anxiety 08/02/2025 Refill [facility] [address] [place] [address] Elizabeth Dean NP Seborrheic dermatitis; Major depressive disorder in full remission, unspecified whether recurrent ([facility]) 07/31/2025 Telephone [facility] [address] [place] [address] Elizabeth Dean NP Prior Authorization 07/31/2025 Telephone [facility] [address] [place] [address] Elizabeth Dean NP med b form 07/29/2025 Refill [facility] [address] [place] [address] Elizabeth Dean NP Moderate persistent asthma without complication 07/25/2025 Patient Outreach [address] [address] Bartolo Petit [facility] 07/22/2025 9:15 AM EDT Office Visit [address] [address] Porfirio Saldivar MD Uncomplicated opioid dependence ([facility]) (Primary Dx) 07/22/2025 Refill [facility] [address] [place] [address] Elizabeth Dean NP Allergy, subsequent encounter 07/22/2025 Travel 07/15/2025 Refill [facility] [address] [place] [address] Julia Lu RN Uncomplicated opioid dependence ([facility]) 07/03/2025 Telephone [facility] [address] [place] [address] Elizabeth Dean NP 07/03/2025 Telephone [facility] [address] [place] [address] Elizabeth Dean NP Per Elizabeth 07/02/2025 Refill [facility] [address] [place] [address] Elizabeth Dean NP Other muscle spasm 06/26/2025 Refill [facility] [address] [facility] [place] [address] Elizabeth Dean NP 06/24/2025 Results Follow-Up [address] [address] Elizabeth Dean NP Pap Smear, HPV High Risk with Reflex to Subtypes 06/23/2025 Refill [facility] [address] [place] [address] Porfirio Saldivar MD Hypoglycemia; Allergy, subsequent encounter; Neuropathic pain; IFG (impaired fasting glucose) 06/23/2025 Refill [facility] [address] [place] [address] Elizabeth Dean NP Hypoglycemia; Nausea; Anxiety; Other muscle spasm 06/23/2025 Refill [facility] [address] [place] [address] Torres Morillo MD 06/19/[address] [address] Julia Lu RN Med Refill; Durable Medical Equipment (Pt walked in staying the ankle brace she haves bothers her and is very uncomfortable. Pt is requesting a different ankle brace . ) 06/18/2025 Refill [facility] [address] [place] [address] Julia Lu RN Uncomplicated opioid dependence (CMS/HCC) 06/17/2025 10:00 AM EDT Clinical Support [address] [address] Julia Lu RN Uncomplicated opioid dependence (CMS/HCC) (Primary Dx) 06/17/2025 Travel 06/14/2025 Refill [facility] [address] [place], [place] [address]m[place] [address] Elizabeth Dean NP Major depressive disorder in full remission, unspecified whether recurrent (CMS/HCC) 06/13/2025 Refill [facility] [address] [place] [address] Torres Morillo MD 06/10/2025 1:00 PM EDT Procedure Visit [facility] [address] [place] [address] Elizabeth Dean NP Cervical cancer screening (Primary Dx); Breast screening; Seborrheic dermatitis; Primary osteoarthritis of right knee 06/10/2025 Telephone [facility] [address] [place] [address] Elizabeth Dean NP Durable Medical Equipment 06/10/2025 Refill [facility] [address] [place] [address] Elizabeth Dean NP Seborrheic dermatitis 06/10/2025 Refill [facility] [address] [place], [place] [phone] Julia Lu RN Uncomplicated opioid dependence ([facility]) 06/10/2025 Travel from Last 3 Months Immunizations Immunization Administration [...] Description 09/16/2025 10:30 AM EST Office Visit [facility] [address] [place] [address] Porfirio Saldivar MD [address] [place] [address] 09/16/2025 2:00 PM EST Medication Management [address] [address] Juni Haji, PharmD [address] [place] [address] 10/14/2025 9:30 AM EST Clinical Support [address] [phone] Julia Lu RN 11/04/2025 1:45 PM EST Office Visit [address] [phone] Elizabeth Dean NP [address] [place], [place] [phone] Health Maintenance Due Date Last Done Comments [...] AM EDT) Hemoglobin A1c 5.5 <6.0 % [facility] Comment:Hemoglobin A1C Refer ence Range Adults: 4.8 - 6.0 % Non diabetic: < 6.0 % Goal: < 7.0 %Additional Action Suggested: > 8.0 %Note: Hemoglobin A1c results are invalid for patients with abnormal amounts of HbF. Blood transfusions may impact the HbA1c concentration in the patient sample. Estimated Average Glucose 111 mg/dL [facility] Comment:eAG = Estimated ave rage glucose which is %A1C expressed asaverage glucose, using the formula of the C5B-NtpyuffVqsnwqd Glucose study (ADAG), Diabetes Care, Vol.31,#8,Jun. 2007 Blood Venous blood specimen / Unknown 08/27/2025 10:10 AM EDT 08/27/2025 11:26 AM EDT us Elizabeth Dean CONTRACTS LAW PROFESSOR LAB BLOOD ORDERABLES Final Resul t Performing Organization Address City/[facility]/ZIP Co de Phone Number [facility] [address] [place] [address] [phone] * (ABNORMAL) Comprehensive Metabolic Panel (08/27/2025 10:10 AM EDT) Sodium 143 135 - 145 mmol/L [facility] Potassium 3.5 3.3 - 5.1 mmol/L [facility] Chloride 108 96 - 108 mmol/L [facility] Carbon Dioxide 28 22 - 29 mmol/L [facility] Anion Gap 11(L) 12 - 20 [facility] Urea Nitrogen (BUN) 11 9 - 16 mg/dL [facility] Creatinine, Serum 0.69 0.5 - 1.4 mg/dL [facility] Estimated Glomerular Filt Rate >60 [facility] Comment:Chronic Kidney Disea se: Estimated GFR < 60 mL/min/1.92z1Rucwxt Kidney Disease: Estimated GFR < 15 mL/min/1.73m2 Glucose 121(H) 60 - 115 mg/dL [facility] Calcium 9.0 8.4 - 10.2 mg/dL [facility] Bilirubin, Total 0.4 0.0 - 1.0 mg/dL [facility] Aspartate Amino Transferase 37(H) 5 - 31 U/L [facility] Alanine Aminotransferase 14 0 - 31 U/L [facility] Total Protein 7.8 6.5 - 8.0 g/dL [facility] Albumin Level 4.6 3.5 - 5.0 g/dL [facility] Alkaline Phosphatase 132(H) 39 - 117 U/L [facility] Blood Venous blood specimen / Unknown 08/27/2025 10:10 AM EDT 08/27/2025 11:26 AM EDT us Elizabeth Dean CONTRACTS LAW PROFESSOR LAB BLOOD ORDERABLES Final Resul t [facility] [address] [place] [address] [phone] * (ABNORMAL) POCT PERLA-14 Urine Drug [...] procedure / Unknown 07/22/2025 9:47 AM EDT Porfirio Saldivar MD POINT OF CARE TEST ENTER/EDIT ORDERABLES Final Result * HPV High Risk with Reflex to Subtypes (06/10/2025 1:25 PM EDT) HPV High Risk Negative Negative [facility] HPV Genotype 16 Negative Negative [facility] HPV Genotype 18 Negative Negative [facility] Comment:HPV testing performe d at [facility] (CLIA#[id number]), [address] [place] [address].Testing for HPV was performed using the Osorio [...] NP LAB BLOOD ORDERABLES Final Resul t [facility] [address] [place] [phone] * Pap Smear (06/10/2025 1:25 PM EDT) Swab Cervix uteri structure / Unknown 06/10/2025 1:25 PM EDT 06/11/2025 8:30 AM EDT Narrative [facility] - 06/17/2025 8:19 AM EDT ----- ------- Name: Christie Ortiz Kal Age/Sex: 49/F : 1975 Unit#: [id number] Attend Dr: Elizabeth Dean CONTRACTS LAW PROFESSOR Re06/10/25 Status: DEP REF Location: [facility] Disch: ----- ------- SPEC : [id number] RECD: 06/11/25 STATUS: SUMMER GARCIA NUM: [id number] RADHA: 06/10/25-[address]: Eilzabeth Dean CONTRACTS LAW PROFESSOR ENTERED: 06/11/25 SP TYPE: Pap Smr OTHR DR: ORDERED: Pap Smear Interpretation Satisfactory for evaluation [...] and HPV testing will be performed at [facility] (CLIA #[id number]), [address] [place] [address]. Testing for HPV was performed using the [employer] system. The presence of HPV in the [...] detected. All professional services are performed by [facility] ([address] [place] [address]; ; CLIA #[id number]). The PAP Test is a screening procedure [...] 06/17/25 0819 ----- ------- END OF REPORT Elizabeth Dean NP LAB CYTOLOGY ORDERABLES Final Re sult Performing Organization Address [facility]/ZIP Co de Phone Number [facility] [address] [place] [address] [phone] * Hepatitis C Antibody with Reflex to HCV, RNA, Quantitative, Real-Time PCR (03/04/2025 10:16 AM EDT) Hepatitis C Antibody Nonreactive Nonreactive [facility] Comment:Antibodies to HCV no t detected; does not exclude early acuteHCV infection. Blood Venous blood specimen / Unknown 03/04/2025 10:16 AM EDT 03/04/2025 11:22 AM EDT Torres Morillo MD LAB BLOOD ORDERABLES Final Resul t Performing Organization Address [facility] Co de Phone Number [facility] [address] [place] [address] [phone] * HIV-1/2 Antigen and Antibodies, Fourth Generation, with Reflexes (03/04/2025 10:16 AM EDT) HIV AB/AG Nonreactive Nonreactive [facility] Comment:HIV-1 p24 Ag and/or HIV-1/HIV-2 Ab not detected.A test result that is nonreactive does not exclude thepossibility of exposure to or infection with HIV-1 and/orHIV-2. Nonreactive results in this assay for individualswith prior exposure to HIV-1 and/or HIV-2 may be due toantigen and antibody levels that are below the limit ofdetection of this assay.The Animating Touch HIV Ag/Ab Combo assay result andsupplemental assay results should be interpreted inconjunction with the patient's clinical presentation,history and other laboratory results. If the results areinconsistent with clinical evidence, additional testing issuggested to confirm the result. Blood Venous blood specimen / Unknown 03/04/2025 10:16 AM EDT 03/04/2025 11:22 AM EDT us Torres Morillo MD LAB BLOOD ORDERABLES Final Resul t [facility] [address] [place] [address] [phone] * Lipid Panel, Standard (03/01/2023 11:10 AM EDT) Cholesterol, Total 159 <200 mg/dL [facility] HDL Cholesterol 79 > OR = 50 mg/dL [facility] Triglycerides 44 <150 mg/dL [facility] LDL Cholesterol 67 mg/dL (calc) [facility] Comment: Reference range: <100 Desirable range <100 mg/dL for primary prevention; <70 mg/dL for patients with CHD or diabetic patients with > or = 2 CHD risk factors. LDL-C is now calculated using the Rayray-Oakes calculation, which is a validated novel method providing better accuracy than the Friedewald equation in the estimation of LDL-C. Rayray SS et al. GUILLAUME. 2013;310(19): 3637-9526 (http://education.Xendo/faq/NQK840) Chol/HDLC Ratio 2.0 <5.0 (calc) [facility] Non-HDL Cholesterol 80 <130 mg/dL (calc) [facility] Comment: For patients with diabetes plus 1 major ASCVD risk factor, treating to a non-HDL-C goal of <100 mg/dL (LDL-C of <70 mg/dL) is considered a therapeutic option. Blood Venous blood specimen / Unknown 03/01/2023 11:10 AM EDT 03/01/2023 11:11 AM EDT Narrative [facility] - 03/04/2023 6:21 AM EDT FASTING:NO FASTING: NO us Kyra Doyle MD LAB BLOOD ORDERABLES Final Result [facility] [address] [facility], [facility], [place] [address] [facility] [address] [place] [address] * Mammography Report 1 (09/16/2022 1:32 PM [...] Most Recently Relevant to Health Maintenance Insurance [facility] STAND[facility] MEDICARE Care Teams Brick Kiln Burner Relationship Specialty Start Date End Date Elizabeth Dean NP [address] [place] [phone] PCP - General Family Medicine 02/25/25
--- OUTSIDE RECORDS SUMMARY | 2025-09-10 17:22 | XMS_ITS | Clinical Summary ---
Author Organization [facility] Address [address] [facility] [address] [place] [address] Phone Care Team Providers Care Shoe Shanker Name Role Phone Mayra Nohemi Primary Care [...] file Insurance MEDICARE PART A & B [facility] MEDICARE PART A & B [facility] MEDICARE PART A & B [place] [facility] [place] & B Member Subscriber Plan / Payer ( fective 2017-Present) Name:Christie Ortiz Member ID:[id number] Relation to Subscriber:Self Name:Christie Ortiz Subscriber ID:[id number] Payer ID:[id number] Group ID:Not on file Type:Medicare Address: [employer] [address] [place] [phone] [place] & [place] B [facility] Care Teams Shoe Shanker Relationship Specialty Start Date End Date Nohemi Nunez DO [address] [place] [phone] PCP - General 11/09/17 Additional Source Comments The information contained in this document represents components of the legal health record. It is not the complete legal health record.[facility]
--- OUTSIDE RECORDS SUMMARY | 2025-09-10 17:22 | XMS_ITS | Encounter Summary ---
Author Organization [employer] Address [address] [facility] 7[address] [place] [address] Care Team Providers Care Punch Finisher Name Role Phone Elizabeth Dean NP Primary Care Provider [phone] Reason for Visit * Reason Comments Med Refill Encounter Details Date Type Department Care Team ([facility] Contact Info) Description 03/27/[address] [facility] [address] [place], [place] [phone] Elizabeth Dean NP [address] [place], [place] [phone] Other muscle spasm Social History Tobacco Use [...] Description 09/16/2025 10:30 AM EST Office Visit [address] [address] Porfirio Saldivar MD [address] [place] [address] 09/16/2025 2:00 PM EST Medication Management [address] [address] Juni Haji, HennyD [address] [place] [address] 10/14/2025 9:30 AM EST Clinical Support [address] [address] Julia Lu RN 11/04/2025 1:45 PM EST Office Visit [address] [place] [address] Elizabeth Dean NP [address] [place] [address] documented as of this encounter Visit Diagnoses Diagnosis Other muscle spasm documented in this encounter Additional Health Concerns Assessment Noted Time PHQ-9 Depression Total Score: 19 025 7:51 AM EDT documented as of this encounter Care Teams Punch Finisher Relationship Specialty Start Date End Date Elizabeth Dean NP [address] [place] [address] PCP - General Family Medicine 02/25/25 documented as of this encounter
--- OUTSIDE RECORDS SUMMARY | 2025-09-10 17:22 | XMS_ITS | Encounter Summary ---
Author Organization [employer] Address 75 [facility] 7t [place] [address] Care Team Providers Care Headwaiter/Headwaitress Name Role Phone Elizabeth Dean MARCO Primary Care Provider [phone] Reason for Visit * Reason Onset Date Comments Med Refill 09/08/2025 Encounter Details Date Type Department Care Team (Late st Contact Info) Description 09/08/2025 Refill [facility] MEDICINE 230 [place], [place] [phone] Julia Lu RN Uncomplicated opioid dependence (CMS/HCC) ([facility]) Social History Tobacco Use Types Packs/Day Years [...] Description 09/16/2025 10:30 AM EST Office Visit [address] [address] Porfirio Saldivar MD [address] [place] [address] 09/16/2025 2:00 PM EST Medication Management [address] [address] Juni Haji, PharmD [address] [place] [address] 10/14/2025 9:30 AM EST Clinical Support [address] [address] Julia Lu RN 11/04/2025 1:45 PM EST Office Visit [address] [address] Elizabeth Dean NP [address] [place] [address] documented as of this encounter Visit Diagnoses Diagnosis Uncomplicated opioid dependence (CMS/HCC) (HCC) documented in this encounter Additional Health Concerns Assessment Noted Time PHQ-9 Depression Total Score: 20 025 7:51 AM EDT documented as of this encounter Care Teams Headwaiter/Headwaitress Relationship Specialty Start Date End Date Elizabeth Dean NP 230 [place] [address] PCP - General Family Medicine 02/25/25 documented as of this encounter
--- OUTSIDE RECORDS SUMMARY | 2025-09-10 17:22 | XMS_ITS | Encounter Summary ---
Author Organization [employer] Address 75 [facility] 7t [place] [address] Care Team Providers Care Fire Prevention Specialist Name Role Phone Elizabeth Dean NP Primary Care Provider [phone] Reason for Visit * Reason Comments Med Refill Encounter Details Date Type Department Care Team ([facility] Contact Info) Description 09/08/2025 Refill [facility] MEDICINE 230 [place], [place] [phone] Elizabeth Dean NP 230 [place], [place] [phone] Other muscle spasm Social History Tobacco Use [...] 09/16/2025 10:30 AM EST Office Visit [address] [address] Porfirio Saldivar MD [address] [place] [address] 09/16/2025 2:00 PM EST Medication Management [address] [address] Juni Haji, PharmD [address] [place] [address] 10/14/2025 9:30 AM EST Clinical Support [address] [address] Julia Lu, BEN 11/04/2025 1:45 PM EST Office Visit [address] [address] Elizabeth Dean NP [address] [place] [address] documented as of this encounter Visit Diagnoses Diagnosis Other muscle spasm documented in this encounter Additional Health Concerns Assessment Noted Time PHQ-9 Depression Total Score: 20 025 7:51 AM EDT documented as of this encounter Care Teams Fire Prevention Specialist Relationship Specialty Start Date End Date Elizabeth Dean NP 230 [place] [address] PCP - General Family Medicine 02/25/25 documented as of this encounter
--- OUTSIDE RECORDS SUMMARY | 2025-09-10 17:22 | XMS_ITS | Encounter Summary ---
Author Organization [employer] Address 75 [facility] 7t [place] [address] Care Team Providers Care Cytology Teacher Name Role Phone Elizabeth Dean MARCO Primary Care Provider [phone] Reason for Visit * Reason Comments Med Refill Encounter Details Date Type Department Care Team ([facility] st Contact Info) Description 03/25/2025 Refill [facility] MEDICINE 230 [place], [place] [phone] Porfirio Saldivar MD 230 [place], [place] [phone] Uncomplicated opioid dependence (CMS/HCC) Social History Tobacco [...] Description 09/16/2025 10:30 AM EST Office Visit [address] [address] Porfirio Saldivar MD [address] [place] [address] 09/16/2025 2:00 PM EST Medication Management [address] [address] Juni Haji, PharmD [address] [place] [address] 10/14/2025 9:30 AM EST Clinical Support [address] [address] Julia Lu RN 11/04/2025 1:45 PM EST Office Visit [address] [address] Elizabeth Dean NP [address] [place] [address] documented as of this encounter Visit Diagnoses Diagnosis Uncomplicated opioid dependence (CMS/HCC) (HCC) documented in this encounter Additional Health Concerns Assessment Noted Time PHQ-9 Depression Total Score: 19 025 7:51 AM EDT documented as of this encounter Care Teams Cytology Teacher Relationship Specialty Start Date End Date Elizabeth Dean NP 230 [place] [address] PCP - General Family Medicine 02/25/25 documented as of this encounter
== END 2025-09-10 14:55 | disposition home or self-care (01) ==
LOC: HO.HPODS 14:13
PROVIDERS: PCP Internal Medicine; Visit Provider Student in an Organized Health Care Education/Training Program
DX: M25.571 Pain in right ankle and joints of right foot (principal); G89.29 Other chronic pain; S93.401A Sprain of unspecified ligament of right ankle, initial encounter; M25.373 Other instability, unspecified ankle
CPT/HCPCS: 99204

== ENCOUNTER → 2025-09-10 14:12 | Outpatient (BNVA) | payer MEDICARE, MEDICAID, SELFPAY | PROVIDERS: PCP Internal Medicine; Visit Provider Student in an Organized Health Care Education/Training Program | DX: S93.401A Sprain of unspecified ligament of right ankle, initial encounter (principal); M25.571 Pain in right ankle and joints of right foot; G89.29 Other chronic pain; M25.373 Other instability, unspecified ankle; X58.XXXA Exposure to other specified factors, initial encounter; Y93.9 Activity, unspecified; Y92.9 Unspecified place or not applicable; Y99.9 Unspecified external cause status | CPT/HCPCS: 99202 ==

== ENCOUNTER 2025-09-16 11:06 | Outpatient (REF) | payer MEDICARE, MEDICAID, SELFPAY ==
--- NOTE | ~2025-09-16 | XR_ITS ---
EXAMINATION: XR KNEE, LEFT CLINICAL INFORMATION: M05.9 - Rheumatoid arthritis with rheumatoid factor, unspecified COMPARISON: Previous x-ray May 2020 TECHNIQUE: Four views of the left knee. FINDINGS: Bone alignment is normal. No fracture or dislocation. Mild medial femoral tibial joint space narrowing. Joint spaces otherwise normal. No erosions. No joint effusion. XR/XR knee LT 3V IMPRESSION: Mild medial femoral tibial joint space narrowing. Electronically signed by: Gricelda Shah MD 09/16/2025 03:50 PM EST
--- NOTE | ~2025-09-16 | XR_ITS ---
EXAMINATION: XR HIP, LEFT CLINICAL INFORMATION: M05.9 - Rheumatoid arthritis with rheumatoid factor, unspecified COMPARISON: Correlated to CT abdomen pelvis dated May 22, 2019. TECHNIQUE: AP and oblique views of the left hip. FINDINGS: Sclerosis along the articular surface of the acetabulum. Subchondral cyst formation left acetabulum. Asymmetric joint space narrowing. No acute fracture or dislocation. No lytic or blastic lesions. XR/XR hip LT min 2V IMPRESSION: Mild osteoarthrosis/osteoarthritis, left hip. Electronically signed by: Andrew Parks MD 09/16/2025 03:33 PM EST
--- NOTE | ~2025-09-16 | XR_ITS ---
EXAMINATION: XR ANKLE, right CLINICAL INFORMATION: M25.571 - Pain in right ankle and joints of right foot COMPARISON: July 05, 2021 TECHNIQUE: AP, lateral, and mortise views lower extremity joint, ankle. FINDINGS: Ankle mortise is congruent. There is no widening of the syndesmosis. Talar dome is intact. There is a calcaneal enthesophyte(s). Marginal osteophyte is present at the medial malleolar tip, similar to the prior. XR/XR ankle RT min 3V IMPRESSION: Mild degenerative change in the medial ankle joint, similar to the prior. Electronically signed by: Garcia Ortiz MD 09/16/2025 03:32 PM EST
--- NOTE | ~2025-09-16 | XR_ITS ---
EXAMINATION: XR WRIST, RIGHT CLINICAL INFORMATION: M05.9 - Rheumatoid arthritis with rheumatoid factor, unspecified COMPARISON: None available. TECHNIQUE: PA, lateral, and oblique views of the right wrist. FINDINGS: No fracture or dislocation. No significant joint space narrowing or marginal osteophytes. No osseous erosion. No abnormal soft tissue calcification. XR/XR wrist RT min 3V IMPRESSION: No significant osseous findings. Electronically signed by: Alban Monsalve MD 09/16/2025 03:49 PM [facility]
--- NOTE | ~2025-09-16 | XR_ITS ---
EXAMINATION: XR HIP, RIGHT CLINICAL INFORMATION: M05.9 - Rheumatoid arthritis with rheumatoid factor, unspecified COMPARISON: Correlated to CT abdomen pelvis dated May 22, 2019. TECHNIQUE: AP and oblique views of the right hip. FINDINGS: Sclerosis and the articular surface of the right acetabulum with subchondral cyst formation. Asymmetric joint space narrowing. No acute fracture or dislocation. No lytic or blastic lesions. XR/XR hip RT min 2V IMPRESSION: Mild osteoarthrosis/osteoarthritis, right hip. Electronically signed by: Andrew Parks MD 09/16/2025 03:34 PM EST
--- NOTE | ~2025-09-16 | XR_ITS ---
EXAMINATION: XR WRIST, LEFT CLINICAL INFORMATION: M05.9 - Rheumatoid arthritis with rheumatoid factor, unspecified COMPARISON: August 19, 2022 TECHNIQUE: PA, lateral, and oblique views of the left wrist. FINDINGS: There is vague lucency at the ulnar base of the fifth metacarpal and adjacent hamate that appears unchanged when compared to the prior study. Minimal cystic lucency of the radial styloid tip is also stable. There is stable vague subtle lucency at the distal ulnar side of the scaphoid tuberosity. No new erosions are identified. XR/XR wrist LT min 3V IMPRESSION: Mild changes of inflammatory arthropathy in remission. Electronically signed by: Garcia Ortiz MD 09/16/2025 03:47 PM EST
--- NOTE | ~2025-09-16 | XR_ITS ---
EXAMINATION: XR LUMBOSACRAL SPINE WITH OBLIQUES CLINICAL INFORMATION: M05.9 - Rheumatoid arthritis with rheumatoid factor, unspecified COMPARISON: January 09, 2021. TECHNIQUE: AP oblique and lateral views. FINDINGS: Metallic hardware placed through the trans pedicle screws secured with rods from L4 to S1. Intervertebral disc spacer placement. No acute cortical disruption or gross malalignment. No lytic or blastic lesions. Small marginal osteophyte formation and mild endplate sclerosis and the upper lumbar spine. XR/XR lumbar spine 4V min IMPRESSION: Status post posterior fusion L4 S1 with intact hardware and no acute fracture or listhesis. Electronically signed by: Andrew Parks MD 09/16/2025 03:32 PM EST
--- NOTE | ~2025-09-16 | XR_ITS ---
EXAMINATION: XR KNEE, RIGHT CLINICAL INFORMATION: M05.9 - Rheumatoid arthritis with rheumatoid factor, unspecified COMPARISON: Previous x-ray January 2021 TECHNIQUE: 3 views of the right knee. FINDINGS: Bone alignment is normal. No fracture or dislocation. Mild osteopenia. Normal joint spaces. No erosions. Soft tissue calcification adjacent to the lateral femoral condyle likely related to old trauma new from previous exam. No joint effusion. XR/XR knee RT 3V IMPRESSION: Osteopenia. New small soft tissue calcification adjacent to the lateral femoral condyle probably related to old trauma. Electronically signed by: Gricelda Shah MD 09/16/2025 03:48 PM EST
--- NOTE | ~2025-09-16 | XR_ITS ---
Exam: XR HAND 3 VIEWS BILATERAL, bilateral hand x-rays TECHNIQUE: AP, lateral, and oblique views upper extremity, bilateral hands INDICATION: M05.9 - Rheumatoid arthritis with rheumatoid factor, unspecified COMPARISON: August 19, 2022 FINDINGS: RIGHT HAND: Joint spaces are preserved. There is bilateral cystic lucency with sclerotic margin in the volar radial aspect of the fourth or carpal heads that was vaguely evident on the prior study and probably represents an erosion in remission. There is also lucency with sclerotic margins involving the ulnar base of the fourth proximal phalanx, possibly the third, also consistent with erosion in remission. LEFT HAND: Stable cystic changes with sclerotic margin is present in the radial radial and volar aspect of the fourth metacarpal head. A lucency at the ulnar base of the second proximal phalanx is unchanged. No active erosions are identified. XR/XR Hand Bilat min 3v IMPRESSION: Right hand: Changes consistent with rheumatoid arthritis in remission. Left hand: Changes consistent with rheumatoid arthritis in remission. Electronically signed by: Garcia Ortiz MD 09/16/2025 03:45 PM EST
--- OUTSIDE RECORDS SUMMARY | 2025-09-16 10:30 | XMS_ITS | Encounter Summary ---
Author Organization [employer] Address 75 [facility] 7t [place] [address] Care Team Providers Care Health Promotion Specialist Name Role Phone Elizabeth Dean MARCO Primary Care Provider [phone] Reason for Visit * Reason Comments OBAT F/U Encounter Details Date Type Department Care Team (Latest Contact Info) Description 09/16/2025 10:30 AM EST Office Visit [facility] MEDICINE 230 [place], [place] [phone] Porfirio Saldivar MD 230 [place], [place] [phone] Uncomplicated opioid dependence (CMS/HCC) (HCC) (Primary Dx) Social History Tobacco Use Types [...] Team (Late st Contact Info) Description 09/16/2025 2:00 PM EST Medication Management [address] [address] Juni Haji, PharmD [address] [place] [address] 11/04/2025 1:45 PM EST Office Visit [address] [address] Elizabeth Dean NP [address] [place] [address] 11/11/2025 9:30 AM EST Clinical Support [address] [address] Julia Lu, BEN documented as of this encounter Visit Diagnoses Diagnosis Uncomplicated opioid dependence (CMS/HCC) (HCC)- Primary documented in this encounter Additional Health Concerns Assessment Noted Time PHQ-9 Depression Total Score: 20 025 7:51 AM EDT documented as of this encounter Care Teams Health Promotion Specialist Relationship Specialty Start Date End Date Elizabeth Dean NP [address] [place] [address] PCP - General Family Medicine 02/25/25 documented as of this encounter
--- OUTSIDE RECORDS SUMMARY | 2025-09-16 13:16 | XMS_ITS | Encounter Summary ---
Author Organization [employer] Address [address] [place] [address] 7[place] [address] Care Team Providers Care Oil Truck Driver Name Role Phone Kyra Driscoll MD Primary Care Provide r Elizabeth Dean NP Primary Care Provider [phone] Reason for Visit * Reason Comments Med Refill Encounter Details Date Type Department Care Team (Late st Contact Info) Description 06/16/2023 Refill [facility] MEDICINE 230 [place], [place] [phone] Kyra Driscoll MD 230 [place], [place] [phone] Other muscle spasm Social History Tobacco Use [...] Description 09/16/2025 2:00 PM EST Medication Management [facility] MEDICINE 230 [place], [place] [phone] Juni Haji, PharmD 230 [place], [place] [phone] 11/04/2025 1:45 PM EST Office Visit [address] [address] Elizabeth Dean [place] [address] 11/11/2025 9:30 AM EST Clinical Support [address] [address] Julia Lu RN documented as of this encounter Visit Diagnoses Diagnosis Other muscle spasm documented in this encounter Care Teams Oil Truck Driver Relationship Specialty Start Date End Date Kyra Driscoll MD [address] [place] [address] PCP - General Family Medicine 06/03/19 03/03/24 Elizabeth Dean NP [address] [place] [address] PCP - General Family Medicine 02/25/25 documented as of this encounter
--- OUTSIDE RECORDS SUMMARY | 2025-09-16 13:16 | XMS_ITS | Encounter Summary ---
Author Organization [employer] Address 75 [facility] 7t [place] [address] Care Team Providers Care Architectural Administrative Assistant Name Role Phone Kyra Driscoll MD Primary Care Provide r Elizabeth Dean NP Primary Care Provider [phone] Reason for Visit * Reason Comments Med Refill Encounter Details Date Type Department Care Team ([facility] st Contact Info) Description 02/25/2023 Refill [facility] MEDICINE 230 [place], [place] [phone] Porfirio Saldivar MD 230 [place], [place] [phone] Uncomplicated opioid dependence (CMS/HCC) Social History Tobacco [...] Description 09/16/2025 2:00 PM EST Medication Management [address] [address] Juni Haji, HennyD [address] [place] [address] 11/04/2025 1:45 PM EST Office Visit [address] [address] Elizabeth Dean NP [address] [place] [address] 11/11/2025 9:30 AM EST Clinical Support [address] [address] Julia Lu RN documented as of this encounter Visit Diagnoses Diagnosis Uncomplicated opioid dependence (CMS/HCC) (HCC) documented in this encounter Care Teams Architectural Administrative Assistant Relationship Specialty Start Date End Date Kyra Driscoll MD [address] [place] [address] PCP - General Family Medicine 06/03/19 03/03/24 Elizabeth Dean NP [address] [place] [address] PCP - General Family Medicine 02/25/25 documented as of this encounter
--- OUTSIDE RECORDS SUMMARY | 2025-09-16 13:16 | XMS_ITS | Encounter Summary ---
Author Organization [employer] Address 75 [facility] 7t [place] [address] Care Team Providers Care Nurse Practitioner Manager Name Role Phone Kyra Driscoll MD Primary Care Provide r Elizabeth Dean NP Primary Care Provider [phone] Reason for Visit * Reason Comments Med Refill Encounter Details Date Type Department Care Team ([facility] Contact Info) Description 02/06/2023 Refill [facility] MEDICINE 230 [place] [address] Rachel Cash FNP 505 [place] [address] IFG (impaired fasting glucose); Uncomplicated opioid dependence [...] Upcoming Encounters Date Type Department Care Team ([facility] Contact Info) Description 09/16/2025 2:00 PM EST Medication Management [address] [address] Juni Haji, Liliana [address] [place] [address] 11/04/2025 1:45 PM EST Office Visit [address] [address] Elizabeth Dean NP [address] [place] [address] 11/11/2025 9:30 AM EST Clinical Support [address] [address] Julia Lu RN documented as of this encounter Visit Diagnoses Diagnosis IFG (impaired fasting glucose) Uncomplicated opioid dependence (CMS/HCC) (HCC) documented in this encounter Care Teams Nurse Practitioner Manager Relationship Specialty Start Date End Date Kyra Driscoll MD [address] [place] [address] PCP - General Family Medicine 06/03/19 03/03/24 Elizabeth Dean NP [address] [place] [address] PCP - General Family Medicine 02/25/25 documented as of this encounter
--- OUTSIDE RECORDS SUMMARY | 2025-09-16 13:16 | XMS_ITS | Encounter Summary ---
Author Organization [employer] Address 75 [facility] 7t [place] [address] Care Team Providers Care Cheese Cutter Name Role Phone Elizabeth Dean NP Primary Care Provider [phone] Reason for Visit * Reason Comments Med Refill Encounter Details Date Type Department Care Team ([facility] st Contact Info) Description 08/11/2025 Refill [facility] MEDICINE 230 [place], [place] [phone] Elizabeth Dean NP 230 [place], [place] [phone] Moderate persistent asthma without complication Social History [...] Description 09/16/2025 2:00 PM EST Medication Management [address] [address] Juni Haji, HennyD [address] [place] [address] 11/04/2025 1:45 PM EST Office Visit [address] [address] Elizabeth Dean NP [address] [place] [address] 11/11/2025 9:30 AM EST Clinical Support [address] [address] Julia Lu, BEN documented as of this encounter Visit Diagnoses Diagnosis Moderate persistent asthma without complication documented in this encounter Additional Health Concerns Assessment Noted Time PHQ-9 Depression Total Score: 20 025 7:51 AM EDT documented as of this encounter Care Teams Cheese Cutter Relationship Specialty Start Date End Date Elizabeth Dean NP [address] [place] [address] PCP - General Family Medicine 02/25/25 documented as of this encounter
--- OUTSIDE RECORDS SUMMARY | 2025-09-16 13:16 | XMS_ITS | Encounter Summary ---
Author Organization [employer] Address 75 [facility] 7t [place] [address] Care Team Providers Care Interventional Physiatrist Name Role Phone Kyra Driscoll MD Primary Care Provide r Elizabeth Dean NP Primary Care Provider [phone] Reason for Visit * Reason Onset Date Comments Durable Medical Equipment 03/28/2023 Encounter Details Date Type Department Care Team (Late st Contact Info) Description 03/28/2023 Telephone [facility] MEDICINE 230 [place], [place] [phone] Kyra Driscoll MD 230 [place], [place] [phone] Durable Medical Equipment Social History Tobacco Use [...] Description 09/16/2025 2:00 PM EST Medication Management [address] [address] Juni Haji, PharmD [address] [place] [address] 11/04/2025 1:45 PM EST Office Visit [address] [address] Elizabeth Dean NP [address] [place] [address] 11/11/2025 9:30 AM EST Clinical Support [address] [address] Julia Lu RN documented as of this encounter Visit Diagnoses Not on filedocumented in this encounter Care Teams Interventional Physiatrist Relationship Specialty Start Date End Date Kyra Driscoll MD [address] [place] [address] PCP - General Family Medicine 06/03/19 03/03/24 Elizabeth Dean NP [address] [place] [address] PCP - General Family Medicine 02/25/25 documented as of this encounter
--- OUTSIDE RECORDS SUMMARY | 2025-09-16 13:16 | XMS_ITS | Encounter Summary ---
Author Organization [employer] Address 75 [facility] 7t [place] [address] Care Team Providers Care Rand Butting Machine Operator Name Role Phone Kyra Driscoll MD Primary Care Provide r Elizabeth Dean NP Primary Care Provider [phone] Reason for Visit * Reason Comments Med Refill Encounter Details Date Type Department Care Team ([facility] Contact Info) Description 04/22/2023 Refill [facility] MEDICINE 230 [place], [place] [phone] Kyra Driscoll MD 230 [place], [place] [phone] Moderate persistent asthma without complication Social History [...] Upcoming Encounters Date Type Department Care Team ([facility] Contact Info) Description 09/16/2025 2:00 PM EST Medication Management [address] [address] Juni Haji, HennyD 230 [place] [address] 11/04/2025 1:45 PM EST Office Visit [address] [address] Elizabeth Dean NP [address] [place] [address] 11/11/2025 9:30 AM EST Clinical Support [address] [address] Julia Lu RN documented as of this encounter Visit Diagnoses Diagnosis Moderate persistent asthma without complication documented in this encounter Care Teams Rand Butting Machine Operator Relationship Specialty Start Date End Date Kyra Driscoll MD [address] [place] [address] PCP - General Family Medicine 06/03/19 03/03/24 Elizabeth Dean NP [address] [place] [address] PCP - General Family Medicine 02/25/25 documented as of this encounter
--- OUTSIDE RECORDS SUMMARY | 2025-09-16 13:16 | XMS_ITS | Encounter Summary ---
Author Organization [facility] Address [address] [facility] [address] [place] [address] Phone Care Team Providers Care Sales Engineer Account Manager Name Role Phone Nohemi Nunez DO Primary Care Provider Encounter Details Date Type Department Care Team (Late st Contact Info) Description 01/15/2018 Ancillary Orders [facility] [address] [place] [address] [place], [place] [phone] Kyle Lundberg DO [address] [place] [address] Tachycardia Social History Tobacco Use Types Packs/Day [...] tachycardia documented in this encounter Care Teams Sales Engineer Account Manager Relationship Specialty Start Date End Date Nohemi Nunez DO [address] [place] [address] PCP - General 11/09/17 documented as of this encounter Additional Source Comments The information contained in this document represents components of the legal health record. It is not the complete legal health record.[facility]
--- OUTSIDE RECORDS SUMMARY | 2025-09-16 13:16 | XMS_ITS | Encounter Summary ---
Author Organization [employer] Address 75 [facility] 7t [place] [address] Care Team Providers Care Principal Technical Specialist Name Role Phone Elizabeth Dean NP Primary Care Provider [phone] Encounter Details Date Type Department Care Team ([facility] st Contact Info) Description 09/12/2025 Telephone [facility] MEDICINE 230 [place], [place] [phone] Elizabeth Dean NP 230 [place], [place] [phone] Social History Tobacco Use Types Packs/Day Years [...] Telephone Encounter - Kasia Moran LPN - 09/12/2025 1:41 PM EST 3rd TC to Hoda Haji regarding Pt's recently submitted request. No answer. LVM documented in this encounter Plan of Treatment Upcoming Encounters Date Type Department Care Team (Late st Contact Info) Description 09/16/2025 2:00 PM EST Medication Management [address] [address] Juni Haji, PharmD 230 [place] [address] 11/04/2025 1:45 PM EST Office Visit [address] [address] Elizabeth Dean, MARCO 230 [place] [address] 11/11/2025 9:30 AM EST Clinical Support [address] [address] Julia Lu, BEN documented as of this encounter Visit Diagnoses Not on filedocumented in this encounter Additional Health Concerns Assessment Noted Time PHQ-9 Depression Total Score: 20 025 7:51 AM EDT documented as of this encounter Care Teams Principal Technical Specialist Relationship Specialty Start Date End Date Elizabeth Dean NP [address] [place] [address] PCP - General Family Medicine 02/25/25 documented as of this encounter
--- OUTSIDE RECORDS SUMMARY | 2025-09-16 13:16 | XMS_ITS | Encounter Summary ---
Author Organization [employer] Address [address] [place] [address] 7t [place] [address] Care Team Providers Care Slasher Name Role Phone Kyra Driscoll MD Primary Care Provide r Elizabeth Dean NP Primary Care Provider [phone] Reason for Visit * Reason Comments Med Refill Encounter Details Date Type Department Care Team (Late st Contact Info) Description 05/23/2023 Refill [facility] MEDICINE 230 [place], [place] [phone] Nurys Mcdonnell MD 230 [place], [place] [phone] COPD (chronic obstructive pulmonary disease) with chronic bronchitis ([facility]/HCC) Social History Tobacco Use Types Packs/Day Years [...] Care Team (Late Contact Info) Description 09/16/2025 2:00 PM EST Medication Management [facility] MEDICINE 230 [place], [place] [phone] Juni Haji, HennyD 230 [place], [place] [phone] 11/04/2025 1:45 PM EST Office Visit [address] [address] Elizabeth Dean NP [address] [place] [address] 11/11/2025 9:30 AM EST Clinical Support [address] [address] Julia Lu RN documented as of this encounter Visit Diagnoses Diagnosis COPD (chronic obstructive pulmonary disease) with chronic bronchitis (CMS/HCC) (HCC) documented in this encounter Care Teams Slasher Relationship Specialty Start Date End Date Kyra Driscoll MD [address] [place] [address] PCP - General Family Medicine 06/03/19 03/03/24 Elizabeth Dean NP [address] [place] [address] PCP - General Family Medicine 02/25/25 documented as of this encounter
--- OUTSIDE RECORDS SUMMARY | 2025-09-16 13:16 | XMS_ITS | Encounter Summary ---
Author Organization [employer] Address 75 [facility] 7t [place] [address] Care Team Providers Care Tube Blower Name Role Phone Elizabeth Dean NP Primary Care Provider [phone] Reason for Visit * Reason Onset Date Comments Error (VOID this visit) 09/11/2025 Entered in error Encounter Details Date Type Department Care Team ([facility] st Contact Info) Description 09/11/2025 Telephone [facility] MEDICINE 230 [place], [place] [phone] Elizabeth Dean NP 230 [place], [place] [phone] Error (VOID this visit) (Entered in error/) Social History Tobacco Use Types Packs/Day Years [...] Description 09/16/2025 2:00 PM EST Medication Management [address] [address] Juni Haji, PharmD [address] [place] [address] 11/04/2025 1:45 PM EST Office Visit [address] [address] Elizabeth Dean NP [address] [place] [address] 11/11/2025 9:30 AM EST Clinical Support [address] [address] Julia Lu RN documented as of this encounter Visit Diagnoses Not on filedocumented in this encounter Additional Health Concerns Assessment Noted Time PHQ-9 Depression Total Score: 20 025 7:51 AM EDT documented as of this encounter Care Teams Tube Blower Relationship Specialty Start Date End Date Elizabeth Dean NP [address] [place] [address] PCP - General Family Medicine 02/25/25 documented as of this encounter
--- OUTSIDE RECORDS SUMMARY | 2025-09-16 13:16 | XMS_ITS | Encounter Summary ---
Author Organization [employer] Address 75 [facility] 7t [place] [address] Care Team Providers Care Driver Guard Name Role Phone Kyra Driscoll MD Primary Care Provide r Elizabeth Dean NP Primary Care Provider [phone] Reason for Visit * Reason Comments Med Refill Encounter Details Date Type Department Care Team (Late Contact Info) Description 04/17/2023 Refill [facility] [address] [place], [place] [phone] [facility] [address] [place] [address] Iron deficiency Social History Tobacco Use Types [...] Description 09/16/2025 2:00 PM EST Medication Management [address] [address] Juni Haji, PharmD 230 [place] [address] 11/04/2025 1:45 PM EST Office Visit [address] [address] Elizabeth Dean NP [address] [place] [address] 11/11/2025 9:30 AM EST Clinical Support [address] [address] Julia Lu RN documented as of this encounter Visit Diagnoses Diagnosis Iron deficiency Disorders of iron metabolism documented in this encounter Care Teams Driver Guard Relationship Specialty Start Date End Date Kyra Driscoll MD [address] [place] [address] PCP - General Family Medicine 06/03/19 03/03/24 Elizabeth Dean NP [address] [place] [address] PCP - General Family Medicine 02/25/25 documented as of this encounter
--- OUTSIDE RECORDS SUMMARY | 2025-09-16 13:16 | XMS_ITS | Encounter Summary ---
Author Organization [employer] Address 75 [facility] 7t [place] [address] Care Team Providers Care Diving Supervisor Name Role Phone Kyra Driscoll MD Primary Care Provide r Elizabeth Dean NP Primary Care Provider [phone] Reason for Visit * Reason Comments Med Refill Encounter Details Date Type Department Care Team (Late Contact Info) Description 03/15/2023 Refill [facility] MED & PEDS [address] [place], [place] [phone] Nurys Mcdonnell MD 230 [place] [address] Other migraine without status migrainosus, not intractable [...] Upcoming Encounters Date Type Department Care Team ([facility] Contact Info) Description 09/16/2025 2:00 PM EST Medication Management [address] [address] Juni Haji, HennyD [address] [place] [address] 11/04/2025 1:45 PM EST Office Visit [address] [address] Elizabeth Dean NP [address] [place] [address] 11/11/2025 9:30 AM EST Clinical Support [address] [address] Julia Lu RN documented as of this encounter Visit Diagnoses Diagnosis Other migraine without status migrainosus, not intractable documented in this encounter Care Teams Diving Supervisor Relationship Specialty Start Date End Date Kyra Driscoll MD [address] [place] [address] PCP - General Family Medicine 06/03/19 03/03/24 Elizabeth Dean NP [address] [place] [address] PCP - General Family Medicine 02/25/25 documented as of this encounter
--- OUTSIDE RECORDS SUMMARY | 2025-09-16 13:16 | XMS_ITS | Encounter Summary ---
Author Organization [employer] Address 75 [facility] 7t [place] [address] Care Team Providers Care Seamer Operator Name Role Phone Kyra Driscoll MD Primary Care Provide r Elizabeth Dean NP Primary Care Provider Reason for Visit * Reason Comments Med Refill Encounter Details Date Type Department Care Team (Late Contact Info) Description 06/07/2023 Refill [facility] MEDICINE 230 [place], [place] [phone] Rachel Cash FNP 505 [place], [place] [phone] Allergy, subsequent encounter Social History Tobacco Use [...] Description 09/16/2025 2:00 PM EST Medication Management [facility] 230 [place], [place] [phone] Juni Haji, PharmD 230 [place], [place] [phone] 11/04/2025 1:45 PM EST Office Visit [address] [address] Elizabeth Dean NP [address] [place] [address] 11/11/2025 9:30 AM EST Clinical Support [address] [phone] Julia Lu RN documented as of this encounter Visit Diagnoses Diagnosis Allergy, subsequent encounter documented in this encounter Care Teams Seamer Operator Relationship Specialty Start Date End Date Kyra Driscoll MD [address] [place] [address] PCP - General Family Medicine 06/03/19 03/03/24 Elizabeth Dean NP [address] [place] [address] PCP - General Family Medicine 02/25/25 documented as of this encounter
--- OUTSIDE RECORDS SUMMARY | 2025-09-16 13:16 | XMS_ITS | Encounter Summary ---
Author Organization [employer] Address 75 [facility] 7t h Floor [place] [phone] Care Team Providers Care Director Water And Waste Services Name Role Phone Elizabeth Dean NP Primary Care Provider [phone] Reason for Visit * Reason Onset Date Comments Prior Authorization 09/12/2025 Encounter Details Date Type Department Care Team ([facility] st Contact Info) Description 09/12/2025 Telephone [facility] MEDICINE 230 [place], [place] [phone] Elizabeth Dean NP 230 [place] [address] Prior Authorization Social History Tobacco Use Types Packs/Day Years [...] encounter Miscellaneous Notes * Telephone Encounter - Margaux Gould - 09/12/2025 10:15 AM EST PA initiated on Covermymeds for [employer]. Approval/denial pending. Mckenzie: [id number] documented in this encounter Plan of Treatment Upcoming Encounters Date Type Department Care Team (Late st Contact Info) Description 09/16/2025 2:00 PM EST Medication Management [address] [address] Juni Haji, HennyD [address] [place] [address] 11/04/2025 1:45 PM EST Office Visit [address] [address] Elizabeth Dean NP 230 [place], [place] [phone] 11/11/2025 9:30 AM EST Clinical Support [address] [address] Julia Lu RN documented as of this encounter Visit Diagnoses Not on filedocumented in this encounter Additional Health Concerns Assessment Noted Time PHQ-9 Depression Total Score: 20 025 7:51 AM EDT documented as of this encounter Care Teams Director Water And Waste Services Relationship Specialty Start Date End Date Elizabeth Dean NP 230 [place] [address] PCP - General Family Medicine 02/25/25 documented as of this encounter
--- OUTSIDE RECORDS SUMMARY | 2025-09-16 13:16 | XMS_ITS | Encounter Summary ---
Author Organization [employer] Address 75 [facility] 7t [place] [address] Care Team Providers Care Ocular Care Aide Name Role Phone Kyra Driscoll MD Primary Care Provide r Elizabeth Dean NP Primary Care Provider [phone] Reason for Visit * Reason Comments Med Refill Encounter Details Date Type Department Care Team (Late st Contact Info) Description 06/13/2023 Refill [facility] MEDICINE 230 [place], [place] [phone] Porfirio Saldivar MD 230 [place], [place] [phone] Uncomplicated opioid dependence (CMS/HCC) Social History Tobacco [...] Description 09/16/2025 2:00 PM EST Medication Management [facility] MEDICINE 230 [place], [place] [phone] Juni Haji, PharmD 230 [place], [place] [phone] 11/04/2025 1:45 PM EST Office Visit [address] [address] Elizabeth Dean NP [address] [place] [address] 11/11/2025 9:30 AM EST Clinical Support [address] [address] Julia Lu RN documented as of this encounter Visit Diagnoses Diagnosis Uncomplicated opioid dependence (CMS/HCC) (HCC) documented in this encounter Care Teams Ocular Care Aide Relationship Specialty Start Date End Date Kyra Driscoll MD [address] [place] [address] PCP - General Family Medicine 06/03/19 03/03/24 Elizabeth Dean NP [address] [place] [address] PCP - General Family Medicine 02/25/25 documented as of this encounter
--- OUTSIDE RECORDS SUMMARY | 2025-09-16 13:16 | XMS_ITS | Clinical Summary ---
Author [facility] Address [address] [place] [address] Care Team Providers Care Bottom Liner Name Role Phone Kyra Driscoll MD Primary Care Provide r Surgical History Surgery Date Site/Laterality Comments TUBAL LIGATION 2006 Bilateral PROCEDURE: HISTORICAL TUBAL LIGATION OTHER SURGICAL HISTORY 2006 PROCEDURE: IA HYSTEROSCOPY ENDOMETRIAL ABLATION GASTRIC BYPASS 2003 PROCEDURE: GASTRIC BYPASS FOR OBESIT; COMMENT: revision 2019 BREAST REDUCTION 2002 PROCEDURE: IA BREAST REDUCTION OTHER SURGICAL HISTORY 2009 PROCEDURE: ---- HEMORRHOIDS ---- CARPAL TUNNEL RELEASE 2010 PROCEDURE: IA NEUROPLASTY &/TRANSPOS MEDIAN NRV CARPAL TUNNE KNEE ARTHROPLASTY Right PROCEDURE: IA ARTHRS KNEE ABRASION ARTHRP/COMMERCIAL LOAN ASSISTANT DRLG/MICROFX BACK SURGERY PROCEDURE: HISTORICAL BACK SURGERY; COMMENT: lower back ? 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 ([facility] V24, [facility] V28) DX:Opioid depend w opioid-in maxime psychotic disorder w delusions ([facility]) Back pain DX:Back pain Cramps of lower extremity DX:Expansion Envelope Maker Hand mps of lower extremity Gastric bypass status for obesity DX:Gastric bypass status for obesity Knee pain DX:Knee pain Back pain DX:Back pain Systolic murmur DX:Systolic murm ur Seizure disorder ([facility] V2 4, [facility] V28) DX:Seizure disorder ([facility]) Bilateral hearing loss DX:Bilate ral hearing loss Bronchitis DX:Bronchitis Migraine DX:Migraine Scalp psoriasis DX:Scalp psorias is Bipolar 1 disorder (CMS/[facility] V24, [facility]/HCC V28) DX:Bipolar [...] Depression Screening 11/06/2024 COVID-19 Vaccine ( - 2024-2 6 season) 2025 Influenza Vaccine (#1) 2025 RSV [...] RESULTING AGENCY - 03/27/2020 12:15 PM EDT [id number] THINPREP PAP, IMAGED: NEGATIVE FOR SQUAMOUS INTRAEPITHELIAL [...] Recently Relevant to Health Maintenance Care Teams Bottom Liner Relationship Specialty Start Date End Date Kyra Driscoll MD [address] [phone] PCP - General Internal Medicine 08/13/21
--- OUTSIDE RECORDS SUMMARY | 2025-09-16 13:16 | XMS_ITS | Encounter Summary ---
Author Organization [employer] Address 75 [facility] 7t [place] [address] Care Team Providers Care Senior Finance Manager Name Role Phone Kyra Driscoll MD Primary Care Provide r Elizabeth Dean NP Primary Care Provider [phone] Reason for Visit * Reason Comments Med Refill Encounter Details Date Type Department Care Team (Late st Contact Info) Description 05/23/2023 Refill [facility] MED & PEDS [address] [place], [place] [phone] Kyra Driscoll MD 230 [place], [place] [phone] Social History Tobacco Use Types Packs/Day Years [...] Description 09/16/2025 2:00 PM EST Medication Management [facility] MEDICINE 230 [place], [place] [phone] Juni Haji, PharmD 230 [place], [place] [phone] 11/04/2025 1:45 PM EST Office Visit [address] [address] Elizabeth Dean NP [address] [place] [address] 11/11/2025 9:30 AM EST Clinical Support [address] [address] Julia Lu RN documented as of this encounter Visit Diagnoses Not on filedocumented in this encounter Care Teams Senior Finance Manager Relationship Specialty Start Date End Date Kyra Driscoll MD [address] [place] [address] PCP - General Family Medicine 06/03/19 03/03/24 Elizabeth Dean NP [address] [place] [address] PCP - General Family Medicine 02/25/25 documented as of this encounter
--- OUTSIDE RECORDS SUMMARY | 2025-09-16 13:16 | XMS_ITS | Encounter Summary ---
Author Organization [facility] Address [address] [facility] [address] [place] [address] Phone Care Team Providers Care Physician Practice Market Manager Name Role Phone Nohemi Nunez Primary Care Provider [phone] Encounter Details Date Type Department Care Team (Late st Contact Info) Description 01/16/2019 Ancillary Orders [facility] [address] [place] [address] Zora Hughes PA [address] [place] [address] [email or web address] Palpitations Social History Tobacco Use Types Packs/Day [...] Palpitations documented in this encounter Care Teams Physician Practice Market Manager Relationship Specialty Start Date End Date Nohemi Nunez DO 230 [place] [address] PCP - General 11/09/17 documented as of this encounter Additional Source Comments The information contained in this document represents components of the legal health record. It is not the complete legal health record.[facility]
--- OUTSIDE RECORDS SUMMARY | 2025-09-16 13:16 | XMS_ITS | Encounter Summary ---
Author Organization [employer] Address 75 [facility] 7t [place] [address] Care Team Providers Care Drill Operator Automatic Name Role Phone Kyra Driscoll MD Primary Care Provide r Elizabeth Dean NP Primary Care Provider Reason for Visit * Reason Comments Med Refill Encounter Details Date Type Department Care Team (Late Contact Info) Description 03/10/2023 Refill [facility] MEDICINE 230 [place], [place] [phone] Nurys Mcdonnell MD 230 [place], [place] [phone] Allergy, subsequent encounter Social History Tobacco Use [...] Upcoming Encounters Date Type Department Care Team ([facility] Contact Info) Description 09/16/2025 2:00 PM EST Medication Management [address] [address] Juni Haji, PharmD 230 [place] [address] 11/04/2025 1:45 PM EST Office Visit [address] [address] Elizabeth Dean NP [address] [place] [address] 11/11/2025 9:30 AM EST Clinical Support [address] [address] Julia Lu RN documented as of this encounter Visit Diagnoses Diagnosis Allergy, subsequent encounter documented in this encounter Care Teams Drill Operator Automatic Relationship Specialty Start Date End Date Kyra Driscoll MD [address] [place] [address] PCP - General Family Medicine 06/03/19 03/03/24 Elizabeth Dean NP [address] [place] [phone] PCP - General Family Medicine 02/25/25 documented as of this encounter
--- OUTSIDE RECORDS SUMMARY | 2025-09-16 13:16 | XMS_ITS | Encounter Summary ---
Author Organization [employer] Address 75 [facility] 7t [place] [address] Care Team Providers Care Events Intern Name Role Phone Kyra Driscoll MD Primary Care Provide r Elizabeth Dean NP Primary Care Provider [phone] Reason for Visit * Reason Comments Med Refill Encounter Details Date Type Department Care Team (Late st Contact Info) Description 06/07/2023 Refill [facility] CHC MED & PEDS [address] [place], [place] [phone] Kyra Driscoll MD 230 [place], [place] [phone] Chronic nausea; Allergy, subsequent encounter Social History [...] Description 09/16/2025 2:00 PM EST Medication Management [facility] MEDICINE 230 [place], [place] [phone] Juni Haji, PharmD 230 [place], [place] [phone] 11/04/2025 1:45 PM EST Office Visit [address] [address] Elizabeth Dean NP [address] [place] [address] 11/11/2025 9:30 AM EST Clinical Support [address] [address] Julia Lu RN documented as of this encounter Visit Diagnoses Diagnosis Chronic nausea Nausea alone Allergy, subsequent encounter documented in this encounter Care Teams Events Intern Relationship Specialty Start Date End Date Kyra Driscoll MD [address] [place] [address] PCP - General Family Medicine 06/03/19 03/03/24 Elizabeth Dean NP [address] [place] [address] PCP - General Family Medicine 02/25/25 documented as of this encounter
--- OUTSIDE RECORDS SUMMARY | 2025-09-16 13:16 | XMS_ITS | Encounter Summary ---
Author Organization [employer] Address 75 [facility] 7t [place] [address] Care Team Providers Care Manager Benefit Name Role Phone Kyra Driscoll MD Primary Care Provide r Elizabeth Dean NP Primary Care Provider [phone] Reason for Visit * Reason Comments Med Refill Encounter Details Date Type Department Care Team ([facility] Contact Info) Description 04/24/2023 Refill [facility] MEDICINE 230 [place], [place] [phone] Kyra Driscoll MD 230 [place], [place] [phone] Allergy, subsequent encounter Social History Tobacco Use [...] Upcoming Encounters Date Type Department Care Team ([facility] Contact Info) Description 09/16/2025 2:00 PM EST Medication Management [address] [address] Juni Haji, HennyD [address] [place] [address] 11/04/2025 1:45 PM EST Office Visit [address] [address] Elizabeth Dean NP [address] [place] [address] 11/11/2025 9:30 AM EST Clinical Support [address] [address] Julia Lu RN documented as of this encounter Visit Diagnoses Diagnosis Allergy, subsequent encounter documented in this encounter Care Teams Manager Benefit Relationship Specialty Start Date End Date Kyra Driscoll MD [address] [place] [address] PCP - General Family Medicine 06/03/19 03/03/24 Elziabeth Dean NP [address] [place] [address] PCP - General Family Medicine 02/25/25 documented as of this encounter
--- OUTSIDE RECORDS SUMMARY | 2025-09-16 13:16 | XMS_ITS | Encounter Summary ---
Author Organization [employer] Address [address] [place] [address] 7t [place] [address] Care Team Providers Care Skidder Driver Name Role Phone Kyra Driscoll MD Primary Care Provide r Elizabeth Dean NP Primary Care Provider [phone] Encounter Details Date Type Department Care Team (Late st Contact Info) Description 09/26/2022 Abstract [facility] MEDICINE [address] [place] [address] [phone] Kyra Driscoll MD [address] [place] [address] [phone] Social History Tobacco Use Types Packs/Day Years [...] Description 09/16/2025 2:00 PM EST Medication Management [address] [address] Juni Haji, PharmD [address] [place] [address] 11/04/2025 1:45 PM EST Office Visit [facility]ICINE [address] [place] [address] Elizabeth Dean NP 230 [place] [address] 11/11/2025 9:30 AM EST Clinical Support [facility] MEDICINE 230 [place] [address] Julia Lu, BEN documented as of this encounter Visit Diagnoses Not on filedocumented in this encounter Care Teams Skidder Driver Relationship Specialty Start Date End Date Kyra Driscoll MD 230 [place] [address] PCP - General Family Medicine 06/03/19 03/03/24 Elizabeth Dean NP 230 [place] [address] PCP - General Family Medicine 02/25/25 documented as of this encounter
--- OUTSIDE RECORDS SUMMARY | 2025-09-16 13:17 | XMS_ITS | Encounter Summary ---
Author Organization [employer] Address 75 [facility] 7t [place] [address] Care Team Providers Care Field Artillery Operations Man Name Role Phone Elizabeth Dean MARCO Primary Care Provider [phone] Reason for Visit * Reason Comments Med Refill Encounter Details Date Type Department Care Team ([facility] st Contact Info) Description 03/25/2025 Refill [facility] MEDICINE 230 [place], [place] [phone] Porfirio Saldivar MD 230 [place], [place] [phone] Uncomplicated opioid dependence (CMS/HCC) Social History Tobacco [...] Description 09/16/2025 2:00 PM EST Medication Management [address] [address] Juni Haji, PharmD [address] [place] [address] 11/04/2025 1:45 PM EST Office Visit [address] [address] Elizabeth Dean NP [address] [place] [address] 11/11/2025 9:30 AM EST Clinical Support [address] [address] Julia Lu, BEN documented as of this encounter Visit Diagnoses Diagnosis Uncomplicated opioid dependence (CMS/HCC) (HCC) documented in this encounter Additional Health Concerns Assessment Noted Time PHQ-9 Depression Total Score: 19 025 7:51 AM EDT documented as of this encounter Care Teams Field Artillery Operations Man Relationship Specialty Start Date End Date Elizabeth Dean NP [address] [place] [address] PCP - General Family Medicine 02/25/25 documented as of this encounter
--- OUTSIDE RECORDS SUMMARY | 2025-09-16 13:17 | XMS_ITS | Encounter Summary ---
Author Organization [employer] Address [address] [facility] [address] 7t [place] [address] Care Team Providers Care Advice Clerk Name Role Phone Elizabeth Dean MARCO Primary Care Provider [phone] Encounter Details Date Type Department Care Team (Latest Contact Info) Description 09/16/2025 Travel Social History Tobacco Use Types Packs/Day [...] Description 09/16/2025 2:00 PM EST Medication Management [address] [address] Juni Haji, PharmD [address] [place] [address] 11/04/2025 1:45 PM EST Office Visit [address] [address] Elizabeth Dean NP [address] [place] [address] 11/11/2025 9:30 AM EST Clinical Support [address] [address] Julia Lu, BEN documented as of this encounter Visit Diagnoses Not on filedocumented in this encounter Additional Health Concerns Assessment Noted Time PHQ-9 Depression Total Score: 20 025 7:51 AM EDT documented as of this encounter Care Teams Advice Clerk Relationship Specialty Start Date End Date Elizabeth Dean NP [address] [place] [address] PCP - General Family Medicine 02/25/25 documented as of this encounter
--- OUTSIDE RECORDS SUMMARY | 2025-09-16 13:17 | XMS_ITS | Clinical Summary ---
Author Organization [facility] Address [address] [facility] [address] [place] [address] Phone Care Team Providers Care Paper Bag Maker Name Role Phone Mayra Nohemi Primary Care [...] file Insurance MEDICARE PART A & B [facility] & B [facility] MEDIC[facility] PART A & B [place] [facility] [place] & B Member Subscriber Plan / Payer ( fective 2017-Present) Name:Christie Ortiz Member ID:[id number] Relation to Subscriber:Self Name:Christie Ortiz Subscriber ID:[id number] Payer ID:[id number] Group ID:Not on file Type:Medicare Address: [employer] [address] [place] [id number] [place] A [place] B [facility] Care Teams Paper Bag Maker Relationship Specialty Start Date End Date Nohemi Nunez DO [address] [place] [address] PCP - General 11/09/17 Additional Source Comments The information contained in this document represents components of the legal health record. It is not the complete legal health record.[facility]
--- OUTSIDE RECORDS SUMMARY | 2025-09-16 13:17 | XMS_ITS | Encounter Summary ---
Author Organization [employer] Address 75 [facility] 7t [place] [address] Care Team Providers Care Campus Security Officer Name Role Phone Elizabeth Dean NP Primary Care Provider [phone] Reason for Visit * Reason Comments Med Refill Encounter Details Date Type Department Care Team ([facility] st Contact Info) Description 09/16/2025 Refill [facility] MEDICINE 230 [place], [place] [phone] Elizabeth Dean NP 230 [place], [place] [phone] Allergy, subsequent encounter; Neuropathic pain Social History Tobacco Use Types Packs/Day Years [...] Description 09/16/2025 2:00 PM EST Medication Management [address] [address] Juni Haji, PharmD [address] [place] [address] 11/04/2025 1:45 PM EST Office Visit [address] [address] Elizabeth Dean NP [address] [place] [address] 11/11/2025 9:30 AM EST Clinical Support [address] [address] Julia Lu, BEN documented as of this encounter Visit Diagnoses Diagnosis Allergy, subsequent encounter Neuropathic pain documented in this encounter Additional Health Concerns Assessment Noted Time PHQ-9 Depression Total Score: 20 025 7:51 AM EDT documented as of this encounter Care Teams Campus Security Officer Relationship Specialty Start Date End Date Elizabeth Dean NP [address] [place] [address] PCP - General Family Medicine 02/25/25 documented as of this encounter
--- OUTSIDE RECORDS SUMMARY | 2025-09-16 13:17 | XMS_ITS | Encounter Summary ---
Author Organization [employer] Address [address] [facility] 7t [place] [address] Care Team Providers Care [employer] Worker Name Role Phone Elizabeth Dean NP Primary Care Provider [phone] Reason for Visit * Reason Comments Med Refill Encounter Details Date Type Department Care Team ([facility] Contact Info) Description 03/27/2025 Refill [facility] [address] [place], [place] [phone] Elizabeth Dean NP [address] [place], [place] [phone] Other muscle spasm Social History Tobacco Use [...] Description 09/16/2025 2:00 PM EST Medication Management [address] [address] Juni Haji, PharmD [address] [place] [address] 11/04/2025 1:45 PM EST Office Visit [address] [address] Elizabeth Dean NP [address] [place] [address] 11/11/2025 9:30 AM EST Clinical Support [address] [address] Julia Lu RN documented as of this encounter Visit Diagnoses Diagnosis Other muscle spasm documented in this encounter Additional Health Concerns Assessment Noted Time PHQ-9 Depression Total Score: 19 025 7:51 AM EDT documented as of this encounter Care Teams [employer] Worker Relationship Specialty Start Date End Date Elizabeth Dean NP [address] [place] [address] PCP - General Family Medicine 02/25/25 documented as of this encounter
--- OUTSIDE RECORDS SUMMARY | 2025-09-16 13:17 | XMS_ITS | Clinical Summary ---
Author Organization [employer] Address [address] [facility] 7t [place] [address] Care Team Providers Care Chief Estimator Name Role Phone Elizabeth Dean MARCO Primary Care Provider Allergies Active Allergy Reactions Criticality Noted Date [...] AT BEDTIME 023 Active Continuous Blood Gluc Computer Systems Integrator (FreeStyle Cindy 2 [place]) device USE DIRECTED 023 Active Continuous Blood [...] Take 240 mg by mouth. Active fluocinolone (Parnell-Smoothe) 0.01 % external oil apply by topical [...] mouth every 12 (twelve) hours. Active pancrelipase, Ljq-Zreu-Tiyw, (Creon) 9573-2316 units capsule Take 1 capsule by mouth. [...] obstructive pulmonary disease) with chronic bronchitis (CMS/HCC) ([facility]) Take 1 tablet (10 mg) by mouth [...] EXCEED 3 TABLETS / DAY 90 tablet 025 Active Buprenorphine HCl-Naloxone HCl (Suboxone) 8-2 MG SL filmIndications: Uncomplicated opioid dependence (CMS/HCC) ([facility]) Place 1 Film under the tongue 3 times daily. 84 Film 1 025 2025 Active OXcarbazepine (Trileptal) 600 MG tablet TAKE 1 TABLET BY MOUTH TWICE DAILY IN THE MORNING AND IN THE EVENING 023 2024 Discontinued( Reorder (will not trigger notification to Pharmacy)) montelukast (Singulair) 10 MG tabletIndication s:COPD (chronic obstructive pulmonary disease) with chronic bronchitis (CMS/HCC) ([facility]) Take 1 tablet (10 mg) by mouth [...] eyes). 10 mL 2 025 2024 Discontinued prazosin (Minipress) 1 MG capsule TAKE 1 CAPSULE BY MOUTH EVERY DAY AT BEDTIME NEEDED (NIGHTMARES) 30 capsule 1 025 2024 Discontinued EPINEPHrine (Epipen) 0.3 MG/0.3ML injection syringeIndicatio ns:Allergy, subsequent encounter INJECT INTRAMUSCULARLY DIRECTED ON PACKAGE AND GO TO EMERGENCY ROOM 2 each 2 025 2024 Discontinued Fluticasone Furoate-Vilanter ol (Breo Ellipta) 200-25 MCG/ACT aerosol powder INHALE 1 PUFF BY MOUTH EVERY DAY AT THE SAME TIME RINSE MOUTH AFTER USING 30 each 1 025 2024 Discontinued( Reorder (will not trigger notification to Pharmacy)) Suboxone 8-2 MG SL filmIndications: Uncomplicated opioid dependence (CMS/HCC) ([facility]) Place 1 Film under the tongue 3 times daily for 28 days. 84 Film 025 2024 Discontinued( Reorder (will not trigger notification to Pharmacy)) tiZANidine (Zanaflex) 4 MG tabletIndication s:Other muscle spasm TAKE 1 TABLET BY MOUTH EVERY 8 HOURS NEEDED. DO NOT EXCEED 3 TABLETS PER DAY. 90 tablet 025 2024 Discontinued Suboxone 8-2 MG SL filmIndications: Uncomplicated opioid dependence (CMS/HCC) ([facility]) Place 1 Film under the tongue 3 times daily for 28 days. 84 Film 025 2024 Discontinued( Med list cleanup (will not trigger notification to Pharmacy)) Active [...] reviewed with Dr. Heidi Foreman called to [facility] and pt transported via ambulance Seizures ([facility]) 02/28/2025 NARCISO positive 02/28/2025 Class 1 obesity [...] radiculopathy 01/13/2025 Mixed bipolar affective disorder, mild ([facility]) 01/13/2025 Assessment & Plan (04/07/2025 4:20 PM EDT): Referral to psychiatry, [facility] meds Multiple sclerosis 01/13/2025 Spasm 01/13/2025 Systemic lupus erythematosus ([facility]) Assessment & Plan (03/11/2025 11:55 AM EDT): [...] substernal chest pain 08/15 this morning now 7/10 found to be [...] has an open endo referral. I called [facility] endo. They said they recently lost 4 or 5 providers so they are booked out until October. They happened to have an open appointment MondayMarch 06 at 1545. [address] [facility], [address], [place]. I called patient and informed her of her appointment. Migraine headache 12/02/2022 Neck pain 12/02/2022 Obstructive sleep apnea syndrome 12/02/2022 Assessment & Plan (08/25/2025 1:04 PM EDT): Orders: Referral to Sleep Medicine; Future Pain in elbow 12/02/2022 Positive antinuclear antibody 12/02/2022 Rash 12/02/2022 Seropositive rheumatoid arthritis ([facility]) 11/07 Assessment & Plan (03/11/2025 11:55 AM [...] Dermatochalasis of both upper eyelids 03/15/2019 Seizure (CMS/HCC) 03/15/2019 Assessment & Plan (08/25/2025 1:04 PM [...] obstructive pu lmonary disease) with chronic bronchitis ([facility]) 11/29/2017 Assessment & Plan (08/25/2025 1:04 PM [...] in early remission, on maintenance therapy, dependence ([facility]) 09/04/2015 Fibromyositis 04/26/2013 Assessment & Plan (04/08/2025 [...] Encounters Date Type Department Care Team Description 09/16/2025 10:30 AM EST Office Visit [facility] MED[facility]INE [address] [place] [address] Porfirio Saldivar MD Uncomplicated opioid dependence (CMS/HCC) ([facility]) (Primary Dx) 09/16/2025 Refill [facility] [address] [facility] [place] [address] Elizabeth Dean NP Allergy, subsequent encounter; Neuropathic pain 09/16/2025 Travel 09/12/2025 Telephone [facility] [address] [facility] [place] [address] Elizabeth Dean NP 09/12/2025 Telephone [facility] MED[facility]INE [address] [place] [address] Elizabeth Dean NP Prior Authorization 09/11/2025 Telephone [facility] [address] [place] [address] Elizabeth Dean NP Error (VOID this visit) (Entered in error/) 09/08/2025 Refill [facility] [address] [facility] [place] [address] Julia Lu RN Uncomplicated opioid dependence (CMS/HCC) (HCC) 09/08/2025 Refill [facility] [address] [facility] [place] [address] Elizabeth Dean NP Other muscle spasm 09/03/2025 Refill [facility] [address] [facility] [address] Elizabeth Dean NP Seasonal allergic rhinitis due to pollen; Allergy, subsequent encounter 09/01/2025 Telephone [facility] [address] [facility] [place] [address] Elizabeth Dean NP 08/29/[address] [address] Elizabeth Dean NP Durable Medical Equipment 08/28/2025 Patient Outreach [address] [address] Mile [facility] Supports 08/28/[address] [address] Elizabeth Dean NP 08/25/2025 11:30 AM EDT Office Visit [address] [address] Elizabeth Dean NP Acute right ankle pain (Primary Dx); Acute pain of right knee; Pre-diabetes; Hypoglycemia after GI (gastrointestinal) surgery; Seizure (CMS/HCC) ([facility]); Moderate asthma without complication, unspecified whether persistent; Elevated blood pressure reading; Chronic nausea; COPD (chronic obstructive pulmonary disease) with chronic bronchitis (CMS/HCC) ([facility]); Other migraine without status migrainosus, intractable; Incontinence in female; Obstructive sleep apnea syndrome; Morbid obesity (CMS/HCC) ([facility]) 08/25/2025 Travel 08/25/2025 Refill [facility] [place] [address] Torres Morillo MD 08/22/[address] [address] Elizabeth Dean NP chart prep 08/19/2025 9:30 AM EDT Clinical Support [address] [address] Julia Lu RN Uncomplicated opioid dependence (CMS/HCC) ([facility]) 08/19/2025 Travel 08/14/2025 Refill [facility] [address] [place] [address] Elizabeth Dean NP Other muscle spasm; Nausea; Anxiety 08/12/2025 Refill [facility] [address] [place] [address] Julia Lu RN Uncomplicated opioid dependence ([facility]) ([facility]) 08/11/2025 Patient Outreach [facility] [address] [place] [address] Aron Hernández Recovery Supports 08/11/2025 Refill [facility] [address] [place] [address] Elizabeth Dean NP Moderate persistent asthma without complication 08/06/2025 Refill [facility] [address] [place] [address] Elizabeth Dean NP Nausea; Anxiety 08/02/2025 Refill [facility] [address] [place] [address] Elizabeth Dean NP Seborrheic dermatitis; Major depressive disorder in full remission, unspecified whether recurrent ([facility]) 07/31/2025 Telephone [facility] [address] [place] [address] Elizabeth Dean NP Prior Authorization 07/31/2025 Telephone [facility] [address] [place] [address] Elizabeth Dean NP med b form 07/29/2025 Refill [facility] [address] [place] [address] Elizabeth Dean NP Moderate persistent asthma without complication 07/25/2025 Patient Outreach [facility] [address] [place] [address] Bartolo Petit Recovery Supports 07/22/2025 9:15 AM EDT Office Visit [facility] [address] [place] [address] Porfirio Saldivar MD Uncomplicated opioid dependence ([facility]) (Primary Dx) 07/22/2025 Refill [facility] [address] [place] [address] Elizabeth Dean NP Allergy, subsequent encounter 07/22/2025 Travel 07/15/2025 Refill [facility] [address] [place] [address] Julia Lu RN Uncomplicated opioid dependence ([facility]) 07/03/2025 Telephone [facility] [address] [place] [address] Elizabeth Dean NP 07/03/[address] [address] Elizabeth Dean NP Per Elizabeth 07/02/[address] [address] Elizabeth Dean NP Other muscle spasm 06/26/2025 Refill [facility] [address] [place] [address] Elizabeth Dean NP 06/24/2025 Results Follow-Up [address] [address] Elizabeth Dean NP Pap Smear, HPV High Risk with Reflex to Subtypes 06/23/[address] [address] Porfirio Saldivar MD Hypoglycemia; Allergy, subsequent encounter; Neuropathic pain; IFG (impaired fasting glucose) 06/23/[address] [address] Elizabeth Dean NP Hypoglycemia; Nausea; Anxiety; Other muscle spasm 06/23/[address] [address] Torres Morillo MD 06/19/[address] [address] Julia Lu RN Med Refill; Durable Medical Equipment (Pt walked in staying the ankle brace she haves bothers her and is very uncomfortable. Pt is requesting a different ankle brace . ) 06/18/2025 Refill [facility] [address] [place] [address] Julia Lu RN Uncomplicated opioid dependence ([facility]) 06/17/2025 10:00 AM EDT Clinical Support [address] [address] Enko, Julia, RN Uncomplicated opioid dependence ([facility]) (Primary Dx) 06/17/2025 Travel from Last 3 Months Immunizations Immunization [...] 09/16/2025 2:00 PM EST Medication Management [address] [address] Juni Haji, PharmD [address] [place] [address] 11/04/2025 1:45 PM EST Office Visit [address] [address] Elizabeth Dean, MARCO [address] [place] [address] 11/11/2025 9:30 AM EST Clinical Support [address] [address] Julia Lu, RN Health Maintenance Due Date [...] 06/26/2007 Mammogram 09/16/2024 09/16/2022, 08/06/2018 COVID-19 Vaccine ( - season) 2025 11/08/2022, 02/01/2021 Influenza Vaccine [...] 10:01 AM EDT Uncomplicated opioid dependence (CMS/HCC) HPV DNA, LOW/HIGH RISK Routine 06/10/2025 1:25 PM EDT Cervical cancer screening PAP SMEAR Routine 06/10/2025 1:25 PM EDT [...] AM EDT) Hemoglobin A1c 5.5 <6.0 % [facility] Comment:Hemoglobin A1C Refer ence Range Adults: 4.8 - 6.0 % Non diabetic: < 6.0 % Goal: < 7.0 %Additional Action Suggested: > 8.0 %Note: Hemoglobin A1c results are invalid for patients with abnormal amounts of HbF. Blood transfusions may impact the HbA1c concentration in the patient sample. Estimated Average Glucose 111 mg/dL [facility] Comment:eAG = Estimated ave rage glucose which is %A1C expressed asaverage glucose, using the formula of the Q3E-CacvpjyEqvebnv Glucose study (ADAG), Diabetes Care, Vol.31,#8,Jun. 2007 Blood Venous blood specimen / Unknown 08/27/2025 10:10 AM EDT 08/27/2025 11:26 AM EDT us Elizabeth Dean HELP DESK ADMINISTRATOR LAB BLOOD ORDERABLES Final Resul t [facility] [address] [place] [phone] [phone] * (ABNORMAL) Comprehensive Metabolic Panel (08/27/2025 10:10 AM EDT) Sodium 143 135 - 145 mmol/L [facility] Potassium 3.5 3.3 - 5.1 mmol/L [facility] Chloride 108 96 - 108 mmol/L [facility] Carbon Dioxide 28 22 - 29 mmol/L [facility] Anion Gap 11(L) 12 - 20 [facility] Urea Nitrogen (BUN) 11 9 - 16 mg/dL [facility] Creatinine, Serum 0.69 0.5 - 1.4 mg/dL [facility] Estimated Glomerular Filt Rate >60 [facility] Comment:Chronic Kidney Disea se: Estimated GFR < 60 mL/min/1.82z0Cgbiwj Kidney Disease: Estimated GFR < 15 mL/min/1.73m2 Glucose 121(H) 60 - 115 mg/dL [facility] Calcium 9.0 8.4 - 10.2 mg/dL [facility] Bilirubin, Total 0.4 0.0 - 1.0 mg/dL [facility] Aspartate Amino Transferase 37(H) 5 - 31 U/L [facility] Alanine Aminotransferase 14 0 - 31 U/L [facility] Total Protein 7.8 6.5 - 8.0 g/dL [facility] Albumin Level 4.6 3.5 - 5.0 g/dL [facility] Alkaline Phosphatase 132(H) 39 - 117 U/L [facility] Blood Venous blood specimen / Unknown 08/27/2025 10:10 AM EDT 08/27/2025 11:26 AM EDT us Elizabeth Dean NP LAB BLOOD ORDERABLES Final Resul t [facility] [address] [place] [phone] * (ABNORMAL) POCT PERLA-14 Urine Drug [...] PM EDT) HPV High Risk Negative Negative [facility] HPV Genotype 16 Negative Negative [facility] HPV Genotype 18 Negative Negative [facility] Comment:HPV testing performe d at [facility] (CLIA#[id number]), [address] [place] [phone].Testing for HPV was performed using the [employer] LOL[employer] Mutualink0system. The presence of HPV in the female [...] NP LAB BLOOD ORDERABLES Final Resul t [facility] [address] [place] [phone] * Pap Smear (06/10/2025 1:25 PM EDT) Swab Cervix uteri structure / Unknown 06/10/2025 1:25 PM EDT 06/11/2025 8:30 AM EDT Narrative [facility] - 06/17/2025 8:19 AM EDT ----- ------- Name: Christie Ortiz Age/Sex: 49/F : 1975 Unit#: [id number] Attend Dr: Elizabeth Dean HELP DESK ADMINISTRATOR Re06/10/25 Status: [facility] Disch: ----- ------- SPEC : [id number] RECD: 06/11/25 STATUS: SUMMER GARCIA NUM: [id number] RADHA: 06/10/25-[address] [facility] [address]: Elizabeth Dean HELP DESK ADMINISTRATOR ENTERED: 06/11/25 SP TYPE: Pap Smr OTHR [...] will be performed at [facility] (CLIA #[id number]), [address] [place] [address]. Testing for HPV was performed using the O[employer] LOLA 6800 system. The presence of HPV [...] detected. All professional services are performed by ([address] [place] [address], [place] [address]; ; CLIA #[id number]). The PAP Test is a screening procedure with the inherent possibility of both false negative and false positive results. Results should be interpreted in the context of historic and current clinical findings. Reliability of the PAP Test is enhanced by performing the test on a regular repetitive basis. ----- ------- Signed (signature on file) CORDELIA Frederick (ASC) 06/17/25 0819 ----- ------- END OF REPORT Elizabeth Dean NP LAB CYTOLOGY ORDERABLES Final Re sult Performing Organization Address [facility] Co de Phone Number [facility] [address] [place] [phone] * Hepatitis C Antibody with Reflex to HCV, RNA, Quantitative, Real-Time PCR (03/04/2025 10:16 AM EDT) Hepatitis C Antibody Nonreactive Nonreactive [facility] Comment:Antibodies to HCV no t detected; does not exclude early acuteHCV infection. Blood Venous blood specimen / Unknown 03/04/2025 10:16 AM EDT 03/04/2025 11:22 AM EDT Torres Morillo MD LAB BLOOD ORDERABLES Final Resul t Performing Organization Address [facility]/ZIP Co de Phone Number [facility] [address] [place] [phone] * HIV-1/2 Antigen and Antibodies, Fourth Generation, with Reflexes (03/04/2025 10:16 AM EDT) HIV AB/AG Nonreactive Nonreactive [facility] Comment:HIV-1 p24 Ag and/or HIV-1/HIV-2 Ab not detected.A test result that is nonreactive does not exclude thepossibility of exposure to or infection with HIV-1 and/orHIV-2. Nonreactive results in this assay for individualswith prior exposure to HIV-1 and/or HIV-2 may be due toantigen and antibody levels that are below the limit ofdetection of this assay.The [employer] HIV Ag/Ab Combo assay result andsupplemental assay results should be interpreted inconjunction with the patient's clinical presentation,history and other laboratory results. If the results areinconsistent with clinical evidence, additional testing issuggested to confirm the result. Blood Venous blood specimen / Unknown 03/04/2025 10:16 AM EDT 03/04/2025 11:22 AM EDT Torres Morillo MD LAB BLOOD ORDERABLES Final Resul t Performing Organization Address [facility] Co de Phone Number [facility] [address] [place] [address] [phone] * Lipid Panel, Standard (03/01/2023 11:10 AM EDT) Cholesterol, Total 159 <200 mg/dL [facility] HDL Cholesterol 79 > OR = 50 mg/dL [facility] Triglycerides 44 <150 mg/dL [facility] LDL Cholesterol 67 mg/dL (calc) [facility] Comment: Reference range: <100 Desirable range <100 mg/dL for primary prevention; <70 mg/dL for patients with CHD or diabetic patients with > or = 2 CHD risk factors. LDL-C is now calculated using the Rayray-Oakes calculation, which is a validated novel method providing better accuracy than the Friedewald equation in the estimation of LDL-C. Rayray SS et al. GUILLAUME. 2013;310(19): 9692-4931 (http://education.Viki/faq/ZKH301) Chol/HDLC Ratio 2.0 <5.0 (calc) [facility] Non-HDL Cholesterol 80 <130 mg/dL (calc) [facility] Comment: For patients with diabetes plus 1 major ASCVD risk factor, treating to a non-HDL-C goal of <100 mg/dL (LDL-C of <70 mg/dL) is considered a therapeutic option. Blood Venous blood specimen / Unknown 03/01/2023 11:10 AM EDT 03/01/2023 11:11 AM EDT Narrative [facility] - 03/04/2023 6:21 AM EDT FASTING:NO FASTING: NO Kyra Doyle MD LAB BLOOD ORDERABLES Final Result [address], [place] [address] [facility] [address] [place] [phone] * Mammography Report 1 (09/16/2022 1:32 PM [...] Most Recently Relevant to Health Maintenance Insurance [facility] STANDARD MEDICARE Care Teams Chief Estimator Relationship Specialty Start Date End Date Elizabeth Dean NP [address] [place] [address] PCP - General Family Medicine 02/25/25
[2025-09-16 13:44] LABS: MANUAL DIFF FLAG NO
[2025-09-16 13:50] LABS: Hematocrit 38.8 % (37.0-47.0); Hemoglobin 12.3 g/dl (12.0-16.0); Imm Gran Abs Auto 0.01 X10*3/uL (0.00-0.03); Imm Gran Pct Auto 0.2 % (0.0-0.4); Lymphocytes Absolute Auto 1.1 X10*3/uL (1.2-4.9); Mean Corpuscular HGB Conc 31.7 g/dl (31.0-35.0); Mean Corpuscular Hemoglobin 28.5 pg (27.0-33.0); Mean Corpuscular Volume 89.8 fL (80.0-98.0); NRBC Abs Auto 0.000 X10*3/uL (0.0-0.012); NRBC Pct Auto 0.0 /100WBC (0.0-0.2); Platelet Count 244 X10*3/uL (160-400); Red Blood Count 4.32 X10*6/uL (4.20-5.50); White Blood Count 4.3 X10*3/uL (4.8-10.8)
[2025-09-16 14:08] LABS: Alanine Aminotransferase 15 U/L (0-31); Albumin Level 4.4 g/dL (3.5-5.0); Alkaline Phosphatase 131 U/L (39-117); Anion Gap 11 (12-20); Aspartate Amino Transferase 45 U/L (5-31); Blood Urea Nitrogen 19 mg/dL (9-16); Calcium 9.0 mg/dL (8.4-10.2); Carbon Dioxide 27 mmol/L (22-29); Chloride 103 mmol/L (96-108); Estimated Glomerular Filt Rate > 60; Potassium 4.3 mmol/L (3.3-5.1); Sodium 137 mmol/L (135-145); Total Protein 7.6 g/dL (6.5-8.0)
[2025-09-17 04:21] LABS: HBS Num1 14.14 mIU/mL (0-7.99); HBc Num1 0.18 S/CO (0.00-0.79); HBsAGNum1 0.61 S/CO (0.00-0.99); Hepatitis B Surface Antigen Negative (Negative); ~HepC Num1 0.14 S/CO (0.00-0.79); ~Hepatitis B Surface Antibody REACTIVE (Nonreactive); ~Hepatitis C Antibody Nonreactive (Nonreactive)
[2025-09-19 06:53] LABS: TS Negative Control Passed; TS Panel A 2; TS Panel B 4; TS Positive Control Passed; TSpotTB Negative (Negative)
== END 2025-09-16 11:07 | disposition home or self-care (01) ==
LOC: HO.HHCX 11:06
PROVIDERS: PCP Nurse Practitioner Family; Referring Provider Student in an Organized Health Care Education/Training Program; Visit Provider Student in an Organized Health Care Education/Training Program
DX: Z11.1 Encounter for screening for respiratory tuberculosis (principal); M25.571 Pain in right ankle and joints of right foot; M05.9 Rheumatoid arthritis with rheumatoid factor, unspecified; Z79.899 Other long term (current) drug therapy
CPT/HCPCS: 36415; 72110; 73110; 73130; 73502; 73562; 73610; 80053; 85025; 85652; 86140; 86200; 86431; 86481; 86704; 86706; 86803; 87340

== ENCOUNTER → 2025-09-16 12:34 | Outpatient (BNV) | payer MEDICARE, MEDICAID, SELFPAY | PROVIDERS: PCP Nurse Practitioner Family; Referring Provider Student in an Organized Health Care Education/Training Program; Visit Provider Radiology Diagnostic Radiology | DX: M05.9 Rheumatoid arthritis with rheumatoid factor, unspecified (principal); Z98.1 Arthrodesis status; M16.0 Bilateral primary osteoarthritis of hip | CPT/HCPCS: 72110; 73502; 73562 ==

== ENCOUNTER 2025-09-23 13:43 | Outpatient (AMB) | payer MEDICARE, MEDICAID, SELFPAY ==
[2025-09-23 13:48] VITALS: BP 118/72; PULSE 83; O2SAT 97; BMI 37.3
--- NOTE | 2025-09-23 13:48 | MHC.OFFVIS ---
Vital Signs 09/23/25 13:48 Height 5 ft 3 in Weight 210 lb 8.663 oz BMI 37.3 BP 118/72 Blood Pressure Location Rt brachial Position Sitting Pulse 83 Pulse Source Pulse Oximeter Pulse Oximetry (%) 97 Oxygen Delivery Method Room Air Intake Visit Reasons: Hypoglycemia after GI surgery Intake Note: NEW Patient presents today to establish care for Hypoglycemia: No acute complaints reported at this time. Patient reports she was using Dexcom until insurance no longer approved it. She stated she does not have a glucometer as well due to insurance not covering testing strips. She states when she feels sympathetic she will correct it with candy or something sweet. Random Glucose: 126 mg/dl, patient reports nausea and dizziness. Contact Center Assistant Required: Yes Contact Center Assistant Language: Medical Technicians Services: Contact Center Assistant Present Contact Center Assistant Name: [facility] [place] Information Interpreted: non-clinical & clinical Accompanied by: Self / Same As Patient Allergies latex (LATEX) Allergy (Intermediate, Verified 09/23/25 13:49) RASH ENVIROMENTAL Allergy (Intermediate, Uncoded 09/23/25 13:49) HAYFEVER Food Allergy Formula Allergy (Unknown, Uncoded 09/23/25 13:49) Anaphylaxis Onions Allergy (Unknown, Uncoded 09/23/25 13:49) Anaphylaxis seasonal allergies Allergy (Unknown, Uncoded 09/23/25 13:49) Difficulty Breathing shellfish Allergy (Unknown, Uncoded 09/23/25 13:49) Anaphylaxis Medication List - Last Reconciled 09/23/25 by Yeset Simon Aguirre MD acetaminophen ER (Tylenol Arthritis Pain) 650 mg PO Q8H PRN albuterol sulfate 1 amp inhalation Q6H PRN albuterol sulfate 90 mcg/actuation 2 puffs inhalation Q4-6H PRN alcohol swabs (Alcohol Prep Pads) 1 pad topical DIRECTED ascorbic acid (vitamin C) (Vitamin C) 1 tab PO TID blood sugar diagnostic (FreeStyle Lite Strips) As directed to check BG 4-5 times per day blood-glucose sensor (FreeStyle Cindy 3 Plus Sensor device) As directed to check BG continuously for early detection of hypoglycemia blood-glucose,director of events,cont (FreeStyle Cindy 3 [place]) As directed Breo Ellipta 200-25 mcg/dose (fluticasone furoate-vilanterol) 1 ea inhalation DAILY NS buprenorphine-naloxone 8-2 mg (Suboxone) 2 film sublingual DAILY buspirone 15 mg PO BID cyanocobalamin (vitamin B-12) 1,000 mcg PO DAILY diphenhydramine HCl (Colleen-Dryl) 0 mg PO docusate sodium 100 mg PO DAILY epinephrine IM DIRECTED escitalopram oxalate 5 mg PO DAILY fexofenadine (Allergy Relief (fexofenadine)) 180 mg PO DAILY fluticasone propionate 50 mcg/actuation 1 spray intranasal DAILY folic acid 1 mg PO DAILY gabapentin 800 mg PO TID glucose 4 grams PO DIRECTED ketotifen fumarate 0.025%(0.035%) 1 drp ophthalmic (eye) BID lancets As directed meclizine mg PO PRN methotrexate sodium 15 mg (6 x 2.5 mg) PO QWEEK 90 days montelukast 10 mg PO QPM gvsnggiqfcuc-zxw-zgzo-FA-vit K 18 mg iron-600 mcg-40 mcg (Multi For Her) 1 tab-cap PO BID ondansetron 4 mg PO Q12H oxcarbazepine 600 mg PO BID prazosin 1 mg PO BEDTIME PRN primidone 25 mg PO BEDTIME semaglutide (Ozempic) 0.5 mg (0.736 mL) subcut QWEEK tizanidine 2 mg PO TID PRN topiramate 25 mg PO DAILY HPI Comments Details: 50 YO Female with PMHx Yulia En Y gastric bypass in 2003, seen in the office for evaluation and management of hypoglycemia. She was lost to follow up after last visit in . She reports that she moved to [place]. She reports she began experiencing hypoglycemia in Nov 2020. These episodes occur 2-3 hours after a meal. She has no episodes overnight or am fasting. She does report symptoms of hypoglycemia with anything less than 90. She has had readings less than 70, but not often. She did have a serum glucose of 48 on her labs. She previously completed a full biochemical assessment which revealed an abnormal 4 hour OGTT with her glucose dropping abruptly from 160's at the 1 hour kasie to 27 at the 2 hour kasie. She was symptomatic. The remainder of her labs showed an elevated am cortisol, but was otherwise WNL. 1 mg overnight DSST was WNL, ruling out alex's disease. The patient describes her current diet as starting with two boiled eggs and a whole-grain toast for breakfast, a snack of cheese and crackers mid-morning, a salad with tuna and tomato for lunch, hummus as an afternoon snack, and a piece of fruit in the evening. She is also drinking plenty of water and is focusing on healthy eating. She was having a weekly injection (trulicity) and she was then was transitioned to Ozempic in [place] in 2023. She has not being measuring her BG because she does not have the tools. She reports having low blood BG every day, or most days at least. Usually around 1 hour after the meals. She has not have any treatment since February 2025. She reports that Ozempic was working for her. She was using 0.5mg. She reports regular appetite. She has not being eating frequently as before. Physical exam: General: Well appearing. NAD. Neck/Thyroid: Thyroid not palpable, no nodules. CV: RRR, no murmur. No edema. Resp:Lungs clear to auscultation bilaterally Abdomen: Soft, nontender. nondistended Extremities/Neuro: No weakness or tremor of outstretched hands Laboratory Tests 08/27/25 09/16/25 09/23/25 10:10 11:33 14:01 Sodium 143 137 Potassium 3.5 4.3 D Anion Gap 11 L 11 L BUN 11 19 H Creatinine 0.69 0.69 Estimated GFR > 60 > 60 Glucose (Clinic) 126 H Random Glucose 121 H 88 Hemoglobin A1c % 5.5 Calcium 9.0 9.0 AST 37 H 45 H ALT 14 15 Alkaline Phosphatase 132 H 131 H [facility] Medical History (Updated 09/10/25 @ 14:53 by Sagrario Diane DPM) Chronic instability of ankle Right ankle pain Hypoglycemia Panniculitis Nausea Cellulitis Postoperative nausea and vomiting Migraine History of irregular heartbeat History of opioid abuse History of schizophrenia History of bipolar disorder History of seizures Sprain of ankle, right Obstructive sleep apnea Elevated cortisol level Hypoglycemia Epigastric abdominal pain Asthma Anemia Fibromyalgia Depression Hypertension Kidney calculi Carpal tunnel syndrome on both sides Surgical History S/P panniculectomy S/P thighplasty S/P brachioplasty History of back surgery History of endometrial ablation History of blepharoplasty H/O esophagogastroduodenoscopy H/O colonoscopy H/O section History of knee surgery H/O tubal ligation H/O hemorrhoidectomy H/O abdominoplasty History of bilateral breast reduction surgery H/O gastric bypass Family History Father Diabetes HTN (hypertension) Cancer Heart disease Mother Cancer Diabetes HTN (hypertension) Social History Household Members: Children Household Members Other:: daughter Are you a primary daycare worker to a significant other at home: No Do you presently have visiting nurse or other home services: Yes (DIRECTOR METABOLISM) Alcohol intake: never Patient Tobacco Use Status: Never used Tobacco Substance Use Type: Marijuana service: No Current occupational status: retired 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 Per her reports she was using Trulicity, then Ozempic when she moved to [place]. Unfortunately she moved back to [place] and had been off medication since February 2025. She did report that with the Ozempic she saw that is frequent episodes of hypoglycemia. We discussed the pathophysiology of reactive hypoglycemia including relative hyperinsulinemia due to increased insulin resistance and obesity, and persistent relative hyperinsulinemia after bariatric surgery. We discussed that besides medications, dietary habits are important, and the need for frequent meals, decrease in simple carb intake and increase in proteins and complex carbs would be paramount to avoid frequent hypoglycemia. Recommendations - Restart Ozempic (Semaglutide) 0.5 mg weekly - Prescribe a continuous glucose monitor to better track blood sugar levels - Refer to a tile picker for dietary management and education on carbohydrate intake - Encourage small, frequent meals with a focus on complex carbohydrates and proteins - Schedule a follow-up in three months to assess treatment efficacy and adjust as necessary - Plan for a possible extended follow-up to six months if symptoms stabilize Plan 45 minutes spent reviewing previous records, labs, imaging, education and documenting in the chart Orders: Referrals Supervisor [employer] Referral E16.2 - Hypoglycemia, unspecified, Z90.3 - Acquired absence of stomach [part of] Medications: New blood-glucose sensor (FreeStyle Cindy 3 Plus Sensor device) As directed to check BG continuously for early detection of hypoglycemia 2 ea 3RF E16.2 - Hypoglycemia, unspecified blood-glucose,director of events,cont (FreeStyle Cindy 3 [place]) As directed 1 ea 0RF E16.2 - Hypoglycemia, unspecified semaglutide (Ozempic) 0.5 mg (0.736 mL) subcut QWEEK 3 mL 3RF E16.2 - Hypoglycemia, unspecified, Z90.3 - Acquired absence of stomach [part of] blood sugar diagnostic (FreeStyle Lite Strips) As directed to check BG 4-5 times per day 100 ea 4RF E16.2 - Hypoglycemia, unspecified, Z90.3 - Acquired absence of stomach [part of] Patient Instructions: ?Qu? es la Hipoglucemia Reactiva? La hipoglucemia reactiva es jeff condici?n en la que el nivel de az?car en la yannick (glucosa) baja demasiado unas pocas horas despu?s de comer, generalmente entre 2 y 4 horas despu?s de jeff comida. [place] ocurre porque el cuerpo libera demasiada insulina en respuesta a la comida, lo que hace que el az?car en la yannick baje m?s de lo normal. ?Por Qu? Sucede? Despu?s de comer, el cuerpo digiere los alimentos y absorbe el az?car en la yannick. En respuesta, el p?ncreas libera insulina para ayudar a que el az?car pase de la yannick a las c?lulas, donde se usa apolinar energ?a. En la hipoglucemia reactiva, el cuerpo libera m?s insulina de la necesaria, lo que provoca que el nivel de az?car en la yannick baje demasiado. S?ntomas Comunes Puede experimentar s?ntomas apolinar: Temblor o sensaci?n de nerviosismo Sudoraci?n Ansiedad o irritabilidad Latidos card?acos r?pidos Mareo o sensaci?n de desmayo Hambre Dolor de ramu Dificultad para concentrarse Estos s?ntomas suelen mejorar r?pidamente despu?s de comer o beber algo con az?car. ?C?mo se Diagnostica? El diagn?stico se basa en los s?ntomas y en la medici?n del nivel de az?car en la yannick. Es posible que le pidamos que mida brown az?car cuando tenga s?ntomas, o que realicemos jeff prueba especial en la cl?beti para confirmar la bajada de az?car despu?s de jeff comida. ?C?mo se Maneja? La mayor?a de las personas pueden controlar la hipoglucemia reactiva con cambios sencillos en la alimentaci?n: Coma comidas nicholas?as y frecuentes a lo myron del d?a. Elija alimentos ricos en fibra y prote?stewart, y bajos en az?cares simples. Evite alimentos y bebidas azucaradas, especialmente con el est?azam vac?o. Incluya cereales integrales, verduras y prote?stewart magras en manju comidas. Limite la cafe?na y el alcohol, ya que pueden afectar el nivel de az?car. ?Cu?ndo Buscar Ayuda? Si presenta s?ntomas graves apolinar confusi?n, desmayo o convulsiones, o si los s?ntomas no mejoran con los cambios en la dieta, comun?quese con brown m?dico. Coding Level of Care Code New Pt Level 4 (27009) Diagnoses Hypoglycemia E16.2
[2025-09-23 14:05] LABS: Glucose, Whole Blood 126 mg/dL (60-115)
--- OUTSIDE RECORDS SUMMARY | 2025-09-24 07:19 | XMS_ITS | Encounter Summary ---
Author Organization [employer] Address [address] [facility] 7t [place] [address] Care Team Providers Care Wardrobe Assistant Name Role Phone Elizabeth Dean NP Primary Care Provider [phone] Reason for Visit * Reason Comments Med Refill Encounter Details Date Type Department Care Team ([facility] st Contact Info) Description 08/11/2025 Refill [facility] MEDICINE [address] [place], [place] [phone] Elizabeth Dean NP [address] [place], [place] [phone] Moderate persistent asthma without complication Social History [...] Care Team (Late st Contact Info) Description 10/21/2025 1:00 PM EST Medication Management [address] [address] Juni Haij, HennyD [address] [place] [address] 11/04/2025 1:45 PM EST Office Visit [address] [address] Elizabeth Dean NP [address] [place] [address] 11/11/2025 9:30 AM EST Clinical Support [address] [address] Julia Lu, BEN documented as of this encounter Visit Diagnoses Diagnosis Moderate persistent asthma without complication documented in this encounter Additional Health Concerns Assessment Noted Time PHQ-9 Depression Total Score: 20 025 7:51 AM EDT documented as of this encounter Care Teams Wardrobe Assistant Relationship Specialty Start Date End Date Elizabeth Dean NP [address] [place] [address] PCP - General Family Medicine 02/25/25 documented as of this encounter
--- OUTSIDE RECORDS SUMMARY | 2025-09-24 07:20 | XMS_ITS | Encounter Summary ---
Author Organization [employer] Address [address] [place] [address] [address] [place] [address] Care Team Providers Care Regional Director Of Admissions Name Role Phone Kyra Driscoll MD Primary Care Provide r Elizabeth Dean NP Primary Care Provider [phone] Reason for Visit * Reason Comments Med Refill Encounter Details Date Type Department Care Team (Late st Contact Info) Description 06/16/2023 Refill [facility] MEDICINE [address] [place], [place] [phone] Kyra Driscoll MD [address] [place], [place] [phone] Other muscle spasm Social History Tobacco Use [...] Description 10/21/2025 1:00 PM EST Medication Management [facility] MEDICINE [address] [place], [place] [phone] Juni Haji, PharmD [address] [place], [place] [phone] 11/04/2025 1:45 PM EST Office Visit [address] [address] Elizabeth Dean [place] [address] 11/11/2025 9:30 AM EST Clinical Support [address] [address] Julia Lu RN documented as of this encounter Visit Diagnoses Diagnosis Other muscle spasm documented in this encounter Care Teams Regional Director Of Admissions Relationship Specialty Start Date End Date Kyra Driscoll MD [address] [place] [phone] PCP - General Family Medicine 06/03/19 03/03/24 Elizabeth Dean NP [address] [place] [address] PCP - General Family Medicine 02/25/25 documented as of this encounter
--- OUTSIDE RECORDS SUMMARY | 2025-09-24 07:20 | XMS_ITS | Encounter Summary ---
Author Organization [employer] Address [address] [place] [address] 7t [place] [address] Care Team Providers Care Dust Mixer Name Role Phone Kyra Driscoll MD Primary Care Provide r Elizabeth Dean NP Primary Care Provider [phone] Encounter Details Date Type Department Care Team (Late st Contact Info) Description 09/26/2022 Abstract [facility] MEDICINE [address] [place] [phone] Kyra Driscoll MD [address] [place] [address] [phone] Social History Tobacco Use Types Packs/Day Years [...] Department Care Team (Late Contact Info) Description 10/21/2025 1:00 PM EST Medication Management [address] [address] Juni Haji, PharmD [address] [place] [address] 11/04/2025 1:45 PM EST Office Visit [facility] MED[facility]INE [address] [place] [phone] Elizabeth Dean NP [address] [place] [address] 11/11/2025 9:30 AM EST Clinical Support [facility] [address] [place] [address] Julia Lu, BEN documented as of this encounter Visit Diagnoses Not on filedocumented in this encounter Care Teams Dust Mixer Relationship Specialty Start Date End Date Kyra Driscoll MD [address] [place] [address] PCP - General Family Medicine 06/03/19 03/03/24 Elizabeth Dean NP [address] [place] [address] PCP - General Family Medicine 02/25/25 documented as of this encounter
--- OUTSIDE RECORDS SUMMARY | 2025-09-24 07:20 | XMS_ITS | Encounter Summary ---
Author Organization [employer] Address [address] [facility] 7t [place] [address] Care Team Providers Care Retail Seasonal Specialist Name Role Phone Kyra Driscoll MD Primary Care Provide r Elizabeth Dean NP Primary Care Provider [phone] Reason for Visit * Reason Comments Med Refill Encounter Details Date Type Department Care Team (Late st Contact Info) Description 05/23/2023 Refill [facility] [address] [place], [place] [phone] Kyra Driscoll MD [address] [place], [place] [phone] Social History Tobacco Use Types Packs/Day Years [...] Description 10/21/2025 1:00 PM EST Medication Management [facility] MEDICINE [address] [place], [place] [phone] Juni Haji, PharmD [address] [place], [place] [phone] 11/04/2025 1:45 PM EST Office Visit [address] [address] Elizabeth Dean NP [address] [place] [address] 11/11/2025 9:30 AM EST Clinical Support [address] [address] Julia Lu RN documented as of this encounter Visit Diagnoses Not on filedocumented in this encounter Care Teams Retail Seasonal Specialist Relationship Specialty Start Date End Date Kyra Driscoll MD [address] [place] [phone] PCP - General Family Medicine 06/03/19 03/03/24 Elizabeth Dean NP [address] [place] [address] PCP - General Family Medicine 02/25/25 documented as of this encounter
--- OUTSIDE RECORDS SUMMARY | 2025-09-24 07:20 | XMS_ITS | Encounter Summary ---
Author Organization [employer] Address [address] [facility] 7t [place] [address] Care Team Providers Care It Program Manager Name Role Phone Kyra Driscoll MD Primary Care Provide r Elizabeth Dean NP Primary Care Provider [phone] Reason for Visit * Reason Comments Med Refill Encounter Details Date Type Department Care Team (Late st Contact Info) Description 05/23/[address] [facility] MEDICINE [address] [place], [place] [phone] Nurys Mcdonnell MD [address] [place], [place] [phone] COPD (chronic obstructive pulmonary disease) with chronic bronchitis ([facility]/HCC) Social History Tobacco Use Types Packs/Day [...] Description 10/21/2025 1:00 PM EST Medication Management [facility] MEDICINE [address] [place], [place] [phone] Juni Haji, HennyD [address] [place], [place] [phone] 11/04/2025 1:45 PM EST Office Visit [address] [address] Elizabeth Dean NP [address] [place] [address] 11/11/2025 9:30 AM EST Clinical Support [address] [address] Julia Lu RN documented as of this encounter Visit Diagnoses Diagnosis COPD (chronic obstructive pulmonary disease) with chronic bronchitis (CMS/HCC) (HCC) documented in this encounter Care Teams It Program Manager Relationship Specialty Start Date End Date Kyra Driscoll MD [address] [place] [address] PCP - General Family Medicine 06/03/19 03/03/24 Elizabeth Dean NP [address] [place] [address] PCP - General Family Medicine 02/25/25 documented as of this encounter
--- OUTSIDE RECORDS SUMMARY | 2025-09-24 07:20 | XMS_ITS | Encounter Summary ---
Author Organization [employer] Address [address] [facility] 7t [place] [address] Care Team Providers Care Freight Broker Agent Name Role Phone Kyra Driscoll MD Primary Care Provide r Elizabeth Dean NP Primary Care Provider [phone] Reason for Visit * Reason Comments Med Refill Encounter Details Date Type Department Care Team ([facility] Contact Info) Description 06/07/2023 Refill [facility] [address] [place], [place] [phone] Rachel Cash FNP [address] [place], [place] [phone] Allergy, subsequent encounter Social History Tobacco Use [...] Description 10/21/2025 1:00 PM EST Medication Management [facility] [address] [place], [place] [phone] Juni Haji, PharmD 230 [place], [place] [phone] 11/04/2025 1:45 PM EST Office Visit [address] [address] Elizabeth Dean NP [address] [place] [address] 11/11/2025 9:30 AM EST Clinical Support [address] [phone] Julia Lu RN documented as of this encounter Visit Diagnoses Diagnosis Allergy, subsequent encounter documented in this encounter Care Teams Freight Broker Agent Relationship Specialty Start Date End Date Kyra Driscoll MD [address] [place] [address] PCP - General Family Medicine 06/03/19 03/03/24 Elizabeth Dean NP [address] [place] [address] PCP - General Family Medicine 02/25/25 documented as of this encounter
--- OUTSIDE RECORDS SUMMARY | 2025-09-24 07:20 | XMS_ITS | Encounter Summary ---
Author Organization [employer] Address [address] [facility] 7t [place] [address] Care Team Providers Care Assistant Professor Of Marine Biology Name Role Phone Kyra Driscoll MD Primary Care Provide r Elizabeth Dean NP Primary Care Provider [phone] Reason for Visit * Reason Comments Med Refill Encounter Details Date Type Department Care Team ([facility] Contact Info) Description 04/24/2023 Refill [facility] 230 [place], [place] [phone] Kyra Driscoll MD 230 [place], [place] [phone] Allergy, subsequent encounter Social History Tobacco Use [...] Upcoming Encounters Date Type Department Care Team ([facility] Contact Info) Description 10/21/2025 1:00 PM EST Medication Management [address] [address] Juni Haji, HennyD [address] [place] [address] 11/04/2025 1:45 PM EST Office Visit [address] [address] Elizabeth Dean NP [address] [place] [address] 11/11/2025 9:30 AM EST Clinical Support [address] [address] Julia Lu RN documented as of this encounter Visit Diagnoses Diagnosis Allergy, subsequent encounter documented in this encounter Care Teams Assistant Professor Of Marine Biology Relationship Specialty Start Date End Date Kyra Driscoll MD [address] [place] [address] PCP - General Family Medicine 06/03/19 03/03/24 Elizabeth Dean NP [address] [place] [address] PCP - General Family Medicine 02/25/25 documented as of this encounter
--- OUTSIDE RECORDS SUMMARY | 2025-09-24 07:20 | XMS_ITS | Encounter Summary ---
Author Organization [employer] Address [address] [facility] 7t [place] [address] Care Team Providers Care Transportation Supervisor Name Role Phone Kyra Driscoll MD Primary Care Provide r Elizabeth Dean NP Primary Care Provider [phone] Reason for Visit * Reason Comments Med Refill Encounter Details Date Type Department Care Team ([facility] Contact Info) Description 04/22/2023 Refill [facility] 230 [place], [place] [phone] Kyra Driscoll MD [address] [place], [place] [phone] Moderate persistent asthma without complication Social History [...] Department Care Team ([facility] Contact Info) Description 10/21/2025 1:00 PM EST Medication Management [address] [address] Juni Haji, HennyD [address] [place] [address] 11/04/2025 1:45 PM EST Office Visit [address] [address] Elizabeth Dean NP [address] [place] [address] 11/11/2025 9:30 AM EST Clinical Support [address] [address] Julia Lu RN documented as of this encounter Visit Diagnoses Diagnosis Moderate persistent asthma without complication documented in this encounter Care Teams Transportation Supervisor Relationship Specialty Start Date End Date Kyra Driscoll MD [address] [place] [address] PCP - General Family Medicine 06/03/19 03/03/24 Elizabeth Dean NP [address] [place] [address]88 PCP - General Family Medicine 02/25/25 documented as of this encounter
--- OUTSIDE RECORDS SUMMARY | 2025-09-24 07:20 | XMS_ITS | Encounter Summary ---
Author Organization [employer] Address [address] [facility] 7t [place] [address] Care Team Providers Care Audit Machine Operator Name Role Phone Kyra Driscoll MD Primary Care Provide r [place] Dean NP Primary Care Provider [phone] Reason for Visit * Reason Comments Med Refill Encounter Details Date Type Department Care Team (Late st Contact Info) Description 06/13/2023 Refill [facility] 230 [place], [place] [phone] Porfirio Saldivar MD 230 [place], [place] [phone] Uncomplicated opioid dependence (CMS/HCC) Social History Tobacco [...] Description 10/21/2025 1:00 PM EST Medication Management [facility] 230 [place], [place] [phone] Juni Haji, PharmD 230 [place], [place] [phone] 11/04/2025 1:45 PM EST Office Visit [address] [address] Elizabeth Dean NP [address] [place] [address] 11/11/2025 9:30 AM EST Clinical Support [address] [address] Julia Lu RN documented as of this encounter Visit Diagnoses Diagnosis Uncomplicated opioid dependence (CMS/HCC) (HCC) documented in this encounter Care Teams Audit Machine Operator Relationship Specialty Start Date End Date Kyra Driscoll MD [address] [place] [address] PCP - General Family Medicine 06/03/19 03/03/24 Elizabeth Dean NP [address] [place] [address] PCP - General Family Medicine 02/25/25 documented as of this encounter
--- OUTSIDE RECORDS SUMMARY | 2025-09-24 07:21 | XMS_ITS | Encounter Summary ---
Author Organization [facility] Address [address] [facility] [address] [place] [address] Phone Care Team Providers Care Finish Sander Name Role Phone Nohemi Nunez DO Primary Care Provider Encounter Details Date Type Department Care Team (Late st Contact Info) Description 01/15/2018 Ancillary Orders [facility] [address] [place] [address] [place], [place] [phone] Kyle Lundberg DO 146 [place] [address] Tachycardia Social History Tobacco Use Types Packs/Day [...] tachycardia documented in this encounter Care Teams Finish Sander Relationship Specialty Start Date End Date Nohemi Nunez DO [address] [place] [address] PCP - General 11/09/17 documented as of this encounter Additional Source Comments The information contained in this document represents components of the legal health record. It is not the complete legal health record.[facility]
--- OUTSIDE RECORDS SUMMARY | 2025-09-24 07:21 | XMS_ITS | Encounter Summary ---
Author Organization [employer] Address [address] [facility] 7t [place] [address] Care Team Providers Care Track Vehicle Repairer Name Role Phone Kyra Driscoll MD Primary Care Provide r Elizabeth Dean NP Primary Care Provider [phone] Reason for Visit * Reason Comments Med Refill Encounter Details Date Type Department Care Team (Late Contact Info) Description 04/17/2023 Refill [facility] [address] [place], [place] [phone] [facility] [address] [place] [address] Iron deficiency Social History Tobacco Use Types [...] Description 10/21/2025 1:00 PM EST Medication Management [address] [address] Juni Haji, PharmD 230 [place] [address] 11/04/2025 1:45 PM EST Office Visit [address] [address] Elizabeth Dean NP [address] [place] [address] 11/11/2025 9:30 AM EST Clinical Support [address] [address] Julia Lu RN documented as of this encounter Visit Diagnoses Diagnosis Iron deficiency Disorders of iron metabolism documented in this encounter Care Teams Track Vehicle Repairer Relationship Specialty Start Date End Date Kyra Driscoll MD [address] [place] [address] PCP - General Family Medicine 06/03/19 03/03/24 Elizabeth Dean NP [address] [place] [address] PCP - General Family Medicine 02/25/25 documented as of this encounter
--- OUTSIDE RECORDS SUMMARY | 2025-09-24 07:21 | XMS_ITS | Encounter Summary ---
Author Organization [employer] Address 75 [facility] 7t [place] [address] Care Team Providers Care Underwear Cutter Name Role Phone Kyra Driscoll MD Primary Care Provide r [place] Dean NP Primary Care Provider [phone] Reason for Visit * Reason Comments Med Refill Encounter Details Date Type Department Care Team ([facility] Contact Info) Description 02/06/2023 Refill [facility]INE 230 [place] [address] Rachel Cash FNP 505 [place] [address] IFG (impaired fasting glucose); Uncomplicated opioid dependence [...] Upcoming Encounters Date Type Department Care Team ([facility] Contact Info) Description 10/21/2025 1:00 PM EST Medication Management [address] [address] Juni Haji, Liliana [address] [place] [address] 11/04/2025 1:45 PM EST Office Visit [address] [address] Elizabeth Dean NP [address] [place] [address] 11/11/2025 9:30 AM EST Clinical Support [address] [address] Julia Lu RN documented as of this encounter Visit Diagnoses Diagnosis IFG (impaired fasting glucose) Uncomplicated opioid dependence (CMS/HCC) (HCC) documented in this encounter Care Teams Underwear Cutter Relationship Specialty Start Date End Date Kyra Driscoll MD [address] [place] [address] PCP - General Family Medicine 06/03/19 03/03/24 Elizabeth Dean NP [address] [place] [address] PCP - General Family Medicine 02/25/25 documented as of this encounter
--- OUTSIDE RECORDS SUMMARY | 2025-09-24 07:21 | XMS_ITS | Encounter Summary ---
Author Organization [employer] Address [address] [facility] 7t [place] [address] Care Team Providers Care Coding Compliance Auditor Name Role Phone Kyra Driscoll MD Primary Care Provide r [place] Dean NP Primary Care Provider [phone] Reason for Visit * Reason Onset Date Comments Durable Medical Equipment 03/28/2023 Encounter Details Date Type Department Care Team (Late st Contact Info) Description 03/28/2023 Telephone [facility] MED[facility]INE 230 [place], [place] [phone] Kyra Driscoll MD 230 [place], [place] [phone] Durable Medical Equipment Social History Tobacco Use [...] Description 10/21/2025 1:00 PM EST Medication Management [address] [address] Juni Haji, PharmD [address] [place] [address] 11/04/2025 1:45 PM EST Office Visit [address] [address] Elizabeth Dean NP [address] [place] [address] 11/11/2025 9:30 AM EST Clinical Support [address] [address] Julia Lu RN documented as of this encounter Visit Diagnoses Not on filedocumented in this encounter Care Teams Coding Compliance Auditor Relationship Specialty Start Date End Date Kyra Driscoll MD [address] [place] [address] PCP - General Family Medicine 06/03/19 03/03/24 Elizabeth Dean NP [address] [place] [address] PCP - General Family Medicine 02/25/25 documented as of this encounter
--- OUTSIDE RECORDS SUMMARY | 2025-09-24 07:21 | XMS_ITS | Encounter Summary ---
Author Organization [employer] Address 75 [facility] 7t [place] [address] Care Team Providers Care Celebrity Chef Entrepreneur Media Personality Name Role Phone Kyra Driscoll MD Primary Care Provide r [place] Dean NP Primary Care Provider [phone] Reason for Visit * Reason Comments Med Refill Encounter Details Date Type Department Care Team ([facility] st Contact Info) Description 02/25/2023 Refill [facility]INE 230 [place], [place] [phone] Porfirio Saldivar MD 230 [place], [place] [phone] Uncomplicated opioid dependence (CMS/HCC) Social History Tobacco [...] Description 10/21/2025 1:00 PM EST Medication Management [address] [address] Juni Haji, HennyD [address] [place] [address] 11/04/2025 1:45 PM EST Office Visit [address] [address] Elizabeth Dean NP [address] [place] [address] 11/11/2025 9:30 AM EST Clinical Support [address] [address] Julia Lu RN documented as of this encounter Visit Diagnoses Diagnosis Uncomplicated opioid dependence (CMS/HCC) (HCC) documented in this encounter Care Teams Celebrity Chef Entrepreneur Media Personality Relationship Specialty Start Date End Date Kyra Driscoll MD [address] [place] [address] PCP - General Family Medicine 06/03/19 03/03/24 Elizabeth Dean NP [address] [place] [address] PCP - General Family Medicine 02/25/25 documented as of this encounter
--- OUTSIDE RECORDS SUMMARY | 2025-09-24 07:21 | XMS_ITS | Encounter Summary ---
Author Organization [employer] Address [address] [facility] 7t [place] [address] Care Team Providers Care Computer Education Professor Name Role Phone Kyra Driscoll MD Primary Care Provide r [place] Dean NP Primary Care Provider [phone] Reason for Visit * Reason Comments Med Refill Encounter Details Date Type Department Care Team (Late Contact Info) Description 03/10/2023 Refill [facility] MEDICINE 230 [place], [place] [phone] Nurys Mcdonnell MD 230 [place], [place] [phone] Allergy, subsequent encounter Social History Tobacco Use [...] Care Team ([facility] Contact Info) Description 10/21/2025 1:00 PM EST Medication Management [address] [address] Juni Haji, PharmD 230 [place] [address] 11/04/2025 1:45 PM EST Office Visit [address] [address] Elizabeth Dean NP [address] [place] [address] 11/11/2025 9:30 AM EST Clinical Support [address] [address] Julia Lu RN documented as of this encounter Visit Diagnoses Diagnosis Allergy, subsequent encounter documented in this encounter Care Teams Computer Education Professor Relationship Specialty Start Date End Date Kyra Driscoll MD [address] [place] [address] PCP - General Family Medicine 06/03/19 03/03/24 Elizabeth Dean NP [address] [place] [address] [phone] PCP - General Family Medicine 02/25/25 documented as of this encounter
--- OUTSIDE RECORDS SUMMARY | 2025-09-24 07:21 | XMS_ITS | Patient Health Record ---
Author Organization [employer] Address [address] [place] [address] [address] [place] [address] Care Team Providers Care Head Bander And Liner Operator Name Role Phone Bhavesh Lopez Primary Care Provider [phone] Reason For Referral No Information Medications Medication SIG (Take, Route, Frequency, Duration) Notes Start Date End Date Status Lisinopril-hydroCHLOROthiazi d e 20-25 MG 1 tablet Orally Once a day; Duration: 30 day(s) 07/30/2012 Active Voltaren 1 % as directed Transdermal 4 GRAM AFECTED AREA; Duration: 30 days 11/09/2012 Active Advair Diskus 250-50 MCG/DOSE 1 puff Inh alation Twice a day; Duration: 30 days 07/16/2012 Active Hydroxychloroquine Sulfate 200 MG 1 tablet with food or milk Orally Once a day; Duration: 10 day(s) Active Viibryd 40 MG 1 tablet with food Orally Once a day; Duration: 30 day(s) 10/19/2012 Active Percocet 5-325 MG 1 tablet as needed Orally every 6 hrs; Duration: 30 days Active Ultram 50 MG 1 tablet as needed for pain Orally every 6 hrs; Duration: 30 days 06/18/2012 Active Methotrexate 2.5 MG 1 tablet Orally 6 tablets once a week; Duration: 30day(s) Active Folic Acid 1 MG as directed Orally daily; Duration: 30 days Active Sulindac 200 MG 1 tablet with food Orally BID; Duration: 30 day(s) Active amLODIPine Besylate 10 MG 1 tablet Orall y Once a day; Duration: 30 day(s) 09/03/2012 Active miSOPROStol 100 MCG 1 tablet with meals and at bedtime Orally BID; Duration: 30 day(s) Active Anusol-HC 25 MG 1 suppository Rectal Twice a day; Duration: 14 day(s) 09/24/2012 Active Flexeril 10 MG 1 tablet Orally Thre e times a day; Duration: 30 day(s) 06/18/2012 Active Proctosol HC 2.5 % 1 application to affected area Rectal Twice a day EXTERNAL AREA; Duration: 30 day(s) 09/24/2012 Active Albuterol Sulfate (2.5 MG/3ML) 0.083% 3 ml Inhalation Three times a day; Duration: 30 days 07/16/2012 Active Albuterol Sulfate HFA 108 (9 0 Base) MCG/ACT 2 puffs as needed Inhalation every 6 hours; Duration: 30 days 07/16/2012 Active Problems Problem Type SNOMED Code ICD Code Onset Dates Problem Status W/U Status Risk Notes Problem Anxiety state (547637943) Anxiety state, unspecified (300.00) Active confirmed Problem Depressive disorder (75516898) Depressive disorder, not elsewhere classified (311) Active confirmed Problem Internal hemorrhoids (disorder) (95504776) Internal hemorrhoids without mention of complication (455.0) Active confirmed Problem Asthma (disorder) (762447735) Asthma, unspecified, unspecified status (493.90) Active confirmed Problem Disturbance of skin sensation (380260443) Disturbance of skin sensation (782.0) Active confirmed Problem Essential hypertension (19507384) HTN Hypertension essential uns (401.9) Active confirmed Problem Muscle pain (54015290) Myalgia and myositis Uns (729.1) Active confirmed Plan Of Treatment Pending Test Test Name Order Date MRI : Knee, right with/without contrast 09/03/2012 X ray : Spines, dorsal 06/18/2012 X ray : Lumbar Spine 2-3 Views 2 X ray : Cervical spine w/obliques 5 AP R /L 06/18/2012 MRI : Lumbar without contrast 07/16/2012 PAIN MANAGEMENT PROFILE 1 W/ CONFIRMATIO N, URINE-Q 10/19/2012 ANACHOICE(R) SPECIFIC AB CASCADING REFLE X 06/18/2012 Insurance Providers Payer Name Payer Address Payer Phone Subscriber Number Group Number Insured Name Patient Relationship to Insured Coverage Start Date Coverage End Date [facility] [address] [address] [place], [place] [id number] Christie Ortiz Self - patient is the insured Medications Administered Medication Instructions Date of Administration Dosage Notes Solumedrol up to 125 mg 07/16/2012 Medical (General) History Medical History History ICD Code fibromyalgia Surgical History Surgery Date(Month/Year) gastric bypass tummy tuck breast reduction left wrist tubaligation Hospitalization History Reason Date(Month/Year)
--- OUTSIDE RECORDS SUMMARY | 2025-09-24 07:21 | XMS_ITS | Encounter Summary ---
Author Organization [employer] Address 75 [facility] 7t [place] [address] Care Team Providers Care Directional Driller Name Role Phone Kyra Driscoll MD Primary Care Provide r [place] Dean NP Primary Care Provider [phone] Reason for Visit * Reason Comments Med Refill Encounter Details Date Type Department Care Team (Late Contact Info) Description 03/15/2023 Refill [facility] 505 [place], [place] [phone] Nurys Mcdonnell MD 230 [place] [address] Other migraine without status migrainosus, not intractable [...] Upcoming Encounters Date Type Department Care Team ([facility] Contact Info) Description 10/21/2025 1:00 PM EST Medication Management [address] [address] Juni Haji, HennyD [address] [place] [address] 11/04/2025 1:45 PM EST Office Visit [address] [address] Elizabeth Dean NP [address] [place] [address] 11/11/2025 9:30 AM EST Clinical Support [address] [address] Julia Lu RN documented as of this encounter Visit Diagnoses Diagnosis Other migraine without status migrainosus, not intractable documented in this encounter Care Teams Directional Driller Relationship Specialty Start Date End Date Kyra Driscoll MD [address] [place] [address] PCP - General Family Medicine 06/03/19 03/03/24 Elizabeth Dean NP [address] [place] [address] PCP - General Family Medicine 02/25/25 documented as of this encounter
--- OUTSIDE RECORDS SUMMARY | 2025-09-24 07:21 | XMS_ITS | Clinical Summary ---
Author [facility] Address [address] [place] [address] Care Team Providers Care Animal Rescuer Name Role Phone Kyra Driscoll MD Primary Care Provide r Surgical History Surgery Date Site/Laterality Comments TUBAL LIGATION 2006 Bilateral PROCEDURE: HISTORICAL TUBAL LIGATION OTHER SURGICAL HISTORY 2006 PROCEDURE: ND HYSTEROSCOPY ENDOMETRIAL ABLATION GASTRIC BYPASS 2003 PROCEDURE: GASTRIC BYPASS FOR OBESIT; COMMENT: revision 2019 BREAST REDUCTION 2002 PROCEDURE: ND BREAST REDUCTION OTHER SURGICAL HISTORY 2009 PROCEDURE: ---- HEMORRHOIDS ---- CARPAL TUNNEL RELEASE 2010 PROCEDURE: ND NEUROPLASTY &/TRANSPOS MEDIAN NRV CARPAL TUNNE KNEE ARTHROPLASTY Right PROCEDURE: ND ARTHRS KNEE ABRASION ARTHRP/OIL FIRE SPECIALIST DRLG/MICROFX BACK SURGERY PROCEDURE: HISTORICAL BACK SURGERY; COMMENT: lower back ? 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 ([facility] V24, [facility] V28) DX:Opioid depend w opioid-in maxime psychotic disorder w delusions ([facility]) Back pain DX:Back pain Cramps of lower extremity DX:Medical Health Researcher mps of lower extremity Gastric bypass status for obesity DX:Gastric bypass status for obesity Knee pain DX:Knee pain Back pain DX:Back pain Systolic murmur DX:Systolic murm ur Seizure disorder ([facility] V2 4, [facility] V28) DX:Seizure disorder ([facility]) Bilateral hearing loss DX:Bilate ral hearing loss Bronchitis DX:Bronchitis Migraine DX:Migraine Scalp psoriasis DX:Scalp psorias is Bipolar 1 disorder (CMS/[facility] V24, [facility]/HCC V28) DX:Bipolar 1 disorder (HCC) Family [...] RESULTING AGENCY - 03/27/2020 12:15 PM EDT [id number] THINPREP PAP, IMAGED: NEGATIVE FOR SQUAMOUS INTRAEPITHELIAL [...] Recently Relevant to Health Maintenance Care Teams Animal Rescuer Relationship Specialty Start Date End Date Kyra Driscoll MD [address] [phone] PCP - General Internal Medicine 08/13/21
--- OUTSIDE RECORDS SUMMARY | 2025-09-24 07:21 | XMS_ITS | Encounter Summary ---
Author Organization [employer] Address [address] [facility] 7t [place] [address] Care Team Providers Care Machine Bobbin Winder Name Role Phone Kyra Driscoll MD Primary Care Provide r Elizabeth Dean NP Primary Care Provider [phone] Reason for Visit * Reason Comments Med Refill Encounter Details Date Type Department Care Team (Late st Contact Info) Description 06/07/2023 Refill [facility] MED & PEDS [address] [place], [place] [phone] Kyra Driscoll MD [address] [place], [place] [phone] Chronic nausea; Allergy, subsequent encounter Social History [...] Description 10/21/2025 1:00 PM EST Medication Management [facility] MEDICINE [address] [place], [place] [phone] Juni Haji, PharmD [address] [place], [place] [phone] 11/04/2025 1:45 PM EST Office Visit [address] [address] Elizabeth Dean NP [address] [place] [address] 11/11/2025 9:30 AM EST Clinical Support [address] [address] Julia Lu RN documented as of this encounter Visit Diagnoses Diagnosis Chronic nausea Nausea alone Allergy, subsequent encounter documented in this encounter Care Teams Machine Bobbin Winder Relationship Specialty Start Date End Date Kyra Driscoll MD [address] [place] [address] PCP - General Family Medicine 06/03/19 03/03/24 Elizabeth Dean NP [address] [place] [id number] PCP - General Family Medicine 02/25/25 documented as of this encounter
--- OUTSIDE RECORDS SUMMARY | 2025-09-24 07:22 | XMS_ITS | Encounter Summary ---
Author Organization [employer] Address [address] [facility] 7t [place] [address] Care Team Providers Care [employer] Member Name Role Phone Elizabeth Dean NP Primary Care Provider [phone] Reason for Visit * Reason Comments Med Refill Encounter Details Date Type Department Care Team ([facility] Contact Info) Description 03/27/2025 Refill [facility] MEDICINE [address] [place], [place] [phone] Elizabeth Dean NP [address] [place], [place] [phone] Other muscle spasm Social History Tobacco Use [...] Description 10/21/2025 1:00 PM EST Medication Management [address] [address] Juni Haji, PharmD [address] [place] [address] 11/04/2025 1:45 PM EST Office Visit [address] [address] Elizabeth Dean NP [address] [place] [address] 11/11/2025 9:30 AM EST Clinical Support [address] [address] Julia Lu RN documented as of this encounter Visit Diagnoses Diagnosis Other muscle spasm documented in this encounter Additional Health Concerns Assessment Noted Time PHQ-9 Depression Total Score: 19 025 7:51 AM EDT documented as of this encounter Care Teams [employer] Member Relationship Specialty Start Date End Date Elizabeth Dean NP [address] [place] [address] PCP - General Family Medicine 02/25/25 documented as of this encounter
--- OUTSIDE RECORDS SUMMARY | 2025-09-24 07:22 | XMS_ITS | Encounter Summary ---
Author Organization [facility] Address [address] [place] [address] Phone Care Team Providers Care Power Barker Name Role Phone Nohemi Nunez Primary Care Provider [phone] Encounter Details Date Type Department Care Team (Late st Contact Info) Description 01/16/2019 Ancillary Orders [facility] [address] [place] [address] Zora Hughes PA [address] [place] [address] [email or web address] Palpitations Social History Tobacco Use Types Packs/Day [...] Palpitations documented in this encounter Care Teams Power Barker Relationship Specialty Start Date End Date Nohemi Nunez DO [address] [place] [address] PCP - General 11/09/17 documented as of this encounter Additional Source Comments The information contained in this document represents components of the legal health record. It is not the complete legal health record.[facility]
--- OUTSIDE RECORDS SUMMARY | 2025-09-24 07:22 | XMS_ITS | Encounter Summary ---
Author Organization [employer] Address [address] [facility] 7[address] [place] [address] Care Team Providers Care Sales Advisor Name Role Phone Elizabeth Dean MARCO Primary Care Provider [phone] Reason for Visit * Reason Comments Med Refill Encounter Details Date Type Department Care Team ([facility] st Contact Info) Description 03/25/2025 Refill [facility] MEDICINE [address] [place], [place] [phone] Porfirio Saldivar MD [address] [place], [place] [phone] Uncomplicated opioid dependence (CMS/HCC) Social History Tobacco [...] Description 10/21/2025 1:00 PM EST Medication Management [address] [address] Juni Haji, PharmD [address] [place] [address] 11/04/2025 1:45 PM EST Office Visit [address] [address] Elizabeth Dean NP [address] [place] [phone] 11/11/2025 9:30 AM EST Clinical Support [address] [address] Julia Lu, BEN documented as of this encounter Visit Diagnoses Diagnosis Uncomplicated opioid dependence (CMS/HCC) (HCC) documented in this encounter Additional Health Concerns Assessment Noted Time PHQ-9 Depression Total Score: 19 025 7:51 AM EDT documented as of this encounter Care Teams Sales Advisor Relationship Specialty Start Date End Date Elizabeth Dean NP [address] [place] [id number] PCP - General Family Medicine 02/25/25 documented as of this encounter
--- OUTSIDE RECORDS SUMMARY | 2025-09-24 07:22 | XMS_ITS | Clinical Summary ---
Author Organization [employer] Address [address] [facility] [address] [place] [address] Care Team Providers Care Panel Monitor Name Role Phone Elizabeth Dean MARCO Primary Care Provider [phone] Allergies Active Allergy Reactions Criticality Noted Date Comments Latex 12/02/2022 Other reaction(s): rash Onion Anaphylaxis High 02/04/2013 Shellfish Allergy 10/18/2022 Other reaction(s): swelling, rash Medications * This document contains information received from the source organization and may not represent a complete record from that organization. Blood Pressure Monitoring (Omron 3 Series BP Monitor) device USE ONCE DAILY DIRECTED 022 Active cromolyn (Opticrom) 4 % ophthalmic solution Administer 1 drop into affected eye(s) every 6 (six) hours. 019 Active fluticasone (Flonase) 50 MCG/ACT nasal spray Administer 1 spray into affected nostril(s) every 12 (twelve) hours. 018 Active FREESTYLE LITE test stripIndications :IFG (impaired fasting glucose) TEST BLOOD SUGAR TWICE DAILY 100 each 11 023 Active TRUEplus Lancets 33G miscIndications: IFG (impaired fasting glucose) TEST BLOOD SUGAR TWICE DAILY 100 each 11 023 Active Multiple Vitamin (Multivitamin) tablet TAKE 1 TABLET BY MOUTH TWICE DAILY IN THE MORNING AND IN THE EVENING WITH FOOD 180 tablet 3 023 Active folic acid (Folvite) 1 MG tablet TAKE 1 TABLET BY MOUTH EVERY MORNING 90 tablet 023 Active TRUEplus Glucose On The Go 4 g chewable tabletIndication s:IFG (impaired fasting glucose) CHEW 4 TABLETS BY MOUTH NEEDED FOR BLOOD SUGAR (<70 MG/DL) DIRECTED 40 tablet 1 06/23/2 023 Active Spacer/Aero-Hold ing Chambers (OptiChamber Sophia) misc 1 each every 4 (four) hours if needed (asthma). 1 each 025 Active Blood Glucose Monitoring Suppl (ONE TOUCH ULTRA 2) w/Device kitIndications:H ypoglycemia 1 Units if needed in the morning, at noon, in the evening, and at bedtime (hypoglycmia). Use to check blood sugar once daily by fingerstick route 1 kit 025 Active glucose blood (OneTouch Ultra Test) test stripIndications :Hypoglycemia 1 each by Other route if needed in the morning, at noon, in the evening, and at bedtime (hypoglcemia). Use to check blood sugar by subcutaneous route once daily 100 each 3 025 Active magnesium oxide (Mag-Ox) 400 MG tablet [...] fingerstick route once daily. 100 each 2 025 Active diphenhydrAMINE (Colleen-Dryl) 25 MG tabletIndication s:Allergy, subsequent encounter TAKE 2 TABLETS BY MOUTH EVERY 4 TO 6 HOURS NEEDED 60 tablet 025 Active Alcohol Swabs (Alcohol Prep) 70 % padsIndications: IFG (impaired fasting glucose) Use twice daily 100 each 11 025 Active naloxone (Narcan) 4 mg/0.1 mL nasal spray FOR SUSPECTED OPIOID OVERDOSE. SPRAY 0.1mL IN ONE NOSTRIL. REPEAT IN ALTERNATE NOSTRIL 2-3 MINUTES IF NEEDED. SEEK MEDICAL ATTENTION IMMEDIATELY EVEN IF PATIENT RESPONDS. 2 each 08/22/2 025 Active primidone (Mysoline) 50 MG tablet TAKE 1/2 TABLET BY MOUTH AT BEDTIME 15 tablet 2 09/19/20 25 1:26 PM EST Active albuterol (2.5 MG/3ML) 0.083% nebulizer solutionIndicati ons:Moderate persistent asthma without complication USE 1 AMPULE USING A NEBULIZER EVERY 6 HOURS NEEDED 90 mL 1 025 Active clobetasol (Temovate) 0.05 % external solutionIndicati ons:Seborrheic dermatitis APPLY TO THE AFFECTED AREA(S) THREE TIMES PER WEEK 50 mL 1 09/19/20 25 1:26 PM EST Active docusate sodium (Colace) 100 MG capsule TAKE 1 CAPSULE BY MOUTH TWICE DAILY IN THE MORNING AND IN THE EVENING 180 capsule 1 09/19/20 25 1:26 PM EST Active Fluticasone Furoate-Vilanter ol (Breo Ellipta) 200-25 MCG/ACT aerosol powder Inhale 1 puff Once per day. 30 each 1 09/19/20 25 1:26 PM EST 025 2024 Active OXcarbazepine (Trileptal) 600 MG tabletIndication s:Seizure (CMS/HCC) ([facility]) Take 1 tablet (600 mg) by mouth 2 times daily. 60 tablet 2 Active ondansetron ODT (Zofran-ODT) 4 MG disintegrating tabletIndication s:Chronic nausea DISSOLVE 1 TABLET BY MOUTH EVERY TWELVE HOURS DIRECTED 30 tablet 1 Active montelukast (Singulair) 10 MG tabletIndication s:COPD (chronic obstructive pulmonary disease) with chronic bronchitis (CMS/HCC) ([facility]) Take 1 tablet (10 mg) by mouth at bedtime. 90 tablet 3 Active topiramate (Topamax) 25 MG tablet Take 1 tablet (25 mg) by mouth Once per day. 30 tablet 2 025 2025 Active Ketotifen Fumarate 0.035 % solutionIndicati ons:Seasonal allergic rhinitis due to pollen INSTILL 1 DROP IN EACH EYE TWICE DAILY IN THE MORNING AND AT BEDTIME NEEDED FOR ITCHING OR FOR ALLERGIES 10 mL 2 Active prazosin (Minipress) 1 MG capsule TAKE 1 CAPSULE BY MOUTH EVERY DAY AT BEDTIME NEEDED 30 capsule 1 09/19/20 25 1:26 PM EST Active EPINEPHrine (Epipen) 0.3 MG/0.3ML injection syringeIndicatio ns:Allergy, subsequent encounter INJECT INTRAMUSCULARLY DIRECTED ON PACKAGE AND GO TO EMERGENCY ROOM 2 each 2 Active tiZANidine (Zanaflex) 4 MG tabletIndication s:Other muscle spasm TAKE 1 TABLET BY MOUTH EVERY 8 HOURS NEEDED, DO NOT EXCEED 3 TABLETS / DAY 90 tablet Active fexofenadine (Nupur) 180 MG tabletIndication s:Allergy, subsequent encounter TAKE 1 TABLET BY MOUTH EVERY DAY 90 tablet 09/19/20 25 1:26 PM EST Active gabapentin (Neurontin) 800 MG tabletIndication s:Neuropathic pain TAKE 1 TABLET BY MOUTH THREE TIMES DAILY 270 tablet 09/19/20 25 1:26 PM EST Active Buprenorphine HCl-Naloxone HCl (Suboxone) 8-2 MG SL filmIndications: Uncomplicated opioid dependence (CMS/HCC) ([facility]) Place 1 Film under the tongue 3 times daily. 84 Film 1 2025 Active busPIRone (Buspar) 7.5 MG tablet Take 1 tablet by mouth 2 times daily. Active methotrexate 2.5 MG tablet TAKE 6 TABLETS BY MOUTH ONCE A WEEK ON THE SAME DAY Active QUEtiapine (SEROquel) 25 MG tablet Take 1 tablet by mouth at bedtime. Active lamoTRIgine (LaMICtal) 25 MG tablet Take 1 tablet (25 mg) by mouth every other day. 30 tablet 2 025 2024 Active acetaminophen (Tylenol 8 Hour) 650 MG ER tablet Take 1 tablet by mouth every 8 (eight) hours if needed for pain. Active acetaminophen (Tylenol) 500 MG tablet Take 1 tablet by mouth every 6 (six) hours. 2024 Discontinued( Med list cleanup (will not trigger notification to Pharmacy)) acarbose (Precose) 50 MG tablet Take 50 mg by mouth 3 times daily. 2024 Discontinued( Med list cleanup (will not trigger notification to Pharmacy)) baclofen (Lioresal) 10 MG tablet Take 1 tablet by mouth in the morning and 1 tablet at noon and 1 tablet in the evening. 2024 Discontinued( Med list cleanup (will not trigger notification to Pharmacy)) calcium carbonate (Os-Doron) 1250 (500 Ca) MG chewable tablet Chew 1 tablet in the morning. 019 2024 Discontinued( Med list cleanup (will not trigger notification to Pharmacy)) clonazePAM (KlonoPIN) 1 MG tablet TAKE 1 TABLET BY MOUTH EVERY MORNING and TAKE 2 TABLETS BY MOUTH EVERY DAY AT BEDTIME 2024 Discontinued( Med list cleanup (will not trigger notification to Pharmacy)) Continuous Blood Gluc Wash Box Operator (FreeStyle Cindy 2 [place]) device USE DIRECTED 2024 Discontinued( Med list cleanup (will not trigger notification to Pharmacy)) Continuous Blood Gluc Sensor (FreeStyle Cindy 2 Sensor) misc USE DIRECTED. CHANGE EVERY 14 DAYS 2024 Discontinued( Med list cleanup (will not trigger notification to Pharmacy)) cyclobenzaprine (Flexeril) 10 MG tablet Take 10 mg by mouth if needed in the morning, at noon, and at bedtime. 2024 Discontinued( Med list cleanup (will not trigger notification to Pharmacy)) dexAMETHasone (Decadron) 1 MG tablet Take 1 mg by mouth 1 (one) time. 2024 Discontinued( Med list cleanup (will not trigger notification to Pharmacy)) Diclofenac Sodium 1 % gel Apply topically every 8 (eight) hours. 2024 Discontinued( Med list cleanup (will not trigger notification to Pharmacy)) dilTIAZem ER (Tiazac) 240 MG 24 hr capsule Take 240 mg by mouth. 018 2024 Discontinued( Med list cleanup (will not trigger notification to Pharmacy)) fluocinolone (Nokomis-Smoothe) 0.01 % external oil apply by topical route thin layer to damp scalp massage well and cover use for twice weekly. Leave for overnight then wash off 2024 Discontinued( Med list cleanup (will not trigger notification to Pharmacy)) glucose-vitamin C 4-6 GM-MG oral gel take one in case of low blood sugar 2024 Discontinued( Med list cleanup (will not trigger notification to Pharmacy)) hydroxychloroqui ne (Plaquenil) 200 MG tablet Take 1 tablet by mouth in the morning. 2024 Discontinued( Med list cleanup (will not trigger notification to Pharmacy)) meclizine (Antivert) 25 MG tablet Take 25 mg by mouth if needed in the morning, at noon, and at bedtime. 2024 Discontinued( Med list cleanup (will not trigger notification to Pharmacy)) nabumetone (Relafen) 500 MG tablet Take 1 tablet by mouth every 12 (twelve) hours. 2024 Discontinued( Med list cleanup (will not trigger notification to Pharmacy)) omeprazole (PriLOSEC) [address] capsule Take 1 capsule by mouth every 12 (twelve) hours. 2024 Discontinued( Med list cleanup (will not trigger notification to Pharmacy)) pancrelipase, Fuu-Jbmw-Dons, (Creon) 1337-9748 units capsule Take 1 capsule by mouth. 2024 Discontinued( Med list cleanup (will not trigger notification to Pharmacy)) thiamine (Vitamin B-1) 50 MG tablet Take 50 mg by mouth at bedtime. 2024 Discontinued( Med list cleanup (will not trigger notification to Pharmacy)) cholecalciferol (D3-5) 5,000 Units tablet Take 1 capsule by mouth in the morning. 2024 Discontinued( Med list cleanup (will not trigger notification to Pharmacy)) diphenhydrAMINE (BENADryl) 25 MG capsuleIndicatio ns:Allergy, subsequent encounter Take 2 capsules (50 mg) by mouth every 6 (six) hours if needed for sleep or allergies. 30 capsule 3 2024 Discontinued( Med list cleanup (will not trigger notification to Pharmacy)) mupirocin (Bactroban) 2 % ointmentIndicati ons:Folliculitis APPLY TOPICALLY TO AFFECTED AREA(S) THREE TIMES DAILY IN THE MORNING, AT NOON, AND AT BEDTIME FOR 10 DAYS 22 g 3 023 2024 Discontinued( Med list cleanup (will not trigger notification to Pharmacy)) gabapentin (Neurontin) 600 MG tabletIndication s:Chronic bilateral low back pain without sciatica TAKE 1 TABLET BY MOUTH THREE TIMES DAILY IN THE MORNING, EVENING, AND BEDTIME 90 tablet 1 023 2024 Discontinued( Med list cleanup (will not trigger notification to Pharmacy)) Ascorbic Acid (vitamin C) 250 MG tablet TAKE 1 TABLET BY MOUTH THREE TIMES DAILY IN THE MORNING, AT NOON, AND IN THE EVENING 90 tablet 11 023 2024 Discontinued( Med list cleanup (will not trigger notification to Pharmacy)) ferrous sulfate (FeroSul) 325 (65 Fe) MG tabletIndication s:Iron deficiency TAKE 1 TABLET BY MOUTH THREE TIMES DAILY IN THE MORNING, AT NOON, AND IN THE EVENING 90 tablet 5 2024 Discontinued( Med list cleanup (will not trigger notification to Pharmacy)) Vitamin E 45 MG (100 UNIT) capsule TAKE 1 CAPSULE BY MOUTH EVERY EVENING 90 capsule 3 023 2024 Discontinued( Med list cleanup (will not trigger notification to Pharmacy)) cyanocobalamin (Vitamin B-12) 1000 MCG tablet TAKE 1 TABLET BY MOUTH EVERY MORNING 90 tablet 3 023 2024 Discontinued( Med list cleanup (will not trigger notification to Pharmacy)) butalbital-aceta minophen-caffein e 50-325-40 MG tablet TAKE 1 TO 2 TABLETS BY MOUTH IF NEEDED FOR SEVERE HEADACHE, NOT TO EXCEED 2 TABLETS PER DAY 20 tablet 023 2024 Discontinued( Med list cleanup (will not trigger notification to Pharmacy)) docusate [...] eyes). 10 mL 2 025 2024 Discontinued lamoTRIgine (LaMICtal) 25 MG tablet Take 1 tablet (25 mg) by mouth every other day. 30 tablet 2 2024 Discontinued( Reorder (will not trigger notification to Pharmacy)) fexofenadine (Nupur) 180 MG tabletIndication s:Allergy, subsequent encounter Take 1 tablet (180 mg) by mouth Once per day. 90 tablet 2024 Discontinued gabapentin (Neurontin) 800 MG tabletIndication s:Neuropathic pain Take 1 tablet (800 mg) by mouth 3 times daily. 270 tablet 2024 Discontinued prazosin (Minipress) 1 MG capsule TAKE 1 CAPSULE BY MOUTH EVERY DAY AT BEDTIME NEEDED (NIGHTMARES) 30 capsule 1 2024 Discontinued EPINEPHrine (Epipen) 0.3 MG/0.3ML injection syringeIndicatio ns:Allergy, subsequent encounter INJECT INTRAMUSCULARLY DIRECTED ON PACKAGE AND GO TO EMERGENCY ROOM 2 each 2 2024 Discontinued escitalopram (Lexapro) 5 MG tabletIndication s:Major depressive disorder in full remission, unspecified whether recurrent (CMS/HCC) TAKE 1 TABLET BY MOUTH EVERY DAY 30 tablet 1 2024 Discontinued( Med list cleanup (will not trigger notification to Pharmacy)) Suboxone 8-2 MG SL filmIndications: Uncomplicated opioid dependence (CMS/HCC) (HCC) Place 1 Film under the tongue 3 times daily for 28 days. 84 Film 2024 Discontinued( Reorder (will not trigger notification to Pharmacy)) Vraylar 1.5 MG capsule TAKE 1 CAPSULE BY MOUTH ONCE DAILY 30 capsule 025 2024 Discontinued( Med list cleanup (will not trigger notification to Pharmacy)) tiZANidine (Zanaflex) 4 MG tabletIndication s:Other muscle spasm TAKE 1 TABLET BY MOUTH EVERY 8 HOURS NEEDED. DO NOT EXCEED 3 TABLETS PER DAY. 90 tablet 025 2024 Discontinued ondansetron (Zofran) 4 MG tabletIndication s:Nausea,Anxiety TAKE 2 TABLETS BY MOUTH EVERY 12 HOURS NEEDED FOR NAUSEA AND VOMITING FOR UP TO 7 DAYS 20 tablet 025 2024 Discontinued( Med list cleanup (will not trigger notification to Pharmacy)) Blood Pressure kit 1 kit Once per day. 1 kit 2024 Discontinued( Med list cleanup (will not trigger notification to Pharmacy)) Ubrogepant (Ubrelvy) 100 MG tabletIndication s:Other migraine without status migrainosus, intractable Take 1 tablet (100 mg) by mouth Once daily as needed (headache) for up to 28 days. 14 tablet 1 2024 Suboxone 8-2 MG SL filmIndications: Uncomplicated opioid dependence (CMS/HCC) ([facility]) Place 1 Film under the tongue 3 times daily for 28 days. 84 Film 2024 Discontinued( Med list cleanup (will not [...] reviewed with Dr. Heidi Foreman called to [facility] and pt transported via ambulance Seizures ([facility]) 02/28/2025 NARCISO positive 02/28/2025 Class [...] radiculopathy 01/13/2025 Mixed bipolar affective disorder, mild ([facility]) 01/13/2025 Assessment & Plan (04/07/2025 4:20 PM EDT): Referral to psychiatry, Renewed meds Multiple sclerosis 01/13/2025 Spasm 01/13/2025 Systemic lupus erythematosus ([facility]) Assessment & Plan (03/11/2025 11:55 [...] has an open endo referral. I called [facility] endo. They said they recently lost 4 or 5 providers so they are booked out until October. They happened to have an open appointment MondayMarch 06 at 1545. [address], [address], [place]. I called patient and informed her of her appointment. Migraine headache 12/02/2022 Neck pain 12/02/2022 Obstructive sleep apnea syndrome 12/02/2022 Assessment & Plan (08/25/2025 1:04 PM EDT): Orders: Referral to Sleep Medicine; Future Pain in elbow 12/02/2022 Positive antinuclear antibody 12/02/2022 Rash 12/02/2022 Seropositive rheumatoid arthritis ([facility]) 11/07 Assessment & Plan (03/11/2025 [...] Dermatochalasis of both upper eyelids 03/15/2019 Seizure ([facility]) 03/15/2019 Assessment & Plan (08/25/2025 [...] obstructive pu lmonary disease) with chronic bronchitis ([facility]) 11/29/2017 Assessment & Plan (08/25/2025 [...] in early remission, on maintenance therapy, dependence ([facility]) 09/04/2015 Fibromyositis 04/26/2013 Assessment & [...] Encounters Date Type Department Care Team Description 09/18/2025 Refill [facility] [address] [place] [address] Elizabeth Dean NP 09/16/2025 10:30 AM EST Office Visit [facility] [address] [place] [address] Porfirio Saldivar MD Opioid dependence on maintenance agonist therapy, no symptoms (CMS/HCC) (HCC) (Primary Dx); Uncomplicated opioid dependence (CMS/HCC) (HCC) 09/16/2025 Orders Only [facility] External Provider, [facility] 09/16/2025 Refill [facility] [address] [place] [address] Elizabeth Dean NP Allergy, subsequent encounter; Neuropathic pain 09/16/2025 Travel 09/12/2025 Telephone [facility] [address] [place] [phone] Elizabeth Dean NP 09/12/2025 Telephone [facility] [address] [place] [phone] Elizabeth Dean NP Prior Authorization 09/11/2025 Telephone [facility] [address] [place] [phone] Elizabeth Dean NP Error (VOID this visit) (Entered in error/) 09/08/2025 Refill [facility] [place] [address] Julia Lu RN Uncomplicated opioid dependence (CMS/[facility]) ([facility]) 09/08/2025 Refill [facility] [address] [place] [phone] Elizabeth Dean NP Other muscle spasm 09/03/2025 Refill [facility] [address] [place] [phone] Elizabeth Dean NP Seasonal allergic rhinitis due to pollen; Allergy, subsequent encounter 09/01/2025 Telephone [facility] [address] [place] [phone] Elizabeth Dean NP 08/29/2025 Telephone [facility] [address] [place] [phone] Elizabeth Dean NP Durable Medical Equipment 08/28/2025 Patient Outreach [address] [address] [facility] 08/28/[address] [phone] Elizabeth Dean NP 08/25/2025 11:30 AM EDT Office Visit [facility] [address] [place] [phone] Elizabeth Dean NP Acute right ankle pain (Primary Dx); Acute pain of right knee; Pre-diabetes; Hypoglycemia after GI (gastrointestinal) surgery; Seizure (CMS/HCC) ([facility]); Moderate asthma without complication, unspecified whether persistent; Elevated blood pressure reading; Chronic nausea; COPD (chronic obstructive pulmonary disease) with chronic bronchitis (CMS/HCC) ([facility]); Other migraine without status migrainosus, intractable; Incontinence in female; Obstructive sleep apnea syndrome; Morbid obesity ([facility]) ([facility]) 08/25/2025 Travel 08/25/2025 Refill [facility] [address] [place] [address] Torres Morillo MD 08/22/2025 Telephone [facility] [address] [place] [phone] Elizabeth Dean NP chart prep 08/19/2025 9:30 AM EDT Clinical Support [facility] [address] [place] [address] Julia Lu RN Uncomplicated opioid dependence ([facility]) ([facility]) 08/19/2025 Travel 08/14/2025 Refill [facility] [address] [place] [phone] Elizabeth Dean NP Other muscle spasm; Nausea; Anxiety 08/12/2025 Refill [facility] [address] [place] [phone] Julia Lu RN Uncomplicated opioid dependence ([facility]) ([facility]) 08/11/2025 Patient Outreach [facility] [address] [place] [phone] Aron Hern[facility]dez [facility] 08/11/2025 Refill [facility] [address] [place] [phone] Elizabeth Dean NP Moderate persistent asthma without complication 08/06/2025 Refill [facility] [address] [place] [address] [phone] Elizabeth Dean NP Nausea; Anxiety 08/02/2025 Refill [facility] [address] [place] [phone] Elizabeth Dean NP Seborrheic dermatitis; Major depressive disorder in full remission, unspecified whether recurrent ([facility]) 07/31/2025 Telephone [facility] [address] [place] [phone] Elizabeth Dean NP Prior Authorization 07/31/2025 Telephone [facility] [address] [place] [address] [phone] Elizabeth Dean NP med b form 07/29/2025 Refill [facility] [address] [place] [phone] Elizabeth Dean NP Moderate persistent asthma without complication 07/25/2025 Patient Outreach [address] [phone] Bartolo Petit [facility] 07/22/2025 9:15 AM EDT Office Visit [address] [phone] Porfirio Saldivar MD Uncomplicated opioid dependence ([facility]) (Primary Dx) 07/22/2025 Refill [facility] [address] [place] [phone] Elizabeth Dean NP Allergy, subsequent encounter 07/22/2025 Travel 07/15/2025 Refill [facility] [address] [place] [phone] Julia Lu RN Uncomplicated opioid dependence ([facility]) 07/03/2025 Telephone [facility] [address] [place] [phone] Elizabeth Dean NP 07/03/2025 Telephone [facility] [address] [place] [phone] Elizabeth Dean NP Per Elizabeth 07/02/2025 Refill [facility] [address] [place] [phone] Elizabeth Dean NP Other muscle spasm 06/26/2025 Refill [facility] [address] [place] [phone] Elizabeth Dean NP 06/24/2025 Results Follow-Up [facility] [address] [place] [phone] Elizabeth Dean NP Pap Smear, HPV High Risk with Reflex to Subtypes from Last 3 Months Immunizations Immunization Administration [...] EDT Sexual Orientation Choose not to disclose 10/31/ 2022 10:16 AM EDT Last Filed Vital Signs Vital Sign Reading Time Taken Comments Blood Pressure 134/78 09/16/2025 2:51 PM EST Pulse 56 09/16/2025 2:51 PM EST Temperature 36.7 C (98.1 F) 08/25/2025 11:43 [...] Description 10/21/2025 1:00 PM EST Medication Management [address] [address] Juni Haji, PharmD [address] [place] [phone] 11/04/2025 1:45 PM EST Office Visit [address] [phone] Elizabeth Dean NP [address] [place] [address] 11/11/2025 9:30 AM EST Clinical Support [address] [phone] Julia Lu, BEN Health Maintenance Due Date Last Done Comments CT Colonography 1973 Colonoscopy 1973 Colorectal Cancer Screening 1973 Dental Oral Exam 1973 Dental Prophylaxis 1973 Dental X-Ray: Bitewings 1973 Dental X-Ray: Full Mouth 1973 FIT DNA/Cologuard 1973 FIT 1973 FOBT 1973 Sigmoidoscopy 1973 Family Planning (PISQ) 1988 Pneumococcal Vaccine: 50+ Years (2 of 2 - PCV) 01/06/2008 01/05/2007 RSV Patients and Patients Aged 60 years or older (1 - Risk 50-74 years 1-dose series) 2023 Zoster Vaccines (1 of 2) 2023 DTaP/Tdap/Td [...] 06/10/2025, 03/27/2020 Pap Smear 06/10/2030 06/10/2025, 03/27/2020 Hepatitis B Vaccines Completed 06/26/2007, 02/06/2007, 01/05/2007 HIV Screening Completed 03/04/2025, 09/20/2022 Hepatitis C Screening Completed 09/16/2025 , 03/04/2025, 09/20/2022 HIB Vaccines Aged Out No longer [...] Procedure Name Priority Date/Time Associated Diagnosis Comments XR WRIST 3+ VIEWS LEFT Routine 09/16/2025 3:20 PM EST XR LUMBAR SPINE COMPLETE 4+ VIEWS Routine 09/16/2025 1:48 PM EST XR ANKLE 3+ VIEWS RIGHT Routine 09/16/2025 1:41 PM EST XR HIP 2 OR 3 VIEWS LEFT Routine 09/16/2025 1:31 PM EST XR HIP 2 OR 3 VIEWS RIGHT Routine 09/16/2025 1:30 PM EST XR KNEE 3 VIEWS RIGHT Routine 09/16/2025 1:28 PM EST XR WRIST 3+ VIEWS RIGHT Routine 09/16/2025 1:26 PM EST XR HAND 3+ VIEWS BILATERAL Routine 09/16/2025 1:22 PM EST XR KNEE 3 VIEWS LEFT Routine 09/16/2025 1:19 PM EST CYCLIC CITRULLINATED PEPTIDE (CCP) AB (IGG) Routine 09/16/2025 11:33 AM EST T-SPOT(R).TB Routine 09/16/2025 11:33 AM EST HEPATITIS B, C PROFILE Routine 09/16/2025 11:33 AM EST SED RATE BY MODIFIED WESTERGREN Routine 09/16/2025 11:33 AM EST RHEUMATOID FACTOR Routine 09/16/2025 11: 33 AM EST C-REACTIVE PROTEIN Routine 09/16/2025 11 :33 AM EST COMPREHENSIVE METABOLIC PANEL Routine 09/16/2025 11:33 AM EST CBC WITH AUTO DIFFERENTIAL Routine 09/16/2025 11:33 AM EST HEMOGLOBIN A1C Routine 08/27/2025 10:10 AM EDT Pre-diabetes COMPREHENSIVE METABOLIC PANEL Routine 08/27/2025 10:10 AM EDT Pre-diabetes POCT PERLA-14 URINE DRUG SCREEN Routine 07/22/2025 9:47 AM EDT Uncomplicated opioid dependence (CMS/HCC) HPV DNA, LOW/HIGH RISK Routine 06/10/2025 1:25 PM EDT Cervical cancer screening PAP SMEAR Routine 06/10/2025 1:25 PM EDT Cervical cancer screening HIV 1/2 ANTIGEN/ANTIBODY, FOURTH GENERATION W/RFL Routine 03/04/2025 10:16 AM EDT Opioid type dependence, continuous (CMS/HCC) LIPID PANEL, STANDARD Routine 03/01/2023 11:10 AM EDT Cramps of lower extremity Hypoglycemia Primary hypertension MAMMOGRAM GENERIC Routine 09/16/2022 1:3 2 PM EST from Last 3 Months or Most Recently Relevant to Health Maintenance Results * XR Wrist 3+ Views Left (09/16/2025 3:20 PM EST) Anatomical Region Laterality Modality Upper Extremities, Wrist Left Radiogr aphic Imaging 09/16/2025 3:20 PM EST Narrative 09/16/2025 3:50 PM EST [address] [address] XRay Report Signed Patient: Christie Ortiz MR#: [id number] 31 : 1975 Acct:[id number] Age/Sex: 50 / F ADM Date: 09/16/25 Loc: .HHCX Attending Dr: Tamar Sanchez MD Ordering Physician: Tamar Sanchez MD Date of Service: 09/16/25 Procedure(s): XR wrist LT min 3V Accession Number(s): [id number] cc: Tamar Sanchez MD; Elizabeth Dean NP Reason for Exam: M05.9 - Rheumatoid arthritis with rheumatoid factor, unspecified EXAMINATION: XR WRIST, LEFT CLINICAL INFORMATION: M05.9 - Rheumatoid arthritis with rheumatoid factor, unspecified COMPARISON: August 19, 2022 TECHNIQUE: PA, lateral, and oblique views of the left wrist. FINDINGS: There is vague lucency at the ulnar base of the fifth metacarpal and adjacent hamate that appears unchanged when compared to the prior study. Minimal cystic lucency of the radial styloid tip is also stable. There is stable vague subtle lucency at the distal ulnar side of the scaphoid tuberosity. No new erosions are identified. XR/XR wrist LT min 3V IMPRESSION: Mild changes of inflammatory arthropathy in remission. Electronically signed by: Garcia Ortiz MD 09/16/2025 03:47 PM EST Dictated By: Garcia Ortiz MD Signed By: <Electronically signed by Garcia Ortiz MD in OV> 09/16/25 1547 DD/ 1520 TD/TT: 09/16/25 1526 Medical Health Researcher: Procedure Note Donotuseinterpreter, Image - 09/16/2025 [place] [address] XRay Report Signed Patient: Christie Ortiz [facility]#: [id number] 31 : 1975Acct:[id number] Age/Sex: 50 / FADM Date: 09/16/25 Loc: HO.HHCX Attending Dr: Tamar Sanchez MD Ordering Physician: Tamar Sanchez MD Date of Service: 09/16/25 Procedure(s): XR wrist LT min 3V Accession Number(s): [id number] cc: Tamar Sanchez MD; Elizabeth Dean NP Reason for Exam: M05.9 - Rheumatoid arthritis with rheumatoid factor,unspecified EXAMINATION: XR WRIST, LEFT CLINICAL INFORMATION: M05.9 - Rheumatoid arthritis with rheumatoid factor, unspecified COMPARISON: August 19, 2022 TECHNIQUE: PA, lateral, and oblique views of the left wrist. FINDINGS: There is vague lucency at the ulnar base of the fifth metacarpal and adjacent hamate that appears unchanged when compared to the prior study. Minimal cystic lucency of the radial styloid tip is also stable. There is stable vague subtle lucency at the distal ulnar side of the scaphoid tuberosity. No new erosions are identified. XR/XR wrist LT min 3V IMPRESSION: Mild changes of inflammatory arthropathy in remission. Electronically signed by: Garcia Ortiz MD 09/16/2025 03:47 PM EST RP Dictated By: Garcia Ortiz MD Signed By: <Electronically signed by Garcia Ortiz MD in OV> 09/16/25 1547 DD/ 1520 TD/TT: 09/16/25 1526 Medical Health Researcher: [facility] External Provider IMG XR PROCEDURES Final Result * XR Lumbar Spine Complete 4+ Views (09/16/2025 1:48 PM EST) Anatomical Region Laterality Modality Spine, L-spine Radiographic Jenna ging 09/16/2025 1:48 PM EST Narrative 09/16/2025 3:35 PM EST [address] [address] XRay Report Signed Patient: Christie Ortiz MR#: [id number] [birth year] : 1975 Acct:[id number] Age/Sex: 50 / F ADM Date: 09/16/25 Loc: HO.HHCX Attending Dr: Tamar Sanchez MD Ordering Physician: Tamar Sanchez MD Date of Service: 09/16/25 Procedure(s): XR lumbar spine 4V min Accession Number(s): [id number] cc: Tamar Sanchez MD; Elizabeth Dean NP Reason for Exam: M05.9 - Rheumatoid arthritis with rheumatoid factor, unspecified EXAMINATION: XR LUMBOSACRAL SPINE WITH OBLIQUES CLINICAL INFORMATION: M05.9 - Rheumatoid arthritis with rheumatoid factor, unspecified COMPARISON: January 09, 2021. TECHNIQUE: AP oblique and lateral views. FINDINGS: Metallic hardware placed through the trans pedicle screws secured with rods from L4 to S1. Intervertebral disc spacer placement. No acute cortical disruption or gross malalignment. No lytic or blastic lesions. Small marginal osteophyte formation and mild endplate sclerosis and the upper lumbar spine. XR/XR lumbar spine 4V min IMPRESSION: Status post posterior fusion L4 S1 with intact hardware and no acute fracture or listhesis. Electronically signed by: Andrew Parks MD 09/16/2025 03:32 PM EST Dictated By: Andrew Nichols MD Signed By: <Electronically signed by Andrew Ma MD in OV> 09/16/25 1532 DD/ 1348 TD/TT: 09/16/25 1526 Medical Health Researcher: Procedure Note Donotuseinterpreter, Image - 09/16/[address] [address] XRay Report Signed Patient: Christie Ortiz [facility]#: [id number] 31 : 1975Acct:[id number] Age/Sex: 50 / FADM Date: 09/16/25 Loc: HO.HHCX Attending Dr: Tamar Sanchez MD Ordering Physician: Tamar Sanchez MD Date of Service: 09/16/25 Procedure(s): XR lumbar spine 4V min Accession Number(s): [id number] cc: Tamar Sanchez MD; Elizabeth Dean NP Reason for Exam: M05.9 - Rheumatoid arthritis with rheumatoid factor,unspecified EXAMINATION: XR LUMBOSACRAL SPINE WITH OBLIQUES CLINICAL INFORMATION: M05.9 - Rheumatoid arthritis with rheumatoid factor, unspecified COMPARISON: January 09, 2021. TECHNIQUE: AP oblique and lateral views. FINDINGS: Metallic hardware placed through the trans pedicle screws secured with rods from L4 to S1. Intervertebral disc spacer placement. No acute cortical disruption or gross malalignment. No lytic or blastic lesions. Small marginal osteophyte formation and mild endplate sclerosis and the upper lumbar spine. XR/XR lumbar spine 4V min IMPRESSION: Status post posterior fusion L4 S1 with intact hardware and no acute fracture or listhesis. Electronically signed by: Andrew Parks MD 09/16/2025 03:32 PM EST RP Dictated By: Andrew Nichols MD Signed By: <Electronically signed by Andrew Ma MDin OV> 09/16/25 1532 DD/ 1348 TD/TT: 09/16/25 1526 Medical Health Researcher: [facility] External Provider IMG XR PROCEDURES Final Result * XR Ankle 3+ Views Right (09/16/2025 1:41 PM EST) Anatomical Region Laterality Modality Lower Extremities, Ankle Right Radiogr aphic Imaging 09/16/2025 1:41 PM EST Narrative 09/16/2025 3:35 PM EST [facility] [address] [place] [address] XRay Report Signed Patient: Christie Ortiz MR#: [id number] 31 : 1975 Acct:[id number] Age/Sex: 50 / F ADM Date: 09/16/25 Loc: HO.HHCX Attending Dr: Tamar Sanchez MD Ordering Physician: Sagrario Diane DPM Date of Service: 09/16/25 Procedure(s): XR ankle RT min 3V Accession Number(s): [id number] cc: Elizabeth Dean DIALER; Sagrario Diane DPM Reason for Exam: M25.571 - Pain in right ankle and joints of right foot EXAMINATION: XR ANKLE, right CLINICAL INFORMATION: M25.571 - Pain in right ankle and joints of right foot COMPARISON: July 05, 2021 TECHNIQUE: AP, lateral, and mortise views lower extremity joint, ankle. FINDINGS: Ankle mortise is congruent. There is no widening of the syndesmosis. Talar dome is intact. There is a calcaneal enthesophyte(s). Marginal osteophyte is present at the medial malleolar tip, similar to the prior. XR/XR ankle RT min 3V IMPRESSION: Mild degenerative change in the medial ankle joint, similar to the prior. Electronically signed by: Garcia Ortiz MD 09/16/2025 03:32 PM EST Dictated By: Garcia Ortiz MD Signed By: <Electronically signed by Garcia Ortiz MD in OV> 09/16/25 1532 DD/ 1341 TD/TT: 09/16/25 1526 Medical Health Researcher: Procedure Note Donotuseinterpreter, Image - 09/16/[address] [address] XRay Report Signed Patient: Christie Ortiz NMR#: [id number] 31 : 1975Acct:[id number] Age/Sex: 50 / FADM Date: 09/16/25 Loc: HO.HHCX Attending Dr: Tamar Sanchez MD Ordering Physician: Sagrario Diane DPM Date of Service: 09/16/25 Procedure(s): XR ankle RT min 3V Accession Number(s): [id number] cc: Elizabeth Dean DIALER; Sagrario Diane DPM Reason for Exam: M25.571 - Pain in right ankle and joints of right foot EXAMINATION: XR ANKLE, right CLINICAL INFORMATION: M25.571 - Pain in right ankle and joints of right foot COMPARISON: July 05, 2021 TECHNIQUE: AP, lateral, and mortise views lower extremity joint, ankle. FINDINGS: Ankle mortise is congruent. There is no widening of the syndesmosis. Talar dome is intact. There is a calcaneal enthesophyte(s). Marginal osteophyte is present at the medial malleolar tip, similar to the prior. XR/XR ankle RT min 3V IMPRESSION: Mild degenerative change in the medial ankle joint, similar to the prior. Electronically signed by: Garcia Ortiz MD 09/16/2025 03:32 PM EST RP Dictated By: Garcia Ortiz MD Signed By: <Electronically signed by Garcia Ortiz MD in OV> 09/16/25 1532 DD/ 1341 TD/TT: 09/16/25 1526 Medical Health Researcher: [facility] External Provider IMG XR PROCEDURES Final Result * XR Hip 2 or 3 Views Left (09/16/2025 1:31 PM EST) Anatomical Region Laterality Modality Lower Extremities, Hip Left Radiograp hic Imaging 09/16/2025 1:31 PM EST Narrative 09/16/2025 3:36 PM EST [facility] [address] [place] [address] XRay Report Signed Patient: Christie Ortiz MR#: [id number] 31 : 1975 Acct:[id number] Age/Sex: 50 / F ADM Date: 09/16/25 Loc: HO.HHCX Attending Dr: Tamar Sanchez MD Ordering Physician: Tamar Sanchez MD Date of Service: 09/16/25 Procedure(s): XR hip LT min 2V Accession Number(s): [id number] cc: Tamar Sanchez MD; Elizabeth Dean NP Reason for Exam: M05.9 - Rheumatoid arthritis with rheumatoid factor, unspecified EXAMINATION: XR HIP, LEFT CLINICAL INFORMATION: M05.9 - Rheumatoid arthritis with rheumatoid factor, unspecified COMPARISON: Correlated to CT abdomen pelvis dated May 22, 2019. TECHNIQUE: AP and oblique views of the left hip. FINDINGS: Sclerosis along the articular surface of the acetabulum. Subchondral cyst formation left acetabulum. Asymmetric joint space narrowing. No acute fracture or dislocation. No lytic or blastic lesions. XR/XR hip LT min 2V IMPRESSION: Mild osteoarthrosis/osteoarthritis, left hip. Electronically signed by: Andrew Parks MD 09/16/2025 03:33 PM EST RP Dictated By: Andrew Nichols MD Signed By: <Electronically signed by Andrew Ma MD in OV> 09/16/25 1533 DD/ 1331 TD/TT: 09/16/25 152 Medical Health Researcher: Procedure Note Donotradhainterpreter, Image - 09/16/2025 [facility] [address] [place] [address] XRay Report Signed Patient: Christie Ortiz NMR#: [id number] 31 : 1975Acct:[id number] Age/Sex: 50 / FADM Date: 09/16/25 Loc: HO.HHCX Attending Dr: Tamar Sanchez MD Ordering Physician: Tamar Sanchez MD Date of Service: 09/16/25 Procedure(s): XR hip LT min 2V Accession Number(s): [id number] cc: Tamar Sanchez MD; Elizabeth Dean NP Reason for Exam: M05.9 - Rheumatoid arthritis with rheumatoid factor,unspecified EXAMINATION: XR HIP, LEFT CLINICAL INFORMATION: M05.9 - Rheumatoid arthritis with rheumatoid factor, unspecified COMPARISON: Correlated to CT abdomen pelvis dated May 22, 2019. TECHNIQUE: AP and oblique views of the left hip. FINDINGS: Sclerosis along the articular surface of the acetabulum. Subchondral cyst formation left acetabulum. Asymmetric joint space narrowing. No acute fracture or dislocation. No lytic or blastic lesions. XR/XR hip LT min 2V IMPRESSION: Mild osteoarthrosis/osteoarthritis, left hip. Electronically signed by: Andrew Parks MD 09/16/2025 03:33 PM EST Dictated By: Andrew Nichols MD Signed By: <Electronically signed by Andrew Ma MDin OV> 09/16/25 1533 DD/ 30 TD/TT: 09/16/25 1526 Medical Health Researcher: [facility] External Provider IMG XR PROCEDURES Final Result * XR Hip 2 or 3 Views Right (09/16/2025 1:30 PM EST) Anatomical Region Laterality Modality Lower Extremities, Hip Right Radiograp hic Imaging 09/16/2025 1:30 PM EST Narrative 09/16/2025 3:37 PM EST [address] XRay Report Signed Patient: Christie Ortiz MR#: [id number] 31 : 1975 Acct:[id number] Age/Sex: 50 / F ADM Date: 09/16/25 Loc: HOSASHACX Attending Dr: Tamar Sanchez MD Ordering Physician: Tamar Sanchez MD Date of Service: 09/16/25 Procedure(s): XR hip RT min 2V Accession Number(s): [id number] cc: Tamar Sanchez MD; Elizabeth Dean NP Reason for Exam: M05.9 - Rheumatoid arthritis with rheumatoid factor, unspecified EXAMINATION: XR HIP, RIGHT CLINICAL INFORMATION: M05.9 - Rheumatoid arthritis with rheumatoid factor, unspecified COMPARISON: Correlated to CT abdomen pelvis dated May 22, 2019. TECHNIQUE: AP and oblique views of the right hip. FINDINGS: Sclerosis and the articular surface of the right acetabulum with subchondral cyst formation. Asymmetric joint space narrowing. No acute fracture or dislocation. No lytic or blastic lesions. XR/XR hip RT min 2V IMPRESSION: Mild osteoarthrosis/osteoarthritis, right hip. Electronically signed by: Andrew Parks MD 09/16/2025 03:34 PM EST Dictated By: Andrew Nichols MD Signed By: <Electronically signed by Andrew Ma MD in OV> 09/16/25 1534 DD/ 1330 TD/TT: 09/16/25 1526 Medical Health Researcher: Procedure Note Donotuseinterpreter, Image - 09/16/[address] [address] XRay Report Signed Patient: Christie Ortiz NMR#: [id number] 31 : 1975Acct:[id number] Age/Sex: 50 / FADM Date: 09/16/25 Loc: KISHANCX Attending Dr: Tamar Sanchez MD Ordering Physician: Tamar Sanchez MD Date of Service: 09/16/25 Procedure(s): XR hip RT min 2V Accession Number(s): [id number] cc: Tamar Sanchez MD; Elizabeth Dean NP Reason for Exam: M05.9 - Rheumatoid arthritis with rheumatoid factor,unspecified EXAMINATION: XR HIP, RIGHT CLINICAL INFORMATION: M05.9 - Rheumatoid arthritis with rheumatoid factor, unspecified COMPARISON: Correlated to CT abdomen pelvis dated May 22, 2019. TECHNIQUE: AP and oblique views of the right hip. FINDINGS: Sclerosis and the articular surface of the right acetabulum with subchondral cyst formation. Asymmetric joint space narrowing. No acute fracture or dislocation. No lytic or blastic lesions. XR/XR hip RT min 2V IMPRESSION: Mild osteoarthrosis/osteoarthritis, right hip. Electronically signed by: Andrew Parks MD 09/16/2025 03:34 PM EST Dictated By: Andrew Nichols MD Signed By: <Electronically signed by Andrew Ma MDin OV> 09/16/25 1534 DD/ 1330 TD/TT: 09/16/25 1526 Medical Health Researcher: [facility] External Provider IMG XR PROCEDURES Final Result * XR Knee 3 Views Right (09/16/2025 1:28 PM EST) Anatomical Region Laterality Modality Lower Extremities, Knee Right Radiogra phic Imaging 09/16/2025 1:28 PM EST Narrative 09/16/2025 3:51 PM EST [facility] [address] [place] [address] XRay Report Signed Patient: Christie Ortiz MR#: [id number] [birth year] : 1975 Acct:[id number] Age/Sex: 50 / F ADM Date: 09/16/25 Loc: HO.HHCX Attending Dr: Tamar Sanchez MD Ordering Physician: Tamar Sanchez MD Date of Service: 09/16/25 Procedure(s): XR knee RT 3V Accession Number(s): [id number] cc: Tamar Sanchez MD; Elizabeth Dean DIALER Reason for Exam: M05.9 - Rheumatoid arthritis with rheumatoid factor, unspecified EXAMINATION: XR KNEE, RIGHT CLINICAL INFORMATION: M05.9 - Rheumatoid arthritis with rheumatoid factor, unspecified COMPARISON: Previous x-ray January 2021 TECHNIQUE: 3 views of the right knee. FINDINGS: Bone alignment is normal. No fracture or dislocation. Mild osteopenia. Normal joint spaces. No erosions. Soft tissue calcification adjacent to the lateral femoral condyle likely related to old trauma new from previous exam. No joint effusion. XR/XR knee RT 3V IMPRESSION: Osteopenia. New small soft tissue calcification adjacent to the lateral femoral condyle probably related to old trauma. Electronically signed by: Gricelda Shah MD 09/16/2025 03:48 PM EST Dictated By: Gricelda Shah MD Signed By: <Electronically signed by Gricelda Shah MD in OV> 09/16/25 1548 DD/ 1328 TD/TT: 09/16/25 1526 Medical Health Researcher: RUEL Procedure Note Donotuseinterpreter, Image - 09/16/2025 [place] [address] XRay Report Signed Patient: Christie Ortiz [facility]#: [id number] 31 : 1975Acct:[id number] Age/Sex: 50 / FADM Date: 09/16/25 Loc: HO.HHCX Attending Dr: Tamar Sanchez MD Ordering Physician: Tamar Sanchez MD Date of Service: 09/16/25 Procedure(s): XR knee RT 3V Accession Number(s): [id number] cc: Tamar Sanchez MD; Elizabeth Dean DIALER Reason for Exam: M05.9 - Rheumatoid arthritis with rheumatoid factor,unspecified EXAMINATION: XR KNEE, RIGHT CLINICAL INFORMATION: M05.9 - Rheumatoid arthritis with rheumatoid factor, unspecified COMPARISON: Previous x-ray January 2021 TECHNIQUE: 3 views of the right knee. FINDINGS: Bone alignment is normal. No fracture or dislocation. Mild osteopenia. Normal joint spaces. No erosions. Soft tissue calcification adjacent to the lateral femoral condyle likely related to old trauma new from previous exam. No joint effusion. XR/XR knee RT 3V IMPRESSION: Osteopenia. New small soft tissue calcification adjacent to the lateral femoral condyle probably related to old trauma. Electronically signed by: Gricelda Shah MD 09/16/2025 03:48 PM EST RP Dictated By: Gricelda Shah MD Signed By: <Electronically signed by Gricelda Shah MD in OV> 09/16/25 1548 DD/ 1328 TD/TT: 09/16/25 1526 Medical Health Researcher: RUEL [facility] External Provider IMG XR PROCEDURES Final Result * XR Wrist 3+ Views Right (09/16/2025 1:26 PM EST) Anatomical Region Laterality Modality Upper Extremities, Wrist Right Radiogr aphic Imaging 09/16/2025 1:26 PM EST Narrative 09/16/2025 3:51 PM EST [address] [address] XRay Report Signed Patient: Christie Ortiz MR#: [id number] 31 : 1975 Acct:[id number] Age/Sex: 50 / F ADM Date: 09/16/25 Loc: HO.HHCX Attending Dr: Tamar Sanchez MD Ordering Physician: Tamar Sanchez MD Date of Service: 09/16/25 Procedure(s): XR wrist RT min 3V Accession Number(s): [id number] cc: Tamar Sanchez MD; Elizabeth Dean NP Reason for Exam: M05.9 - Rheumatoid arthritis with rheumatoid factor, unspecified EXAMINATION: XR WRIST, RIGHT CLINICAL INFORMATION: M05.9 - Rheumatoid arthritis with rheumatoid factor, unspecified COMPARISON: None available. TECHNIQUE: PA, lateral, and oblique views of the right wrist. FINDINGS: No fracture or dislocation. No significant joint space narrowing or marginal osteophytes. No osseous erosion. No abnormal soft tissue calcification. XR/XR wrist RT min 3V IMPRESSION: No significant osseous findings. Electronically signed by: Alban Monsalve MD 09/16/2025 03:49 PM EST RP Dictated By: Alban Monsalve MD Signed By: <Electronically signed by Alban Monsalve MD in OV> 09/16/25 1549 DD/ 1326 TD/TT: 09/16/25 1526 Medical Health Researcher: WALTER Procedure Note Donotuseinterpreter, Image - 09/16/2025 [facility] [address] [place] [address] XRay Report Signed Patient: Christie Ortiz NMR#: [id number] 31 : 1975Acct:[id number] Age/Sex: 50 / FADM Date: 09/16/25 Loc: HO.HHCX Attending Dr: Tamar Sanchez MD Ordering Physician: Tamar Sanchez MD Date of Service: 09/16/25 Procedure(s): XR wrist RT min 3V Accession Number(s): [id number] cc: Tamar Sanchez MD; Elizabeth Dean NP Reason for Exam: M05.9 - Rheumatoid arthritis with rheumatoid factor,unspecified EXAMINATION: XR WRIST, RIGHT CLINICAL INFORMATION: M05.9 - Rheumatoid arthritis with rheumatoid factor, unspecified COMPARISON: None available. TECHNIQUE: PA, lateral, and oblique views of the right wrist. FINDINGS: No fracture or dislocation. No significant joint space narrowing or marginal osteophytes. No osseous erosion. No abnormal soft tissue calcification. XR/XR wrist RT min 3V IMPRESSION: No significant osseous findings. Electronically signed by: Alban Monsalve MD 09/16/2025 03:49 PM EST RP Dictated By: Alban Monsalve MD Signed By: <Electronically signed by Alban Monsalve MD in OV> 09/16/25 1549 DD/ 1326 TD/TT: 09/16/25 1526 Medical Health Researcher: WALTER [facility] External Provider IMG XR PROCEDURES Final Result * XR Hand 3+Views Bilateral (09/16/2025 1:22 PM EST) Anatomical Region Laterality Modality Upper Extremities, Hand [facility] 09/16/2025 1:22 PM EST Narrative 09/16/2025 3:48 PM EST [facility] [address] [place] [address] XRay Report Signed Patient: Christie Ortiz MR#: [id number] [birth year] : 1975 Acct:[id number] Age/Sex: 50 / F ADM Date: 09/16/25 Loc: HO.HHCX Attending Dr: Tamar Sanchez MD Ordering Physician: Tamar Sanchez MD Date of Service: 09/16/25 Procedure(s): XR Hand Bilat min 3v Accession Number(s): [id number] cc: Tamar Sanchez MD; Elizabeth Dean NP Reason for Exam: M05.9 - Rheumatoid arthritis with rheumatoid factor, unspecified Exam: XR HAND 3 VIEWS BILATERAL, bilateral hand x-rays TECHNIQUE: AP, lateral, and oblique views upper extremity, bilateral hands INDICATION: M05.9 - Rheumatoid arthritis with rheumatoid factor, unspecified COMPARISON: August 19, 2022 FINDINGS: RIGHT HAND: Joint spaces are preserved. There is bilateral cystic lucency with sclerotic margin in the volar radial aspect of the fourth or carpal heads that was vaguely evident on the prior study and probably represents an erosion in remission. There is also lucency with sclerotic margins involving the ulnar base of the fourth proximal phalanx, possibly the third, also consistent with erosion in remission. LEFT HAND: Stable cystic changes with sclerotic margin is present in the radial radial and volar aspect of the fourth metacarpal head. A lucency at the ulnar base of the second proximal phalanx is unchanged. No active erosions are identified. XR/XR Hand Bilat min 3v IMPRESSION: Right hand: Changes consistent with rheumatoid arthritis in remission. Left hand: Changes consistent with rheumatoid arthritis in remission. Electronically signed by: Garcia Ortiz MD 09/16/2025 03:45 PM EST Dictated By: Garcia Ortiz MD Signed By: <Electronically signed by Garcia Ortiz MD in OV> 09/16/25 1545 DD/ 1322 TD/TT: 09/16/25 1526 Medical Health Researcher: Procedure Note Dashawnter, Image - 09/16/[address] [address] XRay Report Signed Patient: Christie Ortiz NMR#: [id number] 31 : 1975Acct:[id number] Age/Sex: 50 / FADM Date: 09/16/25 Loc: HO.HHCX Attending Dr: Tamar Sanchez MD Ordering Physician: Tamar Sanchez MD Date of Service: 09/16/25 Procedure(s): XR Hand Bilat min 3v Accession Number(s): [id number] cc: Tamar Sanchez MD; Elizabeth Dean NP Reason for Exam: M05.9 - Rheumatoid arthritis with rheumatoid factor,unspecified Exam: XR HAND 3 VIEWS BILATERAL, bilateral hand x-rays TECHNIQUE: AP, lateral, and oblique views upper extremity, bilateral hands INDICATION: M05.9 - Rheumatoid arthritis with rheumatoid factor, unspecified COMPARISON: August 19, 2022 FINDINGS: RIGHT HAND: Joint spaces are preserved. There is bilateral cystic lucency with sclerotic margin in the volar radial aspect of the fourth or carpal heads that was vaguely evident on the prior study and probably represents an erosion in remission. There is also lucency with sclerotic margins involving the ulnar base of the fourth proximal phalanx, possibly the third, also consistent with erosion in remission. LEFT HAND: Stable cystic changes with sclerotic margin is present in the radial radial and volar aspect of the fourth metacarpal head. A lucency at the ulnar base of the second proximal phalanx is unchanged. No active erosions are identified. XR/XR Hand Bilat min 3v IMPRESSION: Right hand: Changes consistent with rheumatoid arthritis in remission. Left hand: Changes consistent with rheumatoid arthritis in remission. Electronically signed by: Garcia Ortiz MD 09/16/2025 03:45 PM [facility] Dictated By: Garcia Ortiz MD Signed By: <Electronically signed by Garcia Ortiz MD in OV> 09/16/25 1545 DD/ 1322 TD/TT: 09/16/25 1526 Medical Health Researcher: [facility] External Provider IMG XR PROCEDURES Final Result * XR Knee 3 Views Left (09/16/2025 1:19 PM EST) Anatomical Region Laterality Modality Lower Extremities, Knee Left Radiogra phic Imaging 09/16/2025 1:19 PM EST Narrative 09/16/2025 3:52 PM EST [facility] [address] [place] [address] XRay Report Signed Patient: Christie Ortiz MR#: [id number] [birth year] : 1975 Acct:[id number] Age/Sex: 50 / F ADM Date: 09/16/25 [facility] Dr: Tamar Sanchez MD Ordering Physician: Tamar Sanchez MD Date of Service: 09/16/25 Procedure(s): XR knee LT 3V Accession Number(s): [id number] cc: Tamar Sanchez MD; Elizabeth Dean NP Reason for Exam: M05.9 - Rheumatoid arthritis with rheumatoid factor, unspecified EXAMINATION: XR KNEE, LEFT CLINICAL INFORMATION: M05.9 - Rheumatoid arthritis with rheumatoid factor, unspecified COMPARISON: Previous x-ray May 2020 TECHNIQUE: Four views of the left knee. FINDINGS: Bone alignment is normal. No fracture or dislocation. Mild medial femoral tibial joint space narrowing. Joint spaces otherwise normal. No erosions. No joint effusion. XR/XR knee LT 3V IMPRESSION: Mild medial femoral tibial joint space narrowing. Electronically signed by: Gricelda Shah MD 09/16/2025 03:50 PM EST Dictated By: Gricelda Shah MD Signed By: <Electronically signed by Gricelda Shah MD in OV> 09/16/25 1550 DD/ 1319 TD/TT: 09/16/25 1526 Medical Health Researcher: RUEL Procedure Note Donotuseinterpreter, Image - 09/16/2025 [facility] [address] [place] [address] XRay Report Signed Patient: Christie Ortiz [facility]#: [id number] [birth year] : 1975Acct:[id number] Age/Sex: 50 / FADM Date: 09/16/25 Loc: [facility]X Attending Dr: Tamar Sanchez MD Ordering Physician: Tamar Sanchez MD Date of Service: 09/16/25 Procedure(s): XR knee LT 3V Accession Number(s): [id number] cc: Tamar Sanchez MD; Elizabeth Dean NP Reason for Exam: M05.9 - Rheumatoid arthritis with rheumatoid factor,unspecified EXAMINATION: XR KNEE, LEFT CLINICAL INFORMATION: M05.9 - Rheumatoid arthritis with rheumatoid factor, unspecified COMPARISON: Previous x-ray May 2020 TECHNIQUE: Four views of the left knee. FINDINGS: Bone alignment is normal. No fracture or dislocation. Mild medial femoral tibial joint space narrowing. Joint spaces otherwise normal. No erosions. No joint effusion. XR/XR knee LT 3V IMPRESSION: Mild medial femoral tibial joint space narrowing. Electronically signed by: Gricelda Shah MD 09/16/2025 03:50 PM EST Dictated By: Gricelda Shah MD Signed By: <Electronically signed by Gricelda Shah MD in OV> 09/16/25 1550 DD/ 1319 TD/TT: 09/16/25 1526 Medical Health Researcher: RUEL [facility] External Provider IMG XR PROCEDURES Final Result * Hepatitis B, C Profile (09/16/2025 11:33 AM EST) ~Hepatitis B Surface Antibody REACTIVE Nonreactive [facility] Comment:REACTIVE: > 11.99 mI U/mL Hepatitis B Core Antibody Nonreactive Nonreactive [facility] Hepatitis C Antibody Nonreactive Nonreactive [facility] Comment:Antibodies to HCV no t detected; does not exclude early acuteHCV infection. Hepatitis B Surface Ag Negative Negative [facility] 09/16/2025 11:3 3 AM EST 09/16/2025 1:34 PM EST us Generic External Data Provider LAB BLOOD ORDERAB LES Final Result [facility] [address] [place] [address] [phone] * T-SPOT??.TB (09/16/2025 11:33 AM EST) T Spot TB Negative Negative [facility] Comment:A negative test resu lt does not exclude the possibilityof exposure to or infection with Mycobacteriumtuberculosis (M. tuberculosis). Patients with recentexposure to TB infected individuals exhibiting anegative T-SPOT.TB result should be considered forretesting within 6 weeks or if other relevant clinicalsymptoms indicate. Results from T-SPOT.TB testing mustbe used in conjunction with each individual'sepidemiological history, current medical status,and results of other diagnostic evaluations.The T-SPOT.TB test is qualitative and results arereported as positive, borderline, or negative, giventhat the test controls perform as expected. In linewith the Centers for Disease Control and Prevention's2010 recommendation to report quantitative measurementsalongside the qualitative result, the laboratoryprovides spot counts for informational purposes only.The T-SPOT.TB test should not be interpreted as aquantitative test. TS PANEL A 2 [facility] TS PANEL B 4 [facility] Negative Control Passed [facility] Positive Control Passed [facility] Comment:For additional infor mation, please refer tohttp://education.[employer]ico.[employer]/faq/TCM161(This link is being provided for informational/educational purposes only.)THIS TEST WAS PERFORMED AT:[facility] [id number] [place] [address]TCVJXVGKENDAL RON MD,PHD 09/16/2025 11:3 3 AM EST 09/16/2025 1:34 PM EST us Generic External Data Provider LAB BLOOD ORDERAB LES Final Result [facility] [address] [place], [place] [phone] * (ABNORMAL) CBC auto differential (09/16/2025 11:33 AM EST) White Blood Count 4.3(L) 4.8 - 10.8 X10*3/uL [facility] Red Blood Count 4.32 4.20 - 5.50 X10*6/uL [facility] Hemoglobin 12.3 12.0 - 16.0 g/dl [facility] Hematocrit 38.8 37.0 - 47.0 % [facility] Mean Corpuscular Volume 89.8 80.0 - 98.0 fL [facility] Mean Corpuscular Hemoglobin 28.5 27.0 - 33.0 pg [facility] Mean Corpuscular HGB Conc 31.7 31.0 - 35.0 g/dl [facility] Red Cell Distribution Width 12.2 11.0 - 16.0 % [facility] Platelet Count 244 160 - 400 X10*3/uL [facility] Mean Platelet Volume 10.3 9.4 - 12.3 fL [facility] Neutrophils Percent Auto 65.2 45 - 73 % [facility] Imm Gran Pct Auto 0.2 0.0 - 0.4 % [facility] Lymphocytes Percent Auto 24.7 20 - 40 % [facility] Monocytes Percent Auto 7.4 2 - 11 % [facility] Eosinophils Percent Auto 2.3 0 - 4 % [facility] Basophils Percent Auto 0.2 0 - 2 % [facility] NRBC Pct Auto 0.0 0.0 - 0.2 /100WBC [facility] Neutrophils Absolute Auto 2.8 2.0 - 8.3 x10*3/uL [facility] Imm Gran Abs Auto 0.01 0.00 - 0.03 X10*3/uL [facility] Lymphocytes Absolute Auto 1.1(L) 1.2 - 4.9 X10*3/uL [facility] Monocytes Absolute Auto 0.3 0.1 - 1.2 X10*3/uL [facility] Eosinophils Absolute Auto 0.1 0.0 - 0.4 X10*3/uL [facility] Basophils Absolute Auto 0.0 0.0 - 0.2 X10*3/uL [facility] NRBC Abs Auto 0.000 0.0 - 0.012 X10*3/uL [facility] 09/16/2025 11:3 3 AM EST 09/16/2025 1:34 PM EST Generic External Data Provider LAB BLOOD ORDERAB LES Final Result Performing Organization Address [facility] Co de Phone Number [facility] [address] [place] [phone] * Cyclic Citrullinated Peptide (CCP) Antibody (IgG) (09/16/2025 11:33 AM EST) Pathologist [facility] Cyclic Citrullinated Peptide <16 UNITS [facility] Comment:Reference RangeNegat katelyn: <20Weak Positive: 20-39Moderate Positive: 40-59Strong Positive: >59THIS TEST WAS PERFORMED AT:[facility] [address] [phone] SENIOR MD 09/16/2025 11:3 3 AM EST 09/16/2025 1:34 PM EST Generic External Data Provider LAB BLOOD ORDERAB LES Final Result Performing Organization Address [facility] Co de Phone Number [facility] [address] [place] [address] [phone] * Sed Rate by Chong Nina (09/16/2025 11:33 AM EST) Erythrocyte Sedimentation Rate 20 0 - 20 MM/HR [facility] Comment:Patients with polycy themia and many hemoglobin abnormalitiesmay have depressed sed rates whereas patients with anemiamay have elevated sed rates. 09/16/2025 11:3 3 AM EST 09/16/2025 1:34 PM EST Generic External Data Provider LAB BLOOD ORDERAB LES Final Result Performing Organization Address [facility] Co de Phone Number [facility] [address] [place] [phone] * (ABNORMAL) Rheumatoid Factor (09/16/2025 11:33 AM EST) Pathologist [facility] Rheumatoid Factor 64.8(H) <15.0 IU/mL [facility] 09/16/2025 11:3 3 AM EST 09/16/2025 1:34 PM EST Generic External Data Provider LAB BLOOD ORDERAB LES Final Result Performing Organization Address [facility] Phone Number [facility] [address] [place] [phone] * C-reactive Protein (09/16/2025 11:33 AM EST) [facility] C Reactive Protein 0.49 < or = 0.50 mg/dL [facility] 09/16/2025 11:3 3 AM EST 09/16/2025 1:34 PM EST Generic External Data Provider LAB BLOOD ORDERAB LES Final Result Performing Organization Address [facility] de Phone Number [facility] [address] [place] [phone] * (ABNORMAL) Comprehensive Metabolic Panel (09/16/2025 11:33 AM EST) Only the most recent of2 resultswithin the time period is included. Pathologist [facility] Sodium 137 135 - 145 mmol/L [facility] Potassium 4.3 3.3 - 5.1 mmol/L [facility] Chloride 103 96 - 108 mmol/L [facility] Carbon Dioxide 27 22 - 29 mmol/L [facility] Anion Gap 11(L) 12 - 20 [facility] Urea Nitrogen (BUN) 19(H) 9 - 16 mg/dL [facility] Creatinine, Serum 0.69 0.5 - 1.4 mg/dL [facility] Estimated Glomerular Filt Rate >60 [facility] Comment:Chronic Kidney Disea se: Estimated GFR < 60 mL/min/1.18d5Drtwua Kidney Disease: Estimated GFR < 15 mL/min/1.73m2 Glucose 88 60 - 115 mg/dL [facility] Calcium 9.0 8.4 - 10.2 mg/dL [facility] Bilirubin, Total 0.2 0.0 - 1.0 mg/dL [facility] Aspartate Amino Transferase 45(H) 5 - 31 U/L [facility] Alanine Aminotransferase 15 0 - 31 U/L [facility] Total Protein 7.6 6.5 - 8.0 g/dL [facility] Albumin Level 4.4 3.5 - 5.0 g/dL [facility] Alkaline Phosphatase 131(H) 39 - 117 U/L [facility] 09/16/2025 11:3 3 AM EST 09/16/2025 1:34 PM EST us Generic External Data Provider LAB BLOOD ORDERAB LES Final Result [facility] [address] [place] [phone] * Hemoglobin A1c (08/27/2025 10:10 AM EDT) Hemoglobin A1c 5.5 <6.0 % [facility] Comment:Hemoglobin A1C Refer ence Range Adults: 4.8 - 6.0 % Non diabetic: < 6.0 % Goal: < 7.0 %Additional Action Suggested: > 8.0 %Note: Hemoglobin A1c results are invalid for patients with abnormal amounts of HbF. Blood transfusions may impact the HbA1c concentration in the patient sample. Estimated Average Glucose 111 mg/dL [facility] Comment:eAG = Estimated ave rage glucose which is %A1C expressed asaverage glucose, using the formula of the E0N-EhpqsinXfuwioy Glucose study (ADAG), Diabetes Care, Vol.31,#8,2007 Blood Venous blood specimen / Unknown 08/27/2025 10:10 AM EDT 08/27/2025 11:26 AM EDT us Elizabeth Dean DIALER LAB BLOOD ORDERABLES Final Resul t [facility] [address] [place] [phone] * (ABNORMAL) POCT PERLA-14 Urine Drug Screen (07/22/2025 9:47 AM EDT) THC Negative Negative Cocaine Screen, Urine Negative [...] PM EDT) HPV High Risk Negative Negative [facility] HPV Genotype 16 Negative Negative [facility] HPV Genotype 18 Negative Negative [facility] Comment:HPV testing performe d at [facility] (CLIA#[id number]), [address] [place] [phone].Testing for HPV was performed using the Osorio [...] NP LAB BLOOD ORDERABLES Final Resul t [facility] [address] [place] [phone] * Pap Smear (06/10/2025 1:25 PM EDT) Swab Cervix uteri structure / Unknown 06/10/2025 1:25 PM EDT 06/11/2025 8:30 AM EDT Flavia [facility] - 06/17/2025 8:19 AM EDT ----- ------- Name: OrtizChristie N Age/Sex: 49/F : 1975 Unit#: [id number] Attend Dr: Elizabeth Dean NP Re06/10/25 Status: DEP [facility] Disch: ----- ------- SPEC : [id number] RECD: 06/11/25 STATUS: SUMMER GARCIA NUM: [id number] RADHA: 06/10/25 [facility] DR: Elizabeth Dean DIALER ENTERED: 06/11/25 SP TYPE: Pap Smr OT DR: ORDERED: Pap Smear Interpretation Satisfactory for [...] and HPV testing will be performed at [facility] (CLIA #[id number]), [address] [place] [address]. Testing for HPV was performed using the [employer] system. The presence of HPV in the [...] detected. All professional services are performed by [facility] ([address] [place] [address]; ; CLIA #[id number]). The PAP Test is a screening procedure with the inherent possibility of both false negative and false positive results. Results should be interpreted in the context of historic and current clinical findings. Reliability of the PAP Test is enhanced by performing the test on a regular repetitive basis. ----- ------- Signed (signature on file) CORDELIA Frederick ([facility]) 06/17/25 0819 ----- ------- END OF REPORT us Elizabeth Dean NP LAB CYTOLOGY ORDERABLES Final Re sult [facility] [address] [place] [phone] * HIV-1/2 Antigen and Antibodies, Fourth Generation, with Reflexes (03/04/2025 10:16 AM EDT) [facility] HIV AB/AG Nonreactive Nonreactive [facility] Comment:HIV-1 p24 Ag and/or HIV-1/HIV-2 Ab not detected.A test result that is nonreactive does not exclude thepossibility of exposure to or infection with HIV-1 and/orHIV-2. Nonreactive results in this assay for individualswith prior exposure to HIV-1 and/or HIV-2 may be due toantigen and antibody levels that are below the limit ofdetection of this assay.The Glomera HIV Ag/Ab Combo assay result andsupplemental assay results should be interpreted inconjunction with the patient's clinical presentation,history and other laboratory results. If the results areinconsistent with clinical evidence, additional testing issuggested to confirm the result. Blood Venous blood specimen / Unknown 03/04/2025 10:16 AM EDT 03/04/2025 11:22 AM EDT us Torres Morillo MD LAB BLOOD ORDERABLES Final Resul t Performing Organization Address City/[facility]/ZIP Co de Phone Number [facility] [address] [place] [phone] * Lipid Panel, Standard (03/01/2023 11:10 AM EDT) Cholesterol, Total 159 <200 mg/dL [employer] HDL Cholesterol 79 > OR = 50 mg/dL [employer] Triglycerides 44 <150 mg/dL [employer] LDL Cholesterol 67 mg/dL (calc) [employer] Comment: Reference range: <100 Desirable range <100 mg/dL for primary prevention; <70 mg/dL for patients with CHD or diabetic patients with > or = 2 CHD risk factors. LDL-C is now calculated using the Jordan calculation, which is a validated novel method providing better accuracy than the Friedewald equation in the estimation of LDL-C. Rayray SS et al. GUILLAUME. 2013;310(19): 2540-2953 (http://education.Wedding.com.my/faq/JGA397) Chol/HDLC Ratio 2.0 <5.0 (calc) [employer] Non-HDL Cholesterol 80 <130 mg/dL (calc) [employer] Comment: For patients with diabetes plus 1 major ASCVD risk factor, treating to a non-HDL-C goal of <100 mg/dL (LDL-C of <70 mg/dL) is considered a therapeutic option. Blood Venous blood specimen / Unknown 03/01/2023 11:10 AM EDT 03/01/2023 11:11 AM EDT Narrative [facility] - 03/04/2023 6:21 AM EDT FASTING:NO FASTING: NO Kyra Doyle MD LAB BLOOD ORDERABLES Final Result Performing Organization Address City/[facility]/ZIP Co de Phone Number [facility] [address], [place] [address] [employer] [address] [place] [phone] * Mammography Report 1 (09/16/2022 1:32 PM [...] Most Recently Relevant to Health Maintenance Insurance [facility] MEDICARE Care Teams Panel Monitor Relationship Specialty Start Date End Date Elizabeth Dean NP [address] [place] [phone] PCP - General Family Medicine 02/25/25
--- OUTSIDE RECORDS SUMMARY | 2025-09-24 07:22 | XMS_ITS | Clinical Summary ---
Author Organization [facility] Address [address] [facility] [address] [place] [phone] Phone Care Team Providers Care Appeals Manager Name Role Phone Mayra Nohemi Primary Care [...] file Insurance MEDICARE PART A & B [facility] MEDICARE PART A & B [facility] MEDICARE PART A & B [place] [facility] & [place] & B Member Subscriber Plan / Payer ( fective 2017-Present) Name:Christie Ortiz Member ID:[id number] Relation to Subscriber:Self Name:Christie Ortiz Subscriber ID:[id number] Payer ID:[id number] Group ID:Not on file Type:Medicare Address: [employer] [address] [place] [phone] [place] B [facility] Care Teams Appeals Manager Relationship Specialty Start Date End Date Nohemi Nunez DO [address] [place] [phone] PCP - General 11/09/17 Additional Source Comments The information contained in this document represents components of the legal health record. It is not the complete legal health record.[facility]
== END 2025-09-23 14:34 | disposition home or self-care (01) ==
LOC: HO.ENCR 13:44
PROVIDERS: Visit Provider Student in an Organized Health Care Education/Training Program
DX: E16.2 Hypoglycemia, unspecified (principal)
CPT/HCPCS: 99204

== ENCOUNTER → 2025-09-23 13:43 | Outpatient (BNVA) | payer MEDICARE, MEDICAID, SELFPAY | PROVIDERS: Visit Provider Student in an Organized Health Care Education/Training Program | DX: E16.2 Hypoglycemia, unspecified (principal); Z90.3 Acquired absence of stomach [part of]; E66.9 Obesity, unspecified; Z68.37 Body mass index [BMI] 37.0-37.9, adult | CPT/HCPCS: 82947; 99202 ==

== ENCOUNTER 2025-10-01 11:19 | Outpatient (REF) | payer MEDICARE, MEDICAID, SELFPAY ==
--- NOTE | ~2025-10-01 | XR_ITS ---
EXAMINATION: XR CERVICAL SPINE CLINICAL INFORMATION: M05.9 - Rheumatoid arthritis with rheumatoid factor, unspecified COMPARISON: None available. TECHNIQUE: 6 views of the cervical spine, inclusive of flexion and extension views, were obtained. EXAM: CR Xr Cervical Spine W Flex/ex TECHNIQUE: AP, AP odontoid, bilateral oblique, and lateral: Flexion, neutral, and extension view x-rays of the cervical spine. INDICATION: Neck pain , M05.9 - Rheumatoid arthritis with rheumatoid factor, unspecified PRIOR: None FINDINGS: There is mild reversal of the normal cervical lordosis. No fractures are identified. There is no prevertebral soft tissue swelling. There is no widening of the atlantodental space during flexion and extension. C3-4: There is mild disc space narrowing. There is physiologic retrolisthesis during extension. C4-5: There is mild to moderate disc space narrowing with endplate sclerosis and osteophytes. There is moderate bony foraminal narrowing. C5-6: There is mild disc space narrowing. There is 2.5 mm retrolisthesis during extension. Level is aligned during flexion. There is possible left bony foraminal narrowing. Disc spaces are preserved otherwise. XR/XR cervical spine w flex/ext IMPRESSION: There is mild reversal of cervical lordosis. This can be related to degenerative changes, positioning, muscle spasm, or posterior soft tissue injury. Degenerative disc disease is most advanced at C4-5. C5-6 demonstrate borderline instability. There is 2.5 mm retrolisthesis during extension. Level is aligned during flexion. Electronically signed by: Garcia Ortiz MD 10/01/2025 12:32 PM [facility]
--- NOTE | ~2025-10-01 | XR_ITS ---
EXAMINATION: XR SACROILIAC JOINTS CLINICAL INFORMATION: M05.9 - Rheumatoid arthritis with rheumatoid factor, unspecified COMPARISON: None available. TECHNIQUE: 3 views of the sacroiliac joints FINDINGS: The SI joints are symmetrical without erosions, narrowing, sclerosis, or effusion. Postsurgical changes related to posterior lumbar interbody fusion with interbody graft is evident at L4-S1. XR/XR sacroiliac joint min 3V IMPRESSION: Unremarkable sacroiliac joints. Electronically signed by: Garcia Ortiz MD 10/01/2025 12:26 PM [facility]
--- OUTSIDE RECORDS SUMMARY | 2025-10-01 14:08 | XMS_ITS | Encounter Summary ---
Author Organization [employer] Address [address] [place] [address] 7[address] [place] [address] Care Team Providers Care Chapter Relations Administrator Name Role Phone Kyra Driscoll MD Primary Care Provide r Elizabeth Dean NP Primary Care Provider [phone] Encounter Details Date Type Department Care Team (Late st Contact Info) Description 09/26/2022 Abstract [facility] [address] [place] [address] [phone] Kyra Driscoll MD [address] [place] [address] [phone] Social History Tobacco Use Types Packs/Day Years [...] 10/21/2025 1:00 PM EST Medication Management [address] [address] Juni Haji, PharmD [address] [place] [address] 11/04/2025 1:45 PM EST Office Visit [facility] [address] [place] [phone] Elizabeth Dean NP [address] [place] [address] 11/11/2025 9:30 AM EST Clinical Support [facility] [address] [place] [address] Julia Lu, BEN documented as of this encounter Visit Diagnoses Not on filedocumented in this encounter Care Teams Chapter Relations Administrator Relationship Specialty Start Date End Date Kyra Driscoll MD [address] [place] [address] PCP - General Family Medicine 06/03/19 03/03/24 Elizabeth Dean NP [address] [place] [address] PCP - General Family Medicine 02/25/25 documented as of this encounter
--- OUTSIDE RECORDS SUMMARY | 2025-10-01 14:08 | XMS_ITS | Encounter Summary ---
Author Organization [email or web address] Address [address] [facility] 7t [place] [address] Care Team Providers Care Erector Operator Name Role Phone Kyra Driscoll MD Primary Care Provide r Elizabeth Dean NP Primary Care Provider [phone] Reason for Visit * Reason Comments Med Refill Encounter Details Date Type Department Care Team (Late st Contact Info) Description 05/23/2023 Refill [facility] [address] [place], [place] [phone] Kyra Driscoll MD [address] [place], [place] [phone] Social History Tobacco Use Types Packs/Day Years [...] 1:00 PM EST Medication Management [facility] MEDICINE [address] [place], [place] [phone] Juni Haji, PharmD [address] [place], [place] [phone] 11/04/2025 1:45 PM EST Office Visit [address] [address] Elizabeth Dean NP [address] [place] [address] 11/11/2025 9:30 AM EST Clinical Support [address] [address] Julia Lu RN documented as of this encounter Visit Diagnoses Not on filedocumented in this encounter Care Teams Erector Operator Relationship Specialty Start Date End Date Kyra Driscoll MD [address] [place] [phone] PCP - General Family Medicine 06/03/19 03/03/24 Elizabeth Dean NP [address] [place] [address] PCP - General Family Medicine 02/25/25 documented as of this encounter
--- OUTSIDE RECORDS SUMMARY | 2025-10-01 14:08 | XMS_ITS | Encounter Summary ---
Author Organization [employer] Address [address] [facility] 7[address] [place] [address] Care Team Providers Care Supervisor Tile [employer]ottle Name Role Phone Kyra Driscoll MD Primary Care Provide r Elizabeth Dean NP Primary Care Provider [phone] Reason for Visit * Reason Comments Med Refill Encounter Details Date Type Department Care Team (Late Contact Info) Description 03/15/2023 Refill [facility]EDS [address] [place], [place] [phone] Nurys Mcdonnell MD [address] [place] [address] Other migraine without status migrainosus, not intractable [...] Upcoming Encounters Date Type Department Care Team ([facility] Contact Info) Description 10/21/2025 1:00 PM EST Medication Management [address] [address] Juni Haji, HennyD [address] [place] [phone] 11/04/2025 1:45 PM EST Office Visit [address] [address] Elizabeth Dean NP [address] [place] [address] 11/11/2025 9:30 AM EST Clinical Support [address] [address] Julia Lu RN documented as of this encounter Visit Diagnoses Diagnosis Other migraine without status migrainosus, not intractable documented in this encounter Care Teams Supervisor [employer]ott[employer] Relationship Specialty Start Date End Date Kyra Driscoll MD [address] [place] [phone] PCP - General Family Medicine 06/03/19 03/03/24 Elizabeth Dean NP [address] [place] [address] PCP - General Family Medicine 02/25/25 documented as of this encounter
--- OUTSIDE RECORDS SUMMARY | 2025-10-01 14:08 | XMS_ITS | Encounter Summary ---
Author Organization [employer] Address 75 [facility] 7t [place] [address] Care Team Providers Care Locomotive Electrician Name Role Phone Kyra Driscoll MD Primary Care Provide r Elizabeth Dean NP Primary Care Provider [phone] Reason for Visit * Reason Comments Med Refill Encounter Details Date Type Department Care Team (Late st Contact Info) Description 05/23/2023 Refill [facility] MEDICINE 230 [place], [place] [phone] Nurys Mcdonnell MD 230 [place], [place] [phone] COPD (chronic obstructive pulmonary disease) with chronic bronchitis ([facility]/HCC) Social History Tobacco Use Types Packs/Day [...] Description 10/21/2025 1:00 PM EST Medication Management [facility] 230 [place], [place] [phone] Juni Haji, HennyD 230 [place], [place] [phone] 11/04/2025 1:45 PM EST Office Visit [address] [address] Elizabeth Dean NP [address] [place] [address] 11/11/2025 9:30 AM EST Clinical Support [address] [address] Julia Lu RN documented as of this encounter Visit Diagnoses Diagnosis COPD (chronic obstructive pulmonary disease) with chronic bronchitis (CMS/HCC) (HCC) documented in this encounter Care Teams Locomotive Electrician Relationship Specialty Start Date End Date Kyra Driscoll MD [address] [place] [address] PCP - General Family Medicine 06/03/19 03/03/24 Elizabeth Dean NP [address] [place] [address] PCP - General Family Medicine 02/25/25 documented as of this encounter
--- OUTSIDE RECORDS SUMMARY | 2025-10-01 14:08 | XMS_ITS | Encounter Summary ---
Author Organization [facility] Address [address] [facility] [address] [place] [address] Phone Care Team Providers Care Light Technician Name Role Phone Nohemi Nunez Primary Care Provider [phone] Encounter Details Date Type Department Care Team (Late st Contact Info) Description 01/16/2019 Ancillary Orders [facility] [address] [place] [address] Zora Hughes PA [address] [place] [address] [email or web address] Palpitations Social History Tobacco Use Types Packs/Day [...] Palpitations documented in this encounter Care Teams Light Technician Relationship Specialty Start Date End Date Nohemi Nunez DO 230 [place] [address] PCP - General 11/09/17 documented as of this encounter Additional Source Comments The information contained in this document represents components of the legal health record. It is not the complete legal health record.[facility]
--- OUTSIDE RECORDS SUMMARY | 2025-10-01 14:08 | XMS_ITS | Encounter Summary ---
Author Organization [employer] Address 75 [facility] 7t [place] [address] Care Team Providers Care Fruit Grower Name Role Phone Kyra Driscoll MD Primary Care Provide r Elizabeth Dean NP Primary Care Provider [phone] Reason for Visit * Reason Comments Med Refill Encounter Details Date Type Department Care Team ([facility] st Contact Info) Description 02/25/2023 Refill [facility] MED[facility] 230 [place], [place] [phone] Porfirio Saldivar MD 230 [place], [place] [phone] Uncomplicated opioid dependence (CMS/HCC) Social History Tobacco [...] Description 10/21/2025 1:00 PM EST Medication Management [address] [address] Juni Haji, HennyD [address] [place] [address] 11/04/2025 1:45 PM EST Office Visit [address] [address] Elizabeth Dean NP [address] [place] [address] 11/11/2025 9:30 AM EST Clinical Support [address] [address] Julia Lu RN documented as of this encounter Visit Diagnoses Diagnosis Uncomplicated opioid dependence (CMS/HCC) (HCC) documented in this encounter Care Teams Fruit Grower Relationship Specialty Start Date End Date Kyra Driscoll MD [address] [place] [address] PCP - General Family Medicine 06/03/19 03/03/24 Elizabeth Dean NP [address] [place] [address] PCP - General Family Medicine 02/25/25 documented as of this encounter
--- OUTSIDE RECORDS SUMMARY | 2025-10-01 14:08 | XMS_ITS | Encounter Summary ---
Author Organization [employer] Address 75 [facility] 7t [place] [address] Care Team Providers Care Funeral Director/Embalmer Name Role Phone Kyra Driscoll MD Primary Care Provide r Elizabeth Dean NP Primary Care Provider [phone] Reason for Visit * Reason Comments Med Refill Encounter Details Date Type Department Care Team (Late st Contact Info) Description 06/07/2023 Refill [facility] [address] [place], [place] [phone] Kyra Driscoll MD 230 [place], [place] [phone] Chronic nausea; Allergy, subsequent encounter Social History [...] Description 10/21/2025 1:00 PM EST Medication Management [facility] 230 [place], [place] [phone] Juni Haji, PharmD 230 [place], [place] [phone] 11/04/2025 1:45 PM EST Office Visit [address] [address] Elizabeth Dean NP [address] [place] [address] 11/11/2025 9:30 AM EST Clinical Support [address] [address] Julia Lu RN documented as of this encounter Visit Diagnoses Diagnosis Chronic nausea Nausea alone Allergy, subsequent encounter documented in this encounter Care Teams Funeral Director/Embalmer Relationship Specialty Start Date End Date Kyra Driscoll MD [address] [place] [address] PCP - General Family Medicine 06/03/19 03/03/24 Elizabeth Dean NP [address] [place] [address] PCP - General Family Medicine 02/25/25 documented as of this encounter
--- OUTSIDE RECORDS SUMMARY | 2025-10-01 14:08 | XMS_ITS | Encounter Summary ---
Author Organization [employer] Address 75 [facility] 7t [place] [address] Care Team Providers Care Mail Officer Name Role Phone Kyra Driscoll MD Primary Care Provide r Elizabeth Dean NP Primary Care Provider [phone] Reason for Visit * Reason Comments Med Refill Encounter Details Date Type Department Care Team ([facility] Contact Info) Description 04/22/2023 Refill [facility] MEDICINE 230 [place], [place] [phone] Kyra Driscoll MD 230 [place], [place] [phone] Moderate persistent asthma without complication Social History [...] Upcoming Encounters Date Type Department Care Team ([facility] Contact Info) Description 10/21/2025 1:00 PM EST Medication Management [address] [address] Juni Haji, HennyD 230 [place] [address] 11/04/2025 1:45 PM EST Office Visit [address] [address] Elizabeth Dean NP [address] [place] [address] 11/11/2025 9:30 AM EST Clinical Support [address] [address] Julia Lu RN documented as of this encounter Visit Diagnoses Diagnosis Moderate persistent asthma without complication documented in this encounter Care Teams Mail Officer Relationship Specialty Start Date End Date Kyra Driscoll MD [address] [place] [address] PCP - General Family Medicine 06/03/19 03/03/24 Elizabeth Dean NP [address] [place] [address] PCP - General Family Medicine 02/25/25 documented as of this encounter
--- OUTSIDE RECORDS SUMMARY | 2025-10-01 14:08 | XMS_ITS | Encounter Summary ---
Author Organization [employer] Address 75 [facility] 7t [place] [address] Care Team Providers Care Cane Packer Name Role Phone Elizabeth Dean NP Primary Care Provider [phone] Reason for Visit * Reason Onset Date Comments Med Refill 10/01/2025 Encounter Details Date Type Department Care Team ([facility] st Contact Info) Description 10/01/2025 Telephone [facility] MEDICINE 230 [place], [place] [phone] Elizabeth Dean NP 230 [place] [address] Med Refill Social History Tobacco Use Types Packs/Day Years [...] encounter Miscellaneous Notes * Telephone Encounter - Sharyn Stephenson - 10/01/2025 1:07 PM EST Patient here to get med refill for Buspiron 7.5 mg , Quetiapine 25 mg and Primidone 50 mg. Patient unable to get med refill for BHN due to pt missed visit and needs meds. documented in this encounter Plan of Treatment Upcoming Encounters Date Type Department Care Team (Late st Contact Info) Description 10/21/2025 1:00 PM EST Medication Management [address] [address] Juni Haji, HennyD [address] [place] [address] 11/04/2025 1:45 PM EST Office Visit [address] [address] Elizabeth Dean NP [address] [place] [address] 11/11/2025 9:30 AM EST Clinical Support [address] [address] Julia Lu RN documented as of this encounter Visit Diagnoses Not on filedocumented in this encounter Additional Health Concerns Assessment Noted Time PHQ-9 Depression Total Score: 20 025 7:51 AM EDT documented as of this encounter Care Teams Cane Packer Relationship Specialty Start Date End Date Elizabeth Dean NP [address] [place] [address] PCP - General Family Medicine 02/25/25 documented as of this encounter
--- OUTSIDE RECORDS SUMMARY | 2025-10-01 14:08 | XMS_ITS | Encounter Summary ---
Author Organization [employer] Address [address] [place] [address] 7t [place] [address] Care Team Providers Care Wet Room Worker Name Role Phone Kyra Driscoll MD Primary Care Provide r Elizabeth Dean NP Primary Care Provider [phone] Reason for Visit * Reason Comments Med Refill Encounter Details Date Type Department Care Team (Late st Contact Info) Description 06/16/2023 Refill [facility] MEDICINE 230 [place], [place] [phone] Kyra Driscoll MD 230 [place], [place] [phone] Other muscle spasm Social History Tobacco Use [...] Description 10/21/2025 1:00 PM EST Medication Management [facility] MED[facility]INE 230 [place], [place] [phone] Juni Haji, PharmD 230 [place], [place] [phone] 11/04/2025 1:45 PM EST Office Visit [address] [address] Elizabeth Dean [place] [address] 11/11/2025 9:30 AM EST Clinical Support [address] [address] Julia Lu RN documented as of this encounter Visit Diagnoses Diagnosis Other muscle spasm documented in this encounter Care Teams Wet Room Worker Relationship Specialty Start Date End Date Kyra Driscoll MD [address] [place] [address] PCP - General Family Medicine 06/03/19 03/03/24 Elizabeth Dean NP [address] [place] [address] PCP - General Family Medicine 02/25/25 documented as of this encounter
--- OUTSIDE RECORDS SUMMARY | 2025-10-01 14:08 | XMS_ITS | Clinical Summary ---
Author Organization [facility] Address [address] [place] [address] Care Team Providers Care Mailroom Messenger Name Role Phone Kyra Driscoll MD Primary Care Provide r Surgical History Surgery Date Site/Laterality Comments TUBAL LIGATION 2006 Bilateral PROCEDURE: HISTORICAL TUBAL LIGATION OTHER SURGICAL HISTORY 2006 PROCEDURE: AL HYSTEROSCOPY ENDOMETRIAL ABLATION GASTRIC BYPASS 2003 PROCEDURE: GASTRIC BYPASS FOR OBESIT; COMMENT: revision 2019 BREAST REDUCTION 2002 PROCEDURE: AL BREAST REDUCTION OTHER SURGICAL HISTORY 2009 PROCEDURE: ---- HEMORRHOIDS ---- CARPAL TUNNEL RELEASE 2010 PROCEDURE: AL NEUROPLASTY &/TRANSPOS MEDIAN NRV CARPAL TUNNE KNEE ARTHROPLASTY Right PROCEDURE: AL ARTHRS KNEE ABRASION ARTHRP/CREDIT CASHIER DRLG/MICROFX BACK SURGERY PROCEDURE: HISTORICAL BACK SURGERY; COMMENT: lower back ? 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 ([facility] V24, [facility] V28) DX:Opioid depend w opioid-in maxime psychotic disorder w delusions ([facility]) Back pain DX:Back pain Cramps of lower extremity DX:Medical Records Analyst mps of lower extremity Gastric bypass status for obesity DX:Gastric bypass status for obesity Knee pain DX:Knee pain Back pain DX:Back pain Systolic murmur DX:Systolic murm ur Seizure disorder ([facility] V2 4, [facility] V28) DX:Seizure disorder ([facility]) Bilateral hearing loss DX:Bilate ral hearing loss Bronchitis DX:Bronchitis Migraine DX:Migraine Scalp psoriasis DX:Scalp psorias is Bipolar 1 disorder (CMS/[facility] V24, [facility]/HCC V28) DX:Bipolar 1 disorder (HCC) Family [...] RESULTING AGENCY - 03/27/2020 12:15 PM EDT [id number] THINPREP PAP, IMAGED: NEGATIVE FOR SQUAMOUS INTRAEPITHELIAL [...] Recently Relevant to Health Maintenance Care Teams Mailroom Messenger Relationship Specialty Start Date End Date Kyra Driscoll MD [address] [phone] PCP - General Internal Medicine 08/13/21
--- OUTSIDE RECORDS SUMMARY | 2025-10-01 14:08 | XMS_ITS | Encounter Summary ---
Author Organization [employer] Address [address] [facility] [address] 7t [place] [address] Care Team Providers Care Rock Mason Name Role Phone Elizabeth Dean NP Primary Care Provider [phone] Reason for Visit * Reason Onset Date Comments Med Refill 09/25/2025 Pt walked in req uesting med refill for Flonase,Nizoral,ketotifen fumarate,multivitamin and ubrogepant. Encounter Details Date Type Department Care Team (Late st Contact Info) Description 09/25/2025 Refill [facility] MEDICINE 230 [place], [place] [phone] Eliazbeth Dean, MARCO 230 [place], [place] [phone] Social History Tobacco Use Types Packs/Day Years [...] as of this encounter Miscellaneous Notes * Addendum Note - Alfreda Morales RN - 09/26/2025 9:48 AM ESTAddended by: ALFREDA MORALES on: 09/26/2025 09:48 AM Modules accepted: Orders * Telephone Encounter - Alfreda Morales RN - 09/26/2025 9:37 AM EST TC placed to [facility] pharmacy to determine if pt has refills on the below medications. Spoke with Chelo who states the following regarding the medications: -Ketotifen Fumarate 0.035 % solution: refill available -Ubrogepant (Ubrelvy) 100 MG tablet: available to fill -fluticasone (Flonase) 50 MCG/ACT nasal spray: do not have on file, would require prescription to be sent -Multiple Vitamin (Multivitamin) tablet: do not have on file, would require prescription to be sent -ketoconazole (NIZOral) 2 % shampoo: refill available Message forwarded to PCP regarding pt request for fluticasone (Flonase) 50 MCG/ACT nasal spray and Multiple Vitamin (Multivitamin) tablet. Medications pended to PCP for review and completion. * Telephone Encounter - Dmitry Hernández - 09/25/2025 3:18 PM EST Pt walked in requesting med refill for Flonase,Nizoral,ketotifen fumarate,multivitamin and ubrogepant. documented in this encounter Plan of Treatment Upcoming Encounters Date Type Department Care Team (Late st Contact Info) Description 10/21/2025 1:00 PM EST Medication Management [address] [address] Juni Haji, HennyD [address] [place] [address] 11/04/2025 1:45 PM EST Office Visit [address] [address] Elizabeth Dean NP [address] [place] [address] 11/11/2025 9:30 AM EST Clinical Support [address] [address] Julia Lu RN documented as of this encounter Visit Diagnoses Not on filedocumented in this encounter Additional Health Concerns Assessment Noted Time PHQ-9 Depression Total Score: 20 025 7:51 AM EDT documented as of this encounter Care Teams Rock Mason Relationship Specialty Start Date End Date Elizabeth Dean NP [address] [place] [address] PCP - General Family Medicine 02/25/25 documented as of this encounter
--- OUTSIDE RECORDS SUMMARY | 2025-10-01 14:08 | XMS_ITS | Encounter Summary ---
Author Organization [employer] Address 75 [facility] 7t [place] [address] Care Team Providers Care Opticianry Teacher Name Role Phone Kyra Driscoll MD Primary Care Provide r Elizabeth Dean NP Primary Care Provider [phone] Reason for Visit * Reason Comments Med Refill Encounter Details Date Type Department Care Team (Late st Contact Info) Description 06/13/2023 Refill [facility] MEDICINE 230 [place], [place] [phone] Porfirio Saldivar MD 230 [place], [place] [phone] Uncomplicated opioid dependence (CMS/HCC) Social History Tobacco [...] Description 10/21/2025 1:00 PM EST Medication Management [facility] MEDICINE 230 [place], [place] [phone] Juni Haji, PharmD 230 [place], [place] [phone] 11/04/2025 1:45 PM EST Office Visit [address] [address] Elizabeth Dean NP [address] [place] [address] 11/11/2025 9:30 AM EST Clinical Support [address] [address] Julia Lu RN documented as of this encounter Visit Diagnoses Diagnosis Uncomplicated opioid dependence (CMS/HCC) (HCC) documented in this encounter Care Teams Opticianry Teacher Relationship Specialty Start Date End Date Kyra Driscoll MD [address] [place] [address] PCP - General Family Medicine 06/03/19 03/03/24 Elizabeth Dean NP [address] [place] [address] PCP - General Family Medicine 02/25/25 documented as of this encounter
--- OUTSIDE RECORDS SUMMARY | 2025-10-01 14:08 | XMS_ITS | Encounter Summary ---
Author Organization [employer] Address 75 [facility] 7t [place] [address] Care Team Providers Care Conservation Coordinator Name Role Phone Elizabeth Dean NP Primary Care Provider [phone] Reason for Visit * Reason Comments Med Refill Encounter Details Date Type Department Care Team ([facility] st Contact Info) Description 08/11/2025 Refill [facility] MEDICINE 230 [place], [place] [phone] Elizabeth Dean NP 230 [place], [place] [phone] Moderate persistent asthma without complication Social History [...] Description 10/21/2025 1:00 PM EST Medication Management [address] [address] Juni Haji, HennyD [address] [place] [address] 11/04/2025 1:45 PM EST Office Visit [address] [address] Elizabeth Dean NP [address] [place] [address] 11/11/2025 9:30 AM EST Clinical Support [address] [address] Julia Lu, BEN documented as of this encounter Visit Diagnoses Diagnosis Moderate persistent asthma without complication documented in this encounter Additional Health Concerns Assessment Noted Time PHQ-9 Depression Total Score: 20 025 7:51 AM EDT documented as of this encounter Care Teams Conservation Coordinator Relationship Specialty Start Date End Date Elizabeth Dean NP [address] [place] [address] PCP - General Family Medicine 02/25/25 documented as of this encounter
--- OUTSIDE RECORDS SUMMARY | 2025-10-01 14:08 | XMS_ITS | Encounter Summary ---
Author Organization [employer] Address 75 [facility] 7t [place] [address] Care Team Providers Care Circuit Judge Name Role Phone Kyra Driscoll MD Primary Care Provide r Elizabeth Dean NP Primary Care Provider [phone] Reason for Visit * Reason Comments Med Refill Encounter Details Date Type Department Care Team (Late Contact Info) Description 04/17/2023 Refill [facility]S [address] [place], [place] [phone] [facility] [address] [place] [address] Iron deficiency Social History Tobacco Use Types [...] Description 10/21/2025 1:00 PM EST Medication Management [address] [address] Juni Haji, PharmD 230 [place] [address] 11/04/2025 1:45 PM EST Office Visit [address] [address] Elizabeth Dean NP [address] [place] [address] 11/11/2025 9:30 AM EST Clinical Support [address] [address] Julia Lu RN documented as of this encounter Visit Diagnoses Diagnosis Iron deficiency Disorders of iron metabolism documented in this encounter Care Teams Circuit Judge Relationship Specialty Start Date End Date Kyra Driscoll MD [address] [place] [address] PCP - General Family Medicine 06/03/19 03/03/24 Elizabeht Dean NP [address] [place] [address] PCP - General Family Medicine 02/25/25 documented as of this encounter
--- OUTSIDE RECORDS SUMMARY | 2025-10-01 14:08 | XMS_ITS | Encounter Summary ---
Author Organization [employer] Address 75 [facility] 7t [place] [address] Care Team Providers Care Conference Center Manager Name Role Phone Kyra Driscoll MD Primary Care Provide r Elizabeth Dean NP Primary Care Provider [phone] Reason for Visit * Reason Onset Date Comments Durable Medical Equipment 03/28/2023 Encounter Details Date Type Department Care Team (Late st Contact Info) Description 03/28/2023 Telephone [facility] MEDICINE 230 [place], [place] [phone] Kyra Driscoll MD 230 [place], [place] [phone] Durable Medical Equipment Social History Tobacco Use [...] Description 10/21/2025 1:00 PM EST Medication Management [address] [address] Juni Haji, PharmD [address] [place] [address] 11/04/2025 1:45 PM EST Office Visit [address] [address] Elizabeth Dean NP [address] [place] [address] 11/11/2025 9:30 AM EST Clinical Support [address] [address] Julia Lu RN documented as of this encounter Visit Diagnoses Not on filedocumented in this encounter Care Teams Conference Center Manager Relationship Specialty Start Date End Date Kyra Driscoll MD [address] [place] [address] PCP - General Family Medicine 06/03/19 03/03/24 Elizabeth Dean NP [address] [place] [address] PCP - General Family Medicine 02/25/25 documented as of this encounter
--- OUTSIDE RECORDS SUMMARY | 2025-10-01 14:08 | XMS_ITS | Encounter Summary ---
Author Organization [employer] Address 75 [facility] 7t [place] [address] Care Team Providers Care Healthcare Account Manager Name Role Phone Kyra Driscoll MD Primary Care Provide r Elizabeth Dean NP Primary Care Provider [phone] Reason for Visit * Reason Comments Med Refill Encounter Details Date Type Department Care Team ([facility] Contact Info) Description 06/07/2023 Refill [facility] MEDICINE 230 [place], [place] [phone] Rachel Cash FNP [address] [place], [place] [phone] Allergy, subsequent encounter Social History Tobacco Use [...] 1:00 PM EST Medication Management [facility] MEDICINE 230 [place], [place] [phone] Juni Haji, PharmD 230 [place], [place] [phone] 11/04/2025 1:45 PM EST Office Visit [address] [address] Elizabeth Dean NP [address] [place] [address] 11/11/2025 9:30 AM EST Clinical Support [address] [phone] Julia Lu RN documented as of this encounter Visit Diagnoses Diagnosis Allergy, subsequent encounter documented in this encounter Care Teams Healthcare Account Manager Relationship Specialty Start Date End Date Kyra Driscoll MD [address] [place] [address] PCP - General Family Medicine 06/03/19 03/03/24 Elizabeth Dean NP [address] [place] [address] PCP - General Family Medicine 02/25/25 documented as of this encounter
--- OUTSIDE RECORDS SUMMARY | 2025-10-01 14:08 | XMS_ITS | Encounter Summary ---
Author Organization [employer] Address [address] [facility] 7t [place] [address] Care Team Providers Care Provisioning Specialist Name Role Phone Kyra Driscoll MD Primary Care Provide r Elizabeth Dean NP Primary Care Provider Reason for Visit * Reason Comments Med Refill Encounter Details Date Type Department Care Team (Late Contact Info) Description 03/10/2023 Refill [facility] MEDICINE 230 [place], [place] [phone] Nurys Mcdonnell MD 230 [place], [place] [phone] Allergy, subsequent encounter Social History Tobacco Use [...] Upcoming Encounters Date Type Department Care Team ([facility] Contact Info) Description 10/21/2025 1:00 PM EST Medication Management [address] [address] Juni Haji, PharmD 230 [place] [address] 11/04/2025 1:45 PM EST Office Visit [address] [address] Elizabeth Dean NP [address] [place] [address] 11/11/2025 9:30 AM EST Clinical Support [address] [address] Julia Lu RN documented as of this encounter Visit Diagnoses Diagnosis Allergy, subsequent encounter documented in this encounter Care Teams Provisioning Specialist Relationship Specialty Start Date End Date Kyra Driscoll MD [address] [place] [address] PCP - General Family Medicine 06/03/19 03/03/24 Elizabeth Dean NP [address] [place] [address] [phone] PCP - General Family Medicine 02/25/25 documented as of this encounter
--- OUTSIDE RECORDS SUMMARY | 2025-10-01 14:08 | XMS_ITS | Encounter Summary ---
Author Organization [employer] Address 75 [facility] 7t [place] [address] Care Team Providers Care Traffic Personnel Supervisor Name Role Phone Kyra Driscoll MD Primary Care Provide r Elizabeth Dean NP Primary Care Provider [phone] Reason for Visit * Reason Comments Med Refill Encounter Details Date Type Department Care Team ([facility] Contact Info) Description 04/24/2023 Refill [facility] MEDICINE 230 [place], [place] [phone] Kyra Driscoll MD 230 [place], [place] [phone] Allergy, subsequent encounter Social History Tobacco Use [...] Upcoming Encounters Date Type Department Care Team ([facility] Contact Info) Description 10/21/2025 1:00 PM EST Medication Management [address] [address] Juni Haji, HennyD [address] [place] [address] 11/04/2025 1:45 PM EST Office Visit [address] [address] Elizabeth Dean NP [address] [place] [address] 11/11/2025 9:30 AM EST Clinical Support [address] [address] Julia Lu RN documented as of this encounter Visit Diagnoses Diagnosis Allergy, subsequent encounter documented in this encounter Care Teams Traffic Personnel Supervisor Relationship Specialty Start Date End Date Kyra Driscoll MD [address] [place] [phone] PCP - General Family Medicine 06/03/19 03/03/24 Elizabeth Dean NP [address] [place] [phone] PCP - General Family Medicine 02/25/25 documented as of this encounter
--- OUTSIDE RECORDS SUMMARY | 2025-10-01 14:08 | XMS_ITS | Encounter Summary ---
Author Organization [employer] Address 75 [facility] 7t [place] [address] Care Team Providers Care Vascular Neurologist Name Role Phone Kyra Driscoll MD Primary Care Provide r Elziabeth Dean NP Primary Care Provider [phone] Reason for Visit * Reason Comments Med Refill Encounter Details Date Type Department Care Team ([facility] Contact Info) Description 02/06/2023 Refill [facility] MEDICINE 230 [place] [address] Rachel Cash FNP 505 [place] [address] IFG (impaired fasting glucose); Uncomplicated opioid dependence [...] Upcoming Encounters Date Type Department Care Team ([facility] Contact Info) Description 10/21/2025 1:00 PM EST Medication Management [address] [address] Juni Haji, Liliana [address] [place] [address] 11/04/2025 1:45 PM EST Office Visit [address] [address] Elizabeth Dean NP [address] [place] [address] 11/11/2025 9:30 AM EST Clinical Support [address] [address] Julia Lu RN documented as of this encounter Visit Diagnoses Diagnosis IFG (impaired fasting glucose) Uncomplicated opioid dependence (CMS/HCC) (HCC) documented in this encounter Care Teams Vascular Neurologist Relationship Specialty Start Date End Date Kyra Driscoll MD [address] [place] [address] PCP - General Family Medicine 06/03/19 03/03/24 Elizabeth Dean NP [address] [place] [address] PCP - General Family Medicine 02/25/25 documented as of this encounter
--- OUTSIDE RECORDS SUMMARY | 2025-10-01 14:08 | XMS_ITS | Encounter Summary ---
Author Organization [employer] Address 75 [facility] 7t [place] [address] Care Team Providers Care Apple Turner Name Role Phone Elizabeth Dean NP Primary Care Provider [phone] Reason for Visit * Reason Comments Med Change Request Encounter Details Date Type Department Care Team ([facility] Contact Info) Description 09/26/2025 Refill [facility] MEDICINE 230 [place], [place] [phone] Elizabeth Dean NP 230 [place], [place] [phone] Social History Tobacco Use Types Packs/Day Years [...] 10/21/2025 1:00 PM EST Medication Management [address] [address] Juni Haji, PharmD [address] [place] [address] 11/04/2025 1:45 PM EST Office Visit [address] [address] Elizabeth Dean NP [address] [place] [address] 11/11/2025 9:30 AM EST Clinical Support [address] [address] Julia Lu, BEN documented as of this encounter Visit Diagnoses Not on filedocumented in this encounter Additional Health Concerns Assessment Noted Time PHQ-9 Depression Total Score: 20 025 7:51 AM EDT documented as of this encounter Care Teams Apple Turner Relationship Specialty Start Date End Date Elizabeth Dean NP [address] [place] [address] PCP - General Family Medicine 02/25/25 documented as of this encounter
--- OUTSIDE RECORDS SUMMARY | 2025-10-01 14:08 | XMS_ITS | Encounter Summary ---
Author Organization [facility] Address [address] [facility] [address] [place] [address] Phone Care Team Providers Care Playground Worker Name Role Phone Nohemi Nunez DO Primary Care Provider Encounter Details Date Type Department Care Team (Late st Contact Info) Description 01/15/2018 Ancillary Orders [facility] [address] [place] [address] [place], [place] [phone] Kyle Lundberg DO [address] [place] [address] Tachycardia Social History Tobacco Use Types Packs/Day [...] tachycardia documented in this encounter Care Teams Playground Worker Relationship Specialty Start Date End Date Nohemi Nunez DO [address] [place] [address] PCP - General 11/09/17 documented as of this encounter Additional Source Comments The information contained in this document represents components of the legal health record. It is not the complete legal health record.[facility]
--- OUTSIDE RECORDS SUMMARY | 2025-10-01 14:09 | XMS_ITS | Clinical Summary ---
Author Organization [facility] Address [address] [facility] [address] [place] [address] Phone Care Team Providers Care Quilter Fixer Name Role Phone Mayra Nohemi Primary Care [...] file Insurance MEDICARE PART A & B [facility] MEDICARE PART A & B [facility] MEDICARE PART A & B [place] PART A & B [facility] PART A & [place] A & B Member Subscriber Plan / Payer ( fective 2017-Present) Name:Christie Ortiz Member ID:[id number] Relation to Subscriber:Self Name:Christie Ortiz Subscriber ID:[id number] Payer ID:[id number] Group ID:Not on file Type:Medicare Address: [employer] [address] [place] [id number] [place] A [place] B [facility] Care Teams Quilter Fixer Relationship Specialty Start Date End Date Nohemi Nunez DO [address] [place] [address] PCP - General 11/09/17 Additional Source Comments The information contained in this document represents components of the legal health record. It is not the complete legal health record.[facility]
--- OUTSIDE RECORDS SUMMARY | 2025-10-01 14:09 | XMS_ITS | Encounter Summary ---
Author Organization [employer] Address 75 [facility] 7t [place] [address] Care Team Providers Care Metal Turner Name Role Phone Elizabeth Dean MARCO Primary Care Provider [phone] Reason for Visit * Reason Comments Med Refill Encounter Details Date Type Department Care Team ([facility] st Contact Info) Description 03/25/2025 Refill [facility] MEDICINE 230 [place], [place] [phone] Porfirio Saldivar MD 230 [place], [place] [phone] Uncomplicated opioid dependence (CMS/HCC) Social History Tobacco [...] Description 10/21/2025 1:00 PM EST Medication Management [address] [address] Juni Haji, PharmD [address] [place] [address] 11/04/2025 1:45 PM EST Office Visit [address] [address] Elizabeth Dean NP [address] [place] [address] 11/11/2025 9:30 AM EST Clinical Support [address] [address] Julia Lu, BEN documented as of this encounter Visit Diagnoses Diagnosis Uncomplicated opioid dependence (CMS/HCC) (HCC) documented in this encounter Additional Health Concerns Assessment Noted Time PHQ-9 Depression Total Score: 19 025 7:51 AM EDT documented as of this encounter Care Teams Metal Turner Relationship Specialty Start Date End Date Elizabeth Dean NP [address] [place] [address] PCP - General Family Medicine 02/25/25 documented as of this encounter
--- OUTSIDE RECORDS SUMMARY | 2025-10-01 14:09 | XMS_ITS | Encounter Summary ---
Author Organization [employer] Address [address] [facility] 7t [place] [address] Care Team Providers Care Property Site Manager Name Role Phone Elizabeth Dean NP Primary Care Provider [phone] Reason for Visit * Reason Comments Med Refill Encounter Details Date Type Department Care Team ([facility] Contact Info) Description 03/27/2025 Refill [facility] MEDICINE 230 [place], [place] [phone] Elizabeth Dean NP 230 [place], [place] [phone] Other muscle spasm Social History Tobacco Use [...] Description 10/21/2025 1:00 PM EST Medication Management [address] [address] Juni Haji, PharmD [address] [place] [address] 11/04/2025 1:45 PM EST Office Visit [address] [address] Elizabeth Dean NP [address] [place] [address] 11/11/2025 9:30 AM EST Clinical Support [address] [address] Julia Lu RN documented as of this encounter Visit Diagnoses Diagnosis Other muscle spasm documented in this encounter Additional Health Concerns Assessment Noted Time PHQ-9 Depression Total Score: 19 025 7:51 AM EDT documented as of this encounter Care Teams Property Site Manager Relationship Specialty Start Date End Date Elizabeth Dean NP 230 [place] [address] PCP - General Family Medicine 02/25/25 documented as of this encounter
--- OUTSIDE RECORDS SUMMARY | 2025-10-01 14:09 | XMS_ITS | Clinical Summary ---
Author Organization [employer] Address [address] [place] [address] Care Team Providers Care Funds Development Director Name Role Phone Elizabeth Dean MARCO Primary Care Provider [phone] Allergies Active Allergy Reactions Criticality Noted Date [...] eye(s) every 6 (six) hours. 019 Active FREESTYLE LITE test stripIndications :IFG (impaired fasting glucose) TEST BLOOD SUGAR TWICE DAILY 100 each 11 023 Active TRUEplus Lancets 33G miscIndications: IFG (impaired fasting glucose) TEST BLOOD SUGAR TWICE DAILY 100 each 11 023 Active folic acid (Folvite) 1 MG tablet TAKE 1 TABLET BY MOUTH EVERY MORNING 90 tablet 023 Active TRUEplus Glucose On The Go 4 g chewable tabletIndication s:IFG (impaired fasting glucose) CHEW 4 TABLETS BY MOUTH NEEDED FOR BLOOD SUGAR (<70 MG/DL) DIRECTED 40 tablet 1 023 Active Spacer/Aero-Hold ing Chambers (OptiChamber Sophia) [...] OR SHORTNESS OF BREATH 18 g 3 09/25/20 25 3:52 PM EST 025 Active Accu-Chek FastClix Lancets miscIndications: Hypoglycemia [...] tablet 2 09/19/20 25 1:26 PM EST 025 Active clobetasol (Temovate) 0.05 % external solutionIndicati ons:Seborrheic dermatitis APPLY TO THE AFFECTED AREA(S) THREE TIMES PER WEEK 50 mL 1 09/19/20 1:26 PM EST Active docusate sodium (Colace) 100 MG capsule TAKE 1 CAPSULE BY MOUTH TWICE DAILY IN THE MORNING AND IN THE EVENING 180 capsule 1 09/19/20 1:26 PM EST Active Fluticasone Furoate-Vilanter ol (Breo Ellipta) 200-25 MCG/ACT aerosol powder Inhale 1 puff Once per day. 30 each 1 09/19/20 1:26 PM EST 2024 Active OXcarbazepine (Trileptal) 600 MG tabletIndication s:Seizure (CMS/HCC) (HCC) Take 1 tablet (600 mg) by mouth 2 times daily. 60 tablet 2 Active ondansetron ODT (Zofran-ODT) 4 MG disintegrating tabletIndication s:Chronic nausea DISSOLVE 1 TABLET BY MOUTH EVERY TWELVE HOURS DIRECTED 30 tablet 1 Active montelukast (Singulair) 10 MG tabletIndication s:COPD (chronic obstructive pulmonary disease) with chronic bronchitis (CMS/HCC) (HCC) Take 1 tablet (10 mg) by mouth [...] up to 28 days. 14 tablet 1 09/29/20 25 2:43 PM EST 2024 Active Ketotifen Fumarate 0.035 % solutionIndicati ons:Seasonal allergic rhinitis due to pollen INSTILL 1 DROP IN EACH EYE TWICE DAILY IN THE MORNING AND AT BEDTIME NEEDED FOR ITCHING OR FOR ALLERGIES 10 mL 2 09/29/20 25 2:43 PM EST Active prazosin (Minipress) 1 MG capsule TAKE 1 CAPSULE BY MOUTH EVERY DAY AT BEDTIME NEEDED 30 capsule 1 09/19/20 1:26 PM EST Active EPINEPHrine (Epipen) 0.3 [...] BY MOUTH EVERY DAY 90 tablet 09/19/20 1:26 PM EST Active gabapentin (Neurontin) 800 MG tabletIndication s:Neuropathic pain TAKE 1 TABLET BY MOUTH THREE TIMES DAILY 270 tablet 09/19/20 1:26 PM EST Active Buprenorphine HCl-Naloxone HCl (Suboxone) 8-2 MG SL filmIndications: Uncomplicated opioid dependence (CMS/HCC) ([facility]) Place 1 Film under the [...] every other day. 30 tablet 2 2024 Active acetaminophen (Tylenol 8 Hour) 650 MG ER tablet Take 1 tablet by mouth every 8 (eight) hours if needed for pain. Active albuterol (2.5 MG/3ML) 0.083% nebulizer solutionIndicati ons:Moderate persistent asthma without complication INHALE 1 AMPULE USING A NEBULIZER EVERY 6 HOURS NEEDED FOR WHEEZING OR SHORTNESS OF BREATH 75 mL 1 09/25/20 25 3:52 PM EST Active fluticasone (Flonase) 50 MCG/ACT nasal spray Administer 1 spray into each nostril every 12 (twelve) hours. 16 g 1 09/29/20 25 2:43 PM EST Active Multiple Vitamin (Multivitamin) tablet TAKE 1 TABLET BY MOUTH ONCE A DAY 180 tablet 3 025 Active acetaminophen (Tylenol) 500 MG tablet Take [...] and 1 tablet in the evening. 021 2024 Discontinued( Med list cleanup (will not trigger notification to Pharmacy)) calcium carbonate (Os-Doron) 1250 (500 Ca) MG chewable tablet Chew 1 tablet in the morning. 019 2024 Discontinued( Med list cleanup (will not trigger notification to Pharmacy)) clonazePAM (KlonoPIN) 1 MG tablet TAKE 1 TABLET BY MOUTH EVERY MORNING and TAKE 2 TABLETS BY MOUTH EVERY DAY AT BEDTIME 023 2024 Discontinued( Med list cleanup (will not trigger notification to Pharmacy)) Continuous Blood Gluc Slab Grinder (FreeStyle Cindy 2 [place]) device USE DIRECTED 2024 Discontinued( Med list cleanup (will not trigger notification to Pharmacy)) Continuous Blood Gluc Sensor (FreeStyle Cindy 2 Sensor) [facility] USE DIRECTED. CHANGE EVERY 14 DAYS 023 2024 Discontinued( Med list cleanup (will not trigger notification to Pharmacy)) cyclobenzaprine (Flexeril) 10 MG tablet Take 10 mg by mouth if needed in the morning, at noon, and at bedtime. 022 2024 Discontinued( Med list cleanup (will not trigger notification to Pharmacy)) dexAMETHasone (Decadron) 1 MG tablet Take 1 mg by mouth 1 (one) time. 022 2024 Discontinued( Med list cleanup (will not trigger notification to Pharmacy)) Diclofenac Sodium 1 % gel Apply topically every 8 (eight) hours. 2024 Discontinued( Med list cleanup (will not trigger notification to Pharmacy)) dilTIAZem ER (Tiazac) 240 MG 24 hr capsule Take 240 mg by mouth. 2024 Discontinued( Med list cleanup (will not trigger notification to Pharmacy)) fluocinolone ([place]oot[place]) 0.01 % external oil apply by topical route thin layer to damp scalp massage well and cover use for twice weekly. Leave for overnight then wash off 2024 Discontinued( Med list cleanup (will not trigger notification to Pharmacy)) fluticasone (Flonase) 50 MCG/ACT nasal spray Administer 1 spray into affected nostril(s) every 12 (twelve) hours. 2024 Discontinued( Reorder (will not trigger notification to Pharmacy)) glucose-vitamin [...] (will not trigger notification to Pharmacy)) pancrelipase, Izi-Chgs-Otgn, (Creon) 9471-4460 units capsule Take 1 capsule by mouth. 018 2024 Discontinued( Med list cleanup (will not trigger notification to Pharmacy)) thiamine (Vitamin B-1) 50 MG tablet Take 50 mg by mouth at bedtime. 022 2024 Discontinued( Med list cleanup (will not [...] sleep or allergies. 30 capsule 3 023 2024 Discontinued( Med list cleanup (will not trigger notification to Pharmacy)) Multiple Vitamin (Multivitamin) tablet TAKE 1 TABLET BY MOUTH TWICE DAILY IN THE MORNING AND IN THE EVENING WITH FOOD 180 tablet 3 023 2024 Discontinued( Reorder (will not trigger notification to Pharmacy)) mupirocin [...] IN THE EVENING 90 tablet 5 023 2024 Discontinued( Med list cleanup (will [...] cleanup (will not trigger notification to Pharmacy)) Ketotifen Fumarate 0.035 % solutionIndicati ons:Seasonal allergic [...] ROOM 2 each 2 025 2024 Discontinued albuterol (2.5 MG/3ML) 0.083% nebulizer solutionIndicati ons:Moderate persistent asthma without complication USE 1 AMPULE USING A NEBULIZER EVERY 6 HOURS NEEDED 90 mL 1 025 2024 Discontinued escitalopram (Lexapro) 5 MG tabletIndication s:Major depressive disorder in full remission, unspecified whether recurrent (CMS/[facility]) TAKE 1 TABLET BY MOUTH EVERY DAY 30 tablet 1 025 2024 Discontinued( Med list cleanup (will not trigger notification to Pharmacy)) Suboxone 8-2 MG SL filmIndications: Uncomplicated opioid dependence (CMS/HCC) ([facility]) Place 1 Film under the tongue 3 times daily for 28 days. 84 Film 2024 Discontinued( Reorder (will not trigger notification to Pharmacy)) Vraylar 1.5 MG capsule TAKE 1 CAPSULE BY MOUTH ONCE DAILY 30 capsule 2024 Discontinued( Med list cleanup (will not trigger notification to Pharmacy)) tiZANidine (Zanaflex) 4 MG tabletIndication s:Other muscle spasm TAKE 1 TABLET BY MOUTH EVERY 8 HOURS NEEDED. DO NOT EXCEED 3 TABLETS PER DAY. 90 tablet 2024 Discontinued ondansetron (Zofran) 4 MG tabletIndication [...] MG SL filmIndications: Uncomplicated opioid dependence (CMS/HCC) ([facility]) Place 1 Film under the tongue 3 times daily for 28 days. 84 Film 025 2024 Discontinued( Med list cleanup (will not trigger notification to Pharmacy)) Multiple Vitamin (Multivitamin) tablet Administer 1 spray into affected nostril(s) Once per day. 180 tablet 3 025 2024 Discontinued Active Problems Problem Noted [...] of difficulty breathing. case reviewed with Dr. Gordon Expect called to [facility] and pt transported via ambulance Seizures ([facility]) 02/28/2025 NARCISO positive 02/28/2025 Class [...] obstruction 01/13/2025 Cervical spondylosis without myelopathy 01/14/20 25 Assessment & Plan (04/07/2025 4:21 PM EDT): Pt requesting neck pillow Dme set up Incomplete right bundle branch block 01/13/2025 Lumbar radiculopathy 01/13/2025 Mixed bipolar affective disorder, mild ([facility]/HCC) 01/13/2025 Assessment & Plan (04/07/2025 4:20 PM EDT): Referral to psychiatry, Renewed meds Multiple sclerosis 01/13/2025 Spasm 01/13/2025 Systemic lupus erythematosus ([facility]/HCC) Assessment & Plan (03/11/2025 11:55 AM EDT): [...] has an open endo referral. I called [facility] endo. They said they recently lost 4 or 5 providers so they are booked out until October. They happened to have an open appointment MondayMarch 06 at 1545. [address], [address], [place]. I called patient and informed her of her appointment. Migraine headache 12/02/2022 Neck pain 12/02/2022 Obstructive sleep apnea syndrome 12/02/2022 Assessment & Plan (08/25/2025 1:04 PM EDT): Orders: Referral to Sleep Medicine; Future Pain in elbow 12/02/2022 Positive antinuclear antibody 12/02/2022 Rash 12/02/2022 Seropositive rheumatoid arthritis ([facility]/HCC) 11/07 Assessment & Plan (03/11/2025 11:55 AM [...] Dermatochalasis of both upper eyelids 03/15/2019 Seizure ([facility]) 03/15/2019 Assessment & Plan (08/25/2025 [...] obstructive pu lmonary disease) with chronic bronchitis ([facility]) 11/29/2017 Assessment & Plan (08/25/2025 [...] in early remission, on maintenance therapy, dependence ([facility]) 09/04/2015 Fibromyositis 04/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 Assessment & [...] pain 04/04/2025 04/08/2025 Depressive disorder 04/04/2025 04/11/20 Viral upper respiratory tract infection 02/25/2025 04/08/2025 Hospital discharge follow-up 01/13/2025 04/08/2025 Chest discomfort 01/13/2025 04/08/2025 Multiple joint pain 12/02/2022 04/08/20 25 Mood disorder 01/23/2013 03/07/2025 Obesity 01/23/2013 04/08/2025 Encounters Date Type Department Care Team Description 10/01/2025 Telephone [facility] [address] [place] [address] Elizabeth Dean NP Med Refill 09/26/2025 Refill [facility] [address] [place] [address] Elizabeth Dean NP 09/25/2025 Refill [facility] [address] [place] [address] Elizabeth Dean NP 09/24/2025 Telephone [facility] [address] [place] [address] Kasia Moran LPN 09/24/2025 Refill [facility] [address] [place] [address] Elizabeth Dean NP Moderate persistent asthma without complication 09/18/2025 Refill [facility] [address] [place] [address] Elizabeth Dean NP 09/16/2025 10:30 AM EST Office Visit [facility] [address] [place] [phone] Porfirio Saldivar MD Opioid dependence on maintenance agonist therapy, no symptoms (CMS/HCC) (HCC) (Primary Dx); Uncomplicated opioid dependence (CMS/HCC) (HCC) 09/16/2025 Orders Only [facility] External Provider, [facility] 09/16/2025 Refill [facility] [address] [place] [address] Elizabeth Dean NP Allergy, subsequent encounter; Neuropathic pain 09/16/2025 Travel 09/12/2025 Telephone [facility] [address] [place] [phone] Elizabeth Dean NP 09/12/2025 Telephone [facility] [address] [place] [phone] Elizabeth Dean NP Prior Authorization 09/11/2025 Telephone [facility] [address] [place] [phone] Elizabeth Dean NP Error (VOID this visit) (Entered in error/) 09/08/2025 Refill [facility] [address] [facility] [place] [address] Julia Lu RN Uncomplicated opioid dependence ([facility]) ([facility]) 09/08/2025 Refill [facility] [address] [place] [address] Elizabeth Dean NP Other muscle spasm 09/03/2025 Refill [facility] [address] [place] [address] Elizabeth Dean NP Seasonal allergic rhinitis due to pollen; Allergy, subsequent encounter 09/01/2025 Telephone [facility] [address] [place] [address] Elizabeth Dean NP 08/29/2025 Telephone [facility] [address] [place] [address] Elizabeth Dean NP Durable Medical Equipment 08/28/2025 Patient Outreach [facility] [address] [place] [address] [facility] 08/28/2025 Telephone [facility] [address] [place] [address] Elizabeth Dean NP 08/25/2025 11:30 AM EDT Office Visit [facility] [address] [place] [address] Elizabeth Dean NP Acute right ankle pain (Primary Dx); Acute pain of right knee; Pre-diabetes; Hypoglycemia after GI (gastrointestinal) surgery; Seizure (CMS/HCC) ([facility]); Moderate asthma without complication, unspecified whether persistent; Elevated blood pressure reading; Chronic nausea; COPD (chronic obstructive pulmonary disease) with chronic bronchitis (CMS/HCC) ([facility]); Other migraine without status migrainosus, intractable; Incontinence in female; Obstructive sleep apnea syndrome; Morbid obesity (CMS/[facility]) ([facility]) 08/25/2025 Travel 08/25/2025 Refill [facility] [address] [place] [address] Torres Morillo MD 08/22/2025 Telephone [facility] [address] [place] [address] Elizabeth Dean NP chart prep 08/19/2025 9:30 AM EDT Clinical Support [facility] [address] [place] [phone] Julia Lu RN Uncomplicated opioid dependence ([facility]) ([facility]) 08/19/2025 Travel 08/14/2025 Refill [facility] [address] [place] [phone] Elizabeth Daen, MARCO Other muscle spasm; Nausea; Anxiety 08/12/2025 Refill [facility] [address] [place] [phone] Julia Lu RN Uncomplicated opioid dependence ([facility]) ([facility]) 08/11/2025 Patient Outreach [address] [address] Aron Hern[facility] 08/11/[address] [address] Elizabeth Dean NP Moderate persistent asthma without complication 08/06/2025 Refill [facility] [address] [place] [phone] Elizabeth Dean NP Nausea; Anxiety 08/02/2025 Refill [facility] [address] [place] [phone] Elizabeth Dean NP Seborrheic dermatitis; Major depressive disorder in full remission, unspecified whether recurrent ([facility]) 07/31/[address] [address] Elizabeth Dean NP Prior Authorization 07/31/[address] [phone] Elizabeth Dean NP med b form 07/29/[address] [address] Elizabeth Dean NP Moderate persistent asthma without complication 07/25/2025 Patient Outreach [address] [phone] Bartolo [facility] 07/22/2025 9:15 AM EDT Office Visit [address] [place] [address] Porfirio Saldivar MD Uncomplicated opioid dependence ([facility]) (Primary Dx) 07/22/2025 Refill [facility] [address] [place] [address] Elizabeth Dean NP Allergy, subsequent encounter 07/22/2025 Travel 07/15/2025 Refill [facility] [address] [place] [address] Julia Lu RN Uncomplicated opioid dependence (CMS/HCC) 07/03/2025 Telephone [facility] [address] [place] [address] Elizabeth Dean NP 07/03/2025 Telephone [facility] [address] [place] [address] Elizabeth Dean NP Per Elizabeth 07/02/2025 Refill [facility] [address] [place] [address] Elizabeth Dean NP Other muscle spasm from [...] Description 10/21/2025 1:00 PM EST Medication Management [address] [address] Juni Haji, PharmD [address] [place] [address] 11/04/2025 1:45 PM EST Office Visit [address] [phone] Elizabeth Dean, MARCO [address] [place], [place] [phone] 11/11/2025 9:30 AM EST Clinical Support [address] [phone] Julia Lu, RN Health Maintenance Due Date [...] Name Priority Date/Time Associated Diagnosis Comments XR SACROILIAC JOINTS 3+ VIEWS Routine 10/01/2025 12:03 PM EST XR SPINE CERVICAL W/FLEXT AND/OR EXT Routine 10/01/2025 11:54 AM EST XR WRIST 3+ VIEWS LEFT Routine 09/16/2025 [...] Relevant to Health Maintenance Results * XR Sacroiliac Joints 3+ Views (10/01/2025 12:03 PM EST) Anatomical Region Laterality Modality Sacroiliac joint, Pelvis Radiogr aphic Imaging 10/01/2025 12:0 3 PM EST Narrative 10/01/2025 12:29 PM EST [address] [address] XRay Report Signed Patient: Christie Ortiz MR#: [id number] [birth year] : 1975 Acct:[id number] Age/Sex: 50 / F ADM Date: 10/01/25 Loc: HO.HHCX Attending Dr: Tamar Sanchez MD Ordering Physician: Tamar Sanchez MD Date of Service: 10/01/25 Procedure(s): XR sacroiliac joint min 3V Accession Number(s): [id number] cc: Tamar Sanchez MD; Elizabeth Dean NP Reason for Exam: M05.9 - Rheumatoid arthritis with rheumatoid factor, unspecified EXAMINATION: XR SACROILIAC JOINTS CLINICAL INFORMATION: M05.9 - Rheumatoid arthritis with rheumatoid factor, unspecified COMPARISON: None available. TECHNIQUE: 3 views of the sacroiliac joints FINDINGS: The SI joints are symmetrical without erosions, narrowing, sclerosis, or effusion. Postsurgical changes related to posterior lumbar interbody fusion with interbody graft is evident at L4-S1. XR/XR sacroiliac joint min 3V IMPRESSION: Unremarkable sacroiliac joints. Electronically signed by: Garcia Ortiz MD 10/01/2025 12:26 PM EST RP Dictated By: Garcia Ortiz MD Signed By: <Electronically signed by Garcia Ortiz MD in OV> 10/01/25 1226 DD/ 1203 TD/TT: 10/01/25 1204 Strategic Debriefing Specialist: Procedure Note Donotuseinterpreter, Image - 10/01/2025 [place] [address] XRay Report Signed Patient: Christie Ortiz [facility]#: [id number] [birth year] : 1975Acct:[id number] Age/Sex: 50 / FADM Date: 10/01/25 Loc: HO.HHCX Attending Dr: Tamar Sanchez MD Ordering Physician: Tamar Sanchez MD Date of Service: 10/01/25 Procedure(s): XR sacroiliac joint min 3V Accession Number(s): [id number] cc: Tamar Sanchez MD; Elizabeth Dean NP Reason for Exam: M05.9 - Rheumatoid arthritis with rheumatoid factor,unspecified EXAMINATION: XR SACROILIAC JOINTS CLINICAL INFORMATION: M05.9 - Rheumatoid arthritis with rheumatoid factor, unspecified COMPARISON: None available. TECHNIQUE: 3 views of the sacroiliac joints FINDINGS: The SI joints are symmetrical without erosions, narrowing, sclerosis, or effusion. Postsurgical changes related to posterior lumbar interbody fusion with interbody graft is evident at L4-S1. XR/XR sacroiliac joint min 3V IMPRESSION: Unremarkable sacroiliac joints. Electronically signed by: Garcia Ortiz MD 10/01/2025 12:26 PM EST RP Dictated By: Garcia Ortiz MD Signed By: <Electronically signed by Garcia Ortiz MD in OV> 10/01/25 1226 DD/ 1203 TD/TT: 10/01/25 1204 Strategic Debriefing Specialist: [facility] External Provider IMG XR PROCEDURES Final Result * XR Spine Cervical w/ Flext and/ Or Ext (10/01/2025 11:54 AM EST) Anatomical Region Laterality Modality Radiographic Jenna ging 10/01/2025 11:5 4 AM EST Narrative 10/01/2025 12:36 PM EST [facility] [address] [place] [address] XRay Report Signed Patient: Christie Ortiz MR#: [id number] [birth year] : 1975 Acct:[id number] Age/Sex: 50 / F ADM Date: 10/01/25 Loc: .HHCX Attending Dr: Tamar Sanchez MD Ordering Physician: Tamar Sanchez MD Date of Service: 10/01/25 Procedure(s): XR cervical spine w flex/ext Accession Number(s): [id number] cc: Tamar Sanchez MD; Elizabeth Dean NP Reason for Exam: M05.9 - Rheumatoid arthritis with rheumatoid factor, unspecified EXAMINATION: XR CERVICAL SPINE CLINICAL INFORMATION: M05.9 - Rheumatoid arthritis with rheumatoid factor, unspecified COMPARISON: None available. TECHNIQUE: 6 views of the cervical spine, inclusive of flexion and extension views, were obtained. EXAM: CR Xr Cervical Spine W Flex/ex TECHNIQUE: AP, AP odontoid, bilateral oblique, and lateral: Flexion, neutral, and extension view x-rays of the cervical spine. INDICATION: Neck pain , M05.9 - Rheumatoid arthritis with rheumatoid factor, unspecified PRIOR: None FINDINGS: There is mild reversal of the normal cervical lordosis. No fractures are identified. There is no prevertebral soft tissue swelling. There is no widening of the atlantodental space during flexion and extension. C3-4: There is mild disc space narrowing. There is physiologic retrolisthesis during extension. C4-5: There is mild to moderate disc space narrowing with endplate sclerosis and osteophytes. There is moderate bony foraminal narrowing. C5-6: There is mild disc space narrowing. There is 2.5 mm retrolisthesis during extension. Level is aligned during flexion. There is possible left bony foraminal narrowing. Disc spaces are preserved otherwise. XR/XR cervical spine w flex/ext IMPRESSION: There is mild reversal of cervical lordosis. This can be related to degenerative changes, positioning, muscle spasm, or posterior soft tissue injury. Degenerative disc disease is most advanced at C4-5. C5-6 demonstrate borderline instability. There is 2.5 mm retrolisthesis during extension. Level is aligned during flexion. Electronically signed by: Garcia Ortiz MD 10/01/2025 12:32 PM [facility] Dictated By: Garcia Ortiz MD Signed By: <Electronically signed by Garcia Ortiz MD in OV> 10/01/25 1232 DD/ 1154 TD/TT: 10/01/25 1200 Strategic Debriefing Specialist: Procedure Note Donotuseinterpreter, Image - 10/01/[address] [address] XRay Report Signed Patient: Christie Ortiz [facility]#: [id number] [birth year] : 1975Acct:[id number] Age/Sex: 50 / FADM Date: 10/01/25 Loc: .HHCX Attending Dr: Tamar Sanchez MD Ordering Physician: Tamar Sanchez MD Date of Service: 10/01/25 Procedure(s): XR cervical spine w flex/ext Accession Number(s): [id number] cc: Tamar Sanchez MD; Elizabeth Dean NP Reason for Exam: M05.9 - Rheumatoid arthritis with rheumatoid factor,unspecified EXAMINATION: XR CERVICAL SPINE CLINICAL INFORMATION: M05.9 - Rheumatoid arthritis with rheumatoid factor, unspecified COMPARISON: None available. TECHNIQUE: 6 views of the cervical spine, inclusive of flexion and extension views, were obtained. EXAM: CR Xr Cervical Spine W Flex/ex TECHNIQUE: AP, AP odontoid, bilateral oblique, and lateral: Flexion, neutral, and extension view x-rays of the cervical spine. INDICATION: Neck pain , M05.9 - Rheumatoid arthritis with rheumatoid factor, unspecified PRIOR: None FINDINGS: There is mild reversal of the normal cervical lordosis. No fractures are identified. There is no prevertebral soft tissue swelling. There is no widening of the atlantodental space during flexion and extension. C3-4: There is mild disc space narrowing. There is physiologic retrolisthesis during extension. C4-5: There is mild to moderate disc space narrowing with endplate sclerosis and osteophytes. There is moderate bony foraminal narrowing. C5-6: There is mild disc space narrowing. There is 2.5 mm retrolisthesis during extension. Level is aligned during flexion. There is possible left bony foraminal narrowing. Disc spaces are preserved otherwise. XR/XR cervical spine w flex/ext IMPRESSION: There is mild reversal of cervical lordosis. This can be related to degenerative changes, positioning, muscle spasm, or posterior soft tissue injury. Degenerative disc disease is most advanced at C4-5. C5-6 demonstrate borderline instability. There is 2.5 mm retrolisthesis during extension. Level is aligned during flexion. Electronically signed by: Garcia Ortiz MD 10/01/2025 12:32 PM EST Dictated By: Garcia Ortiz MD Signed By: <Electronically signed by Garcia Ortiz MD in OV> 10/01/25 1232 DD/ 1154 TD/TT: 10/01/25 1200 Strategic Debriefing Specialist: [employer] [facility] [employer] External Provider IMG XR PROCEDURES Final Result * XR Wrist 3+ Views Left (09/16/2025 3:20 PM EST) Anatomical Region Laterality Modality Upper Extremities, Wrist Left Radiogr aphic Imaging 09/16/2025 3:20 PM EST Narrative 09/16/2025 3:50 PM EST [address] [address] XRay Report Signed Patient: Christie Ortiz MR#: [id number] [birth year] : 1975 Acct:[id number] Age/Sex: 50 / F ADM Date: 09/16/25 Loc: ALBERT Attending Dr: Tamar Sanchez MD Ordering Physician: Tamar Sanchez MD Date of Service: 09/16/25 Procedure(s): XR wrist LT min 3V Accession Number(s): [id number] cc: Tamar Sanchez MD; Elizabeth Dean NP [...] 09/16/25 1547 DD/ 1520 TD/TT: 09/16/25 1526 Strategic Debriefing Specialist: Procedure Note Donotuseinterpreter, Image - 09/16/[address] [address] XRay Report Signed Patient: Christie Ortiz [facility]#: [id number] [birth year] : 1975Acct:[id number] Age/Sex: 50 / FADM Date: 09/16/25 Loc: HHAddyX Attending Dr: Tamar Sanchez MD Ordering Physician: Tamar Sanchez MD Date of Service: 09/16/25 Procedure(s): XR wrist LT min 3V Accession Number(s): [id number] cc: Tamar Sanchez MD; Elizabeth Dean NP [...] 09/16/2025 03:47 PM EST RP Dictated By: Gacria Ortiz MD Signed By: <Electronically signed by Garcia Ortiz MD in OV> 09/16/25 1547 DD/ 1520 TD/TT: 09/16/25 1526 Strategic Debriefing Specialist: [facility] [employer] [facility] [employer] External Provider IMG XR PROCEDURES Final Result * XR Lumbar Spine Complete 4+ Views (09/16/2025 1:48 PM EST) Anatomical Region Laterality Modality Spine, L-spine Radiographic Jenna ging 09/16/2025 1:48 PM EST Narrative 09/16/2025 3:35 PM EST [address] [address] XRay Report Signed Patient: Christie Ortiz MR#: [id number] [birth year] : 1975 Acct:[id number] Age/Sex: 50 / F ADM Date: 09/16/25 Loc: HO.HHCX Attending Dr: Tamar Sanchez MD Ordering Physician: Tamar Sanchez MD Date of Service: 09/16/25 Procedure(s): XR lumbar spine 4V min Accession Number(s): [id number] cc: Tamar Sanchez MD; Elizabeth Dean [employer]AR[employer] Reason for Exam: M05.9 - Rheumatoid arthritis [...] 09/16/25 1532 DD/ 1348 TD/TT: 09/16/25 1526 Strategic Debriefing Specialist: Procedure Note Donotuseinterpreter, Image - 09/16/2025 [place] [address] XRay Report Signed Patient: Christie Ortiz NMR#: [id number] 31 : 1975Acct:[id number] Age/Sex: 50 / FADM Date: 09/16/25 Loc: HO.HHCX Attending Dr: Tamar Sanchez MD Ordering Physician: Tamar Sanchez MD Date of Service: 09/16/25 Procedure(s): XR lumbar spine 4V min Accession Number(s): [id number] cc: Tamar Sanchez MD; Elizabeth Dean GARNETT FIXER Reason for Exam: M05.9 - Rheumatoid arthritis [...] 09/16/25 1532 DD/ 1348 TD/TT: 09/16/25 1526 Strategic Debriefing Specialist: [facility] [employer] [facility] [employer] External Provider IMG XR PROCEDURES Final Result * XR Ankle 3+ Views Right (09/16/2025 1:41 PM EST) Anatomical Region Laterality Modality Lower Extremities, Ankle Right Radiogr aphic Imaging 09/16/2025 1:41 PM EST Narrative 09/16/2025 3:35 [place] [address] XRay Report Signed Patient: Christie Ortiz MR#: [id number] [birth year] : 1975 Acct:[id number] Age/Sex: 50 / F ADM Date: 09/16/25 Loc: .HHCX Attending Dr: Tamar Sanchez MD Ordering Physician: Sagrario Diane DPM Date of Service: 09/16/25 Procedure(s): XR ankle RT min 3V Accession Number(s): [id number] cc: Elizabeth Dean GARNETT FIXER; Sagrario Diane DPM Reason for Exam: M25.571 [...] 09/16/25 1532 DD/ 1341 TD/TT: 09/16/25 1526 Strategic Debriefing Specialist: Procedure Note Donotuseinterpreter, Image - 09/16/2025 [place] [address] XRay Report Signed Patient: Christie Ortiz NMR#: [id number] 31 : 1975Acct:[id number] Age/Sex: 50 / FADM Date: 09/16/25 Loc: HO.HHCX Attending Dr: Tamar Sanchez MD Ordering Physician: Sagrario Diane DPM Date of Service: 09/16/25 Procedure(s): XR ankle RT min 3V Accession Number(s): [id number] cc: Elizabeth Dean GARNETT FIXER; Sagrario Diane DPM Reason for Exam: M25.571 [...] 09/16/25 1532 DD/ 1341 TD/TT: 09/16/25 1526 Strategic Debriefing Specialist: [facility] [employer] [facility] [employer] External Provider IMG XR PROCEDURES Final Result * XR Hip 2 or 3 Views Left (09/16/2025 1:31 PM EST) Anatomical Region Laterality Modality Lower Extremities, Hip Left Radiograp hic Imaging 09/16/2025 1:31 PM EST Narrative 09/16/2025 3:36 PM EST [address] [address] XRay Report Signed Patient: Christie Ortiz MR#: [id number] [birth year] : 1975 Acct:[id number] Age/Sex: 50 / F ADM Date: 09/16/25 Loc: HO.HHCX Attending Dr: Tamar Sanchez MD Ordering Physician: Tamar Sanchez MD Date of Service: 09/16/25 Procedure(s): XR hip LT min 2V Accession Number(s): [id number] cc: Tamar Sanchez MD; Elizabeth Dean NP [...] OV> 09/16/25 1533 DD/ 1331 TD/TT: 09/16/25 1526 Strategic Debriefing Specialist: Procedure Note Donotuseinterpreter, Image - 09/16/[address] [address] XRay Report Signed Patient: Christie Ortiz [facility]#: [id number] 31 : 1975Acct:[id number] Age/Sex: 50 / FADM Date: 09/16/25 Loc: HO.HHCX Attending Dr: Tamar Sanchez MD Ordering Physician: Tamar Sanchez MD Date of Service: 09/16/25 Procedure(s): XR hip LT min 2V Accession Number(s): [id number] cc: Tamar Sanchez MD; Elizabeth Dean NP [...] Andrew Ma MDin OV> 09/16/25 1533 DD/ 1331 TD/TT: 09/16/25 1526 Strategic Debriefing Specialist: [facility] [employer] [facility] [employer] External Provider IMG XR PROCEDURES Final Result * XR Hip 2 or 3 Views Right (09/16/2025 1:30 PM EST) Anatomical Region Laterality Modality Lower Extremities, Hip Right Radiograp hic Imaging 09/16/2025 1:30 PM EST Narrative 09/16/2025 3:37 PM EST [address] [address] XRay Report Signed Patient: Christie Ortiz MR#: [id number] [birth year] : 1975 Acct:[id number] Age/Sex: 50 / F ADM Date: 09/16/25 Loc: HO.HHCX Attending Dr: Tamar Sanchez MD Ordering Physician: Tamar Sanchze MD Date of Service: 09/16/25 Procedure(s): XR hip RT min 2V Accession Number(s): [id number] cc: Tamar Sanchez MD; Elizabeth Dean NP [...] 09/16/25 1534 DD/ 1330 TD/TT: 09/16/25 1526 Strategic Debriefing Specialist: Procedure Note Donotuseinterpreter, Image - 09/16/[address] [address] XRay Report Signed Patient: Christie Ortiz NMR#: [id number] 31 : 1975Acct:[id number] Age/Sex: 50 / FADM Date: 09/16/25 Loc: ALBERT Attending Dr: Tamar Sanchez MD Ordering Physician: Tamar Sanchez MD Date of Service: 09/16/25 Procedure(s): XR hip RT min 2V Accession Number(s): [id number] cc: Tamar Sanchez MD; Elizabeth Dean NP [...] 09/16/25 1534 DD/ 1330 TD/TT: 09/16/25 1526 Strategic Debriefing Specialist: [facility] [employer] [facility] [employer] External Provider IMG XR PROCEDURES Final Result * XR Knee 3 Views Right (09/16/2025 1:28 PM EST) Anatomical Region Laterality Modality Lower Extremities, Knee Right [facility] 09/16/2025 1:28 PM EST Narrative 09/16/2025 3:51 PM EST [address] [address] XRay Report Signed Patient: Christie Ortiz MR#: [id number] [birth year] : 1975 Acct:[id number] Age/Sex: 50 / F ADM Date: 09/16/25 Loc: ALBERT Attending Dr: Tamar Sanchez MD Ordering Physician: Tamar Sanchez MD Date of Service: 09/16/25 Procedure(s): XR knee RT 3V Accession Number(s): [id number] cc: Tamar Sanchez MD; Elizabeth Dean GARNET[employer] FIXER Reason for Exam: M05.9 - Rheumatoid arthritis [...] by: Gricelda Shah MD 09/16/2025 03:48 PM [facility] Dictated By: Gricelda Shah MD Signed By: <Electronically signed by Gricelda Shah MD in OV> 09/16/25 1548 DD/ 1328 TD/TT: 09/16/25 1526 Strategic Debriefing Specialist: RUEL Procedure Note Donotuseinterpreter, Image - 09/16/2025 [place] [address] XRay Report Signed Patient: Christie Ortiz [facility]#: [id number] 31 : 1975Acct:[id number] Age/Sex: 50 / FADM Date: 09/16/25 Loc: GABYX Attending Dr: Tamar Sanchez MD Ordering Physician: Tamar Sanchez MD Date of Service: 09/16/25 Procedure(s): XR knee RT 3V Accession Number(s): [id number] cc: Tamar Sanchez MD; Elizabeth Dean GARNET[employer] FIXER Reason for Exam: M05.9 - Rheumatoid arthritis [...] 09/16/25 1548 DD/ 1328 TD/TT: 09/16/25 1526 Strategic Debriefing Specialist: RUEL [employer] [facility] [employer] External Provider IMG XR PROCEDURES Final Result * XR Wrist 3+ Views Right (09/16/2025 1:26 PM EST) Anatomical Region Laterality Modality Upper Extremities, Wrist Right Radiogr aphic Imaging 09/16/2025 1:26 PM EST Narrative 09/16/2025 3:51 PM EST [facility] [address] [place] [address] XRay Report Signed Patient: Christie Ortiz MR#: [id number] 31 : 1975 Acct:[id number] Age/Sex: 50 / F ADM Date: 09/16/25 Loc: HO.HHCX Attending Dr: Tamar Sanchez MD Ordering Physician: Tamar Sanchez MD Date of Service: 09/16/25 Procedure(s): XR wrist RT min 3V Accession Number(s): [id number] cc: Tamar Sanchez MD; Elizabeth Dean NP [...] 09/16/25 1549 DD/ 1326 TD/TT: 09/16/25 1526 Strategic Debriefing Specialist: WALTER Procedure Note Donotuseinterpreter, Image - 09/16/[address] [address] XRay Report Signed Patient: Christie Ortiz NMR#: [id number] 31 : 1975Acct:[id number] Age/Sex: 50 / FADM Date: 09/16/25 [facility]: Tamar Sanchez MD Ordering Physician: Tamar Sanchez MD Date of Service: 09/16/25 Procedure(s): XR wrist RT min 3V Accession Number(s): [id number] cc: Tamar Sanchez MD; Elizabeth Dean NP [...] 09/16/25 1549 DD/ 1326 TD/TT: 09/16/25 1526 Strategic Debriefing Specialist: WALTER [facility] [employer] [facility] [employer] External Provider IMG XR PROCEDURES Final Result * XR Hand 3+Views Bilateral (09/16/2025 1:22 PM EST) Anatomical Region Laterality Modality Upper Extremities, Hand Bilateral Radiogra phic Imaging 09/16/2025 1:22 PM EST Narrative 09/16/2025 3:48 PM EST [facility] [address] [place] [address] XRay Report Signed Patient: Christie Ortiz MR#: [id number] 31 : 1975 Acct:[id number] Age/Sex: 50 / F ADM Date: 09/16/25 Loc: HO.HHCX Attending Dr: Tamar Sanchez MD Ordering Physician: Tamar Sanchez MD Date of Service: 09/16/25 Procedure(s): XR Hand Bilat min 3v Accession Number(s): [id number] cc: Tamar Sanchez MD; Elizabeth Dean NP [...] 09/16/25 1545 DD/ 1322 TD/TT: 09/16/25 1526 Strategic Debriefing Specialist: Procedure Note Donotuseinterpreter, Image - 09/16/[address] [address] XRay Report Signed Patient: Christie Ortiz [facility]#: [id number] 31 : 1975Acct:[id number] Age/Sex: 50 / FADM Date: 09/16/25 Loc: HO.HHCX Attending Dr: Tamar Sanchez MD Ordering Physician: Tamar Sanchez MD Date of Service: 09/16/25 Procedure(s): XR Hand Bilat min 3v Accession Number(s): [id number] cc: Tamar Sanchez MD; Elizabeth Dean NP [...] Garcia Ortiz MD 09/16/2025 03:45 PM EST RP Dictated By: Garcia Ortiz MD Signed By: <Electronically signed by Garcia Ortiz MD in OV> 09/16/25 1545 DD/ 1322 TD/TT: 09/16/25 1526 Strategic Debriefing Specialist: [facility] [employer] External Provider IMG XR PROCEDURES Final Result * XR Knee 3 Views Left (09/16/2025 1:19 PM EST) Anatomical Region Laterality Modality Lower Extremities, Knee Left Radiogra phic Imaging 09/16/2025 1:19 PM EST Narrative 09/16/2025 3:52 PM EST [facility] [address] [place] [address] XRay Report Signed Patient: Christie Ortiz MR#: [id number] 31 : 1975 Acct:[id number] Age/Sex: 50 / F ADM Date: 09/16/25 Loc: HO.HHCX Attending Dr: Tamar Sanchez MD Ordering Physician: Tamar Sanchez MD Date of Service: 09/16/25 Procedure(s): XR knee LT 3V Accession Number(s): [id number] cc: Tamra Sanchez MD; Elizabeth Dean NP Reason for [...] Gricelda Shah MD 09/16/2025 03:50 PM EST RP Dictated By: Gricelda Shah MD Signed By: <Electronically signed by Gricelda Shah MD in OV> 09/16/25 1550 DD/ 1319 TD/TT: 09/16/25 1526 Strategic Debriefing Specialist: RUEL Procedure Note Donotuseinterpreter, Image - 09/16/2025 [facility] [address] [place] [address] XRay Report Signed Patient: Christie Ortiz NMR#: [id number] 31 : 1975Acct:[id number] Age/Sex: 50 / FADM Date: 09/16/25 Loc: HO.HHCX Attending Dr: Tamar Sanchez MD Ordering Physician: Tamar Sanchez MD Date of Service: 09/16/25 Procedure(s): XR knee LT 3V Accession Number(s): [id number] cc: Tamar Sanchez MD; Elizabeth Dean NP [...] 09/16/25 1550 DD/ 1319 TD/TT: 09/16/25 1526 Strategic Debriefing Specialist: RUEL [facility] [employer] [facility] External Provider IMG XR PROCEDURES Final Result * Hepatitis B, C Profile (09/16/2025 11:33 AM EST) ~Hepatitis B Surface Antibody REACTIVE Nonreactive [facility] Comment:REACTIVE: > 11.99 mI U/mL Hepatitis B Core Antibody Nonreactive Nonreactive [facility] Hepatitis C Antibody Nonreactive Nonreactive [facility] Comment:Antibodies to HCV no t detected; does not exclude early acuteHCV infection. Hepatitis B Surface Ag Negative Negative [facility] 09/16/2025 11:3 3 AM EST 09/16/2025 1:34 PM EST us Generic External Data Provider LAB BLOOD ORDERAB LES Final Result [facility] [address] [place] [phone] * T-SPOT??.TB (09/16/2025 11:33 AM EST) Pathologist [facility] T Spot TB Negative Negative [facility] Comment:A negative test resu lt does [...] as aquantitative test. TS PANEL A 2 [facility] TS PANEL B 4 [facility] Negative Control Passed [facility] Positive Control Passed [facility] Comment:For additional infor kristy, please refer [email or web address]/[email or web address](This link is being provided for informational/educational purposes only.)THIS TEST WAS PERFORMED AT:[employer] [id number] [place] [address]KLIBWSSKENDAL RON MD,PHD 09/16/2025 11:3 3 AM EST 09/16/2025 1:34 PM EST us Generic External Data Provider LAB BLOOD ORDERAB LES Final Result [facility] [address] [place] [phone] * (ABNORMAL) CBC auto differential (09/16/2025 11:33 AM EST) White Blood Count 4.3(L) 4.8 - 10.8 X10*3/uL [facility] Red Blood Count 4.32 4.20 - 5.50 X10*6/uL [facility] Hemoglobin 12.3 12.0 - 16.0 g/dl [facility] Hematocrit 38.8 37.0 - 47.0 % [facility] Mean Corpuscular Volume 89.8 80.0 - 98.0 fL [facility] Mean Corpuscular Hemoglobin 28.5 27.0 - 33.0 pg [facility] Mean Corpuscular HGB Conc 31.7 31.0 - 35.0 g/dl [facility] Red Cell Distribution Width 12.2 11.0 - 16.0 % [facility] Platelet Count 244 160 - 400 X10*3/uL [facility] Mean Platelet Volume 10.3 9.4 - 12.3 fL [facility] Neutrophils Percent Auto 65.2 45 - 73 % [facility] Imm Gran Pct Auto 0.2 0.0 - 0.4 % [facility] Lymphocytes Percent Auto 24.7 20 - 40 % [facility] Monocytes Percent Auto 7.4 2 - 11 % [facility] Eosinophils Percent Auto 2.3 0 - 4 % [facility] Basophils Percent Auto 0.2 0 - 2 % [facility] NRBC Pct Auto 0.0 0.0 - 0.2 /100WBC [facility] Neutrophils Absolute Auto 2.8 2.0 - 8.3 x10*3/uL [facility] Imm Gran Abs Auto 0.01 0.00 - 0.03 X10*3/uL [facility] Lymphocytes Absolute Auto 1.1(L) 1.2 - 4.9 X10*3/uL [facility] Monocytes Absolute Auto 0.3 0.1 - 1.2 X10*3/uL [facility] Eosinophils Absolute Auto 0.1 0.0 - 0.4 X10*3/uL [facility] Basophils Absolute Auto 0.0 0.0 - 0.2 X10*3/uL [facility] NRBC Abs Auto 0.000 0.0 - 0.012 X10*3/uL [facility] 09/16/2025 11:3 3 AM EST 09/16/2025 1:34 PM EST Generic External Data Provider LAB BLOOD ORDERAB LES Final Result Performing Organization Address [facility] Co de Phone Number [facility] [address] [place] [phone] * Cyclic Citrullinated Peptide (CCP) Antibody (IgG) (09/16/2025 11:33 AM EST) Pathologist [facility] Cyclic Citrullinated Peptide <16 UNITS [facility] Comment:Reference RangeNegat katelyn: <20Weak Positive: 20-39Moderate Positive: 40-59Strong Positive: >59THIS TEST WAS PERFORMED AT:[employer] [address] [id number] SENIOR MD 09/16/2025 11:3 3 AM EST 09/16/2025 1:34 PM EST Generic External Data Provider LAB BLOOD ORDERAB LES Final Result Performing Organization Address [facility] de Phone Number [facility] [address] [place] [phone] * Sed Rate by Chong Nina (09/16/2025 11:33 AM EST) Pathologist [facility] Erythrocyte Sedimentation Rate 20 0 - 20 MM/HR [facility] Comment:Patients with polycy themia and many hemoglobin abnormalitiesmay have depressed sed rates whereas patients with anemiamay have elevated sed rates. 09/16/2025 11:3 3 AM EST 09/16/2025 1:34 PM EST us Generic External Data Provider LAB BLOOD ORDERAB LES Final Result Performing Organization Address [facility] Co de Phone Number [facility] [address] [place] [phone] * (ABNORMAL) Rheumatoid Factor (09/16/2025 11:33 AM EST) Pathologist [facility] Rheumatoid Factor 64.8(H) <15.0 IU/mL [facility] 09/16/2025 11:3 3 AM EST 09/16/2025 1:34 PM EST us Generic External Data Provider LAB BLOOD ORDERAB LES Final Result Performing Organization Address [facility] Co de Phone Number [facility] [address] [place] [phone] * C-reactive Protein (09/16/2025 11:33 AM EST) [facility] C Reactive Protein 0.49 < or = 0.50 mg/dL [facility] 09/16/2025 11:3 3 AM EST 09/16/2025 1:34 PM EST Generic External Data Provider LAB BLOOD ORDERAB LES Final Result Performing Organization Address [facility] de Phone Number [facility] [address] [place] [phone] * (ABNORMAL) Comprehensive Metabolic Panel (09/16/2025 11:33 AM EST) Only the most recent of2 resultswithin the time period is included. Pathologist [facility] Sodium 137 135 - 145 mmol/L [facility] Potassium 4.3 3.3 - 5.1 mmol/L [facility] Chloride 103 96 - 108 mmol/L [facility] Carbon Dioxide 27 22 - 29 mmol/L [facility] Anion Gap 11(L) 12 - 20 [facility] Urea Nitrogen (BUN) 19(H) 9 - 16 mg/dL [facility] Creatinine, Serum 0.69 0.5 - 1.4 mg/dL [facility] Estimated Glomerular Filt Rate >60 [facility] Comment:Chronic Kidney Disea se: Estimated GFR < 60 mL/min/1.90g0Ojddli Kidney Disease: Estimated GFR < 15 mL/min/1.73m2 Glucose 88 60 - 115 mg/dL [facility] Calcium 9.0 8.4 - 10.2 mg/dL [facility] Bilirubin, Total 0.2 0.0 - 1.0 mg/dL [facility] Aspartate Amino Transferase 45(H) 5 - 31 U/L [facility] Alanine Aminotransferase 15 0 - 31 U/L [facility] Total Protein 7.6 6.5 - 8.0 g/dL [facility] Albumin Level 4.4 3.5 - 5.0 g/dL [facility] Alkaline Phosphatase 131(H) 39 - 117 U/L [facility] 09/16/2025 11:3 3 AM EST 09/16/2025 1:34 PM EST us Generic External Data Provider LAB BLOOD ORDERAB LES Final Result [facility] [address] [place] [phone] * Hemoglobin A1c (08/27/2025 10:10 AM EDT) Hemoglobin A1c 5.5 <6.0 % [facility] Comment:Hemoglobin A1C Refer ence Range Adults: 4.8 - 6.0 % Non diabetic: < 6.0 % Goal: < 7.0 %Additional Action Suggested: > 8.0 %Note: Hemoglobin A1c results are invalid for patients with abnormal amounts of HbF. Blood transfusions may impact the HbA1c concentration in the patient sample. Estimated Average Glucose 111 mg/dL [facility] Comment:eAG = Estimated ave rage glucose which is %A1C expressed asaverage glucose, using the formula of the F8Y-UrgavdeYlovxld Glucose study (ADAG), Diabetes Care, Vol.31,#8,2007 Blood Venous blood specimen / Unknown 08/27/2025 10:10 AM EDT 08/27/2025 11:26 AM EDT us Elizabeth Dean NP LAB BLOOD ORDERABLES Final Resul t [facility] [address] [place] [phone] * (ABNORMAL) POCT PERLA-14 Urine Drug [...] PM EDT) HPV High Risk Negative Negative [facility] HPV Genotype 16 Negative Negative [facility] HPV Genotype 18 Negative Negative [facility] Comment:HPV testing performe d at [facility] (CLIA#[id number]), [address] [place] [address].Testing for HPV was performed using the Osorio [...] NP LAB BLOOD ORDERABLES Final Resul t [facility] [address] [place] [phone] * Pap Smear (06/10/2025 1:25 PM EDT) Swab Cervix uteri structure / Unknown 06/10/2025 1:25 PM EDT 06/11/2025 8:30 AM EDT Narrative [facility] - 06/17/2025 8:19 AM EDT ----- ------- Name: Christie Ortiz Age/Sex: 49/F : 1975 Unit#: [id number] Attend Dr: Elizabeth Dean NP Re06/10/25 Status: DEP [facility]F [facility] Disch: ----- ------- SPEC : [id number] RECD: 06/11/25 STATUS: SUMMER GARCIA NUM: [id number] RADHA: 06/10/[address] [facility] [address]: Elizabeth Dean GARNETT FIXER ENTERED: 06/11/25 SP TYPE: Pap Smr [facility] DR: ORDERED: Pap Smear Interpretation Satisfactory for [...] and HPV testing will be performed at [facility] (CLIA #[id number]), [address] [place] [address]. Testing for HPV was performed using the [...] detected. All professional services are performed by [facility] ([address] [place] [phone]; ; CLIA #[id number]). The PAP Test is a screening procedure with the inherent possibility of both false negative and false positive results. Results should be interpreted in the context of historic and current clinical findings. Reliability of the PAP Test is enhanced by performing the test on a regular repetitive basis. ----- ------- Signed (signature on file) CORDELIA Frederick ([facility]) 06/17/25 0819 ----- ------- END OF REPORT us Elizabeth Dean NP LAB CYTOLOGY ORDERABLES Final Re sult [facility] [address] [place] [phone] * HIV-1/2 Antigen and Antibodies, Fourth Generation, with Reflexes (03/04/2025 10:16 AM EDT) [facility] HIV AB/AG Nonreactive Nonreactive [facility] Comment:HIV-1 p24 Ag and/or HIV-1/HIV-2 Ab not detected.A test result that is nonreactive does not exclude thepossibility of exposure to or infection with HIV-1 and/orHIV-2. Nonreactive results in this assay for individualswith prior exposure to HIV-1 and/or HIV-2 may be due toantigen and antibody levels that are below the limit ofdetection of this assay.The [employer] HIV Ag/Ab Combo assay result andsupplemental assay results should be interpreted inconjunction with the patient's clinical presentation,history and other laboratory results. If the results areinconsistent with clinical evidence, additional testing issuggested to confirm the result. Blood Venous blood specimen / Unknown 03/04/2025 10:16 AM EDT 03/04/2025 11:22 AM EDT us Torres Morillo MD LAB BLOOD ORDERABLES Final Resul t Performing Organization Address City/[facility]/ZIP Co de Phone Number [facility] [address] [place] [phone] * Lipid Panel, Standard (03/01/2023 11:10 AM EDT) Cholesterol, Total 159 <200 mg/dL [facility] HDL Cholesterol 79 > OR = 50 mg/dL [facility] Triglycerides 44 <150 mg/dL [facility] LDL Cholesterol 67 mg/dL (calc) [facility] Comment: Reference range: <100 Desirable range <100 mg/dL for primary prevention; <70 mg/dL for patients with CHD or diabetic patients with > or = 2 CHD risk factors. LDL-C is now calculated using the Rayray-Champ calculation, which is a validated novel method providing better accuracy than the Friedewald equation in the estimation of LDL-C. Rayray SS et al. GUILLAUME. 2013;310(19): 7104-1282 (http://education.Movinto Fun.Ausra/faq/XJX611) Chol/HDLC Ratio 2.0 <5.0 (calc) [employer] Non-HDL Cholesterol 80 <130 mg/dL (calc) [employer] Comment: For patients with diabetes plus 1 major ASCVD risk factor, treating to a non-HDL-C goal of <100 mg/dL (LDL-C of <70 mg/dL) is considered a therapeutic option. Blood Venous blood specimen / Unknown 03/01/2023 11:10 AM EDT 03/01/2023 11:11 AM EDT Narrative [facility] - 03/04/2023 6:21 AM EDT FASTING:NO FASTING: NO us Kyra Doyle MD LAB BLOOD ORDERABLES Final Result [facility] [address], [place] [address] [facility] [address] [place] [address] * Mammography Report 1 (09/16/2022 1:32 PM [...] Relevant to Health Maintenance Insurance [facility] [employer] Care Teams Funds Development Director Relationship Specialty Start Date End Date Elizabeth Dean NP [address] [place] [address] PCP - General Family Medicine 02/25/25
== END 2025-10-01 11:20 | disposition home or self-care (01) ==
LOC: HO.HHCX 11:19
PROVIDERS: PCP Nurse Practitioner Family; Visit Provider Student in an Organized Health Care Education/Training Program
DX: M05.9 Rheumatoid arthritis with rheumatoid factor, unspecified (principal)
CPT/HCPCS: 72052; 72202

== ENCOUNTER → 2025-10-01 11:25 | Outpatient (BNV) | payer MEDICARE, MEDICAID, SELFPAY | PROVIDERS: PCP Nurse Practitioner Family; Visit Provider Radiology Diagnostic Radiology | DX: M05.9 Rheumatoid arthritis with rheumatoid factor, unspecified (principal); M50.321 Other cervical disc degeneration at C4-C5 level; M43.12 Spondylolisthesis, cervical region | CPT/HCPCS: 72052; 72202 ==

== ENCOUNTER 2025-10-06 15:17 | Outpatient (AMB) | payer MEDICARE, MEDICAID, SELFPAY ==
[2025-10-06 15:34] VITALS: BMI 37.2
--- NOTE | 2025-10-06 15:34 | A.OFFVIS_ITS ---
Vital Signs 10/06/25 15:34 Height 5 ft 3 in Weight 210 lb BMI 37.2 Intake Visit Reasons: f/u xrays; chronic right ankle instability Intake Note: Christie is a 50 year old female who presents today for a follow up on her right ankle instability and X-rays. At her last visit X-rays were ordered and she was provided with a lace up ankle brace. Patient reports she is still experiencing pain and swelling in her right ankle and hasn't seen any improvement since her last visit. Ankle X-ray IMPRESSION: Mild degenerative change in the medial ankle joint, similar to the prior. Allergies latex (LATEX) Allergy (Intermediate, Verified 10/06/25 15:35) RASH ENVIROMENTAL Allergy (Intermediate, Uncoded 09/23/25 13:49) HAYFEVER Food Allergy Formula Allergy (Unknown, Uncoded 09/23/25 13:49) Anaphylaxis Onions Allergy (Unknown, Uncoded 09/23/25 13:49) Anaphylaxis seasonal allergies Allergy (Unknown, Uncoded 09/23/25 13:49) Difficulty Breathing shellfish Allergy (Unknown, Uncoded 09/23/25 13:49) Anaphylaxis HPI Comments Details: The patient is a 50 year old individual presenting for follow-up of chronic right ankle instability. The patient reports ongoing pain on the lateral aspect of the ankle, which continues despite using an ankle brace that provides minimal relief. Recent x-rays were negative for any fractures but revealed the presence of an accessory bone or bone spur, which can be the result of a previous ankle sprain. The patient has not yet started physical therapy as recommended previously. Patient states she has been taking Tylenol prn with mild relief. She denies any new pedal injuries. Denies any other pedal concerns. [facility] Medical History (Updated 09/10/25 @ 14:53 by Sagrario Diane DPM) Chronic instability of ankle Right ankle pain Hypoglycemia Panniculitis Nausea Cellulitis Postoperative nausea and vomiting Migraine History of irregular heartbeat History of opioid abuse History of schizophrenia History of bipolar disorder History of seizures Sprain of ankle, right Obstructive sleep apnea Elevated cortisol level Hypoglycemia Epigastric abdominal pain Asthma Anemia Fibromyalgia Depression Hypertension Kidney calculi Carpal tunnel syndrome on both sides Surgical History S/P panniculectomy S/P thighplasty S/P brachioplasty History of back surgery History of endometrial ablation History of blepharoplasty H/O esophagogastroduodenoscopy H/O colonoscopy H/O section History of knee surgery H/O tubal ligation H/O hemorrhoidectomy H/O abdominoplasty History of bilateral breast reduction surgery H/O gastric bypass Family History Father Diabetes HTN (hypertension) Cancer Heart disease Mother Cancer Diabetes HTN (hypertension) Social History Household Members: Children Household Members Other:: daughter Are you a primary career transition specialist to a significant other at home: No Do you presently have visiting nurse or other home services: Yes ([employer] WORK[employer]) Alcohol intake: never Patient Tobacco Use Status: Never used Tobacco Substance Use Type: Marijuana service: No Current occupational status: retired Current occupation: [employer] Review of Systems Const Details: - Musculoskeletal: Reports persistent right ankle pain. All systems reviewed & are unremarkable except as noted in HPI and below Physical Exam Vital Signs: BMI result Body Mass Index 37.2 Extrem Other: Right lower extremity focused physical exam: Derm: No open lesions abrasions or wounds noted. No ecchymosis or discoloration noted. No maceration or clinical signs of infection noted. Skin supple and turgor within normal limits. Vascular: DP/PT pulses palpable. Capillary refill time less than 3 seconds. Temperature gradient warm to warm. Pedal hair absent. No varicosities noted. Mild edema noted to the ankle. Neuro: Protective sensation is grossly intact. MSK: Pain on palpation to the ankle mostly to the lateral aspect of the ankle in the lateral gutter along the course of the ATFL , PTFL, and CFL. Mild Pain on palpation along the deltoid ligaments in medial gutter. Positive anterior drawer test. Range of motion of the ankle noted to be painful and limited due to guarding from pain. MMT 4/5. Range of motion of the forefoot and hindfoot within normal limits. No crepitus noted. Antalgic gait noted. Results Reviewed Results Reviewed: Podiatry Read of Right ankle xrays (09/16/25): Ossicle noted to the distal tip of the medial malleolus. Osteophytes noted to the midfoot. Plantar calcaneal spur noted. No acute fractures or dislocations. Right ankle xrays (09/16/25): FINDINGS: Ankle mortise is congruent. There is no widening of the syndesmosis. Talar dome is intact. There is a calcaneal enthesophyte(s). Marginal osteophyte is present at the medial malleolar tip, similar to the prior. IMPRESSION: Mild degenerative change in the medial ankle joint, similar to the prior. Assessment & Plan Assessment & Plan (1) Fibromyalgia: Code(s): M79.7 - Fibromyalgia Category: Medical (2) Sprain of ankle, right: Code(s): S93.401A - Sprain of unspecified ligament of right ankle, initial encounter Category: Medical Qualifiers: Encounter type: initial encounter Involved ligament of ankle: unspecified ligament Qualified Code(s): S93.401A - Sprain of unspecified ligament of right ankle, initial encounter (3) Right ankle pain: Code(s): M25.571 - Pain in right ankle and joints of right foot Category: Medical Qualifiers: Chronicity: chronic Qualified Code(s): M25.571 - Pain in right ankle and joints of right foot; G89.29 - Other chronic pain (4) Chronic instability of ankle: Code(s): M25.373 - Other instability, unspecified ankle Category: Medical Plan Patient was informed and verbally consented to the use of an ambient scribe for clinic note documentation during this visit. I discussed with the patient that the persistent ankle pain is likely related to ligament strain, as X-rays were negative for a fracture but did show a bone spur, possibly from a prior sprain. I explained that starting physical therapy is the necessary next step to strengthen the ligaments. I informed the patient that I was prescribing a lidocaine patch due to various medications having an interaction with the patient's current medication, methotrexate. We discussed that if pain persists, a cortisone injection directly into the ankle would be the next steps. I advised the patient to return for a follow-up visit in three weeks to reassess the condition and consider an injection at that time if needed. - Prescribed Lidocaine patches. - Provided patient with a CAMboot to the RLE. - Patient may be WBAT in the CAMboot. - Provided patient on information on how to schedule PT sessions. - If pain persists, will consider cortisone injection and MRI. - Continue taking Tylenol prn for pain. - Advised patient to avoid barefoot walking and to wear supportive shoe gear. - Adhere to RICE protocol. RTC in 3 weeks. Medications: New lidocaine 5% leave on most painful area for up to 12 hrs 1 patch topical BID 30 ea 0RF G89.29 - Other chronic pain, M25.373 - Other instability, unspecified ankle, M25.571 - Pain in right ankle and joints of right foot, M79.7 - Fibromyalgia, S 93.401A - Sprain of unspecified ligament of right ankle, initial encounter Coding Level of Care Code Est Pt Level 4 (71291) Diagnoses Fibromyalgia M79.7 Sprain of right ankle, unspecified ligament, initial encounter S93.401A Encounter type: initial encounter Involved ligament of ankle: unspecified ligament Chronic pain of right ankle M25.571; G89.29 Chronicity: chronic Chronic instability of ankle M25.373 Time Spent (min) 32
--- OUTSIDE RECORDS SUMMARY | 2025-10-06 18:20 | XMS_ITS | Encounter Summary ---
Author Organization [employer] Address [address] [facility] 7t [place] [address] Care Team Providers Care Game And Fish Protector Name Role Phone Kyra Driscoll MD Primary Care Provide r Elizabeth Dean NP Primary Care Provider [phone] Reason for Visit * Reason Comments Med Refill Encounter Details Date Type Department Care Team (Late st Contact Info) Description 05/23/2023 Refill [facility] CHC MED & PEDS [address] [place], [place] [phone] Kyra Driscoll MD [address] [place], [place] [phone] Social History Tobacco Use Types Packs/Day Years [...] Description 10/21/2025 1:00 PM EST Medication Management [facility] MEDICINE 230 [place], [place] [phone] Juni Haji, PharmD [address] [place], [place] [phone] 11/04/2025 1:45 PM EST Office Visit [address] [address] Elizabeth Dean NP [address] [place] [address] 11/11/2025 9:30 AM EST Clinical Support [address] [address] Julia Lu RN documented as of this encounter Visit Diagnoses Not on filedocumented in this encounter Care Teams Game And Fish Protector Relationship Specialty Start Date End Date Kyra Driscoll MD [address] [place] [address] PCP - General Family Medicine 06/03/19 03/03/24 Elizabeth Dean NP [address] [place] [address] PCP - General Family Medicine 02/25/25 documented as of this encounter
--- OUTSIDE RECORDS SUMMARY | 2025-10-06 18:20 | XMS_ITS | Encounter Summary ---
Author Organization [employer] Address [address] [place] [address] 7t [place] [address] Care Team Providers Care English Language Arts Teacher Name Role Phone Kyra Driscoll MD Primary Care Provide r Elizabeth Dean NP Primary Care Provider [phone] Reason for Visit * Reason Comments Med Refill Encounter Details Date Type Department Care Team (Late st Contact Info) Description 05/23/2023 Refill [facility] MEDICINE 230 [place], [place] [phone] Nurys Mcdonnell MD 230 [place], [place] [phone] COPD (chronic obstructive pulmonary disease) with chronic bronchitis ([facility]/HCC) Social History Tobacco Use Types Packs/Day [...] Description 10/21/2025 1:00 PM EST Medication Management [facility] MEDICINE [address] [place], [place] [phone] Juni Haji, HennyD 230 [place], [place] [phone] 11/04/2025 1:45 PM EST Office Visit [address] [address] Elizabeth Dean NP [address] [place] [address] 11/11/2025 9:30 AM EST Clinical Support [address] [address] Julia Lu RN documented as of this encounter Visit Diagnoses Diagnosis COPD (chronic obstructive pulmonary disease) with chronic bronchitis (CMS/HCC) (HCC) documented in this encounter Care Teams English Language Arts Teacher Relationship Specialty Start Date End Date Kyra Driscoll MD [address] [place] [address] PCP - General Family Medicine 06/03/19 03/03/24 Elizabeth Dean NP [address] [place] [address] PCP - General Family Medicine 02/25/25 documented as of this encounter
--- OUTSIDE RECORDS SUMMARY | 2025-10-06 18:20 | XMS_ITS | Encounter Summary ---
Author Organization [employer] Address [address] [facility] 7t [place] [address] Care Team Providers Care Faculty Instructor Name Role Phone Elizabeth Dean NP Primary Care Provider [phone] Reason for Visit * Reason Onset Date Comments Med Refill 10/01/2025 Encounter Details Date Type Department Care Team ([facility] st Contact Info) Description 10/01/2025 Telephone [facility] MEDICINE 230 [place], [place] [phone] Elizabeth Dean NP 230 [place] [address] Med Refill Social History Tobacco Use Types [...] Description 10/21/2025 1:00 PM EST Medication Management [address] [address] Juni Haji, HennyD [address] [place] [address] 11/04/2025 1:45 PM EST Office Visit [address] [address] Elizabeth Dean NP [address] [place] [address] 11/11/2025 9:30 AM EST Clinical Support [address] [address] Julia Lu RN documented as of this encounter Visit Diagnoses Not on filedocumented in this encounter Additional Health Concerns Assessment Noted Time PHQ-9 Depression Total Score: 20 025 7:51 AM EDT documented as of this encounter Care Teams Faculty Instructor Relationship Specialty Start Date End Date Elizabeth Dean NP [address] [place] [address] PCP - General Family Medicine 02/25/25 documented as of this encounter
--- OUTSIDE RECORDS SUMMARY | 2025-10-06 18:20 | XMS_ITS | Encounter Summary ---
Author Organization [employer] Address [address] [facility] 7t [place] [address] Care Team Providers Care Food Science Professor Name Role Phone Kyra Driscoll MD Primary Care Provide r Elizabeth Dean NP Primary Care Provider [phone] Reason for Visit * Reason Comments Med Refill Encounter Details Date Type Department Care Team (Late st Contact Info) Description 06/13/2023 Refill [facility] MEDICINE 230 [place], [place] [phone] Porfirio Saldivar MD 230 [place], [place] [phone] Uncomplicated opioid dependence (CMS/HCC) Social History Tobacco [...] Description 10/21/2025 1:00 PM EST Medication Management [facility] MEDICINE 230 [place], [place] [phone] Juni Haji, PharmD 230 [place], [place] [phone] 11/04/2025 1:45 PM EST Office Visit [address] [address] Elizabeth Dean NP [address] [place] [address] 11/11/2025 9:30 AM EST Clinical Support [address] [address] Julia Lu RN documented as of this encounter Visit Diagnoses Diagnosis Uncomplicated opioid dependence (CMS/HCC) (HCC) documented in this encounter Care Teams Food Science Professor Relationship Specialty Start Date End Date Kyra Driscoll MD [address] [place] [address] PCP - General Family Medicine 06/03/19 03/03/24 Elizabeth Dean NP [address] [place] [address] PCP - General Family Medicine 02/25/25 documented as of this encounter
--- OUTSIDE RECORDS SUMMARY | 2025-10-06 18:20 | XMS_ITS | Encounter Summary ---
Author Organization [employer] Address [address] [place] [address] 7t [place] [address] Care Team Providers Care Chief Console Operator Name Role Phone Kyra Driscoll MD Primary Care Provide r Elizabeth Dean NP Primary Care Provider [phone] Encounter Details Date Type Department Care Team (Late st Contact Info) Description 09/26/2022 Abstract [facility] MEDICINE [address] [place] [address] [phone] Kyra Driscoll MD [address] [place] [address] [phone] Social History Tobacco Use Types Packs/Day Years [...] Description 10/21/2025 1:00 PM EST Medication Management [address] [address] Juni Haji, PharmD [address] [place] [address] 11/04/2025 1:45 PM EST Office Visit [facility] MEDICINE [address] [place] [address] Elizabeth Dean NP 230 [place] [address] 11/11/2025 9:30 AM EST Clinical Support [facility] MEDICINE 230 [place] [address] Julia Lu, BEN documented as of this encounter Visit Diagnoses Not on filedocumented in this encounter Care Teams Chief Console Operator Relationship Specialty Start Date End Date Kyra Driscoll MD 230 [place] [address] PCP - General Family Medicine 06/03/19 03/03/24 Elizabeth Dean NP 230 [place] [address] PCP - General Family Medicine 02/25/25 documented as of this encounter
--- OUTSIDE RECORDS SUMMARY | 2025-10-06 18:20 | XMS_ITS | Encounter Summary ---
Author Organization [email or web address] Address [address] [place] [address] 7t [place] [address] Care Team Providers Care Patient Care Coordinator Name Role Phone Kyra Driscoll MD Primary Care Provide r Elizabeth Dean NP Primary Care Provider [phone] Reason for Visit * Reason Comments Med Refill Encounter Details Date Type Department Care Team (Late st Contact Info) Description 06/16/2023 Refill [facility] MEDICINE 230 [place], [place] [phone] Kyra Driscoll MD 230 [place], [place] [phone] Other muscle spasm Social History Tobacco Use [...] Description 10/21/2025 1:00 PM EST Medication Management [facility] MEDICINE 230 [place], [place] [phone] Juni Haji, PharmD 230 [place], [place] [phone] 11/04/2025 1:45 PM EST Office Visit [address] [address] Elizabeth Dean [place] [address] 11/11/2025 9:30 AM EST Clinical Support [address] [address] Julia Lu RN documented as of this encounter Visit Diagnoses Diagnosis Other muscle spasm documented in this encounter Care Teams Patient Care Coordinator Relationship Specialty Start Date End Date Kyra Driscoll MD [address] [place] [address] PCP - General Family Medicine 06/03/19 03/03/24 Elizabeth Dean NP [address] [place] [address] PCP - General Family Medicine 02/25/25 documented as of this encounter
--- OUTSIDE RECORDS SUMMARY | 2025-10-06 18:20 | XMS_ITS | Encounter Summary ---
Author Organization [employer] Address [address] [facility] 7t [place] [address] Care Team Providers Care Metal Fabricating Supervisor Name Role Phone Kyra Driscoll MD Primary Care Provide r Elizabeth Dean NP Primary Care Provider [phone] Reason for Visit * Reason Comments Med Refill Encounter Details Date Type Department Care Team (Late st Contact Info) Description 06/07/2023 Refill [facility] CHC MED & PEDS [address] [place], [place] [phone] Kyra Driscoll MD 230 [place], [place] [phone] Chronic nausea; Allergy, subsequent encounter Social History [...] Description 10/21/2025 1:00 PM EST Medication Management [facility] MEDICINE 230 [place], [place] [phone] Juni Haji, PharmD 230 [place], [place] [phone] 11/04/2025 1:45 PM EST Office Visit [address] [address] Elizabeth Dean NP [address] [place] [address] 11/11/2025 9:30 AM EST Clinical Support [address] [address] Julia Lu RN documented as of this encounter Visit Diagnoses Diagnosis Chronic nausea Nausea alone Allergy, subsequent encounter documented in this encounter Care Teams Metal Fabricating Supervisor Relationship Specialty Start Date End Date Kyra Driscoll MD [address] [place] [address] PCP - General Family Medicine 06/03/19 03/03/24 Elizabeth Dean NP [address] [place] [address] PCP - General Family Medicine 02/25/25 documented as of this encounter
--- OUTSIDE RECORDS SUMMARY | 2025-10-06 18:20 | XMS_ITS | Encounter Summary ---
Author Organization [employer] Address [address] [facility] 7t [place] [address] Care Team Providers Care Plastic Jig And Fixture Builder Name Role Phone Kyra Driscoll MD Primary Care Provide r Elizabeth Dean NP Primary Care Provider [phone] Reason for Visit * Reason Comments Med Refill Encounter Details Date Type Department Care Team ([facility] Contact Info) Description 04/22/2023 Refill [facility] MEDICINE 230 [place], [place] [phone] Kyra Driscoll MD 230 [place], [place] [phone] Moderate persistent asthma without complication Social History [...] Upcoming Encounters Date Type Department Care Team ([facility] Contact Info) Description 10/21/2025 1:00 PM EST Medication Management [address] [address] Juni Haji, HennyD [address] [place] [address] 11/04/2025 1:45 PM EST Office Visit [address] [address] Elizabeth Dean NP [address] [place] [address] 11/11/2025 9:30 AM EST Clinical Support [address] [address] Julia Lu RN documented as of this encounter Visit Diagnoses Diagnosis Moderate persistent asthma without complication documented in this encounter Care Teams Plastic Jig And Fixture Builder Relationship Specialty Start Date End Date Kyra Driscoll MD [address] [place] [address] PCP - General Family Medicine 06/03/19 03/03/24 Elizabeth Dean NP [address] [place] [address] PCP - General Family Medicine 02/25/25 documented as of this encounter
--- OUTSIDE RECORDS SUMMARY | 2025-10-06 18:20 | XMS_ITS | Encounter Summary ---
Author Organization [employer] Address 75 [facility] 7t [place] [address] Care Team Providers Care Data Integrity Consultant Name Role Phone Kyra Driscoll MD Primary Care Provide r Elizabeth Dean NP Primary Care Provider Reason for Visit * Reason Comments Med Refill Encounter Details Date Type Department Care Team (Late Contact Info) Description 03/10/[address] [facility] MEDICINE 230 [place], [place] [phone] Nurys Mcdonnell MD 230 [place], [place] [phone] Allergy, subsequent encounter Social History Tobacco Use [...] Encounters Date Type Department Care Team ([facility] Contact Info) Description 10/21/2025 1:00 PM EST Medication Management [address] [address] Juni Haji, PharmD 230 [place] [address] 11/04/2025 1:45 PM EST Office Visit [address] [address] Elizabeth Dean NP [address] [place] [address] 11/11/2025 9:30 AM EST Clinical Support [address] [address] Julia Lu RN documented as of this encounter Visit Diagnoses Diagnosis Allergy, subsequent encounter documented in this encounter Care Teams Data Integrity Consultant Relationship Specialty Start Date End Date Kyra Driscoll MD [address] [place] [address] PCP - General Family Medicine 06/03/19 03/03/24 Elizabeth Dean NP [address] [place] [address] [phone] PCP - General Family Medicine 02/25/25 documented as of this encounter
--- OUTSIDE RECORDS SUMMARY | 2025-10-06 18:20 | XMS_ITS | Encounter Summary ---
Author Organization [employer] Address 75 [facility] 7t [place] [address] Care Team Providers Care Reinforced Steel Placing Supervisor Name Role Phone Elizabeth Dean NP Primary Care Provider [phone] Reason for Visit * Reason Comments Med Refill Encounter Details Date Type Department Care Team ([facility] st Contact Info) Description 08/11/2025 Refill [facility] MEDICINE 230 [place], [place] [phone] Elizabeth Dean NP 230 [place], [place] [phone] Moderate persistent asthma without complication Social History [...] Description 10/21/2025 1:00 PM EST Medication Management [address] [address] Juni Haji, HennyD [address] [place] [address] 11/04/2025 1:45 PM EST Office Visit [address] [address] Elizabeth Dean NP [address] [place] [address] 11/11/2025 9:30 AM EST Clinical Support [address] [address] Julia Lu, BEN documented as of this encounter Visit Diagnoses Diagnosis Moderate persistent asthma without complication documented in this encounter Additional Health Concerns Assessment Noted Time PHQ-9 Depression Total Score: 20 025 7:51 AM EDT documented as of this encounter Care Teams Reinforced Steel Placing Supervisor Relationship Specialty Start Date End Date Elizabeth Dean NP [address] [place] [address] PCP - General Family Medicine 02/25/25 documented as of this encounter
--- OUTSIDE RECORDS SUMMARY | 2025-10-06 18:20 | XMS_ITS | Encounter Summary ---
Author Organization [employer] Address 75 [facility] 7t [place] [address] Care Team Providers Care Senior Payroll Specialist Name Role Phone Kyra Driscoll MD Primary Care Provide r Elizabeth Dean NP Primary Care Provider [phone] Reason for Visit * Reason Comments Med Refill Encounter Details Date Type Department Care Team (Late Contact Info) Description 06/07/2023 Refill [facility] MEDICINE 230 [place], [place] [phone] Rachel Cash FNP 505 [place], [place] [phone] Allergy, subsequent encounter Social History Tobacco Use [...] 1:00 PM EST Medication Management [facility] 230 [place], [place] [phone] Juni Haji, PharmD 230 [place], [place] [phone] 11/04/2025 1:45 PM EST Office Visit [address] [address] Elizabeth Dean NP [address] [place] [address] 11/11/2025 9:30 AM EST Clinical Support [address] [phone] Julia Lu RN documented as of this encounter Visit Diagnoses Diagnosis Allergy, subsequent encounter documented in this encounter Care Teams Senior Payroll Specialist Relationship Specialty Start Date End Date Kyra Driscoll MD [address] [place] [address] PCP - General Family Medicine 06/03/19 03/03/24 Elizabeth Dean NP [address] [place] [address] PCP - General Family Medicine 02/25/25 documented as of this encounter
--- OUTSIDE RECORDS SUMMARY | 2025-10-06 18:20 | XMS_ITS | Encounter Summary ---
Author Organization [employer] Address 75 [facility] 7t [place] [address] Care Team Providers Care Software Tools Engineer Name Role Phone Kyra Driscoll MD Primary Care Provide r Elizabeth Daen NP Primary Care Provider [phone] Reason for Visit * Reason Comments Med Refill Encounter Details Date Type Department Care Team (Late Contact Info) Description 03/15/2023 Refill [facility] MED & PEDS 505 [place], [place] [phone] Nurys Mcdonnell MD 230 [place] [address] Other migraine without status migrainosus, not intractable [...] Encounters Date Type Department Care Team ([facility] Contact Info) Description 10/21/2025 1:00 PM EST Medication Management [address] [address] Juni Haji, HennyD [address] [place] [address] 11/04/2025 1:45 PM EST Office Visit [address] [address] Elizabeth Dean NP [address] [place] [address] 11/11/2025 9:30 AM EST Clinical Support [address] [address] Julia Lu RN documented as of this encounter Visit Diagnoses Diagnosis Other migraine without status migrainosus, not intractable documented in this encounter Care Teams Software Tools Engineer Relationship Specialty Start Date End Date Kyra Driscoll MD [address] [place] [address] PCP - General Family Medicine 06/03/19 03/03/24 Elizabeth Dean NP [address] [place] [address] PCP - General Family Medicine 02/25/25 documented as of this encounter
--- OUTSIDE RECORDS SUMMARY | 2025-10-06 18:20 | XMS_ITS | Encounter Summary ---
Author Organization [employer] Address 75 [facility] 7t [place] [address] Care Team Providers Care Field Sales Specialist Name Role Phone Kyra Driscoll MD Primary Care Provide r Elizabeth Dean NP Primary Care Provider Reason for Visit * Reason Comments Med Refill Encounter Details Date Type Department Care Team ([facility] Contact Info) Description 04/24/2023 Refill [facility] MEDICINE 230 [place], [place] [phone] Kyra Driscoll MD 230 [place], [place] [phone] Allergy, subsequent encounter Social History Tobacco Use [...] Upcoming Encounters Date Type Department Care Team ([facility] Contact Info) Description 10/21/2025 1:00 PM EST Medication Management [address] [address] Juni Haji, HennyD [address] [place] [address] 11/04/2025 1:45 PM EST Office Visit [address] [address] Elizabeth Dean NP [address] [place] [address] 11/11/2025 9:30 AM EST Clinical Support [address] [address] Julia Lu RN documented as of this encounter Visit Diagnoses Diagnosis Allergy, subsequent encounter documented in this encounter Care Teams Field Sales Specialist Relationship Specialty Start Date End Date Kyra Driscoll MD [address] [place] [address] PCP - General Family Medicine 06/03/19 03/03/24 Elizabeth Dean NP [address] [place] [address] PCP - General Family Medicine 02/25/25 documented as of this encounter
--- OUTSIDE RECORDS SUMMARY | 2025-10-06 18:21 | XMS_ITS | Encounter Summary ---
Author Organization [facility] Address [address] [facility] [address] [place] [address] Phone Care Team Providers Care Adjunct Professor Of Voice Name Role Phone Nohemi Nunez DO Primary Care Provider Encounter Details Date Type Department Care Team (Late st Contact Info) Description 01/15/2018 Ancillary Orders [facility] [address] [place] [address] [place], [place] [phone] Kyle Lundberg DO [address] [place] [address] Tachycardia Social History Tobacco Use Types Packs/Day [...] tachycardia documented in this encounter Care Teams Adjunct Professor Of Voice Relationship Specialty Start Date End Date Nohemi Nunez DO [address] [place] [address] PCP - General 11/09/17 documented as of this encounter Additional Source Comments The information contained in this document represents components of the legal health record. It is not the complete legal health record.[facility]
--- OUTSIDE RECORDS SUMMARY | 2025-10-06 18:21 | XMS_ITS | Encounter Summary ---
Author Organization [employer] Address 75 [facility] 7t [place] [address] Care Team Providers Care Poly Packer And Heat Sealer Name Role Phone Elizabeth Dean NP Primary Care Provider [phone] Reason for Visit * Reason Comments Med Refill Encounter Details Date Type Department Care Team ([facility] Contact Info) Description 10/03/2025 Refill [facility] MEDICINE 230 [place], [place] [phone] Elizabeth Dean NP 230 [place], [place] [phone] Seborrheic dermatitis Social History Tobacco Use Types Packs/Day Years [...] 10/21/2025 1:00 PM EST Medication Management [address] [address] Juni Haji, HennyD [address] [place] [address] 11/04/2025 1:45 PM EST Office Visit [address] [address] Elizabeth Dean NP [address] [place] [address] 11/11/2025 9:30 AM EST Clinical Support [address] [address] Julia Lu, BEN documented as of this encounter Visit Diagnoses Diagnosis Seborrheic dermatitis Unspecified seborrheic dermatitis documented in this encounter Additional Health Concerns Assessment Noted Time PHQ-9 Depression Total Score: 20 025 7:51 AM EDT documented as of this encounter Care Teams Poly Packer And Heat Sealer Relationship Specialty Start Date End Date Elizabeth Dean NP [address] [place] [address] PCP - General Family Medicine 02/25/25 documented as of this encounter
--- OUTSIDE RECORDS SUMMARY | 2025-10-06 18:21 | XMS_ITS | Encounter Summary ---
Author Organization [employer] Address 75 [facility] 7t [place] [address] Care Team Providers Care Insole Filler Name Role Phone Kyra Driscoll MD Primary Care Provide r Elizabeth Dean NP Primary Care Provider [phone] Reason for Visit * Reason Comments Med Refill Encounter Details Date Type Department Care Team ([facility] Contact Info) Description 02/06/2023 Refill [facility] MEDICINE 230 [place], [place] [phone] Rachel Cash FNP 505 [place] [address] IFG (impaired fasting glucose); Uncomplicated opioid dependence [...] Upcoming Encounters Date Type Department Care Team ([facility] Contact Info) Description 10/21/2025 1:00 PM EST Medication Management [address] [address] Juni Haji, Liliana [address] [place] [address] 11/04/2025 1:45 PM EST Office Visit [address] [address] Elizabeth Dean NP [address] [place] [address] 11/11/2025 9:30 AM EST Clinical Support [address] [address] Julia Lu RN documented as of this encounter Visit Diagnoses Diagnosis IFG (impaired fasting glucose) Uncomplicated opioid dependence (CMS/HCC) (HCC) documented in this encounter Care Teams Insole Filler Relationship Specialty Start Date End Date Kyra Driscoll MD [address] [place] [address] PCP - General Family Medicine 06/03/19 03/03/24 Elizabeth Dean NP [address] [place] [address] PCP - General Family Medicine 02/25/25 documented as of this encounter
--- OUTSIDE RECORDS SUMMARY | 2025-10-06 18:21 | XMS_ITS | Encounter Summary ---
Author Organization [employer] Address 75 [facility] 7t [place] [address] Care Team Providers Care Environmental Communications Specialist Name Role Phone Kyra Driscoll MD Primary Care Provide r Elizabeth Dean NP Primary Care Provider [phone] Reason for Visit * Reason Comments Med Refill Encounter Details Date Type Department Care Team ([facility] st Contact Info) Description 02/25/2023 Refill [facility] MEDICINE 230 [place], [place] [phone] Porfirio Saldivar MD 230 [place], [place] [phone] Uncomplicated opioid dependence (CMS/HCC) Social History Tobacco [...] Description 10/21/2025 1:00 PM EST Medication Management [address] [address] Juni Haji, HennyD [address] [place] [address] 11/04/2025 1:45 PM EST Office Visit [address] [address] Elizabeth Dean NP [address] [place] [address] 11/11/2025 9:30 AM EST Clinical Support [address] [address] Julia Lu RN documented as of this encounter Visit Diagnoses Diagnosis Uncomplicated opioid dependence (CMS/HCC) (HCC) documented in this encounter Care Teams Environmental Communications Specialist Relationship Specialty Start Date End Date Kyra Driscoll MD [address] [place] [address] PCP - General Family Medicine 06/03/19 03/03/24 Elizabeth Dean NP [address] [place] [address] PCP - General Family Medicine 02/25/25 documented as of this encounter
--- OUTSIDE RECORDS SUMMARY | 2025-10-06 18:21 | XMS_ITS | Clinical Summary ---
Author Organization [facility] Address [address] [place] [address] Care Team Providers Care Soliciting Freight Agent Name Role Phone Kyra Driscoll MD Primary Care Provide r Surgical History Surgery Date Site/Laterality Comments TUBAL LIGATION 2006 Bilateral PROCEDURE: HISTORICAL TUBAL LIGATION OTHER SURGICAL HISTORY 2006 PROCEDURE: [place] HYSTEROSCOPY ENDOMETRIAL ABLATION GASTRIC BYPASS 2003 PROCEDURE: GASTRIC BYPASS FOR OBESIT; COMMENT: revision 2019 BREAST REDUCTION 2002 PROCEDURE: OH BREAST REDUCTION OTHER SURGICAL HISTORY 2009 PROCEDURE: ---- HEMORRHOIDS ---- CARPAL TUNNEL RELEASE 2010 PROCEDURE: [place] NEUROPLASTY &/TRANSPOS MEDIAN NRV CARPAL TUNNE KNEE ARTHROPLASTY Right PROCEDURE: [place] ARTHRS KNEE ABRASION ARTHRP/DIRECTOR OF QUALITY IMPROVEMENT DRLG/MICROFX BACK SURGERY PROCEDURE: HISTORICAL BACK SURGERY; COMMENT: lower back ? 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 ([facility] V24, [facility] V28) DX:Opioid depend w opioid-in maxime psychotic disorder w delusions ([facility]) Back pain DX:Back pain Cramps of lower extremity 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'S 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 mps of lower extremity Gastric bypass status for obesity DX:Gastric bypass status for obesity Knee pain DX:Knee pain Back pain DX:Back pain Systolic murmur DX:Systolic murm ur Seizure disorder ([facility] V2 4, [facility] V28) DX:Seizure disorder ([facility]) Bilateral hearing loss DX:Bilate ral hearing loss Bronchitis DX:Bronchitis Migraine DX:Migraine Scalp psoriasis DX:Scalp psorias is Bipolar 1 disorder (CMS/[facility] V24, [facility]/HCC V28) DX:Bipolar 1 disorder (HCC) Family [...] RESULTING AGENCY - 03/27/2020 12:15 PM EDT [id number] THINPREP PAP, IMAGED: NEGATIVE FOR SQUAMOUS INTRAEPITHELIAL [...] Recently Relevant to Health Maintenance Care Teams Soliciting Freight Agent Relationship Specialty Start Date End Date Kyra Driscoll MD [address] [phone] PCP - General Internal Medicine 08/13/21
--- OUTSIDE RECORDS SUMMARY | 2025-10-06 18:21 | XMS_ITS | Encounter Summary ---
Author Organization [employer] Address 75 [facility] 7t [place] [address] Care Team Providers Care Cad Administrator Name Role Phone Elizabeth Dean NP Primary Care Provider [phone] Reason for Visit * Reason Comments Med Refill Encounter Details Date Type Department Care Team ([facility] Contact Info) Description 10/04/[address] [facility] MEDICINE 230 [place], [place] [phone] Elizabeth Dean NP 230 [place], [place] [phone] Social History Tobacco Use Types Packs/Day Years [...] 10/21/2025 1:00 PM EST Medication Management [address] [address] Juni Haji, PharmD [address] [place] [address] 11/04/2025 1:45 PM EST Office Visit [address] [address] Elizabeth Dean NP [address] [place] [address] 11/11/2025 9:30 AM EST Clinical Support [address] [address] Julia Lu, BEN documented as of this encounter Visit Diagnoses Not on filedocumented in this encounter Additional Health Concerns Assessment Noted Time PHQ-9 Depression Total Score: 20 025 7:51 AM EDT documented as of this encounter Care Teams Cad Administrator Relationship Specialty Start Date End Date Elizabeth Dean NP [address] [place] [address] PCP - General Family Medicine 02/25/25 documented as of this encounter
--- OUTSIDE RECORDS SUMMARY | 2025-10-06 18:21 | XMS_ITS | Encounter Summary ---
Author Organization [employer] Address 75 [facility] 7t [place] [address] Care Team Providers Care Armhole Presser Name Role Phone Elizabeth Dean NP Primary Care Provider [phone] Reason for Visit * Reason Comments Med Refill Encounter Details Date Type Department Care Team ([facility] st Contact Info) Description 10/02/2025 Refill [facility] MEDICINE 230 [place], [place] [phone] Elizabeth Dean NP 230 [place], [place] [phone] Other muscle spasm; Moderate persistent asthma without complication; Seborrheic dermatitis Social History Tobacco Use Types [...] Description 10/21/2025 1:00 PM EST Medication Management [address] [address] Juni Haji, PharmD [address] [place] [address] 11/04/2025 1:45 PM EST Office Visit [address] [address] Elizabeth Dean NP [address] [place] [address] 11/11/2025 9:30 AM EST Clinical Support [address] [address] Julia Lu RN documented as of this encounter Visit Diagnoses Diagnosis Other muscle spasm Moderate persistent asthma without complication Seborrheic dermatitis Unspecified seborrheic dermatitis documented in this encounter Additional Health Concerns Assessment Noted Time PHQ-9 Depression Total Score: 20 025 7:51 AM EDT documented as of this encounter Care Teams Armhole Presser Relationship Specialty Start Date End Date Elizabeth Dean NP [address] [place] [address] PCP - General Family Medicine 02/25/25 documented as of this encounter
--- OUTSIDE RECORDS SUMMARY | 2025-10-06 18:21 | XMS_ITS | Encounter Summary ---
Author Organization [employer] Address 75 [facility] 7t [place] [address] Care Team Providers Care South Asian History Professor Name Role Phone Elizabeth Dean MARCO Primary Care Provider [phone] Reason for Visit * Reason Comments Med Refill Encounter Details Date Type Department Care Team ([facility] st Contact Info) Description 03/25/2025 Refill [facility] MEDICINE 230 [place], [place] [phone] Porfirio Saldivar MD 230 [place], [place] [phone] Uncomplicated opioid dependence (CMS/HCC) Social History Tobacco [...] Description 10/21/2025 1:00 PM EST Medication Management [address] [address] Juni Haji, PharmD [address] [place] [address] 11/04/2025 1:45 PM EST Office Visit [address] [address] Elizabeth Dean NP [address] [place] [address] 11/11/2025 9:30 AM EST Clinical Support [address] [address] Julia Lu, BEN documented as of this encounter Visit Diagnoses Diagnosis Uncomplicated opioid dependence (CMS/HCC) (HCC) documented in this encounter Additional Health Concerns Assessment Noted Time PHQ-9 Depression Total Score: 19 025 7:51 AM EDT documented as of this encounter Care Teams South Asian History Professor Relationship Specialty Start Date End Date Elizabeth Dean NP [address] [place] [address] PCP - General Family Medicine 02/25/25 documented as of this encounter
--- OUTSIDE RECORDS SUMMARY | 2025-10-06 18:21 | XMS_ITS | Encounter Summary ---
Author Organization [employer] Address 75 [facility] 7t [place] [address] Care Team Providers Care Automatic Packer Operator Name Role Phone Kyra Driscoll MD Primary Care Provide r Elizabeth Dean NP Primary Care Provider [phone] Reason for Visit * Reason Comments Med Refill Encounter Details Date Type Department Care Team (Late Contact Info) Description 04/17/2023 Refill [facility] CH[facility] MED & PEDS [address] [place], [place] [phone] [facility] [address] [place] [address] Iron deficiency Social History Tobacco Use Types [...] Description 10/21/2025 1:00 PM EST Medication Management [address] [address] Juni Haji, PharmD 230 [place] [address] 11/04/2025 1:45 PM EST Office Visit [address] [address] Elizabeth Dean NP [address] [place] [address] 11/11/2025 9:30 AM EST Clinical Support [address] [address] Julia Lu RN documented as of this encounter Visit Diagnoses Diagnosis Iron deficiency Disorders of iron metabolism documented in this encounter Care Teams Automatic Packer Operator Relationship Specialty Start Date End Date Kyra Driscoll MD [address] [place] [address] PCP - General Family Medicine 06/03/19 03/03/24 Elizabeth Dean NP [address] [place] [address] PCP - General Family Medicine 02/25/25 documented as of this encounter
--- OUTSIDE RECORDS SUMMARY | 2025-10-06 18:21 | XMS_ITS | Encounter Summary ---
Author Organization [employer] Address 75 [facility] 7t [place] [address] Care Team Providers Care Divinity Teacher Name Role Phone Elizabeth Dean NP Primary Care Provider [phone] Reason for Visit * Reason Comments Med Refill Encounter Details Date Type Department Care Team ([facility] Contact Info) Description 03/27/2025 Refill [facility] MEDICINE 230 [place], [place] [phone] Elizabeth Dean NP 230 [place], [place] [phone] Other muscle spasm Social History Tobacco Use [...] Description 10/21/2025 1:00 PM EST Medication Management [address] [address] Juni Haji, PharmD [address] [place] [address] 11/04/2025 1:45 PM EST Office Visit [address] [address] Elizabeth Dean NP [address] [place] [address] 11/11/2025 9:30 AM EST Clinical Support [address] [address] Julia Lu RN documented as of this encounter Visit Diagnoses Diagnosis Other muscle spasm documented in this encounter Additional Health Concerns Assessment Noted Time PHQ-9 Depression Total Score: 19 025 7:51 AM EDT documented as of this encounter Care Teams Divinity Teacher Relationship Specialty Start Date End Date Elizabeth Dean NP 230 [place] [address] PCP - General Family Medicine 02/25/25 documented as of this encounter
--- OUTSIDE RECORDS SUMMARY | 2025-10-06 18:21 | XMS_ITS | Encounter Summary ---
Author Organization [employer] Address [address] [facility] [address] [place] [address] Care Team Providers Care Maltster Name Role Phone Kyra Driscoll MD Primary Care Provide r Elizabeth Dean NP Primary Care Provider [phone] Reason for Visit * Reason Onset Date Comments Durable Medical Equipment 03/28/2023 Encounter Details Date Type Department Care Team (Late st Contact Info) Description 03/28/2023 Telephone [facility] [address] [place], [place] [phone] Kyra Driscoll MD [address] [place], [place] [phone] Durable Medical Equipment Social History Tobacco Use [...] 10/21/2025 1:00 PM EST Medication Management [address] [address] Juni Haji, PharmD [address] [place] [id number] 11/04/2025 1:45 PM EST Office Visit [address] [address] Elizabeth Dean NP [address] [place] [phone] 11/11/2025 9:30 AM EST Clinical Support [address] [address] Julia Lu RN documented as of this encounter Visit Diagnoses Not on filedocumented in this encounter Care Teams Maltster Relationship Specialty Start Date End Date Kyra Driscoll MD [address] [place] [phone] PCP - General Family Medicine 06/03/19 03/03/24 Elizabeth Dean NP [address] [place] [phone] PCP - General Family Medicine 02/25/25 documented as of this encounter
--- OUTSIDE RECORDS SUMMARY | 2025-10-06 18:21 | XMS_ITS | Clinical Summary ---
Author Organization [employer] Address [address] [facility] [address] [place] [address] Care Team Providers Care Punchboard Stuffer Name Role Phone Elizabeth Dean MARCO Primary Care Provider [phone] Allergies Active Allergy Reactions Criticality Noted Date [...] day. 30 tablet 11 025 2025 Active Accu-Chek FastClix Lancets miscIndications: Hypoglycemia 1 [...] mL 1 09/19/20 25 1:26 PM EST 025 Active docusate sodium (Colace) 100 MG capsule TAKE 1 CAPSULE BY MOUTH TWICE DAILY IN THE MORNING AND IN THE EVENING 180 capsule 1 09/19/20 25 1:26 PM EST 025 Active Fluticasone Furoate-Vilanter ol (Breo Ellipta) 200-25 MCG/ACT aerosol powder Inhale 1 puff Once per day. 30 each 1 09/19/20 1:26 PM EST 2024 Active OXcarbazepine (Trileptal) 600 MG tabletIndication s:Seizure (CMS/HCC) ([facility]) Take 1 tablet (600 mg) [...] mouth Once per day. 30 tablet 2 2025 Active Ubrogepant (Ubrelvy) 100 MG tabletIndication s:Other migraine without status migrainosus, intractable Take 1 tablet (100 mg) by mouth Once daily as needed (headache) for up to 28 days. 14 tablet 1 09/29/20 2:43 PM EST 2024 Active Ketotifen Fumarate 0.035 % solutionIndicati ons:Seasonal allergic rhinitis due to pollen INSTILL 1 DROP IN EACH EYE TWICE DAILY IN THE MORNING AND AT BEDTIME NEEDED FOR ITCHING OR FOR ALLERGIES 10 mL 2 09/29/20 2:43 PM EST Active prazosin (Minipress) 1 MG capsule TAKE 1 CAPSULE BY MOUTH EVERY DAY AT BEDTIME NEEDED 30 capsule 1 09/19/20 1:26 PM EST Active EPINEPHrine (Epipen) 0.3 MG/0.3ML injection syringeIndicatio ns:Allergy, subsequent encounter INJECT INTRAMUSCULARLY DIRECTED ON PACKAGE AND GO TO EMERGENCY ROOM 2 each 2 Active fexofenadine (Nupur) 180 MG [...] SHORTNESS OF BREATH 75 mL 1 09/25/20 3:52 PM EST Active fluticasone (Flonase) 50 MCG/ACT nasal spray Administer 1 spray into each nostril every 12 (twelve) hours. 16 g 1 09/29/20 2:43 PM EST Active Multiple Vitamin (Multivitamin) tablet TAKE 1 TABLET BY MOUTH ONCE A DAY 180 tablet 3 Active tiZANidine (Zanaflex) 4 MG tabletIndication s:Other muscle spasm TAKE 1 TABLET BY MOUTH EVERY 8 HOURS NEEDED. DO NOT EXCEED 3 TABLETS IN 24 HOURS 90 tablet 10/06/20 4:52 PM EST Active ketoconazole (NIZOral) 2 % shampooIndicatio ns:Seborrheic dermatitis Apply topically 2 (two) times a week. 240 mL 1 025 Active albuterol 108 (90 Base) MCG/ACT inhaler Inhale 2 puffs every 4 (four) hours if needed for wheezing. INHALE 2 PUFFS BY MOUTH EVERY 4 HOURS NEEDED FOR WHEEZING OR SHORTNESS OF BREATH 18 g 3 025 Active acetaminophen (Tylenol) 500 MG tablet Take 1 tablet by mouth every 6 (six) hours. 2024 Discontinued( Med list cleanup (will not trigger notification to Pharmacy)) acarbose (Precose) 50 MG tablet Take 50 mg by mouth 3 times daily. 023 2024 Discontinued( Med list cleanup (will [...] trigger notification to Pharmacy)) Continuous Blood Gluc Retail Manager In [employer] (FreeStyle Cindy 2 [place]) device USE DIRECTED 023 2024 Discontinued( Med list cleanup (will [...] (will not trigger notification to Pharmacy)) fluocinolone ([place]) 0.01 % external oil apply by topical [...] (will not trigger notification to Pharmacy)) pancrelipase, Aeg-Ivkw-Nvlb, (Creon) 5884-7588 units capsule Take 1 capsule by mouth. [...] cleanup (will not trigger notification to Pharmacy)) lamoTRIgine (LaMICtal) 25 MG tablet Take 1 tablet (25 mg) by mouth every other day. 30 tablet 2 025 2024 Discontinued( Reorder (will not trigger notification to Pharmacy)) ketoconazole (NIZOral) 2 % shampooIndicatio ns:Seborrheic dermatitis Apply topically 2 (two) times a week. 240 mL 1 025 2024 Discontinued( Reorder (will not trigger notification to Pharmacy)) albuterol 108 (90 Base) MCG/ACT inhaler INHALE 2 PUFFS BY MOUTH EVERY 4 HOURS NEEDED FOR WHEEZING OR SHORTNESS OF BREATH 18 g 3 09/25/20 25 3:52 PM EST 2024 Discontinued( Reorder (will not trigger notification to Pharmacy)) fexofenadine (Nupur) 180 MG tabletIndication s:Allergy, subsequent encounter Take 1 tablet (180 mg) by mouth Once per day. 90 tablet 025 2024 Discontinued gabapentin (Neurontin) 800 MG tabletIndication s:Neuropathic pain Take 1 tablet (800 mg) by mouth 3 times daily. 270 tablet 2024 Discontinued albuterol (2.5 MG/3ML) 0.083% nebulizer [...] 3 TABLETS / DAY 90 tablet 025 2024 Discontinued Suboxone 8-2 [...] reviewed with Dr. Gordon Expect called to [facility] and pt transported via ambulance Seizures ([facility]) 02/28/2025 NARCISO positive 02/28/2025 [...] radiculopathy 01/13/2025 Mixed bipolar affective disorder, mild (CMS/HCC) 01/13/2025 Assessment & Plan (04/07/2025 4:20 PM EDT): Referral to psychiatry, Renewed meds Multiple sclerosis 01/13/2025 Spasm 01/13/2025 Systemic lupus erythematosus ([facility]/HCC) Assessment & Plan (03/11/2025 11:55 AM EDT): [...] has an open endo referral. I called [facility] endo. They said they recently lost 4 or 5 providers so they are booked out until October. They happened to have an open appointment MondayMarch 06 at 1545. [address] [facility] [address] I called patient and informed her of her appointment. Migraine headache 12/02/2022 Neck pain 12/02/2022 Obstructive sleep apnea syndrome 12/02/2022 Assessment & Plan (08/25/2025 1:04 PM EDT): Orders: Referral to Sleep Medicine; Future Pain in elbow 12/02/2022 Positive antinuclear antibody 12/02/2022 Rash 12/02/2022 Seropositive rheumatoid arthritis (CMS/HCC) 11/07 Assessment & Plan (03/11/2025 11:55 AM [...] Dermatochalasis of both upper eyelids 03/15/2019 Seizure ([facility]/HCC) 03/15/2019 Assessment & Plan (08/25/2025 1:04 PM [...] obstructive pu lmonary disease) with chronic bronchitis ([facility]) 11/29/2017 Assessment & Plan [...] in early remission, on maintenance therapy, dependence ([facility]) 09/04/2015 Fibromyositis 04/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 Assessment [...] 01/13/2025 04/08/2025 Multiple joint pain 12/02/2022 04/08/20 Mood disorder 01/23/2013 03/07/2025 Obesity 01/23/2013 04/08/2025 Encounters Date Type Department Care Team Description 10/04/2025 Refill [facility] [address] [facility] [place] [address] Elizabeth Dean NP 10/03/2025 Refill [facility] [address] [place] [address] Elizabeth Dean NP Seborrheic dermatitis 10/02/2025 Refill [facility] [address] [place] [address] Elizabeth Dean NP Other muscle spasm; Moderate persistent asthma without complication; Seborrheic dermatitis 10/01/2025 Telephone [facility] [address] [place] [address] Elizabeth Dean NP Med Refill 09/26/2025 Refill [facility] [address] [place] [address] Elizabeth Dean NP 09/25/2025 Refill [facility] [address] [place] [address] Elizabeth Dean NP 09/24/2025 Telephone [facility] [address] [place] [address] Kasia Moran LPN 09/24/2025 Refill [facility] [address] [place] [address] Elizabeth Dean NP Moderate persistent asthma without complication 09/18/2025 Refill [facility] [address] [place] [address] Elizabeth Dean NP 09/16/2025 10:30 AM EST Office Visit [facility] [address] [facility] [place] [address] Porfirio Saldivar MD Opioid dependence on maintenance agonist therapy, no symptoms (CMS/HCC) (HCC) (Primary Dx); Uncomplicated opioid dependence (CMS/HCC) (HCC) 09/16/2025 Orders Only [facility] External Provider, [facility] 09/16/2025 Refill [facility] [address] [place] [address] Elizabeth Dean NP Allergy, subsequent encounter; Neuropathic pain 09/16/2025 Travel 09/12/2025 Telephone [facility] [address] [place] [address] Elizabeth Dean NP 09/12/2025 Telephone [facility] [address] [place] [address] Elizabeth Dean NP Prior Authorization 09/11/2025 Telephone [facility] [address] [place] [phone] Elizabeth Dean NP Error (VOID this visit) (Entered in error/) 09/08/2025 Refill [facility] [address] [place] [phone] Julia Lu RN Uncomplicated opioid dependence ([facility]) ([facility]) 09/08/2025 Refill [facility] [address] [place] [address] Elizabeth Dean NP Other muscle spasm 09/03/2025 Refill [facility] [address] [place] [phone] Elizabeth Dean NP Seasonal allergic rhinitis due to pollen; Allergy, subsequent encounter 09/01/2025 Telephone [facility] [address] [place] [phone] Elizabeth Dean NP 08/29/2025 Telephone [facility] [address] [place] [phone] Elizabeth Dean NP Durable Medical Equipment 08/28/2025 Patient Outreach [facility] [address] [place] [phone] [facility] 08/28/2025 Telephone [facility] [address] [place] [phone] Elizabeth Dean NP 08/25/2025 11:30 AM EDT Office Visit [facility] [address] [place] [phone] Elizabeth Dean NP Acute right ankle pain (Primary Dx); Acute pain of right knee; Pre-diabetes; Hypoglycemia after GI (gastrointestinal) surgery; Seizure ([facility]) ([facility]); Moderate asthma without complication, unspecified whether persistent; Elevated blood pressure reading; Chronic nausea; COPD (chronic obstructive pulmonary disease) with chronic bronchitis ([facility]) ([facility]); Other migraine without status migrainosus, intractable; Incontinence in female; Obstructive sleep apnea syndrome; Morbid obesity ([facility]) ([facility]) 08/25/2025 Travel 08/25/2025 Refill [facility] [address] [place] [address] Torres Morillo MD 08/22/2025 Telephone [facility] [address] [place] [phone] Elizabeth Dean NP chart prep 08/19/2025 9:30 AM EDT Clinical Support [facility] [address] [place] [phone] Julia Lu RN Uncomplicated opioid dependence ([facility]) ([facility]) 08/19/2025 Travel 08/14/2025 Refill [facility] [address] [place] [address] Elizabeth Dean NP Other muscle spasm; Nausea; Anxiety 08/12/2025 Refill [facility] [address] [place] [address] Julia Lu RN Uncomplicated opioid dependence ([facility]) ([facility]) 08/11/2025 Patient Outreach [facility] [address] [place] [address] Aron Hernández Recovery Supports 08/11/2025 Refill [facility] [address] [place] [address] Elizabeth Dean NP Moderate persistent asthma without complication 08/06/2025 Refill [facility] [address] [place] [address] Elizabeth Dean NP Nausea; Anxiety 08/02/2025 Refill [facility] [address] [place] [address] Elizabeth Dean NP Seborrheic dermatitis; Major depressive disorder in full remission, unspecified whether recurrent ([facility]) 07/31/2025 Telephone [facility] [address] [place] [phone] Elizabeth Dean NP Prior Authorization 07/31/2025 Telephone [facility] [address] [place] [phone] Elizabeth Dean NP med b form 07/29/2025 Refill [facility] [address] [place] [address] [phone] Elizabeth Dean NP Moderate persistent asthma without complication 07/25/2025 Patient Outreach [facility] [address] [place] [address] [phone] Bartolo Petit Recovery Supports 07/22/2025 9:15 AM EDT Office Visit [address] [address] Porfirio Saldivar MD Uncomplicated opioid dependence ([facility]) (Primary Dx) 07/22/2025 Refill [facility] [address] [place] [phone] Elizabeth Dean NP Allergy, subsequent encounter 07/22/2025 Travel 07/15/2025 Refill [facility] [address] [place] [address] [phone] Julia Lu RN Uncomplicated opioid dependence ([facility]) from Last 3 Months Immunizations Immunization Administration [...] Description 10/21/2025 1:00 PM EST Medication Management [address] [address] Juni Haji, PharmD [address] [place] [address] 11/04/2025 1:45 PM EST Office Visit [address] [phone] Elizabeth Dean NP 230 [place], [place] [phone] 11/11/2025 9:30 AM EST Clinical Support [address] [address] Julia Lu, BEN Health Maintenance Due Date [...] PM EST Narrative 10/01/2025 12:29 PM EST [address] [address] XRay Report Signed Patient: Christie Ortiz MR#: [id number] 31 : 1975 Acct:[id number] Age/Sex: 50 / F ADM Date: 10/01/25 Loc: HO.HHCX Attending Dr: Tamar Sanchez MD Ordering Physician: Tamar Sanchez MD Date of Service: 10/01/25 Procedure(s): XR sacroiliac joint min 3V Accession Number(s): [id number] cc: Tamar Sanchez MD; Elizabeth Dean HOLLOW [employer] DOOR FRAME ASSEMBLER Reason for Exam: M05.9 - Rheumatoid arthritis [...] by: Garcia Ortiz MD 10/01/2025 12:26 PM [facility] Dictated By: Garcia Ortiz MD Signed By: <Electronically signed by Garcia Ortiz MD in OV> 10/01/25 1226 DD/ 1203 TD/TT: 10/01/25 1204 Sanitation Inspector: Procedure Note Donotuseinterpreter, Image - 10/01/2025 [place] [address] XRay Report Signed Patient: Christie Ortiz [facility]#: [id number] [birth year] : 1975Acct:[id number] Age/Sex: 50 / FADM Date: 10/01/25 Loc: HO.HHCX Attending Dr: Tamar Sanchez MD Ordering Physician: Tamar Sanchez MD Date of Service: 10/01/25 Procedure(s): XR sacroiliac joint min 3V Accession Number(s): [id number] cc: Tamar Sanchez MD; Elizabeth Dean HOLLOW C[employer] DOOR FRAME ASSEMBLER Reason for Exam: M05.9 - Rheumatoid arthritis [...] 10/01/25 1226 DD/ 1203 TD/TT: 10/01/25 1204 Sanitation Inspector: [facility] External Provider IMG XR PROCEDURES Final Result * XR Spine Cervical w/ Flext and/ Or Ext (10/01/2025 11:54 AM EST) Anatomical Region Laterality Modality Radiographic Jenna ging 10/01/2025 11:5 4 AM EST Narrative 10/01/2025 12:36 [place] [address] XRay Report Signed Patient: Christie Ortiz MR#: [id number] [birth year] : 1975 Acct:[id number] Age/Sex: 50 / F ADM Date: 10/01/25 Loc: HO.HHCX Attending Dr: Tamar Sanchez MD Ordering Physician: Tamar Sanchez MD Date of Service: 10/01/25 Procedure(s): XR cervical spine w flex/ext Accession Number(s): [id number] cc: Tamar Sanchez MD; Elizabeth Dean NP [...] by: Garcia Ortiz MD 10/01/2025 12:32 PM [facility] Dictated By: Garcia Ortiz MD Signed By: <Electronically signed by Garcia Ortiz MD in OV> 10/01/25 1232 DD/ 1154 TD/TT: 10/01/25 1200 Sanitation Inspector: Procedure Note Donotuseinterpreter, Image - 10/01/2025 [place] [address] XRay Report Signed Patient: Christie Ortiz [facility]#: [id number] [birth year] : 1975Acct:[id number] Age/Sex: 50 / FADM Date: 10/01/25 Loc: HO.HHCX Attending Dr: Tamar Sanchez MD Ordering Physician: Tamar Sanchez MD Date of Service: 10/01/25 Procedure(s): XR cervical spine w flex/ext Accession Number(s): [id number] cc: Tamar Sanchez MD; Elizabeth Dean NP [...] 10/01/25 1232 DD/ 1154 TD/TT: 10/01/25 1200 Sanitation Inspector: [facility] External Provider IMG XR PROCEDURES Final Result * XR Wrist 3+ Views Left (09/16/2025 3:20 PM EST) Anatomical Region Laterality Modality Upper Extremities, Wrist Left Radiogr aphic Imaging 09/16/2025 3:20 PM EST Narrative 09/16/2025 3:50 PM EST [address] [address] XRay Report Signed Patient: Christie Ortiz MR#: [id number] [birth year] : 1975 Acct:[id number] Age/Sex: 50 / F ADM Date: 09/16/25 Loc: HO.HHCX Attending Dr: Tamar Sanchez MD Ordering Physician: Tamar Sanchez MD Date of Service: 09/16/25 Procedure(s): XR wrist LT min 3V Accession Number(s): [id number] cc: Tamar Sanchez MD; Elizabeth Dean NP [...] 09/16/25 1547 DD/ 1520 TD/TT: 09/16/25 1526 Sanitation Inspector: Procedure Note Donotuseinterpreter, Image - 09/16/[address] [address] XRay Report Signed Patient: Christie Ortiz NMR#: [id number] [birth year] : 1975Acct:[id number] Age/Sex: 50 / FADM Date: 09/16/25 Loc: HO.HHCX Attending Dr: Tamar Sanchez MD Ordering Physician: Tamar Sanchez MD Date of Service: 09/16/25 Procedure(s): XR wrist LT min 3V Accession Number(s): [id number] cc: Tamar Sanchez MD; Elizabeth Dean NP [...] 09/16/25 1547 DD/ 1520 TD/TT: 09/16/25 1526 Sanitation Inspector: [facility] External Provider IMG XR PROCEDURES Final Result * XR Lumbar Spine Complete 4+ Views (09/16/2025 1:48 PM EST) Anatomical Region Laterality Modality Spine, L-spine Radiographic Jenna ging 09/16/2025 1:48 PM EST Narrative 09/16/2025 3:35 PM EST [address] [address] XRay Report Signed Patient: Christie Ortiz MR#: [id number] 31 : 1975 Acct:[id number] Age/Sex: 50 / F ADM Date: 09/16/25 Loc: HHAddyX Attending Dr: Tamar Sanchez MD Ordering Physician: Tamar Sanchez MD Date of Service: 09/16/25 Procedure(s): XR lumbar spine 4V min Accession Number(s): [id number] cc: Tamar Sanchez MD; Elizabeth Dean HO[employer] DOOR FRAME ASSEMBLER Reason for Exam: M05.9 - Rheumatoid arthritis [...] by: Andrew Parks MD 09/16/2025 03:32 PM [facility] Dictated By: Andrew Nichols MD Signed By: <Electronically signed by Andrew Ma MD in OV> 09/16/25 1532 DD/ 1348 TD/TT: 09/16/25 1526 Sanitation Inspector: Procedure Note Donotuseinterpreter, Image - 09/16/[address] [address] XRay Report Signed Patient: Christie Ortiz [facility]#: [id number] [birth year] : 1975Acct:[id number] Age/Sex: 50 / FADM Date: 09/16/25 Loc: JOCELIN.HHAddyX Attending Dr: Tamar Sanchez MD Ordering Physician: Tamar Sanchez MD Date of Service: 09/16/25 Procedure(s): XR lumbar spine 4V min Accession Number(s): [id number] cc: Tamar Sanchez MD; Elizabeth Dean HOLLOW [employer] DOOR FRAME ASSEMBLER Reason for Exam: M05.9 - Rheumatoid arthritis [...] 09/16/25 1532 DD/ 1348 TD/TT: 09/16/25 1526 Sanitation Inspector: [facility] External Provider IMG XR PROCEDURES Final Result * XR Ankle 3+ Views Right (09/16/2025 1:41 PM EST) Anatomical Region Laterality Modality Lower Extremities, Ankle Right Radiogr aphic Imaging 09/16/2025 1:41 PM EST Narrative 09/16/2025 3:35 [place] [address] XRay Report Signed Patient: Christie Ortiz MR#: [id number] [birth year] : 1975 Acct:[id number] Age/Sex: 50 / F ADM Date: 09/16/25 Loc: HO.HHCX Attending Dr: Tamar Sanchez MD Ordering Physician: Sagrario Diane DPM Date of Service: 09/16/25 Procedure(s): XR ankle RT min 3V Accession Number(s): [id number] cc: Elizabeth Dean HO[employer] DOOR FRAME ASSEMBLER; Sagrario Diane DPM Reason for Exam: M25.571 [...] by: Garcia Ortiz MD 09/16/2025 03:32 PM [facility] Dictated By: Garcia Ortiz MD Signed By: <Electronically signed by Garcia Ortiz MD in OV> 09/16/25 1532 DD/ 1341 TD/TT: 09/16/25 1526 Sanitation Inspector: Procedure Note Donotuseinterpreter, Image - 09/16/2025 [place] [address] XRay Report Signed Patient: Christie Ortiz [facility]#: [id number] 31 : 1975Acct:[id number] Age/Sex: 50 / FADM Date: 09/16/25 Loc: HO.HHCX Attending Dr: Tamar Sanchez MD Ordering Physician: Sagrario Diane DPM Date of Service: 09/16/25 Procedure(s): XR ankle RT min 3V Accession Number(s): [id number] cc: Elizabeth Dean [employer] DOOR FRAME ASSEMBLER; Sagrario Diane DPM Reason for Exam: M25.571 [...] 09/16/25 1532 DD/ 1341 TD/TT: 09/16/25 1526 Sanitation Inspector: [facility] External Provider IMG XR PROCEDURES Final Result * XR Hip 2 or 3 Views Left (09/16/2025 1:31 PM EST) Anatomical Region Laterality Modality Lower Extremities, Hip Left Radiograp hic Imaging 09/16/2025 1:31 PM EST Narrative 09/16/2025 3:36 PM EST [address] [address] XRay Report Signed Patient: Christie Ortiz MR#: [id number] [birth year] : 1975 Acct:[id number] Age/Sex: 50 / F ADM Date: 09/16/25 Loc: HO.HHCX Attending Dr: Tamar Sanchez MD Ordering Physician: Tamar Sanchez MD Date of Service: 09/16/25 Procedure(s): XR hip LT min 2V Accession Number(s): [id number] cc: Tamar Sanchez MD; Elizabeth Dean NP [...] 09/16/25 1533 DD/ 1331 TD/TT: 09/16/25 1526 Sanitation Inspector: Procedure Note Donotuseinterpreter, Image - 09/16/[address] [address] XRay Report Signed Patient: Christie Ortiz NMR#: [id number] 31 : 1975Acct:[id number] Age/Sex: 50 / FADM Date: 09/16/25 Loc: HO.HHCX Attending Dr: Tamar Sanchez MD Ordering Physician: Tamar Sanchez MD Date of Service: 09/16/25 Procedure(s): XR hip LT min 2V Accession Number(s): [id number] cc: Tamar Sanchez MD; Elizabeth Dean NP [...] 09/16/25 1533 DD/ 1331 TD/TT: 09/16/25 1526 Sanitation Inspector: [facility] External Provider IMG XR PROCEDURES Final Result * XR Hip 2 or 3 Views Right (09/16/2025 1:30 PM EST) Anatomical Region Laterality Modality Lower Extremities, Hip Right Radiograp hic Imaging 09/16/2025 1:30 PM EST Narrative 09/16/2025 3:37 PM EST [facility] [address] [place] [address] XRay Report Signed Patient: Christie Ortiz MR#: [id number] [birth year] : 1975 Acct:[id number] Age/Sex: 50 / F ADM Date: 09/16/25 Loc: HO.HHCX Attending Dr: Tamar Sanchez MD Ordering Physician: Tamar Sanchez MD Date of Service: 09/16/25 Procedure(s): XR hip RT min 2V Accession Number(s): [id number] cc: Tamar Sanchez MD; Elizabeth Dean NP [...] 09/16/25 1534 DD/ 1330 TD/TT: 09/16/25 1526 Sanitation Inspector: Procedure Note Donotuseinterpreter, Image - 09/16/[address] [address] XRay Report Signed Patient: Christie Ortiz NMR#: [id number] 31 : 1975Acct:[id number] Age/Sex: 50 / FADM Date: 09/16/25 Loc: HO.HHX Attending Dr: Tamar Sanchez MD Ordering Physician: Tamar Sanchez MD Date of Service: 09/16/25 Procedure(s): XR hip RT min 2V Accession Number(s): [id number] cc: Tamar Sanchez MD; Elizabeth Dean NP [...] 09/16/25 1534 DD/ 1330 TD/TT: 09/16/25 1526 Sanitation Inspector: us [facility] External Provider IMG XR PROCEDURES Final Result * XR Knee 3 Views Right (09/16/2025 1:28 PM EST) Anatomical Region Laterality Modality Lower Extremities, Knee Right Radiogra phic Imaging 09/16/2025 1:28 PM EST Narrative 09/16/2025 3:51 PM EST [address] [address] XRay Report Signed Patient: Christie Ortiz N MR#: [id number] [birth year] : 1975 Acct:[id number] Age/Sex: 50 / F ADM Date: 09/16/25 [facility]: Tamar Sanchez MD Ordering Physician: Tamar Sanchez MD Date of Service: 09/16/25 Procedure(s): XR knee RT 3V Accession Number(s): [id number] cc: aTmar Sanchez MD; Elizabeth Dean NP Reason for [...] by: Gricelda Shah MD 09/16/2025 03:48 PM [facility] Dictated By: Gricelda Shah MD Signed By: <Electronically signed by Gricelda Shah MD in OV> 09/16/25 1548 DD/ 1328 TD/TT: 09/16/25 1526 Sanitation Inspector: RUEL Procedure Note Donotuseinterpreter, Image - 09/16/[address] [address] XRay Report Signed Patient: Christie Ortiz NMR#: [id number] [birth year] : 1975Acct:[id number] Age/Sex: 50 / FADM Date: 09/16/25 Loc: GABYX Attending Dr: Tamar Sanchez MD Ordering Physician: Tamar Sanchez MD Date of Service: 09/16/25 Procedure(s): XR knee RT 3V Accession Number(s): [id number] cc: Tamar Sanchez MD; Elizabeht Dean HOLLOW [employer] DOOR FRAME ASSEMBLER Reason for Exam: M05.9 - Rheumatoid arthritis [...] 09/16/25 1548 DD/ 1328 TD/TT: 09/16/25 1526 Sanitation Inspector: RUEL [facility] External Provider IMG XR PROCEDURES Final Result * XR Wrist 3+ Views Right (09/16/2025 1:26 PM EST) Anatomical Region Laterality Modality Upper Extremities, Wrist Right Radiogr aphic Imaging 09/16/2025 1:26 PM EST Narrative 09/16/2025 3:51 [place] [address] XRay Report Signed Patient: Christie Ortiz MR#: [id number] [birth year] : 1975 Acct:[id number] Age/Sex: 50 / F ADM Date: 09/16/25 Loc: HO.HHCX Attending Dr: Tamar Sanchez MD Ordering Physician: Tamar Sanchez MD Date of Service: 09/16/25 Procedure(s): XR wrist RT min 3V Accession Number(s): [id number] cc: Tamar Sanchez MD; Elizabeth Dean HOLLOW CORE DOOR FRAME ASSEMBLER Reason for Exam: M05.9 - Rheumatoid arthritis [...] 09/16/25 1549 DD/ 1326 TD/TT: 09/16/25 1526 Sanitation Inspector: WALTER Procedure Note Donotuseinterpreter, Image - 09/16/[address] [address] XRay Report Signed Patient: Christie Ortiz [facility]#: [id number] [birth year] : 1975Acct:[id number] Age/Sex: 50 / FADM Date: 09/16/25 Loc: HO.HHCX Attending Dr: Tamar Sanchez MD Ordering Physician: Tamar Sanchez MD Date of Service: 09/16/25 Procedure(s): XR wrist RT min 3V Accession Number(s): [id number] cc: Tamar Sanchez MD; Elizabeth Dean NP [...] 09/16/25 1549 DD/ 1326 TD/TT: 09/16/25 1526 Sanitation Inspector: WALTER [facility] External Provider IMG XR PROCEDURES Final Result * XR Hand 3+Views Bilateral (09/16/2025 1:22 PM EST) Anatomical Region Laterality Modality Upper Extremities, Hand Bilateral Radiogra phic Imaging 09/16/2025 1:22 PM EST Narrative 09/16/2025 3:48 PM EST [facility] [address] [place] [address] XRay Report Signed Patient: Christie Ortiz MR#: [id number] [birth year] : 1975 Acct:[id number] Age/Sex: 50 / F ADM Date: 09/16/25 Loc: HO.HHCX Attending Dr: Tamar Sanchez MD Ordering Physician: Tamar Sanchez MD Date of Service: 09/16/25 Procedure(s): XR Hand Bilat min 3v Accession Number(s): [id number] cc: Tamar Sanchez MD; Elizabeth Dean NP [...] 09/16/25 1545 DD/ 1322 TD/TT: 09/16/25 1526 Sanitation Inspector: Procedure Note Donotuseinterpreter, Image - 09/16/[address] [address] XRay Report Signed Patient: Christie Ortiz NMR#: [id number] [birth year] : 1975Acct:[id number] Age/Sex: 50 / FADM Date: 09/16/25 Loc: HO.HHCX Attending Dr: Tamar Sanchez MD Ordering Physician: Tamar Sanchez MD Date of Service: 09/16/25 Procedure(s): XR Hand Bilat min 3v Accession Number(s): [id number] cc: Tamar Sanchez MD; Elizabeth Dean NP [...] 09/16/25 1545 DD/ 1322 TD/TT: 09/16/25 1526 Sanitation Inspector: [facility] External Provider IMG XR PROCEDURES Final Result * XR Knee 3 Views Left (09/16/2025 1:19 PM EST) Anatomical Region Laterality Modality Lower Extremities, Knee Left Radiogra phic Imaging 09/16/2025 1:19 PM EST Narrative 09/16/2025 3:52 PM EST [facility] [address] [place] [address] XRay Report Signed Patient: Christie Ortiz MR#: [id number] [birth year] : 1975 Acct:[id number] Age/Sex: 50 / F ADM Date: 09/16/25 Loc: HO.HHCX Attending Dr: Tamar Sanchez MD Ordering Physician: Tamar Sanchez MD Date of Service: 09/16/25 Procedure(s): XR knee LT 3V Accession Number(s): [id number] cc: Tamar Sanchez MD; Elizabeth Dean NP [...] signed by Gricelda Shah MD in OV> 09/16/251549 DD/ 18 TD/TT: 09/16/25 1526 Sanitation Inspector: RUEL Procedure Note Donotuseinterpreter, Image - 09/16/[address] [address] XRay Report Signed Patient: Christie Ortiz [facility]#: [id number] [birth year] : 1975Acct:[id number] Age/Sex: 50 / FADM Date: 09/16/25 Loc: HO.HHCX Attending Dr: Tamar Sanchez MD Ordering Physician: Tamar Sanchez MD Date of Service: 09/16/25 Procedure(s): XR knee LT 3V Accession Number(s): [id number] cc: Tamar Sanchez MD; Elizabeth Dean NP [...] by Gricelda Shah MD in OV> 09/16/25 155 DD/ 18 TD/TT: 09/16/251525 Sanitation Inspector: RUEL [facility] External Provider IMG XR PROCEDURES Final Result * Hepatitis B, C Profile (09/16/2025 11:33 AM EST) ~Hepatitis B Surface Antibody REACTIVE Nonreactive [facility] Comment:REACTIVE: > 11.99 mI U/mL Hepatitis B Core Antibody Nonreactive Nonreactive [facility] Hepatitis C Antibody Nonreactive Nonreactive [facility] Comment:Antibodies to HCV no t detected; does not exclude early acuteHCV infection. Hepatitis B Surface Ag Negative Negative [facility] 09/16/2025 11:3 3 AM EST 09/16/2025 1:34 PM EST us Generic External Data Provider LAB BLOOD ORDERAB LES Final Result Performing Organization Address City/State/[facility] [[email or web address]] Co de Phone Number [facility] [address] [place] [phone] * T-SPOT??.TB (09/16/2025 11:33 AM EST) Pathologist [facility] T Spot TB Negative Negative [facility] Comment:A negative test resu lt [...] as aquantitative test. TS PANEL A 2 [facility] TS PANEL B 4 [facility] Negative Control Passed [facility] Positive Control Passed [facility] Comment:For additional infor mation, please refer tohttp://education.Videum/faq/MDH840(This link is being provided for informational/educational purposes only.)THIS TEST WAS PERFORMED AT:[email or web address]/[facility] [address] [place] [address]JDZCFIHKENDAL RON MD,PHD 09/16/2025 11:3 3 AM EST 09/16/2025 1:34 PM EST us Generic External Data Provider LAB BLOOD ORDERAB LES Final Result [facility] [address] [place] [phone] * (ABNORMAL) CBC auto differential (09/16/2025 11:33 AM EST) White Blood Count 4.3(L) 4.8 - 10.8 X10*3/uL [facility] Red Blood Count 4.32 4.20 - 5.50 X10*6/uL [facility] Hemoglobin 12.3 12.0 - 16.0 g/dl [facility] Hematocrit 38.8 37.0 - 47.0 % [facility] Mean Corpuscular Volume 89.8 80.0 - 98.0 fL [facility] Mean Corpuscular Hemoglobin 28.5 27.0 - 33.0 pg [facility] Mean Corpuscular HGB Conc 31.7 31.0 - 35.0 g/dl [facility] Red Cell Distribution Width 12.2 11.0 - 16.0 % [facility] Platelet Count 244 160 - 400 X10*3/uL [facility] Mean Platelet Volume 10.3 9.4 - 12.3 fL [facility] Neutrophils Percent Auto 65.2 45 - 73 % [facility] Imm Gran Pct Auto 0.2 0.0 - 0.4 % [facility] Lymphocytes Percent Auto 24.7 20 - 40 % [facility] Monocytes Percent Auto 7.4 2 - 11 % [facility] Eosinophils Percent Auto 2.3 0 - 4 % [facility] Basophils Percent Auto 0.2 0 - 2 % [facility] NRBC Pct Auto 0.0 0.0 - 0.2 /100WBC [facility] Neutrophils Absolute Auto 2.8 2.0 - 8.3 x10*3/uL [facility] Imm Gran Abs Auto 0.01 0.00 - 0.03 X10*3/uL [facility] Lymphocytes Absolute Auto 1.1(L) 1.2 - 4.9 X10*3/uL [facility] Monocytes Absolute Auto 0.3 0.1 - 1.2 X10*3/uL [facility] Eosinophils Absolute Auto 0.1 0.0 - 0.4 X10*3/uL [facility] Basophils Absolute Auto 0.0 0.0 - 0.2 X10*3/uL [facility] NRBC Abs Auto 0.000 0.0 - 0.012 X10*3/uL [facility] 09/16/2025 11:3 3 AM EST 09/16/2025 1:34 PM EST us Generic External Data Provider LAB BLOOD ORDERAB LES Final Result Performing Organization Address [facility] de Phone Number [facility] [address] [place] [phone] * Cyclic Citrullinated Peptide (CCP) Antibody (IgG) (09/16/2025 11:33 AM EST) Cyclic Citrullinated Peptide <16 UNITS [facility] Comment:Reference RangeNegat katelyn: <20Weak Positive: 20-39Moderate Positive: 40-59Strong Positive: >59THIS TEST WAS PERFORMED AT:[email or web address] [address] [address]PSTNSSWATHI SENIOR MD 09/16/2025 11:3 3 AM EST 09/16/2025 1:34 PM EST us Generic External Data Provider LAB BLOOD ORDERAB LES Final Result Performing Organization Address [facility] [[email or web address]] Co de Phone Number [facility] [address] [place] [address] [phone] * Sed Rate by Modified Westergren (09/16/2025 11:33 AM EST) Erythrocyte Sedimentation Rate 20 0 - 20 MM/HR [facility] Comment:Patients with polycy themia and many hemoglobin abnormalitiesmay have depressed sed rates whereas patients with anemiamay have elevated sed rates. 09/16/2025 11:3 3 AM EST 09/16/2025 1:34 PM EST us Generic External Data Provider LAB BLOOD ORDERAB LES Final Result Performing Organization Address [facility] [[email or web address]] Co de Phone Number [facility] [address] [place] [phone] * (ABNORMAL) Rheumatoid Factor (09/16/2025 11:33 AM EST) Pathologist [facility] Rheumatoid Factor 64.8(H) <15.0 IU/mL [facility] 09/16/2025 11:3 3 AM EST 09/16/2025 1:34 PM EST us Generic External Data Provider LAB BLOOD ORDERAB LES Final Result Performing Organization Address [facility] [[email or web address]] Co de Phone Number [facility] [address] [place] [phone] * C-reactive Protein (09/16/2025 11:33 AM EST) Pathologist [facility] C Reactive Protein 0.49 < or = 0.50 mg/dL [facility] 09/16/2025 11:3 3 AM EST 09/16/2025 1:34 PM EST Generic External Data Provider LAB BLOOD ORDERAB LES Final Result Performing Organization Address [facility] [[email or web address]] Co de Phone Number [facility] [address] [place] [phone] * (ABNORMAL) Comprehensive Metabolic Panel (09/16/2025 11:33 AM EST) Only the most recent of2 resultswithin the time period is included. Sodium 137 135 - 145 mmol/L [facility] Potassium 4.3 3.3 - 5.1 mmol/L [facility] Chloride 103 96 - 108 mmol/L [facility] Carbon Dioxide 27 22 - 29 mmol/L [facility] Anion Gap 11(L) 12 - 20 [facility] Urea Nitrogen (BUN) 19(H) 9 - 16 mg/dL [facility] Creatinine, Serum 0.69 0.5 - 1.4 mg/dL [facility] Estimated Glomerular Filt Rate >60 [facility] Comment:Chronic Kidney Disea se: Estimated GFR < 60 mL/min/1.62v2Jmckrt Kidney Disease: Estimated GFR < 15 mL/min/1.73m2 Glucose 88 60 - 115 mg/dL [facility] Calcium 9.0 8.4 - 10.2 mg/dL [facility] Bilirubin, Total 0.2 0.0 - 1.0 mg/dL [facility] Aspartate Amino Transferase 45(H) 5 - 31 U/L [facility] Alanine Aminotransferase 15 0 - 31 U/L [facility] Total Protein 7.6 6.5 - 8.0 g/dL [facility] Albumin Level 4.4 3.5 - 5.0 g/dL [facility] Alkaline Phosphatase 131(H) 39 - 117 U/L [facility] 09/16/2025 11:3 3 AM EST 09/16/2025 1:34 PM EST us Generic External Data Provider LAB BLOOD ORDERAB LES Final Result [facility] [address] [place] [phone] * Hemoglobin A1c (08/27/2025 10:10 AM EDT) Hemoglobin A1c 5.5 <6.0 % [facility] Comment:Hemoglobin A1C Refer ence Range Adults: 4.8 - 6.0 % Non diabetic: < 6.0 % Goal: < 7.0 %Additional Action Suggested: > 8.0 %Note: Hemoglobin A1c results are invalid for patients with abnormal amounts of HbF. Blood transfusions may impact the HbA1c concentration in the patient sample. Estimated Average Glucose 111 mg/dL [facility] Comment:eAG = Estimated ave rage glucose which is %A1C expressed asaverage glucose, using the formula of the F6J-HyzaijhFujeogq Glucose study (ADAG), Diabetes Care, Vol.31,#8,Jun. 2007 Blood Venous blood specimen / Unknown 08/27/2025 10:10 AM EDT 08/27/2025 11:26 AM EDT us Elizabeth Dean NP LAB BLOOD ORDERABLES Final Resul t [facility] [address] [place] [phone] * (ABNORMAL) POCT PERLA-14 Urine Drug [...] PM EDT) HPV High Risk Negative Negative [facility] HPV Genotype 16 Negative Negative [facility] HPV Genotype 18 Negative Negative [facility] Comment:HPV testing performe d at [facility] (CLIA#[id number]), [address] [place] [address].Testing for HPV was performed using the Osorio [...] 06/11/2025 8:30 AM EDT us Elizabeth Dean HOLLOW CORE DOOR FRAME ASSEMBLER LAB BLOOD ORDERABLES Final Resul t [facility] [address] [place] [phone] * Pap Smear (06/10/2025 1:25 PM EDT) Swab Cervix uteri structure / Unknown 06/10/2025 1:25 PM EDT 06/11/2025 8:30 AM EDT [facility] - 06/17/2025 8:19 AM EDT ----- ------- Name: Christie Ortiz Kal Age/Sex: 49/F : 1975 Unit#: [id number] Attend Dr: Elizabeth Dean HOLLOW CORE DOOR FRAME ASSEMBLER Re06/10/25 Status: [facility] REF Location: [facility] Disch: ----- ------- SPEC : [id number] RECD: 06/11/25 STATUS: SUMMER GARCIA NUM: [id number] RADHA: 06/10/[address] [facility] [address]: Elizabeth Dean HOLLOW CORE DOOR FRAME ASSEMBLER ENTERED: 06/11/25 SP TYPE: Pap Smr OT [...] and HPV testing will be performed at [facility] (CLIA #[id number]), [address] [place] [address]. Testing for HPV was performed using the [...] detected. All professional services are performed by [facility] ([address] [place] [address]; ; CLIA #[id number]). The PAP Test is a screening procedure with the inherent possibility of both false negative and false positive results. Results should be interpreted in the context of historic and current clinical findings. Reliability of the PAP Test is enhanced by performing the test on a regular repetitive basis. ----- ------- Signed (signature on file) CORDELIA Frederick ([facility]) 06/17/25 0819 ----- ------- END OF REPORT us Elizabeth Dean NP LAB CYTOLOGY ORDERABLES Final Re sult [facility] [address] [place] [phone] * HIV-1/2 Antigen and Antibodies, Fourth Generation, with Reflexes (03/04/2025 10:16 AM EDT) HIV AB/AG Nonreactive Nonreactive [facility] Comment:HIV-1 p24 Ag and/or HIV-1/HIV-2 Ab not detected.A test result that is nonreactive does not exclude thepossibility of exposure to or infection with HIV-1 and/orHIV-2. Nonreactive results in this assay for individualswith prior exposure to HIV-1 and/or HIV-2 may be due toantigen and antibody levels that are below the limit ofdetection of this assay.The Ad Summos HIV Ag/Ab Combo assay result andsupplemental assay results should be interpreted inconjunction with the patient's clinical presentation,history and other laboratory results. If the results areinconsistent with clinical evidence, additional testing issuggested to confirm the result. Blood Venous blood specimen / Unknown 03/04/2025 10:16 AM EDT 03/04/2025 11:22 AM EDT us Torres Morillo MD LAB BLOOD ORDERABLES Final Resul t [facility] [address] [place] [phone] * Lipid Panel, Standard (03/01/2023 11:10 AM EDT) Cholesterol, Total 159 <200 mg/dL [facility] HDL Cholesterol 79 > OR = 50 mg/dL [facility] Triglycerides 44 <150 mg/dL [facility] LDL Cholesterol 67 mg/dL (calc) [facility] Comment: Reference range: <100 Desirable range <100 mg/dL for primary prevention; <70 mg/dL for patients with CHD or diabetic patients with > or = 2 CHD risk factors. LDL-C is now calculated using the Rayray-Champ calculation, which is a validated novel method providing better accuracy than the Friedewald equation in the estimation of LDL-C. Rayray KESSLER et al. GUILLAUME. 2013;310(19): 6642-6940 (http://education.Collabera.Noxilizer/faq/PST736) Chol/HDLC Ratio 2.0 <5.0 (calc) [facility] Non-HDL Cholesterol 80 <130 mg/dL (calc) [facility] Comment: For patients with diabetes plus 1 major ASCVD risk factor, treating to a non-HDL-C goal of <100 mg/dL (LDL-C of <70 mg/dL) is considered a therapeutic option. Blood Venous blood specimen / Unknown 03/01/2023 11:10 AM EDT 03/01/2023 11:11 AM EDT Narrative [facility] - 03/04/2023 6:21 AM EDT FASTING:NO FASTING: NO Kyra Doyle MD LAB BLOOD ORDERABLES Final Result [facility] [address] [facility], [place] [address] [facility] [address] [place] [address] * Mammography Report 1 (09/16/2022 1:32 PM [...] Most Recently Relevant to Health Maintenance Insurance [facility] STAND[facility] MEDICARE Care Teams Punchboard Stuffer Relationship Specialty Start Date End Date Elizabeth Dean NP [address] [place] [phone] PCP - General Family Medicine 02/25/25
--- OUTSIDE RECORDS SUMMARY | 2025-10-06 18:21 | XMS_ITS | Encounter Summary ---
Author Organization [facility] Address [address] [place] [address] Phone Care Team Providers Care College Sports Coach Name Role Phone Nohemi Nunez Primary Care Provider + [phone] Encounter Details Date Type Department Care Team (Late st Contact Info) Description 01/16/2019 Ancillary Orders [facility] [address] [place] [address] Zora Hughes PA [address] [place] [address] [email or web address] Social History Tobacco Use Types Packs/Day [...] Palpitations documented in this encounter Care Teams College Sports Coach Relationship Specialty Start Date End Date Nohemi Nunez DO [address] [place] [address] PCP - General 11/09/17 documented as of this encounter Additional Source Comments The information contained in this document represents components of the legal health record. It is not the complete legal health record.[facility]
--- OUTSIDE RECORDS SUMMARY | 2025-10-06 18:21 | XMS_ITS | Clinical Summary ---
Author Organization [facility] Address [address] [place] [phone] Phone Care Team Providers Care Crab Fisher Name Role Phone Mayra Nohemi Primary Care [...] file Insurance MEDICARE PART A & B [facility] MEDICARE PART A & B [facility] MEDICARE PART A & B [place] [facility] PART A & [facility] [place] & B Member Subscriber Plan / Payer ( fective 2017-Present) Name:Christie Ortiz Member ID:[id number] Relation to Subscriber:Self Name:Christie Ortiz Subscriber ID:[id number] Payer ID:[id number] Group ID:Not on file Type:Medicare Address: [employer] [address] [place] [phone] [place] B [facility] Care Teams Crab Fisher Relationship Specialty Start Date End Date Nohemi Nunez DO [address] [place] [phone] PCP - General 11/09/17 Additional Source Comments The information contained in this document represents components of the legal health record. It is not the complete legal health record.[facility]
== END 2025-10-06 15:54 | disposition home or self-care (01) ==
LOC: HO.HPODS 15:18
PROVIDERS: PCP Nurse Practitioner Family; Visit Provider Student in an Organized Health Care Education/Training Program
DX: M79.7 Fibromyalgia (principal); S93.401A Sprain of unspecified ligament of right ankle, initial encounter; M25.571 Pain in right ankle and joints of right foot; G89.29 Other chronic pain; M25.373 Other instability, unspecified ankle
CPT/HCPCS: 99214

== ENCOUNTER → 2025-10-06 15:17 | Outpatient (BNVA) | payer MEDICARE, MEDICAID, SELFPAY | PROVIDERS: PCP Nurse Practitioner Family; Visit Provider Student in an Organized Health Care Education/Training Program | DX: S93.401A Sprain of unspecified ligament of right ankle, initial encounter (principal); M79.7 Fibromyalgia; M25.371 Other instability, right ankle; X58.XXXA Exposure to other specified factors, initial encounter; Y93.9 Activity, unspecified; Y92.9 Unspecified place or not applicable; Y99.9 Unspecified external cause status | CPT/HCPCS: 99212 ==